=== PATIENT | female | born 1955 | race Caucasian/White ===

== ENCOUNTER 2016-09-08 17:15 | Inpatient (IN) | payer MEDICARE ==
[~2016-09-08] VITALS: Ht 170.2 cm; Wt 103.6 kg
[~2016-09-08 17:15] MED LIST: /ANUSHCSU PR; /ESOM40CA PO; /METO5TA PO; ACET50TA PO; ALBU17IN2 INH; ALBU20IN INH; ALBU83IN INH; ANUS2.5C2 TOP; ASPI81CH PO; ASPI81TA85 PO; BACITAB3 PO; BACT400T PO; BACT800T5 PO; DEBR6.5S AD; DIPH1CAP11 PO; DOCU10CA PO; DOXY200C PO; DOXY75CA3 PO; FLUT22IN INH; FURO40TA2 PO; MUCI600T34 PO; NEXI20GR PO; PRED10PA PO; PRED10TA PO; PRED10TA2 PO; RANI1TAB6 PO; REGL5TAB2 PO; ROBISYP5 PO; SYMB16INH INH; SYMB80INH INH
[2016-09-08 18:05] LABS: BASO # 0.1 K/mm3 (0.0-0.2); BASO % 0.8 % (0.0-1.0); EOS # 0.3 K/mm3 (0.0-0.50); EOS % 2.5 % (0.0-3.0); LARGE UNSTAINED CELL # 0.1 K/mm3 (0.0-0.4); LYMPH # 1.1 K/mm3 (1.5-4.5); LYMPH % 9.5 % (24.0-44.0); MEAN CORPUSCULAR VOLUME 87.5 fl (80.0-96.0); MONO # 0.3 K/mm3 (0.0-0.8); MONO % 3.1 % (0.0-5.0); NEUTROPHILS # 8.8 K/mm3 (1.8-7.7); NEUTROPHILS % 83.2 % (36.0-66.0); PLATELET COUNT, AUTOMATED 242 k/mm3 (150-450); RED CELL DISTRIBUTION WIDTH 14.1 % (11.5-14.5); WHITE BLOOD COUNT 10.6 K/mm3 (4.0-10.0)
[2016-09-08] MEDS ORDERED: BENZONATATE 100 MG CAP PO ONE (18:15)
[2016-09-08 18:17] LABS: CALCIUM LEVEL 9.5 MG/DL (8.5-10.1); CREATININE FOR GFR 1.11 MG/DL (0.55-1.02); GLOMERULAR FILTRATION RATE 53.6 (>51); POTASSIUM SERUM 4.2 MEQ/L (3.5-5.1)
[2016-09-08 18:28] LABS: ABG BASE EXCESS 0.7 (-2.0-2.0); ABG HCO3 24.9 MEQ/L (22.0-26.0); ABG PARTIAL PRESSURE CO2 38.8 mmHg (35.0-45.0); ABG PARTIAL PRESSURE O2 49.8 mmHg (75.0-100.0); ABG STANDARD HCO3 24.8 MEQ/L (22.0-26.0); ABG TOTAL CO2 26.1 MEQ/L (22.0-29.0); ABG pH (ARTERIAL) 7.426 UNITS (7.350-7.450)
[2016-09-08] MEDS: IPRATROPIUM 0.5MG/ALBUTEROL 2.5MG INH SOL UD 3ML (DUONEB)(J7620) NEB PRN ×3 (18:30→18:40)
--- NOTE | 2016-09-08 19:02 | REP ---
PORTABLE CHEST, ONE VIEW: HISTORY: Cough. COMPARISON: 01/14/2016 An increase in interstitial markings is present in the lungs. Bullae are present in the upper lobes. The heart is normal in size. The pulmonary vasculature is normal in appearance. IMPRESSION: COPD. Signed by Gucci Tabor MD 09/08/2016 07:16 P
[2016-09-08] MEDS ORDERED: ONDANSETRON 4MG/2ML VIAL (J2405) IV PRN (19:45)
[2016-09-08] MEDS ORDERED: ALBUTEROL SULFATE 2.5 MG/0.5 ML INH NEB SOLN NEB PRN (19:45)
[2016-09-08] MEDS ORDERED: BISACODYL 10 MG SUPP PR PRN (19:45)
[2016-09-08] MEDS: IPRATROPIUM 0.5MG/ALBUTEROL 2.5MG INH SOL UD 3ML (DUONEB)(J7620) NEB SCH (20:00)
[2016-09-08] MEDS ORDERED: ASPI1TAB PO (20:14)
[2016-09-08 20:15] VITALS: BP 134/72
[2016-09-08] MEDS ORDERED: DOCU100C PO (20:17)
[2016-09-08] MEDS ORDERED: GUAISYP4 PO (20:17)
[2016-09-08] MEDS ORDERED: FURO40TA2 PO (20:17)
[2016-09-08] MEDS: SENOKOT S TAB PO SCH (20:22)
[2016-09-08] MEDS ORDERED: diphenhydrAMINE INJ 50MG/ML VIAL (J1200) IV PRN (21:15)
[2016-09-08] MEDS ORDERED: predniSONE 20 MG TAB PO ONE (21:15)
[2016-09-08] MEDS: cefTRIAXone SOD 1 GM in D5W MINI-BAG PLUS 50 ML IV SCH (21:46)
[2016-09-08] MEDS: OMEPRAZOLE 20 MG CAP PO SCH (21:46)
[2016-09-08] MEDS: ACETAMINOPHEN TAB 650MG DOSE (2X325MG) PO PRN (21:46)
[2016-09-08 22:00] VITALS: BP 130/68
[2016-09-09] MEDS: IPRATROPIUM 0.5MG/ALBUTEROL 2.5MG INH SOL UD 3ML (DUONEB)(J7620) NEB SCH ×4 (01:26→17:56)
[2016-09-09 01:27] VITALS: O2SAT 89
[2016-09-09] MEDS ORDERED: SODIUM CHLORIDE 0.9% 1000 ML IV ONE (02:00)
[2016-09-09 06:37] LABS: BASO % 0.3 % (0.0-1.0); EOS # 0.1 K/mm3 (0.0-0.50); LARGE UNSTAINED CELL # 0.1 K/mm3 (0.0-0.4); LARGE UNSTAINED CELL % 0.7 % (0.0-4.0); LYMPH # 0.5 K/mm3 (1.5-4.5); LYMPH % 5.8 % (24.0-44.0); MEAN CORPUSCULAR HEMOGLOBIN 28.2 pg (27.0-33.0); MEAN CORPUSCULAR HGB CONC 32.2 g/dl (32.0-36.5); MEAN CORPUSCULAR VOLUME 87.5 fl (80.0-96.0); MONO # 0.2 K/mm3 (0.0-0.8); MONO % 2.3 % (0.0-5.0); NEUTROPHILS # 7.1 K/mm3 (1.8-7.7); NEUTROPHILS % 89.8 % (36.0-66.0); PLATELET COUNT, AUTOMATED 218 k/mm3 (150-450); WHITE BLOOD COUNT 7.9 K/mm3 (4.0-10.0)
[2016-09-09] MEDS: ACETAMINOPHEN TAB 650MG DOSE (2X325MG) PO PRN ×3 (06:46→18:41)
[2016-09-09 06:49] LABS: ANION GAP 8 MEQ/L (8-16); BLOOD UREA NITROGEN 12 MG/DL (7-18); CALCIUM LEVEL 9.3 MG/DL (8.5-10.1); CARBON DIOXIDE LEVEL 23 MEQ/L (21-32); CHLORIDE LEVEL 110 MEQ/L (98-107); CREATININE FOR GFR 0.95 MG/DL (0.55-1.02); GLOMERULAR FILTRATION RATE > 60.0 (>51); GLUCOSE, FASTING 147 MG/DL (70-105); POTASSIUM SERUM 4.3 MEQ/L (3.5-5.1); SODIUM LEVEL 141 MEQ/L (136-145)
--- NOTE | 2016-09-09 07:28 | HPE ---
DATE OF ADMISSION: 09/08/2016 PRIMARY CARE PROVIDER: Dr. Bacilio Hughes CHIEF COMPLAINT: Increasing cough and shortness of breath for two days. PAST MEDICAL HISTORY: 1. Chronic obstructive pulmonary disease (COPD). 2. Obstructive sleep apnea (JIGNESH) on CPAP. 3. Gastroesophageal reflux disease (GERD). 4. Hypertension. 5. Gastroparesis. 6. Chronic hypoxic respiratory failure on 2 liters home oxygen. 7. Obesity. HISTORY OF PRESENT ILLNESS: This is a 60-year-old female who was in her usual state of health about two days ago when she got wet coming back from the store in the rain and since then she developed increasing shortness of breath and cough. She was using her puffers as well as nebulizers at home without improvement in the symptoms so came into the emergency room. In the emergency department (ED), the patient was noted to be hypoxic at 82% with 2 liters nasal oxygen. The patient was given back to back nebulizers with some improvement in her symptoms, however, still continued to be tachycardic and tachypneic so was admitted to the hospitalist service for COPD exacerbation. PAST SURGICAL HISTORY: 1. Hysterectomy. 2. Appendectomy. 3. Brain surgery as a child. 4. Cholecystectomy. FAMILY HISTORY: Noncontributory. ALLERGIES: - PENICILLIN - AZITHROMYCIN (apparently cause hives, however, patient has received them before) - ARIPIPRAZOLE (hives) - SULFA (vomiting) - QUINOLONES (rash) - TETRACYCLINE and DOXYCYCLINE (says has allergy, however, is vague) HOME MEDICATIONS: - albuterol sulfate 2.5 mg inhalation by nebulizer four times a day as needed - albuterol sulfate 2 puff inhalation every four hours as needed - aspirin 81 mg daily - Symbicort 2 puffs twice a day - diphenhydramine 25 mg by mouth every 6 hours as needed allergic reaction - Colace 100 mg by mouth twice a day as needed constipation - Lasix 40 mg daily - guaifenesin codeine 10 mg every 4 hours as needed cough - ranitidine two tablets by mouth daily REVIEW OF SYSTEMS: Complains of subjective fevers, however, has been afebrile here. Complains of cough and increased shortness of breath. Complains of some right ear pain. Denies any abdominal pain or nausea, however, has some vomiting which is related to bouts of coughing. Denies any chest pain or palpitations. PHYSICAL EXAMINATION: VITAL SIGNS: Temperature 98.9. Pulse 118. Blood pressure 153/83. Pulse oximetry 94% with 4 liters oxygen by nasal cannula. GENERAL: Patient awake, alert, and oriented times three sitting up in bed in no acute distress. HEENT: Normocephalic, atraumatic. Moist mucous membranes. Anicteric eyes. CHEST: Bilateral wheezing with poor air entry. CARDIOVASCULAR: S1, S2, regular, tachycardic. No rub, murmur or gallop. ABDOMEN: Obese, soft, nontender. Bowel sounds present. EXTREMITIES: No edema. LABORATORY DATA: WBC 10.6, hemoglobin 15.6 and platelets 242. Sodium 141, potassium 4.2, chloride 108, bicarbonate 25, BUN 11, creatinine 1.1, glucose 108, lactic acid 2.1, calcium 9.5. Blood gas with pH 7.42, pCO2 38, pO2 49.8. Chest x-ray shows features of COPD and emphysema. ASSESSMENT: This is a 60-year-old female admitted for chronic obstructive pulmonary disease exacerbation. PLAN: 1. For COPD exacerbation, will continue the patient's nebulizers, oral prednisone, as well as will give ceftriaxone. The patient does have history of penicillin allergy, says causes rash but is vague about that and it is noted from the review of the chart that the patient has received ceftriaxone in the past. 2. Hypoxia. The patient has chronic hypoxic respiratory failure, but has increased oxygen requirement at this point because of COPD exacerbation. 3. Lactic acidosis. Most probably due to increased work of breathing from COPD exacerbation. Blood cultures have been sent to rule out for any infection. 4. Obstructive sleep apnea. Will continue with CPAP with home settings. 5. Gastroesophageal reflux disease and history of gastroparesis. Will continue with omeprazole twice a day. 6. Deep vein thrombosis prophylaxis has been ordered. 7. Gastrointestinal prophylaxis has been ordered. 8. Right ear pain with some redness. Patient is going to be started on ceftriaxone which should cover for any otitis related to bacterial infection.
[2016-09-09] MEDS: BUDESONIDE 0.5 MG/2 ML INHALATION SUSPENSION INH SCH ×2 (07:40→19:57)
[2016-09-09] MEDS: FORMOTEROL FUMARATE 20 MCG/2 ML INHALATION SOLUTION (PERFOROMIST) INH SCH ×2 (07:40→19:56)
[2016-09-09] MEDS ORDERED: predniSONE 20 MG TAB PO SCH (09:00)
[2016-09-09] MEDS ORDERED: FUROSEMIDE 40 MG TAB PO SCH (09:00)
[2016-09-09] MEDS: ENOXAPARIN 40 MG/0.4 ML SYRINGE (J1650) SC SCH (09:22)
[2016-09-09] MEDS: ASPIRIN 81 MG ENTERIC TAB PO SCH (09:23)
[2016-09-09] MEDS: OMEPRAZOLE 20 MG CAP PO SCH ×2 (09:23→20:25)
[2016-09-09] MEDS: SENOKOT S TAB PO SCH ×2 (09:23→20:26)
--- NOTE | 2016-09-09 10:57 | IPNPDOC ---
Subjective Date Seen The patient was seen on 09/09/16. Subjective Chief Complaint/HPI The patient is a 60-year-old female admitted with a reason for visit of Copd Exacerbation. General: Denies: Chills, Fatigue, Malaise, Night Sweats, Normal Appetite, Other Symptoms, ROS Unobtainable Constitutional: Denies: Chills, Fatigue, Fever, Lethargy, Malaise, Night Sweats , Other, Weakness, Weight Loss Eyes: Denies: Conjunctivae inflammation, Eyelid inflammation, Other, Pain, Redness, Vision change ENT: Denies: Dysphagia, Ear Pain, Epistaxis, Head Aches, Other Symptoms, Post Nasal Drip, Sinus Congestion, Sore Throat Skin: Denies: Breakdown, Bruising, Dry, Itching, Jaundice, Lesions, Nail Changes, Other, Rash Pulmonary: Reports: Cough (productive thick sputum), Dyspnea, Denies: Other Symptoms, Pleuritic Chest Pain Cardiovascular: Denies: Chest Pain, Edema, Lt Headedness, Orthopnea, Other Symptoms, Palpitations, Paroxysmal Noc. Dyspnea Gastrointestinal: Denies: Abdominal Pain, Constipation, Diarrhea, Hematochezia , Melena, Nausea, Other Symptoms, Vomiting Genitourinary: Denies: Dysuria, Frequency, Hematuria, Incontinence, Other Symptoms, Retention Hematologic: Denies: Bleeding Excessively, Bruising, Enlarged Lymph Nodes, Other Hematologic, Petecchia, Purpura Objective Physical Examination General Exam: Positive: Alert, Cooperative, No Acute Distress Eye Exam: Positive: Conjunctiva & lids normal, EOMI, PERRLA, Negative: Sclera icteric ENT Exam: Positive: Atraumatic, Mucous membr. moist/pink Neck Exam: Positive: Supple Chest Exam: Positive: Rales, Wheezing Heart Exam: Positive: Rate Normal, Regular Rhythm Abdomen Exam: Positive: Normal bowel sounds, Other (obese), Soft, Negative: Tenderness Psych Exam: Positive: Mental status NL, Oriented x 3 Assessment /Plan Problems (1) Acute on chronic respiratory failure with hypoxia Status: Acute Response to Treatment: Improving Discussed With: Patient Problem Specific Plan: Monitor Clinically Problem Text: Sputum culture pending Respiratory panel pending Continue steroids, respiratory regimen. IS, acapella, mucolytics. Multiple drug allergies. Has been started on ceftriaxone. Supplemental O2 to maintain O2 sats 88-92%. Baseline 2L. Lactic acidosis- appears to be improving-trending down. continue to follow. (2) COPD exacerbation Status: Acute Discussed With: Patient Problem Specific Plan: Monitor Clinically Problem Text: Continue as per above - respiratory failure. (3) JIGNESH on CPAP Status: Chronic Discussed With: Patient Problem Text: Continue with CPAP. (4) GERD (gastroesophageal reflux disease) Status: Chronic Problem Text: Prilosec (5) HTN (hypertension) Status: Chronic Discussed With: Patient Problem Specific Plan: Monitor Clinically Problem Text: Lasix on hold. (6) Gastroparesis Status: Chronic Discussed With: Patient Problem Specific Plan: Monitor Clinically (7) Obesity Status: Chronic Problem Text: Further complicating factor to her medical management. (8) Nicotine addiction Status: Chronic Discussed With: Patient Problem Text: Counselling and cessation assistance discussed at bedside. Agreeable to start nicotine replacement therapy. Plan/VTE VTE Prophylaxis Ordered?: Yes (Lovenox) Plan Diet: Advance Activity: Continue Current Therapy: PT, OT Medications: Start Antibiotics Respiratory: Wean Oxygen Diagnostics: Repeat Labs in AM, Obtain Cultures Anticipated Discharge: Home, Home With Services VS, I&O, 24H, [facility] Vital Signs/I&O Vital Signs Date Time Temp Pulse Resp B/P Pulse Ox O2 Delivery O2 Flow Rate FiO2 09/09/16 09:00 Nasal Cannula 3.0 09/09/16 01:27 87 09/09/16 01:27 89 09/08/16 22:00 97.9 20 130/68 I&O- Last 24 Hours up to 6 AM 09/09/16 05:59 Intake Total 1710 ml Output Total 500 ml Balance 1210 ml Laboratory Data 24H LABS Laboratory Tests 2 09/08/16 17:40: Anion Gap 8, White Blood Count 10.6H, Red Blood Count 5.56H, Hemoglobin 15.6, Hematocrit 48.7H, Mean Corpuscular Volume 87.5, Mean Corpuscular Hemoglobin 28.0 , Mean Corpuscular Hemoglobin Concent 32.0, Red Cell Distribution Width 14.1, Platelet Count 242, Neutrophils (%) (Auto) 83.2H, Lymphocytes (%) (Auto) 9.5L, Monocytes (%) (Auto) 3.1, Eosinophils (%) (Auto) 2.5, Basophils (%) (Auto) 0.8, Neutrophils # (Auto) 8.8H, Lymphocytes # (Auto) 1.1L, Monocytes # (Auto) 0.3, Eosinophils # (Auto) 0.3, Basophils # (Auto) 0.1, Blood Urea Nitrogen 11, Creatinine 1.11H, Sodium Level 141, Potassium Level 4.2, Chloride Level 108H, Carbon Dioxide Level 25, Calcium Level 9.5, Glomerular Filtration Rate 53.6, Lactic Acid Level 2.1*H, Large Unclassified Cells # 0.1, Large Unclassified Cells % 1.0 09/08/16 18:05: Arterial Blood pH 7.426, Arterial Blood Partial Pressure CO2 38.8, Arterial Blood Partial Pressure O2 49.8*L, Arterial Blood Total CO2 26.1, Arterial Blood HCO3 24.9, Arterial Blood Base Excess 0.7, Arterial Blood Oxygen Saturation 87.3L, Blood Gas Bicarbonate Standard 24.8 09/08/16 22:14: Lactic Acid Followup at 4 Hours 4.7*H 09/09/16 02:02: Lactic Acid Level 2.7*H 09/09/16 06:14: Anion Gap 8, White Blood Count 7.9, Red Blood Count 5.14, Hemoglobin 14.5, Hematocrit 44.9, Mean Corpuscular Volume 87.5, Mean Corpuscular Hemoglobin 28.2 , Mean Corpuscular Hemoglobin Concent 32.2, Red Cell Distribution Width 14.0, Platelet Count 218, Neutrophils (%) (Auto) 89.8H, Lymphocytes (%) (Auto) 5.8L, Monocytes (%) (Auto) 2.3, Eosinophils (%) (Auto) 1.0, Basophils (%) (Auto) 0.3, Neutrophils # (Auto) 7.1, Lymphocytes # (Auto) 0.5L, Monocytes # (Auto) 0.2, Eosinophils # (Auto) 0.1, Basophils # (Auto) 0.0, Blood Urea Nitrogen 12, Creatinine 0.95, Sodium Level 141, Potassium Level 4.3, Chloride Level 110H, Carbon Dioxide Level 23, Calcium Level 9.3, Glomerular Filtration Rate > 60.0, Lactic Acid Level 2.3*H, Large Unclassified Cells # 0.1, Large Unclassified Cells % 0.7 09/09/16 10:38: CBC/BMP Laboratory Tests 09/08/16 17:40 Calcium Level 9.5, Red Blood Count 5.56 H, Mean Corpuscular Volume 87.5, Mean Corpuscular Hemoglobin 28.0, Mean Corpuscular Hemoglobin Concent 32.0, Red Cell Distribution Width 14.1, Neutrophils (%) (Auto) 83.2 H, Lymphocytes (%) (Auto) 9.5 L, Monocytes (%) (Auto) 3.1, Eosinophils (%) (Auto) 2.5, Basophils (%) (Auto ) 0.8, Neutrophils # (Auto) 8.8 H, Lymphocytes # (Auto) 1.1 L, Monocytes # (Auto ) 0.3, Eosinophils # (Auto) 0.3, Basophils # (Auto) 0.1 09/09/16 06:14 Calcium Level 9.3, Red Blood Count 5.14, Mean Corpuscular Volume 87.5, Mean Corpuscular Hemoglobin 28.2, Mean Corpuscular Hemoglobin Concent 32.2, Red Cell Distribution Width 14.0, Neutrophils (%) (Auto) 89.8 H, Lymphocytes (%) (Auto) 5.8 L, Monocytes (%) (Auto) 2.3, Eosinophils (%) (Auto) 1.0, Basophils (%) (Auto ) 0.3, Neutrophils # (Auto) 7.1, Lymphocytes # (Auto) 0.5 L, Monocytes # (Auto) 0.2, Eosinophils # (Auto) 0.1, Basophils # (Auto) 0.0 Microbiology Microbiology 09/08/16 Blood Culture, Received Pending 09/08/16 Blood Culture, Received Pending 09/08/16 Gram Stain - Final, Complete 09/08/16 Sputum Culture - Final, Complete 09/08/16 Influenza Virus Type A Antigen - Final, Complete 09/08/16 Influenza Virus Type B Antigen - Final, Complete MOISES REAGAN MD Sep 09, 2016 10:57
[2016-09-09] MEDS ORDERED: NS 1,000 ML IV SCH (11:30)
[2016-09-09] MEDS: methylPREDNISolone INJ 125 MG/2 ML VIAL (J2930) IV SCH (12:58)
[2016-09-09] MEDS: NICOTINE 14 MG/24 HR TRANSDERMAL TD SCH (12:59)
[2016-09-09 14:00] VITALS: BP 146/75
[2016-09-09] MEDS: guaiFENesin SYRUP 200 MG/10 ML UDC PO PRN (15:54)
--- NOTE | 2016-09-09 18:28 | ECGEPIP ---
Stationary ECG Study [facility] - ED Test Date: 2016-09-08 Pat Name: EILZABETH BRENNAN Department: Room: - Gender: F Mental Health Technician: : [id number] Requested By: TEO TAVERAS PA-C. Order Number: [id number] Reading MD: Sukhjinder Mckeon Measurements Intervals Mcewen Rate: 125 P: 73 ID: [id number] QRS: 37 QRSD: 78 T: 67 QT: 336 QTc: 485 Interpretive Statements SINUS TACHYCARDIA POSSIBLE LAE NONSPECIFIC ST & T-WAVE ABNORMALITY SIMILAR TO 03/08/15 Electronically Signed On 09-09-2016 18:27:40 EDT by Sukhjinder Mckeon
[2016-09-09 19:11] LABS: CALCIUM LEVEL 9.3 MG/DL (8.5-10.1); CREATININE FOR GFR 1.13 MG/DL (0.55-1.02); GLOMERULAR FILTRATION RATE 52.5 (>51); POTASSIUM SERUM 4.8 MEQ/L (3.5-5.1)
[2016-09-09 20:20] VITALS: BP 133/74
[2016-09-09] MEDS: cefTRIAXone SOD 1 GM in D5W MINI-BAG PLUS 50 ML IV SCH (20:26)
[2016-09-09] MEDS: OSELTAMIVIR PHOSPHATE 75 MG CAP (TAMIFLU) PO SCH (20:26)
[2016-09-10] MEDS: ACETAMINOPHEN TAB 650MG DOSE (2X325MG) PO PRN ×5 (00:33→22:01)
[2016-09-10] MEDS: methylPREDNISolone INJ 125 MG/2 ML VIAL (J2930) IV SCH ×2 (00:33→12:47)
[2016-09-10] MEDS: guaiFENesin SYRUP 200 MG/10 ML UDC PO PRN ×3 (00:33→17:48)
[2016-09-10] MEDS: ANALGESIC BALM CRM 120 GM TOP PRN (00:34)
[2016-09-10] MEDS: IPRATROPIUM 0.5MG/ALBUTEROL 2.5MG INH SOL UD 3ML (DUONEB)(J7620) NEB SCH ×4 (01:39→20:00)
[2016-09-10 05:40] VITALS: BP 160/89
[2016-09-10 06:38] LABS: BASO % 0.1 % (0.0-1.0); EOS # 0.1 K/mm3 (0.0-0.50); EOS % 0.7 % (0.0-3.0); LARGE UNSTAINED CELL # 0.1 K/mm3 (0.0-0.4); LARGE UNSTAINED CELL % 0.6 % (0.0-4.0); LYMPH # 0.5 K/mm3 (1.5-4.5); LYMPH % 5.3 % (24.0-44.0); MEAN CORPUSCULAR HEMOGLOBIN 28.2 pg (27.0-33.0); MEAN CORPUSCULAR HGB CONC 31.8 g/dl (32.0-36.5); MEAN CORPUSCULAR VOLUME 88.8 fl (80.0-96.0); MONO # 0.3 K/mm3 (0.0-0.8); MONO % 2.9 % (0.0-5.0); NEUTROPHILS # 8.7 K/mm3 (1.8-7.7); NEUTROPHILS % 90.5 % (36.0-66.0); PLATELET COUNT, AUTOMATED 222 k/mm3 (150-450); RED CELL DISTRIBUTION WIDTH 14.2 % (11.5-14.5); WHITE BLOOD COUNT 9.6 K/mm3 (4.0-10.0)
[2016-09-10 06:55] LABS: ANION GAP 5 MEQ/L (8-16); BLOOD UREA NITROGEN 13 MG/DL (7-18); CALCIUM LEVEL 9.1 MG/DL (8.5-10.1); CARBON DIOXIDE LEVEL 27 MEQ/L (21-32); CHLORIDE LEVEL 110 MEQ/L (98-107); GLOMERULAR FILTRATION RATE > 60.0 (>51); GLUCOSE, FASTING 163 MG/DL (70-105); POTASSIUM SERUM 4.6 MEQ/L (3.5-5.1); SODIUM LEVEL 142 MEQ/L (136-145)
[2016-09-10] MEDS: BUDESONIDE 0.5 MG/2 ML INHALATION SUSPENSION INH SCH ×2 (07:23→19:47)
[2016-09-10] MEDS: FORMOTEROL FUMARATE 20 MCG/2 ML INHALATION SOLUTION (PERFOROMIST) INH SCH ×2 (07:24→19:47)
--- NOTE | 2016-09-10 08:04 | IPNPDOC ---
Subjective Date Seen The patient was seen on 09/10/16. Subjective Chief Complaint/HPI The patient is a 60-year-old female admitted with a reason for visit of Copd Exacerbation. General: Denies: Chills, Fatigue, Malaise, Night Sweats, Normal Appetite, Other Symptoms, ROS Unobtainable Constitutional: Denies: Chills, Fatigue, Fever, Lethargy, Malaise, Night Sweats , Other, Weakness, Weight Loss Eyes: Denies: Conjunctivae inflammation, Eyelid inflammation, Other, Pain, Redness, Vision change ENT: Denies: Dysphagia, Ear Pain, Epistaxis, Head Aches, Other Symptoms, Post Nasal Drip, Sinus Congestion, Sore Throat Skin: Denies: Breakdown, Bruising, Dry, Itching, Jaundice, Lesions, Nail Changes, Other, Rash Pulmonary: Reports: Cough (productive yellow/brown sputum), Dyspnea, Denies: Other Symptoms, Pleuritic Chest Pain Cardiovascular: Denies: Chest Pain, Edema, Lt Headedness, Orthopnea, Other Symptoms, Palpitations, Paroxysmal Noc. Dyspnea Gastrointestinal: Reports: Abdominal Pain, Denies: Constipation, Diarrhea, Hematochezia, Melena, Nausea, Other Symptoms , Vomiting Objective Physical Examination General Exam: Positive: Alert, Cooperative, No Acute Distress, Other (hirsutism ) Eye Exam: Positive: Conjunctiva & lids normal, EOMI, PERRLA, Negative: Sclera icteric ENT Exam: Positive: Atraumatic, Mucous membr. moist/pink Neck Exam: Positive: Supple Chest Exam: Positive: Diminished, Rales, Wheezing Heart Exam: Positive: Rate Normal, Regular Rhythm Abdomen Exam: Positive: Normal bowel sounds, Other (obese), Soft, Negative: Tenderness Psych Exam: Positive: Mental status NL, Oriented x 3 Assessment /Plan Problems (1) Acute on chronic respiratory failure with hypoxia Status: Acute Response to Treatment: Improving Discussed With: Patient Problem Specific Plan: Monitor Clinically Problem Text: Sputum culture pending - repeat - previous specimen contaminated. Respiratory panel positive influenza B. Continue steroids, respiratory regimen. IS, acapella, mucolytics. Multiple drug allergies. Continue ceftriaxone. Supplemental O2 to maintain O2 sats 88-92%. Baseline 2L. Lactic acidosis- likely secondary to work of breathing - continue to follow. (2) COPD exacerbation Status: Acute Discussed With: Patient Problem Specific Plan: Monitor Clinically Problem Text: Continue as per above - respiratory failure. (3) JIGNESH on CPAP Status: Chronic Discussed With: Patient Problem Text: Continue with CPAP. (4) GERD (gastroesophageal reflux disease) Status: Chronic Problem Text: Prilosec (5) HTN (hypertension) Status: Chronic Discussed With: Patient Problem Specific Plan: Monitor Clinically Problem Text: Lasix on hold. (6) Gastroparesis Status: Chronic Discussed With: Patient Problem Specific Plan: Monitor Clinically (7) Obesity Status: Chronic Problem Text: Further complicating factor to her medical management. (8) Nicotine addiction Status: Chronic Discussed With: Patient Problem Text: Counselling and cessation assistance discussed at bedside. Agreeable to start nicotine replacement therapy. Plan/VTE VTE Prophylaxis Ordered?: Yes (Lovenox) Plan Diet: Advance Activity: Continue Current Therapy: PT, OT Medications: Start Antibiotics Respiratory: Wean Oxygen Diagnostics: Repeat Labs in AM, Obtain Cultures, CT Anticipated Discharge: Home, Home With Services VS, I&O, 24H, [facility] Vital Signs/I&O Vital Signs Date Time Temp Pulse Resp B/P Pulse Ox O2 Delivery O2 Flow Rate FiO2 09/10/16 05:40 97.7 88 17 160/89 93 Nasal Cannula 4.0 I&O- Last 24 Hours up to 6 AM 09/10/16 06:00 Intake Total 1440 ml Output Total 500 ml Balance 940 ml Laboratory Data 24H LABS Laboratory Tests 2 09/09/16 10:38: Lactic Acid Followup at 4 Hours 3.1*H 09/09/16 18:35: Anion Gap 4L, Blood Urea Nitrogen 14, Creatinine 1.13H, Sodium Level 140, Potassium Level 4.8, Chloride Level 109H, Carbon Dioxide Level 27, Calcium Level 9.3, Glomerular Filtration Rate 52.5 09/10/16 06:22: Anion Gap 5L, Blood Urea Nitrogen 13, Creatinine 1.00, Sodium Level 142, Potassium Level 4.6, Chloride Level 110H, Carbon Dioxide Level 27, Calcium Level 9.1, Glomerular Filtration Rate > 60.0, White Blood Count 9.6, Red Blood Count 5.15, Hemoglobin 14.5, Hematocrit 45.7, Mean Corpuscular Volume 88.8, Mean Corpuscular Hemoglobin 28.2, Mean Corpuscular Hemoglobin Concent 31.8L, Red Cell Distribution Width 14.2, Platelet Count 222, Neutrophils (%) (Auto) 90.5H, Lymphocytes (%) (Auto) 5.3L, Monocytes (%) (Auto) 2.9, Eosinophils (%) ( Auto) 0.7, Basophils (%) (Auto) 0.1, Neutrophils # (Auto) 8.7H, Lymphocytes # ( Auto) 0.5L, Monocytes # (Auto) 0.3, Eosinophils # (Auto) 0.1, Basophils # (Auto ) 0.0, Large Unclassified Cells # 0.1, Large Unclassified Cells % 0.6 CBC/BMP Laboratory Tests 09/09/16 18:35 Calcium Level 9.3 09/10/16 06:22 Calcium Level 9.1, Red Blood Count 5.15, Mean Corpuscular Volume 88.8, Mean Corpuscular Hemoglobin 28.2, Mean Corpuscular Hemoglobin Concent 31.8 L, Red Cell Distribution Width 14.2, Neutrophils (%) (Auto) 90.5 H, Lymphocytes (%) ( Auto) 5.3 L, Monocytes (%) (Auto) 2.9, Eosinophils (%) (Auto) 0.7, Basophils (% ) (Auto) 0.1, Neutrophils # (Auto) 8.7 H, Lymphocytes # (Auto) 0.5 L, Monocytes # (Auto) 0.3, Eosinophils # (Auto) 0.1, Basophils # (Auto) 0.0 Microbiology Microbiology 09/08/16 Blood Culture - Preliminary, Resulted No growth after 24 hours . All specim... 09/08/16 Blood Culture - Preliminary, Resulted No growth after 24 hours . All specim... 09/08/16 Gram Stain - Final, Complete 09/08/16 Sputum Culture - Final, Complete 09/08/16 Influenza Virus Type A Antigen - Final, Complete 09/08/16 Influenza Virus Type B Antigen - Final, Complete 09/08/16 Respiratory Virus Panel (PCR) (JOHNNY) - Final, Complete Influenza B MOISES REAGAN MD Sep 10, 2016 08:04
--- NOTE | 2016-09-10 09:05 | REP ---
CT abdomen pelvis without IV or bowel contrast: Comparison is 07/29/2008. The visualized lung nava are unremarkable except for dependent atelectasis. The unenhanced hepatic parenchyma is homogeneous and unremarkable. There are surgical clips in the gallbladder fossa compatible with cholecystectomy. The pancreas and spleen are normal size and unremarkable. The adrenals and kidneys are normal size and unremarkable. On the comparison study there was a right renal cyst at the mid pole. This is seen to better advantage on the comparison study that was performed with IV contrast. The abdominal aorta is unremarkable. The bowel and mesentery are unremarkable. A few surgical clips in the mesentery are incidentally noted. These are unchanged. Pelvis: There is a hysterectomy. Vaginal cuff and adnexa are unremarkable. The bladder is unremarkable. There is descending colon and sigmoid colon diverticulosis without diverticulitis. The bladder is unremarkable. There is no adenopathy or ascites. Impression: Diverticulosis without diverticulitis. No bowel distension or obstruction. Cholecystectomy and hysterectomy. The patient reportedly has an appendectomy. No adenopathy, mass or ascites. Signed by Herminio Batista MD 09/10/2016 08:57 A
[2016-09-10] MEDS: ENOXAPARIN 40 MG/0.4 ML SYRINGE (J1650) SC SCH (09:27)
[2016-09-10] MEDS: ASPIRIN 81 MG ENTERIC TAB PO SCH (09:27)
[2016-09-10] MEDS: SENOKOT S TAB PO SCH ×2 (09:27→21:59)
[2016-09-10] MEDS: OSELTAMIVIR PHOSPHATE 75 MG CAP (TAMIFLU) PO SCH ×2 (09:27→21:59)
[2016-09-10] MEDS: OMEPRAZOLE 20 MG CAP PO SCH ×2 (09:27→21:59)
[2016-09-10] MEDS: NICOTINE 14 MG/24 HR TRANSDERMAL TD SCH (09:28)
[2016-09-10 14:00] VITALS: BP 138/74
--- NOTE | 2016-09-10 19:08 | ECHO ---
DATE OF PROCEDURE: 09/09/2016 AGE: 60 GENDER: Female HEIGHT: 67 inches WEIGHT: 227 pounds BODY SURFACE AREA: 2.13 m2. Inpatient [facility] Room 4211. REFERRING PHYSICIAN: Dr. Lizzie Davies INDICATION: Dyspnea. MEASUREMENTS: 2-D measurements: RV - 4.3 cm LV - 3.6 cm Septum- 1.0 cm Posterior wall- 1.0 cm Aortic root- 2.8 cm LA - 3.5 cm LVEF 75% Doppler measurements: AV - 1.4 m/sec LVOT - 1.3 m/sec LVOT diameter- 1.8 cm MVE - 116 A 137 E/A ratio 0.8. Early mitral deceleration time: 222 ms E-Prime 8 A-Prime 14 E/E Prime ratio 14.7 PV - 0.8 m/sec Pulmonary artery acceleration time- 106 ms RVSP - 55-60 mmHg IVC - 2.1 cm COMMENTS: Sinus tachycardia without intraventricular conduction disturbance. Technically difficult study in light of the patient's body habitus but diagnostically useful information was still obtained. Normal left ventricular size and left atrial size. At least mildly dilated right heart chambers. Normal left ventricular (LV) wall thickness. On real-time imaging from the parasternal and apical projections. Left and right ventricular wall motion was symmetrical and hyperkinetic. Normal-appearing mitral valvular apparatus and leaflet excursion with no posterior systolic buckling. Three equal size aortic cusps of normal thickness and cusp separation. Normal aortic root size. No apparent intracardiac mass or pericardial effusion. Guided continuous wave Doppler of her LV outflow track showed a normal peak systolic velocity against LV outflow tract obstruction. Pulsed and continuous wave Doppler of her LV inflow tract taken from the apical four-chamber projection showed normal diastolic filling velocities against mitral stenosis. There was a slightly more prominently diastolic / atrial dependent filling pattern. A degree of LV diastolic function was further confirmed by a prolonged early mitral deceleration time and tissue Doppler of her mitral annulus. Her estimated mean left atrial pressure was at least mildly increased at 15 mmHg. Pulsed and continuous wave Doppler of her pulmonary trunk showed a normal peak systolic velocity against right ventricular (RV) outflow tract obstruction. Her pulmonary artery acceleration time was abbreviated suggestive an elevated pulmonary vascular resistance. Guided continuous wave Doppler of her tricuspid valve allowed our estimation of her right ventricular systolic pressure (moderately severe to severely increased). Her inferior vena cava was mildly dilated with slightly reduced respiratory collapse again keeping with an elevated central venous pressure of 10-15 mmHg. CONCLUSIONS: A technically difficult study in light of the patient's body habitus. Normal left ventricular size, wall thickness and hyperkinetic wall motion. Normal left atrial size but Doppler evidence of a degree of impaired LV diastolic function and mildly elevated mean left atrial pressure. Mildly dilated right heart chambers with preserved RV systolic function but Doppler evidence of moderately severe to severe pulmonary hypertension. Mildly dilated inferior vena cava with reduced respiratory collapse suggestive an elevated central venous pressure.
[2016-09-10 21:05] VITALS: BP 146/73
[2016-09-10] MEDS: cefTRIAXone SOD 1 GM in D5W MINI-BAG PLUS 50 ML IV SCH (22:00)
[2016-09-10] MEDS: traMADol 50 MG TAB PO PRN (22:00)
[2016-09-11] MEDS: methylPREDNISolone INJ 125 MG/2 ML VIAL (J2930) IV SCH (00:52)
[2016-09-11] MEDS: IPRATROPIUM 0.5MG/ALBUTEROL 2.5MG INH SOL UD 3ML (DUONEB)(J7620) NEB SCH ×4 (02:00→20:00)
[2016-09-11] MEDS: guaiFENesin SYRUP 200 MG/10 ML UDC PO PRN ×3 (03:26→20:26)
[2016-09-11] MEDS: ACETAMINOPHEN TAB 650MG DOSE (2X325MG) PO PRN ×3 (05:14→20:28)
[2016-09-11 05:35] VITALS: BP 134/80
[2016-09-11 06:19] LABS: BASO % 0.1 % (0.0-1.0); EOS % 0.4 % (0.0-3.0); LARGE UNSTAINED CELL # 0.1 K/mm3 (0.0-0.4); LYMPH # 0.9 K/mm3 (1.5-4.5); LYMPH % 7.3 % (24.0-44.0); MEAN CORPUSCULAR HEMOGLOBIN 28.2 pg (27.0-33.0); MEAN CORPUSCULAR HGB CONC 31.3 g/dl (32.0-36.5); MEAN CORPUSCULAR VOLUME 90.1 fl (80.0-96.0); MONO # 0.5 K/mm3 (0.0-0.8); MONO % 4.7 % (0.0-5.0); NEUTROPHILS # 9.2 K/mm3 (1.8-7.7); NEUTROPHILS % 86.5 % (36.0-66.0); PLATELET COUNT, AUTOMATED 227 k/mm3 (150-450); RED CELL DISTRIBUTION WIDTH 14.4 % (11.5-14.5); WHITE BLOOD COUNT 10.6 K/mm3 (4.0-10.0)
[2016-09-11 06:44] LABS: ANION GAP 7 MEQ/L (8-16); BLOOD UREA NITROGEN 18 MG/DL (7-18); CALCIUM LEVEL 8.9 MG/DL (8.5-10.1); CARBON DIOXIDE LEVEL 27 MEQ/L (21-32); CHLORIDE LEVEL 109 MEQ/L (98-107); CREATININE FOR GFR 0.92 MG/DL (0.55-1.02); GLOMERULAR FILTRATION RATE > 60.0 (>51); GLUCOSE, FASTING 140 MG/DL (70-105); POTASSIUM SERUM 4.8 MEQ/L (3.5-5.1); SODIUM LEVEL 143 MEQ/L (136-145)
[2016-09-11] MEDS: BUDESONIDE 0.5 MG/2 ML INHALATION SUSPENSION INH SCH ×2 (07:20→19:38)
[2016-09-11] MEDS: FORMOTEROL FUMARATE 20 MCG/2 ML INHALATION SOLUTION (PERFOROMIST) INH SCH ×2 (07:20→19:37)
--- NOTE | 2016-09-11 08:42 | IPNPDOC ---
Subjective Date Seen The patient was seen on 09/11/16. Subjective Chief Complaint/HPI The patient is a 60-year-old female admitted with a reason for visit of Copd Exacerbation. General: Denies: Chills, Fatigue, Malaise, Night Sweats, Normal Appetite, Other Symptoms, ROS Unobtainable Constitutional: Denies: Chills, Fatigue, Fever, Lethargy, Malaise, Night Sweats , Other, Weakness, Weight Loss Eyes: Denies: Conjunctivae inflammation, Eyelid inflammation, Other, Pain, Redness, Vision change ENT: Denies: Dysphagia, Ear Pain, Epistaxis, Head Aches, Other Symptoms, Post Nasal Drip, Sinus Congestion, Sore Throat Skin: Denies: Breakdown, Bruising, Dry, Itching, Jaundice, Lesions, Nail Changes, Other, Rash Pulmonary: Reports: Cough, Dyspnea, Denies: Other Symptoms, Pleuritic Chest Pain Cardiovascular: Denies: Chest Pain, Edema, Lt Headedness, Orthopnea, Other Symptoms, Palpitations, Paroxysmal Noc. Dyspnea Gastrointestinal: Reports: Abdominal Pain, Denies: Constipation, Diarrhea, Hematochezia, Melena, Nausea, Other Symptoms , Vomiting Genitourinary: Denies: Dysuria, Frequency, Hematuria, Incontinence, Other Symptoms, Retention Objective Physical Examination General Exam: Positive: Alert, Cooperative, No Acute Distress, Other (hirsutism ) Eye Exam: Positive: Conjunctiva & lids normal, EOMI, PERRLA, Negative: Sclera icteric ENT Exam: Positive: Atraumatic, Mucous membr. moist/pink Neck Exam: Positive: Supple Chest Exam: Positive: Diminished, Rales, Wheezing Heart Exam: Positive: Rate Normal, Regular Rhythm Abdomen Exam: Positive: Normal bowel sounds, Other (obese), Soft, Negative: Tenderness Psych Exam: Positive: Mental status NL, Oriented x 3 Assessment /Plan Problems (1) Acute on chronic respiratory failure with hypoxia Status: Acute Response to Treatment: Improving Discussed With: Patient Problem Specific Plan: Monitor Clinically Problem Text: Sputum culture pending - repeat - previous specimen contaminated. Respiratory panel positive influenza B. Continue steroids, respiratory regimen. Transition to PO prednisone today. IS, acapella, mucolytics. Multiple drug allergies. Continue ceftriaxone. Supplemental O2 to maintain O2 sats 88-92%. Baseline 2L. CXR pending for interim eval. Lactic acidosis- likely secondary to work of breathing - resolved. (2) COPD exacerbation Status: Acute Discussed With: Patient Problem Specific Plan: Monitor Clinically Problem Text: Continue as per above - respiratory failure. (3) JIGNESH on CPAP Status: Chronic Discussed With: Patient Problem Text: Continue with CPAP. (4) GERD (gastroesophageal reflux disease) Status: Chronic Problem Text: Prilosec (5) HTN (hypertension) Status: Chronic Discussed With: Patient Problem Specific Plan: Monitor Clinically Problem Text: Resume lasix. (6) Gastroparesis Status: Chronic Discussed With: Patient Problem Specific Plan: Monitor Clinically (7) Obesity Status: Chronic Problem Text: Further complicating factor to her medical management. (8) Nicotine addiction Status: Chronic Discussed With: Patient Problem Text: Counselling and cessation assistance discussed at bedside. Agreeable to start nicotine replacement therapy. Plan/VTE VTE Prophylaxis Ordered?: Yes (Lovenox) Plan Diet: Advance Activity: Continue Current Therapy: PT, OT Medications: Start Antibiotics Respiratory: Wean Oxygen Diagnostics: Repeat Labs in AM, Obtain Cultures, CT Anticipated Discharge: Home, Home With Services VS, I&O, 24H, [facility] Vital Signs/I&O Vital Signs Date Time Temp Pulse Resp B/P Pulse Ox O2 Delivery O2 Flow Rate FiO2 09/11/16 05:35 97.4 79 17 134/80 96 Nasal Cannula 4.0 I&O- Last 24 Hours up to 6 AM 09/11/16 06:00 Intake Total 1370 ml Output Total 600 ml Balance 770 ml Laboratory Data 24H LABS Laboratory Tests 2 09/11/16 05:56: Anion Gap 7L, White Blood Count 10.6H, Red Blood Count 5.14, Hemoglobin 14.5, Hematocrit 46.4, Mean Corpuscular Volume 90.1, Mean Corpuscular Hemoglobin 28.2 , Mean Corpuscular Hemoglobin Concent 31.3L, Red Cell Distribution Width 14.4, Platelet Count 227, Neutrophils (%) (Auto) 86.5H, Lymphocytes (%) (Auto) 7.3L, Monocytes (%) (Auto) 4.7, Eosinophils (%) (Auto) 0.4, Basophils (%) (Auto) 0.1, Neutrophils # (Auto) 9.2H, Lymphocytes # (Auto) 0.9L, Monocytes # (Auto) 0.5, Eosinophils # (Auto) 0.0, Basophils # (Auto) 0.0, Blood Urea Nitrogen 18, Creatinine 0.92, Sodium Level 143, Potassium Level 4.8, Chloride Level 109H, Carbon Dioxide Level 27, Calcium Level 8.9, Glomerular Filtration Rate > 60.0, Large Unclassified Cells # 0.1, Large Unclassified Cells % 1.0 09/11/16 07:57: Lactic Acid Level 1.3 CBC/BMP Laboratory Tests 09/11/16 05:56 Calcium Level 8.9, Red Blood Count 5.14, Mean Corpuscular Volume 90.1, Mean Corpuscular Hemoglobin 28.2, Mean Corpuscular Hemoglobin Concent 31.3 L, Red Cell Distribution Width 14.4, Neutrophils (%) (Auto) 86.5 H, Lymphocytes (%) ( Auto) 7.3 L, Monocytes (%) (Auto) 4.7, Eosinophils (%) (Auto) 0.4, Basophils (% ) (Auto) 0.1, Neutrophils # (Auto) 9.2 H, Lymphocytes # (Auto) 0.9 L, Monocytes # (Auto) 0.5, Eosinophils # (Auto) 0.0, Basophils # (Auto) 0.0 Microbiology Microbiology 09/08/16 Blood Culture - Preliminary, Resulted No Growth after 48 hours. All Specime... 09/08/16 Blood Culture - Preliminary, Resulted No Growth after 48 hours. All Specime... 09/10/16 Gram Stain - Final, Resulted 09/10/16 Sputum Culture, Resulted Pending 09/08/16 Gram Stain - Final, Complete 09/08/16 Sputum Culture - Final, Complete 09/08/16 Influenza Virus Type A Antigen - Final, Complete 09/08/16 Influenza Virus Type B Antigen - Final, Complete 09/08/16 Respiratory Virus Panel (PCR) (JOHNNY) - Final, Complete Influenza B MOISES REAGAN MD Sep 11, 2016 08:42
[2016-09-11] MEDS: ASPIRIN 81 MG ENTERIC TAB PO SCH (09:37)
[2016-09-11] MEDS: FUROSEMIDE 40 MG TAB PO SCH (09:37)
[2016-09-11] MEDS: OSELTAMIVIR PHOSPHATE 75 MG CAP (TAMIFLU) PO SCH ×2 (09:37→20:26)
[2016-09-11] MEDS: OMEPRAZOLE 20 MG CAP PO SCH ×2 (09:38→20:26)
[2016-09-11] MEDS: ENOXAPARIN 40 MG/0.4 ML SYRINGE (J1650) SC SCH (09:38)
[2016-09-11] MEDS: NICOTINE 14 MG/24 HR TRANSDERMAL TD SCH (09:38)
[2016-09-11] MEDS: SENOKOT S TAB PO SCH ×2 (09:38→20:26)
[2016-09-11] MEDS: predniSONE 50 MG TAB PO SCH (09:38)
--- NOTE | 2016-09-11 10:17 | REP ---
PA LATERAL CHEST: 09/11/2016. Clinical history: Dyspnea, follow up evaluation. Comparison: Portable chest 09/08/2016, chest x-ray 01/14/2016, 12/01/2015. Findings: There is now some minor linear atelectatic change at the inferior aspect of the right hilum. There is underlying fibrosis, COPD and some emphysematous changes in the mid and upper lung zones with more mid and lower lung zone basilar fibrotic change. No pleural effusion or dense consolidation. Pulmonary arteries are prominent centrally suggesting pulmonary artery hypertension. The aorta is mildly tortuous but without aneurysm and normal for age. Airway intact. No apical scarring or pneumothorax. Bony thorax shows no compression deformity. No free air under the diaphragm. Impression: 1. COPD with pulmonary artery hypertension, bullous emphysematous changes and mid and lower lung fibrosis heaviest in the bases. 2. There is some superimposed linear atelectatic change at the inferior right hilum. No effusion, cardiomegaly or edema. No dense consolidation with air bronchograms. Signed by Jim Padgett MD 09/11/2016 08:20 P
[2016-09-11 14:00] VITALS: BP 144/72
[2016-09-11] MEDS ORDERED: MIRALAX *UNIT DOSE* 17GM PACKET PO PRN (16:00)
[2016-09-11] MEDS: DOCUSATE SODIUM 100 MG CAP PO PRN (16:12)
[2016-09-11] MEDS: traMADol 50 MG TAB PO PRN (18:31)
[2016-09-11] MEDS: ANALGESIC BALM CRM 120 GM TOP PRN (18:32)
[2016-09-11] MEDS: cefTRIAXone SOD 1 GM in D5W MINI-BAG PLUS 50 ML IV SCH (20:26)
[2016-09-11 21:35] VITALS: BP 129/61
[2016-09-12] MEDS: IPRATROPIUM 0.5MG/ALBUTEROL 2.5MG INH SOL UD 3ML (DUONEB)(J7620) NEB SCH ×4 (00:59→20:00)
[2016-09-12] MEDS: guaiFENesin SYRUP 200 MG/10 ML UDC PO PRN ×2 (04:37→17:51)
[2016-09-12] MEDS: ACETAMINOPHEN TAB 650MG DOSE (2X325MG) PO PRN ×2 (04:37→17:51)
[2016-09-12] MEDS: traMADol 50 MG TAB PO PRN ×2 (04:40→17:50)
[2016-09-12 04:55] VITALS: BP 155/81
[2016-09-12 05:52] LABS: BASO % 0.2 % (0.0-1.0); EOS % 0.3 % (0.0-3.0); LARGE UNSTAINED CELL # 0.1 K/mm3 (0.0-0.4); LARGE UNSTAINED CELL % 1.7 % (0.0-4.0); LYMPH # 0.9 K/mm3 (1.5-4.5); LYMPH % 14.1 % (24.0-44.0); MEAN CORPUSCULAR HEMOGLOBIN 28.5 pg (27.0-33.0); MEAN CORPUSCULAR HGB CONC 31.5 g/dl (32.0-36.5); MEAN CORPUSCULAR VOLUME 90.5 fl (80.0-96.0); MONO # 0.3 K/mm3 (0.0-0.8); MONO % 5.8 % (0.0-5.0); NEUTROPHILS # 4.5 K/mm3 (1.8-7.7); NEUTROPHILS % 77.9 % (36.0-66.0); PLATELET COUNT, AUTOMATED 204 k/mm3 (150-450); RED CELL DISTRIBUTION WIDTH 14.4 % (11.5-14.5); WHITE BLOOD COUNT 5.8 K/mm3 (4.0-10.0)
[2016-09-12 06:06] LABS: ANION GAP 8 MEQ/L (8-16); BLOOD UREA NITROGEN 14 MG/DL (7-18); CALCIUM LEVEL 8.2 MG/DL (8.5-10.1); CARBON DIOXIDE LEVEL 29 MEQ/L (21-32); CHLORIDE LEVEL 104 MEQ/L (98-107); CREATININE FOR GFR 0.98 MG/DL (0.55-1.02); GLOMERULAR FILTRATION RATE > 60.0 (>51); GLUCOSE, FASTING 194 MG/DL (70-105); POTASSIUM SERUM 4.1 MEQ/L (3.5-5.1); SODIUM LEVEL 141 MEQ/L (136-145)
[2016-09-12] MEDS: FORMOTEROL FUMARATE 20 MCG/2 ML INHALATION SOLUTION (PERFOROMIST) INH SCH ×2 (07:29→20:35)
[2016-09-12] MEDS: BUDESONIDE 0.5 MG/2 ML INHALATION SUSPENSION INH SCH ×2 (07:29→20:35)
--- NOTE | 2016-09-12 08:01 | IPNPDOC ---
Subjective Date Seen The patient was seen on 09/12/16. Subjective Chief Complaint/HPI The patient is a 60-year-old female admitted with a reason for visit of Copd Exacerbation. General: Denies: Chills, Fatigue, Malaise, Night Sweats, Normal Appetite, Other Symptoms, ROS Unobtainable Constitutional: Denies: Chills, Fatigue, Fever, Lethargy, Malaise, Night Sweats , Other, Weakness, Weight Loss Eyes: Denies: Conjunctivae inflammation, Eyelid inflammation, Other, Pain, Redness, Vision change ENT: Denies: Dysphagia, Ear Pain, Epistaxis, Head Aches, Other Symptoms, Post Nasal Drip, Sinus Congestion, Sore Throat Skin: Denies: Breakdown, Bruising, Dry, Itching, Jaundice, Lesions, Nail Changes, Other, Rash Pulmonary: Reports: Cough, Dyspnea, Denies: Other Symptoms, Pleuritic Chest Pain Cardiovascular: Denies: Chest Pain, Edema, Lt Headedness, Orthopnea, Other Symptoms, Palpitations, Paroxysmal Noc. Dyspnea Gastrointestinal: Denies: Abdominal Pain, Constipation, Diarrhea, Hematochezia , Melena, Nausea, Other Symptoms, Vomiting Genitourinary: Denies: Dysuria, Frequency, Hematuria, Incontinence, Other Symptoms, Retention Objective Physical Examination General Exam: Positive: Alert, Cooperative, No Acute Distress, Other (hirsutism ) Eye Exam: Positive: Conjunctiva & lids normal, EOMI, PERRLA, Negative: Sclera icteric ENT Exam: Positive: Atraumatic, Mucous membr. moist/pink Neck Exam: Positive: Supple Chest Exam: Positive: Diminished, Rales Heart Exam: Positive: Rate Normal, Regular Rhythm Abdomen Exam: Positive: Normal bowel sounds, Other (obese), Soft, Negative: Tenderness Psych Exam: Positive: Mental status NL, Oriented x 3 Assessment /Plan Problems (1) Acute on chronic respiratory failure with hypoxia Status: Acute Response to Treatment: Improving Discussed With: Patient Problem Specific Plan: Monitor Clinically Problem Text: Sputum culture pending - repeat - previous specimen contaminated. Respiratory panel positive influenza B. Continue steroids, respiratory regimen. IS, acapella, mucolytics. Multiple drug allergies. Continue ceftriaxone. Supplemental O2 to maintain O2 sats 88-92%. Baseline 2L. CXR pending for interim eval. Lactic acidosis- likely secondary to work of breathing - resolved. (2) COPD exacerbation Status: Acute Discussed With: Patient Problem Specific Plan: Monitor Clinically Problem Text: Continue as per above - respiratory failure. (3) JIGNESH on CPAP Status: Chronic Discussed With: Patient Problem Text: Continue with CPAP. (4) GERD (gastroesophageal reflux disease) Status: Chronic Problem Text: Prilosec (5) HTN (hypertension) Status: Chronic Discussed With: Patient Problem Specific Plan: Monitor Clinically Problem Text: Resume lasix. (6) Gastroparesis Status: Chronic Discussed With: Patient Problem Specific Plan: Monitor Clinically (7) Obesity Status: Chronic Problem Text: Further complicating factor to her medical management. (8) Nicotine addiction Status: Chronic Discussed With: Patient Problem Text: Counselling and cessation assistance discussed at bedside. Agreeable to start nicotine replacement therapy. Plan/VTE VTE Prophylaxis Ordered?: Yes (Lovenox) Plan Diet: Continue Current Activity: Continue Current Therapy: PT, OT Medications: Start Antibiotics Respiratory: Wean Oxygen Diagnostics: Repeat Labs in AM, Obtain Cultures Anticipated Discharge: Home, Home With Services Pending weaning O2 to baseline - 2L nasal cannula. PT/OT. Pending sputum cultures - receiving IV ceftriaxone. VS, I&O, 24H, [facility] Vital Signs/I&O Vital Signs Date Time Temp Pulse Resp B/P Pulse Ox O2 Delivery O2 Flow Rate FiO2 09/12/16 05:10 15 09/12/16 04:55 97.1 83 155/81 93 Room Air 09/11/16 21:35 4.0 I&O- Last 24 Hours up to 6 AM 09/12/16 05:59 Intake Total 2713 ml Output Total 1400 ml Balance 1313 ml Laboratory Data 24H LABS Laboratory Tests 2 09/12/16 05:26: Anion Gap 8, White Blood Count 5.8, Red Blood Count 4.94, Hemoglobin 14.1, Hematocrit 44.7, Mean Corpuscular Volume 90.5, Mean Corpuscular Hemoglobin 28.5 , Mean Corpuscular Hemoglobin Concent 31.5L, Red Cell Distribution Width 14.4, Platelet Count 204, Neutrophils (%) (Auto) 77.9H, Lymphocytes (%) (Auto) 14.1L, Monocytes (%) (Auto) 5.8H, Eosinophils (%) (Auto) 0.3, Basophils (%) (Auto) 0.2 , Neutrophils # (Auto) 4.5, Lymphocytes # (Auto) 0.9L, Monocytes # (Auto) 0.3, Eosinophils # (Auto) 0.0, Basophils # (Auto) 0.0, Blood Urea Nitrogen 14, Creatinine 0.98, Sodium Level 141, Potassium Level 4.1, Chloride Level 104, Carbon Dioxide Level 29, Calcium Level 8.2L, Glomerular Filtration Rate > 60.0, Large Unclassified Cells # 0.1, Large Unclassified Cells % 1.7 CBC/BMP Laboratory Tests 09/12/16 05:26 Calcium Level 8.2 L, Red Blood Count 4.94, Mean Corpuscular Volume 90.5, Mean Corpuscular Hemoglobin 28.5, Mean Corpuscular Hemoglobin Concent 31.5 L, Red Cell Distribution Width 14.4, Neutrophils (%) (Auto) 77.9 H, Lymphocytes (%) ( Auto) 14.1 L, Monocytes (%) (Auto) 5.8 H, Eosinophils (%) (Auto) 0.3, Basophils (%) (Auto) 0.2, Neutrophils # (Auto) 4.5, Lymphocytes # (Auto) 0.9 L, Monocytes # (Auto) 0.3, Eosinophils # (Auto) 0.0, Basophils # (Auto) 0.0 Microbiology Microbiology 09/08/16 Blood Culture - Preliminary, Resulted No Growth after 72 hours. All specime... 09/08/16 Blood Culture - Preliminary, Resulted No Growth after 72 hours. All specime... 09/10/16 Gram Stain - Final, Complete 09/10/16 Sputum Culture - Final, Complete 09/08/16 Gram Stain - Final, Complete 09/08/16 Sputum Culture - Final, Complete 09/08/16 Influenza Virus Type A Antigen - Final, Complete 09/08/16 Influenza Virus Type B Antigen - Final, Complete 09/08/16 Respiratory Virus Panel (PCR) (JOHNNY) - Final, Complete Influenza B MOISES REAGAN MD Sep 12, 2016 08:01
[2016-09-12] MEDS: OMEPRAZOLE 20 MG CAP PO SCH ×2 (10:10→20:02)
[2016-09-12] MEDS: FUROSEMIDE 40 MG TAB PO SCH (10:10)
[2016-09-12] MEDS: NICOTINE 14 MG/24 HR TRANSDERMAL TD SCH (10:10)
[2016-09-12] MEDS: predniSONE 50 MG TAB PO SCH (10:10)
[2016-09-12] MEDS: DOCUSATE SODIUM 100 MG CAP PO PRN (10:10)
[2016-09-12] MEDS: SENOKOT S TAB PO SCH ×2 (10:10→20:02)
[2016-09-12] MEDS: OSELTAMIVIR PHOSPHATE 75 MG CAP (TAMIFLU) PO SCH ×2 (10:10→20:02)
[2016-09-12] MEDS: ENOXAPARIN 40 MG/0.4 ML SYRINGE (J1650) SC SCH (10:11)
[2016-09-12] MEDS: ASPIRIN 81 MG ENTERIC TAB PO SCH (10:11)
[2016-09-12 14:00] VITALS: BP 151/82
[2016-09-12] MEDS: cefTRIAXone SOD 1 GM in D5W MINI-BAG PLUS 50 ML IV SCH (20:02)
[2016-09-12 22:00] VITALS: BP 130/72
[2016-09-12] MEDS: MAALOX 30 ML SUSP *UDC PO PRN (23:30)
[2016-09-13] MEDS: IPRATROPIUM 0.5MG/ALBUTEROL 2.5MG INH SOL UD 3ML (DUONEB)(J7620) NEB SCH ×4 (01:52→19:23)
[2016-09-13] MEDS: guaiFENesin SYRUP 200 MG/10 ML UDC PO PRN ×3 (03:36→21:17)
[2016-09-13] MEDS: ACETAMINOPHEN TAB 650MG DOSE (2X325MG) PO PRN ×2 (03:36→10:21)
[2016-09-13 06:00] VITALS: BP 131/82
[2016-09-13 06:26] LABS: BASO % 0.4 % (0.0-1.0); EOS % 0.5 % (0.0-3.0); LARGE UNSTAINED CELL # 0.2 K/mm3 (0.0-0.4); LARGE UNSTAINED CELL % 2.4 % (0.0-4.0); LYMPH # 1.5 K/mm3 (1.5-4.5); LYMPH % 20.9 % (24.0-44.0); MEAN CORPUSCULAR HEMOGLOBIN 28.3 pg (27.0-33.0); MEAN CORPUSCULAR HGB CONC 31.7 g/dl (32.0-36.5); MEAN CORPUSCULAR VOLUME 89.3 fl (80.0-96.0); MONO # 0.4 K/mm3 (0.0-0.8); MONO % 6.7 % (0.0-5.0); NEUTROPHILS # 4.3 K/mm3 (1.8-7.7); NEUTROPHILS % 69.1 % (36.0-66.0); PLATELET COUNT, AUTOMATED 211 k/mm3 (150-450); RED CELL DISTRIBUTION WIDTH 14.2 % (11.5-14.5); WHITE BLOOD COUNT 6.2 K/mm3 (4.0-10.0)
[2016-09-13 06:48] LABS: ANION GAP 7 MEQ/L (8-16); BLOOD UREA NITROGEN 16 MG/DL (7-18); CALCIUM LEVEL 8.6 MG/DL (8.5-10.1); CARBON DIOXIDE LEVEL 33 MEQ/L (21-32); CHLORIDE LEVEL 102 MEQ/L (98-107); CREATININE FOR GFR 0.89 MG/DL (0.55-1.02); GLOMERULAR FILTRATION RATE > 60.0 (>51); GLUCOSE, FASTING 101 MG/DL (70-105); SODIUM LEVEL 142 MEQ/L (136-145)
[2016-09-13] MEDS: FORMOTEROL FUMARATE 20 MCG/2 ML INHALATION SOLUTION (PERFOROMIST) INH SCH ×2 (07:12→19:23)
[2016-09-13] MEDS: BUDESONIDE 0.5 MG/2 ML INHALATION SUSPENSION INH SCH ×2 (07:12→19:23)
[2016-09-13] MEDS: FUROSEMIDE 40 MG TAB PO SCH (09:56)
[2016-09-13] MEDS: SENOKOT S TAB PO SCH ×2 (09:56→21:07)
[2016-09-13] MEDS: OSELTAMIVIR PHOSPHATE 75 MG CAP (TAMIFLU) PO SCH ×2 (09:56→21:07)
[2016-09-13] MEDS: ASPIRIN 81 MG ENTERIC TAB PO SCH (09:56)
[2016-09-13] MEDS: OMEPRAZOLE 20 MG CAP PO SCH ×2 (09:56→21:07)
[2016-09-13] MEDS: NICOTINE 14 MG/24 HR TRANSDERMAL TD SCH (09:56)
[2016-09-13] MEDS: ENOXAPARIN 40 MG/0.4 ML SYRINGE (J1650) SC SCH (09:57)
[2016-09-13] MEDS: predniSONE 50 MG TAB PO SCH (11:50)
[2016-09-13 14:00] VITALS: BP 179/81
--- NOTE | 2016-09-13 15:27 | IPN ---
DATE: 09/13/2016 SUBJECTIVE: The patient is seen and examined. States she still has shortness of breath when she ambulates to the bathroom. She is currently on 3 liters nasal cannula. No overnight events per nursing. The patient was afebrile. Denies any chest pain. Denies any cough. OBJECTIVE: VITAL SIGNS: Temperature 97.6, pulse 80, respiratory rate 20, blood pressure 131/82, pulse oximetry 93% on 4 liters. HEENT: Pupils equal, round, reactive to light and accommodation. NECK: Supple. No jugular venous distention (JVD). LUNGS: Diminished breath sounds bilaterally. CARDIAC: Regular rate and rhythm. No murmurs appreciated. ABDOMEN: Soft, nontender, nondistended, obese. EXTREMITIES: No clubbing, cyanosis. NEUROLOGIC: Cranial nerves II-XII grossly intact. No focal deficits. LABORATORY FINDINGS: WBC 6.2, hemoglobin 14.7, hematocrit 46.3, platelets 211. Sodium 142, potassium 4, chloride 102, BUN 16, creatinine 0.89, and fasting glucose 101. ASSESSMENT/PLAN: 1. Acute on chronic respiratory failure with hypoxia. The patient was positive for influenza B. Sputum cultures were negative. Patient is normally on oxygen at home 2 liters, currently requiring 3-4 liters to maintain oxygen saturations between 88-92%. Continue ceftriaxone. Continue Tamiflu. Patient is currently on oral prednisone 50 mg daily. Continue Robitussin every 8 hours as needed for cough. Continue Pulmicort, PerforomistLydia. 2. Chronic obstructive pulmonary disease (COPD) exacerbation. 3. Obstructive sleep apnea. Patient uses CPAP at home. Will continue. 4. History of gastroesophageal reflux disease. 5. Hypertension. 6. Obesity. 7. Nicotine addiction.
[2016-09-13 17:19] VITALS: BP 146/76
[2016-09-13] MEDS: cefTRIAXone SOD 1 GM in D5W MINI-BAG PLUS 50 ML IV SCH (21:07)
[2016-09-13 22:00] VITALS: BP 145/89
[2016-09-14] MEDS: IPRATROPIUM 0.5MG/ALBUTEROL 2.5MG INH SOL UD 3ML (DUONEB)(J7620) NEB SCH ×4 (01:21→20:00)
[2016-09-14 06:00] VITALS: BP 143/77
[2016-09-14 06:33] LABS: BASO # 0.1 K/mm3 (0.0-0.2); BASO % 0.8 % (0.0-1.0); EOS # 0.1 K/mm3 (0.0-0.50); EOS % 1.6 % (0.0-3.0); LARGE UNSTAINED CELL # 0.3 K/mm3 (0.0-0.4); LARGE UNSTAINED CELL % 3.2 % (0.0-4.0); LYMPH # 2.4 K/mm3 (1.5-4.5); LYMPH % 27.5 % (24.0-44.0); MEAN CORPUSCULAR HEMOGLOBIN 27.9 pg (27.0-33.0); MEAN CORPUSCULAR HGB CONC 31.8 g/dl (32.0-36.5); MEAN CORPUSCULAR VOLUME 87.7 fl (80.0-96.0); MONO # 0.5 K/mm3 (0.0-0.8); MONO % 6.2 % (0.0-5.0); NEUTROPHILS # 4.8 K/mm3 (1.8-7.7); NEUTROPHILS % 60.8 % (36.0-66.0); PLATELET COUNT, AUTOMATED 220 k/mm3 (150-450); RED CELL DISTRIBUTION WIDTH 13.9 % (11.5-14.5); WHITE BLOOD COUNT 7.8 K/mm3 (4.0-10.0)
[2016-09-14 06:38] LABS: ANION GAP 6 MEQ/L (8-16); BLOOD UREA NITROGEN 18 MG/DL (7-18); CALCIUM LEVEL 8.6 MG/DL (8.5-10.1); CARBON DIOXIDE LEVEL 34 MEQ/L (21-32); CHLORIDE LEVEL 101 MEQ/L (98-107); CREATININE FOR GFR 0.88 MG/DL (0.55-1.02); GLOMERULAR FILTRATION RATE > 60.0 (>51); GLUCOSE, FASTING 77 MG/DL (70-105); POTASSIUM SERUM 3.7 MEQ/L (3.5-5.1); SODIUM LEVEL 141 MEQ/L (136-145)
[2016-09-14] MEDS: FORMOTEROL FUMARATE 20 MCG/2 ML INHALATION SOLUTION (PERFOROMIST) INH SCH ×2 (07:51→20:15)
[2016-09-14] MEDS: BUDESONIDE 0.5 MG/2 ML INHALATION SUSPENSION INH SCH ×2 (07:51→20:15)
[2016-09-14] MEDS: NICOTINE 14 MG/24 HR TRANSDERMAL TD SCH (08:29)
[2016-09-14] MEDS: predniSONE 50 MG TAB PO SCH (08:30)
[2016-09-14] MEDS: ASPIRIN 81 MG ENTERIC TAB PO SCH (08:30)
[2016-09-14] MEDS: OMEPRAZOLE 20 MG CAP PO SCH ×2 (08:30→22:23)
[2016-09-14] MEDS: FUROSEMIDE 40 MG TAB PO SCH (08:30)
[2016-09-14] MEDS: OSELTAMIVIR PHOSPHATE 75 MG CAP (TAMIFLU) PO SCH (08:30)
[2016-09-14] MEDS: SENOKOT S TAB PO SCH ×2 (08:30→22:23)
[2016-09-14] MEDS: ENOXAPARIN 40 MG/0.4 ML SYRINGE (J1650) SC SCH (09:00)
[2016-09-14] MEDS ORDERED: PRED10TA PO (10:00)
[2016-09-14] MEDS ORDERED: NICO14PA TD (10:00)
[2016-09-14 14:00] VITALS: BP 140/75
--- NOTE | 2016-09-14 16:39 | IPN ---
DATE: 09/14/2016 Ms. Schilling is feeling well today. She says she would like to go home. Breathing is easier. She has been out of bed using 2 liters of oxygen, which is her home regimen. Unfortunately, she went on to pass bright red blood per rectum and will be maintained in the hospital today. Temperature is 96.5, pulse 72, respiratory rate 17, blood pressure 142/77, 94% on 2 liters. Intake and output notable for a negative fluid balance of -290. Two bowel movements yesterday. She is awake, appropriately interactive, pleasantly conversant. Breathing is symmetrical and rested. Upper airway sounds are noted. No accessory muscle use. Speaks in complete sentences. Heart: Regular rate and rhythm. Abdomen: Soft, doughy, active. Bowel sounds nontender. No significant lower extremity edema. White count 7.8, hemoglobin 15, BUN 18, creatinine 0.88. ASSESSMENT: This is a 60-year-old with acute on chronic respiratory failure with hypoxia, now at baseline. PLAN: 1. Infectious disease. The patient has influenza B and was being treated for pneumonia. Antibiotics are discontinued at this point. Tamiflu, of course, has been completed. Prednisone is being tapered for her chronic obstructive pulmonary disease (COPD) exacerbation. 2. The patient has a gastrointestinal (GI) bleed, which is presumably lower. We have held her aspirin, and I have decreased her steroids. Will monitor serial hemoglobin and hematocrit and type and cross and obtain informed consent for blood transfusion as necessary. 3. The patient has obstructive sleep apnea, using home continuous positive airway pressure (CPAP). 4. The patient has gastroesophageal reflux disease (GERD). 5. The patient has hypertension. 6. The patient has obesity. 7. The patient has had difficulty with smoking cessation, and we did discuss smoking cessation at length at bedside. She would like to continue with a nicotine patch at home and was quite confident in her ability to quit at this time. Her longest period without smoking in the past has been just over a year. Edited 09/14/2016 [facility]
[2016-09-14 17:41] LABS: MEAN CORPUSCULAR HEMOGLOBIN 28.4 pg (27.0-33.0); MEAN CORPUSCULAR HGB CONC 32.2 g/dl (32.0-36.5); MEAN CORPUSCULAR VOLUME 88.3 fl (80.0-96.0); WHITE BLOOD COUNT 8.3 K/mm3 (4.0-10.0)
[2016-09-14 22:00] VITALS: BP 148/80
[2016-09-14] MEDS: ACETAMINOPHEN TAB 650MG DOSE (2X325MG) PO PRN (22:32)
[2016-09-14 23:16] LABS: MEAN CORPUSCULAR HEMOGLOBIN 28.3 pg (27.0-33.0); MEAN CORPUSCULAR HGB CONC 32.5 g/dl (32.0-36.5); MEAN CORPUSCULAR VOLUME 87.2 fl (80.0-96.0); WHITE BLOOD COUNT 8.8 K/mm3 (4.0-10.0)
[2016-09-15] MEDS: IPRATROPIUM 0.5MG/ALBUTEROL 2.5MG INH SOL UD 3ML (DUONEB)(J7620) NEB SCH ×4 (02:00→20:00)
[2016-09-15 06:00] VITALS: BP 138/67
[2016-09-15 06:58] LABS: BASO # 0.1 K/mm3 (0.0-0.2); BASO % 1.1 % (0.0-1.0); EOS # 0.2 K/mm3 (0.0-0.50); EOS % 2.6 % (0.0-3.0); LARGE UNSTAINED CELL # 0.4 K/mm3 (0.0-0.4); LARGE UNSTAINED CELL % 4.3 % (0.0-4.0); LYMPH # 3.1 K/mm3 (1.5-4.5); LYMPH % 29.1 % (24.0-44.0); MEAN CORPUSCULAR HEMOGLOBIN 28.2 pg (27.0-33.0); MEAN CORPUSCULAR VOLUME 88.1 fl (80.0-96.0); MONO # 0.5 K/mm3 (0.0-0.8); MONO % 4.8 % (0.0-5.0); NEUTROPHILS # 5.4 K/mm3 (1.8-7.7); NEUTROPHILS % 58.1 % (36.0-66.0); PLATELET COUNT, AUTOMATED 236 k/mm3 (150-450); WHITE BLOOD COUNT 9.2 K/mm3 (4.0-10.0)
[2016-09-15 07:21] LABS: ANION GAP 5 MEQ/L (8-16); BLOOD UREA NITROGEN 20 MG/DL (7-18); CALCIUM LEVEL 8.7 MG/DL (8.5-10.1); CARBON DIOXIDE LEVEL 33 MEQ/L (21-32); CHLORIDE LEVEL 104 MEQ/L (98-107); CREATININE FOR GFR 0.96 MG/DL (0.55-1.02); GLOMERULAR FILTRATION RATE > 60.0 (>51); GLUCOSE, FASTING 103 MG/DL (70-105); POTASSIUM SERUM 3.7 MEQ/L (3.5-5.1); SODIUM LEVEL 142 MEQ/L (136-145)
[2016-09-15] MEDS: BUDESONIDE 0.5 MG/2 ML INHALATION SUSPENSION INH SCH ×2 (07:42→20:37)
[2016-09-15] MEDS: FORMOTEROL FUMARATE 20 MCG/2 ML INHALATION SOLUTION (PERFOROMIST) INH SCH ×2 (07:42→20:37)
[2016-09-15] MEDS: ENOXAPARIN 40 MG/0.4 ML SYRINGE (J1650) SC SCH ×2 (09:00→10:08)
[2016-09-15] MEDS: NICOTINE 14 MG/24 HR TRANSDERMAL TD SCH (10:07)
[2016-09-15] MEDS: predniSONE 10 MG TAB PO SCH (10:07)
[2016-09-15] MEDS: SENOKOT S TAB PO SCH ×2 (10:07→20:15)
[2016-09-15] MEDS: FUROSEMIDE 40 MG TAB PO SCH (10:07)
[2016-09-15] MEDS: OMEPRAZOLE 20 MG CAP PO SCH ×2 (10:07→20:15)
[2016-09-15] MEDS ORDERED: ISOVUE-370 76% 100ML VIAL (Q9967) As Ordered ONE (11:39)
--- NOTE | 2016-09-15 13:24 | IPN ---
DATE: 09/15/2016 Ms. Schilling is feeling well today. She is complaining of some left lower quadrant pain. She has not passed any further blood. Unfortunately, yesterday afternoon, she did pass blood with a bowel movement. She has not had any bloody bowel movements or any bowel movements for that matter since that time. Temperature 98.4, pulse 77, respiratory rate 16, blood pressure 138/67 and 93% on 2 liters. Ins and outs notable for a positive fluid balance of 175. No bowel movements. Body mass index 34.7. She is awake, appropriately interactive, and pleasantly conversant. Breathing is symmetrical. I:E ratio is 1:4. No accessory muscle use. Speaking in complete sentences. Heart is distant sounding, normal S1, S2. Abdomen soft, doughy, mild left lower quadrant tenderness. Without rebound or guarding. White cell count 9.2, hemoglobin 14.9 down from a high of 15.8, BUN 20, creatinine 0.96. CT of abdomen and pelvis is pending. ASSESSMENT: This is a 60-year-old with acute on chronic respiratory failure with hypoxia now at baseline with lower gastrointestinal (GI) bleeding. PLAN: 1. Infectious disease. The patient has had influenza B and pneumonia. Antibiotics and Tamiflu are off. Prednisone is being tapered. She has improved from a respiratory standpoint. 2. The patient has a lower GI bleed. Aspirin is held. The results of the CT scan are pending. Steroids have been decreased. Hemoglobin and hematocrit (H and H) is relatively stable. 3. Patient has obstructive sleep apnea, on CPAP. 4. Patient has gastroesophageal reflux disease (GERD). 5. Patient has hypertension. 6. Patient has obesity. 7. Patient is pursuing smoking cessation. 8. Discharge criteria will be a normal CT scan and a normal bowel movement. Should bleeding continue, the patient may need further workup.
--- NOTE | 2016-09-15 13:41 | REP ---
CT ABDOMEN PELVIS WITH IV CONTRAST: 09/15/2016 CLINICAL HISTORY: Left lower quadrant pain and lower GI bleed. COMPARISON: Noncontrast CT 09/10/2016. TECHNIQUE: Bolus of 100 mL Isovue 370 given with scanning through the abdomen pelvis followed by coronal and sagittal reconstructions. CT ABDOMEN: Some mild cylindrical bronchiectatic change in both lower lung zones, right more than left. No effusion or infiltrate. Heart is not enlarged. No pericardial thickening or effusion. No definite hiatal hernia. No hepatosplenomegaly, focal hepatic mass or intrahepatic biliary dilatation. The aorta has calcifications and is without aneurysm or dissection. No periaortic pr other retroperitoneal pathologic sized lymphadenopathy. Adrenal glands grossly intact. Gallbladder absent with clips in the fossa. Pancreas shows no mass, ductal dilatation or inflammatory change about the pancreas, small bowel loops and colon grossly intact. Abdominal portion of the colon shows stool and gas within and without signs of colitis, diverticulitis, stricture or mass. Small bowel loops in the upper abdomen unremarkable. No infiltration or edema in the mesentery nor adenopathy. There is no free air in the abdomen or pelvis on lung window review of all CT slice levels. There are some scattered surgical clips in the right lower quadrant. There is some minor degenerative disc changes at multiple levels in the lumbar and lower thoracic spine without compression deformity of destructive lesions, posterior elements, spondylolysis or spondylolisthesis. Visualized ribs intact. CT PELVIS: The bilateral hips, acetabuli, iliac wings, SI joints and sacral ala without acute findings. Symphysis pubis unremarkable. Kidneys show no mass, stone, cyst, hydronephrosis or hydroureter. There is a small cyst interpolar cortex posteriorly on the right. No hydronephrosis, renal stone, hydroureter or ureteral stone on either side. The bladder shows no wall thickening, stone or mass. There is extensive diverticulosis of the distal left colon and sigmoid without definite diverticulitis or colitis, stricture or mass. Iliac and femoral arteries with calcification but no mass. No ventral or inguinal hernia. No pelvic lymphadenopathy or free fluid. IMPRESSION: 1. There is no CT evidence of diverticulitis, colitis, stricture or mass. There is extensive diverticulosis distal left colon and sigmoid. 2. Surgical clips in the right upper quadrant from prior cholecystectomy with the liver, spleen, pancreas and adrenal glands normal. 3. Cortical cysts right kidney interpolar region. There is also a cyst lower pole left kidney, benign. 4. No colitis, diverticulitis, stricture or mass in the colon with heaviest diverticulosis sigmoid and distal left colon. 5. Bones intact. No acute finding. Signed by Jim Padgett MD 09/15/2016 03:31 P
[2016-09-15 14:00] VITALS: BP 136/73
[2016-09-15 20:00] VITALS: BP 116/72
[2016-09-15] MEDS: MAALOX 30 ML SUSP *UDC PO PRN (20:15)
[2016-09-16] MEDS: IPRATROPIUM 0.5MG/ALBUTEROL 2.5MG INH SOL UD 3ML (DUONEB)(J7620) NEB SCH ×2 (02:00→08:00)
[2016-09-16 06:00] VITALS: BP 151/78
[2016-09-16] MEDS ORDERED: PRED10TA PO (08:06)
[2016-09-16] MEDS: FORMOTEROL FUMARATE 20 MCG/2 ML INHALATION SOLUTION (PERFOROMIST) INH SCH (08:25)
[2016-09-16] MEDS: BUDESONIDE 0.5 MG/2 ML INHALATION SUSPENSION INH SCH (08:25)
[2016-09-16] MEDS: predniSONE 10 MG TAB PO SCH (09:53)
[2016-09-16] MEDS: NICOTINE 14 MG/24 HR TRANSDERMAL TD SCH (09:53)
[2016-09-16] MEDS: OMEPRAZOLE 20 MG CAP PO SCH (09:53)
[2016-09-16] MEDS: SENOKOT S TAB PO SCH (09:53)
[2016-09-16] MEDS: FUROSEMIDE 40 MG TAB PO SCH (09:53)
[2016-09-16] MEDS: ENOXAPARIN 40 MG/0.4 ML SYRINGE (J1650) SC SCH (09:54)
--- NOTE | 2016-09-17 05:46 | DSES ---
DATE OF ADMISSION: 09/09/2016 DATE OF DISCHARGE: 09/16/2016 DISCHARGE DIAGNOSES: Influenza B. Community acquired pneumonia. Lower gastrointestinal (GI) bleed likely from diverticulosis. Obstructive sleep apnea on CPAP. Gastroesophageal reflux disease (GERD). Hypertension. Obesity. Tobacco use now pursuing smoking cessation. Gastroparesis. SUMMARY OF HOSPITALIZATION: This is a 60-year-old patient of Dr. Hughes who presented with increasing cough and shortness of breath. Was found to have influenza B and thus suspected community acquired pneumonia. Had lactic acidosis from increased work of breathing. Improved steadily. Was planning to be discharged and unfortunately developed bright red blood per rectum with a bowel movement. CT scan of the abdomen was done which showed diverticulosis of the distal left colon and sigmoid without diverticulitis. She was monitored clinically. Her aspirin was stopped. Eventually had a normal bowel movement. [place] ready to be discharged. On day of discharge, temperature 98.6, pulse 92, respiratory rate 20, blood pressure 151/78, 97% on 2 liters nasal cannula. She is awake, appropriate, pleasant, easily conversant. Still gets somewhat short of breath with motion but does feel ready to go home. Heart is distant sounding, normal S1, S2. Abdomen: Soft, distended, nontender. During the course of her stay, she did have some left lower quadrant tenderness around the time of the bleeding but again, that has resolved. White cell count 9.2, creatinine 0.96. DISCHARGE INSTRUCTIONS: Patient is to followup with Dr. Hughes within 1 week of discharge. Please note patient may benefit from an outpatient colonoscopy. The last colonoscopy appears to be remote. I did discuss this in general with Dr. Hughes prior to the patient's discharge. Please note due to [employer] down time, I am unable to read back the discharge medication list which is actually available in [employer] for future review.
== END 2016-09-16 11:15 | disposition home health service (06) | DRG 193 ==
LOC: EDBD 17:15 → M ED 18:14 → M ED INP 19:31 → M MSPAV 20:12 → OBSVTOIN 09-09 11:25 → M MSPAV 09-13 09:29 → M ED INP 09-13 19:49
PROVIDERS: ADMIT Internal Medicine Nephrology; ATTEND Internal Medicine
DX: J10.00 Influenza due to other identified influenza virus with unspecified type of pneumonia (principal); J96.21 Acute and chronic respiratory failure with hypoxia; K57.91 Diverticulosis of intestine, part unspecified, without perforation or abscess with bleeding; J44.1 Chronic obstructive pulmonary disease with (acute) exacerbation; E87.2 Acidosis; G47.33 Obstructive sleep apnea (adult) (pediatric); K21.9 Gastro-esophageal reflux disease without esophagitis; H66.91 Otitis media, unspecified, right ear; I10 Essential (primary) hypertension; E66.9 Obesity, unspecified; K31.84 Gastroparesis; Z88.0 Allergy status to penicillin; Z88.1 Allergy status to other antibiotic agents; Z88.2 Allergy status to sulfonamides; Z88.8 Allergy status to other drugs, medicaments and biological substances; Z79.82 Long term (current) 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; Z79.899 Other long term (current) drug therapy; Z68.35 Body mass index [BMI] 35.0-35.9, adult; Z99.81 Dependence on supplemental oxygen

== ENCOUNTER 2017-01-21 10:35 | Inpatient (IN) | payer MEDICARE, MEDICAID ==
[~2017-01-21] VITALS: Ht 165.1 cm; Wt 110.3 kg
[~2017-01-21 10:35] MED LIST changes: +ASPI1TAB PO; +BACITAB PO; -BACITAB3 PO; +DOCU100C16 PO; +GUAISYP4 PO; -MUCI600T34 PO; +MUCI600T37 PO; +NICO14PA TD; +UNRESOLVED CLARIFICATION ENTRY XX SCH
[2017-01-21] MEDS ORDERED: ASPI81TA85 PO (10:45)
[2017-01-21] MEDS ORDERED: IPRATROPIUM 0.5MG/ALBUTEROL 2.5MG INH SOL UD 3ML (DUONEB)(J7620) NEB ONE ×2 (11:00)
[2017-01-21] MEDS ORDERED: FUROSEMIDE 40 MG/4 ML VIAL (J1940) IV ONE (11:00)
[2017-01-21] MEDS ORDERED: methylPREDNISolone INJ 125 MG/2 ML VIAL (J2930) IV ONE (11:00)
[2017-01-21 11:17] LABS: BASO # 0.1 K/mm3 (0.0-0.2); BASO % 0.6 % (0.0-1.0); EOS # 0.3 K/mm3 (0.0-0.50); EOS % 2.1 % (0.0-3.0); LARGE UNSTAINED CELL # 0.1 K/mm3 (0.0-0.4); LARGE UNSTAINED CELL % 1.1 % (0.0-4.0); LYMPH # 1.8 K/mm3 (1.5-4.5); LYMPH % 12.7 % (24.0-44.0); MEAN CORPUSCULAR HEMOGLOBIN 28.2 pg (27.0-33.0); MEAN CORPUSCULAR HGB CONC 32.5 g/dl (32.0-36.5); MEAN CORPUSCULAR VOLUME 86.8 fl (80.0-96.0); MONO # 0.3 K/mm3 (0.0-0.8); MONO % 2.5 % (0.0-5.0); NEUTROPHILS # 10.6 K/mm3 (1.8-7.7); NEUTROPHILS % 81.1 % (36.0-66.0); PLATELET COUNT, AUTOMATED 270 k/mm3 (150-450); RED CELL DISTRIBUTION WIDTH 14.4 % (11.5-14.5); WHITE BLOOD COUNT 13.1 K/mm3 (4.0-10.0)
[2017-01-21 11:39] LABS: ALBUMIN 3.8 GM/DL (3.2-5.2); ALBUMIN/GLOBULIN RATIO 1.09 (1.00-1.93); ALKALINE PHOSPHATASE 68 U/L (45-117); ALT/SGPT 25 U/L (12-78); ANION GAP 8 MEQ/L (8-16); AST/SGOT 10 U/L (15-37); BILIRUBIN,DIRECT 0.1 MG/DL (0.0-0.2); BILIRUBIN,TOTAL 0.6 MG/DL (0.2-1.0); BLOOD UREA NITROGEN 8 MG/DL (7-18); CALCIUM LEVEL 9.4 MG/DL (8.8-10.2); CARBON DIOXIDE LEVEL 26 MEQ/L (21-32); CHLORIDE LEVEL 110 MEQ/L (98-107); GLOMERULAR FILTRATION RATE > 60.0 (>45); GLUCOSE, FASTING 89 MG/DL (80-110); POTASSIUM SERUM 4.6 MEQ/L (3.5-5.1); SODIUM LEVEL 144 MEQ/L (136-145); TOTAL PROTEIN 7.3 GM/DL (6.4-8.2)
--- NOTE | 2017-01-21 11:53 | REP ---
Portable chest, 11:23 a.m., single AP view, patient sitting: Comparison is 09/11/2016. There is a right lower lobe infiltrate as a change from the prior study. No pleural effusion is identified. Left lung is clear. Cardiac size is normal. The dariel, mediastinum, and bony thorax are unremarkable. Impression: Right lower lobe infiltrate. Signed by Herminio Batista MD 01/21/2017 11:45 A
[2017-01-21] MEDS ORDERED: DOXYCYCLINE HYCLATE 100 MG in D5W MINI-BAG PLUS 100 ML IV ONE (13:15)
[2017-01-21] MEDS ORDERED: ACETAMINOPHEN TAB 650MG DOSE (2X325MG) PO PRN (14:00)
[2017-01-21] MEDS ORDERED: ALBUTEROL SULFATE 2.5 MG/0.5 ML INH NEB SOLN INH PRN (14:00)
[2017-01-21] MEDS ORDERED: ONDANSETRON 4MG/2ML VIAL (J2405) IV PRN (14:00)
[2017-01-21 14:01] LABS: ABG BASE EXCESS 0.9 (-2.0-2.0); ABG HCO3 25.4 MEQ/L (22.0-26.0); ABG PARTIAL PRESSURE CO2 40.4 mmHg (35.0-45.0); ABG PARTIAL PRESSURE O2 56.8 mmHg (75.0-100.0); ABG TOTAL CO2 26.7 MEQ/L (23.0-31.0); ABG pH (ARTERIAL) 7.417 UNITS (7.350-7.450)
[2017-01-21] MEDS ORDERED: PROAAER10 INH (14:40)
[2017-01-21] MEDS ORDERED: RANI300T PO (14:40)
[2017-01-21] MEDS ORDERED: CORT1OIN2 TOP (14:40)
[2017-01-21] MEDS ORDERED: TRAM50TA2 PO (14:40)
[2017-01-21] MEDS ORDERED: LOPE2CAP PO (14:40)
[2017-01-21] MEDS ORDERED: DOCUSATE SODIUM 100 MG CAP PO PRN (15:15)
--- NOTE | 2017-01-21 15:31 | HPE ---
DATE OF ADMISSION: 08/21/2016 This is a patient of Dr. Hughes. CHIEF COMPLAINT: Trouble breathing. SUMMARY OF PRESENTATION: This is a 61-year-old who has been living in an apartment complex with a lot of construction work going on. There has been a lot of dust in the air, and she thinks that she accidentally breathed in a lot of dust in the last week. She felt well 2 days ago, then became congested. Her breath became short, especially with exertion. She had diaphoresis. Sputum changed to thicker white, and she began to feel all tired out. She is not describing chest pain. No orthopnea. No paroxysmal nocturnal dyspnea. PAST SURGICAL HISTORY: Notable for: 1. Hysterectomy. 2. Appendectomy. 3. Brain surgery as a child. 4. Cholecystectomy. FAMILY HISTORY: Unremarkable. PAST MEDICAL HISTORY: Notable for: 1. Chronic obstructive pulmonary disease (COPD). 2. Obstructive sleep apnea (JIGNESH), on continuous positive airway pressure (CPAP), but she has not used in the last month. 3. Gastroesophageal reflux disease (GERD). 4. Hypertension. 5. Gastroparesis. 6. Chronic hypoxic respiratory failure on 2 liters of oxygen at home. 7. Obesity. SOCIAL HISTORY: She has a scooter for long-distance movement. She does continue to smoke. She denied significant alcohol use. REVIEW OF SYSTEMS: Cough with white sputum production. No orthopnea. No paroxysmal nocturnal dyspnea. Obstructive sleep apnea. She does have some chronic numbness in her legs. She has a history of hiatal hernia. Otherwise unremarkable. PHYSICAL EXAMINATION: Temperature 97.7, pulse 93, blood pressure 123/74, respiratory rate 18, 89% on what looks like room air in the emergency department. She is awake, pleasantly conversant. Eating a turkey sandwich upon my arrival. Head is normocephalic. Sinus nontender. Pupils equally round and reactive, anicteric. Nasal septum is midline. Mucous membranes moist. She is edentulous. Neck is supple, thick. No obvious elevation in jugular venous pulse (JVP). Heart is distant sounding. Normal S1, S2. Radial pulses 2+. Capillary refill is less than 2 seconds. Breathing is symmetrical. Inspiratory to expiratory (I-to-E) ratio is 1:4. Scattered polyphonic wheezes throughout both lung nava. No accessory muscle use. Speaking in complete sentences. No costovertebral angle (CVA) tenderness. No sacral edema. Abdomen soft, doughy, nontender. No lower extremity edema. She has normal mood and affect. Labs available for me to review include the following: Sodium 144, potassium 4.6, chloride 100, bicarbonate 26, BUN 8, creatinine 1, lactic acid 1.6, albumin 3.8, blood glucose 7.41, 40, 56, 25. White cell count 13.1, hemoglobin 15.8, and platelets 270. Blood cultures pending. Sputum culture and respiratory panel ordered. Chest x-ray is consistent with right lower lobe infiltrate. ASSESSMENT: This is a 61-year-old with community-acquired pneumonia in the setting of chronic hypoxic respiratory failure. PLAN: 1. Respiratory. Patient is treated for community acquired pneumonia. Has previously received ceftriaxone. Did receive a dose of doxycycline in the emergency room (ER) that will be switched to Zithromax. We will obtain a respiratory panel. This is most likely brought on by an environmental insult related to dust in the apartment. Will continue treating her for her chronic hypoxic respiratory failure. She does also have history of obstructive sleep apnea, noncompliant with CPAP. 2. Patient has history GERD. 3. Patient has history of hypertension. Blood pressure is reasonably controlled for the current setting. 4. Patient has history of gastroparesis. 5. Deep vein thrombosis (DVT) prophylaxis is ordered.
[2017-01-21 15:35] VITALS: BP 131/74
[2017-01-21] MEDS: IPRATROPIUM 0.5MG/ALBUTEROL 2.5MG INH SOL UD 3ML (DUONEB)(J7620) NEB SCH ×3 (16:00→23:21)
[2017-01-21] MEDS: FUROSEMIDE 40 MG TAB PO SCH ×2 (18:13→18:23)
[2017-01-21] MEDS: FAMOTIDINE 20 MG TAB PO SCH (18:14)
[2017-01-21] MEDS: ENOXAPARIN 40 MG/0.4 ML SYRINGE (J1650) SC SCH (18:14)
[2017-01-21] MEDS: methylPREDNISolone INJ 125 MG/2 ML VIAL (J2930) IV SCH (18:15)
[2017-01-21] MEDS: cefTRIAXone SOD 2 GM in D5W MINI-BAG PLUS 50 ML IV SCH (18:15)
[2017-01-21] MEDS ORDERED: SLF 3 ML SYR IV PRN (18:30)
[2017-01-21] MEDS: ASPIRIN 81 MG ENTERIC TAB PO SCH (20:48)
[2017-01-21] MEDS: AZITHROMYCIN INJ 500 MG, VIAL MATE ADAPTER 1 EACH in D5W 250 ML IV SCH (20:48)
[2017-01-21 21:21] VITALS: BP 152/77
[2017-01-21] MEDS: SLF 3 ML SYR IV SCH (21:57)
[2017-01-22] VITALS (7 sets, daily range): BP systolic 105–140; BP diastolic 61–84
[2017-01-22] MEDS: methylPREDNISolone INJ 125 MG/2 ML VIAL (J2930) IV SCH ×5 (00:25→23:53)
[2017-01-22] MEDS: IPRATROPIUM 0.5MG/ALBUTEROL 2.5MG INH SOL UD 3ML (DUONEB)(J7620) NEB SCH ×6 (05:12→23:21)
[2017-01-22] MEDS: SLF 3 ML SYR IV SCH ×3 (05:31→22:00)
[2017-01-22 05:41] LABS: MEAN CORPUSCULAR HEMOGLOBIN 29.3 pg (27.0-33.0); MEAN CORPUSCULAR HGB CONC 32.9 g/dl (32.0-36.5); MEAN CORPUSCULAR VOLUME 88.9 fl (80.0-96.0); RED CELL DISTRIBUTION WIDTH 14.1 % (11.5-14.5); WHITE BLOOD COUNT 13.5 K/mm3 (4.0-10.0)
[2017-01-22 05:45] LABS: CALCIUM LEVEL 9.4 MG/DL (8.8-10.2); CREATININE FOR GFR 1.25 MG/DL (0.55-1.02); GLOMERULAR FILTRATION RATE 46.5 (>45); MAGNESIUM LEVEL 2.4 MG/DL (1.8-2.4); POTASSIUM SERUM 4.6 MEQ/L (3.5-5.1)
--- NOTE | 2017-01-22 08:08 | ECGEPIP ---
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
[2017-01-22] MEDS: FAMOTIDINE 20 MG TAB PO SCH (08:39)
[2017-01-22] MEDS: ENOXAPARIN 40 MG/0.4 ML SYRINGE (J1650) SC SCH (08:39)
[2017-01-22] MEDS: FUROSEMIDE 40 MG TAB PO SCH (08:40)
[2017-01-22] MEDS: traMADol 50 MG TAB PO PRN ×2 (08:42→18:23)
[2017-01-22] MEDS: guaiFENesin SYRUP 200 MG/10 ML UDC PO PRN ×3 (11:21→21:11)
[2017-01-22] MEDS: NICOTINE 21MG/24HR 1 EA TRANSDERMAL TD SCH (11:22)
--- NOTE | 2017-01-22 17:08 | IPN ---
DATE: 01/22/2017 SUBJECTIVE: Patient seen and examined in the room today. Patient still experiencing significant shortness of breath. Patient also noted to have increased cough. No change in sputum color. The sputum color is white. It is about her baseline. Per patient, patient continues to smoke. Patient has been smoking two packs day before the hospitalization. She is requesting a nicotine patch. OBJECTIVE: VITAL SIGNS: Temperature 97.4, pulse is 105, respirations 22, blood pressure is 140/82, pulse oximetry 93% with 2 liters nasal cannula. GENERAL: Mild distress secondary to shortness of breath. Alert and oriented times three. Morbidly obese. HEENT: Normocephalic, atraumatic. Extraocular motor grossly intact. CARDIOVASCULAR: Positive S1, S2, regular rate. LUNGS: Positive significant wheezes throughout. I cannot appreciate any significant crackles. Positive accessory muscle use. ABDOMEN: Soft, nontender, nondistended. Bowel sounds present. EXTREMITIES: No edema. No sign of cyanosis. LABORATORY DATA: WBC is 13.5, hemoglobin 16.2, hematocrit 49, platelet count is 250. Sodium is 144, potassium 4.6, chloride is 100, carbon dioxide 24, BUN 15, creatinine 1.25, GFR is 46.5, fasting glucose 198, calcium 9.4, magnesium 2.4. Microbiology: Respiratory panel is positive for human rhinovirus/enterovirus. ASSESSMENT AND PLAN: 1. Human rhinovirus and enterovirus infections. Continue medical management. Patient with supportive oxygen. 2. Chronic obstructive pulmonary disease (COPD) exacerbation secondary to human rhinovirus/enterovirus infections. Patient is on Rocephin and azithromycin. Patient is also on intravenous (IV) Solu-Medrol. Patient is continued on breathing treatments. Chronically patient is on 2 liters oxygen at home. 3. Tobacco abuse. Per patient, patient has been smoking two packs daily, and patient has been smoking for more than 40 years. Patient will have a nicotine patch. 4. History of obstructive sleep apnea (JIGNESH). Patient instructed to ask a family member or friend to bring her continuous positive airway pressure (CPAP). 5. Gastroesophageal reflux disease. Patient is taking Pepcid. 6. Hypertension. Patient used to take Lasix at home; however, currently due to acute kidney injury, Lasix will be on hold at this moment. 7. History of gastroparesis. 8. Morbid obesity. 9. Acute kidney injury, most likely secondary to significant fluid loss from rapid breathing and poor oral intake due to acute illness. Lasix will be discontinued. Will continue to monitor patient. If patient requires more fluid support, we will consider normal saline. 10. Deep vein thrombosis (DVT) prophylaxis. Patient is on Lovenox.
[2017-01-22] MEDS: cefTRIAXone SOD 2 GM in D5W MINI-BAG PLUS 50 ML IV SCH (18:22)
[2017-01-22] MEDS: AZITHROMYCIN INJ 500 MG, VIAL MATE ADAPTER 1 EACH in D5W 250 ML IV SCH (20:20)
[2017-01-22] MEDS: ASPIRIN 81 MG ENTERIC TAB PO SCH (21:09)
[2017-01-23] MEDS: IPRATROPIUM 0.5MG/ALBUTEROL 2.5MG INH SOL UD 3ML (DUONEB)(J7620) NEB SCH ×6 (03:13→23:08)
[2017-01-23 05:39] LABS: MEAN CORPUSCULAR HEMOGLOBIN 28.9 pg (27.0-33.0); MEAN CORPUSCULAR HGB CONC 32.7 g/dl (32.0-36.5); MEAN CORPUSCULAR VOLUME 88.4 fl (80.0-96.0); RED CELL DISTRIBUTION WIDTH 14.4 % (11.5-14.5); WHITE BLOOD COUNT 17.8 K/mm3 (4.0-10.0)
[2017-01-23] MEDS: SLF 3 ML SYR IV SCH ×3 (05:40→21:09)
[2017-01-23] MEDS: methylPREDNISolone INJ 125 MG/2 ML VIAL (J2930) IV SCH ×3 (05:41→18:37)
[2017-01-23 05:55] VITALS: BP 133/82
[2017-01-23 06:03] LABS: CALCIUM LEVEL 9.7 MG/DL (8.8-10.2); CREATININE FOR GFR 1.21 MG/DL (0.55-1.02); GLOMERULAR FILTRATION RATE 48.3 (>45); MAGNESIUM LEVEL 2.6 MG/DL (1.8-2.4); POTASSIUM SERUM 4.8 MEQ/L (3.5-5.1)
[2017-01-23 08:00] VITALS: BP 106/63
[2017-01-23] MEDS: NICOTINE 21MG/24HR 1 EA TRANSDERMAL TD SCH (08:17)
[2017-01-23] MEDS: ENOXAPARIN 40 MG/0.4 ML SYRINGE (J1650) SC SCH (08:18)
[2017-01-23] MEDS: guaiFENesin SYRUP 200 MG/10 ML UDC PO PRN ×2 (08:18→21:06)
[2017-01-23] MEDS: FAMOTIDINE 20 MG TAB PO SCH (08:18)
[2017-01-23] MEDS: traMADol 50 MG TAB PO PRN ×2 (08:19→18:38)
[2017-01-23 11:35] VITALS: BP 141/80
[2017-01-23 15:59] VITALS: BP 154/82
--- NOTE | 2017-01-23 17:24 | IPN ---
DATE: 01/23/2017 SUBJECTIVE: The patient is seen and examined in the room today. The patient continues to have significant cough but she stated Robitussin has been helping her to control the frequency and severity of the cough. She feels she is improving. The patient continued to smoke before the hospitalization. According to the staff, the patient also has been around with people who smoke continuously. The patient does have continuous positive airway pressure (CPAP), but last use was approximately six months ago. OBJECTIVE: VITAL SIGNS: Temperature is 97.9, pulse 113, respirations 20, blood pressure 106/63, pulse oximetry 98% with three liters nasal cannula. GENERAL: Mild to moderate distress secondary to difficulty breathing and frequent cough. Alert and oriented times three. HEENT: Normocephalic, atraumatic. Extraocular motor grossly intact. CARDIOVASCULAR: Positive S1, S2. Regular rate. LUNGS: Positive significant wheezes throughout, but I cannot appreciate any significant crackles. Positive accessory muscle use. ABDOMEN: Soft, nontender, nondistended. Bowel sounds present. EXTREMITIES: No edema. No cyanosis. LABORATORY DATA: WBC is 17.8, hemoglobin 14.7, hematocrit 44.8, platelet count 264. Sodium 144, potassium 4.8, chloride 109, carbon dioxide 27, BUN 22, creatinine 1.21, GFR 48.3, fasting glucose 258, calcium 9.7, magnesium 2.6. Sputum culture showed normal ben. ASSESSMENT AND PLAN: 1. Chronic obstructive pulmonary disease (COPD) exacerbation from human rhinovirus/enterovirus. The patient continues the IV steroids. Continue with breathing treatment. Patient on Rocephin and azithromycin, and patient also given Robitussin to control the severity and frequency of the cough. 2. Human rhinovirus and enterovirus. The patient is on precautions. Continue conservative medical management and maintain the oxygen saturation in the satisfactory range. 3. Obstructive sleep apnea (JIGNESH). Based on the story, the patient has not been compliant with the CPAP. The patient has a CPAP for a long duration, but the last use was approximately six months ago. Respiratory therapist has been very helpful to restart the machine and start the patient on a trial of CPAP. The patient will start using her CPAP tonight. 4. Gastroesophageal reflux disease, on Pepcid. 5. Hypertension, on Coreg. Due to acute kidney injury, Lasix will be on hold. The patient is on gentle fluid hydration. 6. Deep venous thrombosis (DVT) prophylaxis. On Lovenox. MTDD
[2017-01-23] MEDS: cefTRIAXone SOD 2 GM in D5W MINI-BAG PLUS 50 ML IV SCH (18:38)
[2017-01-23 19:56] VITALS: BP 146/82
[2017-01-23] MEDS: SYMBICORT 160/4.5MCG INHALER 6GM INH SCH (20:13)
[2017-01-23] MEDS: ASPIRIN 81 MG ENTERIC TAB PO SCH (21:07)
[2017-01-23] MEDS: AZITHROMYCIN 250 MG TAB PO SCH (21:11)
[2017-01-23 23:59] VITALS: BP 171/82
[2017-01-24] MEDS: methylPREDNISolone INJ 125 MG/2 ML VIAL (J2930) IV SCH ×5 (00:49→23:50)
[2017-01-24] MEDS: IPRATROPIUM 0.5MG/ALBUTEROL 2.5MG INH SOL UD 3ML (DUONEB)(J7620) NEB SCH ×6 (03:21→23:17)
[2017-01-24 03:43] VITALS: BP 148/91
[2017-01-24 05:31] LABS: MEAN CORPUSCULAR HGB CONC 32.5 g/dl (32.0-36.5); MEAN CORPUSCULAR VOLUME 89.1 fl (80.0-96.0); RED CELL DISTRIBUTION WIDTH 14.3 % (11.5-14.5); WHITE BLOOD COUNT 14.8 K/mm3 (4.0-10.0)
[2017-01-24 05:55] LABS: CALCIUM LEVEL 9.2 MG/DL (8.8-10.2); CREATININE FOR GFR 1.06 MG/DL (0.55-1.02); GLOMERULAR FILTRATION RATE 56.3 (>45); MAGNESIUM LEVEL 2.8 MG/DL (1.8-2.4); POTASSIUM SERUM 4.7 MEQ/L (3.5-5.1)
[2017-01-24] MEDS: SLF 3 ML SYR IV SCH ×3 (06:07→20:27)
[2017-01-24] MEDS: SYMBICORT 160/4.5MCG INHALER 6GM INH SCH ×2 (07:32→19:59)
[2017-01-24 08:00] VITALS: BP 140/72
[2017-01-24] MEDS: ENOXAPARIN 40 MG/0.4 ML SYRINGE (J1650) SC SCH (08:33)
[2017-01-24] MEDS: FAMOTIDINE 20 MG TAB PO SCH (08:33)
[2017-01-24] MEDS: NICOTINE 21MG/24HR 1 EA TRANSDERMAL TD SCH (08:34)
[2017-01-24 10:45] VITALS: BP 149/78
[2017-01-24] MEDS: guaiFENesin SYRUP 200 MG/10 ML UDC PO PRN (12:45)
[2017-01-24 14:00] VITALS: BP 145/75
--- NOTE | 2017-01-24 14:32 | IPNPDOC ---
Subjective Date Seen The patient was seen on 01/24/17. Subjective Chief Complaint/HPI The patient is a 61-year-old female admitted with a reason for visit of Pneumonia. Pt states she still feels slightly short of breath and is coughing up clear-white sputum, but feels she is overall improving. She is coughing and wheezing less. Eager to go home soon. States she slept great due to wearing CPAP to bed last night for the first time in the past few months. No acute complaints or events overnight. General: Reports: Normal Appetite, Denies: Chills, Fatigue Constitutional: Denies: Chills, Fever, Night Sweats, Weakness Eyes: Denies: Pain ENT: Denies: Dysphagia Pulmonary: Reports: Dyspnea, Cough Cardiovascular: Denies: Chest Pain, Palpitations, Edema, Lt Headedness Gastrointestinal: Denies: Nausea, Vomiting, Abdominal Pain, Diarrhea, Constipation Neurological: Denies: Weakness, Numbness Psych: Reports: Mood Normal GME ATTESTATION My preceptor for this patient encounter was physically present in the building during the encounter and was fully available. As needed, all aspects of the patient interview, examination, medical decision making process, and medical care plan development were reviewed and approved by the preceptor. Preceptor is aware and concurs with the plan as stated in the body of this note and will attest to such by his/her cosignature. Objective Physical Examination General Exam: Positive: Alert, Cooperative, No Acute Distress Eye Exam: Positive: Conjunctiva & lids normal ENT Exam: Positive: Atraumatic, Mucous membr. moist/pink Neck Exam: Positive: Supple Chest Exam: Positive: Wheezing (Wheezing diffusely bilaterally) Heart Exam: Positive: Rate Normal, Regular Rhythm, Normal S1, Normal S2, Negative: Murmurs Abdomen Exam: Positive: Normal bowel sounds, Soft, Negative: Tenderness Extremity Exam: Positive: Normal pulses, Negative: Edema, Tenderness, Swelling Neuro Exam: Positive: Normal Speech Psych Exam: Positive: Mental status NL, Mood NL, Oriented x 3 Assessment /Plan Assessment 1. Chronic obstructive pulmonary disease (COPD) exacerbation from human rhinovirus/enterovirus. Continue IV steroids and breathing treatment. Patient on Rocephin and azithromycin, and patient also given Robitussin to control the severity and frequency of the cough, with positive response. 2. Human rhinovirus and enterovirus. The patient is on precautions. Continue conservative medical management and maintain the oxygen saturation in the satisfactory range. 3. Obstructive sleep apnea (JIGNESH). Per patient, she is non-compliant with CPAP. The patient has had CPAP machine for a long time, but last used it about six months ago. Now restarted it last night and tolerated well. Continue CPAP. 4. Gastroesophageal reflux disease, on Pepcid. 5. Hypertension, on Coreg. Due to acute kidney injury, Lasix will be on hold. The patient is on gentle fluid hydration. 6. Deep venous thrombosis (DVT) prophylaxis. On Lovenox. Plan/VTE VTE Prophylaxis Ordered?: Yes VS, I&O, 24H, Fishbone Vital Signs/I&O Vital Signs Date Time Temp Pulse Resp B/P (MAP) Pulse Ox O2 Delivery O2 Flow Rate FiO2 01/24/17 10:45 Nasal Cannula 3.0 01/24/17 08:00 98.0 95 19 140/72 (94) 84 I&O- Last 24 Hours up to 6 AM 01/24/17 06:00 Intake Total 1730 ml Output Total 550 ml Balance 1180 ml Laboratory Data 24H LABS Laboratory Tests 2 01/24/17 05:05: Anion Gap 7L, Glomerular Filtration Rate 56.3, Blood Urea Nitrogen 28H, Creatinine 1.06H, Sodium Level 143, Potassium Level 4.7, Chloride Level 109H, Carbon Dioxide Level 27, Calcium Level 9.2, Magnesium Level 2.8H CBC/BMP Laboratory Tests 01/24/17 05:05 Red Blood Count 5.03, Mean Corpuscular Volume 89.1, Mean Corpuscular Hemoglobin 29.0, Mean Corpuscular Hemoglobin Concent 32.5, Red Cell Distribution Width 14.3 , Calcium Level 9.2 Microbiology Microbiology 01/21/17 Blood Culture - Preliminary, Resulted No Growth after 48 hours. All Specime... 01/21/17 Respiratory Virus Panel (PCR) (JOHNNY) - Final, Complete Human Rhinovirus/Enterovirus 01/21/17 Gram Stain - Final, Complete 01/21/17 Sputum Culture - Final, Complete SHARRON WALTERS DO Jan 24, 2017 14:32 MARILIN DO DO Feb 08, 2017 04:16
[2017-01-24] MEDS: cefTRIAXone SOD 2 GM in D5W MINI-BAG PLUS 50 ML IV SCH (19:05)
[2017-01-24] MEDS: ASPIRIN 81 MG ENTERIC TAB PO SCH (20:26)
[2017-01-24] MEDS: AZITHROMYCIN 250 MG TAB PO SCH (20:26)
[2017-01-24 22:00] VITALS: BP 153/74
[2017-01-25] MEDS: IPRATROPIUM 0.5MG/ALBUTEROL 2.5MG INH SOL UD 3ML (DUONEB)(J7620) NEB SCH ×7 (03:41→23:28)
[2017-01-25] MEDS: methylPREDNISolone INJ 125 MG/2 ML VIAL (J2930) IV SCH (05:29)
[2017-01-25] MEDS: SLF 3 ML SYR IV SCH ×2 (05:29→14:00)
[2017-01-25] MEDS: SYMBICORT 160/4.5MCG INHALER 6GM INH SCH ×2 (07:22→20:05)
[2017-01-25 07:36] LABS: MEAN CORPUSCULAR HEMOGLOBIN 28.7 pg (27.0-33.0); MEAN CORPUSCULAR HGB CONC 32.6 g/dl (32.0-36.5); MEAN CORPUSCULAR VOLUME 88.1 fl (80.0-96.0); RED CELL DISTRIBUTION WIDTH 13.9 % (11.5-14.5); WHITE BLOOD COUNT 11.3 K/mm3 (4.0-10.0)
[2017-01-25 07:58] LABS: ANION GAP 8 MEQ/L (8-16); BLOOD UREA NITROGEN 28 MG/DL (7-18); CALCIUM LEVEL 9.4 MG/DL (8.8-10.2); CARBON DIOXIDE LEVEL 27 MEQ/L (21-32); CHLORIDE LEVEL 108 MEQ/L (98-107); CREATININE FOR GFR 0.96 MG/DL (0.55-1.02); GLOMERULAR FILTRATION RATE > 60.0 (>45); GLUCOSE, FASTING 178 MG/DL (80-110); POTASSIUM SERUM 4.3 MEQ/L (3.5-5.1); SODIUM LEVEL 143 MEQ/L (136-145)
[2017-01-25] MEDS: ENOXAPARIN 40 MG/0.4 ML SYRINGE (J1650) SC SCH (08:52)
[2017-01-25] MEDS: NICOTINE 21MG/24HR 1 EA TRANSDERMAL TD SCH (08:52)
[2017-01-25] MEDS: FAMOTIDINE 20 MG TAB PO SCH (08:52)
[2017-01-25] MEDS: predniSONE 20 MG TAB PO SCH (08:52)
[2017-01-25] MEDS ORDERED: SIMETHICONE 80 MG CHEW TAB PO PRN (10:00)
[2017-01-25 14:00] VITALS: BP 120/75
[2017-01-25] MEDS: cefTRIAXone SOD 2 GM in D5W MINI-BAG PLUS 50 ML IV SCH (18:00)
[2017-01-25] MEDS: ASPIRIN 81 MG ENTERIC TAB PO SCH (20:14)
[2017-01-25] MEDS: traMADol 50 MG TAB PO PRN (20:14)
[2017-01-25] MEDS: AZITHROMYCIN 250 MG TAB PO SCH (20:15)
[2017-01-25] MEDS: guaiFENesin SYRUP 200 MG/10 ML UDC PO PRN (20:17)
[2017-01-25 22:00] VITALS: BP 142/83
--- NOTE | 2017-01-25 22:43 | IPNPDOC ---
Subjective Date Seen The patient was seen on 01/25/17. Subjective Chief Complaint/HPI The patient is a 61-year-old female admitted with a reason for visit of Pneumonia. Pt used CPAP again last night, day 2, and tolerating well. States she feels she is improving, but still coughing and wheezing. She will try to ambulate out of bed. No acute complaints or events overnight. General: Reports: Normal Appetite, Denies: Chills, Night Sweats, Fatigue Constitutional: Denies: Chills, Fever, Weakness Eyes: Denies: Pain, Vision change ENT: Denies: Head Aches, Dysphagia Pulmonary: Reports: Cough, Denies: Dyspnea Cardiovascular: Denies: Chest Pain, Palpitations, Orthopnea, Edema, Lt Headedness Gastrointestinal: Denies: Nausea, Vomiting, Abdominal Pain, Diarrhea, Constipation Neurological: Denies: Weakness, Numbness, Incoordination, Confusion Psych: Reports: Mood Normal Objective Physical Examination General Exam: Positive: Alert, Cooperative, No Acute Distress Eye Exam: Positive: Conjunctiva & lids normal ENT Exam: Positive: Atraumatic, Mucous membr. moist/pink Neck Exam: Positive: Supple, Negative: JVD Chest Exam: Positive: Wheezing (Wheezing diffusely bilaterally, improving from yesterday) Heart Exam: Positive: Rate Normal, Regular Rhythm, Normal S1, Normal S2, Negative: Murmurs Abdomen Exam: Positive: Normal bowel sounds, Soft, Negative: Tenderness Extremity Exam: Positive: Normal pulses, Negative: Edema, Tenderness, Swelling Neuro Exam: Positive: Normal Speech Psych Exam: Positive: Mental status NL, Mood NL, Oriented x 3 Assessment /Plan Assessment 1. Chronic obstructive pulmonary disease (COPD) exacerbation from human rhinovirus/enterovirus. Continue breathing treatment. Patient on Rocephin and azithromycin, and patient also given Robitussin to control the severity and frequency of the cough, with positive response. IV Solumedrol switched to PO Prednisone 40mg. 2. Human rhinovirus and enterovirus. The patient is on precautions. Continue conservative medical management and maintain the oxygen saturation in the satisfactory range. 3. Obstructive sleep apnea (JIGNESH). Per patient, she is non-compliant with CPAP. The patient has had CPAP machine for a long time, but last used it about six months ago. Now restarted it 2 nights ago and tolerated well. Continue CPAP. 4. Gastroesophageal reflux disease, on Pepcid. 5. Deep venous thrombosis (DVT) prophylaxis. On Lovenox. Plan/VTE VTE Prophylaxis Ordered?: Yes VS, I&O, 24H, Fishbone Vital Signs/I&O Vital Signs Date Time Temp Pulse Resp B/P (MAP) Pulse Ox O2 Delivery O2 Flow Rate FiO2 01/25/17 06:00 97.1 91 18 92 Nasal Cannula 3.0 01/24/17 22:00 153/74 (100) I&O- Last 24 Hours up to 6 AM 01/25/17 06:00 Intake Total 2087 ml Output Total 1440 ml Balance 647 ml Laboratory Data 24H LABS Laboratory Tests 2 01/25/17 07:16: Anion Gap 8, Glomerular Filtration Rate > 60.0, Blood Urea Nitrogen 28H, Creatinine 0.96, Sodium Level 143, Potassium Level 4.3, Chloride Level 108H, Carbon Dioxide Level 27, Calcium Level 9.4, Magnesium Level 3.0H CBC/BMP Laboratory Tests 01/25/17 07:16 Red Blood Count 5.07, Mean Corpuscular Volume 88.1, Mean Corpuscular Hemoglobin 28.7, Mean Corpuscular Hemoglobin Concent 32.6, Red Cell Distribution Width 13.9 , Calcium Level 9.4 Microbiology Microbiology 01/21/17 Blood Culture - Preliminary, Resulted No Growth after 72 hours. All specime... 01/21/17 Respiratory Virus Panel (PCR) (JOHNNY) - Final, Complete Human Rhinovirus/Enterovirus 01/21/17 Gram Stain - Final, Complete 01/21/17 Sputum Culture - Final, Complete GME ATTESTATION GME ATTESTATION My preceptor for this patient encounter was physically present in the building during the encounter and was fully available. As needed, all aspects of the patient interview, examination, medical decision making process, and medical care plan development were reviewed and approved by the preceptor. Preceptor is aware and concurs with the plan as stated in the body of this note and will attest to such by his/her cosignature. SHARRON WALTERS DO Jan 25, 2017 08:28
[2017-01-25] MEDS: CEFDINIR 300 MG CAP (OMNICEF) PO SCH (22:54)
[2017-01-26 06:00] VITALS: BP 164/88
[2017-01-26 06:35] LABS: MEAN CORPUSCULAR HEMOGLOBIN 29.4 pg (27.0-33.0); MEAN CORPUSCULAR HGB CONC 32.9 g/dl (32.0-36.5); MEAN CORPUSCULAR VOLUME 89.3 fl (80.0-96.0); RED CELL DISTRIBUTION WIDTH 14.3 % (11.5-14.5); WHITE BLOOD COUNT 11.2 K/mm3 (4.0-10.0)
[2017-01-26 06:53] LABS: ANION GAP 7 MEQ/L (8-16); BLOOD UREA NITROGEN 28 MG/DL (7-18); CALCIUM LEVEL 8.8 MG/DL (8.8-10.2); CARBON DIOXIDE LEVEL 28 MEQ/L (21-32); CHLORIDE LEVEL 111 MEQ/L (98-107); CREATININE FOR GFR 0.87 MG/DL (0.55-1.02); GLOMERULAR FILTRATION RATE > 60.0 (>45); GLUCOSE, FASTING 152 MG/DL (80-110); MAGNESIUM LEVEL 2.8 MG/DL (1.8-2.4); POTASSIUM SERUM 4.1 MEQ/L (3.5-5.1); SODIUM LEVEL 146 MEQ/L (136-145)
[2017-01-26] MEDS: SYMBICORT 160/4.5MCG INHALER 6GM INH SCH (07:17)
[2017-01-26] MEDS: IPRATROPIUM 0.5MG/ALBUTEROL 2.5MG INH SOL UD 3ML (DUONEB)(J7620) NEB SCH ×2 (07:17→11:27)
[2017-01-26] MEDS: CEFDINIR 300 MG CAP (OMNICEF) PO SCH (07:57)
[2017-01-26] MEDS: predniSONE 20 MG TAB PO SCH (07:57)
[2017-01-26] MEDS: FAMOTIDINE 20 MG TAB PO SCH (07:57)
[2017-01-26] MEDS: NICOTINE 21MG/24HR 1 EA TRANSDERMAL TD SCH (07:58)
[2017-01-26] MEDS ORDERED: PRED10TA2 PO (08:34)
[2017-01-26] MEDS ORDERED: CEFD300CAP PO (08:34)
--- NOTE | 2017-01-26 16:15 | DS.PDOC ---
Discharge Summary General Date of Admission Jan 21, 2017 at 13:53 Date of Discharge 01/26/17 Discharge Summary PROCEDURES PERFORMED DURING STAY: None. ADMITTING DIAGNOSES: 1. . COPD exacerbation secondary to human rhinovirus/enterovirus 2. . Superimposed Community acquired Bacterial pneumonia DISCHARGE DIAGNOSES: 1. . COPD exacerbation secondary to human rhinovirus/enterovirus 2. . Superimposed Community acquired Bacterial pneumonia COMPLICATIONS/CHIEF COMPLAINT: Pneumonia. HISTORY OF PRESENT ILLNESS: . 61-year-old female with past medical history of COPD on 2 L of she at baseline, obstructive sleep apnea, GERD, hypertension, gastroparesis, and obesity presented to the ER with a chief complaint of shortness of breath. The patient states that she was having some construction going on in the apartment complex she is living in and subsequent noted to have increased shortness of breath, with a cough productive of whitish sputum. The patient denied any chest pain, palpitations, abdominal pain, orthopnea, PND, extremity swelling, or any nausea/ vomiting/diarrhea. In the ER, a chest x-ray revealed right lower lobe infiltrate. The patient was admitted to the hospitalist service for further evaluation and management. During hospitalization, a respiratory panel revealed positive for human rhinovirus/enterovirus. The patient was treated with IV steroids and IV antibiotics for superimposed bacterial pneumonia noted on chest x-ray. The patient's respiratory status subsequently improved with the aforementioned therapy. The patient's IV steroids and IV antibiotics have been transitioned to by mouth. At this time, the patient states that she is feeling much better and is eager to return home. She has been ambulating the hallways and notes that her respiratory status is back to her baseline. I've advised the patient to complete her course of antibiotics and steroid taper. The patient also had her CPAP machine evaluated by the respiratory therapist team, and she has been prescribed a replacement machine. I have extensively discussed the need for the patient to remain adherent to CPAP therapy given her underlying JIGNESH. In addition , I have advised the patient to follow-up with her primary care physician within one week. The patient has been consulted to return to the ER for any acute emergencies. DISCHARGE MEDICATIONS: Please see below. ALLERGIES: Please see below. PHYSICAL EXAMINATION ON DISCHARGE: VITAL SIGNS: Please see below. GENERAL: Awake, alert, oriented HEENT: Normocephalic, atraumatic NECK: No JVD CARDIOVASCULAR EXAMINATION: Normal rate, normal S1, S2 RESPIRATORY EXAMINATION: Faint expiratory wheeze noted on auscultation, improved ABDOMINAL EXAMINATION: Soft, nontender, nondistended EXTREMITIES: No tenderness or swelling LABORATORY DATA: Please see below. IMAGING: Portable chest, 11:23 a.m., single AP view, patient sitting: Comparison is 09/11/2016. There is a right lower lobe infiltrate as a change from the prior study. No pleural effusion is identified. Left lung is clear. Cardiac size is normal. The dariel, mediastinum, and bony thorax are unremarkable. Impression: Right lower lobe infiltrate. PROGNOSIS: Fair ACTIVITY: As tolerated. DIET: . 2 g low sodium diet DISCHARGE PLAN: DISPOSITION: Home, Self-Care. DISCHARGE INSTRUCTIONS: 1. . Follow-up with primary care physician within one week 2. . Complete course of by mouth antibiotic and steroid taper 3. . Return to the ER for any acute emergencies DISCHARGE CONDITION: Stable. TIME SPENT ON DISCHARGE: Greater than 30 minutes. Vital Signs/I&Os Vital Signs Date Time Temp Pulse Resp B/P (MAP) Pulse Ox O2 Delivery O2 Flow Rate FiO2 01/26/17 09:14 Nasal Cannula 2.0 01/26/17 06:00 97.1 74 18 164/88 (113) 92 I&O- Last 24 Hours up to 6 AM 01/26/17 05:59 Intake Total 1500 ml Output Total 2250 ml Balance -750 ml Laboratory Data Labs 24H Laboratory Tests 2 01/26/17 06:15: Anion Gap 7L, Glomerular Filtration Rate > 60.0, Blood Urea Nitrogen 28H, Creatinine 0.87, Sodium Level 146H, Potassium Level 4.1, Chloride Level 111H, Carbon Dioxide Level 28, Calcium Level 8.8, Magnesium Level 2.8H CBC/BMP Laboratory Tests 01/26/17 06:15 Red Blood Count 4.77, Mean Corpuscular Volume 89.3, Mean Corpuscular Hemoglobin 29.4, Mean Corpuscular Hemoglobin Concent 32.9, Red Cell Distribution Width 14.3 , Calcium Level 8.8 Microbiology Microbiology 01/21/17 Blood Culture - Final, Complete NO GROWTH AFTER 5 DAYS 01/21/17 Respiratory Virus Panel (PCR) (JOHNNY) - Final, Complete Human Rhinovirus/Enterovirus 01/21/17 Gram Stain - Final, Complete 01/21/17 Sputum Culture - Final, Complete Discharge Medications Scheduled Aspirin (Aspir-81) 81 Mg Tab, 81 MG PO QHS, (Reported) Budesonide/Formoterol (Symbicort 160-4.5 Mcg/Act) 60 Puff/Inhaler Aers, 2 PUFF INH BID, (Reported) Cefdinir (Cefdinir) 300 Mg Cap, 300 MG PO BID Furosemide (Furosemide) 40 Mg Tab, 40 MG PO DAILY, (Reported) Prednisone (Prednisone) 10 Mg Tab, 10 MG PO TAPER Take 4 tabs daily x 3 days, then 3 tabs daily x 3 days, then 2 tabs daily x 3 days, then 1 tab daily x 3 days and stop Ranitidine HCl (Ranitidine HCl) 300 Mg Tab, 1 TAB PO DAILY, (Reported) Scheduled PRN Albuterol Sulfate (Albuterol Sulfate) 2.5 Mg/3 Ml Nebu, 2.5 MG INH QIDP PRN for SHORTNESS OF BREATH, (Reported) Albuterol Sulfate (Proair Hfa) 108 Mcg/Act Aer, 2 PUFF INH Q4H PRN for SHORTNESS OF BREATH, (Reported) Diphenhydramine HCl (Diphenhist) 25 Mg Cap, 25 MG PO Q6H PRN for ALLERGIC REACTION, (Reported) Docusate Sodium (Docusate Sodium) 100 Mg Cap, 100 MG PO BIDP PRN for CONSTIPATION, (Reported) Hydrocortisone Base (Cortizone-10) 1 % Oin, 1 DOSE TOP BID PRN for ITCHING, ( Reported) TO LEFT ARM Loperamide HCl (Loperamide HCl) 2 Mg Tab, 2 MG PO for DIARRHEA, (Reported) Tramadol HCl (Tramadol HCl) 50 Mg Tab, 50 MG PO QID PRN for PAIN, (Reported) Allergies Coded Allergies: Penicillins (Verified Allergy, Intermediate, HIVES, 09/11/12) Penicillins Cross Reactors (Verified Allergy, Intermediate, HIVES, 09/11/12) Quinolones (Verified Allergy, Mild, RASH, 09/11/12) Aripiprazole (Verified Allergy, Unknown, 09/11/12) Erythromycin (Verified Allergy, Unknown, 09/11/12) Tetracycline (Verified Allergy, Unknown, DOXYCYCLINE, 09/11/12) Venlafaxine (Verified Allergy, Unknown, 09/11/12) Sulfa Drugs (Verified Adverse Reaction, Mild, VOMITS, 09/11/12) Sulfa Drugs Cross Reactors (Verified Adverse Reaction, Mild, VOMITS, ) ABHISHEK ARENAS MD Jan 26, 2017 16:15
[2017-01-29] MEDS ORDERED: CEFDINIR 300 MG CAP (OMNICEF) PO SCH (21:00)
== END 2017-01-26 12:15 | disposition home or self-care (01) | DRG 190 ==
LOC: M ED 10:35 → M ED INP 13:53 → M PCU 17:23 → M MS5PR 01-24 10:50
PROVIDERS: ADMIT Internal Medicine; ATTEND Internal Medicine
DX: J44.1 Chronic obstructive pulmonary disease with (acute) exacerbation (principal); J18.9 Pneumonia, unspecified organism; J15.9 Unspecified bacterial pneumonia; J96.11 Chronic respiratory failure with hypoxia; Z68.41 Body mass index [BMI] 40.0-44.9, adult; N17.9 Acute kidney failure, unspecified; E66.01 Morbid (severe) obesity due to excess calories; B34.8 Other viral infections of unspecified site; G47.33 Obstructive sleep apnea (adult) (pediatric); I10 Essential (primary) hypertension; Z79.82 Long term (current) 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; Z79.899 Other long term (current) drug therapy; Z88.0 Allergy status to penicillin; Z88.2 Allergy status to sulfonamides; Z88.8 Allergy status to other drugs, medicaments and biological substances; K31.84 Gastroparesis; F17.200 Nicotine dependence, unspecified, uncomplicated; K21.9 Gastro-esophageal reflux disease without esophagitis

== ENCOUNTER → 2017-02-25 | Outpatient (CLI) | payer MEDICARE, MEDICAID ==
[~2017-02-25] MED LIST changes: +CEFD300CAP PO; +CORT1OIN2 TOP; +LOPE2CAP PO; +PROAAER10 INH; +RANI300T PO; +TRAM50TA2 PO; -UNRESOLVED CLARIFICATION ENTRY XX SCH
--- NOTE | 2017-02-25 15:25 | REP ---
CHEST X-RAY: Two views. HISTORY: Pneumonia. Comparison chest x-ray: January 21, 2017. FINDINGS: The lungs are hyperinflated but free of infiltrate. Pleural angles are sharp. Heart size is normal. Pulmonary vasculature is not increased. The aorta is slightly tortuous as before. No significant bony abnormality. IMPRESSION: Hyperinflation consistent with some degree of COPD. No acute disease seen. Signed by Edward Ramírez MD 02/25/2017 05:11 P
== END ==
LOC: M RAD 14:31
PROVIDERS: ATTEND Family Medicine
DX: J18.9 Pneumonia, unspecified organism (principal)

== ENCOUNTER → 2017-03-25 | Outpatient (REF) | payer MEDICARE | LOC: M LAB REF 15:03 | PROVIDERS: ATTEND Internal Medicine Gastroenterology | DX: R19.7 Diarrhea, unspecified (principal); K62.5 Hemorrhage of anus and rectum ==

== ENCOUNTER → 2017-10-28 | Outpatient (CLI) | payer MEDICARE, MEDICAID ==
[2017-10-28 09:21] LABS: BASO # 0.1 10^3/uL (0.0-0.2); BASO % 0.7 % (0.0-1.0); EOS # 0.2 10^3/uL (0.0-0.50); EOS % 2.4 % (0.0-3.0); HEMOGLOBIN 16.2 g/dl (12.0-15.5); IMMATURE GRANULOCYTE % 0.6 % (0-3.0); LYMPH # 2.5 10^3/uL (1.5-4.5); LYMPH % 25.5 % (24.0-44.0); MEAN CORPUSCULAR HEMOGLOBIN 28.4 pg (27.0-33.0); MEAN CORPUSCULAR HGB CONC 32.4 g/dl (32.0-36.5); MEAN CORPUSCULAR VOLUME 87.6 fl (80.0-96.0); MONO # 0.5 10^3/uL (0.0-0.8); MONO % 5.6 % (0.0-5.0); NEUTROPHILS # 6.3 10^3/uL (1.8-7.7); NEUTROPHILS % 65.2 % (36.0-66.0); PLATELET COUNT, AUTOMATED 272 10^3/uL (150-450); RED BLOOD COUNT 5.71 10^6/uL (4.00-5.40); WHITE BLOOD COUNT 9.7 10^3/uL (4.0-10.0)
[2017-10-28 10:06] LABS: ALBUMIN/GLOBULIN RATIO 1.25 (1.00-1.93); ALKALINE PHOSPHATASE 69 U/L (45-117); ALT/SGPT 28 U/L (12-78); ANION GAP 9 MEQ/L (8-16); AST/SGOT 12 U/L (7-37); BILIRUBIN,TOTAL 0.4 MG/DL (0.2-1.0); BLOOD UREA NITROGEN 9 MG/DL (7-18); CALCIUM LEVEL 9.2 MG/DL (8.8-10.2); CARBON DIOXIDE LEVEL 29 MEQ/L (21-32); CHLORIDE LEVEL 106 MEQ/L (98-107); CHOLESTEROL LEVEL 171 MG/DL (<200); CHOLESTEROL RISK RATIO 5.029 (<5); CREATININE FOR GFR 1.09 MG/DL (0.55-1.30); GLOMERULAR FILTRATION RATE 54.3 (>45); GLUCOSE, FASTING 104 MG/DL (70-100); HDL CHOLESTEROL 34 MG/DL (>40); LDL CHOLESTEROL 96.4 MG/DL (<100); NON-HDL-C 137 MG/DL; POTASSIUM SERUM 4.3 MEQ/L (3.5-5.1); SODIUM LEVEL 144 MEQ/L (136-145); TOTAL PROTEIN 7.2 GM/DL (6.4-8.2); TRIGLYCERIDES LEVEL 203 MG/DL (<150)
[2017-10-28 10:51] LABS: ESTIMATED AVERAGE GLUCOSE 128 MG/DL (60-110); HEMOGLOBIN A1c 6.1 %
== END ==
LOC: M RAD 08:04
DX: Z12.31 Encounter for screening mammogram for malignant neoplasm of breast (principal); J44.1 Chronic obstructive pulmonary disease with (acute) exacerbation; E78.5 Hyperlipidemia, unspecified; R73.09 Other abnormal glucose
CPT/HCPCS: 77067

== ENCOUNTER 2017-12-06 10:45 | Inpatient (IN) | payer MEDICARE, MEDICAID ==
[2017-12-06] MEDS: IPRATROPIUM 0.5MG/ALBUTEROL 2.5MG INH SOL UD 3ML (DUONEB)(J7620) NEB ×5 (11:13→20:29)
[2017-12-06 11:26] LABS: ABG BASE EXCESS 0.9 (-2.0-2.0); ABG HCO3 26.8 MEQ/L (22.0-26.0); ABG O2 SATURATION 87.3 % (95.0-99.0); ABG PARTIAL PRESSURE CO2 46.8 mmHg (35.0-45.0); ABG PARTIAL PRESSURE O2 52.4 mmHg (75.0-100.0); ABG TOTAL CO2 28.2 MEQ/L (23.0-31.0); ABG pH (ARTERIAL) 7.375 UNITS (7.350-7.450)
[2017-12-06 11:43] LABS: BASO # 0.1 10^3/uL (0.0-0.2); BASO % 0.5 % (0.0-1.0); EOS # 0.2 10^3/uL (0.0-0.50); EOS % 1.4 % (0.0-3.0); HEMOGLOBIN 15.6 g/dl (12.0-15.5); IMMATURE GRANULOCYTE % 0.5 % (0-3.0); LYMPH # 1.1 10^3/uL (1.5-4.5); LYMPH % 10.8 % (24.0-44.0); MEAN CORPUSCULAR HEMOGLOBIN 28.8 pg (27.0-33.0); MEAN CORPUSCULAR HGB CONC 32.5 g/dl (32.0-36.5); MEAN CORPUSCULAR VOLUME 88.7 fl (80.0-96.0); MONO # 0.4 10^3/uL (0.0-0.8); MONO % 3.7 % (0.0-5.0); NEUTROPHILS # 8.7 10^3/uL (1.8-7.7); NEUTROPHILS % 83.1 % (36.0-66.0); PLATELET COUNT, AUTOMATED 227 10^3/uL (150-450); RED BLOOD COUNT 5.41 10^6/uL (4.00-5.40); RED CELL DISTRIBUTION WIDTH 15.1 % (11.5-14.5); WHITE BLOOD COUNT 10.4 10^3/uL (4.0-10.0)
[2017-12-06 12:04] LABS: LACTIC ACID SEPSIS PROTOCOL 1.2 MMOL/L (0.4-2.0)
[2017-12-06 12:05] LABS: ANION GAP 8 MEQ/L (8-16); BLOOD UREA NITROGEN 13 MG/DL (7-18); CARBON DIOXIDE LEVEL 28 MEQ/L (21-32); CHLORIDE LEVEL 107 MEQ/L (98-107); CPK CREATINE PHOSPHOKINASE 72 U/L (26-192); CREATININE FOR GFR 1.11 MG/DL (0.55-1.30); GLOMERULAR FILTRATION RATE 53.2 (>45); GLUCOSE, FASTING 111 MG/DL (70-100); POTASSIUM SERUM 3.8 MEQ/L (3.5-5.1); SODIUM LEVEL 143 MEQ/L (136-145); TROPONIN I < 0.02 NG/ML (< 0.10)
[2017-12-06 12:11] LABS: CK-MB VALUE MASS < 1.0 NG/ML (<3.6); MB/CK RELATIVE INDEX 1.38 (< OR =4); NT-PRO BNP 137 PG/ML (<125)
[2017-12-06] MEDS ORDERED: ACETAMINOPHEN TAB 650MG DOSE (2X325MG) PO (14:30)
[2017-12-06] MEDS ORDERED: ALBUTEROL SULFATE 2.5 MG/0.5 ML INH NEB SOLN NEB (14:30)
[2017-12-06] MEDS: methylPREDNISolone INJ 125 MG/2 ML VIAL (J2930) IV ×2 (17:25→22:40)
[2017-12-06] MEDS: AZITHROMYCIN INJ 500 MG, VIAL MATE ADAPTER 1 EACH in D5W 250 ML IV (17:25)
[2017-12-06] MEDS: NICOTINE 21MG/24HR 1 EA TRANSDERMAL TD (17:26)
[2017-12-06] MEDS: FUROSEMIDE 40 MG TAB PO (17:26)
[2017-12-06] MEDS: PANTOPRAZOLE 40MG TAB (PROTONIX) PO (17:27)
[2017-12-06] MEDS: BUDESONIDE 0.5 MG/2 ML INHALATION SUSPENSION INH (20:29)
[2017-12-06] MEDS: guaiFENesin ER 600 MG TAB PO (21:05)
[2017-12-07] MEDS: methylPREDNISolone INJ 125 MG/2 ML VIAL (J2930) IV ×4 (03:54→22:22)
[2017-12-07] MEDS: guaiFENesin DM LIQ 10ML UD PO (04:22)
[2017-12-07 06:09] LABS: BASO % 0.3 % (0.0-1.0); HEMATOCRIT 47.8 % (36.0-47.0); HEMOGLOBIN 15.3 g/dl (12.0-15.5); IMMATURE GRANULOCYTE % 1.1 % (0-3.0); LYMPH # 0.6 10^3/uL (1.5-4.5); LYMPH % 5.6 % (24.0-44.0); MEAN CORPUSCULAR HEMOGLOBIN 28.7 pg (27.0-33.0); MEAN CORPUSCULAR VOLUME 89.5 fl (80.0-96.0); MONO # 0.1 10^3/uL (0.0-0.8); MONO % 1.3 % (0.0-5.0); NEUTROPHILS # 10.1 10^3/uL (1.8-7.7); NEUTROPHILS % 91.7 % (36.0-66.0); PLATELET COUNT, AUTOMATED 215 10^3/uL (150-450); RED BLOOD COUNT 5.34 10^6/uL (4.00-5.40); RED CELL DISTRIBUTION WIDTH 14.9 % (11.5-14.5)
[2017-12-07 06:26] LABS: ALBUMIN 3.3 GM/DL (3.2-5.2); ALBUMIN/GLOBULIN RATIO 0.89 (1.00-1.93); ALKALINE PHOSPHATASE 59 U/L (45-117); ALT/SGPT 29 U/L (12-78); ANION GAP 8 MEQ/L (8-16); AST/SGOT 12 U/L (7-37); BILIRUBIN,TOTAL 0.2 MG/DL (0.2-1.0); BLOOD UREA NITROGEN 19 MG/DL (7-18); CALCIUM LEVEL 9.6 MG/DL (8.8-10.2); CARBON DIOXIDE LEVEL 29 MEQ/L (21-32); CHLORIDE LEVEL 106 MEQ/L (98-107); CREATININE FOR GFR 1.37 MG/DL (0.55-1.30); GLOMERULAR FILTRATION RATE 41.7 (>45); GLUCOSE, FASTING 197 MG/DL (70-100); POTASSIUM SERUM 4.3 MEQ/L (3.5-5.1); SODIUM LEVEL 143 MEQ/L (136-145)
[2017-12-07] MEDS: IPRATROPIUM 0.5MG/ALBUTEROL 2.5MG INH SOL UD 3ML (DUONEB)(J7620) NEB ×4 (07:35→20:45)
[2017-12-07] MEDS: BUDESONIDE 0.5 MG/2 ML INHALATION SUSPENSION INH ×2 (07:35→20:45)
[2017-12-07] MEDS: BENZONATATE 100 MG CAP PO ×2 (09:00→20:19)
[2017-12-07] MEDS: guaiFENesin ER 600 MG TAB PO ×2 (09:14→20:19)
[2017-12-07] MEDS: PANTOPRAZOLE 40MG TAB (PROTONIX) PO (09:14)
[2017-12-07] MEDS: FUROSEMIDE 40 MG TAB PO (09:14)
[2017-12-07] MEDS: NICOTINE 21MG/24HR 1 EA TRANSDERMAL TD (09:15)
[2017-12-07] MEDS: ENOXAPARIN 40 MG/0.4 ML SYRINGE (J1650) SC (09:15)
[2017-12-07] MEDS: traMADol 50 MG TAB PO ×2 (12:04→18:10)
[2017-12-07] MEDS: AZITHROMYCIN INJ 500 MG, VIAL MATE ADAPTER 1 EACH in D5W 250 ML IV (17:14)
[2017-12-08] MEDS: methylPREDNISolone INJ 125 MG/2 ML VIAL (J2930) IV ×2 (03:47→09:03)
[2017-12-08] MEDS: traMADol 50 MG TAB PO ×2 (03:52→15:34)
[2017-12-08 05:54] LABS: BASO % 0.1 % (0.0-1.0); HEMATOCRIT 46.4 % (36.0-47.0); HEMOGLOBIN 14.7 g/dl (12.0-15.5); IMMATURE GRANULOCYTE % 1.3 % (0-3.0); LYMPH % 6.1 % (24.0-44.0); MEAN CORPUSCULAR HEMOGLOBIN 28.8 pg (27.0-33.0); MEAN CORPUSCULAR HGB CONC 31.7 g/dl (32.0-36.5); MEAN CORPUSCULAR VOLUME 90.8 fl (80.0-96.0); MONO # 0.5 10^3/uL (0.0-0.8); MONO % 2.8 % (0.0-5.0); NEUTROPHILS # 15.4 10^3/uL (1.8-7.7); NEUTROPHILS % 89.7 % (36.0-66.0); PLATELET COUNT, AUTOMATED 222 10^3/uL (150-450); RED BLOOD COUNT 5.11 10^6/uL (4.00-5.40); RED CELL DISTRIBUTION WIDTH 15.2 % (11.5-14.5); WHITE BLOOD COUNT 17.1 10^3/uL (4.0-10.0)
[2017-12-08 06:20] LABS: ALBUMIN 3.1 GM/DL (3.2-5.2); ALBUMIN/GLOBULIN RATIO 0.91 (1.00-1.93); ALKALINE PHOSPHATASE 51 U/L (45-117); ALT/SGPT 30 U/L (12-78); ANION GAP 8 MEQ/L (8-16); AST/SGOT 16 U/L (7-37); BILIRUBIN,TOTAL 0.2 MG/DL (0.2-1.0); BLOOD UREA NITROGEN 23 MG/DL (7-18); CALCIUM LEVEL 9.7 MG/DL (8.8-10.2); CARBON DIOXIDE LEVEL 31 MEQ/L (21-32); CHLORIDE LEVEL 104 MEQ/L (98-107); GLOMERULAR FILTRATION RATE 48.6 (>45); GLUCOSE, FASTING 243 MG/DL (70-100); SODIUM LEVEL 143 MEQ/L (136-145); TOTAL PROTEIN 6.5 GM/DL (6.4-8.2)
[2017-12-08 06:31] LABS: POTASSIUM SERUM 5.3 MEQ/L (3.5-5.1)
[2017-12-08] MEDS: guaiFENesin DM LIQ 10ML UD PO (07:26)
[2017-12-08] MEDS: BUDESONIDE 0.5 MG/2 ML INHALATION SUSPENSION INH ×2 (07:29→19:55)
[2017-12-08] MEDS: IPRATROPIUM 0.5MG/ALBUTEROL 2.5MG INH SOL UD 3ML (DUONEB)(J7620) NEB ×4 (07:29→19:55)
[2017-12-08] MEDS: DOCUSATE SODIUM 100 MG CAP PO (09:02)
[2017-12-08] MEDS: PANTOPRAZOLE 40MG TAB (PROTONIX) PO (09:02)
[2017-12-08] MEDS: ENOXAPARIN 40 MG/0.4 ML SYRINGE (J1650) SC (09:03)
[2017-12-08] MEDS: NICOTINE 21MG/24HR 1 EA TRANSDERMAL TD (09:03)
[2017-12-08] MEDS: guaiFENesin ER 600 MG TAB PO ×2 (09:03→21:49)
[2017-12-08] MEDS: BENZONATATE 100 MG CAP PO ×2 (09:03→21:49)
[2017-12-08] MEDS: FUROSEMIDE 40 MG TAB PO (09:04)
[2017-12-08] MEDS: predniSONE 20 MG TAB PO (12:16)
[2017-12-08] MEDS: AZITHROMYCIN INJ 500 MG, VIAL MATE ADAPTER 1 EACH in D5W 250 ML IV (15:34)
[2017-12-08] MEDS ORDERED: SIMETHICONE 80 MG CHEW TAB PO (17:30)
[2017-12-08] MEDS ORDERED: PILL CRUSHER/CUTTER 1 EACH XX (17:30)
[2017-12-08] MEDS: SIMETHICONE 80 MG CHEW TAB PO (17:37)
[2017-12-09] MEDS: DOCUSATE SODIUM 100 MG CAP PO (01:56)
[2017-12-09 05:52] LABS: BASO % 0.2 % (0.0-1.0); HEMATOCRIT 43.5 % (36.0-47.0); HEMOGLOBIN 14.2 g/dl (12.0-15.5); IMMATURE GRANULOCYTE % 1.4 % (0-3.0); LYMPH # 1.4 10^3/uL (1.5-4.5); MEAN CORPUSCULAR HEMOGLOBIN 28.9 pg (27.0-33.0); MEAN CORPUSCULAR HGB CONC 32.6 g/dl (32.0-36.5); MEAN CORPUSCULAR VOLUME 88.4 fl (80.0-96.0); MONO # 0.7 10^3/uL (0.0-0.8); MONO % 4.6 % (0.0-5.0); NEUTROPHILS # 12.9 10^3/uL (1.8-7.7); NEUTROPHILS % 84.8 % (36.0-66.0); PLATELET COUNT, AUTOMATED 202 10^3/uL (150-450); RED BLOOD COUNT 4.92 10^6/uL (4.00-5.40); RED CELL DISTRIBUTION WIDTH 15.2 % (11.5-14.5); WHITE BLOOD COUNT 15.2 10^3/uL (4.0-10.0)
[2017-12-09 06:30] LABS: ALBUMIN 3.1 GM/DL (3.2-5.2); ALBUMIN/GLOBULIN RATIO 0.91 (1.00-1.93); ALKALINE PHOSPHATASE 49 U/L (45-117); ALT/SGPT 35 U/L (12-78); ANION GAP 7 MEQ/L (8-16); AST/SGOT 21 U/L (7-37); BILIRUBIN,TOTAL 0.4 MG/DL (0.2-1.0); BLOOD UREA NITROGEN 24 MG/DL (7-18); CALCIUM LEVEL 9.5 MG/DL (8.8-10.2); CARBON DIOXIDE LEVEL 31 MEQ/L (21-32); CHLORIDE LEVEL 104 MEQ/L (98-107); GLOMERULAR FILTRATION RATE 53.8 (>45); GLUCOSE, FASTING 190 MG/DL (70-100); POTASSIUM SERUM 4.6 MEQ/L (3.5-5.1); SODIUM LEVEL 142 MEQ/L (136-145); TOTAL PROTEIN 6.5 GM/DL (6.4-8.2)
[2017-12-09] MEDS: BUDESONIDE 0.5 MG/2 ML INHALATION SUSPENSION INH (07:17)
[2017-12-09] MEDS: IPRATROPIUM 0.5MG/ALBUTEROL 2.5MG INH SOL UD 3ML (DUONEB)(J7620) NEB ×2 (07:17→10:48)
[2017-12-09] MEDS: guaiFENesin ER 600 MG TAB PO (09:25)
[2017-12-09] MEDS: BENZONATATE 100 MG CAP PO (09:25)
[2017-12-09] MEDS: NICOTINE 21MG/24HR 1 EA TRANSDERMAL TD (09:25)
[2017-12-09] MEDS: AZITHROMYCIN 250 MG TAB PO (09:25)
[2017-12-09] MEDS: ENOXAPARIN 40 MG/0.4 ML SYRINGE (J1650) SC (09:25)
[2017-12-09] MEDS: predniSONE 20 MG TAB PO (09:25)
[2017-12-09] MEDS: PANTOPRAZOLE 40MG TAB (PROTONIX) PO (09:26)
[2017-12-09] MEDS: FUROSEMIDE 40 MG TAB PO (09:26)
[2017-12-09] MEDS: traMADol 50 MG TAB PO (11:48)
== END 2017-12-09 14:03 | disposition home or self-care (01) | DRG 189 ==
LOC: M ED 10:45 → M ED INP 14:17 → M MSPAV 15:48
DX: J96.21 Acute and chronic respiratory failure with hypoxia (principal); J44.1 Chronic obstructive pulmonary disease with (acute) exacerbation; Z68.41 Body mass index [BMI] 40.0-44.9, adult; E66.9 Obesity, unspecified; I10 Essential (primary) hypertension; G47.33 Obstructive sleep apnea (adult) (pediatric); D72.829 Elevated white blood cell count, unspecified; K21.9 Gastro-esophageal reflux disease without esophagitis; F17.200 Nicotine dependence, unspecified, uncomplicated; Z79.82 Long term (current) 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; Z79.899 Other long term (current) drug therapy; Z88.0 Allergy status to penicillin; Z88.1 Allergy status to other antibiotic agents; Z88.2 Allergy status to sulfonamides; Z88.8 Allergy status to other drugs, medicaments and biological substances; M19.90 Unspecified osteoarthritis, unspecified site; Z99.81 Dependence on supplemental oxygen; K31.84 Gastroparesis

== ENCOUNTER 2017-12-11 02:45 | Observation (INO) | payer MEDICARE, MEDICAID ==
[2017-12-11 04:02] LABS: BASO # 0.1 10^3/uL (0.0-0.2); BASO % 0.5 % (0.0-1.0); EOS # 0.1 10^3/uL (0.0-0.50); EOS % 0.7 % (0.0-3.0); HEMATOCRIT 49.6 % (36.0-47.0); HEMOGLOBIN 16.1 g/dl (12.0-15.5); IMMATURE GRANULOCYTE % 2.2 % (0-3.0); LYMPH # 2.6 10^3/uL (1.5-4.5); LYMPH % 20.5 % (24.0-44.0); MEAN CORPUSCULAR HEMOGLOBIN 28.4 pg (27.0-33.0); MEAN CORPUSCULAR HGB CONC 32.5 g/dl (32.0-36.5); MEAN CORPUSCULAR VOLUME 87.5 fl (80.0-96.0); MONO # 0.8 10^3/uL (0.0-0.8); MONO % 6.4 % (0.0-5.0); NEUTROPHILS # 8.9 10^3/uL (1.8-7.7); NEUTROPHILS % 69.7 % (36.0-66.0); PLATELET COUNT, AUTOMATED 259 10^3/uL (150-450); RED BLOOD COUNT 5.67 10^6/uL (4.00-5.40); RED CELL DISTRIBUTION WIDTH 14.7 % (11.5-14.5); WHITE BLOOD COUNT 12.8 10^3/uL (4.0-10.0)
[2017-12-11 04:12] LABS: INR 0.84; PROTHROMBIN TIME 11.6 SECONDS (12.1-14.4)
[2017-12-11 04:19] LABS: LACTIC ACID SEPSIS PROTOCOL 1.7 MMOL/L (0.4-2.0)
[2017-12-11 04:21] LABS: ALBUMIN 3.6 GM/DL (3.2-5.2); ALBUMIN/GLOBULIN RATIO 1.13 (1.00-1.93); ALKALINE PHOSPHATASE 68 U/L (45-117); ALT/SGPT 54 U/L (12-78); ANION GAP 8 MEQ/L (8-16); AST/SGOT 20 U/L (7-37); BILIRUBIN,DIRECT 0.1 MG/DL (0.0-0.2); BILIRUBIN,TOTAL 0.3 MG/DL (0.2-1.0); BLOOD UREA NITROGEN 21 MG/DL (7-18); CALCIUM LEVEL 8.5 MG/DL (8.8-10.2); CARBON DIOXIDE LEVEL 31 MEQ/L (21-32); CHLORIDE LEVEL 106 MEQ/L (98-107); CK-MB VALUE MASS < 1.0 NG/ML (<3.6); CPK CREATINE PHOSPHOKINASE 203 U/L (26-192); CREATININE FOR GFR 1.23 MG/DL (0.55-1.30); GLOMERULAR FILTRATION RATE 47.3 (>45); GLUCOSE, FASTING 146 MG/DL (70-100); LIPASE 175 U/L (73-393); MB/CK RELATIVE INDEX 0.49 (< OR =4); POTASSIUM SERUM 3.7 MEQ/L (3.5-5.1); SODIUM LEVEL 145 MEQ/L (136-145); TOTAL PROTEIN 6.8 GM/DL (6.4-8.2); TROPONIN I < 0.02 NG/ML (< 0.10)
[2017-12-11] MEDS ORDERED: ALBUTEROL SULFATE 2.5 MG/0.5 ML INH NEB SOLN INH (05:15)
[2017-12-11] MEDS ORDERED: DOCUSATE SODIUM 100 MG CAP PO (05:15)
[2017-12-11] MEDS ORDERED: traMADol 50 MG TAB PO (05:15)
[2017-12-11] MEDS ORDERED: diphenhydrAMINE 25 MG CAP PO (05:15)
[2017-12-11] MEDS ORDERED: ALBUTEROL 90 MCG/ACT 8GM HFA INHALER INH (05:15)
[2017-12-11] MEDS ORDERED: SYMBICORT 160/4.5MCG INHALER 6GM INH (09:00)
[2017-12-11] MEDS ORDERED: FAMOTIDINE 20 MG TAB PO (09:00)
[2017-12-11] MEDS ORDERED: FUROSEMIDE 40 MG TAB PO (09:00)
[2017-12-11] MEDS ORDERED: ASPIRIN 81 MG ENTERIC TAB PO (09:00)
[2017-12-11] MEDS ORDERED: predniSONE 10 MG TAB PO (09:00)
[2017-12-11] MEDS ORDERED: AZITHROMYCIN 250 MG TAB PO (09:00)
== END 2017-12-11 08:33 | disposition home or self-care (01) ==
LOC: M ED 02:45 → M ED INP 05:05
DX: K62.5 Hemorrhage of anus and rectum (principal); J44.9 Chronic obstructive pulmonary disease, unspecified; G47.33 Obstructive sleep apnea (adult) (pediatric); K21.9 Gastro-esophageal reflux disease without esophagitis; I10 Essential (primary) hypertension; K31.84 Gastroparesis; E66.9 Obesity, unspecified; F17.210 Nicotine dependence, cigarettes, uncomplicated; D72.829 Elevated white blood cell count, unspecified; Z79.82 Long term (current) 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; Z79.52 Long term (current) use of systemic steroids; Z79.899 Other long term (current) drug therapy; Z88.0 Allergy status to penicillin; Z88.8 Allergy status to other drugs, medicaments and biological substances; Z88.2 Allergy status to sulfonamides
CPT/HCPCS: 93005

== ENCOUNTER 2018-02-06 19:36 | Inpatient (IN) | payer MEDICARE, MEDICAID ==
[2018-02-06 20:32] LABS: BASO # 0.1 10^3/uL (0.0-0.2); BASO % 0.6 % (0.0-1.0); EOS # 0.2 10^3/uL (0.0-0.50); EOS % 1.5 % (0.0-3.0); HEMATOCRIT 46.9 % (36.0-47.0); HEMOGLOBIN 14.7 g/dl (12.0-15.5); IMMATURE GRANULOCYTE % 0.6 % (0-3.0); LYMPH # 1.8 10^3/uL (1.5-4.5); LYMPH % 17.3 % (24.0-44.0); MEAN CORPUSCULAR HEMOGLOBIN 28.7 pg (27.0-33.0); MEAN CORPUSCULAR HGB CONC 31.3 g/dl (32.0-36.5); MEAN CORPUSCULAR VOLUME 91.6 fl (80.0-96.0); MONO # 0.6 10^3/uL (0.0-0.8); MONO % 5.5 % (0.0-5.0); NEUTROPHILS # 7.7 10^3/uL (1.8-7.7); NEUTROPHILS % 74.5 % (36.0-66.0); PLATELET COUNT, AUTOMATED 234 10^3/uL (150-450); RED BLOOD COUNT 5.12 10^6/uL (4.00-5.40); RED CELL DISTRIBUTION WIDTH 15.4 % (11.5-14.5); WHITE BLOOD COUNT 10.4 10^3/uL (4.0-10.0)
[2018-02-06 20:53] LABS: LACTIC ACID SEPSIS PROTOCOL 1.6 MMOL/L (0.4-2.0)
[2018-02-06 20:55] LABS: ALBUMIN 3.5 GM/DL (3.2-5.2); ALBUMIN/GLOBULIN RATIO 1.13 (1.00-1.93); ALKALINE PHOSPHATASE 66 U/L (45-117); ALT/SGPT 23 U/L (12-78); ANION GAP 7 MEQ/L (8-16); AST/SGOT 11 U/L (7-37); BILIRUBIN,DIRECT 0.1 MG/DL (0.0-0.2); BILIRUBIN,TOTAL 0.3 MG/DL (0.2-1.0); BLOOD UREA NITROGEN 12 MG/DL (7-18); CALCIUM LEVEL 9.1 MG/DL (8.8-10.2); CARBON DIOXIDE LEVEL 28 MEQ/L (21-32); CHLORIDE LEVEL 111 MEQ/L (98-107); CPK CREATINE PHOSPHOKINASE 80 U/L (26-192); CREATININE FOR GFR 1.07 MG/DL (0.55-1.30); GLOMERULAR FILTRATION RATE 55.5 (>45); GLUCOSE, FASTING 117 MG/DL (70-100); POTASSIUM SERUM 4.2 MEQ/L (3.5-5.1); SODIUM LEVEL 146 MEQ/L (136-145); TOTAL PROTEIN 6.6 GM/DL (6.4-8.2); TROPONIN I < 0.02 NG/ML (< 0.10)
[2018-02-06 21:01] LABS: CK-MB VALUE MASS 1.1 NG/ML (<3.6); MB/CK RELATIVE INDEX 1.37 (< OR =4); NT-PRO BNP 206 PG/ML (<125)
[2018-02-06] MEDS: AZITHROMYCIN 250 MG TAB PO (21:22)
[2018-02-06] MEDS: methylPREDNISolone INJ 125 MG/2 ML VIAL (J2930) IV (21:22)
[2018-02-06] MEDS: IPRATROPIUM 0.5MG/ALBUTEROL 2.5MG INH SOL UD 3ML (DUONEB)(J7620) NEB ×2 (21:34→23:21)
[2018-02-06] MEDS ORDERED: diphenhydrAMINE 25 MG CAP PO (23:30)
[2018-02-06] MEDS ORDERED: LOPERAMIDE 2 MG CAP PO (23:30)
[2018-02-06] MEDS ORDERED: GLUCAGON FOR INJ 1 MG VIAL (J1610) SC (23:45)
[2018-02-06] MEDS ORDERED: ACETAMINOPHEN TAB 650MG DOSE (2X325MG) PO (23:45)
[2018-02-06] MEDS ORDERED: DEXTROSE 50% 50 ML SYRINGE IV (23:45)
[2018-02-06] MEDS ORDERED: GLUCOSE 4 GM CHEW TABLET PO (23:45)
[2018-02-07] MEDS: IPRATROPIUM 0.5MG/ALBUTEROL 2.5MG INH SOL UD 3ML (DUONEB)(J7620) NEB ×7 (01:01→23:34)
[2018-02-07 07:37] LABS: HEMATOCRIT 47.4 % (36.0-47.0); MEAN CORPUSCULAR HEMOGLOBIN 28.7 pg (27.0-33.0); MEAN CORPUSCULAR HGB CONC 31.6 g/dl (32.0-36.5); MEAN CORPUSCULAR VOLUME 90.6 fl (80.0-96.0); PLATELET COUNT, AUTOMATED 239 10^3/uL (150-450); RED BLOOD COUNT 5.23 10^6/uL (4.00-5.40); RED CELL DISTRIBUTION WIDTH 15.4 % (11.5-14.5); WHITE BLOOD COUNT 8.5 10^3/uL (4.0-10.0)
[2018-02-07] MEDS: SYMBICORT 160/4.5MCG INHALER 6GM INH ×2 (07:53→19:29)
[2018-02-07 08:02] LABS: ANION GAP 6 MEQ/L (8-16); BLOOD UREA NITROGEN 9 MG/DL (7-18); CALCIUM LEVEL 9.5 MG/DL (8.8-10.2); CARBON DIOXIDE LEVEL 26 MEQ/L (21-32); CHLORIDE LEVEL 108 MEQ/L (98-107); GLOMERULAR FILTRATION RATE 53.8 (>45); GLUCOSE, FASTING 171 MG/DL (70-100); POTASSIUM SERUM 4.3 MEQ/L (3.5-5.1); SODIUM LEVEL 140 MEQ/L (136-145)
[2018-02-07] MEDS: HumaLOG INSULIN (NovoLOG) PER UNIT SC ×3 (09:37→17:26)
[2018-02-07] MEDS: ASPIRIN 81 MG ENTERIC TAB PO (09:38)
[2018-02-07] MEDS: methylPREDNISolone INJ 40 MG/1 ML VIAL (J2920) IV ×2 (09:38→20:17)
[2018-02-07] MEDS: ENOXAPARIN 40 MG/0.4 ML SYRINGE (J1650) SC (09:38)
[2018-02-07] MEDS: FAMOTIDINE 20 MG TAB PO (09:39)
[2018-02-07] MEDS: FUROSEMIDE 40 MG TAB PO (09:39)
[2018-02-07] MEDS: AZITHROMYCIN 250 MG TAB PO (09:39)
[2018-02-07 11:45] LABS: BEDSIDE GLUCOSE 220 MG/DL (80-115)
[2018-02-07] MEDS: INFLUENZA QUADRIVALENT PF VACCINE 0.5ML SYRINGE (90686) IM (11:57)
[2018-02-07] MEDS: ONDANSETRON 4MG/2ML VIAL (J2405) IV (15:56)
[2018-02-07 17:21] LABS: BEDSIDE GLUCOSE 249 MG/DL (80-115)
[2018-02-07] MEDS: DOCUSATE SODIUM 100 MG CAP PO (20:16)
[2018-02-07] MEDS: traMADol 50 MG TAB PO (20:16)
[2018-02-07 22:33] LABS: BEDSIDE GLUCOSE 238 MG/DL (80-115)
[2018-02-08] MEDS: IPRATROPIUM 0.5MG/ALBUTEROL 2.5MG INH SOL UD 3ML (DUONEB)(J7620) NEB ×5 (01:06→20:00)
[2018-02-08 06:24] LABS: HEMATOCRIT 44.2 % (36.0-47.0); MEAN CORPUSCULAR HEMOGLOBIN 28.5 pg (27.0-33.0); MEAN CORPUSCULAR HGB CONC 31.7 g/dl (32.0-36.5); PLATELET COUNT, AUTOMATED 255 10^3/uL (150-450); RED BLOOD COUNT 4.91 10^6/uL (4.00-5.40); RED CELL DISTRIBUTION WIDTH 15.8 % (11.5-14.5); WHITE BLOOD COUNT 16.8 10^3/uL (4.0-10.0)
[2018-02-08 06:44] LABS: ANION GAP 9 MEQ/L (8-16); BLOOD UREA NITROGEN 17 MG/DL (7-18); CALCIUM LEVEL 9.7 MG/DL (8.8-10.2); CARBON DIOXIDE LEVEL 27 MEQ/L (21-32); CHLORIDE LEVEL 108 MEQ/L (98-107); CREATININE FOR GFR 1.16 MG/DL (0.55-1.30); GLOMERULAR FILTRATION RATE 50.6 (>45); GLUCOSE, FASTING 225 MG/DL (70-100); POTASSIUM SERUM 4.8 MEQ/L (3.5-5.1); SODIUM LEVEL 144 MEQ/L (136-145)
[2018-02-08] MEDS: SYMBICORT 160/4.5MCG INHALER 6GM INH ×2 (07:56→20:21)
[2018-02-08] MEDS: guaiFENesin ER 600 MG TAB PO ×2 (08:49→11:01)
[2018-02-08] MEDS: HumaLOG INSULIN (NovoLOG) PER UNIT SC ×3 (08:49→18:42)
[2018-02-08] MEDS: ENOXAPARIN 40 MG/0.4 ML SYRINGE (J1650) SC (09:00)
[2018-02-08] MEDS: AZITHROMYCIN 250 MG TAB PO (11:00)
[2018-02-08] MEDS: DOCUSATE SODIUM 100 MG CAP PO (11:00)
[2018-02-08] MEDS: ASPIRIN 81 MG ENTERIC TAB PO (11:01)
[2018-02-08] MEDS: FUROSEMIDE 40 MG TAB PO (11:01)
[2018-02-08] MEDS: FAMOTIDINE 20 MG TAB PO (11:01)
[2018-02-08] MEDS: methylPREDNISolone INJ 40 MG/1 ML VIAL (J2920) IV ×2 (11:05→21:09)
[2018-02-08] MEDS: LEVEMIR (INSULIN DETEMIR) 1 UNITS/0.01ML SC (11:05)
[2018-02-08] MEDS: traMADol 50 MG TAB PO (14:45)
[2018-02-08] MEDS: MAGNESIUM CITRATE 300 ML BTL PO (17:09)
[2018-02-08 17:46] LABS: BEDSIDE GLUCOSE 208 MG/DL (80-115)
[2018-02-08 17:46] LABS: BEDSIDE GLUCOSE 219 MG/DL (80-115)
[2018-02-09] MEDS: IPRATROPIUM 0.5MG/ALBUTEROL 2.5MG INH SOL UD 3ML (DUONEB)(J7620) NEB ×6 (00:27→23:58)
[2018-02-09 06:38] LABS: HEMATOCRIT 44.1 % (36.0-47.0); HEMOGLOBIN 13.8 g/dl (12.0-15.5); MEAN CORPUSCULAR HEMOGLOBIN 28.8 pg (27.0-33.0); MEAN CORPUSCULAR HGB CONC 31.3 g/dl (32.0-36.5); MEAN CORPUSCULAR VOLUME 91.9 fl (80.0-96.0); PLATELET COUNT, AUTOMATED 248 10^3/uL (150-450); RED CELL DISTRIBUTION WIDTH 15.7 % (11.5-14.5)
[2018-02-09 06:50] LABS: ANION GAP 12 MEQ/L (8-16); BLOOD UREA NITROGEN 23 MG/DL (7-18); CALCIUM LEVEL 9.2 MG/DL (8.8-10.2); CARBON DIOXIDE LEVEL 26 MEQ/L (21-32); CHLORIDE LEVEL 103 MEQ/L (98-107); CREATININE FOR GFR 1.15 MG/DL (0.55-1.30); GLOMERULAR FILTRATION RATE 51.1 (>45); GLUCOSE, FASTING 292 MG/DL (70-100); POTASSIUM SERUM 4.7 MEQ/L (3.5-5.1); SODIUM LEVEL 141 MEQ/L (136-145)
[2018-02-09] MEDS: guaiFENesin/CODEINE SYRUP 5 ML UDC PO (07:09)
[2018-02-09] MEDS: HumaLOG INSULIN (NovoLOG) PER UNIT SC ×4 (07:54→21:00)
[2018-02-09] MEDS: SYMBICORT 160/4.5MCG INHALER 6GM INH ×2 (08:00→23:58)
[2018-02-09] MEDS: ASPIRIN 81 MG ENTERIC TAB PO (10:35)
[2018-02-09] MEDS: FUROSEMIDE 40 MG TAB PO (10:35)
[2018-02-09] MEDS: AZITHROMYCIN 250 MG TAB PO (10:35)
[2018-02-09] MEDS: DOCUSATE SODIUM 100 MG CAP PO (10:35)
[2018-02-09] MEDS: methylPREDNISolone INJ 40 MG/1 ML VIAL (J2920) IV ×2 (10:36→21:23)
[2018-02-09] MEDS: ENOXAPARIN 40 MG/0.4 ML SYRINGE (J1650) SC (10:36)
[2018-02-09] MEDS: guaiFENesin ER 600 MG TAB PO ×2 (10:36→21:23)
[2018-02-09] MEDS: LEVEMIR (INSULIN DETEMIR) 1 UNITS/0.01ML SC (10:51)
[2018-02-09] MEDS: FAMOTIDINE 20 MG TAB PO (10:51)
[2018-02-09 11:38] LABS: BEDSIDE GLUCOSE 211 MG/DL (80-115)
[2018-02-09] MEDS: FLEET ENEMA PR (16:32)
[2018-02-09 16:56] LABS: BEDSIDE GLUCOSE 262 MG/DL (80-115)
[2018-02-09 21:03] LABS: BEDSIDE GLUCOSE 261 MG/DL (80-115)
[2018-02-09] MEDS ORDERED: GLUCOSE 4 GM CHEW TABLET PO (22:45)
[2018-02-09] MEDS ORDERED: DEXTROSE 50% 50 ML SYRINGE IV (22:45)
[2018-02-09] MEDS ORDERED: GLUCAGON FOR INJ 1 MG VIAL (J1610) SC (22:45)
[2018-02-10] MEDS: IPRATROPIUM 0.5MG/ALBUTEROL 2.5MG INH SOL UD 3ML (DUONEB)(J7620) NEB ×3 (04:00→11:24)
[2018-02-10 06:55] LABS: HEMATOCRIT 44.6 % (36.0-47.0); HEMOGLOBIN 14.3 g/dl (12.0-15.5); MEAN CORPUSCULAR HEMOGLOBIN 28.4 pg (27.0-33.0); MEAN CORPUSCULAR HGB CONC 32.1 g/dl (32.0-36.5); MEAN CORPUSCULAR VOLUME 88.5 fl (80.0-96.0); PLATELET COUNT, AUTOMATED 262 10^3/uL (150-450); RED BLOOD COUNT 5.04 10^6/uL (4.00-5.40); RED CELL DISTRIBUTION WIDTH 15.5 % (11.5-14.5); WHITE BLOOD COUNT 13.5 10^3/uL (4.0-10.0)
[2018-02-10 07:05] LABS: ANION GAP 8 MEQ/L (8-16); BLOOD UREA NITROGEN 24 MG/DL (7-18); CALCIUM LEVEL 8.9 MG/DL (8.8-10.2); CARBON DIOXIDE LEVEL 29 MEQ/L (21-32); CHLORIDE LEVEL 105 MEQ/L (98-107); CREATININE FOR GFR 1.02 MG/DL (0.55-1.30); GLOMERULAR FILTRATION RATE 58.7 (>45); GLUCOSE, FASTING 162 MG/DL (70-100); POTASSIUM SERUM 4.2 MEQ/L (3.5-5.1); SODIUM LEVEL 142 MEQ/L (136-145)
[2018-02-10] MEDS: SYMBICORT 160/4.5MCG INHALER 6GM INH (08:32)
[2018-02-10] MEDS: ENOXAPARIN 40 MG/0.4 ML SYRINGE (J1650) SC (08:35)
[2018-02-10] MEDS: methylPREDNISolone INJ 40 MG/1 ML VIAL (J2920) IV (08:35)
[2018-02-10] MEDS: LEVEMIR (INSULIN DETEMIR) 1 UNITS/0.01ML SC (08:35)
[2018-02-10] MEDS: HumaLOG INSULIN (NovoLOG) PER UNIT SC ×2 (08:35→12:32)
[2018-02-10] MEDS: FAMOTIDINE 20 MG TAB PO (08:36)
[2018-02-10] MEDS: FUROSEMIDE 40 MG TAB PO (08:36)
[2018-02-10] MEDS: AZITHROMYCIN 250 MG TAB PO (08:36)
[2018-02-10] MEDS: guaiFENesin ER 600 MG TAB PO (08:36)
[2018-02-10] MEDS: ASPIRIN 81 MG ENTERIC TAB PO (08:36)
[2018-02-10 12:28] LABS: BEDSIDE GLUCOSE 127 MG/DL (80-115)
[2018-02-10] MEDS: metFORMIN (GLUCOPHAGE) 500 MG TAB PO (12:47)
== END 2018-02-10 14:00 | disposition home health service (06) | DRG 189 ==
LOC: M MS5PR 02-07 01:24 → M ED 19:36 → M ED INP 23:37
DX: J96.01 Acute respiratory failure with hypoxia (principal); J44.1 Chronic obstructive pulmonary disease with (acute) exacerbation; G47.33 Obstructive sleep apnea (adult) (pediatric); K21.9 Gastro-esophageal reflux disease without esophagitis; I10 Essential (primary) hypertension; Z79.899 Other long term (current) drug therapy; Z79.82 Long term (current) 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; Z88.0 Allergy status to penicillin; Z88.1 Allergy status to other antibiotic agents; Z88.2 Allergy status to sulfonamides; Z88.8 Allergy status to other drugs, medicaments and biological substances; Z87.891 Personal history of nicotine dependence; K59.00 Constipation, unspecified

== ENCOUNTER → 2018-04-13 | Outpatient (REF) | payer MEDICARE, MEDICAID ==
[2018-04-13 14:28] LABS: APPEARANCE, URINE CLEAR (CLEAR); BACTERIA, URINE AUTO 1+ (NEGATIVE); BILIRUBIN, URINE AUTO NEGATIVE (NEGATIVE); BLOOD, URINE BLOOD NEGATIVE (NEGATIVE); COLOR, URINE YELLOW (YELLOW); GLUCOSE, URINE (UA) AUTO NEGATIVE (NEGATIVE); KETONE, URINE AUTO TRACE mg/dL (NEGATIVE); LEUKOCYTE ESTERASE, URINE AUTO NEGATIVE (NEGATIVE); MUCUS, URINE SMALL (NEGATIVE); NITRITE, URINE AUTO NEGATIVE (NEGATIVE); PROTEIN, URINE AUTO NEGATIVE (NEGATIVE); RBC, URINE AUTO 1 /HPF (0-3); SPECIFIC GRAVITY URINE AUTO 1.025 (1.002-1.035); SQUAMOUS EPITHELIAL CELL UR AU 1 /HPF (0-6); UROBILINOGEN, URINE AUTO 0.2 mg/dL (0.0-2.0); WBC, URINE AUTO 0 /HPF (0-3)
== END ==
LOC: M LAB REF 14:02
DX: J44.9 Chronic obstructive pulmonary disease, unspecified (principal)
CPT/HCPCS: 81001

== ENCOUNTER 2018-05-21 16:28 | Inpatient (IN) | payer MEDICARE, MEDICAID ==
[2018-05-21] MEDS: ALBUTEROL SULFATE 2.5 MG/0.5 ML INH NEB SOLN INH (16:36)
[2018-05-21] MEDS: IPRATROPIUM 0.5MG/ALBUTEROL 2.5MG INH SOL UD 3ML (DUONEB)(J7620) NEB ×2 (16:36→20:35)
[2018-05-21] MEDS: methylPREDNISolone INJ 125 MG/2 ML VIAL (J2930) IV ×2 (17:15→22:55)
[2018-05-21 17:28] LABS: ABG BASE EXCESS 0.6 (-2.0-2.0); ABG HCO3 25.7 MEQ/L (22.0-26.0); ABG O2 SATURATION 91.6 % (95.0-99.0); ABG PARTIAL PRESSURE CO2 42.7 mmHg (35.0-45.0); ABG PARTIAL PRESSURE O2 59.6 mmHg (75.0-100.0); ABG STANDARD HCO3 24.8 MEQ/L (22.0-26.0); ABG pH (ARTERIAL) 7.397 UNITS (7.350-7.450)
[2018-05-21 17:37] LABS: BASO # 0.1 10^3/uL (0.0-0.2); BASO % 0.6 % (0.0-1.0); EOS # 0.1 10^3/uL (0.0-0.50); HEMATOCRIT 50.1 % (36.0-47.0); HEMOGLOBIN 15.8 g/dl (12.0-15.5); IMMATURE GRANULOCYTE % 0.7 % (0-3.0); LYMPH # 1.4 10^3/uL (1.5-4.5); LYMPH % 13.6 % (24.0-44.0); MEAN CORPUSCULAR HEMOGLOBIN 27.9 pg (27.0-33.0); MEAN CORPUSCULAR HGB CONC 31.5 g/dl (32.0-36.5); MEAN CORPUSCULAR VOLUME 88.5 fl (80.0-96.0); MONO # 0.5 10^3/uL (0.0-0.8); MONO % 4.6 % (0.0-5.0); NEUTROPHILS % 79.5 % (36.0-66.0); PLATELET COUNT, AUTOMATED 231 10^3/uL (150-450); RED BLOOD COUNT 5.66 10^6/uL (4.00-5.40); RED CELL DISTRIBUTION WIDTH 14.2 % (11.5-14.5)
[2018-05-21 17:45] LABS: LACTIC ACID SEPSIS PROTOCOL 2.1 MMOL/L (0.4-2.0)
[2018-05-21 17:47] LABS: INFLUENZA A AMPLIFICATION NEGATIVE (NEGATIVE); INFLUENZA B AMPLIFICATION NEGATIVE (NEGATIVE)
[2018-05-21 18:00] LABS: ALBUMIN 3.7 GM/DL (3.2-5.2); ALBUMIN/GLOBULIN RATIO 1.12 (1.00-1.93); ALKALINE PHOSPHATASE 79 U/L (45-117); ALT/SGPT 25 U/L (12-78); ANION GAP 8 MEQ/L (8-16); AST/SGOT 14 U/L (7-37); BILIRUBIN,DIRECT 0.2 MG/DL (0.0-0.2); BILIRUBIN,TOTAL 0.6 MG/DL (0.2-1.0); BLOOD UREA NITROGEN 13 MG/DL (7-18); CALCIUM LEVEL 9.2 MG/DL (8.8-10.2); CARBON DIOXIDE LEVEL 27 MEQ/L (21-32); CHLORIDE LEVEL 108 MEQ/L (98-107); CK-MB VALUE MASS < 1.0 NG/ML (<3.6); CPK CREATINE PHOSPHOKINASE 83 U/L (26-192); CREATININE FOR GFR 1.09 MG/DL (0.55-1.30); GLOMERULAR FILTRATION RATE 54.3 (>45); GLUCOSE, FASTING 103 MG/DL (70-100); NT-PRO BNP 85 PG/ML (<125); POTASSIUM SERUM 4.2 MEQ/L (3.5-5.1); SODIUM LEVEL 143 MEQ/L (136-145); THYROXINE (T4) 9.4 UG/DL (4.5-12.0); TROPONIN I < 0.02 NG/ML (< 0.10)
[2018-05-21] MEDS ORDERED: CHLORASEPTIC SPRAY MT (19:00)
[2018-05-21] MEDS ORDERED: LOPERAMIDE 2 MG CAP PO (19:00)
[2018-05-21] MEDS: AZITHROMYCIN INJ 500 MG, VIAL MATE ADAPTER 1 EACH in D5W 250 ML IV (20:00)
[2018-05-21] MEDS: ENOXAPARIN 40 MG/0.4 ML SYRINGE (J1650) SC (20:50)
[2018-05-21] MEDS: NICOTINE 21MG/24HR 1 EA TRANSDERMAL TD ×2 (20:50→20:51)
[2018-05-21] MEDS: guaiFENesin ER 600 MG TAB PO (20:50)
[2018-05-22] MEDS: IPRATROPIUM 0.5MG/ALBUTEROL 2.5MG INH SOL UD 3ML (DUONEB)(J7620) NEB ×6 (00:10→18:43)
[2018-05-22] MEDS ORDERED: methylPREDNISolone INJ 125 MG/2 ML VIAL (J2930) IV (01:00)
[2018-05-22 05:13] LABS: HEMATOCRIT 49.2 % (36.0-47.0); HEMOGLOBIN 15.6 g/dl (12.0-15.5); MEAN CORPUSCULAR HEMOGLOBIN 27.9 pg (27.0-33.0); MEAN CORPUSCULAR HGB CONC 31.7 g/dl (32.0-36.5); PLATELET COUNT, AUTOMATED 258 10^3/uL (150-450); RED BLOOD COUNT 5.59 10^6/uL (4.00-5.40); RED CELL DISTRIBUTION WIDTH 14.1 % (11.5-14.5); WHITE BLOOD COUNT 8.3 10^3/uL (4.0-10.0)
[2018-05-22 05:42] LABS: ANION GAP 7 MEQ/L (8-16); BLOOD UREA NITROGEN 12 MG/DL (7-18); CALCIUM LEVEL 9.3 MG/DL (8.8-10.2); CARBON DIOXIDE LEVEL 27 MEQ/L (21-32); CHLORIDE LEVEL 107 MEQ/L (98-107); CPK CREATINE PHOSPHOKINASE 156 U/L (26-192); GLOMERULAR FILTRATION RATE 53.8 (>45); GLUCOSE, FASTING 161 MG/DL (70-100); MAGNESIUM LEVEL 2.3 MG/DL (1.8-2.4); MB/CK RELATIVE INDEX 0.77 (< OR =4); POTASSIUM SERUM 4.6 MEQ/L (3.5-5.1); SODIUM LEVEL 141 MEQ/L (136-145); TROPONIN I < 0.02 NG/ML (< 0.10)
[2018-05-22] MEDS: FUROSEMIDE 40 MG TAB PO (08:15)
[2018-05-22] MEDS: ASPIRIN 81 MG ENTERIC TAB PO (08:15)
[2018-05-22] MEDS: SUCRALFATE SUSP 1GM/10ML UD PO ×3 (08:16→18:12)
[2018-05-22] MEDS: guaiFENesin ER 600 MG TAB PO ×2 (08:16→20:23)
[2018-05-22] MEDS: FAMOTIDINE 20 MG TAB PO (08:16)
[2018-05-22] MEDS: PANTOPRAZOLE 40MG TAB (PROTONIX) PO (08:16)
[2018-05-22] MEDS: methylPREDNISolone INJ 125 MG/2 ML VIAL (J2930) IV ×3 (08:16→22:59)
[2018-05-22] MEDS: IBUPROFEN 400 MG TAB PO (10:26)
[2018-05-22] MEDS: NICOTINE 21MG/24HR 1 EA TRANSDERMAL TD (10:27)
[2018-05-22] MEDS: traMADol 50 MG TAB PO (14:43)
[2018-05-22] MEDS: ENOXAPARIN 40 MG/0.4 ML SYRINGE (J1650) SC (20:23)
[2018-05-22] MEDS: AZITHROMYCIN INJ 500 MG, VIAL MATE ADAPTER 1 EACH in D5W 250 ML IV (20:23)
[2018-05-23] MEDS: IPRATROPIUM 0.5MG/ALBUTEROL 2.5MG INH SOL UD 3ML (DUONEB)(J7620) NEB ×7 (00:35→23:50)
[2018-05-23] MEDS: traMADol 50 MG TAB PO ×2 (04:25→13:28)
[2018-05-23 06:39] LABS: HEMATOCRIT 49.2 % (36.0-47.0); HEMOGLOBIN 15.1 g/dl (12.0-15.5); MEAN CORPUSCULAR HEMOGLOBIN 27.4 pg (27.0-33.0); MEAN CORPUSCULAR HGB CONC 30.7 g/dl (32.0-36.5); MEAN CORPUSCULAR VOLUME 89.3 fl (80.0-96.0); PLATELET COUNT, AUTOMATED 249 10^3/uL (150-450); RED BLOOD COUNT 5.51 10^6/uL (4.00-5.40); RED CELL DISTRIBUTION WIDTH 14.4 % (11.5-14.5); WHITE BLOOD COUNT 15.6 10^3/uL (4.0-10.0)
[2018-05-23 07:02] LABS: ANION GAP 6 MEQ/L (8-16); BLOOD UREA NITROGEN 22 MG/DL (7-18); CALCIUM LEVEL 9.3 MG/DL (8.8-10.2); CARBON DIOXIDE LEVEL 28 MEQ/L (21-32); CHLORIDE LEVEL 108 MEQ/L (98-107); CREATININE FOR GFR 1.34 MG/DL (0.55-1.30); GLOMERULAR FILTRATION RATE 42.8 (>45); GLUCOSE, FASTING 215 MG/DL (70-100); MAGNESIUM LEVEL 2.4 MG/DL (1.8-2.4); POTASSIUM SERUM 4.4 MEQ/L (3.5-5.1); SODIUM LEVEL 142 MEQ/L (136-145)
[2018-05-23] MEDS: guaiFENesin ER 600 MG TAB PO ×2 (08:11→20:14)
[2018-05-23] MEDS: IBUPROFEN 400 MG TAB PO (08:11)
[2018-05-23] MEDS: SUCRALFATE SUSP 1GM/10ML UD PO ×3 (08:11→17:18)
[2018-05-23] MEDS: methylPREDNISolone INJ 125 MG/2 ML VIAL (J2930) IV ×2 (08:11→22:31)
[2018-05-23] MEDS: PANTOPRAZOLE 40MG TAB (PROTONIX) PO (08:11)
[2018-05-23] MEDS: ASPIRIN 81 MG ENTERIC TAB PO (08:12)
[2018-05-23] MEDS: FAMOTIDINE 20 MG TAB PO (08:12)
[2018-05-23] MEDS: NICOTINE 21MG/24HR 1 EA TRANSDERMAL TD (12:53)
[2018-05-23] MEDS: SODIUM CHLORIDE HYPERTONIC 3% 15ML NEB SOL INH (15:13)
[2018-05-23] MEDS: ENOXAPARIN 40 MG/0.4 ML SYRINGE (J1650) SC (20:14)
[2018-05-23] MEDS: AZITHROMYCIN INJ 500 MG, VIAL MATE ADAPTER 1 EACH in D5W 250 ML IV (20:15)
[2018-05-23] MEDS ORDERED: methylPREDNISolone INJ 40 MG/1 ML VIAL (J2920) As Ordered (22:23)
[2018-05-23] MEDS: ALPRAZolam 0.25 MG TAB PO (22:30)
[2018-05-23 22:39] LABS: ABG BASE EXCESS -4.5 (-2.0-2.0); ABG HCO3 23.3 MEQ/L (22.0-26.0); ABG O2 SATURATION 91.5 % (95.0-99.0); ABG PARTIAL PRESSURE CO2 52.8 mmHg (35.0-45.0); ABG PARTIAL PRESSURE O2 66.4 mmHg (75.0-100.0); ABG STANDARD HCO3 20.7 MEQ/L (22.0-26.0); ABG TOTAL CO2 24.9 MEQ/L (23.0-31.0); ABG pH (ARTERIAL) 7.262 UNITS (7.350-7.450)
[2018-05-23 23:17] LABS: CPK CREATINE PHOSPHOKINASE 407 U/L (26-192); MB/CK RELATIVE INDEX 0.71 (< OR =4); TROPONIN I < 0.02 NG/ML (< 0.10)
[2018-05-24] MEDS: ALBUTEROL SULFATE 2.5 MG/0.5 ML INH NEB SOLN INH (02:14)
[2018-05-24] MEDS: ONDANSETRON 4MG/2ML VIAL (J2405) IV ×2 (02:47→21:17)
[2018-05-24] MEDS: ALPRAZolam 0.25 MG TAB PO ×3 (02:47→17:42)
[2018-05-24] MEDS: IPRATROPIUM 0.5MG/ALBUTEROL 2.5MG INH SOL UD 3ML (DUONEB)(J7620) NEB ×4 (04:52→20:00)
[2018-05-24 05:27] LABS: HEMOGLOBIN 14.5 g/dl (12.0-15.5); MEAN CORPUSCULAR HEMOGLOBIN 27.7 pg (27.0-33.0); MEAN CORPUSCULAR HGB CONC 30.9 g/dl (32.0-36.5); MEAN CORPUSCULAR VOLUME 89.9 fl (80.0-96.0); PLATELET COUNT, AUTOMATED 237 10^3/uL (150-450); RED BLOOD COUNT 5.23 10^6/uL (4.00-5.40); RED CELL DISTRIBUTION WIDTH 14.6 % (11.5-14.5); WHITE BLOOD COUNT 15.8 10^3/uL (4.0-10.0)
[2018-05-24 05:46] LABS: ANION GAP 4 MEQ/L (8-16); BLOOD UREA NITROGEN 24 MG/DL (7-18); CALCIUM LEVEL 9.1 MG/DL (8.8-10.2); CARBON DIOXIDE LEVEL 30 MEQ/L (21-32); CHLORIDE LEVEL 109 MEQ/L (98-107); CPK CREATINE PHOSPHOKINASE 321 U/L (26-192); CREATININE FOR GFR 1.06 MG/DL (0.55-1.30); GLOMERULAR FILTRATION RATE 56.1 (>45); GLUCOSE, FASTING 187 MG/DL (70-100); MAGNESIUM LEVEL 2.6 MG/DL (1.8-2.4); MB/CK RELATIVE INDEX 1.37 (< OR =4); SODIUM LEVEL 143 MEQ/L (136-145); TROPONIN I 0.07 NG/ML (< 0.10)
[2018-05-24 06:05] LABS: ABG BASE EXCESS 0.9 (-2.0-2.0); ABG HCO3 28.8 MEQ/L (22.0-26.0); ABG O2 SATURATION 91.9 % (95.0-99.0); ABG PARTIAL PRESSURE CO2 59.2 mmHg (35.0-45.0); ABG PARTIAL PRESSURE O2 63.7 mmHg (75.0-100.0); ABG STANDARD HCO3 25.1 MEQ/L (22.0-26.0); ABG TOTAL CO2 30.6 MEQ/L (23.0-31.0); ABG pH (ARTERIAL) 7.305 UNITS (7.350-7.450)
[2018-05-24] MEDS: BUDESONIDE 0.5 MG/2 ML INHALATION SUSPENSION INH (08:00)
[2018-05-24] MEDS: PANTOPRAZOLE 40MG TAB (PROTONIX) PO (08:02)
[2018-05-24] MEDS: guaiFENesin ER 600 MG TAB PO ×2 (08:03→21:11)
[2018-05-24] MEDS: SUCRALFATE SUSP 1GM/10ML UD PO ×3 (08:03→17:39)
[2018-05-24] MEDS: FAMOTIDINE 20 MG TAB PO (08:03)
[2018-05-24] MEDS: ASPIRIN 81 MG ENTERIC TAB PO (08:03)
[2018-05-24] MEDS: IBUPROFEN 400 MG TAB PO (09:50)
[2018-05-24] MEDS: methylPREDNISolone INJ 125 MG/2 ML VIAL (J2930) IV ×2 (09:50→17:39)
[2018-05-24] MEDS: NICOTINE 21MG/24HR 1 EA TRANSDERMAL TD (09:50)
[2018-05-24] MEDS: CEFDINIR 300 MG CAP (OMNICEF) PO ×2 (09:51→21:12)
[2018-05-24 10:59] LABS: CPK CREATINE PHOSPHOKINASE 250 U/L (26-192); MB/CK RELATIVE INDEX 1.44 (< OR =4); TROPONIN I 0.08 NG/ML (< 0.10)
[2018-05-24 12:23] LABS: ABG HCO3 30.7 MEQ/L (22.0-26.0); ABG O2 SATURATION 93.2 % (95.0-99.0); ABG PARTIAL PRESSURE CO2 59.4 mmHg (35.0-45.0); ABG PARTIAL PRESSURE O2 66.5 mmHg (75.0-100.0); ABG TOTAL CO2 32.5 MEQ/L (23.0-31.0); ABG pH (ARTERIAL) 7.331 UNITS (7.350-7.450)
[2018-05-24] MEDS: FORMOTEROL FUMARATE 20 MCG/2 ML INHALATION SOLUTION (PERFOROMIST) INH (15:20)
[2018-05-24 18:28] LABS: ABG BASE EXCESS 1.4 (-2.0-2.0); ABG HCO3 28.8 MEQ/L (22.0-26.0); ABG O2 SATURATION 95.1 % (95.0-99.0); ABG PARTIAL PRESSURE CO2 56.3 mmHg (35.0-45.0); ABG PARTIAL PRESSURE O2 76.3 mmHg (75.0-100.0); ABG STANDARD HCO3 25.7 MEQ/L (22.0-26.0); ABG TOTAL CO2 30.5 MEQ/L (23.0-31.0); ABG pH (ARTERIAL) 7.326 UNITS (7.350-7.450)
[2018-05-24] MEDS: MIRALAX *UNIT DOSE* 17GM PACKET PO (19:29)
[2018-05-24] MEDS ORDERED: methylPREDNISolone INJ 125 MG/2 ML VIAL (J2930) IV (20:00)
[2018-05-24] MEDS: AZITHROMYCIN INJ 500 MG, VIAL MATE ADAPTER 1 EACH in D5W 250 ML IV (20:30)
[2018-05-24] MEDS: SENOKOT S TAB PO (21:11)
[2018-05-24] MEDS: ENOXAPARIN 40 MG/0.4 ML SYRINGE (J1650) SC (21:12)
[2018-05-25] MEDS: BUDESONIDE 0.5 MG/2 ML INHALATION SUSPENSION INH ×3 (00:01→21:22)
[2018-05-25] MEDS: FORMOTEROL FUMARATE 20 MCG/2 ML INHALATION SOLUTION (PERFOROMIST) INH ×3 (00:01→21:21)
[2018-05-25] MEDS: ALPRAZolam 0.25 MG TAB PO (00:46)
[2018-05-25] MEDS: SIMETHICONE 80 MG CHEW TAB PO ×2 (00:47→21:50)
[2018-05-25] MEDS: IPRATROPIUM 0.5MG/ALBUTEROL 2.5MG INH SOL UD 3ML (DUONEB)(J7620) NEB ×6 (03:12→20:00)
[2018-05-25 04:59] LABS: HEMATOCRIT 47.5 % (36.0-47.0); HEMOGLOBIN 14.4 g/dl (12.0-15.5); MEAN CORPUSCULAR HEMOGLOBIN 27.6 pg (27.0-33.0); MEAN CORPUSCULAR HGB CONC 30.3 g/dl (32.0-36.5); MEAN CORPUSCULAR VOLUME 91.2 fl (80.0-96.0); PLATELET COUNT, AUTOMATED 219 10^3/uL (150-450); RED BLOOD COUNT 5.21 10^6/uL (4.00-5.40); RED CELL DISTRIBUTION WIDTH 14.6 % (11.5-14.5); WHITE BLOOD COUNT 11.6 10^3/uL (4.0-10.0)
[2018-05-25 05:18] LABS: ANION GAP 2 MEQ/L (8-16); BLOOD UREA NITROGEN 27 MG/DL (7-18); CALCIUM LEVEL 9.1 MG/DL (8.8-10.2); CARBON DIOXIDE LEVEL 33 MEQ/L (21-32); CHLORIDE LEVEL 107 MEQ/L (98-107); CREATININE FOR GFR 1.06 MG/DL (0.55-1.30); GLOMERULAR FILTRATION RATE 56.1 (>45); GLUCOSE, FASTING 198 MG/DL (70-100); MAGNESIUM LEVEL 2.8 MG/DL (1.8-2.4); SODIUM LEVEL 142 MEQ/L (136-145)
[2018-05-25 07:10] LABS: ABG BASE EXCESS 3.1 (-2.0-2.0); ABG HCO3 32.1 MEQ/L (22.0-26.0); ABG O2 SATURATION 95.2 % (95.0-99.0); ABG PARTIAL PRESSURE O2 78.1 mmHg (75.0-100.0); ABG STANDARD HCO3 27.2 MEQ/L (22.0-26.0); ABG TOTAL CO2 34.2 MEQ/L (23.0-31.0); ABG pH (ARTERIAL) 7.286 UNITS (7.350-7.450)
[2018-05-25 07:11] LABS: ABG PARTIAL PRESSURE CO2 68.9 mmHg (35.0-45.0)
[2018-05-25 08:16] LABS: NT-PRO BNP 403 PG/ML (<125)
[2018-05-25] MEDS: MIRALAX *UNIT DOSE* 17GM PACKET PO (08:43)
[2018-05-25] MEDS: CEFDINIR 300 MG CAP (OMNICEF) PO ×2 (08:43→21:24)
[2018-05-25] MEDS: ASPIRIN 81 MG ENTERIC TAB PO (08:43)
[2018-05-25] MEDS: SENOKOT S TAB PO ×2 (08:43→21:00)
[2018-05-25] MEDS: NICOTINE 21MG/24HR 1 EA TRANSDERMAL TD (08:43)
[2018-05-25] MEDS: FAMOTIDINE 20 MG TAB PO (08:43)
[2018-05-25] MEDS: PANTOPRAZOLE 40MG TAB (PROTONIX) PO (08:43)
[2018-05-25] MEDS: SUCRALFATE SUSP 1GM/10ML UD PO ×3 (08:43→17:34)
[2018-05-25] MEDS: guaiFENesin ER 600 MG TAB PO ×2 (08:43→21:24)
[2018-05-25] MEDS: methylPREDNISolone INJ 125 MG/2 ML VIAL (J2930) IV ×3 (08:44→17:35)
[2018-05-25] MEDS: LACTULOSE 20 GM/30 ML SYRUP UD PO ×3 (08:44→17:35)
[2018-05-25] MEDS: diphenhydrAMINE 25 MG CAP PO (17:35)
[2018-05-25] MEDS: traMADol 50 MG TAB PO (17:35)
[2018-05-25] MEDS: AZITHROMYCIN INJ 500 MG, VIAL MATE ADAPTER 1 EACH in D5W 250 ML IV (20:27)
[2018-05-25] MEDS: ENOXAPARIN 40 MG/0.4 ML SYRINGE (J1650) SC (21:24)
[2018-05-26] MEDS: IPRATROPIUM 0.5MG/ALBUTEROL 2.5MG INH SOL UD 3ML (DUONEB)(J7620) NEB ×6 (00:12→20:00)
[2018-05-26] MEDS: diphenhydrAMINE 25 MG CAP PO ×2 (00:27→21:20)
[2018-05-26] MEDS: methylPREDNISolone INJ 125 MG/2 ML VIAL (J2930) IV ×2 (00:27→08:39)
[2018-05-26 04:59] LABS: HEMATOCRIT 47.3 % (36.0-47.0); HEMOGLOBIN 14.3 g/dl (12.0-15.5); MEAN CORPUSCULAR HEMOGLOBIN 27.6 pg (27.0-33.0); MEAN CORPUSCULAR HGB CONC 30.2 g/dl (32.0-36.5); MEAN CORPUSCULAR VOLUME 91.3 fl (80.0-96.0); PLATELET COUNT, AUTOMATED 206 10^3/uL (150-450); RED BLOOD COUNT 5.18 10^6/uL (4.00-5.40); RED CELL DISTRIBUTION WIDTH 14.3 % (11.5-14.5); WHITE BLOOD COUNT 9.5 10^3/uL (4.0-10.0)
[2018-05-26 05:21] LABS: ANION GAP 4 MEQ/L (8-16); BLOOD UREA NITROGEN 24 MG/DL (7-18); CALCIUM LEVEL 8.6 MG/DL (8.8-10.2); CARBON DIOXIDE LEVEL 32 MEQ/L (21-32); CHLORIDE LEVEL 103 MEQ/L (98-107); CREATININE FOR GFR 1.06 MG/DL (0.55-1.30); GLOMERULAR FILTRATION RATE 56.1 (>45); GLUCOSE, FASTING 169 MG/DL (70-100); MAGNESIUM LEVEL 2.8 MG/DL (1.8-2.4); POTASSIUM SERUM 4.7 MEQ/L (3.5-5.1); SODIUM LEVEL 139 MEQ/L (136-145)
[2018-05-26] MEDS: LACTULOSE 20 GM/30 ML SYRUP UD PO ×3 (06:00→11:51)
[2018-05-26] MEDS: ALBUTEROL SULFATE 2.5 MG/0.5 ML INH NEB SOLN INH (08:00)
[2018-05-26] MEDS: FORMOTEROL FUMARATE 20 MCG/2 ML INHALATION SOLUTION (PERFOROMIST) INH ×2 (08:02→20:42)
[2018-05-26] MEDS: BUDESONIDE 0.5 MG/2 ML INHALATION SUSPENSION INH ×2 (08:04→20:42)
[2018-05-26 08:06] LABS: ABG BASE EXCESS 5.6 (-2.0-2.0); ABG HCO3 32.7 MEQ/L (22.0-26.0); ABG O2 SATURATION 92.9 % (95.0-99.0); ABG PARTIAL PRESSURE O2 65.1 mmHg (75.0-100.0); ABG STANDARD HCO3 29.4 MEQ/L (22.0-26.0); ABG TOTAL CO2 34.4 MEQ/L (23.0-31.0); ABG pH (ARTERIAL) 7.376 UNITS (7.350-7.450)
[2018-05-26] MEDS: SUCRALFATE SUSP 1GM/10ML UD PO ×3 (08:37→16:11)
[2018-05-26] MEDS: ASPIRIN 81 MG ENTERIC TAB PO (08:38)
[2018-05-26] MEDS: MIRALAX *UNIT DOSE* 17GM PACKET PO (08:38)
[2018-05-26] MEDS: SENOKOT S TAB PO ×2 (08:38→20:27)
[2018-05-26] MEDS: SIMETHICONE 80 MG CHEW TAB PO ×2 (08:38→16:12)
[2018-05-26] MEDS: PANTOPRAZOLE 40MG TAB (PROTONIX) PO (08:38)
[2018-05-26] MEDS: guaiFENesin ER 600 MG TAB PO ×2 (08:38→20:28)
[2018-05-26] MEDS: FAMOTIDINE 20 MG TAB PO (08:39)
[2018-05-26] MEDS: NICOTINE 21MG/24HR 1 EA TRANSDERMAL TD (08:39)
[2018-05-26] MEDS: CEFDINIR 300 MG CAP (OMNICEF) PO ×2 (10:39→20:28)
[2018-05-26] MEDS: SODIUM CHLORIDE HYPERTONIC 3% 15ML NEB SOL INH ×2 (14:31→20:42)
[2018-05-26] MEDS: methylPREDNISolone INJ 40 MG/1 ML VIAL (J2920) IV (16:12)
[2018-05-26] MEDS: traMADol 50 MG TAB PO (18:12)
[2018-05-26] MEDS: ONDANSETRON 4MG/2ML VIAL (J2405) IV (19:33)
[2018-05-26] MEDS: AZITHROMYCIN INJ 500 MG, VIAL MATE ADAPTER 1 EACH in D5W 250 ML IV (19:35)
[2018-05-26] MEDS: ENOXAPARIN 40 MG/0.4 ML SYRINGE (J1650) SC (20:27)
[2018-05-26] MEDS: METOCLOPRAMIDE INJ 10MG/2ML VIAL (J2765) IV (20:27)
[2018-05-26] MEDS: OMEPRAZOLE 20 MG CAP PO (20:28)
[2018-05-27] MEDS: methylPREDNISolone INJ 40 MG/1 ML VIAL (J2920) IV ×3 (00:06→16:32)
[2018-05-27] MEDS: IPRATROPIUM 0.5MG/ALBUTEROL 2.5MG INH SOL UD 3ML (DUONEB)(J7620) NEB ×4 (02:36→20:00)
[2018-05-27] MEDS: SODIUM CHLORIDE HYPERTONIC 3% 15ML NEB SOL INH ×4 (02:36→20:20)
[2018-05-27 04:24] LABS: HEMATOCRIT 47.2 % (36.0-47.0); HEMOGLOBIN 14.4 g/dl (12.0-15.5); MEAN CORPUSCULAR HEMOGLOBIN 27.4 pg (27.0-33.0); MEAN CORPUSCULAR HGB CONC 30.5 g/dl (32.0-36.5); MEAN CORPUSCULAR VOLUME 89.9 fl (80.0-96.0); PLATELET COUNT, AUTOMATED 210 10^3/uL (150-450); RED BLOOD COUNT 5.25 10^6/uL (4.00-5.40); RED CELL DISTRIBUTION WIDTH 14.1 % (11.5-14.5); WHITE BLOOD COUNT 11.1 10^3/uL (4.0-10.0)
[2018-05-27 04:46] LABS: ANION GAP 4 MEQ/L (8-16); BLOOD UREA NITROGEN 27 MG/DL (7-18); CALCIUM LEVEL 8.4 MG/DL (8.8-10.2); CARBON DIOXIDE LEVEL 33 MEQ/L (21-32); CHLORIDE LEVEL 103 MEQ/L (98-107); CREATININE FOR GFR 1.13 MG/DL (0.55-1.30); GLOMERULAR FILTRATION RATE 52.1 (>45); GLUCOSE, FASTING 209 MG/DL (70-100); MAGNESIUM LEVEL 2.9 MG/DL (1.8-2.4); POTASSIUM SERUM 4.8 MEQ/L (3.5-5.1); SODIUM LEVEL 140 MEQ/L (136-145)
[2018-05-27] MEDS: BUDESONIDE 0.5 MG/2 ML INHALATION SUSPENSION INH ×2 (07:44→20:20)
[2018-05-27] MEDS: FORMOTEROL FUMARATE 20 MCG/2 ML INHALATION SOLUTION (PERFOROMIST) INH ×2 (07:44→20:19)
[2018-05-27 07:50] LABS: ABG BASE EXCESS 2.2 (-2.0-2.0); ABG HCO3 27.8 MEQ/L (22.0-26.0); ABG O2 SATURATION 92.6 % (95.0-99.0); ABG PARTIAL PRESSURE O2 66.2 mmHg (75.0-100.0); ABG STANDARD HCO3 26.3 MEQ/L (22.0-26.0); ABG TOTAL CO2 29.3 MEQ/L (23.0-31.0)
[2018-05-27] MEDS: SUCRALFATE SUSP 1GM/10ML UD PO ×3 (08:36→16:32)
[2018-05-27] MEDS: SENOKOT S TAB PO ×2 (08:37→21:00)
[2018-05-27] MEDS: PANTOPRAZOLE 40MG TAB (PROTONIX) PO (08:37)
[2018-05-27] MEDS: FAMOTIDINE 20 MG TAB PO (08:37)
[2018-05-27] MEDS: guaiFENesin ER 600 MG TAB PO ×2 (08:37→20:54)
[2018-05-27] MEDS: ASPIRIN 81 MG ENTERIC TAB PO (08:37)
[2018-05-27] MEDS: MIRALAX *UNIT DOSE* 17GM PACKET PO (08:37)
[2018-05-27] MEDS: CEFDINIR 300 MG CAP (OMNICEF) PO ×2 (08:37→20:54)
[2018-05-27] MEDS: NICOTINE 21MG/24HR 1 EA TRANSDERMAL TD (08:57)
[2018-05-27 09:46] LABS: CONTROL LINE HPYORI INT CTR LINE PRESENT; H PYLORI QUALITATIVE IgG NEGATIVE (NEGATIVE)
[2018-05-27] MEDS: FUROSEMIDE 40 MG/4 ML VIAL (J1940) IV (11:15)
[2018-05-27] MEDS: SIMETHICONE 80 MG CHEW TAB PO (15:53)
[2018-05-27] MEDS: AZITHROMYCIN INJ 500 MG, VIAL MATE ADAPTER 1 EACH in D5W 250 ML IV (20:53)
[2018-05-27] MEDS: ENOXAPARIN 40 MG/0.4 ML SYRINGE (J1650) SC (20:54)
[2018-05-27] MEDS: diphenhydrAMINE 25 MG CAP PO (20:59)
[2018-05-28] MEDS: methylPREDNISolone INJ 40 MG/1 ML VIAL (J2920) IV ×2 (00:43→13:31)
[2018-05-28] MEDS: IPRATROPIUM 0.5MG/ALBUTEROL 2.5MG INH SOL UD 3ML (DUONEB)(J7620) NEB ×5 (02:13→22:17)
[2018-05-28] MEDS: SODIUM CHLORIDE HYPERTONIC 3% 15ML NEB SOL INH ×4 (02:13→20:00)
[2018-05-28 04:45] LABS: HEMATOCRIT 48.1 % (36.0-47.0); HEMOGLOBIN 15.1 g/dl (12.0-15.5); MEAN CORPUSCULAR HEMOGLOBIN 28.1 pg (27.0-33.0); MEAN CORPUSCULAR HGB CONC 31.4 g/dl (32.0-36.5); MEAN CORPUSCULAR VOLUME 89.4 fl (80.0-96.0); PLATELET COUNT, AUTOMATED 228 10^3/uL (150-450); RED BLOOD COUNT 5.38 10^6/uL (4.00-5.40); WHITE BLOOD COUNT 13.6 10^3/uL (4.0-10.0)
[2018-05-28 04:54] LABS: ANION GAP 2 MEQ/L (8-16); BLOOD UREA NITROGEN 31 MG/DL (7-18); CALCIUM LEVEL 8.4 MG/DL (8.8-10.2); CARBON DIOXIDE LEVEL 36 MEQ/L (21-32); CHLORIDE LEVEL 101 MEQ/L (98-107); CREATININE FOR GFR 1.24 MG/DL (0.55-1.30); GLOMERULAR FILTRATION RATE 46.8 (>45); GLUCOSE, FASTING 215 MG/DL (70-100); MAGNESIUM LEVEL 2.8 MG/DL (1.8-2.4); POTASSIUM SERUM 4.4 MEQ/L (3.5-5.1); SODIUM LEVEL 139 MEQ/L (136-145)
[2018-05-28] MEDS: FORMOTEROL FUMARATE 20 MCG/2 ML INHALATION SOLUTION (PERFOROMIST) INH ×2 (08:16→20:14)
[2018-05-28] MEDS: BUDESONIDE 0.5 MG/2 ML INHALATION SUSPENSION INH ×2 (08:16→20:14)
[2018-05-28] MEDS: SENOKOT S TAB PO ×2 (09:00→22:01)
[2018-05-28] MEDS: MIRALAX *UNIT DOSE* 17GM PACKET PO (09:00)
[2018-05-28] MEDS: ASPIRIN 81 MG ENTERIC TAB PO (09:53)
[2018-05-28] MEDS: CEFDINIR 300 MG CAP (OMNICEF) PO (09:53)
[2018-05-28] MEDS: guaiFENesin ER 600 MG TAB PO ×2 (09:53→22:02)
[2018-05-28] MEDS: SUCRALFATE SUSP 1GM/10ML UD PO ×3 (09:53→17:31)
[2018-05-28] MEDS: FAMOTIDINE 20 MG TAB PO (09:54)
[2018-05-28] MEDS: PANTOPRAZOLE 40MG TAB (PROTONIX) PO (09:54)
[2018-05-28] MEDS: FUROSEMIDE 40 MG/4 ML VIAL (J1940) IV (09:54)
[2018-05-28] MEDS: NICOTINE 21MG/24HR 1 EA TRANSDERMAL TD (09:58)
[2018-05-28] MEDS: diphenhydrAMINE 25 MG CAP PO (18:28)
[2018-05-28] MEDS: ACETAMINOPHEN TAB 650MG DOSE (2X325MG) PO (18:29)
[2018-05-28] MEDS: ENOXAPARIN 40 MG/0.4 ML SYRINGE (J1650) SC (22:00)
[2018-05-29] MEDS: methylPREDNISolone INJ 40 MG/1 ML VIAL (J2920) IV ×2 (01:37→13:35)
[2018-05-29] MEDS: IPRATROPIUM 0.5MG/ALBUTEROL 2.5MG INH SOL UD 3ML (DUONEB)(J7620) NEB ×5 (02:00→23:55)
[2018-05-29] MEDS: ONDANSETRON 4MG/2ML VIAL (J2405) IV ×2 (07:01→19:30)
[2018-05-29] MEDS: FORMOTEROL FUMARATE 20 MCG/2 ML INHALATION SOLUTION (PERFOROMIST) INH ×2 (07:48→20:06)
[2018-05-29] MEDS: SODIUM CHLORIDE HYPERTONIC 3% 15ML NEB SOL INH ×4 (07:48→23:55)
[2018-05-29] MEDS: BUDESONIDE 0.5 MG/2 ML INHALATION SUSPENSION INH ×2 (07:49→20:06)
[2018-05-29 07:52] LABS: BASO # 0.1 10^3/uL (0.0-0.2); BASO % 0.5 % (0.0-1.0); HEMATOCRIT 50.2 % (36.0-47.0); HEMOGLOBIN 15.9 g/dl (12.0-15.5); IMMATURE GRANULOCYTE % 3.2 % (0-3.0); LYMPH # 1.5 10^3/uL (1.5-4.5); LYMPH % 9.7 % (24.0-44.0); MEAN CORPUSCULAR HEMOGLOBIN 28.1 pg (27.0-33.0); MEAN CORPUSCULAR HGB CONC 31.7 g/dl (32.0-36.5); MEAN CORPUSCULAR VOLUME 88.7 fl (80.0-96.0); MONO # 0.4 10^3/uL (0.0-0.8); MONO % 2.6 % (0.0-5.0); NEUTROPHILS # 13.1 10^3/uL (1.8-7.7); PLATELET COUNT, AUTOMATED 235 10^3/uL (150-450); RED BLOOD COUNT 5.66 10^6/uL (4.00-5.40); RED CELL DISTRIBUTION WIDTH 13.8 % (11.5-14.5); WHITE BLOOD COUNT 15.6 10^3/uL (4.0-10.0)
[2018-05-29 08:11] LABS: ALBUMIN/GLOBULIN RATIO 0.91 (1.00-1.93); ALKALINE PHOSPHATASE 48 U/L (45-117); ALT/SGPT 96 U/L (12-78); ANION GAP 2 MEQ/L (8-16); AST/SGOT 15 U/L (7-37); BILIRUBIN,TOTAL 0.4 MG/DL (0.2-1.0); BLOOD UREA NITROGEN 33 MG/DL (7-18); CALCIUM LEVEL 8.7 MG/DL (8.8-10.2); CARBON DIOXIDE LEVEL 36 MEQ/L (21-32); CHLORIDE LEVEL 102 MEQ/L (98-107); CREATININE FOR GFR 1.14 MG/DL (0.55-1.30); GLOMERULAR FILTRATION RATE 51.6 (>45); GLUCOSE, FASTING 213 MG/DL (70-100); MAGNESIUM LEVEL 2.8 MG/DL (1.8-2.4); POTASSIUM SERUM 4.2 MEQ/L (3.5-5.1); SODIUM LEVEL 140 MEQ/L (136-145); TOTAL PROTEIN 6.3 GM/DL (6.4-8.2)
[2018-05-29] MEDS: MIRALAX *UNIT DOSE* 17GM PACKET PO (09:00)
[2018-05-29] MEDS: SENOKOT S TAB PO ×2 (09:00→19:27)
[2018-05-29] MEDS: ASPIRIN 81 MG ENTERIC TAB PO (09:38)
[2018-05-29] MEDS: PANTOPRAZOLE 40MG TAB (PROTONIX) PO (09:38)
[2018-05-29] MEDS: FAMOTIDINE 20 MG TAB PO (09:38)
[2018-05-29] MEDS: SUCRALFATE SUSP 1GM/10ML UD PO ×3 (09:38→17:22)
[2018-05-29] MEDS: NICOTINE 21MG/24HR 1 EA TRANSDERMAL TD (09:39)
[2018-05-29] MEDS: guaiFENesin ER 600 MG TAB PO ×2 (09:40→20:14)
[2018-05-29] MEDS ORDERED: ISOVUE-370 76% 100ML VIAL (Q9967) As Ordered (09:48)
[2018-05-29] MEDS: ENOXAPARIN 40 MG/0.4 ML SYRINGE (J1650) SC (20:14)
[2018-05-29] MEDS: SIMETHICONE 80 MG CHEW TAB PO (20:16)
[2018-05-29] MEDS: diphenhydrAMINE 25 MG CAP PO (23:34)
[2018-05-30 00:06] LABS: H PYLORI SERUM QUANT IGM <9.0 units (0.0-8.9)
[2018-05-30] MEDS: methylPREDNISolone INJ 40 MG/1 ML VIAL (J2920) IV ×2 (00:27→13:20)
[2018-05-30 05:50] LABS: BASO # 0.1 10^3/uL (0.0-0.2); BASO % 0.4 % (0.0-1.0); HEMATOCRIT 49.8 % (36.0-47.0); HEMOGLOBIN 15.6 g/dl (12.0-15.5); IMMATURE GRANULOCYTE % 4.1 % (0-3.0); LYMPH # 1.4 10^3/uL (1.5-4.5); LYMPH % 9.3 % (24.0-44.0); MEAN CORPUSCULAR HEMOGLOBIN 27.5 pg (27.0-33.0); MEAN CORPUSCULAR HGB CONC 31.3 g/dl (32.0-36.5); MEAN CORPUSCULAR VOLUME 87.7 fl (80.0-96.0); MONO # 0.4 10^3/uL (0.0-0.8); MONO % 2.9 % (0.0-5.0); NEUTROPHILS # 12.5 10^3/uL (1.8-7.7); NEUTROPHILS % 83.3 % (36.0-66.0); PLATELET COUNT, AUTOMATED 249 10^3/uL (150-450); RED BLOOD COUNT 5.68 10^6/uL (4.00-5.40); RED CELL DISTRIBUTION WIDTH 14.1 % (11.5-14.5)
[2018-05-30 06:08] LABS: ALBUMIN 2.7 GM/DL (3.2-5.2); ALBUMIN/GLOBULIN RATIO 0.84 (1.00-1.93); ALKALINE PHOSPHATASE 48 U/L (45-117); ALT/SGPT 88 U/L (12-78); ANION GAP 4 MEQ/L (8-16); AST/SGOT 14 U/L (7-37); BILIRUBIN,TOTAL 0.3 MG/DL (0.2-1.0); BLOOD UREA NITROGEN 28 MG/DL (7-18); CALCIUM LEVEL 8.4 MG/DL (8.8-10.2); CARBON DIOXIDE LEVEL 32 MEQ/L (21-32); CHLORIDE LEVEL 104 MEQ/L (98-107); CREATININE FOR GFR 1.12 MG/DL (0.55-1.30); GLOMERULAR FILTRATION RATE 52.7 (>45); GLUCOSE, FASTING 214 MG/DL (70-100); MAGNESIUM LEVEL 2.6 MG/DL (1.8-2.4); POTASSIUM SERUM 4.3 MEQ/L (3.5-5.1); SODIUM LEVEL 140 MEQ/L (136-145); TOTAL PROTEIN 5.9 GM/DL (6.4-8.2)
[2018-05-30] MEDS: FORMOTEROL FUMARATE 20 MCG/2 ML INHALATION SOLUTION (PERFOROMIST) INH ×2 (07:44→21:27)
[2018-05-30] MEDS: BUDESONIDE 0.5 MG/2 ML INHALATION SUSPENSION INH ×2 (07:44→21:27)
[2018-05-30] MEDS: SODIUM CHLORIDE HYPERTONIC 3% 15ML NEB SOL INH ×3 (07:44→20:00)
[2018-05-30] MEDS: IPRATROPIUM 0.5MG/ALBUTEROL 2.5MG INH SOL UD 3ML (DUONEB)(J7620) NEB ×3 (07:44→20:00)
[2018-05-30] MEDS: FUROSEMIDE 40 MG/4 ML VIAL (J1940) IV (08:12)
[2018-05-30] MEDS: SENOKOT S TAB PO ×2 (08:13→20:18)
[2018-05-30] MEDS: PANTOPRAZOLE 40MG TAB (PROTONIX) PO (08:13)
[2018-05-30] MEDS: MIRALAX *UNIT DOSE* 17GM PACKET PO (08:13)
[2018-05-30] MEDS: ASPIRIN 81 MG ENTERIC TAB PO (08:13)
[2018-05-30] MEDS: SUCRALFATE SUSP 1GM/10ML UD PO ×3 (08:13→17:02)
[2018-05-30] MEDS: guaiFENesin ER 600 MG TAB PO ×2 (08:13→20:17)
[2018-05-30] MEDS: NICOTINE 21MG/24HR 1 EA TRANSDERMAL TD (08:14)
[2018-05-30] MEDS: FAMOTIDINE 20 MG TAB PO (09:28)
[2018-05-30] MEDS: traMADol 50 MG TAB PO ×2 (15:22→22:01)
[2018-05-30] MEDS: ENOXAPARIN 40 MG/0.4 ML SYRINGE (J1650) SC (20:18)
[2018-05-30] MEDS: SIMETHICONE 80 MG CHEW TAB PO (20:32)
[2018-05-31] MEDS: IPRATROPIUM 0.5MG/ALBUTEROL 2.5MG INH SOL UD 3ML (DUONEB)(J7620) NEB ×4 (00:26→20:00)
[2018-05-31] MEDS: SODIUM CHLORIDE HYPERTONIC 3% 15ML NEB SOL INH ×4 (00:27→14:32)
[2018-05-31 00:33] LABS: H PYLORI STOOL ANTIGEN Negative (Negative)
[2018-05-31] MEDS: methylPREDNISolone INJ 40 MG/1 ML VIAL (J2920) IV ×2 (01:28→13:00)
[2018-05-31 06:22] LABS: HEMATOCRIT 48.8 % (36.0-47.0); HEMOGLOBIN 15.3 g/dl (12.0-15.5); MEAN CORPUSCULAR HEMOGLOBIN 27.9 pg (27.0-33.0); MEAN CORPUSCULAR HGB CONC 31.4 g/dl (32.0-36.5); MEAN CORPUSCULAR VOLUME 88.9 fl (80.0-96.0); PLATELET COUNT, AUTOMATED 249 10^3/uL (150-450); RED BLOOD COUNT 5.49 10^6/uL (4.00-5.40); WHITE BLOOD COUNT 13.7 10^3/uL (4.0-10.0)
[2018-05-31 06:33] LABS: ADD MANUAL DIFFER YES; DIFF SLIDE NUMBER 37; POS COUNT POS FLAG; POSITIVE MORPH POS FLAG
[2018-05-31 06:46] LABS: ALBUMIN 2.8 GM/DL (3.2-5.2); ALBUMIN/GLOBULIN RATIO 0.88 (1.00-1.93); ALKALINE PHOSPHATASE 45 U/L (45-117); ALT/SGPT 86 U/L (12-78); ANION GAP 5 MEQ/L (8-16); AST/SGOT 17 U/L (7-37); BILIRUBIN,TOTAL 0.3 MG/DL (0.2-1.0); BLOOD UREA NITROGEN 29 MG/DL (7-18); CALCIUM LEVEL 8.8 MG/DL (8.8-10.2); CARBON DIOXIDE LEVEL 34 MEQ/L (21-32); CHLORIDE LEVEL 102 MEQ/L (98-107); CREATININE FOR GFR 1.12 MG/DL (0.55-1.30); GLOMERULAR FILTRATION RATE 52.7 (>45); GLUCOSE, FASTING 209 MG/DL (70-100); MAGNESIUM LEVEL 2.4 MG/DL (1.8-2.4); POTASSIUM SERUM 4.4 MEQ/L (3.5-5.1); SODIUM LEVEL 141 MEQ/L (136-145)
[2018-05-31 07:26] LABS: ATYPICAL LYMPH 3 % (0-5); LYMPHOCYTES 12 % (16-52); MONOCYTES 4 % (0-8); MYELOCYTES 2 % (0-0); NEUTROPHILS 79 % (35-75)
[2018-05-31 07:27] LABS: PLATELET ESTIMATE NORMAL (NORMAL)
[2018-05-31 07:28] LABS: ANISOCYTOSIS 1+
[2018-05-31] MEDS: FORMOTEROL FUMARATE 20 MCG/2 ML INHALATION SOLUTION (PERFOROMIST) INH ×2 (07:31→21:19)
[2018-05-31] MEDS: BUDESONIDE 0.5 MG/2 ML INHALATION SUSPENSION INH ×2 (07:31→21:19)
[2018-05-31] MEDS: SUCRALFATE SUSP 1GM/10ML UD PO ×3 (09:02→17:30)
[2018-05-31] MEDS: NICOTINE 21MG/24HR 1 EA TRANSDERMAL TD (09:02)
[2018-05-31] MEDS: guaiFENesin ER 600 MG TAB PO ×2 (09:03→20:21)
[2018-05-31] MEDS: ASPIRIN 81 MG ENTERIC TAB PO (09:03)
[2018-05-31] MEDS: FAMOTIDINE 20 MG TAB PO (09:03)
[2018-05-31] MEDS: MIRALAX *UNIT DOSE* 17GM PACKET PO (09:03)
[2018-05-31] MEDS: SENOKOT S TAB PO ×2 (09:03→20:21)
[2018-05-31] MEDS: PANTOPRAZOLE 40MG TAB (PROTONIX) PO (09:03)
[2018-05-31] MEDS: CARBAMIDE PEROXIDE 6.5% OTIC SOLN 15ML AD ×2 (10:07→20:22)
[2018-05-31] MEDS: FUROSEMIDE 40 MG TAB PO (18:07)
[2018-05-31] MEDS: ENOXAPARIN 40 MG/0.4 ML SYRINGE (J1650) SC (20:21)
[2018-06-01] MEDS: methylPREDNISolone INJ 40 MG/1 ML VIAL (J2920) IV ×2 (00:12→14:25)
[2018-06-01] MEDS: IPRATROPIUM 0.5MG/ALBUTEROL 2.5MG INH SOL UD 3ML (DUONEB)(J7620) NEB ×4 (01:44→21:31)
[2018-06-01] MEDS: traMADol 50 MG TAB PO ×3 (03:35→20:52)
[2018-06-01 05:58] LABS: ADD MANUAL DIFFER YES; DIFF SLIDE NUMBER 18; HEMOGLOBIN 15.8 g/dl (12.0-15.5); MEAN CORPUSCULAR HEMOGLOBIN 27.9 pg (27.0-33.0); MEAN CORPUSCULAR HGB CONC 31.6 g/dl (32.0-36.5); MEAN CORPUSCULAR VOLUME 88.3 fl (80.0-96.0); PLATELET COUNT, AUTOMATED 249 10^3/uL (150-450); POS COUNT POS FLAG; POSITIVE MORPH POS FLAG; RED BLOOD COUNT 5.66 10^6/uL (4.00-5.40); RED CELL DISTRIBUTION WIDTH 14.1 % (11.5-14.5); WHITE BLOOD COUNT 16.4 10^3/uL (4.0-10.0)
[2018-06-01 06:32] LABS: ALBUMIN/GLOBULIN RATIO 0.91 (1.00-1.93); ALKALINE PHOSPHATASE 50 U/L (45-117); ALT/SGPT 84 U/L (12-78); ANION GAP 6 MEQ/L (8-16); AST/SGOT 11 U/L (7-37); BILIRUBIN,TOTAL 0.5 MG/DL (0.2-1.0); BLOOD UREA NITROGEN 29 MG/DL (7-18); CALCIUM LEVEL 8.8 MG/DL (8.8-10.2); CARBON DIOXIDE LEVEL 32 MEQ/L (21-32); CHLORIDE LEVEL 101 MEQ/L (98-107); CREATININE FOR GFR 1.15 MG/DL (0.55-1.30); GLOMERULAR FILTRATION RATE 51.1 (>45); GLUCOSE, FASTING 209 MG/DL (70-100); MAGNESIUM LEVEL 2.4 MG/DL (1.8-2.4); POTASSIUM SERUM 4.2 MEQ/L (3.5-5.1); SODIUM LEVEL 139 MEQ/L (136-145); TOTAL PROTEIN 6.3 GM/DL (6.4-8.2)
[2018-06-01 06:33] LABS: ATYPICAL LYMPH 2 % (0-5); LYMPHOCYTES 6 % (16-52); MONOCYTES 1 % (0-8); NEUTROPHILS 91 % (35-75)
[2018-06-01 06:35] LABS: GIANT PLATELETS 1+; PLATELET ESTIMATE NORMAL (NORMAL)
[2018-06-01] MEDS: FORMOTEROL FUMARATE 20 MCG/2 ML INHALATION SOLUTION (PERFOROMIST) INH ×2 (07:22→20:00)
[2018-06-01] MEDS: SODIUM CHLORIDE HYPERTONIC 3% 15ML NEB SOL INH ×3 (07:22→21:31)
[2018-06-01] MEDS: BUDESONIDE 0.5 MG/2 ML INHALATION SUSPENSION INH ×2 (07:22→21:31)
[2018-06-01] MEDS: SUCRALFATE SUSP 1GM/10ML UD PO ×3 (08:47→17:43)
[2018-06-01] MEDS: MIRALAX *UNIT DOSE* 17GM PACKET PO (08:47)
[2018-06-01] MEDS: PANTOPRAZOLE 40MG TAB (PROTONIX) PO (08:48)
[2018-06-01] MEDS: SENOKOT S TAB PO ×2 (08:48→20:51)
[2018-06-01] MEDS: guaiFENesin ER 600 MG TAB PO ×2 (08:48→20:51)
[2018-06-01] MEDS: FAMOTIDINE 20 MG TAB PO (08:48)
[2018-06-01] MEDS: ASPIRIN 81 MG ENTERIC TAB PO (08:48)
[2018-06-01] MEDS: FUROSEMIDE 40 MG TAB PO (08:49)
[2018-06-01] MEDS: CARBAMIDE PEROXIDE 6.5% OTIC SOLN 15ML AD ×2 (08:52→20:52)
[2018-06-01] MEDS: NICOTINE 21MG/24HR 1 EA TRANSDERMAL TD (08:52)
[2018-06-01] MEDS: ENOXAPARIN 40 MG/0.4 ML SYRINGE (J1650) SC (20:51)
[2018-06-02] MEDS: methylPREDNISolone INJ 40 MG/1 ML VIAL (J2920) IV (00:08)
[2018-06-02] MEDS: ACETAMINOPHEN TAB 650MG DOSE (2X325MG) PO (00:10)
[2018-06-02] MEDS: SODIUM CHLORIDE HYPERTONIC 3% 15ML NEB SOL INH ×2 (02:00→08:11)
[2018-06-02] MEDS: IPRATROPIUM 0.5MG/ALBUTEROL 2.5MG INH SOL UD 3ML (DUONEB)(J7620) NEB ×2 (02:21→08:00)
[2018-06-02 06:14] LABS: HEMATOCRIT 49.6 % (36.0-47.0); HEMOGLOBIN 15.8 g/dl (12.0-15.5); MEAN CORPUSCULAR HGB CONC 31.9 g/dl (32.0-36.5); MEAN CORPUSCULAR VOLUME 87.8 fl (80.0-96.0); PLATELET COUNT, AUTOMATED 249 10^3/uL (150-450); RED BLOOD COUNT 5.65 10^6/uL (4.00-5.40); RED CELL DISTRIBUTION WIDTH 14.3 % (11.5-14.5); WHITE BLOOD COUNT 18.5 10^3/uL (4.0-10.0)
[2018-06-02 06:28] LABS: ADD MANUAL DIFFER YES; DIFF SLIDE NUMBER 15; POS COUNT POS FLAG; POSITIVE MORPH POS FLAG
[2018-06-02 06:47] LABS: ALBUMIN 2.9 GM/DL (3.2-5.2); ALBUMIN/GLOBULIN RATIO 0.88 (1.00-1.93); ALKALINE PHOSPHATASE 44 U/L (45-117); ALT/SGPT 70 U/L (12-78); ANION GAP 7 MEQ/L (8-16); AST/SGOT 11 U/L (7-37); BILIRUBIN,TOTAL 0.4 MG/DL (0.2-1.0); BLOOD UREA NITROGEN 36 MG/DL (7-18); CALCIUM LEVEL 8.8 MG/DL (8.8-10.2); CARBON DIOXIDE LEVEL 30 MEQ/L (21-32); CHLORIDE LEVEL 101 MEQ/L (98-107); CREATININE FOR GFR 1.17 MG/DL (0.55-1.30); GLOMERULAR FILTRATION RATE 50.1 (>45); GLUCOSE, FASTING 227 MG/DL (70-100); MAGNESIUM LEVEL 2.5 MG/DL (1.8-2.4); POTASSIUM SERUM 4.3 MEQ/L (3.5-5.1); SODIUM LEVEL 138 MEQ/L (136-145); TOTAL PROTEIN 6.2 GM/DL (6.4-8.2)
[2018-06-02 06:55] LABS: ATYPICAL LYMPH 2 % (0-5); GIANT PLATELETS 1+; LYMPHOCYTES 9 % (16-52); MONOCYTES 4 % (0-8); NEUTROPHILS 85 % (35-75); PLATELET ESTIMATE NORMAL (NORMAL)
[2018-06-02] MEDS: FORMOTEROL FUMARATE 20 MCG/2 ML INHALATION SOLUTION (PERFOROMIST) INH (08:11)
[2018-06-02] MEDS: BUDESONIDE 0.5 MG/2 ML INHALATION SUSPENSION INH (08:11)
[2018-06-02] MEDS: PANTOPRAZOLE 40MG TAB (PROTONIX) PO (08:44)
[2018-06-02] MEDS: MIRALAX *UNIT DOSE* 17GM PACKET PO (08:44)
[2018-06-02] MEDS: guaiFENesin ER 600 MG TAB PO (08:44)
[2018-06-02] MEDS: SENOKOT S TAB PO (08:44)
[2018-06-02] MEDS: ASPIRIN 81 MG ENTERIC TAB PO (08:44)
[2018-06-02] MEDS: FAMOTIDINE 20 MG TAB PO (08:44)
[2018-06-02] MEDS: FUROSEMIDE 40 MG TAB PO (08:44)
[2018-06-02] MEDS: SUCRALFATE SUSP 1GM/10ML UD PO (08:44)
[2018-06-02] MEDS: CARBAMIDE PEROXIDE 6.5% OTIC SOLN 15ML AD (08:45)
[2018-06-02] MEDS: NICOTINE 21MG/24HR 1 EA TRANSDERMAL TD (08:45)
== END 2018-06-02 14:28 | disposition home health service (06) | DRG 190 ==
LOC: M MSPAV 05-23 17:55 → M ICU 05-24 00:34 → M MSPAV 05-28 15:12 → M ED 16:28 → M ED INP 18:42 → M PCU 19:57
DX: J44.1 Chronic obstructive pulmonary disease with (acute) exacerbation (principal); J96.21 Acute and chronic respiratory failure with hypoxia; I50.33 Acute on chronic diastolic (congestive) heart failure; E87.2 Acidosis; J21.0 Acute bronchiolitis due to respiratory syncytial virus; G47.33 Obstructive sleep apnea (adult) (pediatric); E66.01 Morbid (severe) obesity due to excess calories; I11.0 Hypertensive heart disease with heart failure; J44.0 Chronic obstructive pulmonary disease with (acute) lower respiratory infection; K21.9 Gastro-esophageal reflux disease without esophagitis; K57.30 Diverticulosis of large intestine without perforation or abscess without bleeding; Z79.899 Other long term (current) drug therapy; Z79.82 Long term (current) 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; Z88.0 Allergy status to penicillin; Z88.2 Allergy status to sulfonamides; Z88.8 Allergy status to other drugs, medicaments and biological substances; M94.0 Chondrocostal junction syndrome [Tietze]; I27.20 Pulmonary hypertension, unspecified; Z87.891 Personal history of nicotine dependence; Z99.81 Dependence on supplemental oxygen

== ENCOUNTER → 2018-07-06 | Outpatient (REF) | payer MEDICARE, MEDICAID ==
[~2018-07-06] MED LIST changes: +AZIT500T2 PO; +COLA100C5 PO; +LOPE2CA PO; +METF500T13 PO; +NICO21DI34 TD; +VENTAER INH; +ZITH500T PO
== END ==
LOC: M LAB REF 11:13
PROVIDERS: ATTEND Nurse Practitioner Family
DX: J47.9 Bronchiectasis, uncomplicated (principal)

== ENCOUNTER 2018-08-30 19:41 | Inpatient (IN) | payer MEDICARE, MEDICAID ==
[~2018-08-30] VITALS: Ht 167.6 cm; Wt 114.7 kg
[~2018-08-30 19:41] MED LIST changes: -/ANUSHCSU PR; -/ESOM40CA PO; -/METO5TA PO; -ACET50TA PO; -ASPI1TAB PO; -ASPI81CH PO; +ASPI81CH49 PO; +ASPI81TA26 PO; +HYDR1SUP3 PR; +MAPA500T17 PO; +METO1TAB88 PO; +NEXI1CAP3 PO; +PRED-351 PO; -PRED10TA PO
[2018-08-30 20:36] LABS: BASO # 0.1 10^3/uL (0.0-0.2); BASO % 0.8 % (0.0-1.0); EOS # 0.2 10^3/uL (0.0-0.50); EOS % 1.8 % (0.0-3.0); HEMATOCRIT 43.9 % (36.0-47.0); HEMOGLOBIN 13.8 g/dl (12.0-15.5); LYMPH % 16.7 % (24.0-44.0); MEAN CORPUSCULAR HEMOGLOBIN 28.2 pg (27.0-33.0); MEAN CORPUSCULAR HGB CONC 31.4 g/dl (32.0-36.5); MEAN CORPUSCULAR VOLUME 89.8 fl (80.0-96.0); MONO # 0.7 10^3/uL (0.0-0.8); MONO % 5.5 % (0.0-5.0); NEUTROPHILS # 8.9 10^3/uL (1.8-7.7); NEUTROPHILS % 74.4 % (36.0-66.0); PLATELET COUNT, AUTOMATED 309 10^3/uL (150-450); RED BLOOD COUNT 4.89 10^6/uL (4.00-5.40); WHITE BLOOD COUNT 11.9 10^3/uL (4.0-10.0)
--- NOTE | 2018-08-30 20:42 | REP ---
Clinical: Cough and dyspnea . Comparison: 05/25/2018 . Findings: The mediastinum and cardiac silhouette are stable and within normal limits for portable technique. The lung nava demonstrate chronic stable changes without acute consolidation, effusion, or pneumothorax. Skeletal structures are intact. Impression: No acute cardiopulmonary process appreciated. Electronically Signed by Kai Nguyen MD 08/30/2018 08:34 P
[2018-08-30 20:59] LABS: INFLUENZA A AMPLIFICATION NEGATIVE (NEGATIVE); INFLUENZA B AMPLIFICATION NEGATIVE (NEGATIVE)
[2018-08-30 21:06] LABS: BLOOD UREA NITROGEN 8 MG/DL (7-18); CALCIUM LEVEL 9.7 MG/DL (8.8-10.2); CARBON DIOXIDE LEVEL 28 MEQ/L (21-32); CHLORIDE LEVEL 109 MEQ/L (98-107); CK-MB VALUE MASS < 1.0 NG/ML (<3.6); CPK CREATINE PHOSPHOKINASE 73 U/L (26-192); CREATININE FOR GFR 1.15 MG/DL (0.55-1.30); GLOMERULAR FILTRATION RATE 51.1 (>45); GLUCOSE, FASTING 114 MG/DL (70-100); MB/CK RELATIVE INDEX 1.37 (< OR =4); NT-PRO BNP 93 PG/ML (<125); POTASSIUM SERUM 4.3 MEQ/L (3.5-5.1); SODIUM LEVEL 146 MEQ/L (136-145); TROPONIN I < 0.02 NG/ML (< 0.10)
[2018-08-30] MEDS: IPRATROPIUM 0.5MG/ALBUTEROL 2.5MG INH SOL UD 3ML (DUONEB)(J7620) NEB PRN ×3 (21:40→22:01)
[2018-08-30 21:42] LABS: ABG BASE EXCESS 1.3 (-2.0-2.0); ABG HCO3 26.8 MEQ/L (22.0-26.0); ABG O2 SATURATION 91.9 % (95.0-99.0); ABG PARTIAL PRESSURE CO2 46.1 mmHg (35.0-45.0); ABG PARTIAL PRESSURE O2 61.9 mmHg (75.0-100.0); ABG STANDARD HCO3 25.4 MEQ/L (22.0-26.0); ABG TOTAL CO2 28.3 MEQ/L (23.0-31.0); ABG pH (ARTERIAL) 7.383 UNITS (7.350-7.450)
[2018-08-30] MEDS ORDERED: ONDANSETRON 4 MG ORAL DISINTEGRATING TAB (Q0162 PER 1MG) PO ONE (22:15)
[2018-08-30] MEDS ORDERED: ACETAMINOPHEN TAB 650MG DOSE (2X325MG) PO ONE (22:15)
[2018-08-30] MEDS ORDERED: ACETAMINOPHEN TAB 650MG DOSE (2X325MG) PO PRN (23:00)
[2018-08-30] MEDS ORDERED: ONDANSETRON 4MG/2ML VIAL (J2405) IV PRN (23:00)
[2018-08-30] MEDS ORDERED: CLAR500T PO (23:15)
[2018-08-30] MEDS ORDERED: MUCITAB PO (23:15)
[2018-08-30] MEDS ORDERED: PROAAER10 INH (23:15)
[2018-08-30] MEDS ORDERED: ASPI81TAEC PO (23:15)
[2018-08-30] MEDS ORDERED: CLOT1CRE71 TOP (23:15)
[2018-08-30] MEDS ORDERED: LOPERAMIDE 2 MG CAP PO PRN (23:15)
[2018-08-30] MEDS ORDERED: METR-265 PO (23:15)
[2018-08-30] MEDS ORDERED: ALBUTEROL SULFATE 2.5 MG/0.5 ML INH NEB SOLN NEB PRN (23:15)
[2018-08-30] MEDS ORDERED: diphenhydrAMINE 25 MG CAP PO PRN (23:15)
[2018-08-30] MEDS ORDERED: ALBU83IN INH (23:15)
[2018-08-31] MEDS ORDERED: methylPREDNISolone INJ 40 MG/1 ML VIAL (J2920) IV SCH
[2018-08-31 00:45] VITALS: BP 145/89
[2018-08-31] MEDS: SYMBICORT 160/4.5MCG INHALER 6GM INH SCH ×3 (02:19→20:00)
[2018-08-31] MEDS: CLARITHROMYCIN 250 MG TAB PO SCH ×3 (03:00→20:35)
[2018-08-31] MEDS: metroNIDAZOLE (FLAGYL) 500 MG TAB PO SCH ×3 (03:00→17:24)
[2018-08-31] MEDS: methylPREDNISolone INJ 125 MG/2 ML VIAL (J2930) IV SCH ×3 (03:00→17:24)
[2018-08-31] MEDS: IPRATROPIUM 0.5MG/ALBUTEROL 2.5MG INH SOL UD 3ML (DUONEB)(J7620) NEB SCH ×7 (04:00→23:11)
[2018-08-31] MEDS: HEPARIN SOD (PORCINE) 5000 UNITS/ML VIAL SC SCH ×3 (05:55→22:00)
[2018-08-31 06:00] VITALS: BP 143/87
[2018-08-31 06:55] LABS: HEMATOCRIT 44.7 % (36.0-47.0); HEMOGLOBIN 13.7 g/dl (12.0-15.5); MEAN CORPUSCULAR HEMOGLOBIN 27.8 pg (27.0-33.0); MEAN CORPUSCULAR HGB CONC 30.6 g/dl (32.0-36.5); MEAN CORPUSCULAR VOLUME 90.7 fl (80.0-96.0); PLATELET COUNT, AUTOMATED 305 10^3/uL (150-450); RED BLOOD COUNT 4.93 10^6/uL (4.00-5.40); WHITE BLOOD COUNT 11.2 10^3/uL (4.0-10.0)
[2018-08-31 07:22] LABS: CALCIUM LEVEL 10.2 MG/DL (8.8-10.2); CREATININE FOR GFR 1.32 MG/DL (0.55-1.30); GLOMERULAR FILTRATION RATE 43.6 (>45); POTASSIUM SERUM 4.2 MEQ/L (3.5-5.1)
--- NOTE | 2018-08-31 07:32 | HPE ---
DATE OF ADMISSION: 08/30/2018 CHIEF COMPLAINT: Cough, wheezing, dyspnea on exertion. HISTORY OF PRESENT ILLNESS: The patient is a 62-year-old female with a significant past medical history of chronic respiratory failure secondary to chronic obstructive pulmonary disease (COPD) on 3 liters of nasal cannula at home, obstructive sleep apnea no longer using CPAP. States her vamp presser in [place] is currently trying to get her a BiPAP machine. Morbid obesity, hypertension, congestive heart failure, gastroesophageal reflux disease. She presented to the emergency room with a 1-day of coughing spells, wheezing, progressive dyspnea on exertion. She denies any chest pain. She does endorse some nausea, but she states that she was recently diagnosed with diverticulitis by her primary care provider and was placed on a course of erythromycin and Flagyl for 10 days, which she has not filled. She denies any chest pain. She denies any sick contact. She denies any urinary symptoms. Currently the abdomen is benign and she has no abdominal pain, though she has not started her antibiotics yet for this acute diverticulitis episode per her account. PAST MEDICAL HISTORY: See history of present illness (HPI). PAST SURGICAL HISTORY: Appendectomy. Cholecystectomy. Hysterectomy. ALLERGIES: MACROLIDE, PENICILLINS, QUINOLONES, SULFUR, TETRACYCLINES, ARIPIPRAZOLE, VENLAFAXINE. SOCIAL HISTORY: She is a former smoker who quit several months ago. Has a nicotine patch in place. Denies alcohol or illicit drugs use. FAMILY HISTORY: Noncontributory. REVIEW OF SYSTEMS: 12-point review of systems was completed all of which were negative except those listed in the HPI. PHYSICAL EXAMINATION: Vitals on admission: Temperature 97, pulse 116, respirations 25, saturating at 90% on 2 liters nasal cannula, blood pressure 131/74. General: Well-nourished, in no apparent distress. HEENT: Head is normocephalic atraumatic. Eyes: Extraocular movements are intact. Pupils equal, round, and reactive to light. Neck is supple. No jugular venous pulse (JVP). Lungs have diffuse wheezing. Bronchial breath sounds. Cardiovascular: Regular rate and rhythm. Normal S1, S2, no murmurs, gallops or rubs. Abdomen is soft, nontender, nondistended. Positive bowel sounds. No rebound or guarding. Extremities: No pitting edema or calf tenderness. Skin is intact. No rashes lesions or breakdowns. Neurological exam: Alert and oriented times three. No focal deficit appreciated on the exam. LABS AND IMAGING: Done in the emergency room: White count 11, hemoglobin and hematocrit 13/43, platelet count 309. Blood gas: 7.3/46/61/26/91. Chemistries: BUN and creatinine 8/1.15, lactate 2. Troponins are negative. Rapid flu is negative. Chest x-ray shows no acute cardiopulmonary process. ASSESSMENT/PLAN: 1. Chronic obstructive pulmonary disease (COPD) exacerbation secondary to upper respiratory infection (URI) with acute on chronic respiratory failure with hypoxia. DuoNebs standing, albuterol as needed, Solu-Medrol 40 every 8. Check fingersticks while on Solu-Medrol. Patient is on erythromycin and Flagyl for episode of diverticulitis uncomplicated as per her. Erythromycin is more an appropriate respiratory coverage for URI. Oxygen as needed. 2. For episode of uncomplicated diverticulitis, as per patient, diagnosed as an outpatient. Will continue Zofran, erythromycin and Flagyl as per her primary care physician. 3. Tobacco dependence: Continue the nicotine patch. 4. Obstructive sleep apnea: Currently in the process of obtaining a BiPAP with the aide of her vamp presser in [place]. 5. Morbid obesity: Patient has been counseled. 6. Gastroesophageal reflux disease (GERD): H2 luis carlos. 7. Hypertension, congestive heart failure (CHF): The patient is euvolemic. Continue Lasix. 8. Supportive deep venous thrombosis (DVT) prophylaxis: Heparin subcutaneous. 9. Gastrointestinal (GI) prophylaxis on H2 luis carlos. 10. Diet: Cardiac, fluid restriction.
[2018-08-31] MEDS ORDERED: FUROSEMIDE 40 MG TAB PO SCH (09:00)
[2018-08-31] MEDS: traMADol 50 MG TAB PO PRN ×2 (09:07→17:26)
[2018-08-31] MEDS: guaiFENesin ER 600 MG TAB PO SCH ×2 (09:07→20:36)
[2018-08-31] MEDS: ASPIRIN 81 MG ENTERIC TAB PO SCH (09:07)
[2018-08-31] MEDS: FAMOTIDINE 20 MG TAB PO SCH (09:07)
[2018-08-31] MEDS: NICOTINE 21MG/24HR 1 EA TRANSDERMAL TD PRN (09:13)
--- NOTE | 2018-08-31 10:24 | ECGEPIP ---
Stationary ECG Study [facility] - ED Test Date: 2018-08-30 Pat Name: ELIZABETH BRENNAN Department: Room: [place] [address] Gender: F Internal Affairs Investigator: MILES : [id number] Requested By: Sukhjinder Moore Order Number: [id number] Reading MD: Mary Ann Shelton Measurements Intervals [place] Rate: 96 P: 73 ID: [id number] QRS: 36 QRSD: 91 T: 73 QT: 341 QTc: 431 Interpretive Statements SINUS RHYTHM WITH SINUS ARRHYTHMIA NSTTW ABNORMALITY LOW VOLTAGE LIMB DECREASED RATE 05/24/18 Electronically Signed On 08-31-2018 10:23:43 EDT by Mary Ann Shelton
[2018-08-31] MEDS: LACTULOSE 20 GM/30 ML SYRUP UD PO PRN (11:02)
[2018-08-31] MEDS ORDERED: DEXTROSE 50% 50 ML SYRINGE IV PRN (11:45)
[2018-08-31] MEDS ORDERED: GLUCAGON FOR INJ 1 MG VIAL (J1610) SC PRN (11:45)
[2018-08-31] MEDS ORDERED: GLUCOSE 4 GM CHEW TABLET PO PRN (11:45)
[2018-08-31] MEDS: HumaLOG INSULIN (NovoLOG) PER UNIT SC SCH ×3 (12:25→22:13)
--- NOTE | 2018-08-31 13:01 | IPNPDOC ---
Text Note Date of Service The patient was seen on 08/31/18. NOTE Subjective: Patient is a 62-year-old female with a PMHx of HTN, Diastolic CHF, COPD on 3L O2, JIGNESH (not on CPAP, reports paper gluing operator working on getting her a BiPAP), Morbid Obesity, GERD who presented to the ER with 1 day episode of coughing, wheezing and shortness of breath with exertion. Patient noted that she was recently diagnosed with diverticulitis and had seen her primary care provider with provided her with clarithromycin and metronidazole for 10 days. In the emergency room, patient appeared to have exacerbation of her underlying lung disease and was admitted to the hospital service for further evaluation and treatment. Patient was seen and examined at the bedside. Patient has noted that her breathing is doing better than when she first arrived to cough. Denies any chest pain or palpitations. Denies nausea, vomiting, abdominal pain, constipation, diarrhea or discomfort with urination. Objective: Vitals (See below) General: Lying in bed, no acute distress, comfortable, AAOx3 HEENT: NC, AT CVS: RRR, +S1S2 Lungs: Fair air entry b/l, diffuse wheezing and still be appreciated at bilateral upper and lower lung nava and some rhonchi or rales Abdomen: Soft, ND, palpation does not reveal any tenderness Extremities: - Edema, - Calf tenderness Assessment and plan: Shortness of breath - likely 2/2 underlying lung disease; - Presented to the ER physician as of breath, cough and wheezing; clinically patient has noted improvement in her breathing from the point arrival - Currently physical reveals bilateral wheezing in upper and lower lung nava - Patient uses 3 L of oxygen at baseline - Lab work appears benign - ABG has been noted - CXR 08/30: No acute cardiopulmonary process appreciated. - c/w Solumedrol - c/w inhaled therapy as ordered Chronic hypoxic respiratory failure - likely 2/2 COPD - See above Recent history of acute diverticulitis - Patient has been prescribed antibiotics as an outpatient for her left lower quadrant abdominal pain - Will continue with clarithromycin and metronidazole (Day #4) Elevation in Cr - Baseline creatinine ~1.1; creatinine currently at 1.3 - Will hold diuretics HTN - Currently not on medications Compensate Diastolic CHF - No evidence of exacerbation - ECHO 05/27: Probably normal LV systolic function, G2DD, No significant valvular disease, elevated CVP - Will hold diuretics (re: elevation in Cr) JIGNESH - Currently patient is not on CPAP - She is indicated that her paper gluing operator is working on getting her a BiPAP Morbid Obesity - Complaining medical care Tobacco dependence - Advised smoking cessation - c/w Nicotine patch GERD - c/w Famotidine DVT prophylaxis - c/w Heparin VS,Fishbone, I+O VS, Fishbone, I+O Laboratory Tests 08/30/18 20:12 Calcium Level 9.7, Total Creatine Kinase 73 08/30/18 20:13 Red Blood Count 4.89, Mean Corpuscular Volume 89.8, Mean Corpuscular Hemoglobin 28.2, Mean Corpuscular Hemoglobin Concent 31.4 L, Red Cell Distribution Width 14.9 H, Neutrophils (%) (Auto) 74.4 H, Lymphocytes (%) (Auto) 16.7 L, Monocytes (%) (Auto) 5.5 H, Eosinophils (%) (Auto) 1.8, Basophils (%) (Auto) 0.8, Neutrophils # (Auto) 8.9 H, Lymphocytes # (Auto) 2.0, Monocytes # (Auto) 0.7, Eosinophils # (Auto) 0.2, Basophils # (Auto) 0.1 08/31/18 06:04 Calcium Level 10.2, Red Blood Count 4.93, Mean Corpuscular Volume 90.7, Mean Corpuscular Hemoglobin 27.8, Mean Corpuscular Hemoglobin Concent 30.6 L, Red Cell Distribution Width 14.9 H Vital Signs Date Time Temp Pulse Resp B/P (MAP) Pulse Ox O2 Delivery O2 Flow Rate FiO2 08/31/18 10:03 19 08/31/18 09:00 3.0 08/31/18 06:00 97.0 92 143/87 (105) 96 08/31/18 00:45 86 08/30/18 22:42 Nasal Cannula I&O- Last 24 Hours up to 6 AM 08/31/18 06:00 Intake Total 120 ml Output Total 200 ml Balance -80 ml ELVIS VILLANUEVA MD Aug 31, 2018 13:01
[2018-08-31 14:00] VITALS: BP 162/83
[2018-08-31] MEDS: EUCERIN 120GM CREAM TOP SCH ×2 (17:25→20:36)
[2018-08-31 22:00] VITALS: BP 141/82
[2018-09-01] MEDS: metroNIDAZOLE (FLAGYL) 500 MG TAB PO SCH ×3 (01:08→16:59)
[2018-09-01] MEDS: methylPREDNISolone INJ 125 MG/2 ML VIAL (J2930) IV SCH ×3 (01:08→16:59)
[2018-09-01 06:00] VITALS: BP 134/79
[2018-09-01] MEDS: HEPARIN SOD (PORCINE) 5000 UNITS/ML VIAL SC SCH ×3 (06:00→22:00)
[2018-09-01 06:04] LABS: HEMATOCRIT 43.3 % (36.0-47.0); HEMOGLOBIN 13.2 g/dl (12.0-15.5); MEAN CORPUSCULAR HEMOGLOBIN 27.7 pg (27.0-33.0); MEAN CORPUSCULAR HGB CONC 30.5 g/dl (32.0-36.5); PLATELET COUNT, AUTOMATED 322 10^3/uL (150-450); RED BLOOD COUNT 4.76 10^6/uL (4.00-5.40); WHITE BLOOD COUNT 16.5 10^3/uL (4.0-10.0)
[2018-09-01 06:31] LABS: CALCIUM LEVEL 9.8 MG/DL (8.8-10.2); CREATININE FOR GFR 1.1 MG/DL (0.55-1.30); GLOMERULAR FILTRATION RATE 53.8 (>45); POTASSIUM SERUM 4.8 MEQ/L (3.5-5.1)
[2018-09-01] MEDS: traMADol 50 MG TAB PO PRN (06:47)
[2018-09-01] MEDS: IPRATROPIUM 0.5MG/ALBUTEROL 2.5MG INH SOL UD 3ML (DUONEB)(J7620) NEB SCH ×5 (07:39→23:34)
[2018-09-01] MEDS: SYMBICORT 160/4.5MCG INHALER 6GM INH SCH ×2 (07:40→20:20)
[2018-09-01] MEDS: HumaLOG INSULIN (NovoLOG) PER UNIT SC SCH ×4 (08:13→21:49)
[2018-09-01] MEDS: FAMOTIDINE 20 MG TAB PO SCH (08:14)
[2018-09-01] MEDS: guaiFENesin ER 600 MG TAB PO SCH ×2 (08:14→21:48)
[2018-09-01] MEDS: ASPIRIN 81 MG ENTERIC TAB PO SCH (08:14)
[2018-09-01] MEDS: EUCERIN 120GM CREAM TOP SCH ×3 (08:15→21:48)
[2018-09-01] MEDS: CLARITHROMYCIN 250 MG TAB PO SCH ×2 (09:59→21:48)
[2018-09-01] MEDS: NICOTINE 21MG/24HR 1 EA TRANSDERMAL TD PRN (10:00)
[2018-09-01 14:00] VITALS: BP 145/60
[2018-09-01] MEDS: LACTULOSE 20 GM/30 ML SYRUP UD PO PRN (14:43)
--- NOTE | 2018-09-01 14:49 | IPNPDOC ---
Text Note Date of Service The patient was seen on 09/01/18. NOTE Subjective: Patient is a 62-year-old female with a PMHx of HTN, Diastolic CHF, COPD on 3L O2, JIGNESH (not on CPAP, reports assistant director of plant operations working on getting her a BiPAP), Morbid Obesity, GERD who presented to the ER with 1 day episode of coughing, wheezing and shortness of breath with exertion. Patient noted that she was recently diagnosed with diverticulitis and had seen her primary care provider with provided her with clarithromycin and metronidazole for 10 days. In the emergency room, patient appeared to have exacerbation of her underlying lung disease and was admitted to the hospital service for further evaluation and treatment. Patient was seen and examined at the bedside. Patient reports that her breathing is doing slightly better, still reports significant wheezing. Denies any significant cough. Patient denies any nausea, vomiting, abdominal pain, constipation or diarrhea. Patient notes some discomfort with urination, sensation of bladder fullness, however bladder scans have not shown any significant retention. Objective: Vitals (See below) General: Lying in bed, no acute distress, comfortable, AAOx3 HEENT: NC, AT CVS: RRR, +S1S2 Lungs: Air entry is fair bilaterally, without any evidence of rhonchi, rales, there does appear to be diffuse wheezing at bilateral upper and lower lung nava Abdomen: Morbid obesity, but remains soft, without any distention or tenderness Extremities: LE are without any evidence of edema, - Calf tenderness Assessment and plan: Shortness of breath - likely 2/2 underlying lung disease; - Presented to the ER physician as of breath, cough and wheezing; clinically patient has noted improvement in her breathing from the point arrival - Physical still reveals wheezing at bilateral upper and lower lung nava - Patient uses 3 L of oxygen at baseline - Lab work appears benign - ABG has been noted - CXR 08/30: No acute cardiopulmonary process appreciated. - c/w Solumedrol - will remain on current dose until wheezing subsides - c/w inhaled therapy as ordered Chronic hypoxic respiratory failure - likely 2/2 COPD - See above Recent history of acute diverticulitis - Patient has been prescribed antibiotics as an outpatient for her left lower quadrant abdominal pain - c/w clarithromycin and metronidazole (Day #5) Abnormal UA - Patient has noted some sensation of bladder fullness; she denies any discomfort or urinary frequency - Urinalysis appears to have findings consistent with urinary tract infection - Awaiting urine culture Elevation in Cr - Baseline creatinine ~1.1; creatinine currently at 1.3 - Will hold diuretics HTN - Currently not on medications Compensate Diastolic CHF - No evidence of exacerbation - ECHO 05/27: Probably normal LV systolic function, G2DD, No significant valvular disease, elevated CVP - Will hold diuretics (re: elevation in Cr); will likely resume diuretics within the next 24-48 hours JIGNESH - Currently patient is not on CPAP - She is indicated that her assistant director of plant operations is working on getting her a BiPAP Morbid Obesity - Complaining medical care Tobacco dependence - Advised smoking cessation - c/w Nicotine patch GERD - c/w Famotidine DVT prophylaxis - c/w Heparin Disposition: - Awaiting improvement in breathing status before tapering down steroids - Awaiting urine cultures VS,Jayae, I+O VS, Fishbone, I+O Laboratory Tests 09/01/18 05:15 Red Blood Count 4.76, Mean Corpuscular Volume 91.0, Mean Corpuscular Hemoglobin 27.7, Mean Corpuscular Hemoglobin Concent 30.5 L, Red Cell Distribution Width 14.9 H, Calcium Level 9.8 Vital Signs Date Time Temp Pulse Resp B/P (MAP) Pulse Ox O2 Delivery O2 Flow Rate FiO2 09/01/18 14:00 96.7 90 14 145/60 (88) 92 2.0 08/31/18 00:45 86 08/30/18 22:42 Nasal Cannula I&O- Last 24 Hours up to 6 AM 09/01/18 06:00 Intake Total 1440 ml Output Total 750 ml Balance 690 ml ELVIS VILLANUEVA MD Sep 01, 2018 14:49
[2018-09-01] MEDS: FUROSEMIDE 40 MG TAB PO SCH (16:59)
[2018-09-01] MEDS ORDERED: FUROSEMIDE 40 MG/4 ML VIAL (J1940) IV SCH (17:00)
[2018-09-01] MEDS ORDERED: FLEET ENEMA PR PRN (20:00)
[2018-09-01 22:00] VITALS: BP 124/72
[2018-09-02] MEDS: metroNIDAZOLE (FLAGYL) 500 MG TAB PO SCH ×4 (00:26→23:59)
[2018-09-02] MEDS: methylPREDNISolone INJ 125 MG/2 ML VIAL (J2930) IV SCH ×4 (00:27→23:59)
[2018-09-02] MEDS: IPRATROPIUM 0.5MG/ALBUTEROL 2.5MG INH SOL UD 3ML (DUONEB)(J7620) NEB SCH ×6 (03:21→23:11)
[2018-09-02 06:00] VITALS: BP 143/83
[2018-09-02] MEDS: HEPARIN SOD (PORCINE) 5000 UNITS/ML VIAL SC SCH (06:00)
[2018-09-02 07:21] LABS: HEMATOCRIT 43.8 % (36.0-47.0); HEMOGLOBIN 13.6 g/dl (12.0-15.5); MEAN CORPUSCULAR HGB CONC 31.1 g/dl (32.0-36.5); MEAN CORPUSCULAR VOLUME 90.1 fl (80.0-96.0); PLATELET COUNT, AUTOMATED 294 10^3/uL (150-450); RED BLOOD COUNT 4.86 10^6/uL (4.00-5.40); WHITE BLOOD COUNT 14.7 10^3/uL (4.0-10.0)
[2018-09-02] MEDS: SYMBICORT 160/4.5MCG INHALER 6GM INH SCH ×2 (07:36→21:27)
[2018-09-02 07:47] LABS: CALCIUM LEVEL 9.6 MG/DL (8.8-10.2); CREATININE FOR GFR 1.13 MG/DL (0.55-1.30); GLOMERULAR FILTRATION RATE 52.1 (>45); POTASSIUM SERUM 4.1 MEQ/L (3.5-5.1)
[2018-09-02] MEDS: HumaLOG INSULIN (NovoLOG) PER UNIT SC SCH ×4 (08:53→20:12)
[2018-09-02] MEDS: guaiFENesin ER 600 MG TAB PO SCH ×2 (08:54→20:12)
[2018-09-02] MEDS: CEFDINIR 300 MG CAP (OMNICEF) PO SCH ×2 (08:54→20:11)
[2018-09-02] MEDS: FAMOTIDINE 20 MG TAB PO SCH (08:55)
[2018-09-02] MEDS: ASPIRIN 81 MG ENTERIC TAB PO SCH (08:55)
[2018-09-02] MEDS: FUROSEMIDE 40 MG TAB PO SCH ×2 (08:56→17:00)
[2018-09-02] MEDS: EUCERIN 120GM CREAM TOP SCH ×3 (08:56→20:12)
[2018-09-02] MEDS: LACTULOSE 20 GM/30 ML SYRUP UD PO SCH ×3 (12:00→23:59)
[2018-09-02] MEDS: NICOTINE 21MG/24HR 1 EA TRANSDERMAL TD PRN (13:05)
--- NOTE | 2018-09-02 13:50 | IPNPDOC ---
Text Note Date of Service The patient was seen on 09/02/18. NOTE Subjective: Patient is a 62-year-old female with a PMHx of HTN, Diastolic CHF, COPD on 3L O2, JIGNESH (not on CPAP, reports slide attendant working on getting her a BiPAP), Morbid Obesity, GERD who presented to the ER with 1 day episode of coughing, wheezing and shortness of breath with exertion. Patient noted that she was recently diagnosed with diverticulitis and had seen her primary care provider with provided her with clarithromycin and metronidazole for 10 days. In the emergency room, patient appeared to have exacerbation of her underlying lung disease and was admitted to the hospital service for further evaluation and treatment. Patient was seen and examined at the bedside. Patient notes that her breathing is doing better. Denies any significant wheezing today. Still reports a cough. Denies any abdominal pain. Still notes constipation. Reports bladder fullness, denies any burning sensation. Objective: Vitals (See below) General: Lying in bed, no acute distress, comfortable, AAOx3 HEENT: NC, AT CVS: RRR, +S1S2 Lungs: Air entry is fair bilaterally, no significant wheezing, rhonchi or rales on examination today Abdomen: Morbidly obese, soft without distention or tenderness Extremities: LE do not shown any evidence of edema, - Calf tenderness Assessment and plan: Shortness of breath - likely 2/2 underlying lung disease; - Presented to the ER physician as of breath, cough and wheezing; clinically patient has noted improvement in her breathing from the point arrival - Physical without any evidence of wheezing - Patient uses 3 L of oxygen at baseline - Lab work appears benign - ABG has been noted - CXR 08/30: No acute cardiopulmonary process appreciated. - c/w Solumedrol - will remain on current dose until wheezing subsides - c/w inhaled therapy as ordered Chronic hypoxic respiratory failure - likely 2/2 COPD - See above Recent history of acute diverticulitis - Patient has been prescribed antibiotics as an outpatient for her left lower quadrant abdominal pain - Will start Cefdinir (Antibiotic Day #1); DC clarithromycin (Completed 5 days); c/w Metronidazole (Antibiotic Day #6) Abnormal UA - possibly 2/2 UTI - Patient continues to experience bladder fullness; denies any dysuria - Urinalysis appears to have findings consistent with urinary tract infection - Urine culture 08/31: Escherichia coli - Will adjust antibiotics (See above) Elevation in Cr - Baseline creatinine ~1.1; creatinine currently at 1.3 - Will hold diuretics HTN - Currently not on medications Compensate Diastolic CHF - No evidence of exacerbation - ECHO 05/27: Probably normal LV systolic function, G2DD, No significant valvular disease, elevated CVP - Will hold diuretics (re: elevation in Cr); will likely resume diuretics within the next 24-48 hours JIGNESH - Currently patient is not on CPAP - She is indicated that her slide attendant is working on getting her a BiPAP Morbid Obesity - Complaining medical care Tobacco dependence - Advised smoking cessation - c/w Nicotine patch GERD - c/w Famotidine DVT prophylaxis - c/w Heparin Disposition: - Will adjust corticosteroid dose tomorrow; and transitioned to oral corticosteroids within 48 hours VS,Fishbone, I+O VS, Fishbone, I+O Laboratory Tests 09/02/18 06:11 Red Blood Count 4.86, Mean Corpuscular Volume 90.1, Mean Corpuscular Hemoglobin 28.0, Mean Corpuscular Hemoglobin Concent 31.1 L, Red Cell Distribution Width 15.0 H, Calcium Level 9.6 Vital Signs Date Time Temp Pulse Resp B/P (MAP) Pulse Ox O2 Delivery O2 Flow Rate FiO2 09/02/18 09:00 3.0 09/02/18 06:00 97.4 90 20 143/83 (103) 94 08/31/18 00:45 86 08/30/18 22:42 Nasal Cannula I&O- Last 24 Hours up to 6 AM 09/02/18 06:00 Intake Total 1880 ml Output Total 1650 ml Balance 230 ml ELVIS VILLANUEVA MD Sep 02, 2018 13:50
[2018-09-02 14:00] VITALS: BP 142/90
[2018-09-02] MEDS: ENOXAPARIN 40 MG/0.4 ML SYRINGE (J1650) SC SCH (17:00)
[2018-09-02 21:31] VITALS: O2SAT 91
[2018-09-02 22:00] VITALS: BP 134/75
[2018-09-03] MEDS: IPRATROPIUM 0.5MG/ALBUTEROL 2.5MG INH SOL UD 3ML (DUONEB)(J7620) NEB SCH ×6 (03:55→23:11)
[2018-09-03] MEDS: LACTULOSE 20 GM/30 ML SYRUP UD PO SCH ×4 (05:36→23:54)
[2018-09-03 06:00] VITALS: BP 139/71
[2018-09-03 06:43] LABS: HEMATOCRIT 44.5 % (36.0-47.0); HEMOGLOBIN 13.9 g/dl (12.0-15.5); MEAN CORPUSCULAR HEMOGLOBIN 27.5 pg (27.0-33.0); MEAN CORPUSCULAR HGB CONC 31.2 g/dl (32.0-36.5); MEAN CORPUSCULAR VOLUME 87.9 fl (80.0-96.0); PLATELET COUNT, AUTOMATED 304 10^3/uL (150-450); RED BLOOD COUNT 5.06 10^6/uL (4.00-5.40); WHITE BLOOD COUNT 13.1 10^3/uL (4.0-10.0)
[2018-09-03 07:13] LABS: CALCIUM LEVEL 9.1 MG/DL (8.8-10.2); CREATININE FOR GFR 1.27 MG/DL (0.55-1.30); GLOMERULAR FILTRATION RATE 45.5 (>45); POTASSIUM SERUM 3.6 MEQ/L (3.5-5.1)
[2018-09-03] MEDS: SYMBICORT 160/4.5MCG INHALER 6GM INH SCH ×2 (07:31→20:38)
[2018-09-03] MEDS: NICOTINE 21MG/24HR 1 EA TRANSDERMAL TD PRN (08:27)
[2018-09-03] MEDS: FAMOTIDINE 20 MG TAB PO SCH (08:27)
[2018-09-03] MEDS: methylPREDNISolone INJ 125 MG/2 ML VIAL (J2930) IV SCH ×2 (08:27→20:15)
[2018-09-03] MEDS: metroNIDAZOLE (FLAGYL) 500 MG TAB PO SCH ×3 (08:27→23:54)
[2018-09-03] MEDS: ASPIRIN 81 MG ENTERIC TAB PO SCH (08:29)
[2018-09-03] MEDS: traMADol 50 MG TAB PO PRN (08:29)
[2018-09-03] MEDS: FUROSEMIDE 40 MG TAB PO SCH (08:29)
[2018-09-03] MEDS: guaiFENesin ER 600 MG TAB PO SCH ×2 (08:30→20:15)
[2018-09-03] MEDS: ENOXAPARIN 40 MG/0.4 ML SYRINGE (J1650) SC SCH (08:30)
[2018-09-03] MEDS: EUCERIN 120GM CREAM TOP SCH ×3 (08:30→20:16)
[2018-09-03] MEDS: CEFDINIR 300 MG CAP (OMNICEF) PO SCH ×2 (08:30→20:15)
[2018-09-03] MEDS: HumaLOG INSULIN (NovoLOG) PER UNIT SC SCH ×4 (08:31→20:16)
--- NOTE | 2018-09-03 12:57 | IPNPDOC ---
Text Note Date of Service The patient was seen on 09/03/18. NOTE Subjective: Patient is a 62-year-old female with a PMHx of HTN, Diastolic CHF, COPD on 3L O2, JIGNESH (not on CPAP, reports medicine aide working on getting her a BiPAP), Morbid Obesity, GERD who presented to the ER with 1 day episode of coughing, wheezing and shortness of breath with exertion. Patient noted that she was recently diagnosed with diverticulitis and had seen her primary care provider with provided her with clarithromycin and metronidazole for 10 days. In the emergency room, patient appeared to have exacerbation of her underlying lung disease and was admitted to the hospital service for further evaluation and treatment. Patient was seen and examined at the bedside. Currently to his recent wheezing. He denies any significant cough. Notes her breathing is doing better than before. Denies chest pain or palpitations. Denies nausea, vomiting, abdominal pain, constipation or diarrhea. Objective: Vitals (See below) General: Lying in bed, no acute distress, comfortable, AAOx3 HEENT: NC, AT CVS: RRR, +S1S2 Lungs: There still appears to be wheezing at bilateral lung nava. No evidence of rhonchi or rales Abdomen: Morbidly obese, remains soft without distention or tenderness Extremities: Pitting edema is not appreciated - Calf tenderness Assessment and plan: Shortness of breath - likely 2/2 underlying lung disease; - Presented to the ER physician as of breath, cough and wheezing; clinically patient has noted improvement in her breathing from the point arrival - Physical with mild wheezing appreciated - Patient uses 3 L of oxygen at baseline - Lab work appears benign - ABG has been noted - CXR 08/30: No acute cardiopulmonary process appreciated. - c/w Solumedrol; will reduce frequency every 12 - c/w inhaled therapy as ordered Chronic hypoxic respiratory failure - likely 2/2 COPD - See above Recent history of acute diverticulitis - Patient has been prescribed antibiotics as an outpatient for her left lower quadrant abdominal pain - c/w Cefdinir (Antibiotic Day #2); DC clarithromycin (Completed 5 days); c/w Metronidazole (Antibiotic Day #7) Abnormal UA - possibly 2/2 UTI - Patient continues to experience bladder fullness; denies any dysuria - Urinalysis appears to have findings consistent with urinary tract infection - Urine culture 08/31: Escherichia coli - Will adjust antibiotics (See above) Compensated Diastolic CHF - No evidence of exacerbation - ECHO 05/27: Probably normal LV systolic function, G2DD, No significant valvular disease, elevated CVP - c/w diuresis Elevation in Cr - Baseline creatinine ~1.1 HTN - Currently not on medications JIGNESH - Currently patient is not on CPAP - She is indicated that her medicine aide is working on getting her a BiPAP Morbid Obesity - Complaining medical care Tobacco dependence - Advised smoking cessation - c/w Nicotine patch GERD - c/w Famotidine DVT prophylaxis - c/w Heparin Disposition: - Will reduce dose of corticosteroids today; transition to oral corticosteroids tomorrow VS,Fishbone, I+O VS, Fishbone, I+O Laboratory Tests 09/03/18 06:07 Red Blood Count 5.06, Mean Corpuscular Volume 87.9, Mean Corpuscular Hemoglobin 27.5, Mean Corpuscular Hemoglobin Concent 31.2 L, Red Cell Distribution Width 14.9 H, Calcium Level 9.1 Vital Signs Date Time Temp Pulse Resp B/P (MAP) Pulse Ox O2 Delivery O2 Flow Rate FiO2 09/03/18 11:21 3.0 09/03/18 08:59 18 09/03/18 06:00 97.4 76 139/71 (93) 90 09/02/18 21:31 BIPAP/CPAP 08/31/18 00:45 86 I&O- Last 24 Hours up to 6 AM 09/03/18 06:00 Intake Total 1500 ml Output Total 1475 ml Balance 25 ml ELVIS VILLANUEVA MD Sep 03, 2018 12:57
[2018-09-03 14:00] VITALS: BP 121/78
[2018-09-03 22:00] VITALS: BP 142/76
[2018-09-04] MEDS: PREPARATION H OINTMENT (HEMORRHOID) TOP PRN ×2 (02:51→20:45)
[2018-09-04] MEDS: IPRATROPIUM 0.5MG/ALBUTEROL 2.5MG INH SOL UD 3ML (DUONEB)(J7620) NEB SCH ×5 (04:00→20:00)
[2018-09-04] MEDS: LACTULOSE 20 GM/30 ML SYRUP UD PO SCH (05:00)
[2018-09-04 06:00] VITALS: BP 127/65
[2018-09-04 06:35] LABS: HEMATOCRIT 44.6 % (36.0-47.0); MEAN CORPUSCULAR HEMOGLOBIN 27.5 pg (27.0-33.0); MEAN CORPUSCULAR HGB CONC 31.4 g/dl (32.0-36.5); MEAN CORPUSCULAR VOLUME 87.6 fl (80.0-96.0); PLATELET COUNT, AUTOMATED 292 10^3/uL (150-450); RED BLOOD COUNT 5.09 10^6/uL (4.00-5.40); WHITE BLOOD COUNT 12.5 10^3/uL (4.0-10.0)
[2018-09-04 06:59] LABS: CALCIUM LEVEL 9.1 MG/DL (8.8-10.2); CREATININE FOR GFR 1.2 MG/DL (0.55-1.30); GLOMERULAR FILTRATION RATE 48.6 (>45); POTASSIUM SERUM 3.5 MEQ/L (3.5-5.1)
[2018-09-04] MEDS: SYMBICORT 160/4.5MCG INHALER 6GM INH SCH ×2 (07:41→21:15)
[2018-09-04] MEDS: methylPREDNISolone INJ 125 MG/2 ML VIAL (J2930) IV SCH ×2 (07:59→20:45)
[2018-09-04] MEDS: CEFDINIR 300 MG CAP (OMNICEF) PO SCH ×2 (07:59→20:45)
[2018-09-04] MEDS: ENOXAPARIN 40 MG/0.4 ML SYRINGE (J1650) SC SCH (07:59)
[2018-09-04] MEDS: FAMOTIDINE 20 MG TAB PO SCH (08:00)
[2018-09-04] MEDS: ASPIRIN 81 MG ENTERIC TAB PO SCH (08:00)
[2018-09-04] MEDS: FUROSEMIDE 40 MG TAB PO SCH (08:00)
[2018-09-04] MEDS: metroNIDAZOLE (FLAGYL) 500 MG TAB PO SCH (08:00)
[2018-09-04] MEDS: guaiFENesin ER 600 MG TAB PO SCH ×2 (08:00→20:46)
[2018-09-04] MEDS: HumaLOG INSULIN (NovoLOG) PER UNIT SC SCH ×4 (08:00→20:45)
[2018-09-04] MEDS: EUCERIN 120GM CREAM TOP SCH ×3 (08:01→20:46)
[2018-09-04] MEDS ORDERED: CEPACOL LOZENGE PO PRN (11:00)
[2018-09-04] MEDS: CETIRIZINE (ZyrTEC) 10 MG TAB PO SCH (12:20)
[2018-09-04 14:00] VITALS: BP 153/71
[2018-09-04] MEDS ORDERED: SODIUM CHLORIDE NASAL 0.65% SPRAY BTL (OCEAN) PRN (17:15)
[2018-09-04 22:00] VITALS: BP 148/73
[2018-09-04] MEDS ORDERED: LOPERAMIDE 2 MG CAP PO ONE (23:00)
[2018-09-05] MEDS: IPRATROPIUM 0.5MG/ALBUTEROL 2.5MG INH SOL UD 3ML (DUONEB)(J7620) NEB SCH ×4 (00:52→11:00)
[2018-09-05 06:00] VITALS: BP 144/79
[2018-09-05 07:22] LABS: HEMATOCRIT 44.5 % (36.0-47.0); MEAN CORPUSCULAR HEMOGLOBIN 27.8 pg (27.0-33.0); MEAN CORPUSCULAR HGB CONC 31.5 g/dl (32.0-36.5); MEAN CORPUSCULAR VOLUME 88.3 fl (80.0-96.0); PLATELET COUNT, AUTOMATED 280 10^3/uL (150-450); RED BLOOD COUNT 5.04 10^6/uL (4.00-5.40); WHITE BLOOD COUNT 12.3 10^3/uL (4.0-10.0)
[2018-09-05] MEDS: SYMBICORT 160/4.5MCG INHALER 6GM INH SCH (07:36)
[2018-09-05 07:43] LABS: CALCIUM LEVEL 8.6 MG/DL (8.8-10.2); CREATININE FOR GFR 1.15 MG/DL (0.55-1.30); GLOMERULAR FILTRATION RATE 51.1 (>45); POTASSIUM SERUM 3.7 MEQ/L (3.5-5.1)
[2018-09-05] MEDS: HumaLOG INSULIN (NovoLOG) PER UNIT SC SCH ×2 (08:06→14:22)
[2018-09-05] MEDS: methylPREDNISolone INJ 125 MG/2 ML VIAL (J2930) IV SCH (08:06)
[2018-09-05] MEDS: CETIRIZINE (ZyrTEC) 10 MG TAB PO SCH (08:07)
[2018-09-05] MEDS: FAMOTIDINE 20 MG TAB PO SCH (08:07)
[2018-09-05] MEDS: CEFDINIR 300 MG CAP (OMNICEF) PO SCH (08:07)
[2018-09-05] MEDS: FUROSEMIDE 40 MG TAB PO SCH (08:07)
[2018-09-05] MEDS: ENOXAPARIN 40 MG/0.4 ML SYRINGE (J1650) SC SCH (08:07)
[2018-09-05] MEDS: guaiFENesin ER 600 MG TAB PO SCH (08:07)
[2018-09-05] MEDS: EUCERIN 120GM CREAM TOP SCH (08:08)
[2018-09-05] MEDS: ASPIRIN 81 MG ENTERIC TAB PO SCH (08:08)
--- NOTE | 2018-09-05 09:25 | IPN ---
DATE: 09/04/2018 SUBJECTIVE: The patient is examined at bedside. She states that her breathing is much improved and she is no longer wheezing. She states that she ambulated in the hallway yesterday. She looped around prison in the hallway and then headed back to her room without any issues or any shortness of breath. She is at her baseline 3 liters nasal cannula. She is bringing up sputum and utilizing her Acapella. No complaints today. She is eager to go home. OBJECTIVE: VITAL SIGNS: Temperature 96.7, pulse 73, respirations 20, blood pressure 127/65, mean arterial pressure of 85, pulse oximetry 92% on 3 liters nasal cannula. GENERAL: Resting comfortably in bed. No acute distress. Comfortable. Alert and oriented times three. HEENT: Normocephalic, atraumatic. No pharyngeal exudate or erythema. Anicteric sclerae. CARDIAC: Regular rate and rhythm. No audible murmurs. LUNGS: Equal chest rise bilaterally. Mild wheezing on bilateral lung nava. No rhonchi or rales. She can speak in full sentences with a mild cough here and there. She is on her chronic 3 liters nasal cannula. ABDOMEN: Obese, soft, nontender, nondistended. Positive bowel sounds. EXTREMITIES: Trace edema in bilateral lower extremities. Nontender calves bilaterally. Able to move all extremities. LABORATORIES: WBC 12.5, hemoglobin and hematocrit 14 and 44.6, platelets 292. Electrolytes normal. BUN and creatinine 34 and 1.2. ASSESSMENT AND PLAN: 1. Shortness of breath, likely chronic obstructive pulmonary disease (COPD) exacerbation. The patient is subjectively feeling much improved and back on her baseline 3 liters nasal cannula. She is still bringing up some sputum with her cough and mild wheezing on lung sounds but otherwise is improving and able to ambulate in the hallway at her baseline distance without any shortness of breath currently. Her white count continues to trend down. We will continue IV steroids today and plan to transition to oral steroid taper starting tomorrow as her wheezing improves. Continue Acapella, Mucinex, DuoNeb, albuterol, Symbicort. 2. Chronic hypoxic respiratory failure. The patient is on 3 liters chronically. She is at her baseline today. 3. Positive UA with patient complaining of bladder fullness. Her urine culture has grown Escherichia (E) coli. She is on day #3 of Cefdinir. 4. Recent history of acute diverticulitis. The patient was already on antibiotics at the time of admission. She is currently on day #3 of Cefdinir and is status post 5 full days of clarithromycin and 7 days of metronidazole, which we will discontinue today. She has no abdominal complaints today and is otherwise stable. 5. Diarrhea. The patient states that she is having frequent bowel movements, as well as very loose stools that started yesterday. Per her chart, she had 14 bowel movements yesterday. We will discontinue her Lactulose and Fleet enemas and monitor for improvement. This may also be secondary to her antibiotics. She denies any blood in her stools or any dark/tarry stools. No fevers, chills, nausea or vomiting. Of note, she is on loperamide at home, which we will consider resuming should she not improve. Consider Clostridium (C.) difficile testing if she does not improve as well, but currently, given that her white count is trending down and she is afebrile, we will monitor. 6. Compensated diastolic congestive heart failure (CHF). Per her last echo on 05/27/2018, probably normal left ventricular systolic function, grade 2 diastolic dysfunction. No significant valvular disease. Positive elevated central venous pressure. Continue her home Lasix 40 mg by mouth daily. 7. Hypertension. Well controlled without any antihypertensives. Continue Lasix. 8. Obstructive sleep apnea. She has bilevel positive airway pressure (BIPAP) at bedside when examined today. In the outpatient setting, she states that her vacuum tester cans was working on setting her up with BiPAP. 9. Morbid obesity. Body Mass Index (BMI) is 40, complicates care. 10. Tobacco use disorder. She has been counseled on smoking cessation and is on a nicotine patch during this admission. 11. Gastroesophageal reflux disease (GERD). Continue with famotidine. 12. Deep vein thrombosis (DVT) prophylaxis. Lovenox subcutaneously. DISPOSITION: We will switch to oral steroids, monitor diarrhea, likely discharge in the next 24 to 48 hours. My faculty preceptor for this patient encounter was physically present during the encounter and was fully available. All aspects of the patient interview, examination, medical decision making process, and medical care plan development were reviewed and approved by the faculty preceptor. The faculty preceptor is aware and concurs with the plan as stated in the body of this note and will attest to such by his/her co-signature.
[2018-09-05] MEDS ORDERED: PRED10TA2 PO (12:41)
[2018-09-05] MEDS ORDERED: CEFD300CAP PO (12:41)
[2018-09-06] MEDS ORDERED: predniSONE 20 MG TAB PO SCH (09:00)
--- NOTE | 2018-09-08 14:09 | DS.PDOC ---
Discharge Summary General Date of Admission Aug 30, 2018 at 22:58 Date of Discharge 09/05/18 Attending Physician: ABHISHEK ARENAS MD Discharge Summary PROCEDURES PERFORMED DURING STAY: None. ADMITTING DIAGNOSES: 1. Acute On Chronic Resp Failure W Hypoxia. DISCHARGE DIAGNOSES: 1. Acute On Chronic Resp Failure W Hypoxia 2/2 COPD exacerbation 2. UTI, +E. Coli 3. Recent history of acute diverticulitis, s/p 5days Clarithromycin, 7days Flagyl 4. Worsening of her chronic alternating diarrhea & constipation, possible IBS COPD chronically on 3L NC Chronic diastolic CHF Hypertension JIGNESH recently switched from CPAP to BiPAP per her concrete form setter and finisher Morbid obesity Tobacco use disorder GERD COMPLICATIONS/CHIEF COMPLAINT: Acute On Chronic Resp Failure W Hypoxia. HISTORY OF PRESENT ILLNESS: 62-year-old female presented to the ER for 1 day of worsening cough, wheezing, dyspnea on exertion. She had no chest pain. Of note, she was recently diagnosed with diverticulitis by her PCP and placed on clarithromycin and Flagyl for 10 days which she did not fill. She had no other complaints and was admitted for her acute on chronic hypoxia. HOSPITAL COURSE: Patient was started on IV steroids, DuoNeb's, albuterol. Given her recent diverticulitis, she was started Cefdinir to also cover for her possible URI. She was placed on BiPAP while sleeping for her JIGNESH, and on nicotine patch for tobacco dependence. She ultimately began to improve and wheezing lessened, and was switched from IV to by mouth steroids and back to her baseline 3L. She ambulated hallways well without issue, and was eager to go home. Of note, she was noted to have worsening of her diarrhea in the hospital. She stated she normally alternates between consitpation and diarrhea, for which she takes stool softeners and loperamide at home. She was constipate when she was admitted, and now had 14 loose watery bowel movements in one day. Her lactulose and Fleet enemas were d/c'ed and she was later restarted on Loperimide. She improved the next day and felt back to her normal self and safe for discharge. DISCHARGE MEDICATIONS: Please see below. ALLERGIES: Please see below. PHYSICAL EXAMINATION ON DISCHARGE: VITAL SIGNS: Please see below. GENERAL: Resting comfortably in bed. No acute distress. Comfortable. Alert and oriented times three. HEENT: Normocephalic, atraumatic. No pharyngeal exudate or erythema. Anicteric sclerae. CARDIAC: Regular rate and rhythm. No audible murmurs. LUNGS: Equal chest rise bilaterally. Mild wheezing on bilateral lung nava. No rhonchi or rales. She can speak in full sentences with a mild cough here and there. She is on her chronic 3 liters nasal cannula. ABDOMEN: Obese, soft, nontender, nondistended. Positive bowel sounds. EXTREMITIES: Trace edema in bilateral lower extremities. Nontender calves bilaterally. Able to move all extremities. LABORATORY DATA: Please see below. IMAGIN08/30/18 cxr: No acute cardiopulmonary process appreciated. PROGNOSIS: good ACTIVITY: As tolerated. DIET: consistent carb, 2g sodium, low fat DISPOSITION: home DISCHARGE INSTRUCTIONS: 1. Follow-up with PCP within a week 2. Return here for emergency 3. Complete steroid taper DISCHARGE CONDITION: Stable. TIME SPENT ON DISCHARGE: Greater than 35 minutes. Vital Signs/I&Os Vital Signs Date Time Temp Pulse Resp B/P (MAP) Pulse Ox O2 Delivery O2 Flow Rate FiO2 09/05/18 07:45 3.0 09/05/18 06:00 97.2 89 19 144/79 (100) 97 09/02/18 21:31 BIPAP/CPAP 08/31/18 00:45 86 I&O- Last 24 Hours up to 6 AM 09/05/18 06:00 Intake Total 2280 ml Output Total 200 ml Balance 2080 ml Laboratory Data Labs 24H Laboratory Tests 2 09/04/18 20:32: Bedside Glucose (Misc Panel) 373H 09/05/18 06:33: Nucleated Red Blood Cells % (auto) 0.0, Anion Gap 7L, Glomerular Filtration Rate 51.1, Blood Urea Nitrogen 32H, Creatinine 1.15, Sodium Level 141, Potassium Level 3.7, Chloride Level 103, Carbon Dioxide Level 31, Calcium Level 8.6L 09/05/18 11:51: Bedside Glucose (Misc Panel) 297H CBC/BMP Laboratory Tests 09/05/18 06:33 Red Blood Count 5.04, Mean Corpuscular Volume 88.3, Mean Corpuscular Hemoglobin 27.8, Mean Corpuscular Hemoglobin Concent 31.5 L, Red Cell Distribution Width 14.6 H, Calcium Level 8.6 L FSBS Laboratory Tests Test 09/04/18 20:32 09/05/18 11:51 Range/Units Bedside Glucose (Misc Panel) 373 297 80-115 MG/DL Microbiology Microbiology 08/30/18 Blood Culture - Final, Complete NO GROWTH AFTER 5 DAYS 08/30/18 Blood Culture - Final, Complete NO GROWTH AFTER 5 DAYS 08/31/18 Urine Culture - Final, Complete Escherichia Coli Discharge Medications Scheduled (Mucinex Fast-Max Cold Flu 7-01-311-325 mg) 1 Tab Tab, 1 TAB PO DAILY, (Reported) Aspirin (Aspirin EC) 81 Mg Tabec, 81 MG PO DAILY, (Reported) Betamethasone/Clotrimazole (Clotrimazole/Betamethason 1-0.05 %) 1 Dose/15 Gm Cream, 1 DOSE TOP BID, (Reported) USES ON ELBOWS Budesonide/Formoterol (Symbicort 160-4.5 Mcg/Act) 60 Puff/Inhaler Aers, 2 PUFF INH BID, (Reported) Cefdinir (Cefdinir) 300 Mg Cap, 300 MG PO BID Furosemide (Furosemide) 40 Mg Tab, 40 MG PO DAILY, (Reported) Nicotine (Nicotine Step 1) 21 Mg/24 Hr Dis, 21 MG TD DAILY, (Reported) Prednisone (Prednisone) 10 Mg Tab, 10 MG PO TAPER Take 4 tabs daily x 3 days, then 3 tabs daily x 3 days, then 2 tabs daily x 3 days, then 1 tab daily x 3 days and stop Ranitidine HCl (Ranitidine HCl) 300 Mg Tab, 1 TAB PO DAILY, (Reported) Scheduled PRN Albuterol Sulfate (Albuterol Sulfate) 2.5 Mg/3 Ml Nebu, 2.5 MG INH Q4H PRN for SHORTNESS OF BREATH, (Reported) Albuterol Sulfate (Proair Hfa) 108 Mcg/Act Aer, 2 PUFF INH Q4H PRN for SHORTNESS OF BREATH, (Reported) Diphenhydramine HCl (Diphenhist) 25 Mg Cap, 25 MG PO Q6H PRN for ALLERGIC REACTION, (Reported) Loperamide HCl (Loperamide HCl) 2 Mg Cap, 2 MG PO Q6H PRN for AFTER EACH LOOSE STOOL, (Reported) Tramadol HCl (Tramadol HCl) 50 Mg Tab, 50 MG PO QID PRN for PAIN, (Reported) Allergies Coded Allergies: Penicillins (Verified Allergy, Intermediate, HIVES, 09/02/18) pt has had cefdinir in the past Quinolones (Verified Allergy, Mild, RASH, 08/30/18) venlafaxine (Verified Allergy, Unknown, 08/30/18) aripiprazole (Verified Adverse Reaction, Intermediate, TACHYCARDIA, 08/30/18) Sulfa (Sulfonamide Antibiotics) (Verified Adverse Reaction, Mild, VOMITING, 08/30/18) Macrolide Antibiotics (Verified Adverse Reaction, Unknown, WITH ERYTHRO ONLY. CAN TAKE AZITHRO, 08/30/18) Tetracyclines (Verified Adverse Reaction, Unknown, TCN ONLY. CAN TAKE DOXY w/o PROBLEM, 08/30/18) GME ATTESTATION GME ATTESTATION My faculty preceptor for this patient encounter was physically present during e encounter and was fully available. All aspects of the patient interview, examination, medical decision making process, and medical care plan development were reviewed and approved by the faculty preceptor. The faculty preceptor is aware and concurs with the plan as stated in the body of this note and will attest to such by his/her cosignature. SHARRON WALTERS DO Sep 05, 2018 19:55
== END 2018-09-05 14:30 | disposition home health service (06) | DRG 190 ==
LOC: EDBD 19:41 → M ED 19:41 → M ED INP 22:58 → M MS5PR 08-31 00:35
PROVIDERS: ADMIT Internal Medicine; ATTEND Internal Medicine
DX: J44.1 Chronic obstructive pulmonary disease with (acute) exacerbation (principal); J96.21 Acute and chronic respiratory failure with hypoxia; Z68.41 Body mass index [BMI] 40.0-44.9, adult; I50.32 Chronic diastolic (congestive) heart failure; N39.0 Urinary tract infection, site not specified; E66.01 Morbid (severe) obesity due to excess calories; F17.200 Nicotine dependence, unspecified, uncomplicated; K21.9 Gastro-esophageal reflux disease without esophagitis; B96.29 Other Escherichia coli [E. coli] as the cause of diseases classified elsewhere; Z79.82 Long term (current) 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; Z79.899 Other long term (current) drug therapy; Z88.0 Allergy status to penicillin; Z88.2 Allergy status to sulfonamides; Z88.8 Allergy status to other drugs, medicaments and biological substances

== ENCOUNTER 2018-10-08 13:20 | Inpatient (IN) | payer MEDICARE, MEDICAID ==
[~2018-10-08] VITALS: Ht 167.6 cm; Wt 65.5 kg
[~2018-10-08 13:20] MED LIST changes: +ASPI81TAEC PO; +CLAR500T PO; +CLOT1CRE71 TOP; +METR-265 PO; +MUCITAB PO
[2018-10-08] MEDS ORDERED: ONDANSETRON 4MG/2ML VIAL (J2405) IV ONE (14:00)
[2018-10-08] MEDS: MORPHINE 2 MG/ML 1ML SYRINGE (J2270) IV PRN ×2 (14:06→16:14)
[2018-10-08] MEDS: GASTROGRAFIN SOLUTION 30ML PO SCH ×2 (14:24→14:50)
[2018-10-08 14:26] LABS: BASO # 0.1 10^3/uL (0.0-0.2); BASO % 0.4 % (0.0-1.0); EOS # 0.1 10^3/uL (0.0-0.50); EOS % 0.7 % (0.0-3.0); HEMATOCRIT 40.7 % (36.0-47.0); HEMOGLOBIN 12.7 g/dl (12.0-15.5); LYMPH % 15.2 % (24.0-44.0); MEAN CORPUSCULAR HEMOGLOBIN 27.7 pg (27.0-33.0); MEAN CORPUSCULAR HGB CONC 31.2 g/dl (32.0-36.5); MEAN CORPUSCULAR VOLUME 88.7 fl (80.0-96.0); MONO # 0.6 10^3/uL (0.0-0.8); MONO % 4.5 % (0.0-5.0); NEUTROPHILS % 77.6 % (36.0-66.0); PLATELET COUNT, AUTOMATED 247 10^3/uL (150-450); RED BLOOD COUNT 4.59 10^6/uL (4.00-5.40); WHITE BLOOD COUNT 12.9 10^3/uL (4.0-10.0)
[2018-10-08 14:38] LABS: CALCIUM LEVEL 8.8 MG/DL (8.8-10.2); CREATININE FOR GFR 1.2 MG/DL (0.55-1.30); GLOMERULAR FILTRATION RATE 48.6 (>45); POTASSIUM SERUM 3.9 MEQ/L (3.5-5.1)
[2018-10-08] MEDS ORDERED: ISOVUE-370 76% 100ML VIAL (Q9967) As Ordered ONE (15:50)
[2018-10-08] MEDS ORDERED: metroNIDAZOLE 500 MG in APPROPRIATE DILUENT 1 EA IV ONE (16:45)
[2018-10-08] MEDS ORDERED: cefTRIAXone SOD 1 GM in D5W MINI-BAG PLUS 50 ML IV ONE (16:45)
--- NOTE | 2018-10-08 17:10 | HPEPDOC ---
[facility] Medical History & Physical Date of Admission October 08, 2018 History and Physical CHIEF COMPLAINT: Abd pain HISTORY OF PRESENT ILLNESS: 62 yo female for 4 days of diarrhea and abdominal pain. Patient states 7 days ago she was having bright red blood per rectum, and followed up with her PCP. States her BRBPR somewhat improved, but then her d iarrhea and abdominal pain started. Denies chest pain, shortness of breath, n/v/d/, headaches. PAST MEDICAL HISTORY: 1. chronic resp failure 2. recent diverticulitis 3. COPD on 3L 4. HFpEF 5. HTN 6. JIGNESH/BiPAP 7. Morbid obesity 8. nicotine addiction 9. GERD HOME MEDICATIONS: Please see below. PHYSICAL EXAMINATION: VITAL SIGNS: see below General: NAD, lying comfortably in bed, somewhat disheveled HEENT: NC/AT, EOMI, hirsute Lungs: CTA, diminished breath sounds Heart: +S1S2 Abd: morbidly obese, soft, +BS,NT Ext: trace peripheral edema LABORATORY DATA: See below. MICROBIOLOGY: Please see below. ASSESSMENT: 62 yo female for acute recurrent diverticulitis: #acute diverticulitis - ceftriaxone/flagyl - NPO/IVF #COPD/chronic resp failure - continue supplemental oxygen - continue respiratory treatments #HFpEF #HTN #JIGNESH/BiPAP #Morbid obesity #nicotine addiction #GERD Dispo: IV abx for acute recurrent diverticulitis; expecting > 2 midnights Vital Signs Vital Signs Date Time Temp Pulse Resp B/P (MAP) Pulse Ox O2 Delivery O2 Flow Rate FiO2 10/08/18 16:14 20 2.0 10/08/18 14:50 94 92 10/08/18 14:45 104/56 (72) 10/08/18 13:28 97.3 Room Air Laboratory Data Labs 24H Laboratory Tests 2 10/08/18 14:03: Immature Granulocyte % (Auto) 1.6, White Blood Count 12.9H, Red Blood Count 4.59, Hemoglobin 12.7, Hematocrit 40.7, Mean Corpuscular Volume 88.7, Mean Corpu scular Hemoglobin 27.7, Mean Corpuscular Hemoglobin Concent 31.2L, Red Cell Distribution Width 14.6H, Platelet Count 247, Neutrophils (%) (Auto) 77.6H, Lymphocytes (%) (Auto) 15.2L, Monocytes (%) (Auto) 4.5, Eosinophils (%) (Auto) 0.7, Basophils (%) (Auto) 0.4, Neutrophils # (Auto) 10.0H, Lymphocytes # (Auto) 2.0, Monocytes # (Auto) 0.6, Eosinophils # (Auto) 0.1, Basophils # (Auto) 0.1, Nucleated Red Blood Cells % (auto) 0.0, Anion Gap 5L, Glomerular Filtration Rate 48.6, Blood Urea Nitrogen 7, Creatinine 1.20, Sodium Level 139, Potassium Level 3.9, Chloride Level 103, Carbon Dioxide Level 31, Calcium Level 8.8 CBC/BMP Laboratory Tests 10/08/18 14:03 Red Blood Count 4.59, Mean Corpuscular Volume 88.7, Mean Corpuscular Hemoglobin 27.7, Mean Corpuscular Hemoglobin Concent 31.2 L, Red Cell Distribution Width 14.6 H, Neutrophils (%) (Auto) 77.6 H, Lymphocytes (%) (Auto) 15.2 L, Monocytes (%) (Auto) 4.5, Eosinophils (%) (Auto) 0.7, Basophils (%) (Auto) 0.4, Neutrophils # (Auto) 10.0 H, Lymphocytes # (Auto) 2.0, Monocytes # (Auto) 0.6, Eosinophils # (Auto) 0.1, Basophils # (Auto) 0.1, Calcium Level 8.8 Microbiology Microbiology 10/08/18 Blood Culture, Received Pending 10/08/18 Blood Culture, Received Pending Home Medications Scheduled Aspirin (Aspirin EC) 81 Mg Tabec, 81 MG PO DAILY Budesonide/Formoterol (Symbicort 160-4.5 Mcg Inhaler) 60 Puff/Inhaler Aers, 2 PUFF INH BID Clotrimazole/Betamethasone Dip (Clotrimazole-Betamethasone Crm) 1 Dose/15 Gm Cream, 1 DOSE TOP BID USES ON ELBOWS Furosemide (Furosemide) 40 Mg Tab, 40 MG PO DAILY Nicotine (Nicotine Patch) 21 Mg Patch.td24, 1 PATCH TOP DAILY for smoking cessation Prednisone (Prednisone) 20 Mg Tablet, 20 MG PO ASDIRECTED 20MG BID FOR 5 DAYS, 20MG DAILY FOR 5 DAYS, 10MG DAILY FOR 6 DAYS THEN 10MG EVERY OTHER DAY FOR 6 DAYS Ranitidine HCl (Ranitidine HCl) 300 Mg Tab, 1 TAB PO DAILY Scheduled PRN Albuterol Sulf (Albuterol Sulfate) 2.5 Mg/3 Ml Nebu, 2.5 MG INH Q4H PRN for SHORTNESS OF BREATH Albuterol Sulfate (Proair Hfa) 108 Mcg/Act Aer, 2 PUFF INH Q4H PRN for SHORTNESS OF BREATH Diphenhydramine HCl (Diphenhist) 25 Mg Cap, 25 MG PO Q6H PRN for ALLERGIC REACTION Guaifenesin (Mucinex) 600 Mg Tab.er.12h, 600 MG PO BID PRN for CONGESTION Loperamide HCl (Loperamide) 2 Mg Cap, 2 MG PO Q6H PRN for AFTER EACH LOOSE STOOL Tramadol HCl (Tramadol HCl) 50 Mg Tab, 50 MG PO QID PRN for PAIN Allergies Coded Allergies: Penicillins (Verified Allergy, Intermediate, HIVES, 09/02/18) pt has had cefdinir in the past Quinolones (Verified Allergy, Mild, RASH, 08/30/18) aripiprazole (Verified Adverse Reaction, Intermediate, TACHYCARDIA, 08/30/18) Sulfa (Sulfonamide Antibiotics) (Verified Adverse Reaction, Mild, VOMITING, BLISTERS, TACHYCARDIA, 10/08/18) Macrolide Antibiotics (Verified Adverse Reaction, Unknown, ITCHY, HIVES, 10/08/18) Tetracyclines (Verified Adverse Reaction, Unknown, TACHYCARDIA, BLISTERS, HIVES, 10/08/18) venlafaxine (Verified Adverse Reaction, Unknown, INCREASED HR, 10/08/18) MOISES REAGAN MD October 08, 2018 17:10
[2018-10-08] MEDS ORDERED: NICO21PAT TOP (17:24)
[2018-10-08] MEDS ORDERED: MUCI600T31 PO (17:24)
[2018-10-08] MEDS ORDERED: PRED20TA PO (17:24)
[2018-10-08] MEDS: NS 1,000 ML IV SCH (17:30)
[2018-10-08] MEDS ORDERED: guaiFENesin ER 600 MG TAB PO PRN (17:45)
[2018-10-08] MEDS ORDERED: diphenhydrAMINE 25 MG CAP PO PRN (17:45)
[2018-10-08] MEDS ORDERED: ALBUTEROL 90 MCG/ACT 8GM HFA INHALER INH PRN (17:45)
[2018-10-08 18:30] VITALS: BP 130/89
[2018-10-08] MEDS: FUROSEMIDE 40 MG TAB PO SCH (18:49)
[2018-10-08] MEDS: NICOTINE 21MG/24HR 1 EA TRANSDERMAL TOP SCH (18:49)
[2018-10-08] MEDS: traMADol 50 MG TAB PO PRN ×2 (18:52→23:25)
[2018-10-08] MEDS: SYMBICORT 160/4.5MCG INHALER 6GM INH SCH (21:00)
[2018-10-08 22:00] VITALS: BP 107/73
[2018-10-08] MEDS: predniSONE 20 MG TAB PO SCH (22:34)
[2018-10-08] MEDS: SIMETHICONE 80 MG CHEW TAB PO PRN (23:25)
[2018-10-09] MEDS: metroNIDAZOLE 500 MG in APPROPRIATE DILUENT 1 EA IV SCH ×3 (01:57→16:58)
[2018-10-09 05:53] LABS: BASO % 0.3 % (0.0-1.0); EOS % 0.1 % (0.0-3.0); HEMATOCRIT 41.2 % (36.0-47.0); HEMOGLOBIN 12.9 g/dl (12.0-15.5); LYMPH # 0.8 10^3/uL (1.5-4.5); LYMPH % 6.6 % (24.0-44.0); MEAN CORPUSCULAR HGB CONC 31.3 g/dl (32.0-36.5); MEAN CORPUSCULAR VOLUME 89.6 fl (80.0-96.0); MONO # 0.2 10^3/uL (0.0-0.8); MONO % 1.8 % (0.0-5.0); NEUTROPHILS % 89.6 % (36.0-66.0); PLATELET COUNT, AUTOMATED 247 10^3/uL (150-450); WHITE BLOOD COUNT 12.2 10^3/uL (4.0-10.0)
[2018-10-09 06:00] VITALS: BP 134/62
[2018-10-09 06:10] LABS: ALBUMIN 2.9 GM/DL (3.2-5.2); BILIRUBIN,TOTAL 0.3 MG/DL (0.2-1.0); CALCIUM LEVEL 8.9 MG/DL (8.8-10.2); CREATININE FOR GFR 1.17 MG/DL (0.55-1.30); GLOMERULAR FILTRATION RATE 50.1 (>45); POTASSIUM SERUM 4.5 MEQ/L (3.5-5.1); TOTAL PROTEIN 6.6 GM/DL (6.4-8.2)
--- NOTE | 2018-10-09 07:39 | REP ---
CT ABDOMEN AND PELVIS WITH ORAL AND IV CONTRAST: TECHNIQUE: Axial contrast enhanced images from the lung bases to the pubic symphysis using 100 mL Isovue 370 intravenous contrast material with multiplanar reformations. Visualized lung bases demonstrate fibrotic changes with mild atelectatic change in the lingula inferiorly. There appears to be fatty infiltration of the liver. The patient has had a prior cholecystectomy. Calcified granuloma is seen in the left dome of the liver. I do not see significant biliary dilatation. Spleen, adrenals, and pancreas are unremarkable. There is a small cyst in the mid left kidney. There is a larger cyst in the lower pole of the left kidney which measures 2.5 cm in diameter. There is no hydronephrosis bilaterally. There is mild atherosclerotic calcification of the abdominal aorta without aneurysm. Small upper abdominal ventral hernia is seen containing a small amount of fat with no evidence of incarceration. Sigmoid diverticulosis is noted with diffuse thickening and streaky inflammatory changes in the pericolonic fat consistent with acute diverticulitis. There is no abscess, free air or free fluid. No pelvic mass is seen. Urinary bladder is mildly distended and grossly unremarkable. There are metallic clips in the anterior pelvis. IMPRESSION: Findings compatible with acute diverticulitis of the sigmoid colon. No free air, free fluid or abscess. Electronically Signed by Herminio Hernandez MD 10/09/2018 05:20 P
[2018-10-09] MEDS: predniSONE 20 MG TAB PO SCH ×2 (08:46→22:42)
[2018-10-09] MEDS: NICOTINE 21MG/24HR 1 EA TRANSDERMAL TOP SCH (08:46)
[2018-10-09] MEDS: NS 1,000 ML IV SCH (08:46)
[2018-10-09] MEDS: FUROSEMIDE 40 MG TAB PO SCH (08:46)
[2018-10-09] MEDS: ASPIRIN 81 MG ENTERIC TAB PO SCH (08:46)
[2018-10-09] MEDS: SYMBICORT 160/4.5MCG INHALER 6GM INH SCH ×2 (09:11→21:00)
[2018-10-09 09:12] VITALS: O2SAT 93
--- NOTE | 2018-10-09 10:18 | IPNPDOC ---
Text Note Date of Service The patient was seen on 10/09/18. NOTE Subjective: patient seen and examined at bedside. No acute overnight events. Patient states her abdominal pain has significiantly improved, and is requesting for diet. No other medical complaints. Denies chest pain, shortness of breath, headaches, N/V/D. Objecitve: VITAL SIGNS: see below General: NAD, lying comfortably in bed HEENT: NC/AT, EOMI, hirsute Lungs: CTA, diminished breath sounds Heart: +S1S2 Abd: morbidly obese, soft, +BS, mild tenderness Ext: trace peripheral edema LABORATORY DATA: See below. MICROBIOLOGY: Please see below. ASSESSMENT/PLAN: 62 yo female for acute recurrent diverticulitis: #acute diverticulitis - IV Abx - ceftriaxone/flagyl - clear liquids - AAT #COPD/chronic resp failure - continue supplemental oxygen - continue respiratory treatments #HFpEF - compensated #HTN #JIGNESH/BiPAP #Morbid obesity #nicotine addiction #GERD Dispo: IV abx for acute recurrent diverticulitis; expecting > 2 midnights VS,Fishbone, I+O VS, Fishbone, I+O Laboratory Tests 10/08/18 14:03 Red Blood Count 4.59, Mean Corpuscular Volume 88.7, Mean Corpuscular Hemoglobin 27.7, Mean Corpuscular Hemoglobin Concent 31.2 L, Red Cell Distribution Width 14.6 H, Neutrophils (%) (Auto) 77.6 H, Lymphocytes (%) (Auto) 15.2 L, Monocytes (%) (Auto) 4.5, Eosinophils (%) (Auto) 0.7, Basophils (%) (Auto) 0.4, Neutrophils # (Auto) 10.0 H, Lymphocytes # (Auto) 2.0, Monocytes # (Auto) 0.6, Eosinophils # (Auto) 0.1, Basophils # (Auto) 0.1, Calcium Level 8.8 10/09/18 05:31 Red Blood Count 4.60, Mean Corpuscular Volume 89.6, Mean Corpuscular Hemoglobin 28.0, Mean Corpuscular Hemoglobin Concent 31.3 L, Red Cell Distribution Width 14.3, Neutrophils (%) (Auto) 89.6 H, Lymphocytes (%) (Auto) 6.6 L, Monocytes (%) (Auto) 1.8, Eosinophils (%) (Auto) 0.1, Basophils (%) (Auto) 0.3, Neutrophils # (Auto) 11.0 H, Lymphocytes # (Auto) 0.8 L, Monocytes # (Auto) 0.2, Eosinophils # (Auto) 0.0, Basophils # (Auto) 0.0, Calcium Level 8.9, Aspartate Amino Transf (AST/SGOT) 35, Alanine Aminotransferase (ALT/SGPT) 59, Alkaline Phosphatase 57, Total Bilirubin 0.3, Total Protein 6.6, Albumin 2.9 L Vital Signs Date Time Temp Pulse Resp B/P (MAP) Pulse Ox O2 Delivery O2 Flow Rate FiO2 10/09/18 09:12 82 10/09/18 09:12 93 Nasal Cannula 2.0 10/09/18 06:00 97.6 20 134/62 (86) I&O- Last 24 Hours up to 6 AM 10/09/18 06:00 Intake Total 270 ml Output Total 750 ml Balance -480 ml MOISES REAGAN MD October 09, 2018 10:18
[2018-10-09] MEDS: ALBUTEROL SULFATE 2.5 MG/0.5 ML INH NEB SOLN INH PRN ×2 (12:10→16:06)
[2018-10-09 14:00] VITALS: BP 142/75
[2018-10-09] MEDS: cefTRIAXone SOD 1 GM in D5W MINI-BAG PLUS 50 ML IV SCH (16:12)
[2018-10-10] MEDS: metroNIDAZOLE 500 MG in APPROPRIATE DILUENT 1 EA IV SCH ×3 (02:57→17:08)
[2018-10-10 06:00] VITALS: BP 148/69
[2018-10-10] MEDS: SYMBICORT 160/4.5MCG INHALER 6GM INH SCH ×2 (08:09→20:25)
[2018-10-10] MEDS: ASPIRIN 81 MG ENTERIC TAB PO SCH (09:16)
[2018-10-10] MEDS: NICOTINE 21MG/24HR 1 EA TRANSDERMAL TOP SCH (09:16)
[2018-10-10] MEDS: FUROSEMIDE 40 MG TAB PO SCH (09:16)
[2018-10-10] MEDS: predniSONE 20 MG TAB PO SCH ×2 (09:16→19:25)
--- NOTE | 2018-10-10 13:41 | IPN ---
DATE: 10/10/2018 SUBJECTIVE: Patient seen and examined in the room today. The patient stated her abdominal pain showed significant improvement. The patient would like a trial of dietary advancement. The patient tolerated the liquid diet well. The patient has a history of chronic obstructive pulmonary disease (COPD). The patient is on chronic oxygen. The patient states her breathing is around her baseline. OBJECTIVE: VITAL SIGNS: Temperature 97.5, pulse 77, respirations 18, blood pressure 148/69, pulse oximetry 98% with 3 liters of oxygen. GENERAL: Patient is alert and awake, comfortable. Morbidly obese. HEENT: Normocephalic, atraumatic. Extraocular motors grossly intact. CARDIOVASCULAR: Positive S1 and S2. Regular rate. LUNGS: Clear to auscultation bilaterally. Diminished breath sounds due to body habitus. ABDOMEN: Obese. Soft. Bowel sounds present. EXTREMITIES: Mild edema. LABORATORY DATA: Most recent laboratory data showed WBC 12.2, hemoglobin 12.9, hematocrit 41.2, platelet count 247. Sodium is 138, potassium 4.5, chloride 107, carbon dioxide 29, BUN 7, creatinine 1.17, GFR is 15.1, fasting glucose 172. I will follow-up with updated laboratory data. ASSESSMENT/PLAN: 1. Acute diverticulitis. The patient is on IV antibiotics, Rocephin and Flagyl. According to the record, the patient has an allergy to quinolones. When I asked the patient regarding her antibiotic allergy, the patient could not recall the reaction. The patient tolerated the diet well, symptoms controlled. Continue to advance diet as tolerated. 2. Chronic COPD with chronic respiratory failure. At baseline, the patient is using oxygen supplements. The patient's respiratory status is around her baseline. Continue to monitor. 3. Diastolic congestive heart failure (CHF). The patient is on Lasix. Continue to watch the patient's fluid status. 4. Hypertension. Blood pressure is in the satisfactory range. The patient is on Lasix. 5. Obstructive sleep apnea (JIGNESH). The patient has BiPAP in her room. 6. Tobacco abuse. 7. Morbid obesity. 8. Gastroesophageal reflux disease (GERD). Continue to monitor. 9. Deep vein thrombosis (DVT) prophylaxis. The patient has compression devices.
[2018-10-10 14:00] VITALS: BP 138/71
[2018-10-10 14:04] LABS: CALCIUM LEVEL 9.5 MG/DL (8.8-10.2); CREATININE FOR GFR 1.16 MG/DL (0.55-1.30); GLOMERULAR FILTRATION RATE 50.6 (>45); MAGNESIUM LEVEL 2.1 MG/DL (1.8-2.4); POTASSIUM SERUM 3.7 MEQ/L (3.5-5.1)
[2018-10-10 14:15] LABS: HEMATOCRIT 42.8 % (36.0-47.0); HEMOGLOBIN 13.3 g/dl (12.0-15.5); MEAN CORPUSCULAR HEMOGLOBIN 27.9 pg (27.0-33.0); MEAN CORPUSCULAR HGB CONC 31.1 g/dl (32.0-36.5); MEAN CORPUSCULAR VOLUME 89.7 fl (80.0-96.0); PLATELET COUNT, AUTOMATED 271 10^3/uL (150-450); RED BLOOD COUNT 4.77 10^6/uL (4.00-5.40); WHITE BLOOD COUNT 11.3 10^3/uL (4.0-10.0)
[2018-10-10] MEDS: ALBUTEROL SULFATE 2.5 MG/0.5 ML INH NEB SOLN INH PRN (15:56)
[2018-10-10] MEDS: cefTRIAXone SOD 1 GM in D5W MINI-BAG PLUS 50 ML IV SCH (16:20)
[2018-10-10] MEDS: SIMETHICONE 80 MG CHEW TAB PO PRN (19:25)
[2018-10-10 22:00] VITALS: BP 138/63
[2018-10-11] MEDS: metroNIDAZOLE 500 MG in APPROPRIATE DILUENT 1 EA IV SCH ×2 (03:00→10:06)
[2018-10-11 06:00] VITALS: BP 149/80
[2018-10-11 06:33] LABS: HEMATOCRIT 39.3 % (36.0-47.0); HEMOGLOBIN 12.1 g/dl (12.0-15.5); MEAN CORPUSCULAR HEMOGLOBIN 27.6 pg (27.0-33.0); MEAN CORPUSCULAR HGB CONC 30.8 g/dl (32.0-36.5); MEAN CORPUSCULAR VOLUME 89.5 fl (80.0-96.0); PLATELET COUNT, AUTOMATED 263 10^3/uL (150-450); RED BLOOD COUNT 4.39 10^6/uL (4.00-5.40); WHITE BLOOD COUNT 12.5 10^3/uL (4.0-10.0)
[2018-10-11 07:04] LABS: CALCIUM LEVEL 9.2 MG/DL (8.8-10.2); CREATININE FOR GFR 1.12 MG/DL (0.55-1.30); GLOMERULAR FILTRATION RATE 52.7 (>45); MAGNESIUM LEVEL 2.4 MG/DL (1.8-2.4); POTASSIUM SERUM 4.3 MEQ/L (3.5-5.1)
[2018-10-11] MEDS: SYMBICORT 160/4.5MCG INHALER 6GM INH SCH ×2 (07:40→21:27)
[2018-10-11] MEDS: predniSONE 20 MG TAB PO SCH ×2 (08:10→20:17)
[2018-10-11] MEDS: ASPIRIN 81 MG ENTERIC TAB PO SCH (08:10)
[2018-10-11] MEDS: FUROSEMIDE 40 MG TAB PO SCH (08:10)
[2018-10-11] MEDS: NICOTINE 21MG/24HR 1 EA TRANSDERMAL TOP SCH (08:10)
[2018-10-11] MEDS: CIPROFLOXACIN 500 MG TAB PO SCH ×2 (13:08→17:44)
[2018-10-11] MEDS: metroNIDAZOLE (FLAGYL) 500 MG TAB PO SCH ×2 (13:48→20:17)
[2018-10-11 14:00] VITALS: BP 131/69
--- NOTE | 2018-10-11 15:46 | IPNPDOC ---
Text Note Date of Service The patient was seen on 10/11/18. NOTE SUBJECTIVE: Patient is seen and examined in the room today. Patient tolerated oral intake well. Abdominal discomfort has been improving. Patient still can not remember her reaction to quinolone. Per documentation, patient had mild rash as adverse effect. After long discussion, patient is willing to try cipro. OBJECTIVE: VITAL SIGNS: Listed below. GENERAL: Patient is alert and awake, comfortable. Morbidly obese. HEENT: Normocephalic, atraumatic. Extraocular motors grossly intact. CARDIOVASCULAR: Positive S1 and S2. Regular rate. LUNGS: Clear to auscultation bilaterally. Diminished breath sounds due to body habitus. ABDOMEN: Obese. Soft. Bowel sounds present. EXTREMITIES: Mild edema. LABORATORY DATA: Listed below. ASSESSMENT/PLAN: #. Acute diverticulitis. - The patient has been on IV antibiotics, Rocephin and Flagyl. Patient still has elevated WBC. She tolerates diet well. Will switch antibiotic to PO cipro and PO flagyl. Patient can not recall if she had reaction to quinolones. She agrees for trial of cipro and flagyl. #. Chronic COPD with chronic respiratory failure. - At baseline, the patient is oxygen dependent. The patient's respiratory status is around her baseline. Continue to monitor. #. Diastolic congestive heart failure (CHF). - The patient is on Lasix. Continue to watch the patient's fluid status. No sign of significant fluid overload. #. Hypertension. - Blood pressure is in the satisfactory range. The patient is on Lasix. #. Obstructive sleep apnea (JIGNESH). The patient has BiPAP. #. Tobacco abuse. #. Morbid obesity. #. Gastroesophageal reflux disease (GERD). - Continue to monitor. #. Deep vein thrombosis (DVT) prophylaxis. - The patient has compression devices. A-FIB/CHADSVASC A-FIB History Current/History of A-Fib/PAF?: No VS,Fishbone, I+O VS, Fishbone, I+O Laboratory Tests 10/11/18 05:21 Red Blood Count 4.39, Mean Corpuscular Volume 89.5, Mean Corpuscular Hemoglobin 27.6, Mean Corpuscular Hemoglobin Concent 30.8 L, Red Cell Distribution Width 14.3, Calcium Level 9.2 Vital Signs Date Time Temp Pulse Resp B/P (MAP) Pulse Ox O2 Delivery O2 Flow Rate FiO2 10/11/18 14:00 97.7 84 22 131/69 (89) 93 2.0 10/09/18 09:12 Nasal Cannula I&O- Last 24 Hours up to 6 AM 10/11/18 06:00 Intake Total 2870 ml Output Total 900 ml Balance 1970 ml MARILIN DO DO October 11, 2018 15:46
[2018-10-11 22:00] VITALS: BP_SYST 107; BP_SYST 130; BP_DIAS 62; BP_DIAS 72
[2018-10-11] MEDS: SIMETHICONE 80 MG CHEW TAB PO PRN (22:06)
[2018-10-11] MEDS: traMADol 50 MG TAB PO PRN (22:07)
[2018-10-12] MEDS: CIPROFLOXACIN 500 MG TAB PO SCH (05:42)
[2018-10-12] MEDS: metroNIDAZOLE (FLAGYL) 500 MG TAB PO SCH (05:42)
[2018-10-12 06:00] VITALS: BP 139/80
[2018-10-12 06:33] LABS: HEMATOCRIT 41.2 % (36.0-47.0); HEMOGLOBIN 12.8 g/dl (12.0-15.5); MEAN CORPUSCULAR HEMOGLOBIN 28.1 pg (27.0-33.0); MEAN CORPUSCULAR HGB CONC 31.1 g/dl (32.0-36.5); MEAN CORPUSCULAR VOLUME 90.4 fl (80.0-96.0); PLATELET COUNT, AUTOMATED 289 10^3/uL (150-450); RED BLOOD COUNT 4.56 10^6/uL (4.00-5.40); WHITE BLOOD COUNT 14.3 10^3/uL (4.0-10.0)
[2018-10-12 06:54] LABS: CALCIUM LEVEL 9.2 MG/DL (8.8-10.2); CREATININE FOR GFR 1.05 MG/DL (0.55-1.30); GLOMERULAR FILTRATION RATE 56.7 (>45); MAGNESIUM LEVEL 2.3 MG/DL (1.8-2.4); POTASSIUM SERUM 4.2 MEQ/L (3.5-5.1)
[2018-10-12] MEDS: SYMBICORT 160/4.5MCG INHALER 6GM INH SCH (07:27)
[2018-10-12] MEDS ORDERED: CIPR-249 PO (07:44)
[2018-10-12] MEDS ORDERED: METR-265 PO (07:44)
[2018-10-12] MEDS: predniSONE 20 MG TAB PO SCH (08:36)
[2018-10-12] MEDS: FUROSEMIDE 40 MG TAB PO SCH (08:36)
[2018-10-12] MEDS: ASPIRIN 81 MG ENTERIC TAB PO SCH (08:36)
[2018-10-12] MEDS: NICOTINE 21MG/24HR 1 EA TRANSDERMAL TOP SCH (08:36)
--- NOTE | 2018-10-12 18:53 | DSES ---
DATE OF ADMISSION: 10/08/2018 DATE OF DISCHARGE: 10/12/2018 CONSULTANTS: None. PROCEDURES: None. DISCHARGE DIAGNOSIS: 1. Acute diverticulitis. 2. Chronic obstructive pulmonary disease (COPD) with chronic respiratory failure on BiPap. 3. Diastolic congestive heart failure. 4. Hypertension. 5. Tobacco abuse. 6. Morbid obesity. 7. History of gastroesophageal reflux disease. HOSPITALIZATION COURSE: The patient is a 62-year-old female who presented to [facility] on 10/08/2018 with complaints of abdominal pain with diarrhea. Patient was admitted under the hospitalist service for acute diverticulitis. Patient was placed nothing by mouth and IV fluids was started. Patient was stated on IV antibiotics. Later patient was consulted by medical management, patient showed improvement of abdominal pain. Patient was started on clear liquid. Later diet was advanced as tolerated. From a clinical picture the patient antibiotics were switched to oral formulation. On 10/12/2018 the patient was determined stable for discharge with the recommendation to finish a course of oral antibiotics for his diverticulitis. Patient should follow with her primary care provider in one week. OBJECTIVE: VITAL SIGNS: Temperature 98.2, pulse 82, respirations 20, blood pressure 139/80, pulse ox 97% with 2 liters of oxygen. LABORATORY DATA ON DAY OF DISCHARGE: WBC 14.3, hemoglobin 12.8, hematocrit 41.2, platelet count 289, sodium 145, potassium 4.2, chloride 110, carbon dioxide 28, BUN 14, creatinine 1.05, GFR 56.7, fasting glucose 197, calcium 9.2, magnesium 2.3. Microbiology: Blood culture from 10/08/2018 show no growth after 32 hours times two sets. IMAGING STUDIES: CT of the abdomen and pelvis with oral and IV contrast demonstrate findings compatible with acute diverticulitis of the sigmoid colon. No free air, free fluid or abscess. DISCHARGE MEDICATION: Ciprofloxacin 500 mg by mouth twice a day for 5 days, Flagyl 500 mg by mouth every 8 hours as needed for 5 days. Albuterol 2.5 mg inhalation every 4 hours as needed, aspirin 81 mg by mouth daily, Symbicort 2 puff inhalation twice a day, clotrimazole/ betamethasone 1 tablet twice a day, diphenhydramine 25 mg by mouth every 6 hours as needed, Lasix 40 mg by mouth daily, Mucinex 600 mg by mouth twice a day as needed for congestion, clopramide 2 grams by mouth every 6 hours as needed, nicotine patch topically daily, prednisone taper per instructions. Patient on ranitidine 300 mg 1 tab by mouth daily, tramadol 50 mg by mouth four times a day as needed. DISCHARGE INSTRUCTIONS: Discontinue line, discharge home. Activity as tolerated. Low sat diet as tolerated. Patient should followup with her primary care provider in one week. Patient should finish a course of antibiotics for her acute diverticulitis. Patient was advised to take a Benadryl if patient experiences mild itchiness from the antibiotics. DISCHARGE CONDITION: Fair. DISCHARGE TIME: Greater than 30 minutes.
== END 2018-10-12 11:30 | disposition home or self-care (01) | DRG 391 ==
LOC: M ED 13:20 → EDBD 13:20 → M ED INP 16:55 → M MS5PR 18:30
PROVIDERS: ADMIT Internal Medicine; ATTEND Internal Medicine
DX: K57.92 Diverticulitis of intestine, part unspecified, without perforation or abscess without bleeding (principal); J96.90 Respiratory failure, unspecified, unspecified whether with hypoxia or hypercapnia; I50.32 Chronic diastolic (congestive) heart failure; E66.01 Morbid (severe) obesity due to excess calories; J44.9 Chronic obstructive pulmonary disease, unspecified; K21.9 Gastro-esophageal reflux disease without esophagitis; I11.0 Hypertensive heart disease with heart failure; F17.200 Nicotine dependence, unspecified, uncomplicated; G47.33 Obstructive sleep apnea (adult) (pediatric); Z79.899 Other long term (current) drug therapy; Z79.82 Long term (current) 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; Z88.0 Allergy status to penicillin; Z88.2 Allergy status to sulfonamides; Z88.8 Allergy status to other drugs, medicaments and biological substances

== ENCOUNTER 2018-11-07 15:42 | Inpatient (IN) | payer MEDICARE, MEDICAID ==
[~2018-11-07] VITALS: Ht 167.6 cm; Wt 115.2 kg
[~2018-11-07 15:42] MED LIST changes: +CIPR-249 PO; +MUCI600T31 PO; +NICO21PAT TOP; +PRED20TA PO
[2018-11-07 16:15] LABS: ABG BASE EXCESS 0.9 (-2.0-2.0); ABG HCO3 24.7 MEQ/L (22.0-26.0); ABG O2 SATURATION 89.7 % (95.0-99.0); ABG PARTIAL PRESSURE CO2 37.1 mmHg (35.0-45.0); ABG PARTIAL PRESSURE O2 51.2 mmHg (75.0-100.0); ABG STANDARD HCO3 25.1 MEQ/L (22.0-26.0); ABG TOTAL CO2 25.9 MEQ/L (23.0-31.0); ABG pH (ARTERIAL) 7.442 UNITS (7.350-7.450)
--- NOTE | 2018-11-07 16:15 | REP ---
Chest one-view HISTORY: Cough Comparison: 08/30/2018 The lungs are clear. The heart is normal in size. The pulmonary vasculature is normal in appearance. Impression: No acute disease. Electronically Signed by Gucci Tabor MD 11/07/2018 04:07 P
[2018-11-07 16:18] LABS: BASO # 0.1 10^3/uL (0.0-0.2); BASO % 0.3 % (0.0-1.0); EOS # 0.1 10^3/uL (0.0-0.50); EOS % 0.8 % (0.0-3.0); HEMATOCRIT 45.7 % (36.0-47.0); HEMOGLOBIN 14.5 g/dl (12.0-15.5); LYMPH # 3.1 10^3/uL (1.5-4.5); LYMPH % 20.7 % (24.0-44.0); MEAN CORPUSCULAR HEMOGLOBIN 27.4 pg (27.0-33.0); MEAN CORPUSCULAR HGB CONC 31.7 g/dl (32.0-36.5); MEAN CORPUSCULAR VOLUME 86.4 fl (80.0-96.0); MONO # 0.9 10^3/uL (0.0-0.8); NEUTROPHILS # 10.5 10^3/uL (1.8-7.7); PLATELET COUNT, AUTOMATED 292 10^3/uL (150-450); RED BLOOD COUNT 5.29 10^6/uL (4.00-5.40); WHITE BLOOD COUNT 14.8 10^3/uL (4.0-10.0)
[2018-11-07] MEDS ORDERED: methylPREDNISolone INJ 125 MG/2 ML VIAL (J2930) IV ONE (16:30)
[2018-11-07 16:35] LABS: INR 0.92; PROTHROMBIN TIME 12.5 SECONDS (12.1-14.4)
[2018-11-07] MEDS: IPRATROPIUM 0.5MG/ALBUTEROL 2.5MG INH SOL UD 3ML (DUONEB)(J7620) NEB SCH ×3 (16:43→17:17)
[2018-11-07 16:47] LABS: ALBUMIN 3.3 GM/DL (3.2-5.2); ALT/SGPT 31 U/L (12-78); BILIRUBIN,DIRECT < 0.1 MG/DL (0.0-0.2); BILIRUBIN,TOTAL 0.2 MG/DL (0.2-1.0); BLOOD UREA NITROGEN 14 MG/DL (7-18); CALCIUM LEVEL 8.8 MG/DL (8.8-10.2); CARBON DIOXIDE LEVEL 27 MEQ/L (21-32); CHLORIDE LEVEL 107 MEQ/L (98-107); CK-MB VALUE MASS < 1.0 NG/ML (<3.6); CPK CREATINE PHOSPHOKINASE 45 U/L (26-192); CREATININE FOR GFR 1.19 MG/DL (0.55-1.30); GLOMERULAR FILTRATION RATE 48.9 (>45); GLUCOSE, FASTING 138 MG/DL (70-100); MB/CK RELATIVE INDEX 2.22 (< OR =4); NT-PRO BNP 67 PG/ML (<125); POTASSIUM SERUM 3.8 MEQ/L (3.5-5.1); SODIUM LEVEL 143 MEQ/L (136-145); TOTAL PROTEIN 6.7 GM/DL (6.4-8.2); TROPONIN I < 0.02 NG/ML (< 0.10)
[2018-11-07] MEDS ORDERED: ISOVUE-370 76% 100ML VIAL (Q9967) As Ordered ONE (17:48)
--- NOTE | 2018-11-07 18:53 | REPVR ---
EXAM: CT Angiography Chest With Contrast EXAM DATE/TIME: 11/07/2018 6:07 PM CLINICAL HISTORY: 63 years old, female; Signs and symptoms; Shortness of breath; Additional info: SOB TECHNIQUE: Imaging protocol: Axial computed tomographic angiography images of the chest with intravenous contrast using CT angiography protocol. Coronal and sagittal reformatted images were created and reviewed. 3D rendering: MIP reconstructed images were created and reviewed. Radiation optimization: All CT scans at this facility use at least one of these dose optimization techniques: automated exposure control; mA and/or kV adjustment per patient size (includes targeted exams where dose is matched to clinical indication); or iterative reconstruction. Contrast material: ISOVUE 370; Contrast volume: 75 ml; Contrast route: IV; COMPARISON: CT ANGIO CHEST 05/29/2018 9:42 AM FINDINGS: Pulmonary arteries: Normal. No pulmonary emboli. Aorta: Mild arteriosclerosis.. No aortic aneurysm. No aortic dissection. Lungs: Subsegmental atelectasis noted in the lingula. Discoid atelectasis or scar in the right lower lobe. There is diffuse centrilobular and panlobular type emphysema in both lungs. 3 mm groundglass nodule anterior segment right upper lobe (series 402 image 50). 3 mm nodule posterior segment right upper lobe (series 402 image 50) Pleural space: Normal. No pneumothorax. No pleural effusion. Heart: Normal. No cardiomegaly. No pericardial effusion. Liver: Coarse benign calcification noted within the left lobe of the liver beneath the capsule near the dome of the liver. The liver is low in density. Lymph nodes: Unremarkable. No enlarged lymph nodes. Bones/joints: Unremarkable. No acute fracture. Soft tissues: Unremarkable. IMPRESSION: 1. No pulmonary embolism. 2.Diffuse centrilobular and panlobular type emphysema 3. Hepatic steatosis 4. Right-sided pulmonary nodules without change from studies dated back to 2014. No additional followup warranted. Electronically signed by: Mary Salas On 11/07/2018 18:53:01 PM
[2018-11-07] MEDS ORDERED: IPRATROPIUM 0.5MG/ALBUTEROL 2.5MG INH SOL UD 3ML (DUONEB)(J7620) NEB PRN (21:15)
[2018-11-07] MEDS ORDERED: diphenhydrAMINE 25 MG CAP PO PRN (21:15)
[2018-11-07] MEDS: CEFEPIME HCL 1 GM in D5W 50 ML IV SCH (22:00)
--- NOTE | 2018-11-07 22:21 | HPEPDOC ---
General Date of Admission 11/07/2018 Date of Service: Nov 07, 2018 Primary Care Physician: JENELLE VALDEZ MD [facility] Attending Physician: LYNSEY RODRIGUEZ MD Chief Complaint The patient is a 63-year-old female admitted with a reason for visit of Diff Breathing Chest Pain. Source: Patient, Old records Exam Limitations: No limitations Timing/Duration: Day(s) Associated Symptoms: Cough, Shortness of breath History of Present Illness Ms. Schilling is a 63-year-old female who presents to [facility]'s Emergency Department with difficulty breathing. She states that she has had difficulty breathing over the last 3 days. She thinks she "caught cold." Patient reports coughing up thick, bubbly, stringy sputum. She has tried over the counter remedies, including Mucinex and Vicks vapor rub without relief. She usually practices her breathing techniques on her daily walks, but has been unable to do so since the shortness of breath started. She wears BiPAP chronically at home with 8L at night and 2L during the day. She has associated anterior chest pain with the shortness of breath. She has not had any sick contacts. She has been experiencing nausea, but is not vomiting. There is a centralized upper chest discomfort associated with food getting stuck in her throat, but she does not report difficulty or painful swallowing. She does report orthopnea and notes that she has to sleep at an incline. She denies paroxysmal nocturnal dyspnea. Furthermore, she does have bilateral ankle swelling. Denies feeling weak, but does have some l ightheadedness specifically when she changes position. Patient was most recently hospitalized from 10/08/2018 to 10/12/2018 with diverticulitis. She had reported abdominal pain with diarrhea. She was treated appropriately at that time. Prior to that hospitalization she was admitted from 08/30/2018 to 09/05/2018 for acute on chronic respiratory failure. She had been experiencing symptoms similar to her current presentation. She improved throughout her hospitalization and was safely discharged. Current Emergency Department evaluation reveals stable vital signs. She is currently on home BiPAP. Neutrophilic leukocytosis of 14.8. Unremarkable chemistry. Blood gas unremarkable. Hospitalist service was consulted and patient was admitted for further medical management. Home Medications Scheduled Aspirin (Aspirin EC) 81 Mg Tabec, 81 MG PO DAILY, (Reported) Budesonide/Formoterol (Symbicort 160-4.5 Mcg Inhaler) 60 Puff/Inhaler Aers, 2 PUFF INH BID, (Reported) Clotrimazole/Betamethasone Dip (Clotrimazole-Betamethasone Crm) 1 Dose/15 Gm Cream, 1 DOSE TOP BID, (Reported) USES ON ELBOWS Furosemide (Furosemide) 40 Mg Tab, 40 MG PO DAILY, (Reported) Nicotine (Nicotine Patch) 21 Mg Patch.td24, 1 PATCH TOP DAILY, (Reported) APPLIES TO ARMS OR CHEST. PATIENT DOES NOT HAVE PATCH ON CURRENTLY. Prednisone (Prednisone) 20 Mg Tablet, 20 MG PO ASDIRECTED, (Reported) PATIENT STATES DOCTOR TOLD HER TO TAKE BID AND THAT SHE HAD 1 MORE TABLET LEFT TO TAKE Ranitidine HCl (Ranitidine HCl) 300 Mg Tab, 1 TAB PO DAILY, (Reported) Scheduled PRN Albuterol Sulf (Albuterol Sulfate) 2.5 Mg/3 Ml Nebu, 2.5 MG INH Q4H PRN for SHORTNESS OF BREATH, (Reported) Albuterol Sulfate (Proair Hfa) 108 Mcg/Act Aer, 2 PUFF INH Q4H PRN for SHORTNESS OF BREATH, (Reported) Diphenhydramine HCl (Diphenhist) 25 Mg Cap, 25 MG PO QHS PRN for SLEEP, (Re ported) Guaifenesin (Mucinex) 600 Mg Tab.er.12h, 600 MG PO BID PRN for CONGESTION, (Reported) Allergies Coded Allergies: Penicillins (Verified Allergy, Intermediate, HIVES, 09/02/18) pt has had cefdinir in the past metronidazole (Verified Allergy, Intermediate, itching, 11/07/18) Quinolones (Verified Allergy, Mild, RASH, 08/30/18) aripiprazole (Verified Adverse Reaction, Intermediate, TACHYCARDIA, 08/30/18) Sulfa (Sulfonamide Antibiotics) (Verified Adverse Reaction, Mild, VOMITING, BLISTERS, TACHYCARDIA, 10/08/18) Macrolide Antibiotics (Verified Adverse Reaction, Unknown, ITCHY, HIVES, 10/08/18) Tetracyclines (Verified Adverse Reaction, Unknown, TACHYCARDIA, BLISTERS, HIVES, 10/08/18) venlafaxine (Verified Adverse Reaction, Unknown, INCREASED HR, 10/08/18) Past Medical History Medical History 1. Diverticulitis 2. Chronic respiratory failure on BiPAP 3. Grade 2 diastolic congestive heart failure, compensated 3. HTN 4. Tobacco dependence on nicotine replacement 5. Morbid obesity 6. GERD 7. JIGNESH 8. Moderate pulmonary HTN 9. Periodic limb movement disorder Surgical History 1. Colonoscopy 2. EGD 3. Appendectomy 4. Cholecystectomy 5. Hysterectomy Family History Father: , 42, [place] Mother: , 65, CVA Siblings - Brother: , 82, pacemaker complications - Sister: , 60s, CVA - Brother: , 55, CAD Social History * Smoker: former Smoker (230 pack year history, but quit recently and is curerntly on nicotine replacement) Alcohol: Denies Drugs: denies Pets in the home: Dog(s) (part-poodle mix named [employer]) Lives independently. . fro 23 years until 's from myelofibrosis. No children. Has a part-poodle named [employer]. 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 Recent tobacco cessation. Has extensive pack year history. Currently on nicotine replacement. Does not drink EtOH or use illicit drugs. A-FIB/CHADSVASC A-FIB History Current/History of A-Fib/PAF?: No Review of Systems Constitutional: Denies: Chills, Fever, Night Sweats, Weakness Eyes: Denies: Vision change, Conjunctivae inflammation, Eyelid inflammation ENT: Reports: Head Aches; Denies: Dysphagia, Sinus Congestion, Post Nasal Drip, Sore Throat, Epistaxis Skin: Denies: Rash, Lesions Pulmonary: Reports: Dyspnea, Cough (productive) Cardiovascular: Reports: Chest Pain (associated with shortness of breath), Orthopnea, Edema, Lt Headedness (with change in position); Denies: Palpitations, Paroxysmal Noc. Dyspnea Gastrointestinal: Reports: Nausea, Hematochezia (associated with hemorrhoids); Denies: Vomiting, Abdominal Pain, Diarrhea, Constipation, Melena Genitourinary: Reports: Other Symptoms (discomfort towards the end of urination); Denies: Dysuria, Frequency, Incontinence, Hematuria, Retention Hematologic: Denies: Bruising, Bleeding Excessively Endocrine: Denies: Polydipsia, Polyphagia Musculoskeletal: Reports: Neck Pain; Denies: Back Pain, Foot Pain, Joint Pain Neurological: Denies: Weakness, Numbness Physical Examination General Exam: Positive: Alert, Cooperative Eye Exam: Positive: PERRLA, Conjunctiva & lids normal, EOMI; Negative: Sclera icteric, Ptosis ENT Exam: Positive: Atraumatic, Mucous membr. moist/pink, Pharynx Normal, Tongue Midline, Nares Patent, Other ENT (BiPAP in place); Negative: Pharyngeal Edema Neck Exam: Positive: Supple, +2 carotid pulse wo bruit; Negative: JVD, thyromegaly, Lymphadenopathy Chest Exam: Positive: Wheezing, Diminished; Negative: Clear to auscultation, Normal air movement, Rales, Rhonchi Heart Exam: Positive: Rate Normal, Tachycardic, Regular Rhythm, Normal S1, Normal S2; Negative: Gallops, Murmurs, Rubs Telemetry: Positive: Tachycardia Abdomen Exam: Positive: Normal bowel sounds, Soft, Hernia; Negative: Tenderness, Hepatospenomegaly, Mass Extremity Exam: Negative: Clubbing, Cyanosis, Edema, Normal pulses (tachycardic), Tenderness, Swelling Skin Exam: Negative: Rash, Lesion Neuro Exam: Positive: Cranial Nerves 3-12 NL Psych Exam: Positive: Oriented x 3 Other physical findings 1. Portable chest x-ray - no acute disease. 2. CT chest angiogram - No pulmonary embolism. Diffuse centrilobular and panlobular type emphysema. Hepatic steatosis. Right-sided pulmonary nodules without change from studies dated back to 2014. No additional followup warranted. Vital Signs Vital Signs Date Time Temp Pulse Resp B/P (MAP) Pulse Ox O2 Delivery O2 Flow Rate FiO2 11/07/18 21:28 96.5 79 24 96 NIPPV (BIPAP/CPAP) 11/07/18 20:10 129/65 (86) 4.0 Height (in): 66 Weight (kg): 113 BMI (kg): 40.2 Laboratory Data Labs 24H Laboratory Tests 2 11/07/18 15:58: Immature Granulocyte % (Auto) 1.2, White Blood Count 14.8H, Red Blood Count 5.29, Hemoglobin 14.5, Hematocrit 45.7, Mean Corpuscular Volume 86.4, Mean Corpuscular Hemoglobin 27.4, Mean Corpuscular Hemoglobin Concent 31.7L, Red Cell Distribution Width 15.8H, Platelet Count 292, Neutrophils (%) (Auto) 71.0H, Lymphocytes (%) (Auto) 20.7L, Monocytes (%) (Auto) 6.0H, Eosinophils (%) (Auto) 0.8, Basophils (%) (Auto) 0.3, Neutrophils # (Auto) 10.5H, Lymphocytes # (Auto) 3.1, Monocytes # (Auto) 0.9H, Eosinophils # (Auto) 0.1, Basophils # (Auto) 0.1, Nucleated Red Blood Cells % (auto) 0.0, Prothrombin Time 12.5, Prothromb Time International Ratio 0.92, Blood Gas Bicarbonate Standard 25.1, Arterial Blood pH 7.442, Arterial Blood Partial Pressure CO2 37.1, Arterial Blood Partial Pressure O2 51.2L, Arterial Blood Total CO2 25.9, Arterial Blood HCO3 24.7, Arterial Blood Base Excess 0.9, Arterial Blood Oxygen Saturation 89.7L, Anion Gap 9, Glomerular Filtration Rate 48.9, Lactic Acid Level 1.8, Calcium Level 8.8, Aspartate Amino Transf (AST/SGOT) 12, Alanine Aminotransferase (ALT/SGPT) 31, Alkaline Phosphatase 66, Total Bilirubin 0.2, Direct Bilirubin < 0.1, Total Creatine Kinase 45, Creatine Kinase MB < 1.0, Creatine Kinase MB Relative Index 2.22, Troponin I < 0.02, ZT-Qxe-B-Type Natriuretic Peptide 67, Total Protein 6.7, Albumin 3.3, Albumin/Globulin Ratio 0.97L, Thyroid Stimulating Hormone (TSH) 1.110 CBC/BMP Laboratory Tests 11/07/18 15:58 Red Blood Count 5.29, Mean Corpuscular Volume 86.4, Mean Corpuscular Hemoglobin 27.4, Mean Corpuscular Hemoglobin Concent 31.7 L, Red Cell Distribution Width 15.8 H, Neutrophils (%) (Auto) 71.0 H, Lymphocytes (%) (Auto) 20.7 L, Monocytes (%) (Auto) 6.0 H, Eosinophils (%) (Auto) 0.8, Basophils (%) (Auto) 0.3, Neutrophils # (Auto) 10.5 H, Lymphocytes # (Auto) 3.1, Monocytes # (Auto) 0.9 H, Eosinophils # (Auto) 0.1, Basophils # (Auto) 0.1 Microbiology Microbiology 11/07/18 Blood Culture, Received Pending 11/07/18 Blood Culture, Received Pending 11/07/18 Respiratory Virus Panel (PCR) (JOHNNY) - Final, Complete Plan / VTE VTE Prophylaxis Ordered?: Yes (Lovenox 40mg SQ daily, TEDs) Plan Plan 1. COPD exacerbation Continue BiPAP Methyprednisolone 60mg IV Q8H Cefepime 1gm IV Q12 (extensive allergies) Procalcitonin Duoneb's scheduled and PRN Continue Symbicort Continue Mucinex Respiratory panel, blood cultures, sputum culture and gram stain IS, HOB > 30, aspiration precautions, PT 2. Grade 2 diastolic congestive heart failure, compensated Furosemide 40mg PO daily Weight daily I/Os daily 3. Tobacco dependence Nicotine replacement patch daily Smoking cessation counseling 4. JIGNESH Continue with BiPAP 5. GERD Continue with Ranitidine Disposition Admit: PCU Anticipated hospitalization: 2 nights Diet: Continue Current (COPD diet) Activity: Continue Current (activity as tolerated) Therapy: PT Medications: Start Antibiotics (Cefepime 1gm IV Q12), Start Steroids (Methylprednisolone 60mg IV Q8H) Respiratory: Other Respiratory (BiPAP) Diagnostics: Check Labs, Repeat Labs in AM, Obtain Cultures (sputum, respiratory panel, blood) Anticipated Discharge: Home GME ATTESTATION GME ATTESTATION My faculty preceptor for this patient encounter was physically present during the encounter and was fully available. All aspects of the patient interview, examination, medical decision making process, and medical care plan development were reviewed and approved by the faculty preceptor. The faculty preceptor is aware and concurs with the plan as stated in the body of this note and will attest to such by his/her cosignature. ATTENDING NOTE ATTENDING ATTESTATION: I performed a history and physical examination of the patient and discuss the management with the resident/PHOTOGRAPHY TEACHER. I reviewed the resident's note and agree with the documented findings and plan of care. NATAN DARBY DO Nov 07, 2018 22:21 LYNSEY RODRIGUEZ MD Nov 08, 2018 19:12
[2018-11-07] MEDS: SYMBICORT 160/4.5MCG INHALER 6GM INH SCH (23:00)
[2018-11-07 23:28] VITALS: BP 145/87
[2018-11-08] VITALS (7 sets, daily range): BP systolic 120–135; BP diastolic 67–83
[2018-11-08] MEDS: methylPREDNISolone INJ 125 MG/2 ML VIAL (J2930) IV SCH ×3 (02:44→17:33)
[2018-11-08] MEDS: IPRATROPIUM 0.5MG/ALBUTEROL 2.5MG INH SOL UD 3ML (DUONEB)(J7620) NEB SCH ×4 (02:47→20:00)
[2018-11-08 05:27] LABS: HEMATOCRIT 44.7 % (36.0-47.0); MEAN CORPUSCULAR HEMOGLOBIN 27.9 pg (27.0-33.0); MEAN CORPUSCULAR HGB CONC 31.3 g/dl (32.0-36.5); MEAN CORPUSCULAR VOLUME 89.2 fl (80.0-96.0); PLATELET COUNT, AUTOMATED 226 10^3/uL (150-450); RED BLOOD COUNT 5.01 10^6/uL (4.00-5.40); WHITE BLOOD COUNT 11.9 10^3/uL (4.0-10.0)
[2018-11-08 05:51] LABS: CALCIUM LEVEL 9.1 MG/DL (8.8-10.2); CREATININE FOR GFR 1.12 MG/DL (0.55-1.30); GLOMERULAR FILTRATION RATE 52.5 (>45); POTASSIUM SERUM 4.4 MEQ/L (3.5-5.1)
--- NOTE | 2018-11-08 07:50 | ECGEPIP ---
[facility] - ED Test Date: 2018-11-07 Pat Name: ELIZABETH BRENNAN Department: Room: - Gender: Female Obstetrician And Gynaecologist: : [id number] Requested By: Mary Ann Shelton Order Number: [id number] Reading MD: Mary Ann Shelton Measurements Intervals [place] Rate: 111 P: 63 NV: 124 QRS: 36 QRSD: 86 T: 63 QT: 325 QTc: 443 Interpretive Statements SINUS TACHYCARDIA WITH OCCASIONAL VENTRICULAR PREMATURE COMPLEXES NSTTW ABNORMALITY LOW VOLTAGE LIMB INCREASED RATE 08/30/18 ABNORMAL RHYTHM ECG Electronically Signed on 11-08-2018 7:49:59 EDT by Mary Ann Shelton
[2018-11-08] MEDS: ENOXAPARIN 40 MG/0.4 ML SYRINGE (J1650) SC SCH (08:23)
[2018-11-08] MEDS: ASPIRIN 81 MG ENTERIC TAB PO SCH (08:23)
[2018-11-08] MEDS: NICOTINE 21MG/24HR 1 EA TRANSDERMAL TOP SCH (08:23)
[2018-11-08] MEDS: raNITIdine SYRUP 150 MG/10 ML UDC PO SCH (08:23)
[2018-11-08] MEDS ORDERED: FUROSEMIDE 40 MG TAB PO SCH (09:00)
[2018-11-08] MEDS: CEFEPIME HCL 1 GM in D5W 50 ML IV SCH (09:10)
[2018-11-08] MEDS: SYMBICORT 160/4.5MCG INHALER 6GM INH SCH ×2 (09:13→20:14)
[2018-11-08] MEDS: guaiFENesin ER 600 MG TAB PO PRN ×2 (11:13→19:46)
[2018-11-08] MEDS ORDERED: SLF 3 ML SYR IV PRN (11:15)
[2018-11-08] MEDS: SLF 3 ML SYR IV SCH ×2 (11:39→22:01)
[2018-11-08] MEDS ORDERED: KETOROLAC 30 MG/ML VIAL (J1885) IV ONE (17:15)
--- NOTE | 2018-11-08 17:38 | IPNPDOC ---
Subjective Date Seen The patient was seen on 11/08/18. Subjective Chief Complaint/HPI SOB is a little better compared to admission. Cough is better. feeling hungry. No fever or chills, no chest pain does complain of generalized abdominal pain. No nausea or vomiting or diarrhea. Objective Physical Examination General Exam: Positive: Alert, Cooperative Eye Exam: Positive: PERRLA, Conjunctiva & lids normal, EOMI; Negative: Sclera icteric, Ptosis ENT Exam: Positive: Atraumatic, Mucous membr. moist/pink, Pharynx Normal, Tongue Midline, Nares Patent, Other ENT (BiPAP in place); Negative: Pharyngeal Edema Neck Exam: Positive: Supple, +2 carotid pulse wo bruit; Negative: JVD, thyromegaly, Lymphadenopathy Chest Exam: Positive: Rhonchi, Wheezing, Diminished; Negative: Clear to auscultation, Normal air movement Heart Exam: Positive: Rate Normal, Tachycardic, Regular Rhythm, Normal S1, Normal S2; Negative: Gallops, Murmurs, Rubs Telemetry: Positive: Tachycardia Abdomen Exam: Positive: Normal bowel sounds, Soft, Hernia; Negative: Tenderness, Hepatospenomegaly, Mass Extremity Exam: Negative: Clubbing, Cyanosis, Edema, Normal pulses (tachycardic), Tenderness, Swelling Skin Exam: Negative: Rash, Lesion Neuro Exam: Positive: Cranial Nerves 3-12 NL Psych Exam: Positive: Oriented x 3 Assessment /Plan Assessment COPD exacerbation Continue BiPAP Methyprednisolone 60mg IV Q8H procalcitonin negative. will dc cefepime. Duoneb's scheduled and PRN Continue Symbicort Continue Mucinex Respiratory panel negative. blood cultures, sputum culture and gram stain Chronic hypoxic and hypercarbic respiratory failure continue oxygen supplementation 2 l when awake BIPAP when sleeping with 8 l bleed in Grade 2 diastolic congestive heart failure, compensated Furosemide 40mg PO daily Weight daily I/Os daily Tobacco dependence Nicotine replacement patch daily Smoking cessation counseling JIGNESH Continue with BiPAP with 8 liters Oxygen bleed in GERD Continue with Ranitidine will add PPI as on high dose steroids. Morbid obesity complicating care. Plan/VTE VTE Prophylaxis Ordered?: Yes (Lovenox 40mg SQ daily, TEDs) Plan Diet: Continue Current (COPD diet) Activity: Continue Current (activity as tolerated) Therapy: PT Medications: Start Antibiotics (Cefepime 1gm IV Q12), Start Steroids (Methylprednisolone 60mg IV Q8H) Respiratory: Other Respiratory (BiPAP) Diagnostics: Check Labs, Repeat Labs in AM, Obtain Cultures (sputum, respiratory panel, blood) Anticipated Discharge: Home VS, I&O, 24H, Fishbone Vital Signs/I&O Vital Signs Date Time Temp Pulse Resp B/P (MAP) Pulse Ox O2 Delivery O2 Flow Rate FiO2 11/08/18 16:00 97.2 111 18 129/83 (98) 94 2.0 11/07/18 21:59 NIPPV (BIPAP/CPAP) I&O- Last 24 Hours up to 6 AM 11/08/18 06:00 Intake Total 150 ml Output Total 300 ml Balance -150 ml Laboratory Data 24H LABS Laboratory Tests 2 11/08/18 05:11: Nucleated Red Blood Cells % (auto) 0.0, Anion Gap 6L, Glomerular Filtration Rate 52.5, Blood Urea Nitrogen 14, Creatinine 1.12, Sodium Level 142, Potassium Level 4.4, Chloride Level 106, Carbon Dioxide Level 30, Calcium Level 9.1, Procalcitonin 0.02 CBC/BMP Laboratory Tests 11/08/18 05:11 Red Blood Count 5.01, Mean Corpuscular Volume 89.2, Mean Corpuscular Hemoglobin 27.9, Mean Corpuscular Hemoglobin Concent 31.3 L, Red Cell Distribution Width 15.4 H, Calcium Level 9.1 Microbiology Microbiology 11/07/18 Blood Culture, Received Pending 11/07/18 Blood Culture - Preliminary, Resulted No growth after 24 hours . All specim... 11/07/18 Respiratory Virus Panel (PCR) (JOHNNY) - Final, Complete SHERI RODRIGUEZ MD Nov 08, 2018 17:38
[2018-11-08] MEDS ORDERED: PANTOPRAZOLE 40MG INJ (PROTONIX) (C9113) IV SCH (18:00)
[2018-11-08] MEDS ORDERED: BUDESONIDE 0.5 MG/2 ML INHALATION SUSPENSION INH SCH (20:00)
[2018-11-08] MEDS: SODIUM CHLORIDE HYPERTONIC 3% 15ML NEB SOL INH SCH (20:00)
[2018-11-09] MEDS: IPRATROPIUM 0.5MG/ALBUTEROL 2.5MG INH SOL UD 3ML (DUONEB)(J7620) NEB SCH ×2 (01:18→08:00)
[2018-11-09] MEDS: methylPREDNISolone INJ 125 MG/2 ML VIAL (J2930) IV SCH (01:25)
[2018-11-09] MEDS: SODIUM CHLORIDE HYPERTONIC 3% 15ML NEB SOL INH SCH ×2 (02:00→08:00)
[2018-11-09 04:00] VITALS: BP 128/70
[2018-11-09 05:35] LABS: HEMATOCRIT 42.5 % (36.0-47.0); HEMOGLOBIN 13.2 g/dl (12.0-15.5); MEAN CORPUSCULAR HEMOGLOBIN 27.8 pg (27.0-33.0); MEAN CORPUSCULAR HGB CONC 31.1 g/dl (32.0-36.5); MEAN CORPUSCULAR VOLUME 89.5 fl (80.0-96.0); PLATELET COUNT, AUTOMATED 262 10^3/uL (150-450); RED BLOOD COUNT 4.75 10^6/uL (4.00-5.40); WHITE BLOOD COUNT 17.5 10^3/uL (4.0-10.0)
[2018-11-09 05:49] LABS: CREATININE FOR GFR 1.43 MG/DL (0.55-1.30); GLOMERULAR FILTRATION RATE 39.6 (>45); POTASSIUM SERUM 4.8 MEQ/L (3.5-5.1)
[2018-11-09] MEDS: SLF 3 ML SYR IV SCH (06:00)
[2018-11-09] MEDS ORDERED: GLUCAGON FOR INJ 1 MG VIAL (J1610) SC PRN (06:45)
[2018-11-09] MEDS ORDERED: GLUCOSE 4 GM CHEW TABLET PO PRN (06:45)
[2018-11-09] MEDS ORDERED: DEXTROSE 50% 50 ML SYRINGE IV PRN (06:45)
[2018-11-09] MEDS: HumaLOG INSULIN (NovoLOG) PER UNIT SC SCH ×2 (07:46→11:52)
[2018-11-09] MEDS: SYMBICORT 160/4.5MCG INHALER 6GM INH SCH (07:59)
[2018-11-09 08:00] VITALS: BP 146/81
[2018-11-09] MEDS: NICOTINE 21MG/24HR 1 EA TRANSDERMAL TOP SCH (08:27)
[2018-11-09] MEDS: raNITIdine SYRUP 150 MG/10 ML UDC PO SCH (08:27)
[2018-11-09] MEDS: ENOXAPARIN 40 MG/0.4 ML SYRINGE (J1650) SC SCH (08:27)
[2018-11-09] MEDS: ASPIRIN 81 MG ENTERIC TAB PO SCH (08:28)
[2018-11-09] MEDS ORDERED: LEVEMIR (INSULIN DETEMIR) 1 UNITS/0.01ML SC SCH (09:00)
[2018-11-09] MEDS ORDERED: methylPREDNISolone INJ 125 MG/2 ML VIAL (J2930) IV SCH (10:00)
[2018-11-09] MEDS ORDERED: PRED10TA2 PO (10:41)
--- NOTE | 2018-11-09 11:32 | DS.PDOC ---
Discharge Summary General Date of Admission Nov 07, 2018 at 21:21 Date of Discharge 11/09/18 Discharge Summary PROCEDURES PERFORMED DURING STAY: [None]. DISCHARGE DIAGNOSES: COPD exacerbation Acute on chronic respiratory failure with hypoxia and hypercarbia. Chronic Diastolic CHF Morbid obesity JIGNESH on BIPAP GERD Tobacco dependence. Impaired Glucose tolerance and steroid induced hyperglycemia COMPLICATIONS/CHIEF COMPLAINT: Copd Exacerbation. HISTORY OF PRESENT ILLNESS: Please see history and physical HOSPITAL COURSE: 63 year old female admitted for COPD exacerbation. COPD exacerbation improved. Continue BiPAP with oxygen supplementation steroid taper. procalcitonin negative. Continue Symbicort Continue Mucinex Respiratory panel negative. blood cultures negative. Acute on Chronic hypoxic and hypercarbic respiratory failure continue oxygen supplementation 2 l when awake BIPAP when sleeping with 8 l bleed in On the day of admission her RR was 22 to 34 and oxygen saturations of 87% to 89% with her usual oxygen supplementation. Grade 2 diastolic congestive heart failure, compensated Furosemide 40mg PO daily Weight daily Tobacco dependence Nicotine replacement patch daily Smoking cessation counseling JIGNESH Continue with BiPAP with 8 liters Oxygen bleed in Morbid obesity complicating care Impaired glucose tolerance worsens when on steroids with sugars in hospital greater than 300 carb consistent diet A!C was 6.1 in 2018 GERD Continue with Ranitidine will add PPI as on high dose steroids. DISCHARGE MEDICATIONS: Please see below. ALLERGIES: Please see below. PHYSICAL EXAMINATION ON DISCHARGE: VITAL SIGNS: Please see below. General Exam: Positive: Alert, Cooperative Eye Exam: Positive: PERRLA, Conjunctiva & lids normal, EOMI; Negative: Sclera icteric, Ptosis ENT Exam: Positive: Atraumatic, Mucous membr. moist/pink, Pharynx Normal, Tongue Midline, Nares Patent, Other ENT (BiPAP in place); Negative: Pharyngeal Edema Neck Exam: Positive: Supple, +2 carotid pulse wo bruit; Negative: JVD, thyromegaly, Lymphadenopathy Chest Exam: Positive: Rhonchi, Wheezing, Diminished; Negative: Clear to auscultation, Normal air movement Heart Exam: Positive: Rate Normal, Tachycardic, Regular Rhythm, Normal S1, Normal S2; Negative: Gallops, Murmurs, Rubs Telemetry: Positive: Tachycardia Abdomen Exam: Positive: Normal bowel sounds, Soft, Hernia; Negative: Tenderness, Hepatospenomegaly, Mass Extremity Exam: Negative: Clubbing, Cyanosis, Edema, Normal pulses (tachycardic), Tenderness, Swelling Skin Exam: Negative: Rash, Lesion Neuro Exam: Positive: Cranial Nerves 3-12 NL Psych Exam: Positive: Oriented x 3 LABORATORY DATA: Please see below. ACTIVITY: [As tolerated]. DIET: Carb consistent DISCHARGE PLAN: Home DISPOSITION: . DISCHARGE INSTRUCTIONS: Follow up with PMD in 1 week DISCHARGE CONDITION: [Stable]. TIME SPENT ON DISCHARGE: 40 minutes. Vital Signs/I&Os Vital Signs Date Time Temp Pulse Resp B/P (MAP) Pulse Ox O2 Delivery O2 Flow Rate FiO2 11/09/18 08:08 2.0 11/09/18 08:00 97.1 93 20 146/81 (102) 99 11/07/18 21:59 NIPPV (BIPAP/CPAP) I&O- Last 24 Hours up to 6 AM 11/09/18 05:59 Intake Total 1010 ml Output Total 300 ml Balance 710 ml Laboratory Data Labs 24H Laboratory Tests 2 11/09/18 05:07: Nucleated Red Blood Cells % (auto) 0.0, Anion Gap 7L, Glomerular Filtration Rate 39.6L, Blood Urea Nitrogen 24#H, Creatinine 1.43H, Sodium Level 141, Potassium Level 4.8, Chloride Level 106, Carbon Dioxide Level 28, Calcium Level 10.0 CBC/BMP Laboratory Tests 11/09/18 05:07 Red Blood Count 4.75, Mean Corpuscular Volume 89.5, Mean Corpuscular Hemoglobin 27.8, Mean Corpuscular Hemoglobin Concent 31.1 L, Red Cell Distribution Width 15.5 H, Calcium Level 10.0 Microbiology Microbiology 11/07/18 Blood Culture - Preliminary, Resulted No growth after 24 hours . All specim... 11/07/18 Blood Culture - Preliminary, Resulted No growth after 24 hours . All specim... 11/09/18 Gram Stain, Received Pending 11/09/18 Sputum Culture, Received Pending 11/07/18 Respiratory Virus Panel (PCR) (JOHNNY) - Final, Complete Discharge Medications Scheduled Aspirin (Aspirin EC) 81 Mg Tabec, 81 MG PO DAILY, (Reported) Budesonide/Formoterol (Symbicort 160-4.5 Mcg Inhaler) 60 Puff/Inhaler Aers, 2 PUFF INH BID, (Reported) Clotrimazole/Betamethasone Dip (Clotrimazole-Betamethasone Crm) 1 Dose/15 Gm Cream, 1 DOSE TOP BID, (Reported) USES ON ELBOWS Furosemide (Furosemide) 40 Mg Tab, 40 MG PO DAILY, (Reported) Nicotine (Nicotine Patch) 21 Mg Patch.td24, 1 PATCH TOP DAILY, (Reported) APPLIES TO ARMS OR CHEST. PATIENT DOES NOT HAVE PATCH ON CURRENTLY. Prednisone (Prednisone) 10 Mg Tablet, 10 MG PO TAPER Take 4 tabs daily x 3 days, then 3 tabs daily x 3 days, then 2 tabs daily x 3 days, then 1 tab daily x 3 days and stop Ranitidine HCl (Ranitidine HCl) 300 Mg Tab, 1 TAB PO DAILY, (Reported) Scheduled PRN Albuterol Sulf (Albuterol Sulfate) 2.5 Mg/3 Ml Nebu, 2.5 MG INH Q4H PRN for SHORTNESS OF BREATH, (Reported) Albuterol Sulfate (Proair Hfa) 108 Mcg/Act Aer, 2 PUFF INH Q4H PRN for SHORTNESS OF BREATH, (Reported) Diphenhydramine HCl (Diphenhist) 25 Mg Cap, 25 MG PO QHS PRN for SLEEP, (Reported) Guaifenesin (Mucinex) 600 Mg Tab.er.12h, 600 MG PO BID PRN for CONGESTION, (Reported) Allergies Coded Allergies: Penicillins (Verified Allergy, Intermediate, HIVES, 09/02/18) pt has had cefdinir in the past metronidazole (Verified Allergy, Intermediate, itching, 11/07/18) Quinolones (Verified Allergy, Mild, RASH, 08/30/18) aripiprazole (Verified Adverse Reaction, Intermediate, TACHYCARDIA, 08/30/18) Sulfa (Sulfonamide Antibiotics) (Verified Adverse Reaction, Mild, VOMITING, BLISTERS, TACHYCARDIA, 10/08/18) Macrolide Antibiotics (Verified Adverse Reaction, Unknown, ITCHY, HIVES, 10/08/18) Tetracyclines (Verified Adverse Reaction, Unknown, TACHYCARDIA, BLISTERS, HIVES, 10/08/18) venlafaxine (Verified Adverse Reaction, Unknown, INCREASED HR, 10/08/18) SHERI RODRIGUEZ MD Nov 09, 2018 11:32
[2018-11-09 12:40] LABS: HEMOGLOBIN A1c 8.1 %
[2018-11-09] MEDS ORDERED: HumaLOG INSULIN (NovoLOG) PER UNIT SC SCH (21:00)
== END 2018-11-09 13:20 | disposition home or self-care (01) | DRG 190 ==
LOC: EDBD 15:42 → M ED 15:42 → M ED INP 21:21 → M PCU 23:28
PROVIDERS: ADMIT Student in an Organized Health Care Education/Training Program; ATTEND Internal Medicine Nephrology
DX: J44.1 Chronic obstructive pulmonary disease with (acute) exacerbation (principal); J96.21 Acute and chronic respiratory failure with hypoxia; J96.22 Acute and chronic respiratory failure with hypercapnia; I50.32 Chronic diastolic (congestive) heart failure; Z68.41 Body mass index [BMI] 40.0-44.9, adult; E66.01 Morbid (severe) obesity due to excess calories; G47.33 Obstructive sleep apnea (adult) (pediatric); K21.9 Gastro-esophageal reflux disease without esophagitis; F17.200 Nicotine dependence, unspecified, uncomplicated; R73.9 Hyperglycemia, unspecified; Z79.82 Long term (current) 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; Z79.899 Other long term (current) drug therapy; Z88.0 Allergy status to penicillin; Z88.8 Allergy status to other drugs, medicaments and biological substances; Z88.2 Allergy status to sulfonamides; I11.0 Hypertensive heart disease with heart failure; I27.20 Pulmonary hypertension, unspecified

== ENCOUNTER 2018-12-16 03:03 | Inpatient (IN) | payer MEDICARE, MEDICAID ==
[~2018-12-16] VITALS: Ht 167.6 cm; Wt 118.0 kg
[2018-12-16 03:47] LABS: VENOUS BASE EXCESS 0.5 (-2.0-2.0); VENOUS HCO3 25.9 MEQ/L (23.0-27.0); VENOUS O2 SATURATION 95.1 % (60.0-80.0); VENOUS PARTIAL PRESSURE CO2 44.3 mmHg (38.0-50.0); VENOUS PARTIAL PRESSURE O2 76.9 mmHg (30.0-50.0); VENOUS PH 7.384 UNITS (7.330-7.430); VENOUS STANDARD HCO3 24.8 MEQ/L; VENOUS TOTAL CO2 27.2 MEQ/L (24.0-28.0)
[2018-12-16 04:12] LABS: BLOOD UREA NITROGEN 12 MG/DL (7-18); CALCIUM LEVEL 9.1 MG/DL (8.8-10.2); CARBON DIOXIDE LEVEL 28 MEQ/L (21-32); CHLORIDE LEVEL 108 MEQ/L (98-107); CK-MB VALUE MASS < 1.0 NG/ML (<3.6); CPK CREATINE PHOSPHOKINASE 77 U/L (26-192); CREATININE FOR GFR 1.03 MG/DL (0.55-1.30); GLOMERULAR FILTRATION RATE 57.8 (>45); GLUCOSE, FASTING 148 MG/DL (70-100); NT-PRO BNP 57 PG/ML (<125); POTASSIUM SERUM 4.7 MEQ/L (3.5-5.1); SODIUM LEVEL 143 MEQ/L (136-145); TROPONIN I < 0.02 NG/ML (< 0.10)
[2018-12-16 04:44] LABS: BASO # 0.1 10^3/uL (0.0-0.2); BASO % 0.5 % (0.0-1.0); EOS # 0.1 10^3/uL (0.0-0.50); EOS % 1.4 % (0.0-3.0); HEMATOCRIT 43.3 % (36.0-47.0); HEMOGLOBIN 13.5 g/dl (12.0-15.5); LYMPH # 1.9 10^3/uL (1.5-4.5); LYMPH % 20.2 % (24.0-44.0); MEAN CORPUSCULAR HEMOGLOBIN 27.9 pg (27.0-33.0); MEAN CORPUSCULAR HGB CONC 31.2 g/dl (32.0-36.5); MEAN CORPUSCULAR VOLUME 89.5 fl (80.0-96.0); MONO # 0.6 10^3/uL (0.0-0.8); MONO % 6.3 % (0.0-5.0); NEUTROPHILS # 6.5 10^3/uL (1.8-7.7); NEUTROPHILS % 70.8 % (36.0-66.0); PLATELET COUNT, AUTOMATED 233 10^3/uL (150-450); RED BLOOD COUNT 4.84 10^6/uL (4.00-5.40); WHITE BLOOD COUNT 9.2 10^3/uL (4.0-10.0)
[2018-12-16] MEDS ORDERED: ISOVUE-370 76% 100ML VIAL (Q9967) As Ordered ONE (05:28)
[2018-12-16] MEDS ORDERED: IPRATROPIUM 0.5MG/ALBUTEROL 2.5MG INH SOL UD 3ML (DUONEB)(J7620) NEB ONE ×3 (05:30→10:15)
[2018-12-16] MEDS ORDERED: methylPREDNISolone INJ 125 MG/2 ML VIAL (J2930) IV ONE (05:30)
--- NOTE | 2018-12-16 08:07 | REPVR ---
EXAM: CT Angiography Chest With Contrast EXAM DATE/TIME: 12/16/2018 5:47 AM CLINICAL HISTORY: 63 years old, female; Shortness of breath; Additional info: SOB TECHNIQUE: Imaging protocol: Axial computed tomographic angiography images of the chest with intravenous contrast using CT angiography protocol. Coronal and sagittal reformatted images were created and reviewed. 3D rendering: MIP reconstructed images were created and reviewed. Radiation optimization: All CT scans at this facility use at least one of these dose optimization techniques: automated exposure control; mA and/or kV adjustment per patient size (includes targeted exams where dose is matched to clinical indication); or iterative reconstruction. Contrast material: ISOVUE 370; Contrast volume: 100 ml; Contrast route: IV; COMPARISON: CT ANGIO CHEST 11/07/2018 5:51 PM FINDINGS: Pulmonary arteries: Normal. No pulmonary emboli. Aorta: Calcified thoracic aorta. Lungs: Emphysema changes within both lungs with hyperinflation and patchy groundglass opacities. More focal interstitial parenchymal scarring right lower lobe. Recently described nodules right midlung are not well appreciated on the current CT which could be due to small size and scan plane variation. Pleural space: A few additional scattered areas of pleural-parenchymal scarring. Minor bronchiectasis lingula. Calcification right lower chest pleural margin of the diaphragm. Heart: Right to left ventricular ratio 0.8. Lymph nodes: Likely small right hilar lymph node measures 1.0 CM. Small lower posterior mediastinal lymph nodes measure less than 1 CM in size. Bones/joints: Small nonspecific lucency within T10 vertebral body. Soft tissues: Unremarkable. IMPRESSION: 1. No visualized acute pulmonary embolus. 2. Hyperinflation with emphysematous changes. 3. Areas of pleural-parenchymal scarring. 4. Small lucency T10 vertebral body. Finding is similar compared to the prior CT 11/07/18. Electronically signed by: Leann Mccarthy On 12/16/2018 08:06:34 AM
--- NOTE | 2018-12-16 08:55 | REP ---
Portable chest x-ray: Single view. History: Dyspnea and cough. Comparison chest x-ray: November 07, 2018. Findings: EKG monitoring electrodes overlie the chest. Heart is not enlarged. Lungs are hyperinflated with emphysematous changes and oligemia in the upper lobes bilaterally unchanged. Interstitial markings are little prominent or parotid in the bases. There is linear fibrosis in the left base. These findings are unchanged. No acute infiltrate is seen. Impression: Changes consistent with COPD. No acute infiltrate. Electronically Signed by Edward Ramírez MD 12/16/2018 08:47 A
[2018-12-16] MEDS: FUROSEMIDE 40 MG TAB PO SCH (09:00)
--- NOTE | 2018-12-16 11:28 | HPEPDOC ---
[facility] Medical History & Physical Date of Admission Dec 16, 2018 History and Physical CHIEF COMPLAINT: Shortness of breath HISTORY OF PRESENT ILLNESS: 63 yo female presents for worsening shortness of breath and cough productive of thick sputum, with difficulty with expectoration. Denies any other complaints, no chest pain, abdominal pain, nausea, vomiting or diarrhea. Admits to exposure to second hand smoke, but denies smoking. PAST MEDICAL HISTORY: 1. Diverticulitis 2. Chronic respiratory failure on BiPAP/COPD 3. Grade 2 diastolic congestive heart failure, compensated 3. HTN 4. Tobacco dependence on nicotine replacement 5. Morbid obesity 6. GERD 7. JIGNESH 8. Moderate pulmonary HTN 9. Periodic limb movement disorder PAST SURGICAL HISTORY: 1. Colonoscopy 2. EGD 3. Appendectomy 4. Cholecystectomy 5. Hysterectomy ALLERGIES: Please see below. REVIEW OF SYSTEMS: Negative except as per HPI. HOME MEDICATIONS: Please see below. PHYSICAL EXAMINATION: VITAL SIGNS: See below. GENERAL APPEARANCE: NAD, lying comfortably in bed HEENT: NC/AT, EOMI, PERRL CARDIOVASCULAR: +S1S2, RRR LUNGS: diffuse wheezes ABDOMEN: soft, obese, NT, +BS LABORATORY DATA: See below. MICROBIOLOGY: Please see below. ASSESSMENT: 63 yo female for COPD exacerbation #COPD exac - IV steroids - respiratory treatments - mucolytics - IS/acapella - supplemental O2 wean to 88-92% #Chronic respiratory failure on BiPAP/COPD #Grade 2 diastolic congestive heart failure, compensated #HTN # Tobacco dependence on nicotine replacement # Morbid obesity # GERD # JIGNESH # Moderate pulmonary HTN # Periodic limb movement disorder Vital Signs Vital Signs Date Time Temp Pulse Resp B/P (MAP) Pulse Ox O2 Delivery O2 Flow Rate FiO2 12/16/18 10:31 112 90 Nasal Cannula 2.0 12/16/18 10:30 155/81 (105) 12/16/18 06:18 20 12/16/18 03:18 97.6 Laboratory Data Labs 24H Laboratory Tests 2 12/16/18 03:40: Blood Gas Bicarbonate Standard 24.8, Venous Blood pH 7.384, Venous Blood Partial Pressure CO2 44.3, Venous Blood Partial Pressure O2 76.9H, Venous Blood Total Carbon Dioxide 27.2, Venous Blood HCO3 25.9, Venous Blood Oxygen Saturation 95.1H, Venous Blood Base Excess 0.5, Anion Gap 7L, Glomerular Filtration Rate 57.8, Blood Urea Nitrogen 12, Creatinine 1.03, Sodium Level 143, Potassium Level 4.7, Chloride Level 108H, Carbon Dioxide Level 28, Calcium Level 9.1, Total Creatine Kinase 77, Creatine Kinase MB < 1.0, Creatine Kinase MB Relative Index 1.30, Troponin I < 0.02, QU-Yzt-G-Type Natriuretic Peptide 57 12/16/18 04:37: Immature Granulocyte % (Auto) 0.8, White Blood Count 9.2, Red Blood Count 4.84, Hemoglobin 13.5, Hematocrit 43.3, Mean Corpuscular Volume 89.5, Mean Corpuscular Hemoglobin 27.9, Mean Corpuscular Hemoglobin Concent 31.2L, Red Cell Distribution Width 16.7H, Platelet Count 233, Neutrophils (%) (Auto) 70.8H, Lymphocytes (%) (Auto) 20.2L, Monocytes (%) (Auto) 6.3H, Eosinophils (%) (Auto) 1.4, Basophils (%) (Auto) 0.5, Neutrophils # (Auto) 6.5, Lymphocytes # (Auto) 1.9, Monocytes # (Auto) 0.6, Eosinophils # (Auto) 0.1, Basophils # (Auto) 0.1, Nucleated Red Blood Cells % (auto) 0.0 CBC/BMP Laboratory Tests 12/16/18 03:40 Calcium Level 9.1, Total Creatine Kinase 77 12/16/18 04:37 Red Blood Count 4.84, Mean Corpuscular Volume 89.5, Mean Corpuscular Hemoglobin 27.9, Mean Corpuscular Hemoglobin Concent 31.2 L, Red Cell Distribution Width 16.7 H, Neutrophils (%) (Auto) 70.8 H, Lymphocytes (%) (Auto) 20.2 L, Monocytes (%) (Auto) 6.3 H, Eosinophils (%) (Auto) 1.4, Basophils (%) (Auto) 0.5, Neutrophils # (Auto) 6.5, Lymphocytes # (Auto) 1.9, Monocytes # (Auto) 0.6, Eosinophils # (Auto) 0.1, Basophils # (Auto) 0.1 Home Medications Scheduled Aspirin (Aspirin EC) 81 Mg Tabec, 81 MG PO DAILY Budesonide/Formoterol (Symbicort 160-4.5 Mcg Inhaler) 60 Puff/Inhaler Aers, 2 PUFF INH BID Clotrimazole/Betamethasone Dip (Clotrimazole-Betamethasone Crm) 1 Dose/15 Gm Cream, 1 DOSE TOP BID USES ON ELBOWS Furosemide (Furosemide) 40 Mg Tab, 40 MG PO DAILY Loperamide HCl (Anti-Diarrheal) 2 Mg Tablet, 2 MG PO DAILY Loratadine (Claritin) 10 Mg Capsule, 10 MG PO DAILY Nicotine (Nicotine Patch) 21 Mg Patch.td24, 1 PATCH TOP DAILY APPLIES TO ARMS OR CHEST. PATIENT DOES NOT HAVE PATCH ON CURRENTLY. Ranitidine HCl (Ranitidine HCl) 300 Mg Tab, 1 TAB PO DAILY Scheduled PRN Albuterol Sulf (Albuterol Sulfate) 2.5 Mg/3 Ml Nebu, 2.5 MG INH Q4H PRN for SHORTNESS OF BREATH Albuterol Sulfate (Proair Hfa) 108 Mcg/Act Aer, 2 PUFF INH Q4H PRN for SHORTNESS OF BREATH Olopatadine HCl (Olopatadine HCl) 0.1% 5ML Drops, 1 DROP OU BID PRN for REDNESS/IRRITATION Tramadol HCl (Tramadol HCl) 50 Mg Tablet, 50 MG PO QID PRN for PAIN Allergies Coded Allergies: Penicillins (Verified Allergy, Intermediate, HIVES, 09/02/18) pt has had cefdinir in the past metronidazole (Verified Allergy, Intermediate, itching, 11/07/18) Quinolones (Verified Allergy, Mild, RASH, 08/30/18) aripiprazole (Verified Adverse Reaction, Intermediate, TACHYCARDIA, 08/30/18) Sulfa (Sulfonamide Antibiotics) (Verified Adverse Reaction, Mild, VOMITING, BLISTERS, TACHYCARDIA, 10/08/18) Macrolide Antibiotics (Verified Adverse Reaction, Unknown, ITCHY, HIVES, 10/08/18) Tetracyclines (Verified Adverse Reaction, Unknown, TACHYCARDIA, BLISTERS, HIVES, 10/08/18) venlafaxine (Verified Adverse Reaction, Unknown, INCREASED HR, 10/08/18) A-FIB/CHADSVASC A-FIB History Current/History of A-Fib/PAF?: No Current PO Anticoag Therapy: No MOISES REAGAN MD Dec 16, 2018 11:28
[2018-12-16] MEDS ORDERED: IPRATROPIUM 0.5MG/ALBUTEROL 2.5MG INH SOL UD 3ML (DUONEB)(J7620) NEB PRN (11:30)
[2018-12-16] MEDS ORDERED: ANTI2TAB16 PO (12:02)
[2018-12-16] MEDS ORDERED: CLAR10CA3 PO (12:02)
[2018-12-16] MEDS ORDERED: TRAM50TA2 PO (12:02)
[2018-12-16] MEDS ORDERED: OLOP0.1D OU (12:02)
[2018-12-16] MEDS ORDERED: traMADol 50 MG TAB PO PRN (12:30)
[2018-12-16] MEDS ORDERED: guaiFENesin 200 MG TAB PO PRN (12:30)
[2018-12-16] MEDS: ASPIRIN 81 MG ENTERIC TAB PO SCH (13:40)
[2018-12-16] MEDS: LORATADINE 10 MG TAB PO SCH (13:40)
[2018-12-16] MEDS: NICOTINE 21MG/24HR 1 EA TRANSDERMAL TOP SCH (13:41)
[2018-12-16] MEDS: methylPREDNISolone INJ 125 MG/2 ML VIAL (J2930) IV SCH ×2 (13:42→22:15)
[2018-12-16] MEDS: PANTOPRAZOLE 40MG TAB (PROTONIX) PO SCH (14:43)
[2018-12-16] MEDS: IPRATROPIUM 0.5MG/ALBUTEROL 2.5MG INH SOL UD 3ML (DUONEB)(J7620) NEB SCH ×2 (15:05→20:00)
[2018-12-16] MEDS: SYMBICORT 160/4.5MCG INHALER 6GM INH SCH (21:00)
[2018-12-16 22:00] VITALS: BP 107/69
[2018-12-17] MEDS: methylPREDNISolone INJ 125 MG/2 ML VIAL (J2930) IV SCH ×3 (05:39→21:11)
[2018-12-17 06:00] VITALS: BP 123/78
[2018-12-17 06:06] VITALS: BP 123/78
[2018-12-17 07:20] LABS: HEMATOCRIT 42.8 % (36.0-47.0); HEMOGLOBIN 13.4 g/dl (12.0-15.5); MEAN CORPUSCULAR HEMOGLOBIN 27.4 pg (27.0-33.0); MEAN CORPUSCULAR HGB CONC 31.3 g/dl (32.0-36.5); MEAN CORPUSCULAR VOLUME 87.5 fl (80.0-96.0); PLATELET COUNT, AUTOMATED 284 10^3/uL (150-450); RED BLOOD COUNT 4.89 10^6/uL (4.00-5.40); WHITE BLOOD COUNT 16.7 10^3/uL (4.0-10.0)
[2018-12-17] MEDS: IPRATROPIUM 0.5MG/ALBUTEROL 2.5MG INH SOL UD 3ML (DUONEB)(J7620) NEB SCH ×4 (07:23→21:35)
[2018-12-17] MEDS: SYMBICORT 160/4.5MCG INHALER 6GM INH SCH ×2 (07:23→21:35)
[2018-12-17 07:41] LABS: CALCIUM LEVEL 9.7 MG/DL (8.8-10.2); CREATININE FOR GFR 1.43 MG/DL (0.55-1.30); GLOMERULAR FILTRATION RATE 39.6 (>45); POTASSIUM SERUM 4.4 MEQ/L (3.5-5.1)
[2018-12-17] MEDS: LORATADINE 10 MG TAB PO SCH (09:08)
[2018-12-17] MEDS: FUROSEMIDE 40 MG TAB PO SCH (09:08)
[2018-12-17] MEDS: PANTOPRAZOLE 40MG TAB (PROTONIX) PO SCH (09:08)
[2018-12-17] MEDS: ASPIRIN 81 MG ENTERIC TAB PO SCH (09:09)
[2018-12-17] MEDS: NICOTINE 21MG/24HR 1 EA TRANSDERMAL TOP SCH (09:09)
--- NOTE | 2018-12-17 11:41 | IPNPDOC ---
Text Note Date of Service The patient was seen on 12/17/18. NOTE Subjective: Patient seen and examined at bedside. No acute overnight events. States her breathing has slightly improved, but not at baseline. Objective: VITAL SIGNS: See below. GENERAL APPEARANCE: NAD, lying comfortably in bed HEENT: NC/AT, EOMI, PERRL CARDIOVASCULAR: +S1S2, RRR LUNGS: diffuse wheezes ABDOMEN: soft, obese, NT, +BS LABORATORY DATA: See below. MICROBIOLOGY: Please see below. ASSESSMENT: 63 yo female for COPD exacerbation #COPD exac - IV steroids - respiratory treatments - mucolytics - IS/acapella - supplemental O2 wean to 88-92% #Chronic respiratory failure on BiPAP/COPD #Grade 2 diastolic congestive heart failure, compensated #HTN # Tobacco dependence on nicotine replacement # Morbid obesity # GERD # JIGNESH # Moderate pulmonary HTN # Periodic limb movement disorder #DVT prophylaxis - mechanical VS,Fishbone, I+O VS, Fishbone, I+O Laboratory Tests 12/17/18 06:55 Red Blood Count 4.89, Mean Corpuscular Volume 87.5, Mean Corpuscular Hemoglobin 27.4, Mean Corpuscular Hemoglobin Concent 31.3 L, Red Cell Distribution Width 16.7 H, Calcium Level 9.7 Vital Signs Date Time Temp Pulse Resp B/P (MAP) Pulse Ox O2 Delivery O2 Flow Rate FiO2 12/17/18 09:09 18 12/17/18 06:00 97.7 100 123/78 (93) 94 2.0 12/16/18 17:01 Nasal Cannula I&O- Last 24 Hours up to 6 AM 12/17/18 06:00 Intake Total 400 ml Output Total 200 ml Balance 200 ml MOISES REAGAN MD Dec 17, 2018 11:41
[2018-12-17 14:00] VITALS: BP 131/83
[2018-12-17 20:15] VITALS: BP 125/77
[2018-12-18] MEDS: methylPREDNISolone INJ 125 MG/2 ML VIAL (J2930) IV SCH ×2 (05:00→12:56)
[2018-12-18 05:19] VITALS: BP 145/93
[2018-12-18] MEDS: SYMBICORT 160/4.5MCG INHALER 6GM INH SCH (07:14)
[2018-12-18] MEDS: NICOTINE 21MG/24HR 1 EA TRANSDERMAL TOP SCH (08:47)
[2018-12-18] MEDS: FUROSEMIDE 40 MG TAB PO SCH (08:48)
[2018-12-18] MEDS: LORATADINE 10 MG TAB PO SCH (08:48)
[2018-12-18] MEDS: PANTOPRAZOLE 40MG TAB (PROTONIX) PO SCH (08:48)
[2018-12-18] MEDS: ASPIRIN 81 MG ENTERIC TAB PO SCH (08:48)
[2018-12-18] MEDS: IPRATROPIUM 0.5MG/ALBUTEROL 2.5MG INH SOL UD 3ML (DUONEB)(J7620) NEB SCH ×2 (11:08→15:44)
[2018-12-18 14:00] VITALS: BP 164/93
[2018-12-18 14:30] VITALS: BP 146/78
[2018-12-18] MEDS ORDERED: DELT1TAB PO (16:00)
--- NOTE | 2018-12-18 16:35 | ECGEPIP ---
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
--- NOTE | 2018-12-18 18:06 | DS.PDOC ---
Discharge Summary General Date of Admission Dec 16, 2018 at 11:19 Date of Discharge 12/18/18 Discharge Summary PROCEDURES PERFORMED DURING STAY: [None]. ADMITTING DIAGNOSES: 1.Acute exacerbation of COPD 2. Chronic hypercarbic respiratory failure on BiPAP/COPD 3. Grade 2 diastolic congestive heart failure, compensated 3. HTN 4. Tobacco dependence on nicotine replacement 5. Morbid obesity 6. GERD 7. JIGNESH 8. Moderate pulmonary HTN 9. Periodic limb movement disorder 10.Acute hypoxic and hypercarbic respiratory failure DISCHARGE DIAGNOSES: same COMPLICATIONS/CHIEF COMPLAINT: Copd Exacerbation. HISTORY OF PRESENT ILLNESS: 63 yo female presents for worsening shortness of breath and cough productive of thick sputum, with difficulty with expectoration. Denies any other complaints, no chest pain, abdominal pain, nausea, vomiting or diarrhea. Admits to exposure to second hand smoke, but denies smoking. HOSPITAL COURSE: Pt was admitted with above presentation. Received O2 therapy, pulse oximetry, bronchodilators ATC and PRN, inhaled CS, Solumedrol IV. No evidence of PE or pneumonia in chest imaging. Pt is now clinically optimized to dc home with five days of po prednisone 40mg. DISCHARGE MEDICATIONS: Please see below. ALLERGIES: Please see below. PHYSICAL EXAMINATION ON DISCHARGE: VITAL SIGNS: See below. GENERAL APPEARANCE: NAD, lying comfortably in bed HEENT: NC/AT, EOMI, PERRL CARDIOVASCULAR: +S1S2, RRR LUNGS: diffuse wheezes ABDOMEN: soft, obese, NT, +BS LABORATORY DATA: Please see below. IMAGING: CTA 12/16/18 IMPRESSION: 1. No visualized acute pulmonary embolus. 2. Hyperinflation with emphysematous changes. 3. Areas of pleural-parenchymal scarring. 4. Small lucency T10 vertebral body. Finding is similar compared to the prior CT 11/07/18. CXR: No acute infiltrates PROGNOSIS: Fair ACTIVITY: [As tolerated]. DIET: low fat low calorie DISPOSITION: Home, Self-Care. DISCHARGE INSTRUCTIONS: 1. return to ED with breathing difficulty dizziness chest pain ITEMS TO FOLLOWUP ON ON OUTPATIENT: 1. Pulmonary Clinic as per schedule 2.PCP in one week DISCHARGE CONDITION: [Stable]. TIME SPENT ON DISCHARGE: 35 minutes. Vital Signs/I&Os Vital Signs Date Time Temp Pulse Resp B/P (MAP) Pulse Ox O2 Delivery O2 Flow Rate FiO2 12/18/18 14:30 146/78 (100) 12/18/18 14:00 97.9 103 20 99 2.0 12/16/18 17:01 Nasal Cannula I&O- Last 24 Hours up to 6 AM 12/18/18 06:00 Intake Total 1080 ml Output Total 600 ml Balance 480 ml Microbiology Microbiology 12/18/18 Gram Stain - Final, Resulted 12/18/18 Sputum Culture, Resulted Pending Discharge Medications Scheduled Aspirin (Aspirin EC) 81 Mg Tabec, 81 MG PO DAILY, (Reported) Budesonide/Formoterol (Symbicort 160-4.5 Mcg Inhaler) 60 Puff/Inhaler Aers, 2 PUFF INH BID, (Reported) Clotrimazole/Betamethasone Dip (Clotrimazole-Betamethasone Crm) 1 Dose/15 Gm Cream, 1 DOSE TOP BID, (Reported) USES ON ELBOWS Furosemide (Furosemide) 40 Mg Tab, 40 MG PO DAILY, (Reported) Loratadine (Claritin) 10 Mg Capsule, 10 MG PO DAILY, (Reported) Nicotine (Nicotine Patch) 21 Mg Patch.td24, 1 PATCH TOP DAILY, (Reported) APPLIES TO ARMS OR CHEST. PATIENT DOES NOT HAVE PATCH ON CURRENTLY. Prednisone (Deltasone) 20 Mg Tablet, 40 MG PO DAILY Ranitidine HCl (Ranitidine HCl) 300 Mg Tab, 1 TAB PO DAILY, (Reported) Scheduled PRN Albuterol Sulf (Albuterol Sulfate) 2.5 Mg/3 Ml Nebu, 2.5 MG INH Q4H PRN for SHORTNESS OF BREATH, (Reported) Albuterol Sulfate (Proair Hfa) 108 Mcg/Act Aer, 2 PUFF INH Q4H PRN for SHORTNESS OF BREATH, (Reported) Olopatadine HCl (Olopatadine HCl) 0.1% 5ML Drops, 1 DROP OU BID PRN for REDNESS/IRRITATION, (Reported) Tramadol HCl (Tramadol HCl) 50 Mg Tablet, 50 MG PO QID PRN for PAIN, (Reported) Allergies Coded Allergies: Penicillins (Verified Allergy, Intermediate, HIVES, 09/02/18) pt has had cefdinir in the past metronidazole (Verified Allergy, Intermediate, itching, 11/07/18) Quinolones (Verified Allergy, Mild, RASH, 08/30/18) aripiprazole (Verified Adverse Reaction, Intermediate, TACHYCARDIA, 08/30/18) Sulfa (Sulfonamide Antibiotics) (Verified Adverse Reaction, Mild, VOMITING, BLISTERS, TACHYCARDIA, 10/08/18) Macrolide Antibiotics (Verified Adverse Reaction, Unknown, ITCHY, HIVES, 10/08/18) Tetracyclines (Verified Adverse Reaction, Unknown, TACHYCARDIA, BLISTERS, HIVES, 10/08/18) venlafaxine (Verified Adverse Reaction, Unknown, INCREASED HR, 10/08/18) JOSE MANUEL ESPINOSA MD Dec 18, 2018 18:06
== END 2018-12-18 17:05 | disposition home or self-care (01) | DRG 189 ==
LOC: M ED 03:03 → M ED INP 11:19 → M MS5PR 17:15
PROVIDERS: ADMIT Internal Medicine; ATTEND Hospitalist
DX: J96.21 Acute and chronic respiratory failure with hypoxia (principal); J44.1 Chronic obstructive pulmonary disease with (acute) exacerbation; I50.32 Chronic diastolic (congestive) heart failure; J96.11 Chronic respiratory failure with hypoxia; G47.33 Obstructive sleep apnea (adult) (pediatric); K21.9 Gastro-esophageal reflux disease without esophagitis; I11.0 Hypertensive heart disease with heart failure; F17.200 Nicotine dependence, unspecified, uncomplicated; E66.01 Morbid (severe) obesity due to excess calories; I27.20 Pulmonary hypertension, unspecified; G47.61 Periodic limb movement disorder; Z79.82 Long term (current) 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; Z79.899 Other long term (current) drug therapy; Z88.0 Allergy status to penicillin; Z88.8 Allergy status to other drugs, medicaments and biological substances; Z88.2 Allergy status to sulfonamides

== ENCOUNTER 2019-01-08 18:58 | Emergency (ER) | payer MEDICARE, MEDICAID ==
[~2019-01-08] VITALS: Ht 170.2 cm; Wt 111.4 kg
[~2019-01-08 18:58] MED LIST changes: +ANTI2TAB16 PO; +CLAR10CA3 PO; +DELT1TAB PO; +OLOP0.1D OU
[2019-01-08 19:30] LABS: VENOUS BASE EXCESS 1.5 (-2.0-2.0); VENOUS HCO3 28.6 MEQ/L (23.0-27.0); VENOUS O2 SATURATION 74.4 % (60.0-80.0); VENOUS PARTIAL PRESSURE CO2 54.8 mmHg (38.0-50.0); VENOUS PARTIAL PRESSURE O2 40.5 mmHg (30.0-50.0); VENOUS PH 7.335 UNITS (7.330-7.430); VENOUS STANDARD HCO3 25.2 MEQ/L; VENOUS TOTAL CO2 30.3 MEQ/L (24.0-28.0)
[2019-01-08 19:32] LABS: BASO # 0.1 10^3/uL (0.0-0.2); BASO % 0.6 % (0.0-1.0); EOS # 0.3 10^3/uL (0.0-0.50); EOS % 2.4 % (0.0-3.0); HEMATOCRIT 44.3 % (36.0-47.0); HEMOGLOBIN 13.7 g/dl (12.0-15.5); LYMPH # 3.2 10^3/uL (1.5-4.5); LYMPH % 27.9 % (24.0-44.0); MEAN CORPUSCULAR HEMOGLOBIN 28.1 pg (27.0-33.0); MEAN CORPUSCULAR HGB CONC 30.9 g/dl (32.0-36.5); MONO # 0.7 10^3/uL (0.0-0.8); MONO % 5.7 % (0.0-5.0); NEUTROPHILS # 7.2 10^3/uL (1.8-7.7); NEUTROPHILS % 62.7 % (36.0-66.0); PLATELET COUNT, AUTOMATED 311 10^3/uL (150-450); RED BLOOD COUNT 4.87 10^6/uL (4.00-5.40); WHITE BLOOD COUNT 11.5 10^3/uL (4.0-10.0)
[2019-01-08 20:06] LABS: BLOOD UREA NITROGEN 14 MG/DL (7-18); CARBON DIOXIDE LEVEL 31 MEQ/L (21-32); CHLORIDE LEVEL 108 MEQ/L (98-107); CK-MB VALUE MASS < 1.0 NG/ML (<3.6); CPK CREATINE PHOSPHOKINASE 48 U/L (26-192); CREATININE FOR GFR 1.09 MG/DL (0.55-1.30); GLOMERULAR FILTRATION RATE 54.1 (>45); GLUCOSE, FASTING 104 MG/DL (70-100); MB/CK RELATIVE INDEX 2.08 (< OR =4); NT-PRO BNP 58 PG/ML (<125); SODIUM LEVEL 144 MEQ/L (136-145); TROPONIN I < 0.02 NG/ML (< 0.10)
--- NOTE | 2019-01-08 20:20 | ECGEPIP ---
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
[2019-01-08] MEDS: IPRATROPIUM 0.5MG/ALBUTEROL 2.5MG INH SOL UD 3ML (DUONEB)(J7620) NEB PRN ×2 (21:01→22:14)
[2019-01-08] MEDS ORDERED: ONDANSETRON 4MG/2ML VIAL (J2405) IV ONE (22:15)
[2019-01-08] MEDS ORDERED: methylPREDNISolone INJ 125 MG/2 ML VIAL (J2930) IV ONE (22:45)
[2019-01-08] MEDS ORDERED: IPRATROPIUM 0.5MG/ALBUTEROL 2.5MG INH SOL UD 3ML (DUONEB)(J7620) NEB ONE (22:45)
[2019-01-08 23:20] VITALS: BP 141/70
[2019-01-08] MEDS ORDERED: CLAR10CA3 PO (23:28)
[2019-01-08] MEDS ORDERED: PRED20TA PO (23:28)
[2019-01-08] MEDS ORDERED: LEVA1TAB2 PO (23:30)
--- NOTE | 2019-01-09 07:59 | REP ---
Clinical: Shortness of breath. Technique: PA and lateral. Comparison: 12/16/2018. Findings: Mediastinum and cardiac silhouette are within normal limits and stable. No focal consolidation, effusion, or pneumothorax. Skeletal structures intact. Impression: No focal consolidation. Electronically Signed by Kai Nguyen MD 01/09/2019 07:51 A
== END 2019-01-08 23:53 | disposition home or self-care (01) ==
LOC: M ED 18:58
DX: J44.1 Chronic obstructive pulmonary disease with (acute) exacerbation (principal); E11.9 Type 2 diabetes mellitus without complications; I10 Essential (primary) hypertension; Z87.891 Personal history of nicotine dependence; Z82.49 Family history of ischemic heart disease and other diseases of the circulatory system; Z79.82 Long term (current) 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; Z79.899 Other long term (current) drug therapy; Z88.0 Allergy status to penicillin; Z88.2 Allergy status to sulfonamides; Z88.1 Allergy status to other antibiotic agents; Z88.8 Allergy status to other drugs, medicaments and biological substances
CPT/HCPCS: 71046; 80048; 82550; 82553; 82803; 83605; 83880; 84484; 85025; 93005; 93041; 94640; 96374; 96375; 99285; J2405; J2930

== ENCOUNTER 2019-02-02 19:51 | Emergency (ER) | payer MEDICARE, MEDICAID ==
[~2019-02-02] VITALS: Ht 170.2 cm; Wt 111.8 kg
[~2019-02-02 19:51] MED LIST changes: +LEVA1TAB2 PO; +RANI-356 PO; -RANI1TAB6 PO
[2019-02-02 21:06] LABS: BASO # 0.1 10^3/uL (0.0-0.2); BASO % 0.6 % (0.0-1.0); EOS # 0.3 10^3/uL (0.0-0.50); EOS % 2.3 % (0.0-3.0); HEMATOCRIT 41.1 % (36.0-47.0); LYMPH # 2.2 10^3/uL (1.5-4.5); MEAN CORPUSCULAR HGB CONC 31.6 g/dl (32.0-36.5); MEAN CORPUSCULAR VOLUME 88.6 fl (80.0-96.0); MONO # 0.7 10^3/uL (0.0-0.8); MONO % 6.5 % (0.0-5.0); NEUTROPHILS # 7.6 10^3/uL (1.8-7.7); NEUTROPHILS % 69.7 % (36.0-66.0); PLATELET COUNT, AUTOMATED 250 10^3/uL (150-450); RED BLOOD COUNT 4.64 10^6/uL (4.00-5.40); WHITE BLOOD COUNT 10.9 10^3/uL (4.0-10.0)
[2019-02-02 21:19] LABS: PROTHROMBIN TIME 12.9 SECONDS (11.8-14.0)
[2019-02-02 21:20] LABS: PARTIAL THROMBOPLASTIN TIME 20.7 SECONDS (25.0-38.4)
[2019-02-02 21:21] LABS: ALBUMIN 3.2 GM/DL (3.2-5.2); BILIRUBIN,DIRECT 0.2 MG/DL (0.0-0.2); BILIRUBIN,TOTAL 0.6 MG/DL (0.2-1.0); CALCIUM LEVEL 9.3 MG/DL (8.8-10.2); CREATININE FOR GFR 1.16 MG/DL (0.55-1.30); GLOMERULAR FILTRATION RATE 50.4 (>45); POTASSIUM SERUM 3.9 MEQ/L (3.5-5.1); TOTAL PROTEIN 6.4 GM/DL (6.4-8.2)
[2019-02-02] MEDS ORDERED: ISOVUE-370 76% 100ML VIAL (Q9967) As Ordered ONE (21:37)
[2019-02-02] MEDS ORDERED: MORPHINE 4 MG/ML 1ML VIAL/SYRINGE (J2270) IV ONE (22:45)
--- NOTE | 2019-02-02 22:54 | REPVR ---
EXAM: CT Abdomen and Pelvis With Contrast EXAM DATE/TIME: 02/02/19 (9:51pm) CLINICAL HISTORY: 63 year old female with LLQ pain TECHNIQUE: Imaging protocol: Computed tomography of the abdomen and pelvis with intravenous contrast. Radiation optimization: All CT scans at this facility use at least one of these dose optimization techniques: automated exposure control; mA and/or kV adjustment per patient size (includes targeted exams where dose is matched to clinical indication); or iterative reconstruction. Contrast material: Isovue 370 Contrast volume: 100 ml Contrast route: IV COMPARISON: CT ABDOMEN PELVIS of 10/08/18 FINDINGS: Liver: Normal. No solid mass. Gallbladder and bile ducts: Previous cholecystectomy. No ductal dilatation. Pancreas: Normal. No ductal dilatation. Spleen: Normal. No splenomegaly. Adrenals: Normal. No mass. Kidneys and ureters: No hydronephrosis. Small bilateral renal cysts. Stomach and bowel: Acute diverticulitis changes involving the distal left colon and the upper sigmoid (diseased segment measures approx. 8 cm in length). Additional diverticuli in the mid and lower sigmoid colon and in the left proximal left colon. No bowel obstruction. No abscess. Appendix: No evidence of appendicitis. Intraperitoneal space: Normal. No free air. No significant fluid collection. Vasculature: Normal. No abdominal aortic aneurysm. Lymph nodes: Normal. No enlarged lymph nodes. Bladder: Unremarkable as visualized. Reproductive: Unremarkable as visualized. Bones/joints: No acute fracture nor dislocation. Soft tissues: Unremarkable. IMPRESSION: Acute diverticulitis changes involving the distal left colon and the upper sigmoid (diseased bowel segment measures approx. 8 cm in length). Very similar findings noted in October 2018. No bowel obstruction. No abscess. No free air. Previous cholecystectomy. Electronically signed by: Talya Aponte On 02/02/2019 22:54:27 PM
[2019-02-02 23:00] VITALS: BP 122/71
[2019-02-02] MEDS ORDERED: CIPR-249 PO (23:13)
[2019-02-02] MEDS ORDERED: FLAG500T PO (23:13)
[2019-02-02] MEDS ORDERED: NORCO 5/325MG TABLET (BULK FOR ED) PO ONE (23:15)
[2019-02-02] MEDS ORDERED: CIPROFLOXACIN 400 MG in APPROPRIATE DILUENT 1 EA IV ONE (23:15)
[2019-02-02] MEDS ORDERED: metroNIDAZOLE 750 MG in APPROPRIATE DILUENT 1 EA IV ONE ×2 (23:15→23:21)
== END 2019-02-03 00:22 | disposition home or self-care (01) ==
LOC: M ED 19:51
DX: K57.92 Diverticulitis of intestine, part unspecified, without perforation or abscess without bleeding (principal); J44.9 Chronic obstructive pulmonary disease, unspecified; Z99.81 Dependence on supplemental oxygen; Z79.899 Other long term (current) drug therapy; Z79.82 Long term (current) 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; Z88.0 Allergy status to penicillin; Z88.1 Allergy status to other antibiotic agents; Z88.2 Allergy status to sulfonamides; Z88.8 Allergy status to other drugs, medicaments and biological substances; F17.210 Nicotine dependence, cigarettes, uncomplicated
CPT/HCPCS: 74177; 80048; 80076; 83690; 85025; 85610; 85730; 96374; 96375; 99285; J0744; J2270; Q9967

== ENCOUNTER 2019-03-10 21:03 | Emergency (ER) | payer MEDICARE, MEDICAID ==
[~2019-03-10] VITALS: Ht 170.2 cm; Wt 111.8 kg
[~2019-03-10 21:03] MED LIST changes: -AZIT500T2 PO; +AZIT500T5 PO; +FLAG500T PO
[2019-03-10 22:07] LABS: VENOUS BASE EXCESS 0.4 (-2.0-2.0); VENOUS HCO3 25.6 MEQ/L (23.0-27.0); VENOUS O2 SATURATION 97.6 % (60.0-80.0); VENOUS PARTIAL PRESSURE CO2 43.6 mmHg (38.0-50.0); VENOUS PARTIAL PRESSURE O2 100.8 mmHg (30.0-50.0); VENOUS PH 7.387 UNITS (7.330-7.430); VENOUS STANDARD HCO3 24.8 MEQ/L
[2019-03-10 22:08] LABS: BASO # 0.1 10^3/uL (0.0-0.2); BASO % 0.7 % (0.0-1.0); EOS # 0.4 10^3/uL (0.0-0.5); HEMATOCRIT 43.9 % (36.0-47.0); HEMOGLOBIN 13.4 g/dl (12.0-15.5); LYMPH # 3.2 10^3/uL (1.5-5.0); LYMPH % 26.2 % (24.0-44.0); MEAN CORPUSCULAR HEMOGLOBIN 26.2 pg (27.0-33.0); MEAN CORPUSCULAR HGB CONC 30.5 g/dl (32.0-36.5); MEAN CORPUSCULAR VOLUME 85.7 fl (80.0-96.0); MONO # 0.7 10^3/uL (0.0-0.8); MONO % 5.5 % (0.0-5.0); NEUTROPHILS # 7.7 10^3/uL (1.5-8.5); NEUTROPHILS % 63.7 % (36.0-66.0); PLATELET COUNT, AUTOMATED 284 10^3/uL (150-450); RED BLOOD COUNT 5.12 10^6/uL (4.00-5.40); WHITE BLOOD COUNT 12.2 10^3/uL (4.0-10.0)
[2019-03-10] MEDS ORDERED: methylPREDNISolone INJ 125 MG/2 ML VIAL (J2930) IV ONE (22:30)
[2019-03-10] MEDS: IPRATROPIUM 0.5MG/ALBUTEROL 2.5MG INH SOL UD 3ML (DUONEB)(J7620) NEB SCH ×3 (22:37→23:55)
[2019-03-10 22:38] LABS: ALBUMIN 3.3 GM/DL (3.2-5.2); ALT/SGPT 20 U/L (12-78); BILIRUBIN,DIRECT < 0.1 MG/DL (0.0-0.2); BILIRUBIN,TOTAL 0.2 MG/DL (0.2-1.0); CK-MB VALUE MASS < 1.0 NG/ML (<3.6); CPK CREATINE PHOSPHOKINASE 56 U/L (26-192); MB/CK RELATIVE INDEX 1.79 (< OR =4); NT-PRO BNP 71 PG/ML (<125); THYROID STIMULATING HORMONE 0.773 uIU/ML (0.358-3.740); THYROXINE (T4) 8.9 UG/DL (4.5-12.0); TOTAL PROTEIN 6.5 GM/DL (6.4-8.2); TROPONIN I < 0.02 NG/ML (< 0.10)
[2019-03-10 23:35] LABS: INFLUENZA A AMPLIFICATION NEGATIVE (NEGATIVE); INFLUENZA B AMPLIFICATION NEGATIVE (NEGATIVE)
[2019-03-10] MEDS ORDERED: ONDANSETRON 4MG/2ML VIAL (J2405) As Ordered ONE (23:40)
[2019-03-10] MEDS ORDERED: ONDANSETRON 4MG/2ML VIAL (J2405) IV ONE (23:45)
[2019-03-11] MEDS ORDERED: AZITHROMYCIN 250 MG TAB PO ONE (02:15)
[2019-03-11] MEDS ORDERED: AZIT-12 PO (02:16)
[2019-03-11] MEDS ORDERED: FLON1SPR NARES (02:16)
[2019-03-11] MEDS ORDERED: DELT1TAB PO (02:16)
[2019-03-11 02:21] VITALS: BP 142/83
--- NOTE | 2019-03-11 08:17 | ECGEPIP ---
[facility] - ED Test Date: 2019-03-10 Pat Name: ELIZABETH BRENNAN Department: Room: - Gender: Female Manager Contract: : 1955 Requested By: LUCY Iqbal Order Number: [id number] Reading MD: Mary Ann Shelton Measurements Intervals [place] Rate: 86 P: 81 TN: 166 QRS: 40 QRSD: 81 T: 57 QT: 371 QTc: 445 Interpretive Statements SINUS RHYTHM LOW QRS VOLTAGE IN PRECORDIAL LEADS NSTTW abnormalities similar to prior EKG 01/08/19 Electronically Signed on 03-11-2019 8:17:11 EDT by Mary Ann Shelton
--- NOTE | 2019-03-11 08:47 | REP ---
Portable chest, 10:06 p.m., single AP view with the patient upright: Comparison is 12/16/2018. Lung nava are clear. There is artifactual increased density in the lung bases from superimposed breast shadows. This is unchanged. Cardiac size is normal. The dariel, mediastinum, skeletal structures are unremarkable. Impression: Negative portable chest. No interval change. Electronically Signed by Herminio Batista MD 03/11/2019 08:38 A
== END 2019-03-11 02:37 | disposition home or self-care (01) ==
LOC: M ED 21:03
DX: J44.1 Chronic obstructive pulmonary disease with (acute) exacerbation (principal); Z87.891 Personal history of nicotine dependence; Z79.82 Long term (current) 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; Z79.899 Other long term (current) drug therapy; Z88.0 Allergy status to penicillin; Z88.2 Allergy status to sulfonamides; Z88.1 Allergy status to other antibiotic agents; Z88.8 Allergy status to other drugs, medicaments and biological substances
CPT/HCPCS: 36600; 71045; 80047; 80076; 82550; 82553; 82803; 83605; 83880; 84436; 84443; 84484; 85025; 87040; 87502; 93005; 93041; 96374; 96375; 99284; J2405; J2930

== ENCOUNTER 2019-03-23 22:54 | Emergency (ER) | payer MEDICARE, MEDICAID ==
[~2019-03-23] VITALS: Ht 170.2 cm; Wt 109.0 kg
[~2019-03-23 22:54] MED LIST changes: +AZIT-12 PO; +FLON1SPR NARES
[2019-03-24 00:04] LABS: BLOOD UREA NITROGEN 14 MG/DL (7-18); CALCIUM LEVEL 9.4 MG/DL (8.8-10.2); CARBON DIOXIDE LEVEL 29 MEQ/L (21-32); CHLORIDE LEVEL 105 MEQ/L (98-107); CK-MB VALUE MASS < 1.0 NG/ML (<3.6); CPK CREATINE PHOSPHOKINASE 51 U/L (26-192); CREATININE FOR GFR 1.13 MG/DL (0.55-1.30); GLOMERULAR FILTRATION RATE 51.9 (>45); GLUCOSE, FASTING 135 MG/DL (70-100); MB/CK RELATIVE INDEX 1.96 (< OR =4); NT-PRO BNP 115 PG/ML (<125); POTASSIUM SERUM 4.1 MEQ/L (3.5-5.1); SODIUM LEVEL 139 MEQ/L (136-145); TROPONIN I < 0.02 NG/ML (< 0.10)
[2019-03-24 00:11] LABS: BASO # 0.1 10^3/uL (0.0-0.2); BASO % 0.6 % (0.0-1.0); EOS # 0.3 10^3/uL (0.0-0.5); EOS % 1.8 % (0.0-3.0); HEMOGLOBIN 13.8 g/dl (12.0-15.5); LYMPH % 25.2 % (24.0-44.0); MEAN CORPUSCULAR HGB CONC 30.7 g/dl (32.0-36.5); MEAN CORPUSCULAR VOLUME 84.7 fl (80.0-96.0); MONO # 0.8 10^3/uL (0.0-0.8); MONO % 4.9 % (0.0-5.0); NEUTROPHILS # 10.5 10^3/uL (1.5-8.5); NEUTROPHILS % 66.4 % (36.0-66.0); PLATELET COUNT, AUTOMATED 300 10^3/uL (150-450); RED BLOOD COUNT 5.31 10^6/uL (4.00-5.40); WHITE BLOOD COUNT 15.9 10^3/uL (4.0-10.0)
[2019-03-24] MEDS: IPRATROPIUM 0.5MG/ALBUTEROL 2.5MG INH SOL UD 3ML (DUONEB)(J7620) NEB SCH ×3 (00:11→01:06)
[2019-03-24 00:14] VITALS: O2SAT 95
[2019-03-24] MEDS ORDERED: methylPREDNISolone INJ 125 MG/2 ML VIAL (J2930) IV ONE (00:15)
[2019-03-24] MEDS ORDERED: ONDANSETRON 4MG/2ML VIAL (J2405) IV ONE (00:15)
[2019-03-24] MEDS ORDERED: DELT1TAB PO (02:02)
[2019-03-24 02:13] VITALS: BP 135/62
--- NOTE | 2019-03-24 07:37 | ECGEPIP ---
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
--- NOTE | 2019-03-24 08:26 | REP ---
Portable chest x-ray: Single view. History: Dyspnea and cough. Comparison study: March 10, 2019. Findings: Oxygen delivery tubing is seen. There is oligemia in the upper lobes bilaterally unchanged consistent with emphysema/COPD. There is chronic pleuroparenchymal scarring in the left base. No acute infiltrate is seen. Heart is not enlarged. Impression: Evidence of COPD. No acute infiltrate. Electronically Signed by Edward Ramírez MD 03/24/2019 08:18 A
== END 2019-03-24 02:25 | disposition home or self-care (01) ==
LOC: M ED 22:54
DX: J44.1 Chronic obstructive pulmonary disease with (acute) exacerbation (principal); Z87.891 Personal history of nicotine dependence; Z79.82 Long term (current) 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; Z79.899 Other long term (current) drug therapy; Z88.0 Allergy status to penicillin; Z88.2 Allergy status to sulfonamides; Z88.1 Allergy status to other antibiotic agents; Z88.8 Allergy status to other drugs, medicaments and biological substances
CPT/HCPCS: 36415; 71045; 80048; 82550; 82553; 83880; 84484; 85025; 93005; 94640; 94760; 96374; 96375; 99284; J2405; J2930

== ENCOUNTER → 2019-04-13 | Outpatient (CLI) | payer MEDICARE, MEDICAID ==
[2019-04-13 16:03] LABS: HEMATOCRIT 44.1 % (36.0-47.0); HEMOGLOBIN 13.6 g/dl (12.0-15.5); MEAN CORPUSCULAR HEMOGLOBIN 26.3 pg (27.0-33.0); MEAN CORPUSCULAR HGB CONC 30.8 g/dl (32.0-36.5); MEAN CORPUSCULAR VOLUME 85.1 fl (80.0-96.0); PLATELET COUNT, AUTOMATED 298 10^3/uL (150-450); RED BLOOD COUNT 5.18 10^6/uL (4.00-5.40); WHITE BLOOD COUNT 10.8 10^3/uL (4.0-10.0)
[2019-04-13 16:09] LABS: ALBUMIN 3.4 GM/DL (3.2-5.2); BILIRUBIN,TOTAL 0.4 MG/DL (0.2-1.0); CREATININE FOR GFR 1.12 MG/DL (0.55-1.30); GLOMERULAR FILTRATION RATE 52.5 (>45); TOTAL PROTEIN 6.8 GM/DL (6.4-8.2)
== END ==
LOC: M LAB 15:05
PROVIDERS: ATTEND Family Medicine
DX: K92.1 Melena (principal)

== ENCOUNTER 2019-05-08 18:51 | Inpatient (IN) | payer MEDICARE, MEDICAID ==
[~2019-05-08] VITALS: Ht 167.6 cm; Wt 122.4 kg
[~2019-05-08 18:51] MED LIST changes: -RANI-356 PO; +RANI-397 PO
[2019-05-08] MEDS ORDERED: NS 1,000 ML IV SCH (19:19)
[2019-05-08] MEDS ORDERED: ONDANSETRON 4MG/2ML VIAL (J2405) IV ONE (19:30)
[2019-05-08 20:06] LABS: BASO # 0.1 10^3/uL (0.0-0.2); BASO % 0.5 % (0.0-1.0); EOS # 0.2 10^3/uL (0.0-0.5); EOS % 1.5 % (0.0-3.0); HEMOGLOBIN 12.9 g/dl (12.0-15.5); LYMPH # 1.8 10^3/uL (1.5-5.0); LYMPH % 16.6 % (24.0-44.0); MEAN CORPUSCULAR HEMOGLOBIN 25.9 pg (27.0-33.0); MEAN CORPUSCULAR HGB CONC 30.7 g/dl (32.0-36.5); MEAN CORPUSCULAR VOLUME 84.2 fl (80.0-96.0); MONO # 0.9 10^3/uL (0.0-0.8); MONO % 7.8 % (0.0-5.0); NEUTROPHILS % 72.8 % (36.0-66.0); PLATELET COUNT, AUTOMATED 279 10^3/uL (150-450); RED BLOOD COUNT 4.99 10^6/uL (4.00-5.40)
--- NOTE | 2019-05-08 20:14 | REP ---
Clinical: Shortness of breath . Comparison: 03/23/2019 . Findings: The mediastinum and cardiac silhouette are stable and within normal limits for portable technique. The lung nava demonstrate chronic COPD and interstitial changes without acute consolidation, effusion, or pneumothorax. Skeletal structures are intact. Impression: Chronic changes. No acute cardiopulmonary process appreciated. Electronically Signed by Kai Nguyen MD 05/08/2019 08:06 P
[2019-05-08 20:23] LABS: ALBUMIN 3.3 GM/DL (3.2-5.2); BILIRUBIN,DIRECT 0.1 MG/DL (0.0-0.2); BILIRUBIN,TOTAL 0.4 MG/DL (0.2-1.0); TOTAL PROTEIN 6.7 GM/DL (6.4-8.2)
[2019-05-08] MEDS ORDERED: IPRATROPIUM 0.5MG/ALBUTEROL 2.5MG INH SOL UD 3ML (DUONEB)(J7620) NEB ONE (20:45)
[2019-05-08] MEDS ORDERED: ISOVUE-370 76% 100ML VIAL (Q9967) As Ordered ONE (21:14)
--- NOTE | 2019-05-08 22:13 | REPVR ---
PROCEDURE INFORMATION: Exam: CT Abdomen And Pelvis With Contrast Exam date and time: 05/08/2019 9:21 PM Age: 63 years old Clinical history: Abdominal pain; Generalized; Prior surgery; Additional info: Diverticulitis TECHNIQUE: Imaging protocol: Computed tomography of the abdomen and pelvis with intravenous contrast. Radiation optimization: All CT scans at this facility use at least one of these dose optimization techniques: automated exposure control; mA and/or kV adjustment per patient size (includes targeted exams where dose is matched to clinical indication); or iterative reconstruction. Contrast material: ISOVUE 370; Contrast volume: 100 ml; Contrast route: IV; COMPARISON: CT ABD/PEL W/IV CONTRAST ONLY 2019-02-02 21:49 FINDINGS: Lungs: Mild mosaic attenuation in the lung bases. Liver: Enlarged low attenuating liver, evidence of hepatic steatosis. Gallbladder and bile ducts: Cholecystectomy clips in the right upper quadrant. Pancreas: Normal. No ductal dilation. Spleen: Normal. No splenomegaly. Adrenals: Normal. No mass. Kidneys and ureters: Left inferior renal pole 2.7 cm cyst. 1 cm right renal cyst. Stomach and bowel: Moderate acute sigmoid diverticulitis with intramural abscess on coronal image 62 series 202 measuring 2.3 x 1.5 cm and series 201 image 95 measuring 2.7 x 1.2 cm. Moderate diverticulosis coli. Appendix: No evidence of appendicitis. Intraperitoneal space: Several clips in the anterior abdomen. Trace free fluid. Vasculature: Mild to moderate aortic and iliac artery atherosclerotic calcification. Lymph nodes: Unremarkable. No enlarged lymph nodes. Bladder: Loss of fat planes between the sigmoid colon and bladder along its left superior margin with a 2.2 x 2 cm fluid collection with rim enhancement along the bladder wall and sigmoid colon, likely an abscess, uncertain if within the bladder wall, or just adjacent. Mild stranding adjacent to the bladder, correlate for cystitis with urinalysis. Reproductive: Hysterectomy. Bones/joints: Mild/moderate lumbar spondylosis. Mild lumbar spondylosis. Soft tissues: Unremarkable. IMPRESSION: 1. Moderate acute sigmoid diverticulitis with intramural abscess on coronal image 62 series 202 measuring 2.3 x 1.5 cm and series 201 image 95 measuring 2.7 x 1.2 cm. 2. Loss of fat planes between the sigmoid colon and bladder along its left superior margin with a 2.2 x 2 cm fluid collection with rim enhancement along the bladder wall and sigmoid colon, likely an abscess, uncertain if within the bladder wall, or just adjacent. 3. Mild stranding adjacent to the bladder, correlate for cystitis with urinalysis. 4. Left inferior renal pole 2.7 cm cyst. COMMENT: Consistent with the [employer]'s Incidental Findings Committee Report (J Am Zoltan Radiol 2010): Unless the patient's specific circumstances suggest otherwise, any liver lesion 0.5 cm or less, any cystic kidney lesion less than 1.0 cm, and/or any adrenal lesion 1.0 cm or less not otherwise characterized in this report as possessing suspicious or indeterminate imaging features is/are highly likely to be benign and do not require follow-up imaging or biopsy. Electronically signed by: Jonathon Barros On 05/08/2019 22:13:29 PM
[2019-05-08] MEDS ORDERED: CIPROFLOXACIN 400 MG in IV 1 EA IV ONE (22:30)
[2019-05-08] MEDS ORDERED: metroNIDAZOLE 500 MG in IV 1 EA IV ONE (22:30)
[2019-05-08] MEDS ORDERED: FLON1SPR (22:50)
[2019-05-08] MEDS ORDERED: EUCECRE8 TOP (22:50)
--- NOTE | 2019-05-08 22:50 | HPEPDOC ---
[facility] Medical History & Physical Date of Admission May 08, 2019 Date of Service: May 08, 2019 Primary Care Physician: JENELLE VALDEZ MD [facility] Attending Physician: MARILYN CARO MD History and Physical TIME OF SERVICE: 10:45 PM CHIEF COMPLAINT: Difficulty breathing HISTORY OF PRESENT ILLNESS: This is a 63 old female who presents with complaints of difficulties breathing associated with a cough productive of white sputum, runny nose, fevers and chills. She has been using her nebs more frequent it hasn't helped. She is also complaining of chronic left lower quadrant abdominal pain that is sharp, relapsing and remitting, and worse with movement; she thinks this due to divert iculitis caused by something she ate during [place]. REVIEW OF SYSTEMS: 12 point review of systems negative except as listed in HPI PAST MEDICAL/ SURGICAL HISTORY: Diverticulitis. COPD / Chronic oxygen-dependent respiratory failure. Grade 2 diastolic CHF/moderate pulmonary hypertension Chronic hypertension. Morbid obesity GERD JIGNESH on BiPAP. Periodic limb movement disorder. Status post appendectomy. Status post cholecystectomy Status post hysterectomy SOCIAL HISTORY: She reports that she quit smoking 6 days ago Drinks alcohol socially FAMILY HISTORY: CVA CAD ALLERGIES: Please see below. HOME MEDICATIONS: Please see below. PHYSICAL EXAMINATION: VITAL SIGNS: Please see below. GENERAL APPEARANCE: Obese, well-developed, not in apparent distress, does not appear toxic HEENT:Normocephalic, atraumatic Nasal cannula is in place. Lips acyanotic. CARDIOVASCULAR: She is tachycardic. There are no murmurs, rubs or gallops. Radial pulses are intact. There is no lower extremity edema LUNGS: She has decreased air entry bilaterally and expiratory wheezing. She has difficulties talking. To his without having to stop to take a breath. She has pursed lip breathing ABDOMEN: Bowel sounds are hypoactive. Abdomen is soft and tender with palpation of the left lower quadrant MUSCULOSKELETAL: Range of motion is intact in all 4 extremities INTEGUMENT:She is not flushed or jaundice NEUROLOGICAL: Cranial nerves II-12 are grossly intact. Speech is not dysarthric PSYCHIATRIC: Alert and oriented to person, place and time, able to understand and follow commands LABORATORY DATA: See below. IMAGING: Chest x-ray "Impression:Chronic changes. No acute cardiopulmonary process appreciated." CT abdomen and pelvis " IMPRESSION: 1. Moderate acute sigmoid diverticulitis with intramural abscess on coronal image 62 series 202 measuring 2.3 x 1.5 cm and series 201 image 95 measuring 2.7 x 1.2 cm. 2. Loss of fat planes between the sigmoid colon and bladder along its left superior margin with a 2.2 x 2 cm fluid collection with rim enhancement along the bladder wall and sigmoid colon, likely an abscess, uncertain if within the bladder wall, or just adjacent. 3. Mild stranding adjacent to the bladder, correlate for cystitis with urinalysis. 4. Left inferior renal pole 2.7 cm cyst. " MICROBIOLOGY: Please see below. ASSESSMENT: Ms. Schilling is a 69-year-old with a past medical history of COPD oxygen- dependent respiratory failure, diverticulosis, Grade 2 diastolic dysfunction, c hronic hypertension, obesity and JIGNESH who will be admitted for management of acute COPD and diverticulitis with abscess. PLAN: 1. Acute COPD / chronic oxygen-dependent respiratory failure Likely due to viral infection Chest x-ray unremarkable Plan: admit to PCU / supplemental O2 with Vapotherm/ continuous pulse oximetry / aspiration precautions / f/u VBG, d-dimer, respiratory panel/ Dunebs Q6H, levalbuterol Q4HP, Prednisone + PPI/ refer to [facility] for repeat PFTs and Pulmonary Rehab when ready for d/c 2. Diverticulitis with abscess. CT scan report reviewed. The only SIRS criteria she has is tachycardia She received ciprofloxacin in the ER Dr. Mckeon contacted Dr. Mata Plan: Continue with antibiotics/follow-up with general surgery in the morning 3. Cystitis The diagnosis is based on the complaint of abdominal pain. CT findings and UA findings consistent with cystitis. Plan: Continue ciprofloxacin. Follow-up urine culture 4. Grade 2 diastolic CHF 2/2 Chronic hypertension. Plan: Resume Lasix. 5. JIGNESH. Plan: Continue home BiPAP 6. GERD Plan: Hold ranitidine while taking PPI 7. Morbid Obesity BMI 40.2 Complicate's care. She also has sleep apnea Based on her A1c in November she may have diabetes. Currently she is not taking any anti-glycemic agents Plan: Bariatric mattress/follow up with PCP for dietitian consult/follow-up A1c Accu-Cheks, sliding scale insulin with hypoglycemia protocol DVT prophylaxis with heparin Disposition likely home after more than 2 midnight stay Vital Signs Vital Signs Date Time Temp Pulse Resp B/P (MAP) Pulse Ox O2 Delivery O2 Flow Rate FiO2 05/08/19 22:06 108 20 90 Nasal Cannula 2.0 05/08/19 22:03 126/68 (87) 05/08/19 18:59 98.7 Laboratory Data Labs 24H Laboratory Tests 2 05/08/19 19:46: Immature Granulocyte % (Auto) 0.8, Neutrophils (%) (Auto) 72.8H, Lymphocytes (%) (Auto) 16.6L, Monocytes (%) (Auto) 7.8H, Eosinophils (%) (Auto) 1.5, Basophils (%) (Auto) 0.5, Neutrophils # (Auto) 8.0, Lymphocytes # (Auto) 1.8, Monocytes # (Auto) 0.9H, Eosinophils # (Auto) 0.2, Basophils # (Auto) 0.1, Nucleated Red B lood Cells % (auto) 0.0, Lactic Acid Level 1.0, Total Bilirubin 0.4, Direct Bilirubin 0.1, Aspartate Amino Transf (AST/SGOT) 22, Alanine Aminotransferase (ALT/SGPT) 38, Alkaline Phosphatase 87, Total Protein 6.7, Albumin 3.3, Albumin/Globulin Ratio 0.97L, Lipase 113 05/08/19 19:53: POC Glucose (Misc Panel) 112H, POC Sodium (Misc Panel) 138, POC Potassium (Misc Panel) 3.8, POC Chloride (Misc Panel) 105, POC Total CO2 (Misc Panel) 22.0L, POC Blood Urea Nitrogen (Misc Panel 9, POC Ionized Calcium (Misc Panel) 4.8, POC Creatinine (Misc Panel) 1.1, POC Hematocrit (Misc Panel) 40.0 05/08/19 20:01: Urine Color GUALBERTO, Urine Appearance CLOUDYH, Urine pH 6.0, Urine Specific [place] 1.025, Urine Protein 1+H, Urine Glucose (UA) NEGATIVE, Urine Ketones NEGATIVE, Urine Blood NEGATIVE, Urine Nitrite POSITIVEH, Urine Bilirubin NEGATIVE, Urine Urobilinogen 2.0H, Urine Leukocyte Esterase 3+H, Urine WBC (Auto) 160H, Urine RBC (Auto) 2, Urine Hyaline Casts (Auto) 0, Urine Bacteria (Auto) 3+H, Urine Squamous Epithelial Cells 6, Urine Mucus (Auto) SMALL, Urine Sperm (Auto) CBC/BMP Laboratory Tests 05/08/19 19:46 Microbiology Microbiology 05/08/19 Blood Culture, Received Pending 05/08/19 Urine Culture, Received Pending 05/08/19 Blood Culture, Received Pending Home Medications Scheduled Aspirin (Aspirin EC) 81 Mg Tabec, 81 MG PO DAILY Budesonide/Formoterol (Symbicort 160-4.5 Mcg Inhaler) 60 Puff/Inhaler Aers, 2 PUFF INH BID Fluticasone Propionate (Flonase Allergy Relief) 9.9 Ml [place].susp, 2 SPRAYS NA DAILY Furosemide (Furosemide) 40 Mg Tab, 40 MG PO DAILY Lanolin Alcohol/Mo/W.pet/[place] (Eucerin Creme) 454 Gm Cream..g., 1 DOSE TOP QHS APPLIES TO ELBOWS AND COVERS THEM TO REMAIN ON OVERNIGHT Nicotine (Nicotine Patch) 21 Mg Patch.td24, 1 PATCH TOP DAILY APPLIES TO ARMS OR CHEST Ranitidine HCl (Ranitidine HCl) 300 Mg Tab, 1 TAB PO DAILY Scheduled PRN Albuterol Sulf (Albuterol Sulfate) 2.5 Mg/3 Ml Nebu, 2.5 MG INH Q4H PRN for SHORTNESS OF BREATH Albuterol Sulfate (Proair Hfa) 108 Mcg/Act Aer, 2 PUFF INH Q4H PRN for SHORTNESS OF BREATH Tramadol HCl (Tramadol HCl) 50 Mg Tablet, 50 MG PO QID PRN for PAIN Allergies Coded Allergies: Penicillins (Verified Allergy, Intermediate, HIVES, 05/08/19) pt has had cefdinir in the past Quinolones (Verified Allergy, Intermediate, RASH, 05/08/19) metronidazole (Verified Allergy, Mild, itching, 05/08/19) Sulfa (Sulfonamide Antibiotics) (Verified Adverse Reaction, Intermediate, VOMITING, BLISTERS, TACHYCARDIA, 05/08/19) Tetracyclines (Verified Adverse Reaction, Intermediate, TACHYCARDIA, BLISTERS, HIVES, 05/08/19) aripiprazole (Verified Adverse Reaction, Intermediate, TACHYCARDIA, 05/08/19) venlafaxine (Verified Adverse Reaction, Mild, INCREASED HR, 05/08/19) Macrolide Antibiotics (Verified Adverse Reaction, Unknown, ITCHY, HIVES, 05/08/19) HAS TAKEN AZITHROMYCIN W/O PROBLEM A-FIB/CHADSVASC A-FIB History Current/History of A-Fib/PAF?: No Current PO Anticoag Therapy: No MARILYN CARO MD May 08, 2019 22:50
[2019-05-08] MEDS ORDERED: methylPREDNISolone INJ 125 MG/2 ML VIAL (J2930) IV STA (23:06)
[2019-05-09] VITALS (8 sets, daily range): BP systolic 120–161; BP diastolic 58–94
[2019-05-09] MEDS: NS 1,000 ML IV SCH ×2 (00:29→13:10)
[2019-05-09] MEDS: PANTOPRAZOLE 40MG TAB (PROTONIX) PO SCH ×2 (00:35→08:44)
[2019-05-09] MEDS: IPRATROPIUM 0.5MG/ALBUTEROL 2.5MG INH SOL UD 3ML (DUONEB)(J7620) NEB SCH ×4 (01:31→19:19)
[2019-05-09] MEDS: traMADol 50 MG TAB PO PRN (01:55)
[2019-05-09] MEDS ORDERED: DEXTROSE 50% 50 ML SYRINGE IV PRN (04:30)
[2019-05-09] MEDS ORDERED: GLUCOSE 4 GM CHEW TABLET PO PRN (04:30)
[2019-05-09] MEDS ORDERED: GLUCAGON FOR INJ 1 MG VIAL (J1610) SC PRN (04:30)
[2019-05-09] MEDS ORDERED: LEVALBUTEROL HFA 45MCG/ACT 15 GM INHALER INH PRN (04:30)
[2019-05-09 05:46] LABS: VENOUS BASE EXCESS -5.5 (-2.0-2.0); VENOUS HCO3 19.7 MEQ/L (23.0-27.0); VENOUS O2 SATURATION 94.3 % (60.0-80.0); VENOUS PARTIAL PRESSURE CO2 37.6 mmHg (38.0-50.0); VENOUS PH 7.337 UNITS (7.330-7.430); VENOUS STANDARD HCO3 19.9 MEQ/L; VENOUS TOTAL CO2 20.8 MEQ/L (24.0-28.0)
[2019-05-09 05:50] LABS: HEMATOCRIT 39.2 % (36.0-47.0); HEMOGLOBIN 12.4 g/dl (12.0-15.5); MEAN CORPUSCULAR HEMOGLOBIN 26.6 pg (27.0-33.0); MEAN CORPUSCULAR HGB CONC 31.6 g/dl (32.0-36.5); MEAN CORPUSCULAR VOLUME 84.1 fl (80.0-96.0); PLATELET COUNT, AUTOMATED 249 10^3/uL (150-450); RED BLOOD COUNT 4.66 10^6/uL (4.00-5.40); WHITE BLOOD COUNT 8.5 10^3/uL (4.0-10.0)
[2019-05-09 06:11] LABS: CALCIUM LEVEL 8.5 MG/DL (8.8-10.2); CREATININE FOR GFR 1.09 MG/DL (0.55-1.30); GLOMERULAR FILTRATION RATE 54.1 (>45); POTASSIUM SERUM 4.4 MEQ/L (3.5-5.1)
--- NOTE | 2019-05-09 06:14 | CR.PDOC ---
General Surgery Consultation Date of Consultation 05/09/19 History and Physical CONSULT REPORT FOR: Dr. Bejarano from hospitalist service REASON FOR CONSULTATION: abdominal pain, diverticulitis with abscess HISTORY OF PRESENT ILLNESS: PAST MEDICAL HISTORY: 1. morbid obesity with BMI 40.2 2. COPD 3. diverticulitis PAST SURGICAL HISTORY: INCLUDES: 1. . PREVIOUS ANESTHESIA REACTIONS: ALLERGIES: Please see below. FAMILY HISTORY: . HOME MEDICATIONS: Please see below. REVIEW OF SYSTEMS: GENERAL: [Denies chills, reports weight gain, reports feeling febrile yesterday]. HEENT: [Denies blurred vision and double vision. Denies ear symptoms. Denies hoarseness]. NECK: Denies any neck pain]. CARDIOVASCULAR: [Denies chest pain and palpitations]. MUSCULOSKELETAL: [Denies arthralgias, back pain and thrombophlebitis]. SKIN: [Denies rash]. NEUROLOGIC: [Denies headache, stroke and transient ischemic attack]. PSYCHIATRIC: [Denies anxiety and depression]. ENDOCRINE: [Denies thyroid disease]. HEMATOLOGY/ONCOLOGY: [Denies bleeding or clotting disorder]. HEART: [Denies any chest pains, palpitations, paroxysmal dyspnea, orthopnea]. PULMONARY: [Denies chronic cough, dyspnea and wheezing]. GASTROINTESTINAL: [Denies rectal bleeding, family history of colon cancer, constipation, diarrhea, dysphagia, heartburn and jaundice]. GENITOURINARY: [Denies dysuria, frequency, hematuria and nocturia]. ENDOCRINE: [Denies polydipsia, polyphagia, polyuria, heat or cold intolerance]. INFECTIOUS: [Denies any recent upper respiratory tract infection, UTI, need for use of antibiotics]. NUTRITION: [Reports good appetite]. PHYSICAL EXAMINATION: VITALS SIGNS: Please see below. GENERAL APPEARANCE:[Patient seen, laying in bed, awake, alert, and oriented. Comfortable, in no acute distress]. SKIN: [Warm and moist]. HEENT: [Normocephalic, atraumatic. [place] palpebral conjunctiva, anicteric sclerae. Lips and mucosa appear moist]. NECK: [Supple, no thyromegaly. No obvious jugular venous distention]. LUNGS: [Clear to auscultation bilaterally. No wheezing appreciated]. HEART: [No chest wall abnormalities. Regular rate and rhythm with no murmurs appreciated]. ABDOMEN: Abdomen is , soft, . [No hepatosplenomegaly. No umbilical or groin herniations, nondistended. No noticeable rebound or guarding. No grimacing with palpation. No rebound tenderness. No masses appreciated]. EXTREMITIES: [Extremities have no deformities. No edema identified] ANCILLARIES: . LABORATORY DATA: Please see below. IMAGING STUDIES: CT abdomen and pelvis 1. Moderate acute sigmoid diverticulitis with intramural abscess on coronal image 62 series 202 measuring 2.3 x 1.5 cm and series 201 image 95 measuring 2.7 x 1.2 cm. 2. Loss of fat planes between the sigmoid colon and bladder along its left superior margin with a 2.2 x 2 cm fluid collection with rim enhancement along the bladder wall and sigmoid colon, likely an abscess, uncertain if within the bladder wall, or just adjacent. 3. Mild stranding adjacent to the bladder, correlate for cystitis with urinalysis. 4. Left inferior renal pole 2.7 cm cyst. IMPRESSION AND PLAN: diverticulitis with pericolic abscess ([place] II) antibiotics percutaneous drainage of abscess Vital Signs Vital Signs Date Time Temp Pulse Resp B/P (MAP) Pulse Ox O2 Delivery O2 Flow Rate FiO2 05/09/19 04:00 97.0 97 16 121/61 (81) 91 Nasal Cannula 2.0 I&Os I&O- Last 24 Hours up to 6 AM 05/09/19 06:00 Intake Total 300 ml Output Total 500 ml Balance -200 ml Laboratory Data Labs 24H Laboratory Tests 2 05/08/19 19:46: Immature Granulocyte % (Auto) 0.8, Neutrophils (%) (Auto) 72.8H, Lymphocytes (%) (Auto) 16.6L, Monocytes (%) (Auto) 7.8H, Eosinophils (%) (Auto) 1.5, Basophils (%) (Auto) 0.5, Neutrophils # (Auto) 8.0, Lymphocytes # (Auto) 1.8, Monocytes # (Auto) 0.9H, Eosinophils # (Auto) 0.2, Basophils # (Auto) 0.1, Nucleated Red Blood Cells % (auto) 0.0, Lactic Acid Level 1.0, Total Bilirubin 0.4, Direct Bilirubin 0.1, Aspartate Amino Transf (AST/SGOT) 22, Alanine Aminotransferase (ALT/SGPT) 38, Alkaline Phosphatase 87, Total Protein 6.7, Albumin 3.3, Albumin/Globulin Ratio 0.97L, Lipase 113 05/08/19 19:53: POC Glucose (Misc Panel) 112H, POC Sodium (Misc Panel) 138, POC Potassium (Misc Panel) 3.8, POC Chloride (Misc Panel) 105, POC Total CO2 (Misc Panel) 22.0L, POC Blood Urea Nitrogen (Misc Panel 9, POC Ionized Calcium (Misc Panel) 4.8, POC Creatinine (Misc Panel) 1.1, POC Hematocrit (Misc Panel) 40.0 05/08/19 20:01: Urine Color GUALBERTO, Urine Appearance CLOUDYH, Urine pH 6.0, Urine Specific Gravit y 1.025, Urine Protein 1+H, Urine Glucose (UA) NEGATIVE, Urine Ketones NEGATIVE, Urine Blood NEGATIVE, Urine Nitrite POSITIVEH, Urine Bilirubin NEGATIVE, Urine Urobilinogen 2.0H, Urine Leukocyte Esterase 3+H, Urine WBC (Auto) 160H, Urine RBC (Auto) 2, Urine Hyaline Casts (Auto) 0, Urine Bacteria (Auto) 3+H, Urine Squamous Epithelial Cells 6, Urine Mucus (Auto) SMALL, Urine Sperm (Auto) 05/09/19 05:35: Nucleated Red Blood Cells % (auto) 0.0, Blood Gas Bicarbonate Standard 19.9, Venous Blood pH 7.337, Venous Blood Partial Pressure CO2 37.6L, Venous Blood Partial Pressure O2 75.0H, Venous Blood Total Carbon Dioxide 20.8L, Venous Blood HCO3 19.7L, Venous Blood Oxygen Saturation 94.3H, Venous Blood Base Excess - 5.5L, Anion Gap 5L, Glomerular Filtration Rate 54.1, Calcium Level 8.5L CBC/BMP Laboratory Tests 05/08/19 19:46 05/09/19 05:35 Microbiology Microbiology 05/08/19 Blood Culture, Received Pending 05/08/19 Urine Culture, Received Pending 05/08/19 Blood Culture, Received Pending Home Medications Scheduled Aspirin (Aspirin EC) 81 Mg Tabec, 81 MG PO DAILY, (Reported) Budesonide/Formoterol (Symbicort 160-4.5 Mcg Inhaler) 60 Puff/Inhaler Aers, 2 PUFF INH BID, (Reported) Fluticasone Propionate (Flonase Allergy Relief) 9.9 Ml [place].susp, 2 SPRAYS NA DAILY, (Reported) Furosemide (Furosemide) 40 Mg Tab, 40 MG PO DAILY, (Reported) Lanolin Alcohol/Mo/W.pet/[place] (Eucerin Creme) 454 Gm Cream..g., 1 DOSE TOP QHS, (Reported) APPLIES TO ELBOWS AND COVERS THEM TO REMAIN ON OVERNIGHT Nicotine (Nicotine Patch) 21 Mg Patch.td24, 1 PATCH TOP DAILY, (Reported) APPLIES TO ARMS OR CHEST Ranitidine HCl (Ranitidine HCl) 300 Mg Tab, 1 TAB PO DAILY, (Reported) Scheduled PRN Albuterol Sulf (Albuterol Sulfate) 2.5 Mg/3 Ml Nebu, 2.5 MG INH Q4H PRN for SHORTNESS OF BREATH, (Reported) Albuterol Sulfate (Proair Hfa) 108 Mcg/Act Aer, 2 PUFF INH Q4H PRN for SHORTNESS OF BREATH, (Reported) Tramadol HCl (Tramadol HCl) 50 Mg Tablet, 50 MG PO QID PRN for PAIN, (Reported) Allergies Coded Allergies: Penicillins (Verified Allergy, Intermediate, HIVES, 05/08/19) pt has had cefdinir in the past Quinolones (Verified Allergy, Intermediate, RASH, 05/08/19) metronidazole (Verified Allergy, Mild, itching, 05/08/19) Sulfa (Sulfonamide Antibiotics) (Verified Adverse Reaction, Intermediate, VOMITING, BLISTERS, TACHYCARDIA, 05/08/19) Tetracyclines (Verified Adverse Reaction, Intermediate, TACHYCARDIA, BLISTERS, HIVES, 05/08/19) aripiprazole (Verified Adverse Reaction, Intermediate, TACHYCARDIA, 05/08/19) venlafaxine (Verified Adverse Reaction, Mild, INCREASED HR, 05/08/19) Macrolide Antibiotics (Verified Adverse Reaction, Unknown, ITCHY, HIVES, 05/08/19) HAS TAKEN AZITHROMYCIN W/O PROBLEM KELLI STOLL MD May 09, 2019 06:14
[2019-05-09] MEDS: HEPARIN SOD (PORCINE) 5000 UNITS/ML VIAL SQ SCH ×3 (06:34→20:12)
[2019-05-09 06:35] LABS: HEMOGLOBIN A1c 6.9 %
[2019-05-09] MEDS: NICOTINE 21MG/24HR 1 EA TRANSDERMAL TOP SCH (08:42)
[2019-05-09] MEDS: HumaLOG INSULIN (NovoLOG) PER UNIT SC SCH ×4 (08:43→20:04)
[2019-05-09] MEDS: ASPIRIN 81 MG ENTERIC TAB PO SCH (08:43)
[2019-05-09] MEDS: FLUTICASONE PROP 0.05% NASAL SPRAY 16 GM (FLONASE) SCH (08:43)
[2019-05-09] MEDS: FUROSEMIDE 40 MG TAB PO SCH (08:43)
[2019-05-09] MEDS: CIPROFLOXACIN 400 MG in IV 1 EA IV SCH ×2 (08:44→20:12)
[2019-05-09] MEDS: predniSONE 20 MG TAB PO SCH (08:44)
--- NOTE | 2019-05-09 11:45 | IPNPDOC ---
Text Note Date of Service The patient was seen on 05/09/19. NOTE SUBJECTIVE: Patient is seen at bedside in PCU. She states that she is feeling much better this morning, she still does have some left lower quadrant abdominal pain, it continues to relapse and remit. She is able to breathe better, and thinks that the prednisone really helped her. She is compliant with using her breathing treatments. She denies fevers, but says that she did have some chills last night. OBJECTIVE: Vitals: see below General: Obese, well-developed, no acute distress. Resting comfortably HEENT: Normocephalic, atraumatic. Nasal cannula in place. Mucous membranes are moist. Heart: Regular rate and rhythm; no murmurs, rubs, or gallops. Lungs: Breathing is unlabored. She has decreased air entry bilaterally and diffuse expiratory wheezing. She breathes through pursed lips and does use some accessory muscles. Abdomen: Bowel sounds are hypoactive. Abdomen is soft and tender with palpation of the left lower quadrant Extremities: No lower extremity edema bilaterally, no clubbing or cyanosis. Skin: No rashes, jaundice, or skin lesions Neuro: Cranial nerves II-XII are grossly intact. Strength 5 out of 5 bilaterally, sensation intact throughout Psych: Answers questions appropriately, affect full LABORATORY DATA: See below. IMAGING: Chest x-ray 05/08/19: Chronic changes. No acute cardiopulmonary process appreciated. CT abdomen and pelvis 05/08/19: 1. Moderate acute sigmoid diverticulitis with intramural abscess on coronal image 62 series 202 measuring 2.3 x 1.5 cm and series 201 image 95 measuring 2.7 x 1.2 cm. 2. Loss of fat planes between the sigmoid colon and bladder along its left superior margin with a 2.2 x 2 cm fluid collection with rim enhancement along the bladder wall and sigmoid colon, likely an abscess, uncertain if within the bladder wall, or just adjacent. 3. Mild stranding adjacent to the bladder, correlate for cystitis with urinalysis. 4. Left inferior renal pole 2.7 cm cyst. MICROBIOLOGY: BC x 2 and UC pending ASSESSMENT: Ms. Schilling is a 69-year-old female with past medical history of COPD oxygen- dependent respiratory failure, diverticulosis, Grade 2 diastolic dysfunction, chronic hypertension, obesity and JIGNESH who will be admitted for management of acute COPD exacerbation and diverticulitis with abscess. PLAN: 1. Acute COPD exacerbation/ chronic oxygen-dependent respiratory failure. Chest x-ray unremarkable. Continue pulmonary toilet and O2 orders. Continue Prednisone (Day #2/5). She follows with pulmonology in [place]. 2. Diverticulitis with abscess. Dr. Mata has been consulted, appreciate his help. Will be going for percutaneous drainage in this afternoon. Day #2 Ciprofloxacin (Patient allergic to multiple antibiotics). Will adjust as needed when cultures/sensitivities come back. Will adjust antibiotics to include coverage for anaerobic organisms. 3. Cystitis. CT findings and UA findings consistent with cystitis. Continue ciprofloxacin. Follow-up urine culture. 4. Grade 2 diastolic CHF 2/2 Chronic hypertension. Continue Lasix. 5. JIGNESH. Continue home BiPAP 6. GERD. Hold ranitidine while taking PPI 7. Morbid Obesity. BMI 40.2 Complicate's care. Based on her A1c in November She may have diabetes. Currently she is not taking any anti-glycemic agents, follow up with PCP for dietitian consult. Sliding scale insulin with hypoglycemia protocol DVT prophylaxis with heparin Disposition pending abscess drainage and appropriate antibiotic therapy VS,Fishbone, I+O VS, Fishbone, I+O Laboratory Tests 05/08/19 19:46 05/09/19 05:35 Vital Signs Date Time Temp Pulse Resp B/P (MAP) Pulse Ox O2 Delivery O2 Flow Rate FiO2 05/09/19 08:00 96.9 92 20 124/70 (88) 91 Nasal Cannula 2.0 I&O- Last 24 Hours up to 6 AM 05/09/19 05:59 Intake Total 300 ml Output Total 500 ml Balance -200 ml GME ATTESTATION GME ATTESTATION My faculty preceptor for this patient encounter was physically present during the encounter and was fully available. All aspects of the patient interview, examination, medical decision making process, and medical care plan development were reviewed and approved by the faculty preceptor. The faculty preceptor is aware and concurs with the plan as stated in the body of this note and will attest to such by his/her cosignature. ATTENDING NOTE I, Justin Hester, have independently examined this patient and performed my own physical exam, as well as reviewed the documentation and edited where necessary. I have discussed in detail with the resident / student the findings and plan of treatment as documented by the resident / student and edited their note. I agree with their findings and treatment plan and have edited their documentation. I will continue to follow the patient during this hospital stay. HELENA GALLEGOS D.O. May 09, 2019 11:45 JUSTIN HESTER MD May 09, 2019 14:03
[2019-05-09] MEDS ORDERED: LIDOCAINE 1% MDV 20ML VIAL As Ordered ONE (13:30)
--- NOTE | 2019-05-09 16:10 | REP ---
CT-GUIDED PELVIC ABSCESS DRAIN The procedure was performed under the direct supervision of Dr. Hernandez. The patient has a history of a 2.2 x 2 cm fluid collection between the sigmoid colon and the bladder, along its left superior margin, seen on a previous CT scan dated 05/08/2019. The risks and benefits of the procedure were explained to the patient and informed consent was obtained. The pelvic abscess was localized using CT guidance. The skin was prepped and draped in a sterile fashion. 1% lidocaine was used as a local anesthetic. Using CT guidance a 21-gauge needle was inserted and advanced into the abscess. Approximately 2 ml of beige proteinaceous fluid was withdrawn and sent to the lab for analysis. The needle was then removed. The patient tolerated the procedure well and there were no immediate complications. After the appropriate amount of monitored convalescence the patient was discharged from the department. Electronically Signed by JOEL Forbes 05/09/2019 04:00 P Electronically Signed by Herminio Hernandez MD 05/09/2019 04:01 P
[2019-05-10] MEDS: IPRATROPIUM 0.5MG/ALBUTEROL 2.5MG INH SOL UD 3ML (DUONEB)(J7620) NEB SCH ×4 (02:37→19:41)
[2019-05-10 04:00] VITALS: BP 138/74
[2019-05-10] MEDS: HEPARIN SOD (PORCINE) 5000 UNITS/ML VIAL SQ SCH ×3 (05:55→21:05)
[2019-05-10] MEDS ORDERED: metroNIDAZOLE 750 MG in IV 1 EA IV SCH (07:45)
[2019-05-10 08:00] VITALS: BP 125/70
[2019-05-10] MEDS ORDERED: cefTRIAXone SOD 1 GM in D5W MINI-BAG PLUS 50 ML IV SCH (08:00)
[2019-05-10] MEDS ORDERED: ONDANSETRON 4 MG ORAL DISINTEGRATING TAB (Q0162 PER 1MG) SL SCH (08:00)
[2019-05-10 08:27] LABS: HEMATOCRIT 40.6 % (36.0-47.0); HEMOGLOBIN 12.5 g/dl (12.0-15.5); MEAN CORPUSCULAR HEMOGLOBIN 26.2 pg (27.0-33.0); MEAN CORPUSCULAR HGB CONC 30.8 g/dl (32.0-36.5); MEAN CORPUSCULAR VOLUME 85.1 fl (80.0-96.0); PLATELET COUNT, AUTOMATED 315 10^3/uL (150-450); RED BLOOD COUNT 4.77 10^6/uL (4.00-5.40); WHITE BLOOD COUNT 13.4 10^3/uL (4.0-10.0)
[2019-05-10] MEDS ORDERED: PROAAER10 INH (08:35)
[2019-05-10] MEDS ORDERED: SYMB16INH INH (08:35)
[2019-05-10 08:53] LABS: CALCIUM LEVEL 9.4 MG/DL (8.8-10.2); CREATININE FOR GFR 1.17 MG/DL (0.55-1.30); GLOMERULAR FILTRATION RATE 49.9 (>45); POTASSIUM SERUM 3.7 MEQ/L (3.5-5.1)
[2019-05-10] MEDS: FLUTICASONE PROP 0.05% NASAL SPRAY 16 GM (FLONASE) SCH (09:10)
[2019-05-10] MEDS: NICOTINE 21MG/24HR 1 EA TRANSDERMAL TOP SCH (09:11)
[2019-05-10] MEDS: PANTOPRAZOLE 40MG TAB (PROTONIX) PO SCH (09:11)
[2019-05-10] MEDS: predniSONE 20 MG TAB PO SCH (09:11)
[2019-05-10] MEDS: ASPIRIN 81 MG ENTERIC TAB PO SCH (09:11)
[2019-05-10] MEDS: HumaLOG INSULIN (NovoLOG) PER UNIT SC SCH ×4 (09:11→21:00)
[2019-05-10] MEDS: FUROSEMIDE 40 MG TAB PO SCH (09:12)
[2019-05-10] MEDS: guaiFENesin ER 600 MG TAB PO SCH ×2 (09:12→21:05)
[2019-05-10] MEDS ORDERED: ONDANSETRON 4MG/2ML VIAL (J2405) IV PRN (10:00)
[2019-05-10] MEDS: metroNIDAZOLE 500 MG in IV 1 EA IV SCH ×2 (11:07→18:03)
--- NOTE | 2019-05-10 11:36 | IPNPDOC ---
Text Note Date of Service The patient was seen on 05/10/19. NOTE SUBJECTIVE: Patient is seen at bedside in PCU. She states that she is feeling much better this morning, her abdominal pain has improved. She states they took quite a bit of pus out of her abscess yesterday. She is still somewhat nauseous. She is breathing better, her aide is bringing her BiPAP in later today. Is requesting chest physical therapy as well as Mucinex to thin out her secretions. She is compliant with using her breathing treatments. She denies fevers, but says that she did have some chills last night. OBJECTIVE: Vitals: see below General: Obese, well-developed, no acute distress. Resting comfortably HEENT: Normocephalic, atraumatic. Nasal cannula in place. Mucous membranes are moist. Heart: Regular rate and rhythm; no murmurs, rubs, or gallops. Lungs: Breathing is unlabored. She has decreased air entry bilaterally and diffuse expiratory wheezing. She breathes through pursed lips and does use some accessory muscles. Abdomen: Bowel sounds are hypoactive. Abdomen is soft and tender with palpation of the left lower quadrant. Bandage in the left lower quadrant from her percutaneous drainage, dressing is dry and intact. Extremities: No lower extremity edema bilaterally, no clubbing or cyanosis. Skin: No rashes, jaundice, or skin lesions Neuro: Cranial nerves II-XII are grossly intact. Strength 5 out of 5 bilaterally, sensation intact throughout Psych: Answers questions appropriately, affect full LABORATORY DATA: See below. IMAGING: Chest x-ray 05/08/19: Chronic changes. No acute cardiopulmonary process appreciated. CT abdomen and pelvis 05/08/19: 1. Moderate acute sigmoid diverticulitis with intramural abscess on coronal image 62 series 202 measuring 2.3 x 1.5 cm and series 201 image 95 measuring 2.7 x 1.2 cm. 2. Loss of fat planes between the sigmoid colon and bladder along its left superior margin with a 2.2 x 2 cm fluid collection with rim enhancement along the bladder wall and sigmoid colon, likely an abscess, uncertain if within the bladder wall, or just adjacent. 3. Mild stranding adjacent to the bladder, correlate for cystitis with urinalysis. 4. Left inferior renal pole 2.7 cm cyst. MICROBIOLOGY: BC x 2 and UC pending ASSESSMENT: Ms. Schilling is a 69-year-old female with past medical history of COPD oxygen-dependent respiratory failure, diverticulosis, Grade 2 diastolic dysfunction, chronic hypertension, obesity and JIGNESH who will be admitted for management of acute COPD exacerbation and diverticulitis with abscess. PLAN: 1. Acute COPD exacerbation/ chronic oxygen-dependent respiratory failure. Chest x-ray unremarkable. Continue pulmonary toilet and O2 orders. Continue Prednisone (Day #3/5). She follows with pulmonology in [place]. 2. Diverticulitis with abscess. Dr. Mata has been consulted, appreciate his help. Will be going for percutaneous drainage in this afternoon. Day #3 antibiotics. Urine culture grew Escherichia coli resistant to quinolones, so antibiotics switched to Rocephin and Flagyl. Will adjust as needed when cultures/sensitivities from her abscess. 3. Cystitis. CT findings and UA findings consistent with cystitis. On Rocephin, antibiotics day #3 4. Grade 2 diastolic CHF 2/2 Chronic hypertension. Continue Lasix. 5. JIGNESH. Continue home BiPAP 6. GERD. Hold ranitidine while taking PPI 7. Morbid Obesity. BMI 40.2 Complicate's care. Based on her A1c in November she may have diabetes. Currently she is not taking any anti-glycemic agents, follow up with PCP for dietitian consult. Sliding scale insulin with hypoglycemia protocol. DVT prophylaxis with heparin Disposition: Pending cultures from her abscess. Potential discharge in 24-48 hours. VS,Fishbone, I+O VS, Fishbone, I+O Laboratory Tests 05/10/19 08:11 Vital Signs Date Time Temp Pulse Resp B/P (MAP) Pulse Ox O2 Delivery O2 Flow Rate FiO2 05/10/19 08:00 97.0 95 20 125/70 (88) 93 Nasal Cannula 2.0 I&O- Last 24 Hours up to 6 AM 05/10/19 06:00 Intake Total 2780 ml Output Total 1325 ml Balance 1455 ml GME ATTESTATION GME ATTESTATION My faculty preceptor for this patient encounter was physically present during the encounter and was fully available. All aspects of the patient interview, examination, medical decision making process, and medical care plan development were reviewed and approved by the faculty preceptor. The faculty preceptor is aware and concurs with the plan as stated in the body of this note and will attest to such by his/her cosignature. ATTENDING NOTE I, Justin Hester, have independently examined this patient and performed my own physical exam, as well as reviewed the documentation and edited where necessary. I have discussed in detail with the resident / student the findings and plan of treatment as documented by the resident / student and edited their note. I agree with their findings and treatment plan and have edited their documentation. I will continue to follow the patient during this hospital stay. HELENA GALLEGOS D.O. May 10, 2019 11:36 JUSTIN HESTER MD May 10, 2019 13:12
[2019-05-10 12:00] VITALS: BP 134/75
[2019-05-10] MEDS: SODIUM CHLORIDE 0.9% NASAL GEL 15GM (AYR) SCH ×2 (12:44→21:05)
[2019-05-10 16:00] VITALS: BP 137/73
[2019-05-10 16:54] VITALS: BP 153/101
[2019-05-10 21:30] VITALS: BP 152/96
[2019-05-11] MEDS: IPRATROPIUM 0.5MG/ALBUTEROL 2.5MG INH SOL UD 3ML (DUONEB)(J7620) NEB SCH ×5 (00:37→19:44)
[2019-05-11] MEDS: metroNIDAZOLE 500 MG in IV 1 EA IV SCH (01:39)
[2019-05-11] MEDS: HEPARIN SOD (PORCINE) 5000 UNITS/ML VIAL SQ SCH ×3 (05:26→21:19)
[2019-05-11 06:30] VITALS: BP 157/82
[2019-05-11] MEDS: HumaLOG INSULIN (NovoLOG) PER UNIT SC SCH ×4 (07:30→21:20)
[2019-05-11] MEDS ORDERED: methylPREDNISolone INJ 40 MG/1 ML VIAL (J2920) As Ordered ONE (08:09)
[2019-05-11] MEDS ORDERED: methylPREDNISolone INJ 125 MG/2 ML VIAL (J2930) IV ONE (08:15)
[2019-05-11] MEDS: metroNIDAZOLE (FLAGYL) 500 MG TAB PO SCH ×2 (08:32→14:41)
[2019-05-11 09:08] LABS: HEMATOCRIT 44.5 % (36.0-47.0); HEMOGLOBIN 13.4 g/dl (12.0-15.5); MEAN CORPUSCULAR HEMOGLOBIN 26.2 pg (27.0-33.0); MEAN CORPUSCULAR HGB CONC 30.1 g/dl (32.0-36.5); MEAN CORPUSCULAR VOLUME 87.1 fl (80.0-96.0); PLATELET COUNT, AUTOMATED 294 10^3/uL (150-450); RED BLOOD COUNT 5.11 10^6/uL (4.00-5.40); WHITE BLOOD COUNT 10.1 10^3/uL (4.0-10.0)
[2019-05-11 09:22] LABS: CALCIUM LEVEL 9.2 MG/DL (8.8-10.2); CREATININE FOR GFR 1.13 MG/DL (0.55-1.30); GLOMERULAR FILTRATION RATE 51.9 (>45); POTASSIUM SERUM 3.5 MEQ/L (3.5-5.1)
[2019-05-11] MEDS: CEFDINIR 300 MG CAP (OMNICEF) PO SCH ×2 (09:41→21:19)
[2019-05-11] MEDS: PANTOPRAZOLE 40MG TAB (PROTONIX) PO SCH (09:41)
[2019-05-11] MEDS: NICOTINE 21MG/24HR 1 EA TRANSDERMAL TOP SCH (09:41)
[2019-05-11] MEDS: predniSONE 20 MG TAB PO SCH (09:41)
[2019-05-11] MEDS: FUROSEMIDE 40 MG TAB PO SCH (09:41)
[2019-05-11] MEDS: guaiFENesin ER 600 MG TAB PO SCH ×2 (09:41→21:19)
[2019-05-11] MEDS: ASPIRIN 81 MG ENTERIC TAB PO SCH (09:41)
[2019-05-11] MEDS: SODIUM CHLORIDE 0.9% NASAL GEL 15GM (AYR) SCH ×2 (09:42→21:19)
[2019-05-11] MEDS: FLUTICASONE PROP 0.05% NASAL SPRAY 16 GM (FLONASE) SCH (09:42)
[2019-05-11] MEDS: CHLORASEPTIC SPRAY MT PRN ×3 (09:45→18:17)
[2019-05-11] MEDS: traMADol 50 MG TAB PO PRN (09:51)
--- NOTE | 2019-05-11 11:19 | IPNPDOC ---
Text Note Date of Service The patient was seen on 05/11/19. NOTE Patient feels better in terms of her diverticulitis. Denies any lingering abd ominal discomfort. She is tolerating diet, without diarrhea, or systemic signs of inflammatory response nor peritonitis. She is having some intermittent difficulty with breathing from her COPD. On examination noted to have some audible wheezing, slight labored breathing Abdominal exam shows round, obese abdomen, nondistended. Previous tenderness over left lower abdomen and suprapubic area resolved. Impression: Acute diverticulitis with pericolonic abscess ([place] 2) continue antibiotics for 2 week course. She says she has had a recent colonoscopy this year just showing diverticulosis. She has had multiple bouts of diverticulitis with this presentation slightly complicated but patient not a suitable candidate for elective colon resection given state of her COPD. I discussed with her need to maintain high fiber diet. Follow up with me prn. VS,Fishbone, I+O VS, Fishbone, I+O Laboratory Tests 05/11/19 08:45 Vital Signs Date Time Temp Pulse Resp B/P (MAP) Pulse Ox O2 Delivery O2 Flow Rate FiO2 05/11/19 10:21 18 05/11/19 08:20 2.0 05/11/19 06:30 98.5 85 157/82 (107) 97 NIPPV (BIPAP/CPAP) I&O- Last 24 Hours up to 6 AM 05/11/19 06:00 Intake Total 1845 ml Output Total 800 ml Balance 1045 ml KELLI STOLL MD May 11, 2019 11:19
[2019-05-11 14:00] VITALS: BP 155/95
[2019-05-11] MEDS ORDERED: ALBUTEROL SULFATE 2.5 MG/0.5 ML INH NEB SOLN NEB PRN (15:15)
--- NOTE | 2019-05-11 15:16 | IPNPDOC ---
Text Note Date of Service The patient was seen on 05/11/19. NOTE SUBJECTIVE: Upon arrival to the bedside in [facility] [place], I found the patient acutely in respiratory distress. She was breathing heavy and sitting up, almost in a tripod position. Her BiPAP was on her face. She was gasping like she could not take it good breath, and that the BiPAP was pushing too much air in. I immediately paged respiratory and put a nonrebreather on her. Respiratory therapy arrived and started a DuoNeb treatment. 125 mg of IV Solu-Medrol was ordered and given at bedside. She started to feel better within a few minutes, and upon reassessment, lungs sounded like there was more air movement but she did have some persistent wheezes. Her abdominal pain is improved, she denies any nausea, vomiting, diarrhea, or constipation. She denies any new leg swelling. OBJECTIVE: Vitals: see below General: Obese, well-developed, no acute distress. Resting comfortably HEENT: Normocephalic, atraumatic. Nasal cannula in place. Mucous membranes are moist. Heart: Regular rate and rhythm; no murmurs, rubs, or gallops. Lungs: Breathing is labored with diffuse inspiratory and expiratory wheezes and coarse breath sounds bilaterally; reassessment showed better air movement throughout the lung nava, with less risk for muscle effort Abdomen: Bowel sounds are hypoactive. Abdomen is soft and tender with palpation of the left lower quadrant. Bandage in the left lower quadrant from her percutaneous drainage, dressing is dry and intact. Extremities: No lower extremity edema bilaterally, no clubbing or cyanosis. Skin: No rashes, jaundice, or skin lesions Neuro: Cranial nerves II-XII are grossly intact. Strength 5 out of 5 bilaterally, sensation intact throughout Psych: Answers questions appropriately, affect full LABORATORY DATA: See below. IMAGING: Chest x-ray 05/08/19: Chronic changes. No acute cardiopulmonary process appreciated. CT abdomen and pelvis 05/08/19: 1. Moderate acute sigmoid diverticulitis with intramural abscess on coronal image 62 series 202 measuring 2.3 x 1.5 cm and series 201 image 95 measuring 2.7 x 1.2 cm. 2. Loss of fat planes between the sigmoid colon and bladder along its left superior margin with a 2.2 x 2 cm fluid collection with rim enhancement along the bladder wall and sigmoid colon, likely an abscess, uncertain if within the bladder wall, or just adjacent. 3. Mild stranding adjacent to the bladder, correlate for cystitis with urinalysis. 4. Left inferior renal pole 2.7 cm cyst. MICROBIOLOGY: BC x 2 negative after 48 hours. UC grew Escherichia coli sensitive to cephalosporins, abscess culture grew Escherichia coli sensitive to cephalosporins as well. ASSESSMENT: Ms. Schilling is a 69-year-old female with past medical history of COPD oxygen- dependent respiratory failure, diverticulosis, Grade 2 diastolic dysfunction, chronic hypertension, obesity and JIGNESH who will be admitted for management of acute COPD exacerbation and diverticulitis with abscess. PLAN: 1. Acute COPD exacerbation/ chronic oxygen-dependent respiratory failure. Chest x-ray unremarkable. Continue pulmonary toilet and O2 orders. Due to acute respiratory distress this morning, prednisone and changed to Solu-Medrol. Today is day #4 of steroids. She follows with pulmonology in [place]. 2. Diverticulitis with abscess. Dr. Mata has been consulted, appreciate his help. Status post percutaneous drainage on 05/09/19. Day #4/14 antibiotics. Urine culture and abscess culture grew Escherichia coli sensitive to cephalosporins, so antibiotics switched oral Cefdinir. 3. Cystitis. CT findings and UA findings consistent with cystitis. ABX Day#4/14, now on oral cefdinir 300 mg BID. 4. Grade 2 diastolic CHF 2/2 Chronic hypertension. Continue Lasix. 5. JIGNESH. Continue home BiPAP 6. GERD. Hold ranitidine while taking PPI 7. Morbid Obesity. BMI 40.2 Complicate's care. Based on her A1c in November she may have diabetes. Currently she is not taking any anti-glycemic agents, follow up with PCP for dietitian consult. Sliding scale insulin with hypoglycemia protocol. DVT prophylaxis with heparin Disposition: Complicated by acute respiratory distress this morning. Potential discharge in 24-48 hours pending clinical improvement. VS,Fishbone, I+O VS, Fishbone, I+O Laboratory Tests 05/11/19 08:45 Vital Signs Date Time Temp Pulse Resp B/P (MAP) Pulse Ox O2 Delivery O2 Flow Rate FiO2 05/11/19 10:21 18 05/11/19 08:20 2.0 05/11/19 06:30 98.5 85 157/82 (107) 97 NIPPV (BIPAP/CPAP) I&O- Last 24 Hours up to 6 AM 05/11/19 06:00 Intake Total 1845 ml Output Total 800 ml Balance 1045 ml GME ATTESTATION GME ATTESTATION My faculty preceptor for this patient encounter was physically present during the encounter and was fully available. All aspects of the patient interview, examination, medical decision making process, and medical care plan development were reviewed and approved by the faculty preceptor. The faculty preceptor is aware and concurs with the plan as stated in the body of this note and will attest to such by his/her cosignature. ATTENDING NOTE I, Justin Hester, have independently examined this patient and performed my own physical exam, as well as reviewed the documentation and edited where necessary. I have discussed in detail with the resident / student the findings and plan of treatment as documented by the resident / student and edited their note. I agree with their findings and treatment plan and have edited their documentation. I will continue to follow the patient during this hospital stay. HELENA GALLEGOS D.O. May 11, 2019 15:16 JUSTIN HESTER MD May 11, 2019 15:24
[2019-05-11] MEDS: methylPREDNISolone INJ 125 MG/2 ML VIAL (J2930) IV SCH ×2 (16:06→23:41)
[2019-05-11 20:08] VITALS: BP 131/80
[2019-05-12] MEDS: IPRATROPIUM 0.5MG/ALBUTEROL 2.5MG INH SOL UD 3ML (DUONEB)(J7620) NEB SCH ×4 (01:27→20:42)
[2019-05-12] MEDS: HEPARIN SOD (PORCINE) 5000 UNITS/ML VIAL SQ SCH ×3 (05:47→21:15)
[2019-05-12 06:14] VITALS: BP 150/88
[2019-05-12 06:24] LABS: HEMOGLOBIN 12.5 g/dl (12.0-15.5); MEAN CORPUSCULAR HEMOGLOBIN 25.7 pg (27.0-33.0); MEAN CORPUSCULAR HGB CONC 29.8 g/dl (32.0-36.5); MEAN CORPUSCULAR VOLUME 86.4 fl (80.0-96.0); PLATELET COUNT, AUTOMATED 288 10^3/uL (150-450); RED BLOOD COUNT 4.86 10^6/uL (4.00-5.40); WHITE BLOOD COUNT 8.7 10^3/uL (4.0-10.0)
[2019-05-12 06:35] LABS: CREATININE FOR GFR 1.08 MG/DL (0.55-1.30); GLOMERULAR FILTRATION RATE 54.7 (>45); POTASSIUM SERUM 3.9 MEQ/L (3.5-5.1)
[2019-05-12] MEDS: CEFDINIR 300 MG CAP (OMNICEF) PO SCH ×2 (08:02→20:18)
[2019-05-12] MEDS: HumaLOG INSULIN (NovoLOG) PER UNIT SC SCH ×4 (08:02→20:19)
[2019-05-12] MEDS: PANTOPRAZOLE 40MG TAB (PROTONIX) PO SCH (08:03)
[2019-05-12] MEDS: guaiFENesin ER 600 MG TAB PO SCH ×2 (08:03→20:18)
[2019-05-12] MEDS: ASPIRIN 81 MG ENTERIC TAB PO SCH (08:03)
[2019-05-12] MEDS: FUROSEMIDE 40 MG TAB PO SCH (08:03)
[2019-05-12] MEDS: NICOTINE 21MG/24HR 1 EA TRANSDERMAL TOP SCH (08:05)
[2019-05-12] MEDS: FLUTICASONE PROP 0.05% NASAL SPRAY 16 GM (FLONASE) SCH (08:06)
[2019-05-12] MEDS: SODIUM CHLORIDE 0.9% NASAL GEL 15GM (AYR) SCH ×2 (08:06→21:15)
[2019-05-12] MEDS: methylPREDNISolone INJ 125 MG/2 ML VIAL (J2930) IV SCH (12:24)
--- NOTE | 2019-05-12 12:24 | IPNPDOC ---
Text Note Date of Service The patient was seen on 05/12/19. NOTE SUBJECTIVE: Upon arrival to the bedside in [facility] [place], I found the patient acutely in respiratory distress. She was breathing heavy and sitting up, almost in a tripod position. Her BiPAP was on her face. She was gasping like she could not take it good breath, and that the BiPAP was pushing too much air in. I immediately paged respiratory and put a nonrebreather on her. Respiratory therapy arrived and started a DuoNeb treatment. 125 mg of IV Solu-Medrol was ordered and given at bedside. She started to feel better within a few minutes, and upon reassessment, lungs sounded like there was more air movement but she did have some persistent wheezes. Her abdominal pain is improved, she denies any nausea, vomiting, diarrhea, or constipation. She denies any new leg swelling. OBJECTIVE: Vitals: see below General: Obese, well-developed, no acute distress. Resting comfortably HEENT: Normocephalic, atraumatic. Nasal cannula in place. Mucous membranes are moist. Heart: Regular rate and rhythm; no murmurs, rubs, or gallops. Lungs: Breathing is unlabored with mild and diffuse inspiratory and expiratory fine wheezes. Pursed lip breathing, which is chronic for her Abdomen: Bowel sounds are hypoactive. Abdomen is soft and tender with palpation of the left lower quadrant. Bandage in the left lower quadrant from her percutaneous drainage, dressing is dry and intact. Extremities: No lower extremity edema bilaterally, no clubbing or cyanosis. Skin: No rashes, jaundice, or skin lesions Neuro: Cranial nerves II-XII are grossly intact. Strength 5 out of 5 bilaterally, sensation intact throughout Psych: Answers questions appropriately, affect full LABORATORY DATA: See below. IMAGING: Chest x-ray 05/08/19: Chronic changes. No acute cardiopulmonary process appreciated. CT abdomen and pelvis 05/08/19: 1. Moderate acute sigmoid diverticulitis with intramural abscess on coronal image 62 series 202 measuring 2.3 x 1.5 cm and series 201 image 95 measuring 2.7 x 1.2 cm. 2. Loss of fat planes between the sigmoid colon and bladder along its left superior margin with a 2.2 x 2 cm fluid collection with rim enhancement along the bladder wall and sigmoid colon, likely an abscess, uncertain if within the bladder wall, or just adjacent. 3. Mild stranding adjacent to the bladder, correlate for cystitis with urinalysis. 4. Left inferior renal pole 2.7 cm cyst. MICROBIOLOGY: BC x 2 negative after 48 hours. UC grew Escherichia coli sensitive to cephalosporins, abscess culture grew Escherichia coli sensitive to cephalosporins as well. ASSESSMENT: Ms. Schilling is a 69-year-old female with past medical history of COPD oxygen- dependent respiratory failure, diverticulosis, Grade 2 diastolic dysfunction, chronic hypertension, obesity and JIGNESH who will be admitted for management of acute COPD exacerbation and diverticulitis with abscess. PLAN: 1. Acute COPD exacerbation/ chronic oxygen-dependent respiratory failure. Chest x-ray unremarkable. Continue pulmonary toilet and O2 orders. Solu-Medrol decreased to BID. Today is day #5 of steroids, she will most likely need a taper on discharge. She follows with pulmonology in [place]. 2. Diverticulitis with abscess. Dr. Mata has been consulted, appreciate his help. Status post percutaneous drainage on 05/09/19. Day #5/14 antibiotics. Urine culture and abscess culture grew Escherichia coli sensitive to cephalosporins, so continues on oral Cefdinir. 3. Cystitis. CT findings and UA findings consistent with cystitis. ABX Day#5/14, now on oral cefdinir 300 mg BID. 4. Grade 2 diastolic CHF 2/2 Chronic hypertension. Continue Lasix. 5. JIGNESH. Continue home BiPAP 6. GERD. Hold ranitidine while taking PPI 7. Morbid Obesity. BMI 40.2 Complicate's care. Based on her A1c in November she may have diabetes. Currently she is not taking any anti-glycemic agents, follow up with PCP for dietitian consult. Sliding scale insulin with hypoglycemia protocol. DVT prophylaxis with heparin Disposition: Probably discharge in 24 hours. VS,Fishbone, I+O VS, Fishbone, I+O Laboratory Tests 05/12/19 05:39 Vital Signs Date Time Temp Pulse Resp B/P (MAP) Pulse Ox O2 Delivery O2 Flow Rate FiO2 05/12/19 08:00 3.0 05/12/19 06:14 96.5 88 20 150/88 (108) 93 Room Air I&O- Last 24 Hours up to 6 AM 05/12/19 06:00 Intake Total 1920 ml Output Total 400 ml Balance 1520 ml GME ATTESTATION GME ATTESTATION My faculty preceptor for this patient encounter was physically present during the encounter and was fully available. All aspects of the patient interview, examination, medical decision making process, and medical care plan development were reviewed and approved by the faculty preceptor. The faculty preceptor is aware and concurs with the plan as stated in the body of this note and will attest to such by his/her cosignature. ATTENDING NOTE I, Justin Hester, have independently examined this patient and performed my own physical exam, as well as reviewed the documentation and edited where necessary. I have discussed in detail with the resident / student the findings and plan of treatment as documented by the resident / student and edited their note. I agree with their findings and treatment plan and have edited their documentation. I will continue to follow the patient during this hospital stay. HELENA GALLEGOS D.O. May 12, 2019 12:24 JUSTIN HESTER MD May 12, 2019 15:37
[2019-05-12] MEDS: METAMUCIL (PSYLLIUM) PACKET PO SCH ×2 (12:29→20:18)
[2019-05-12 14:00] VITALS: BP 138/88
[2019-05-12] MEDS: traMADol 50 MG TAB PO PRN (17:17)
[2019-05-12 22:00] VITALS: BP 120/79
[2019-05-13] MEDS: methylPREDNISolone INJ 125 MG/2 ML VIAL (J2930) IV SCH ×2 (00:23→12:44)
[2019-05-13] MEDS: IPRATROPIUM 0.5MG/ALBUTEROL 2.5MG INH SOL UD 3ML (DUONEB)(J7620) NEB SCH ×3 (01:29→14:00)
[2019-05-13] MEDS: HEPARIN SOD (PORCINE) 5000 UNITS/ML VIAL SQ SCH ×2 (05:08→13:43)
[2019-05-13 06:00] VITALS: BP 138/81
[2019-05-13 06:39] LABS: HEMATOCRIT 41.5 % (36.0-47.0); HEMOGLOBIN 12.9 g/dl (12.0-15.5); MEAN CORPUSCULAR HEMOGLOBIN 26.5 pg (27.0-33.0); MEAN CORPUSCULAR HGB CONC 31.1 g/dl (32.0-36.5); MEAN CORPUSCULAR VOLUME 85.2 fl (80.0-96.0); PLATELET COUNT, AUTOMATED 331 10^3/uL (150-450); RED BLOOD COUNT 4.87 10^6/uL (4.00-5.40); WHITE BLOOD COUNT 10.2 10^3/uL (4.0-10.0)
[2019-05-13 07:05] LABS: CALCIUM LEVEL 9.7 MG/DL (8.8-10.2); CREATININE FOR GFR 1.11 MG/DL (0.55-1.30); POTASSIUM SERUM 3.9 MEQ/L (3.5-5.1)
[2019-05-13] MEDS: FLUTICASONE PROP 0.05% NASAL SPRAY 16 GM (FLONASE) SCH (08:10)
[2019-05-13] MEDS: SODIUM CHLORIDE 0.9% NASAL GEL 15GM (AYR) SCH (08:11)
[2019-05-13] MEDS: CEFDINIR 300 MG CAP (OMNICEF) PO SCH ×2 (08:11→15:08)
[2019-05-13] MEDS: guaiFENesin ER 600 MG TAB PO SCH ×2 (08:12→15:08)
[2019-05-13] MEDS: FUROSEMIDE 40 MG TAB PO SCH (08:12)
[2019-05-13] MEDS: PANTOPRAZOLE 40MG TAB (PROTONIX) PO SCH (08:12)
[2019-05-13] MEDS: ASPIRIN 81 MG ENTERIC TAB PO SCH (08:12)
[2019-05-13] MEDS: HumaLOG INSULIN (NovoLOG) PER UNIT SC SCH ×2 (08:13→13:42)
[2019-05-13] MEDS: METAMUCIL (PSYLLIUM) PACKET PO SCH (08:13)
[2019-05-13] MEDS: NICOTINE 21MG/24HR 1 EA TRANSDERMAL TOP SCH (08:13)
[2019-05-13] MEDS ORDERED: CEFD300CAP PO (08:55)
[2019-05-13] MEDS ORDERED: PRED10TA2 PO (08:55)
[2019-05-13] MEDS ORDERED: MUCI600T31 PO (08:55)
--- NOTE | 2019-05-13 12:36 | DS.PDOC ---
Discharge Summary General Date of Admission May 08, 2019 at 22:47 Date of Discharge 05/13/2019 Discharge Summary PROCEDURES PERFORMED DURING STAY: [None]. ADMITTING DIAGNOSES / DISCHARGE DIAGNOSES: Shortness of breath - likely 2/2 acute COPD exacerbation / chronic hypoxic respiratory failure Diverticulitis with abscess Cystitis Chronic Grade 2 Diastolic CHF 2/2 Chronic hypertension JIGNESH on BIPAP Elevated glucose while on corticosteroids GERD Morbid Obesity DVT prophylaxis COMPLICATIONS/CHIEF COMPLAINT: Abdominal pain HISTORY OF PRESENT ILLNESS: Patient is a 63-year-old female with a past medical history of diverticulitis, COPD, chronic oxygen dependent respiratory failure on 2 L of oxy gen, grade 2 diastolic CHF, HTN, morbid obesity, JIGNESH on BiPAP, GERD who presented to the emergency room with complaints of shortness of breath and left lower abdominal pain. Emergency room, patient had CT scan completed the head revealed evidence of abscess and diverticulitis. Patient was admitted to hospitalist service for drainage of abscess in management of her COPD. Surgery was called on consultation. HOSPITAL COURSE: Shortness of breath - likely 2/2 acute COPD exacerbation / chronic hypoxic respiratory failure - Presented to the emergency room physicians of breath; clinically has had si gnificant improvement - Physical is without any signs of wheezing - CXR 05/08: Chronic changes. No acute cardiopulmonary process appreciated. - s/p Solumedrol; Will c/w Prednisone - c/w Inhaled therapy as orderded - Will have outpatient f/u with Pulmonology Diverticulitis with abscess - Patient's abdominal pain has resolved - Remained hemodynamically stable and afebrile - Leukocytosis from admission has resolved; new leukocytosis is likely secondary to cortical steroid use - CT abdomen 05/08:1. Moderate acute sigmoid diverticulitis with intramural abscess on coronal image 62 series 202 measuring 2.3 x 1.5 cm and series 201 image 95 measuring 2.7 x 1.2 cm. 2. Loss of fat planes between the sigmoid colon and bladder along its left superior margin with a 2.2 x 2 cm fluid collection with rim enhancement along the bladder wall and sigmoid colon, likely an abscess, uncertain if within the bladder wall, or just adjacent. 3. Mild stranding adjacent to the bladder, correlate for cystitis with urinalysis. 4. Left inferior renal pole 2.7 cm cyst. - c/w Cefdinir; s/p Ciprofloxacin / Ceftriaxone / Metronidazole - Will have outpatient follow up with General surgery, Dr. Mata Cystitis - CT findings and UA findings consistent with cystitis - c/w Cefdinir Chronic Grade 2 Diastolic CHF 2/2 Chronic hypertension - No evidence of exacerbation - c/w Furosemide based on outpatient dose JIGNESH on BIPAP - May use BIPAP while inpatient Elevated glucose while on corticosteroids - c/w ISS while inpatient GERD - c/w Protonix Morbid Obesity - BMI of 43.6 - Complicating medical care DVT prophylaxis - c/w heparin DISCHARGE MEDICATIONS: Please see below. ALLERGIES: Please see below. PHYSICAL EXAMINATION ON DISCHARGE: Vitals (See below) General: Lying in bed, no acute distress, comfortable, AAOx3 HEENT: NC, AT CVS: RRR, +S1S2 Lungs: Fair air entry b/l, there are no appreciable wheezing, rhonchi, rales Abdomen: Soft, no distention and no tenderness Extremities: - Edema, - Calf tenderness LABORATORY DATA: Please see below. ACTIVITY: [As tolerated]. DISCHARGE PLAN: Follow with primary care provider and pulmonology within 7 days Remain compliant with treatment and medications Return to the ER if you experience any problems DISPOSITION: Home with services DISCHARGE CONDITION: [Stable]. TIME SPENT ON DISCHARGE: 34 minutes Vital Signs/I&Os Vital Signs Date Time Temp Pulse Resp B/P (MAP) Pulse Ox O2 Delivery O2 Flow Rate FiO2 05/13/19 08:15 3.0 05/13/19 06:00 97.8 78 20 138/81 (100) 95 Nasal Cannula l I&O- Last 24 Hours up to 6 AM 05/13/19 06:00 Intake Total 2220 ml Output Total 1150 ml Balance 1070 ml Laboratory Data Labs 24H Laboratory Tests 2 05/12/19 13:39: Bedside Glucose (Misc Panel) 215H 05/12/19 17:52: Bedside Glucose (Misc Panel) 186H 05/12/19 19:58: Bedside Glucose (Misc Panel) 181H 05/13/19 05:51: Nucleated Red Blood Cells % (auto) 0.0, Anion Gap 6L, Glomerular Filtration Rate 53.0, Calcium Level 9.7 05/13/19 11:54: Bedside Glucose (Misc Panel) 251H CBC/BMP Laboratory Tests 05/13/19 05:51 FSBS Laboratory Tests Test 05/12/19 13:39 05/12/19 17:52 05/12/19 19:58 05/13/19 11:54 Range/Units Bedside Glucose (Misc Panel) 215 186 181 251 80-115 MG/DL Microbiology Microbiology 05/09/19 Gram Stain - Final, Complete 05/09/19 Abscess Culture - Final, Complete Escherichia Coli 05/09/19 Anaerobic Culture, Received Pending 05/08/19 Blood Culture - Preliminary, Resulted No Growth after 72 hours. All specime... 05/08/19 Urine Culture - Final, Complete Escherichia Coli 05/08/19 Blood Culture - Preliminary, Resulted No Growth after 72 hours. All specime... Discharge Medications Scheduled Aspirin (Aspirin EC) 81 Mg Tabec, 81 MG PO DAILY, (Reported) Budesonide/Formoterol (Symbicort 160-4.5 Mcg Inhaler) 60 Puff/Inhaler Aers, 2 PUFF INH BID Cefdinir (Cefdinir) 300 Mg Capsule, 300 MG PO BID Fluticasone Propionate (Flonase Allergy Relief) 9.9 Ml [place].susp, 2 SPRAYS NA D GEE, (Reported) Furosemide (Furosemide) 40 Mg Tab, 40 MG PO DAILY, (Reported) Guaifenesin (Mucinex) 600 Mg Tab.er.12h, 600 MG PO BID Lanolin Alcohol/Mo/W.pet/[place] (Eucerin Creme) 454 Gm Cream..g., 1 DOSE TOP QHS, (Reported) APPLIES TO ELBOWS AND COVERS THEM TO REMAIN ON OVERNIGHT Nicotine (Nicotine Patch) 21 Mg Patch.td24, 1 PATCH TOP DAILY, (Reported) APPLIES TO ARMS OR CHEST Prednisone (Prednisone) 10 Mg Tablet, 10 MG PO TAPER Take 4 tabs daily x 3 days, then 3 tabs daily x 3 days, then 2 tabs daily x 3 days, then 1 tab daily x 3 days and stop Ranitidine HCl (Ranitidine HCl) 300 Mg Tab, 1 TAB PO DAILY, (Reported) Scheduled PRN Albuterol Sulf (Albuterol Sulfate) 2.5 Mg/3 Ml Nebu, 2.5 MG INH Q4H PRN for SHORTNESS OF BREATH, (Reported) Albuterol Sulfate (Proair Hfa) 108 Mcg/Act Aer, 2 PUFF INH Q4H PRN for SHORTNESS OF BREATH Tramadol HCl (Tramadol HCl) 50 Mg Tablet, 50 MG PO QID PRN for PAIN, (Reported) Allergies Coded Allergies: Penicillins (Verified Allergy, Intermediate, HIVES, 05/08/19) pt has had cefdinir in the past Quinolones (Verified Allergy, Intermediate, RASH, 05/08/19) metronidazole (Verified Allergy, Mild, itching, 05/08/19) Sulfa (Sulfonamide Antibiotics) (Verified Adverse Reaction, Intermediate, VOMITING, BLISTERS, TACHYCARDIA, 05/08/19) Tetracyclines (Verified Adverse Reaction, Intermediate, TACHYCARDIA, BLISTERS, HIVES, 05/08/19) aripiprazole (Verified Adverse Reaction, Intermediate, TACHYCARDIA, 05/08/19) venlafaxine (Verified Adverse Reaction, Mild, INCREASED HR, 05/08/19) Macrolide Antibiotics (Verified Adverse Reaction, Unknown, ITCHY, HIVES, 05/08/19) HAS TAKEN AZITHROMYCIN W/O PROBLEM ELVIS VILLANUEVA MD May 13, 2019 12:36
[2019-05-13 14:00] VITALS: BP 134/80
== END 2019-05-13 15:30 | disposition home health service (06) | DRG 392 ==
LOC: M ED 18:51 → EDBD 18:51 → M ED INP 22:47 → M PCU 23:55 → M MS5PR 05-10 16:44
PROVIDERS: ADMIT Internal Medicine; ATTEND Internal Medicine
DX: K57.20 Diverticulitis of large intestine with perforation and abscess without bleeding (principal); Z68.41 Body mass index [BMI] 40.0-44.9, adult; I50.32 Chronic diastolic (congestive) heart failure; J96.11 Chronic respiratory failure with hypoxia; J44.1 Chronic obstructive pulmonary disease with (acute) exacerbation; E66.01 Morbid (severe) obesity due to excess calories; N30.90 Cystitis, unspecified without hematuria; G47.33 Obstructive sleep apnea (adult) (pediatric); K21.9 Gastro-esophageal reflux disease without esophagitis; I11.0 Hypertensive heart disease with heart failure; Z99.81 Dependence on supplemental oxygen; Z79.82 Long term (current) 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; Z79.899 Other long term (current) drug therapy; Z88.0 Allergy status to penicillin; Z87.891 Personal history of nicotine dependence; Z88.2 Allergy status to sulfonamides; Z88.8 Allergy status to other drugs, medicaments and biological substances

== ENCOUNTER 2019-07-16 15:52 | Emergency (ER) | payer MEDICARE, MEDICAID ==
[~2019-07-16] VITALS: Ht 167.6 cm; Wt 79.5 kg
[~2019-07-16 15:52] MED LIST changes: -CLAR500T PO; +CLAR500T97 PO; +EUCECRE8 TOP; +FLON1SPR
[2019-07-16] MEDS ORDERED: DALI1TAB2 (16:01)
[2019-07-16] MEDS ORDERED: ALBUTEROL SULFATE 2.5 MG/0.5 ML INH NEB SOLN INH ONE (18:15)
[2019-07-16] MEDS ORDERED: IPRATROPIUM 0.5MG/ALBUTEROL 2.5MG INH SOL UD 3ML (DUONEB)(J7620) NEB ONE (18:15)
[2019-07-16] MEDS ORDERED: methylPREDNISolone INJ 125 MG/2 ML VIAL (J2930) IV ONE (18:15)
--- NOTE | 2019-07-16 18:55 | REP ---
Clinical: Shortness of breath . Comparison: 05/08/2019 . Findings: The mediastinum and cardiac silhouette are stable and within normal limits for portable technique. The lung nava demonstrate stable chronic-appearing changes without acute consolidation, effusion, or pneumothorax. Skeletal structures are intact. Impression: No acute cardiopulmonary process appreciated. Electronically Signed by Kai Nguyen MD 07/16/2019 06:46 P
[2019-07-16 19:35] LABS: INFLUENZA A AMPLIFICATION NEGATIVE (NEGATIVE); INFLUENZA B AMPLIFICATION NEGATIVE (NEGATIVE)
[2019-07-16 19:35] LABS: ABG BASE EXCESS 1.1 (-2.0-2.0); ABG HCO3 26.4 MEQ/L (22.0-26.0); ABG O2 SATURATION 94.6 % (95.0-99.0); ABG PARTIAL PRESSURE CO2 44.2 mmHg (35.0-45.0); ABG PARTIAL PRESSURE O2 73.3 mmHg (75.0-100.0); ABG STANDARD HCO3 25.4 MEQ/L (22.0-26.0); ABG TOTAL CO2 27.8 MEQ/L (23.0-31.0); ABG pH (ARTERIAL) 7.394 UNITS (7.350-7.450)
[2019-07-16 19:37] LABS: HEMATOCRIT 48.3 % (36.0-47.0); HEMOGLOBIN 14.4 g/dl (12.0-15.5); MEAN CORPUSCULAR HEMOGLOBIN 26.3 pg (27.0-33.0); MEAN CORPUSCULAR HGB CONC 29.8 g/dl (32.0-36.5); MEAN CORPUSCULAR VOLUME 88.1 fl (80.0-96.0); PLATELET COUNT, AUTOMATED 349 10^3/uL (150-450); RED BLOOD COUNT 5.48 10^6/uL (4.00-5.40); WHITE BLOOD COUNT 10.4 10^3/uL (4.0-10.0)
[2019-07-16 20:03] LABS: ATYPICAL LYMPH 1 % (0-5); BASOPHILS 1 % (0-1); EOSINOPHILS 1 % (0-3); LYMPHOCYTES 37 % (16-44); MONOCYTES 3 % (0-5); NEUTROPHILS 57 % (28-66)
[2019-07-16 20:04] LABS: PLATELET ESTIMATE NORMAL (NORMAL)
--- NOTE | 2019-07-16 20:04 | ECGEPIP ---
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
[2019-07-16 20:29] LABS: ALBUMIN 3.6 GM/DL (3.2-5.2); ALT/SGPT 33 U/L (12-78); BILIRUBIN,DIRECT < 0.1 MG/DL (0.0-0.2); BILIRUBIN,TOTAL 0.2 MG/DL (0.2-1.0); BLOOD UREA NITROGEN 11 MG/DL (7-18); CALCIUM LEVEL 9.6 MG/DL (8.8-10.2); CARBON DIOXIDE LEVEL 30 MEQ/L (21-32); CHLORIDE LEVEL 108 MEQ/L (98-107); CK-MB VALUE MASS < 1.0 NG/ML (<3.6); CPK CREATINE PHOSPHOKINASE 61 U/L (26-192); CREATININE FOR GFR 1.17 MG/DL (0.55-1.30); GLOMERULAR FILTRATION RATE 49.9 (>45); GLUCOSE, FASTING 101 MG/DL (70-100); MB/CK RELATIVE INDEX 1.64 (< OR =4); NT-PRO BNP 40 PG/ML (<125); POTASSIUM SERUM 3.9 MEQ/L (3.5-5.1); SODIUM LEVEL 143 MEQ/L (136-145); THYROXINE (T4) 9.1 UG/DL (4.5-12.0); TOTAL PROTEIN 6.8 GM/DL (6.4-8.2); TROPONIN I < 0.02 NG/ML (< 0.10)
[2019-07-16] MEDS ORDERED: PRED20TA PO (21:10)
[2019-07-16 21:32] VITALS: BP 131/70
== END 2019-07-16 21:33 | disposition home or self-care (01) ==
LOC: M ED 15:52
DX: J44.1 Chronic obstructive pulmonary disease with (acute) exacerbation (principal); I11.0 Hypertensive heart disease with heart failure; K21.9 Gastro-esophageal reflux disease without esophagitis; G47.30 Sleep apnea, unspecified; K58.9 Irritable bowel syndrome, unspecified; Z87.448 Personal history of other diseases of urinary system; Z87.891 Personal history of nicotine dependence; Z88.1 Allergy status to other antibiotic agents; Z88.0 Allergy status to penicillin; Z88.2 Allergy status to sulfonamides; Z88.8 Allergy status to other drugs, medicaments and biological substances; Z79.82 Long term (current) 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; Z79.51 Long term (current) use of inhaled steroids; Z79.899 Other long term (current) drug therapy
CPT/HCPCS: 71045; 80048; 80076; 82550; 82553; 82803; 83605; 83880; 84436; 84443; 84484; 85025; 87040; 87502; 93005; 93041; 94640; 94760; 96374; 99285; J2930

== ENCOUNTER 2020-03-30 02:48 | Inpatient (IN) | payer MEDICARE, MEDICAID ==
[2020-03-30] VITALS (9 sets, daily range): BP systolic 108–180; BP diastolic 63–98; O2SAT 90–98
[~2020-03-30] VITALS: Ht 170.2 cm; Wt 116.7 kg
[~2020-03-30 02:48] MED LIST changes: +ASPI81TA86 PO; +DALI1TAB2
[2020-03-30] MEDS: IPRATROPIUM 0.5MG/ALBUTEROL 2.5MG INH SOL UD 3ML (DUONEB) NEB PRN ×3 (03:06→03:47)
[2020-03-30 03:08] LABS: BASO # 0.1 10^3/uL (0.0-0.2); BASO % 0.9 % (0.0-1.0); EOS # 0.3 10^3/uL (0.0-0.5); HEMATOCRIT 45.6 % (36.0-47.0); HEMOGLOBIN 14.1 g/dl (12.0-15.5); LYMPH # 1.6 10^3/uL (1.5-5.0); LYMPH % 15.3 % (24.0-44.0); MEAN CORPUSCULAR HEMOGLOBIN 27.8 pg (27.0-33.0); MEAN CORPUSCULAR HGB CONC 30.9 g/dl (32.0-36.5); MEAN CORPUSCULAR VOLUME 89.8 fl (80.0-96.0); MONO # 0.6 10^3/uL (0.0-0.8); MONO % 5.8 % (0.0-5.0); NEUTROPHILS # 7.8 10^3/uL (1.5-8.5); NEUTROPHILS % 74.2 % (36.0-66.0); PLATELET COUNT, AUTOMATED 251 10^3/uL (150-450); RED BLOOD COUNT 5.08 10^6/uL (4.00-5.40); WHITE BLOOD COUNT 10.5 10^3/uL (4.0-10.0)
[2020-03-30 03:27] LABS: ALBUMIN 3.5 GM/DL (3.2-5.2); ALT/SGPT 37 U/L (12-78); BILIRUBIN,DIRECT 0.1 MG/DL (0.0-0.2); BILIRUBIN,TOTAL 0.5 MG/DL (0.2-1.0); BLOOD UREA NITROGEN 12 MG/DL (7-18); CARBON DIOXIDE LEVEL 26 MEQ/L (21-32); CHLORIDE LEVEL 110 MEQ/L (98-107); CK-MB VALUE MASS < 1.0 NG/ML (<3.6); CPK CREATINE PHOSPHOKINASE 64 U/L (26-192); CREATININE FOR GFR 1.28 MG/DL (0.55-1.30); GLOMERULAR FILTRATION RATE 44.8 (>45); GLUCOSE, FASTING 145 MG/DL (70-100); MB/CK RELATIVE INDEX 1.56 (< OR =4); SODIUM LEVEL 142 MEQ/L (136-145); TOTAL PROTEIN 6.9 GM/DL (6.4-8.2); TROPONIN I < 0.02 NG/ML (< 0.10)
--- NOTE | 2020-03-30 04:29 | REPVR ---
PROCEDURE INFORMATION: Exam: XR Chest, 1 View Exam date and time: 03/30/2020 3:20 AM Age: 64 years old Clinical indication: Other: Dyspnea/cough TECHNIQUE: Imaging protocol: XR of the chest Views: 1 view. COMPARISON: CR Chest, 1 view 07/16/2019 6:03 PM FINDINGS: Limitations: Image quality is reduced, possibly related to body habitus. Lungs: Unremarkable. No consolidation. Pleural space: Unremarkable. No pleural effusion. No pneumothorax. Heart/Mediastinum: Unremarkable. No cardiomegaly. Bones/joints: Unremarkable. IMPRESSION: No evidence of acute pleural or parenchymal disease. Electronically signed by: Sally Horvath On 03/30/2020 04:29:22 AM
[2020-03-30] MEDS ORDERED: COMBIVENT RESPIMAT 100-20MCG INHALER 4GM INH ONE (04:45)
--- NOTE | 2020-03-30 05:22 | HPEPDOC ---
[facility] Medical History & Physical Date of Admission Mar 30, 2020 Date of Service: Mar 30, 2020 Primary Care Physician: JENELLE VALDEZ MD [facility] Attending Physician: MARILYN CARO MD History and Physical TIME OF SERVICE: 612am CHIEF COMPLAINT: dyspnea HISTORY OF PRESENT ILLNESS: This is a 64 old presented w c/o dyspnea for 3 months, she came to the hospital last because she developed lateral chest pain that was worse with coughing along with chills. Per EMS when the arrived she mentioned that she could not find her CPAP mask. Her chronic cough that is productive of white sputum has not changed. She denies having fevers, BLE edema, sick contacts or traveling recently. REVIEW OF SYSTEMS: 12 point review of systems negative except as listed in HPI PAST MEDICAL/ SURGICAL HISTORY: COPD Chronic oxygen-dependent respiratory failure (2L O2) JIGNESH with periodic limb movement disorder nocturnal CPAP w 6cm H2O HFpEF/Chronic Grade 2 diastolic CHF Moderate pulmonary hypertension Chronic hypertension. Class 3 obesity NIDDM A1C 6.9% May 2019 GERD History of Diverticulitis w abscess Status post appendectomy Status post cholecystectomy Status post hysterectomy SOCIAL HISTORY: She reports that she quit smoking a few days ago Drinks alcohol socially FAMILY HISTORY: CVA CAD ALLERGIES: Please see below. HOME MEDICATIONS: Please see below. PHYSICAL EXAMINATION: Vital Signs Date Time Temp Pulse Resp B/P (MAP) Pulse Ox O2 Delivery O2 Flow Rate FiO2 03/30/20 02:54 184/107 (132) 03/30/20 03:00 105 26 97 Nasal Cannula 10.0 03/30/20 03:59 96.7 GEN: [place] habitus / well developed / NAD INTEGUMENT: she doesn't have facial plethora / her lips are not cyanotic HEENT: NC in place /neck short CVS: RRR/NMRG / radial pulse diminished LUNGS: able to speak full sentences w/o stopping to take a break / air entry equal bilaterally / she has prominent inspiratory wheezing ABD: contour obese / soft / ventral hernia palpable MSK: NCAT/ PERNELL x 4 NEURO: voice is hoarse/ speech not dysarthric PSYCH: A&O x 3 /able to understand and follow all commands LABORATORY DATA: 03/30/20 02:57 Immature Granulocyte % (Auto) 0.8, Neutrophils (%) (Auto) 74.2H, Lymphocytes (%) (Auto) 15.3L, Monocytes (%) (Auto) 5.8H, Eosinophils (%) (Auto) 3.0, Basophils (%) (Auto) 0.9, Neutrophils # (Auto) 7.8, Lymphocytes # (Auto) 1.6, Monocytes # (Auto) 0.6, Eosinophils # (Auto) 0.3, Basophils # (Auto) 0.1, Nucleated Red Blood Cells % (auto) 0.0, Anion Gap 6L, Glomerular Filtration Rate 44.8L, Lactic Acid Level 1.8, Calcium Level 9.0, Total Bilirubin 0.5, Direct Bilirubin 0.1, Aspartate Amino Transf (AST/SGOT) 16, Alanine Aminotransferase (ALT/SGPT) 37, Alkaline Phosphatase 87, Total Creatine Kinase 64, Creatine Kinase MB < 1.0, Creatine Kinase MB Relative Index 1.56, Troponin I < 0.02, Total Protein 6.9, Albumin 3.5, Albumin/Globulin Ratio 1.0L 03/30/20 03:00: POC pH (Misc Panel) 7.358, POC Base Excess (Misc Panel) -3.0L, POC Saturated Percent O2 (Misc) 91L, POC pO2 (Misc Panel) 62.0L, POC pCO2 (Misc Panel) 40.2, POC HCO3 (Misc Panel) 22.6, POC Total CO2 (Misc Panel) 24.0 IMAGING: Chest xray "No evidence of acute pleural or parenchymal disease." MICROBIOLOGY: 03/30/20 Respiratory Virus Panel (PCR) (JOHNNY) - Final, Complete Human Rhinovirus/Enterovirus 03/30/20 Blood Culture, Received Pending 03/30/20 Blood Culture, Received Pending ASSESSMENT: Ms. Schilling is a 64-year-old with a hx of COPD, O2 dependence, HFpEF, JIGNESH, HTN & obesity who presented w dyspnea and will be admitted for management of sepsis 2/2 enterovirus & acute COPD. PLAN: 1. Sepsis 2/2 Enterovirus SIRS criteria include: HR >90 / RR >20 Lactic acid <2 She is full code Plan: NEW2S Score = 7 points = high risk = continuos monitoring recommended therefore will admit to PCU / telemetry / no IVF needed at this time bc of BP is elevated /f/u blood cx / Acetaminophen PRN for fever / target MAP at least 65 to 70 mmHG / f/u Is and Os with target UOP of at least 0.5 ml/kg/H / target serum glucose 140-180 while acutely ill 2. Acute COPD with Acute on chronic hypoxic respiratory failure At baseline she has chronic oxygen-dependent respiratory failure The exacerbation is 2/2 Enterovirus Chest x-ray unremarkable VBG showed hypoxia Plan: supplemental O2 / continuous pulse oximetry / elevate HOB / aspiration precautions / will give one dose of Solumedrol now / Dunebs Q6H, albuterol Q1HP, Prednisone + PPI/ Tessalon pearls / refer to Home Care Attendant for repeat PFTs and to Pulmonary Rehab when ready for d/c 3. JIGNESH Plan: nocturnal CPAP 6cm H20 w supplemental O2 4.Chronic Grade 2 diastolic CHF / Chronic hypertension Euvolemic Plan: Resume Lasix 5. NIDDM A1C 6.9% May 2019 Plan: she declined a diabetic diet / f/u repeat A1C / bc she is on steroids will monitor FSBS Q6H and order SSI w hypoglycemia protocol 6.Class 3 Obesity BMI 38 complicate's care Plan: follow up with PCP for dietitian consult and to discuss exercise re commendation DVT prophylaxis with lovenox Disposition likely home after more than 2 midnight stay Home Medications Scheduled Aspirin (Aspirin EC) 81 Mg Tabec, 81 MG PO DAILY Budesonide/Formoterol (Symbicort 160-4.5 Mcg Inhaler) 6 Gm Hfa.aer.ad, 2 PUFF INH BID Fluticasone Propionate (Flonase Allergy Relief) 9.9 Ml [place].susp, 2 SPRAYS NA DAILY Furosemide (Furosemide) 40 Mg Tab, 40 MG PO DAILY Guaifenesin (Mucinex) 600 Mg Tab.er.12h, 600 MG PO BID Lanolin Alcohol/Mo/W.pet/[place] (Eucerin Creme) 454 Gm Cream..g., 1 DOSE TOP QHS APPLIES TO ELBOWS AND COVERS THEM TO REMAIN ON OVERNIGHT Nicotine (Nicotine Patch) 21 Mg Patch.td24, 1 PATCH TOP DAILY APPLIES TO ARMS OR CHEST Umeclidinium [place] (Incruse Ellipta) 62.5 Mcg Blst.w.dev, 1 PUFF INH DAILY Scheduled PRN Albuterol Sulf (Albuterol Sulfate) 2.5 Mg/3 Ml Nebu, 2.5 MG INH Q4H PRN for [place] RTNESS OF BREATH Albuterol Sulfate (Proair Hfa) 8.5 Gm Hfa.aer.ad, 2 PUFF INH Q4H PRN for SHORTNESS OF BREATH Tramadol HCl (Tramadol HCl) 50 Mg Tablet, 50 MG PO QID PRN for PAIN Allergies Coded Allergies: Penicillins (Verified Allergy, Intermediate, HIVES, 05/08/19) pt has had cefdinir in the past Quinolones (Verified Allergy, Intermediate, RASH, 05/08/19) metronidazole (Verified Allergy, Mild, itching, 05/08/19) Sulfa (Sulfonamide Antibiotics) (Verified Adverse Reaction, Intermediate, VOMITING, BLISTERS, TACHYCARDIA, 05/08/19) Tetracyclines (Verified Adverse Reaction, Intermediate, TACHYCARDIA, BLISTERS, HIVES, 05/08/19) aripiprazole (Verified Adverse Reaction, Intermediate, TACHYCARDIA, 05/08/19) venlafaxine (Verified Adverse Reaction, Mild, INCREASED HR, 05/08/19) Macrolide Antibiotics (Verified Adverse Reaction, Unknown, ITCHY, HIVES, 05/08/19) HAS TAKEN AZITHROMYCIN W/O PROBLEM A-FIB/CHADSVASC A-FIB History Current/History of A-Fib/PAF?: No Current PO Anticoag Therapy: No MARILYN CARO MD Mar 30, 2020 05:22
[2020-03-30] MEDS ORDERED: methylPREDNISolone 125MG 2ML VIAL IV STA (05:23)
[2020-03-30] MEDS ORDERED: GLUCAGON INJ 1MG VIAL SC PRN (05:30)
[2020-03-30] MEDS ORDERED: ALBUTEROL SULFATE 2.5 MG/0.5 ML INH NEB SOLN NEB PRN (05:30)
[2020-03-30] MEDS ORDERED: GLUCOSE 4GM CHEW TABLET PO PRN (05:30)
[2020-03-30] MEDS ORDERED: MOM 30ML SUSPENSION UDC PO PRN (05:30)
[2020-03-30] MEDS ORDERED: MAALOX 30 ML SUSP *UDC PO PRN (05:30)
[2020-03-30] MEDS ORDERED: DEXTROSE 50% 50 ML SYRINGE IV PRN (05:30)
[2020-03-30] MEDS ORDERED: INCR1INH INH (05:42)
[2020-03-30] MEDS ORDERED: MUCI600T31 PO (05:42)
[2020-03-30] MEDS ORDERED: SYMB16INH INH (05:42)
[2020-03-30] MEDS ORDERED: PROAAER10 INH (05:42)
[2020-03-30] MEDS ORDERED: HumaLOG INSULIN (NovoLOG) PER UNIT SC SCH (06:00)
[2020-03-30 06:03] LABS: HEMOGLOBIN A1c 6.9 %
[2020-03-30] MEDS ORDERED: BENZONATATE 100 MG CAP PO PRN (06:30)
[2020-03-30] MEDS ORDERED: CALCIUM CARBONATE 500 MG CHEW U/D PO PRN (06:30)
[2020-03-30] MEDS ORDERED: predniSONE 20 MG TAB PO SCH (09:00)
[2020-03-30] MEDS: methylPREDNISolone 40MG 1ML VIAL IV SCH ×2 (09:01→17:40)
[2020-03-30] MEDS: ENOXAPARIN 40MG/0.4ML SYRINGE (J1650 PER 10MG) SC SCH (09:01)
[2020-03-30] MEDS: FUROSEMIDE 40 MG TAB PO SCH (09:02)
[2020-03-30] MEDS: PANTOPRAZOLE 40MG TAB (PROTONIX) PO SCH (09:02)
[2020-03-30] MEDS: guaiFENesin ER 600 MG TAB PO SCH ×2 (09:02→21:29)
[2020-03-30] MEDS: IPRATROPIUM 0.5MG/ALBUTEROL 2.5MG INH SOL UD 3ML (DUONEB) NEB SCH ×3 (09:14→19:38)
--- NOTE | 2020-03-30 09:50 | IPNPDOC ---
Text Note Date of Service The patient was seen on 03/30/20. NOTE Subjective: Patient is a 64-year-old female with a PMHx of COPD with Chronic hypoxia (2L O2), JIGNESH on CPAP, Diastolic CHF (Grade 2), Moderate Pulmonary HTN, HTN, NIDDM2 (not on medications), Obesity, GERD who presents to the hospital with complaints of shortness of breath has been progressive over the last 3 months. To emergency room, patient was found to have wheezing and respiratory panel was positive for enterovirus. Patient was seen and examined at the bedside. Currently patient reports some improvement of her breathing. Denies any palpitations. Reports a nonproductive cough. Reports left and right-sided chest pain upon coughing. Patient denies any nausea, vomiting, abdominal pain, diarrhea, or urinary discomfort. Objective: Vitals (See below) General: Lying in bed, no acute distress, comfortable, AAOx3 HEENT: NC, AT CVS: +S1S2 Lungs: Fair air entry b/l, bilateral expiratory wheezing noted. No rhonchi or cr ackles Abdomen: Soft, ND, mild suprapubic tenderness Extremities: - Edema, - Calf tenderness Assessment and plan: Acute exacerbation of COPD with Acute on chronic hypoxia - likely 2/2 Enterovirus - Currently patient reports that she still expressing some shortness of breath and a nonproductive cough - Patient is currently requiring 4 L of oxygen up from her baseline of 2 L - Physical reveals expiratory wheezing bilaterally - Respiratory panel positive for enterovirus - CXR 03/30: No evidence of acute pleural or parenchymal disease. - Will adjust steroids to Solumedrol - Will add Guaifenesin / Incentive spirometry / Acapella - c/w Inhaled therapy as ordered JIGNESH on CPAP - Allow home CPAP use while inpatient Chronic Diastolic CHF (Grade 2) / Moderate Pulmonary HTN - No evidence of exacerbation - c/w Furosemide HTN - BP well controlled - c/w Furosemide NIDDM2 - Patient does not take any medications outside the hospital - c/w ISS Obesity - BMI of 39.5 - Contin getting medical care GERD - c/w Protonix DVT prophylaxis - c/w Lovenox Disposition: - Awaiting clinical improvement VS,Fishbone, I+O VS, Fishbone, I+O Laboratory Tests 03/30/20 02:57 Vital Signs Date Time Temp Pulse Resp B/P (MAP) Pulse Ox O2 Delivery O2 Flow Rate FiO2 03/30/20 08:43 4.0 03/30/20 08:00 97.7 107 20 137/73 (94) 92 Nasal Cannula ELVIS VILLANUEVA MD Mar 30, 2020 09:50
[2020-03-30] MEDS: HumaLOG INSULIN (NovoLOG) PER UNIT SC SCH ×3 (12:41→21:29)
[2020-03-30] MEDS: NICOTINE 21MG/24HR 1 EA TRANSDERMAL TD SCH (21:29)
[2020-03-30] MEDS: cefTRIAXone SOD 1 GM in D5W MINI-BAG PLUS 50 ML IV SCH (21:30)
[2020-03-31] VITALS (24 sets, daily range): BP systolic 114–200; BP diastolic 60–98; O2SAT 91–99
[2020-03-31] MEDS: methylPREDNISolone 40MG 1ML VIAL IV SCH ×3 (01:18→17:32)
[2020-03-31] MEDS: IPRATROPIUM 0.5MG/ALBUTEROL 2.5MG INH SOL UD 3ML (DUONEB) NEB SCH ×4 (02:00→20:02)
[2020-03-31 05:35] LABS: HEMATOCRIT 45.4 % (36.0-47.0); HEMOGLOBIN 14.5 g/dl (12.0-15.5); MEAN CORPUSCULAR HEMOGLOBIN 28.4 pg (27.0-33.0); MEAN CORPUSCULAR HGB CONC 31.9 g/dl (32.0-36.5); PLATELET COUNT, AUTOMATED 257 10^3/uL (150-450); WHITE BLOOD COUNT 14.9 10^3/uL (4.0-10.0)
[2020-03-31 06:16] LABS: CALCIUM LEVEL 9.7 MG/DL (8.8-10.2); CREATININE FOR GFR 1.15 MG/DL (0.55-1.30); GLOMERULAR FILTRATION RATE 50.7 (>45); MAGNESIUM LEVEL 2.4 MG/DL (1.8-2.4); POTASSIUM SERUM 4.5 MEQ/L (3.5-5.1)
[2020-03-31 07:55] LABS: C REACTIVE PROTEIN QUANTITATIV 1.42 MG/DL (0.00-0.30)
[2020-03-31] MEDS: FUROSEMIDE 40 MG TAB PO SCH (08:03)
[2020-03-31] MEDS: guaiFENesin ER 600 MG TAB PO SCH ×2 (08:04→20:22)
[2020-03-31] MEDS: PANTOPRAZOLE 40MG TAB (PROTONIX) PO SCH (08:04)
[2020-03-31] MEDS: NICOTINE 21MG/24HR 1 EA TRANSDERMAL TD SCH (08:05)
[2020-03-31] MEDS: ENOXAPARIN 40MG/0.4ML SYRINGE (J1650 PER 10MG) SC SCH (08:05)
[2020-03-31] MEDS: HumaLOG INSULIN (NovoLOG) PER UNIT SC SCH ×4 (08:05→20:22)
[2020-03-31 08:57] LABS: ERYTHROCYTE SEDIMENTATION RATE 6 mm/hr (0-30)
--- NOTE | 2020-03-31 09:49 | IPNPDOC ---
Text Note Date of Service The patient was seen on 03/31/20. NOTE Subjective: Patient is a 64-year-old female with a PMHx of COPD with Chronic hypoxia (2L O2), JIGNESH on CPAP, Diastolic CHF (Grade 2), Moderate Pulmonary HTN, HTN, NIDDM2 (not on medications), Obesity, GERD who presents to the hospital with complaints of shortness of breath has been progressive over the last 3 months. To emergency room, patient was found to have wheezing and respiratory panel was positive for enterovirus. Patient was seen and examined at the bedside. Patient has had an uneventful evening. Reports some shortness of breath and cough was unable to tolerate the hospital CPAP will be bringing in her own CPAP today. Denies any nausea, vomiting, abdominal pain, diarrhea, or urinary discomfort. Objective: Vitals (See below) General: Lying in bed, appears comfortable, speaking in full sentences, AAOx3 HEENT: NC, AT CVS: +S1S2 Lungs: Air entry is fair bilaterally. There is diffuse expiratory wheezing noted bilaterally. No rhonchi or crackles Abdomen: Abdomen remains soft without distention or tenderness Extremities: Lower extremities are free of any pitting edema, - Calf tenderness Assessment and plan: Acute exacerbation of COPD with Acute on chronic hypoxia - likely 2/[address] - Currently patient reports that she still expressing some shortness of breath and a nonproductive cough - Patient oxygen requirement has improved and is now back down to 2 L - Physical as reveal expiratory wheezing - Respiratory panel positive for enterovirus - CXR 03/30: No evidence of acute pleural or parenchymal disease. - c/w Solumedrol; will begin to taper her dose tomorrow - c/w Guaifenesin / Incentive spirometry / Acapella - c/w Inhaled therapy as ordered Positive blood culture (1 of 2) - likely 2/2 contaminant - Remains afebrile and hemodynamically stable - Blood cultures 03/30: Preliminary positive gram-positive cocci in clusters - Repeat blood cultures today UTI - Patient complained of suprapubic tenderness - UA consistent with infection. Urine culture 03/30: Pending - Continue with ceftriaxone (Day #2) JIGNESH on CPAP - Allow home CPAP use while inpatient - Patient reported that she will have a friend bring in her CPAP device for today Chronic Diastolic CHF (Grade 2) / Moderate Pulmonary HTN - No evidence of exacerbation - c/w Furosemide HTN - BP well controlled - c/w Furosemide NIDDM2 - Patient does not take any medications outside the hospital - c/w ISS Obesity - BMI of 39.5 - Contin getting medical care GERD - c/w Protonix DVT prophylaxis - c/w Lovenox Disposition: - Awaiting clinical improvement VS,Jose, I+O VS, Jose, I+O Laboratory Tests 03/31/20 04:54 Vital Signs Date Time Temp Pulse Resp B/P (MAP) Pulse Ox O2 Delivery O2 Flow Rate FiO2 03/31/20 08:00 97.3 104 20 114/71 (85) 95 Nasal Cannula 2.0 I&O- Last 24 Hours up to 6 AM 03/31/20 05:59 Intake Total 660 ml Output Total 250 ml Balance 410 ml ELVIS VILLANUEVA MD Mar 31, 2020 09:49
[2020-03-31] MEDS: cefTRIAXone SOD 1 GM in D5W MINI-BAG PLUS 50 ML IV SCH (17:32)
[2020-03-31] MEDS ORDERED: amLODIPine 5 MG TAB PO ONE (20:45)
[2020-04-01] VITALS (10 sets, daily range): BP systolic 125–164; BP diastolic 63–86; O2SAT 90–95
[2020-04-01] MEDS: methylPREDNISolone 40MG 1ML VIAL IV SCH (00:58)
[2020-04-01] MEDS: IPRATROPIUM 0.5MG/ALBUTEROL 2.5MG INH SOL UD 3ML (DUONEB) NEB SCH (02:00)
[2020-04-01 05:53] LABS: HEMATOCRIT 44.3 % (36.0-47.0); MEAN CORPUSCULAR HEMOGLOBIN 28.1 pg (27.0-33.0); MEAN CORPUSCULAR HGB CONC 31.6 g/dl (32.0-36.5); MEAN CORPUSCULAR VOLUME 88.8 fl (80.0-96.0); PLATELET COUNT, AUTOMATED 274 10^3/uL (150-450); RED BLOOD COUNT 4.99 10^6/uL (4.00-5.40); WHITE BLOOD COUNT 17.4 10^3/uL (4.0-10.0)
[2020-04-01 06:14] LABS: CALCIUM LEVEL 9.6 MG/DL (8.8-10.2); CREATININE FOR GFR 1.28 MG/DL (0.55-1.30); GLOMERULAR FILTRATION RATE 44.8 (>45); POTASSIUM SERUM 4.6 MEQ/L (3.5-5.1)
[2020-04-01] MEDS ORDERED: LEVALBUTEROL 1.25 MG/0.5 ML CONCENTRATE NEB INH PRN (07:45)
[2020-04-01] MEDS: LEVALBUTEROL 1.25 MG/0.5 ML CONCENTRATE NEB INH SCH ×4 (07:48→20:06)
[2020-04-01] MEDS: predniSONE 20 MG TAB PO SCH (08:01)
[2020-04-01] MEDS: FUROSEMIDE 40 MG TAB PO SCH (08:02)
[2020-04-01] MEDS: guaiFENesin ER 600 MG TAB PO SCH ×2 (08:02→20:45)
[2020-04-01] MEDS: ENOXAPARIN 40MG/0.4ML SYRINGE (J1650 PER 10MG) SC SCH (08:03)
[2020-04-01] MEDS: NICOTINE 21MG/24HR 1 EA TRANSDERMAL TD SCH (08:03)
[2020-04-01] MEDS: HumaLOG INSULIN (NovoLOG) PER UNIT SC SCH ×4 (08:03→20:45)
[2020-04-01] MEDS: PANTOPRAZOLE 40MG TAB (PROTONIX) PO SCH (08:14)
[2020-04-01] MEDS: ACETAMINOPHEN TAB 650MG DOSE (2X325MG) PO PRN (08:27)
--- NOTE | 2020-04-01 08:54 | ECGEPIP ---
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
--- NOTE | 2020-04-01 10:22 | IPNPDOC ---
Text Note Date of Service The patient was seen on 04/01/20. NOTE Subjective: Patient is a 64-year-old female with a PMHx of COPD with Chronic hypoxia (2L O2), JIGNESH on CPAP, Diastolic CHF (Grade 2), Moderate Pulmonary HTN, HTN, NIDDM2 (not on medications), Obesity, GERD who presents to the hospital with complaints of shortness of breath has been progressive over the last 3 months. To emergency room, patient was found to have wheezing and respiratory panel was positive for enterovirus. Patient was seen and examined at the bedside. Currently patient reports that her breathing is doing better. They deny any nausea, vomiting A to report some congestion. Denies any chest pain or palpitations do report a cough. Denies any nausea, vomiting, abdominal pain, diarrhea, or urinary discomfort. Objective: Vitals (See below) General: Sitting up in chair, appears to be comfortable, speaking in full sentences, AAOx3 HEENT: NC, AT CVS: +S1S2 Lungs: Air entry is fair bilaterally. There is improvement of wheezing significantly. No rhonchi or crackles Abdomen: Abdomen soft, obese, nondistended and nontender Extremities: No edema is appreciated at lower extremities, - Calf tenderness Assessment and plan: Acute exacerbation of COPD with Acute on chronic hypoxia - likely 2/2 Enterovirus - Patient has reported improvement of their breathing / still experiences some congestion - On baseline level of oxygen at 2 liters - Physical with improvement of wheezing - Respiratory panel positive for enterovirus - CXR 03/30: No evidence of acute pleural or parenchymal disease. - Will start Prednisone; Will DC Solumedrol - c/w Guaifenesin / Incentive spirometry / Acapella - c/w Inhaled therapy as ordered Positive blood culture (1 of 2) - likely 2/2 contaminant - Remains afebrile and hemodynamically stable - Blood cultures 03/30: (1 of 2): Staphylococcus Warneri - Blood cultures 03/31: No growth at 24 hours UTI - Patient complained of suprapubic tenderness - UA consistent with infection. Urine culture 03/30: Negative - c/w ceftriaxone (Day #3) JIGNESH on CPAP - Allow home CPAP use while inpatient - Patient reported that she will have a friend bring in her CPAP device for today Chronic Diastolic CHF (Grade 2) / Moderate Pulmonary HTN - No evidence of exacerbation - c/w Furosemide HTN - BP well controlled - c/w Furosemide NIDDM2 - Patient does not take any medications outside the hospital - c/w ISS Obesity - BMI of 39.5 - Contin getting medical care GERD - c/w Protonix DVT prophylaxis - c/w Lovenox Disposition: - Anticipate discharge within the next 24 hours VS,Fishbone, I+O VS, Fishbone, I+O Laboratory Tests 04/01/20 05:38 Vital Signs Date Time Temp Pulse Resp B/P (MAP) Pulse Ox O2 Delivery O2 Flow Rate FiO2 04/01/20 08:00 96.4 101 22 138/86 (103) 95 NIPPV (BIPAP/CPAP) 04/01/20 06:00 4.0 I&O- Last 24 Hours up to 6 AM 04/01/20 06:00 Intake Total 350 ml Output Total 250 ml Balance 100 ml ELVIS VILLANUEVA MD Apr 01, 2020 10:22
[2020-04-01] MEDS: traMADol 50 MG TAB PO PRN ×2 (16:37→22:49)
[2020-04-01] MEDS: cefTRIAXone SOD 1 GM in D5W MINI-BAG PLUS 50 ML IV SCH (17:29)
[2020-04-01] MEDS: FLUTICASONE PROP 0.05% NASAL SPRAY 16 GM (FLONASE) NARES SCH (20:45)
[2020-04-02] VITALS: BP 148/73
[2020-04-02 04:00] VITALS: BP 130/87
[2020-04-02 04:48] LABS: HEMATOCRIT 42.8 % (36.0-47.0); HEMOGLOBIN 13.6 g/dl (12.0-15.5); MEAN CORPUSCULAR HEMOGLOBIN 28.6 pg (27.0-33.0); MEAN CORPUSCULAR HGB CONC 31.8 g/dl (32.0-36.5); MEAN CORPUSCULAR VOLUME 89.9 fl (80.0-96.0); PLATELET COUNT, AUTOMATED 247 10^3/uL (150-450); RED BLOOD COUNT 4.76 10^6/uL (4.00-5.40); WHITE BLOOD COUNT 12.4 10^3/uL (4.0-10.0)
[2020-04-02 05:09] LABS: CREATININE FOR GFR 1.24 MG/DL (0.55-1.30); GLOMERULAR FILTRATION RATE 46.5 (>45); POTASSIUM SERUM 3.9 MEQ/L (3.5-5.1)
[2020-04-02] MEDS: traMADol 50 MG TAB PO PRN (05:47)
[2020-04-02] MEDS: LEVALBUTEROL 1.25 MG/0.5 ML CONCENTRATE NEB INH SCH ×2 (07:43→11:32)
[2020-04-02 08:00] VITALS: BP 138/72
[2020-04-02] MEDS ORDERED: PRED10TA2 PO (08:08)
[2020-04-02] MEDS: guaiFENesin ER 600 MG TAB PO SCH (08:21)
[2020-04-02] MEDS: PANTOPRAZOLE 40MG TAB (PROTONIX) PO SCH (08:22)
[2020-04-02] MEDS: NICOTINE 21MG/24HR 1 EA TRANSDERMAL TD SCH (08:22)
[2020-04-02] MEDS: predniSONE 20 MG TAB PO SCH (08:22)
[2020-04-02] MEDS: FUROSEMIDE 40 MG TAB PO SCH (08:22)
[2020-04-02] MEDS: ENOXAPARIN 40MG/0.4ML SYRINGE (J1650 PER 10MG) SC SCH (08:23)
[2020-04-02] MEDS: HumaLOG INSULIN (NovoLOG) PER UNIT SC SCH ×2 (08:24→12:17)
[2020-04-02] MEDS: ACETAMINOPHEN TAB 650MG DOSE (2X325MG) PO PRN (08:28)
[2020-04-02] MEDS: FLUTICASONE PROP 0.05% NASAL SPRAY 16 GM (FLONASE) NARES SCH (09:00)
--- NOTE | 2020-04-02 09:59 | DS.PDOC ---
Discharge Summary General Date of Admission Mar 30, 2020 at 05:23 Date of Discharge 04/02/2020 Discharge Summary PROCEDURES PERFORMED DURING STAY: [None]. ADMITTING DIAGNOSES / DISCHARGE DIAGNOSES: Acute exacerbation of COPD with Acute on chronic hypoxia - likely 2/2 Enterovirus Positive blood culture (1 of 2) - likely 2/2 contaminant s/p UTI JIGNESH on CPAP Chronic Diastolic CHF (Grade 2) / Moderate Pulmonary HTN HTN NIDDM2 Obesity GERD DVT prophylaxis COMPLICATIONS/CHIEF COMPLAINT: Shortness of breath HISTORY OF PRESENT ILLNESS: Patient is a 64-year-old female with a PMHx of COPD with Chronic hypoxia (2L O2), JIGNESH on CPAP, Diastolic CHF (Grade 2), Moderate Pulmonary HTN, HTN, NIDDM2 (not on medications), Obesity, GERD who presents to the hospital with complaints of shortness of breath has been progressive over the last 3 months. To emergency room, patient was found to have wheezing and respiratory panel was positive for enterovirus. HOSPITAL COURSE: Acute exacerbation of COPD with Acute on chronic hypoxia - likely 2/2 Enterovirus - Patient has reported significant improvement of the breathing - Has returned to baseline level of oxygen at 2 liters / Physical with mild whee zing only - Respiratory panel positive for enterovirus - CXR 03/30: No evidence of acute pleural or parenchymal disease. - c/w Prednisone - will provide taper on discharge; s/p Solumedrol - c/w Guaifenesin / Incentive spirometry / Acapella - c/w Inhaled therapy as ordered Positive blood culture (1 of 2) - likely 2/2 contaminant - Remains afebrile and hemodynamically stable - Blood cultures 03/30: (1 of 2): Staphylococcus Warneri - Blood cultures 03/31: No growth at 48 hours s/p UTI - Patient complained of suprapubic tenderness - UA consistent with infection. Urine culture 03/30: Negative - Will DC ceftriaxone (Day #3) JIGNESH on CPAP - Allow home CPAP use while inpatient - Patient reported that she will have a friend bring in her CPAP device for today Chronic Diastolic CHF (Grade 2) / Moderate Pulmonary HTN - No evidence of exacerbation - c/w Furosemide HTN - BP well controlled - c/w Furosemide NIDDM2 - Patient does not take any medications outside the hospital - c/w ISS Obesity - BMI of 39.5 - Contin getting medical care GERD - c/w Protonix DVT prophylaxis - c/w Lovenox DISCHARGE MEDICATIONS: Please see below. ALLERGIES: Please see below. PHYSICAL EXAMINATION ON DISCHARGE: Vitals (See below) General: Sitting up in bed, appears comfortable, AAOx3 HEENT: NC, AT CVS: +S1S2 Lungs: Fair air entry b/l, mild wheezing without any rhonchi or rales Abdomen: Soft, ND, NT Extremities: - Edema, - Calf tenderness LABORATORY DATA: Please see below. ACTIVITY: [As tolerated]. DISCHARGE PLAN: Follow-up with primary care provider within the next 7 days Follow-up with dermatology within the next 2 weeks (re: abdominal lesion on LLQ) Remain compliant with treatment plan and medications Return to the ER if you experience any problems DISPOSITION: Home with services DISCHARGE CONDITION: [Stable]. TIME SPENT ON DISCHARGE: 35 minutes. Vital Signs/I&Os Vital Signs Date Time Temp Pulse Resp B/P (MAP) Pulse Ox O2 Delivery O2 Flow Rate FiO2 04/02/20 08:00 96.8 80 20 138/72 (94) 93 Nasal Cannula 04/02/20 04:00 3.0 I&O- Last 24 Hours up to 6 AM 04/02/20 06:00 Intake Total 1420 ml Output Total 1050 ml Balance 370 ml Laboratory Data Labs 24H Laboratory Tests 2 04/01/20 12:05: Bedside Glucose (Misc Panel) 282H 04/01/20 14:28: Bedside Glucose (Misc Panel) 246H 04/01/20 16:39: Bedside Glucose (Misc Panel) 291H 04/01/20 19:31: Bedside Glucose (Misc Panel) 378H 04/02/20 04:23: Nucleated Red Blood Cells % (auto) 0.0, Anion Gap 3L, Glomerular Filtration Rate 46.5, Calcium Level 9.0 CBC/BMP Laboratory Tests 04/02/20 04:23 FSBS Laboratory Tests Test 04/01/20 12:05 04/01/20 14:28 04/01/20 16:39 04/01/20 19:31 Range/Units Bedside Glucose (Misc Panel) 282 246 291 378 80-115 MG/DL Microbiology Microbiology 03/31/20 Blood Culture - Preliminary, Resulted No Growth after 48 hours. All Specime... 03/31/20 Blood Culture - Preliminary, Resulted No Growth after 48 hours. All Specime... 03/30/20 Urine Culture - Final, Complete 03/30/20 Respiratory Virus Panel (PCR) (JOHNNY) - Final, Complete Human Rhinovirus/Enterovirus 03/30/20 Blood Culture - Final, Complete Staphylococcus Warneri 03/30/20 Blood Culture - Preliminary, Resulted No Growth after 72 hours. All specime... Discharge Medications Scheduled Aspirin (Aspirin EC) 81 Mg Tabec, 81 MG PO DAILY, (Reported) Budesonide/Formoterol (Symbicort 160-4.5 Mcg Inhaler) 6 Gm Hfa.aer.ad, 2 PUFF INH BID, (Reported) Fluticasone Propionate (Flonase Allergy Relief) 9.9 Ml [place].susp, 2 SPRAYS NA DAILY, (Reported) Furosemide (Furosemide) 40 Mg Tab, 40 MG PO DAILY, (Reported) Guaifenesin (Mucinex) 600 Mg Tab.er.12h, 600 MG PO BID, (Reported) Lanolin Alcohol/Mo/W.pet/[place] (Eucerin Creme) 454 Gm Cream..g., 1 DOSE TOP QHS, (Reported) APPLIES TO ELBOWS AND COVERS THEM TO REMAIN ON OVERNIGHT Nicotine (Nicotine Patch) 21 Mg Patch.td24, 1 PATCH TOP DAILY, (Reported) APPLIES TO ARMS OR CHEST Prednisone (Prednisone) 10 Mg Tablet, 10 MG PO TAPER Take 4 tabs daily x 3 days, then 3 tabs daily x 3 days, then 2 tabs daily x 3 days, then 1 tab daily x 3 days and stop Umeclidinium [place] (Incruse Ellipta) 62.5 Mcg Blst.w.dev, 1 PUFF INH DAILY, (Reported) Scheduled PRN Albuterol Sulf (Albuterol Sulfate) 2.5 Mg/3 Ml Nebu, 2.5 MG INH Q4H PRN for SHORTNESS OF BREATH, (Reported) Albuterol Sulfate (Proair Hfa) 8.5 Gm Hfa.aer.ad, 2 PUFF INH Q4H PRN for S HORTNESS OF BREATH, (Reported) Tramadol HCl (Tramadol HCl) 50 Mg Tablet, 50 MG PO QID PRN for PAIN, (Reported) Allergies Coded Allergies: Penicillins (Verified Allergy, Intermediate, HIVES, 05/08/19) pt has had cefdinir in the past Quinolones (Verified Allergy, Intermediate, RASH, 05/08/19) metronidazole (Verified Allergy, Mild, itching, 05/08/19) Sulfa (Sulfonamide Antibiotics) (Verified Adverse Reaction, Intermediate, VOMITING, BLISTERS, TACHYCARDIA, 05/08/19) Tetracyclines (Verified Adverse Reaction, Intermediate, TACHYCARDIA, BLISTERS, HIVES, 05/08/19) aripiprazole (Verified Adverse Reaction, Intermediate, TACHYCARDIA, 05/08/19) venlafaxine (Verified Adverse Reaction, Mild, INCREASED HR, 05/08/19) Macrolide Antibiotics (Verified Adverse Reaction, Unknown, ITCHY, HIVES, 05/08/19) HAS TAKEN AZITHROMYCIN W/O PROBLEM ELVIS VILLANUEVA MD Apr 02, 2020 09:59
== END 2020-04-02 15:02 | disposition home or self-care (01) | DRG 191 ==
LOC: M ED 02:48 → M ED INP 05:23 → ENRESERV 06:05 → M PCU 06:40
PROVIDERS: ADMIT Internal Medicine; ATTEND Internal Medicine
DX: J44.1 Chronic obstructive pulmonary disease with (acute) exacerbation (principal); I50.32 Chronic diastolic (congestive) heart failure; N39.0 Urinary tract infection, site not specified; J96.11 Chronic respiratory failure with hypoxia; B34.8 Other viral infections of unspecified site; E66.9 Obesity, unspecified; K21.9 Gastro-esophageal reflux disease without esophagitis; G47.33 Obstructive sleep apnea (adult) (pediatric); I27.20 Pulmonary hypertension, unspecified; I11.0 Hypertensive heart disease with heart failure; E11.9 Type 2 diabetes mellitus without complications; Z68.35 Body mass index [BMI] 35.0-35.9, adult; Z79.82 Long term (current) 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; Z79.899 Other long term (current) drug therapy; Z88.0 Allergy status to penicillin; Z88.2 Allergy status to sulfonamides; Z88.8 Allergy status to other drugs, medicaments and biological substances; Z99.81 Dependence on supplemental oxygen; Z87.891 Personal history of nicotine dependence

== ENCOUNTER → 2020-06-14 | Outpatient (CLI) | payer SELFPAY ==
[~2020-06-14] MED LIST changes: +FAMO40TA3; +INCR1INH INH; +OMEP-218
== END ==
LOC: M LABSMTC 10:11
PROVIDERS: ATTEND Pediatrics
DX: Z20.822 Contact with and (suspected) exposure to COVID-19 (principal)

== ENCOUNTER 2020-06-19 01:06 | Inpatient (IN) | payer OTHER, MEDICAID ==
[~2020-06-19] VITALS: Ht 165.1 cm; Wt 117.6 kg
[~2020-06-19 01:06] MED LIST changes: -FAMO40TA3; -OMEP-218
--- OUTSIDE RECORDS SUMMARY | 2020-06-19 01:13 | CCD ---
Author Author [facility] Organization [facility] Address Unknown Phone Unavailable Care Team Providers Care Top Collar Maker Name Role Phone Freeman Spur, L Samara LABOR AND DELIVERY NURSE Unavailable Unavailable Freeman Spur, L Samara LABOR AND DELIVERY NURSE Unavailable Unavailable Freeman Spur, L Samara LABOR AND DELIVERY NURSE Unavailable Unavailable Jeanne, L Samara LABOR AND DELIVERY NURSE Unavailable Unavailable Jeanne, L Samara LABOR AND DELIVERY NURSE Unavailable Unavailable Jeanne, L Samara LABOR AND DELIVERY NURSE Unavailable Unavailable Jeanne, L Samara LABOR AND DELIVERY NURSE Unavailable Unavailable Jeanne, L Samara LABOR AND DELIVERY NURSE Unavailable Unavailable Jeanne, L Samara LABOR AND DELIVERY NURSE Unavailable Unavailable Jeanne, L Samara LABOR AND DELIVERY NURSE Unavailable Unavailable Jeanne, L Samara LABOR AND DELIVERY NURSE Unavailable Unavailable Freeman Spur, L Samara LABOR AND DELIVERY NURSE Unavailable Unavailable Freeman Spur, L Samara LABOR AND DELIVERY NURSE Unavailable Unavailable Jeanne, L Samara LABOR AND DELIVERY NURSE Unavailable Unavailable Freeman Spur, L Samara LABOR AND DELIVERY NURSE Unavailable Unavailable Jeanne, L Samara LABOR AND DELIVERY NURSE Unavailable Unavailable Freeman Spur, L Samara LABOR AND DELIVERY NURSE Unavailable Unavailable Freeman Spur, L Samara LABOR AND DELIVERY NURSE Unavailable Unavailable Jeanne, L Samara LABOR AND DELIVERY NURSE Unavailable Unavailable Jeanne, L Samara LABOR AND DELIVERY NURSE Unavailable Unavailable Jeanne, L Samara LABOR AND DELIVERY NURSE Unavailable Unavailable Jeanne, L Samara LABOR AND DELIVERY NURSE Unavailable Unavailable Freeman Spur, L Samara LABOR AND DELIVERY NURSE Unavailable Unavailable Freeman Spur, L Samara LABOR AND DELIVERY NURSE Unavailable Unavailable Jeanne, L Samara LABOR AND DELIVERY NURSE Unavailable Unavailable Jeanne, L Samara LABOR AND DELIVERY NURSE Unavailable Unavailable Jeanne, L Samara LABOR AND DELIVERY NURSE Unavailable Unavailable Freeman Spur, L Samara LABOR AND DELIVERY NURSE Unavailable Unavailable Jeanne, L Samara LABOR AND DELIVERY NURSE Unavailable Unavailable Freeman Spur, L Samara LABOR AND DELIVERY NURSE Unavailable Unavailable Jeanne, L Samara LABOR AND DELIVERY NURSE Unavailable Unavailable Jeanne, L Samara LABOR AND DELIVERY NURSE Unavailable Unavailable Freeman Spur, L Samara LABOR AND DELIVERY NURSE Unavailable Unavailable Freeman Spur, L Samara LABOR AND DELIVERY NURSE Unavailable Unavailable Jeanne, L Samara LABOR AND DELIVERY NURSE Unavailable Unavailable Karo, R Felipe DO Unavailable Unavailable Karo, R Felipe DO Unavailable Unavailable Karo, R Felipe DO Unavailable Unavailable Karo, R Felipe DO Unavailable Unavailable Karo, R Felipe DO Unavailable Unavailable Karo, R Felipe DO Unavailable Unavailable Karo, R Felipe DO Unavailable Unavailable Karo, R Felipe DO Unavailable Unavailable Karo, R Felipe DO Unavailable Unavailable Karo, R Felipe DO Unavailable Unavailable Karo, R Felipe DO Unavailable Unavailable Karo, R Felipe DO Unavailable Unavailable Karo, R Felipe DO Unavailable Unavailable Karo, R Felipe DO Unavailable Unavailable Karo, R Felipe DO Unavailable Unavailable Karo, R Felipe DO Unavailable Unavailable Karo, R Felipe DO Unavailable Unavailable Karo, R Felipe DO Unavailable Unavailable Karo, R Felipe DO Unavailable Unavailable Karo, R Felpie DO Unavailable Unavailable Karo, R Felipe DO Unavailable Unavailable Karo, R Felipe DO Unavailable Unavailable Karo, R Felipe DO Unavailable Unavailable Karo, R Felipe DO Unavailable Unavailable Karo, R Felipe DO Unavailable Unavailable Karo, R Felipe DO Unavailable Unavailable Karo, R Felipe DO Unavailable Unavailable Karo, R Felipe DO Unavailable Unavailable Karo, R Felipe DO Unavailable Unavailable Karo, R Felipe DO Unavailable Unavailable Karo, R Felipe DO Unavailable Unavailable Karo, R Felipe DO Unavailable Unavailable Karo, R Felipe DO Unavailable Unavailable Karo, R Felipe DO Unavailable Unavailable Karo, R Felipe DO Unavailable Unavailable Karo, R Felipe DO Unavailable Unavailable Karo, R Felipe DO Unavailable Unavailable Karo, R Felipe DO Unavailable Unavailable Karo, R Felipe DO Unavailable Unavailable Karo, R Felipe DO Unavailable Unavailable Karo, R Felipe DO Unavailable Unavailable Karo, R Felipe DO Unavailable Unavailable Karo, R Felipe DO Unavailable Unavailable Karo, R Felipe DO Unavailable Unavailable Karo, R Felipe DO Unavailable Unavailable Karo, R Felipe DO Unavailable Unavailable Karo, R Felipe DO Unavailable Unavailable Karo, R Felipe DO Unavailable Unavailable Karo, R Felipe DO Unavailable Unavailable Karo, R Felipe DO Unavailable Unavailable Karo, R Felipe DO Unavailable Unavailable Karo, R Felipe DO Unavailable Unavailable Karo, R Felipe DO Unavailable Unavailable Karo, R Felipe DO Unavailable Unavailable Karo, R Felipe DO Unavailable Unavailable Karo, R Felipe DO Unavailable Unavailable Karo, R Felipe DO Unavailable Unavailable Karo, R Felipe DO Unavailable Unavailable Karo, R Felipe DO Unavailable Unavailable Karo, R Felipe DO Unavailable Unavailable Karo, R Felipe DO Unavailable Unavailable Karo, R Felipe DO Unavailable Unavailable Karo, R Felipe DO Unavailable Unavailable Karo, R Felipe DO Unavailable Unavailable Karo, R Felipe DO Unavailable Unavailable Karo, R Felipe DO Unavailable Unavailable Karo, R Felipe DO Unavailable Unavailable Karo, R Felipe DO Unavailable Unavailable Karo, R Felipe DO Unavailable Unavailable Karo, R Felipe DO Unavailable Unavailable Karo, R Felipe DO Unavailable Unavailable Karo, R Felipe DO Unavailable Unavailable Karo, R Felipe DO Unavailable Unavailable Re-disclosure Warning The records that you are about to access may contain information from federally-assisted alcohol or drug abuse programs. If such information is present, then the following federally mandated warning applies: This information has been disclosed to you from records protected by federal confidentiality rules (42 CFR part 2). The federal rules prohibit you from making any further disclosure of this information unless further disclosure is expressly permitted by the written consent of the person to whom it pertains or as otherwise permitted by 42 CFR part 2. A general authorization for the release of medical or other information is NOT sufficient for this purpose. The Federal rules restrict any use of the information to criminally investigate or prosecute any alcohol or drug abuse patient.The records that you are about to access may contain highly sensitive health information, the redisclosure of which is protected by Article 27-F of the [facility] Public Health law. If you continue you may have access to information: Regarding HIV / AIDS; Provided by facilities licensed or operated by the [facility] Office of Mental Health; or Provided by the [facility] Office for People With Developmental Disabilities. If such information is present, then the following [facility] mandated warning applies: This information has been disclosed to you from confidential records which are protected by state law. State law prohibits you from making any further disclosure of this information without the specific written consent of the person to whom it pertains, or as otherwise permitted by law. Any unauthorized further disclosure in violation of state law may result in a fine or correction sentence or both. A general authorization for the release of medical or other information is NOT sufficient authorization for further disc losure. Advance Directives Directive Description Patrol Mother Sales Development Specialist Status Observation Descr iption Data Source(s) 36739-6 HIPAA - Effective on 06/13/2019. Expiration date u nspecified Elizabeth Schilling completed [employer] ([facility]) Family History Family Member Name Family Member Gender Family Member Status Date o f Status Description Data Source(s) Unknown Unknown Problem [facility] ([facility]) Encounters Encounter Providers Location Date Indications Data Source(s ) Outpatient Referrer: Samara Angel NP 06/03/2020 08:16:0 2 AM EST [facility] Outpatient<td><content ID="_[id number]">Office Visit</content>
<content><content styleCode="xLabel xSecondary">Encounter Reason</content>: <content ID="_[id number]" styleCode="xSecondary">COPD - The primary physician is Dr. Bacilio Hughes. The last office visit was 7 month(s) ago. Management changes made at the last visit include none (wanted LAMA added, she doesn't recall this and isn't on it). The Gold Classification is Stage 3: Severe COPD. Symptoms include dyspnea on exertion, productive cough and clear sputum production (thick white, uses acapella bid which helps her raise mucous), while symptoms do not include wheezing. Onset was gradual year(s) ago (reports asthma dx as a child, copd dx many years ago). The episodes occur daily. The patient describes this as unchanged. Symptoms are exacerbated by activity and recumbency. Symptoms are relieved by inhaler use, use of a nebulizer ( albuterol), supplemental oxygen and rest. Associated symptoms include upper respiratory infection symptoms, while associated symptoms do not include fever, hemoptysis or chest pain. Current treatment includes inhaled albuterol, inhaled long-acting beta-2 agonists, inhaled corticosteroids (symbicort 160/4.5 2 puffs bid) and supplemental oxygen (BIPAP 21/15 with 8 LPM O2 HS and 2 LPM days). By report there is good compliance with treatment, good tolerance of treatment and fair symptom control. The frequency of exacerbations has been times a year (several x/year). Pertinent medical history includes smoking (currently) (did quit for awhile in 2018, now on/off- approx 5 cig/day), oxygen dependency, asthma and obstructive sleep apnea (on bipap/oxygen overnight. sleeps better with use), while pertinent medical history does not include prior intubation and ventilator therapy, tracheostomy, pneumonia, congestive heart failure or lung cancer. Past evaluation has included chest CT (CTA 05/29/18- no PE. noted to have advanced copd/emphysema and bronchiectasis).</content></content>
<content><content styleCode="xSecondary xLabel">Encounter Diagnosis</content>: <content [id number]" styleCode="xSecondary">COPD (CHRONIC OBSTRUCTIVE PULMONARY DISEASE)</content><content styleCode="xSecondary">, </content><content [id number]" styleCode="xSecondary">JIGNESH (OBSTRUCTIVE SLEEP APNEA)</content><content styleCode="xSecondary">, </content><content [id number]" styleCode="xSecondary">BRONCHIECTASIS</content><content styleCode="xSecondary">, </content><content ID="_[id number]" styleCode="xSecondary">MORBID OBESITY</content><content styleCode="xSecondary">, </content><content [id number]" styleCode="xSecondary">TOXIC EFFECT OF TOBACCO</content></content></td><td><content styleCode="xSecondary">25-Dec-2019 13:00 </content><content styleCode="xLabel xSecondary"> To </content><content styleCode="xSecondary">25-Dec-2019 13:25</content>
<content styleCode="xSecondary">[place] [facility]</content></td><td></td> [facility] 12/25/2019 01:00:00 PM EDT - 12/25/2019 01:25:48 PM EDT COPD - The primary physician is Dr. Bacilio Hughes. The last office visit was 7 month(s) ago. Management changes made at the last visit include none (wanted LAMA added, she doesn't recall this and isn't on it). The Gold Classification is Stage 3: Severe COPD. Symptoms include dyspnea on exertion, productive cough and clear sputum production (thick white, uses acapella bid which helps her raise mucous), while symptoms do not include wheezing. Onset was gradual year(s) ago (reports asthma dx as a child, copd dx many years ago). The episodes occur daily. The patient describes this as unchanged. Symptoms are exacerbated by activity and recumbency. Symptoms are relieved by inhaler use, use of a nebulizer (albuterol), supplemental oxygen and rest. Associated symptoms include upper respiratory infection symptoms, while associated symptoms do not include fever, hemoptysis or chest pain. Current treatment includes inhaled albuterol, inhaled long-acting beta-2 agonists, inhaled corticosteroids (symbicort 160/4.5 2 puffs bid) and supplemental oxygen (BIPAP with 8 LPM O2 HS and 2 LPM days). By report there is good compliance with treatment, good tolerance of treatment and fair symptom control. The frequency of exacerbations has been times a year (several x/year). Pertinent medical history includes smoking (currently) (did quit for awhile in 2018, now on/off- approx 5 cig/day), oxygen dependency, asthma and obstructive sleep apnea (on bipap/oxygen overnight. sleeps better with use), while pertinent medical history does not include prior intubation and ventilator therapy, tracheostomy, pneumonia, congestive heart failure or lung cancer. Past evaluation has included chest CT (CTA 05/29/18- no PE. noted to have advanced copd/emphysema and bronchiectasis).TOXIC EFFECT OF TOBACCOMORBID OBESITYBRONCHIECTASISOSA (OBSTRUCTIVE SLEEP APNEA)COPD (CHRONIC OBSTRUCTIVE PULMONARY DISEASE) [employer] ([facility]) COPD - The primary physician is Dr. Bacilio Hughes. The last office visit was 7 month(s) ago. Management changes made at the last visit include none (wanted LAMA added, she doesn't recall this and isn't on it). The Gold Classification is Stage 3: Severe COPD. Symptoms include dyspnea on exertion, productive cough and clear sputum production (thick white, uses acapella bid which helps her raise mucous), while symptoms do not include wheezing. Onset was gradual year(s) ago (reports asthma dx as a child, copd dx many years ago). The episodes occur daily. The patient describes this as unchanged. Symptoms are exacerbated by activity and recumbency. Symptoms are relieved by inhaler use, use of a nebulizer (albuterol), supplemental oxygen and rest. Associated symptoms include upper respiratory infection symptoms, while associated symptoms do not include fever, hemoptysis or chest pain. Current treatment includes inhaled albuterol, inhaled long-acting beta-2 agonists, inhaled corticosteroids (symbicort 160/4.5 2 puffs bid) and supplemental oxygen (BIPAP /15 with 8 LPM O2 HS and 2 LPM days). By report there is good compliance with treatment, good tolerance of treatment and fair symptom control. The frequency of exacerbations has been times a year (several x/year). Pertinent medical history includes smoking (currently) (did quit for awhile in 2018, now on/off- approx 5 cig/day), oxygen dependency, asthma and obstructive sleep apnea (on bipap/oxygen overnight. sleeps better with use), while pertinent medical history does not include prior intubation and ventilator therapy, tracheostomy, pneumonia, congestive heart failure or lung cancer. Past evaluation has included chest CT (CTA 05/29/18- no PE. noted to have advanced copd/emphysema and bronchiectasis). TOXIC EFFECT OF TOBACCO MORBID OBESITY BRONCHIECTASIS JIGNESH (OBSTRUCTIVE SLEEP APNEA) COPD (CHRONIC OBSTRUCTIVE PULMONARY DISE ASE) Outpatient 07/30/2019 10:37:00 AM EST [facility] Historical Summary<td><content [id number]">Historical Summary</content>
<content><content styleCode="xLabel xSecondary">Encounter Reason</content>: <content [id number]" styleCode="xSecondary">COPD - The primary physician is Dr. Bacilio Hughes. The last office visit was 7 month(s) ago. Management changes made at the last visit include changing the dose of Spiriva to respimat 2.5 daily and adding Daliresp 250 mg/day, and advising flutter valve use and weight loss. The Gold Classification is Stage 3: Severe COPD. Symptoms include dyspnea on exertion, productive cough and clear sputum production (thick white, uses acapella daily which helps her raise mucous), while symptoms do not include wheezing. Onset was gradual year(s) ago (reports asthma dx as a child, copd dx many years ago). The episodes occur daily. The patient describes this as unchanged. Symptoms are exacerbated by activity and recumbency. Symptoms are relieved by inhaler use, use of a nebulizer (albuterol qid), supplemental oxygen and rest. Associated symptoms do not include fever, hemoptysis, leg edema, upper respiratory infection symptoms or chest pain. Current treatment includes inhaled albuterol, inhaled long-acting beta-2 agonists, inhaled anticholinergics (spiriva handihaler), inhaled corticosteroids (symbicort 160/4.5 2 puffs bid) and supplemental oxygen. By report there is good compliance with treatment, good tolerance of treatment and fair symptom control. The frequency of exacerbations has been times a year (several, most recently 3 weeks ago - november 2018). Pertinent medical history includes oxygen dependency, asthma and obstructive sleep apnea (on bipap/oxygen overnight. sleeps better with use), while pertinent medical history does not include smoking (has quit) (quit apr 2018), prior intubation and ventilator therapy, tracheostomy, pneumonia, congestive heart failure or lung cancer. Past evaluation has included chest CT (CTA 05/29/18- no PE. noted to have advanced copd/emphysema and bronchiectasis).</content></content></td><td><content styleCode="xSecondary">13-Jun-2019 14:15 </content><content styleCode="xLabel xSecondary"> To </content><content styleCode="xSecondary">13-Jun-2019 13:17</content>
<content styleCode="xSecondary">[place] [facility]</content></td><td></td> [facility] 06/13/2019 02:15:00 PM EST - 06/13/2019 01:17:46 PM EST COPD - The primary physician is Dr. Bacilio Hughes. The last office visit was 7 month(s) ago. Management changes made at the last visit include changing the dose of Spiriva to respimat 2.5 daily and adding Daliresp 250 mg/day, and advising flutter valve use and weight loss. The Gold Classification is Stage 3: Severe COPD. Symptoms include dyspnea on exertion, productive cough and clear sputum production (thick white, uses acapella daily which helps her raise mucous), while symptoms do not include wheezing. Onset was gradual year(s) ago (reports asthma dx as a child, copd dx many years ago). The episodes occur daily. The patient describes this as unchanged. Symptoms are exacerbated by activity and recumbency. Symptoms are relieved by inhaler use, use of a nebulizer (albuterol qid), supplemental oxygen and rest. Associated symptoms do not include fever, hemoptysis, leg edema, upper respiratory infection symptoms or chest pain. Current treatment includes inhaled albuterol, inhaled long-acting beta-2 agonists, inhaled anticholinergics (spiriva handihaler), inhaled corticosteroids (symbicort 160/4.5 2 puffs bid) and supplemental oxygen. By report there is good compliance with treatment, good tolerance of treatment and fair symptom control. The frequency of exacerbations has been times a year (several, most recently 3 weeks ago - november 2018). Pertinent medical history includes oxygen dependency, asthma and obstructive sleep apnea (on bipap/oxygen overnight. sleeps better with use), while pertinent medical history does not include smoking (has quit) (quit apr 2018), prior intubation and ventilator therapy, tracheostomy, pneumonia, congestive heart failure or lung cancer. Past evaluation has included chest CT (CTA 05/29/18- no PE. noted to have advanced copd/emphysema and bronchiectasis). [employer] ([facility]) COPD - The primary physician is Dr. Bacilio Hughes. The last office visit was 7 month(s) ago. Management changes made at the last visit include changing the dose of Spiriva to respimat 2.5 daily and adding Daliresp 250 mg/day, and advising flutter valve use and weight loss. The Gold Classification is Stage 3: Severe COPD. Symptoms include dyspnea on exertion, productive cough and clear sputum production (thick white, uses acapella daily which helps her raise mucous), while symptoms do not include wheezing. Onset was gradual year(s) ago (reports asthma dx as a child, copd dx many years ago). The episodes occur daily. The patient describes this as unchanged. Symptoms are exacerbated by activity and recumbency. Symptoms are relieved by inhaler use, use of a nebulizer (albuterol qid), supplemental oxygen and rest. Associated symptoms do not include fever, hemoptysis, leg edema, upper respiratory infection symptoms or chest pain. Current treatment includes inhaled albuterol, inhaled long-acting beta-2 agonists, inhaled anticholinergics (spiriva handihaler), inhaled corticosteroids (symbicort 160/4.5 2 puffs bid) and supplemental oxygen. By report there is good compliance with treatment, good tolerance of treatment and fair symptom control. The frequency of exacerbations has been times a year (several, most recently 3 weeks ago - november 2018). Pertinent medical history includes oxygen dependency, asthma and obstructive sleep apnea (on bipap/oxygen overnight. sleeps better with use), while pertinent medical history does not include smoking (has quit) (quit apr 2018), prior intubation and ventilator th erapy, tracheostomy, pneumonia, congestive heart failure or lung cancer. Past evaluation has included chest CT (CTA 12/24/18- no PE. noted to have advanced copd/emphysema and bronchiectasis). Outpatient<td><content ID="_[id number]">Office Visit</content>
<content><content styleCode="xLabel xSecondary">Encounter Reason</content>: <content [id number]" styleCode="xSecondary">COPD - The primary physician is Dr. Bacilio Hughes. The last office visit was 7 month(s) ago (and she was hospitalized at [facility] with respiratory s/s and had diverticulitis(with surgical procedure) 05/2019 and started Abx/steroids 06/12 for acute bronchitis.). Management changes made at the last visit include changing the dose of Spiriva to respimat 2.5 daily and adding Daliresp 250 mg/day, and advising flutter valve use and weight loss (respimat makes her itch - d/c after 2 weeks and never filled Daliresp.). The Gold Classification is Stage 3: Severe COPD. Symptoms include dyspnea on exertion (slightly worse with recent cold), wheezing, productive cough and clear sputum production (thick white, uses acapella bid which helps her raise mucous). Onset was gradual year(s) ago (reports asthma dx as a child, copd dx many years ago). The episodes occur daily. The patient describes this as worsening (recently). Symptoms are exacerbated by activity and recumbency. Symptoms are relieved by inhaler use, use of a nebulizer (albuterol), supplemental oxygen and rest. Associated symptoms include leg edema (on lasix rx) and upper respiratory infection symptoms, while associated symptoms do not include fever, hemoptysis or chest pain. Current treatment includes inhaled albuterol (prn), inhaled long-acting beta-2 agonists, inhaled anticholinergics, inhaled corticosteroids (symbicort 160/4.5 2 puffs bid) and supplemental oxygen (BIPAP 21/15 with 8 LPM O2 HS and 2 LPM days). By report there is good compliance with treatment, good tolerance of treatment and fair symptom control. The frequency of exacerbations has been times a year (several x/year). Pertinent medical history includes oxygen depend ency, asthma and obstructive sleep apnea (on bipap/oxygen overnight. sleeps better with use), while pertinent medical history does not include smoking (has quit) (quit apr 2018), prior intubation and ventilator therapy, tracheostomy, pneumonia, congestive heart failure or lung cancer. The patient is currently able to do activities of daily living with limitations. Past evaluation has included chest CT (CTA 05/29/18- no PE. noted to have advanced copd/emphysema and bronchiectasis).</content></content>
<content><content styleCode="xSecondary xLabel">Encounter Diagnosis</content>: <content ID="_[id number]" styleCode="xSecondary">COPD (CHRONIC OBSTRUCTIVE PULMONARY DISEASE)</content><content styleCode="xSecondary">, </content><content [id number]" styleCode="xSecondary">CHRONIC BRONCHITIS</content><content styleCode="xSecondary">, </content><content [id number]" styleCode="xSecondary">BRONCHIECTASIS</content><content styleCode="xSecondary">, </content><content [id number]" styleCode="xSecondary">JIGNESH (OBSTRUCTIVE SLEEP APNEA)</content><content styleCode="xSecondary">, </content><content ID="_[id number]" styleCode="xSecondary">HYPOXEMIA</content><content styleCode="xSecondary">, </content><content [id number]" styleCode="xSecondary">GERD (GASTROESOPHAGEAL REFLUX DISEASE)</content><content styleCode="xSecondary">, </content><content [id number]" styleCode="xSecondary">HYPERTENSION</content><content styleCode="xSecondary">, </content><content ID="_[id number]" styleCode="xSecondary">ACUTE BRONCHITIS</content></content></td><td><content styleCode="xSecondary">13-Jun-2019 14:15 </content><content styleCode="xLabel xSecondary"> To </content><content styleCode="xSecondary">13-Jun-2019 14:29</content>
<content styleCode="xSecondary">[place] [facility]</content></td><td></td> [facility] 06/13/2019 02:15:00 PM EST - 06/13/2019 02:29:15 PM EST COPD - The primary physician is Dr. Bacilio Hughes. The last office visit was 7 month(s) ago (and she was hospitalized at [facility] with respiratory s/s and had diverticulitis(with surgical procedure) 05/2019 and started Abx/steroids 06/12 for acute bronchitis.). Management changes made at the last visit include changing the dose of Spiriva to respimat 2.5 daily and adding Daliresp 250 mg/day, and advising flutter valve use and weight loss (respimat makes her itch - d/c after 2 weeks and never filled Daliresp.). The Gold Classification is Stage 3: Severe COPD. Symptoms include dyspnea on exertion (slightly worse with recent cold), wheezing, productive cough and clear sputum production (thick white, uses acapella bid which helps her raise mucous). Onset was gradual year(s) ago (reports asthma dx as a child, copd dx many years ago). The episodes occur daily. The patient describes this as worsening (recently). Symptoms are exacerbated by activity and recumbency. Symptoms are relieved by inhaler use, use of a nebulizer (albuterol), supplemental oxygen and rest. Associated symptoms include leg edema (on lasix rx) and upper respiratory infection symptoms, while associated symptoms do not include fever, hemoptysis or chest pain. Current treatment includes inhaled albuterol (prn), inhaled long-acting beta-2 agonists, inhaled anticholinergics, inhaled corticosteroids (symbicort 160/4.5 2 puffs bid) and supplemental oxygen (BIPAP with 8 LPM O2 HS and 2 LPM days). By report there is good compliance with treatment, good tolerance of treatment and fair symptom control. The frequency of exacerbations has been times a year (several x/year). Pertinent medical history includes oxygen dependency, asthma and obstructive sleep apnea (on bipap/oxygen overnight. sleeps better with use), while pertinent medical history does not include smoking (has quit) (quit apr 2018), prior intubation and ventilator therapy, tracheostomy, pneumonia, congestive heart failure or lung cancer. The patient is currently able to do activities of daily living with limitations. Past evaluation has included chest CT (CTA 05/29/18- no PE. noted to have advanced copd/emphysema and bronchiectasis).ACUTE BRONCHITISHYPERTENSIONGERD (GASTROESOPHAGEAL REFLUX DISEASE)HYPOXEMIAOSA (OBSTRUCTIVE SLEEP APNEA)BRONCHIECTASISCHRONIC BRONCHITISCOPD (CHRONIC OBSTRUCTIVE PULMONARY DISEASE) [facility] ([facility]) COPD - The primary physician is Dr. Bacilio Hughes. The last office visit was 7 month(s) ago (and she was hospitalized at [facility] with respiratory s/s and had diverticulitis(with surgical procedure) 05/2019 and started Abx/steroids 06/12 for acute bronchitis.). Management changes made at the last visit include changing the dose of Spiriva to respimat 2.5 daily and adding Daliresp 250 mg/day, and advising flutter valve use and weight loss (respimat makes her itch - d/c after 2 weeks and never filled Daliresp.). The Gold Classification is Stage 3: Severe COPD. Symptoms include dyspnea on exertion (slightly worse with recent cold), wheezing, productive cough and clear sputum production (thick white, uses acapella bid which helps her raise mucous). Onset was gradual year(s) ago (reports asthma dx as a child, copd dx many years ago). The episodes occur daily. The patient describes this as worsening (recently). Symptoms are exacerbated by activity and recumbency. Symptoms are relieved by in haler use, use of a nebulizer (albuterol), supplemental oxygen and rest. Associated symptoms include leg edema (on lasix rx) and upper respiratory infection symptoms, while associated symptoms do not include fever, hemoptysis or chest pain. Current treatment includes inhaled albuterol (prn), inhaled long- acting beta-2 agonists, inhaled anticholinergics, inhaled corticosteroids (symbicort 160/4.5 2 puffs bid) and supplemental oxygen (BIPAP with 8 LPM O2 HS and 2 LPM days). By report there is good compliance with treatment, good tolerance of treatment and fair symptom control. The frequency of exacerbations has been times a year (several x/year). Pertinent medical history includes oxygen dependency, asthma and obstructive sleep apnea (on bipap/oxygen overnight. sleeps better with use), while pertinent medical history does not include smoking (has quit) (quit apr 2018), prior intubation and ventilator therapy, tracheostomy, pneumonia, congestive heart failure or lung cancer. The patient is currently able to do activities of daily living with limitations. Past evaluation has included chest CT (CTA 05/29/18- no PE. noted to have advanced copd/emphysema and bronchiectasis). ACUTE BRONCHITIS HYPERTENSION GERD (GASTROESOPHAGEAL REFLUX DISEASE) HYPOXEMIA JIGNESH (OBSTRUCTIVE SLEEP APNEA) BRONCHIECTASIS CHRONIC BRONCHITIS COPD (CHRONIC OBSTRUCTIVE PULMONARY DISE ASE) Outpatient Referrer: Felipe Huddleston DO 06/13/2019 01:14:49 PM EST [facility] 05/17/2019 09:49:00 PM EST [facility] Medications Medication Brand Name Start Date Product Form Dose Route Admi nistrative Instructions Pharmacy Instructions Status Indications Reaction Description Data Source(s) 7 ACTUAT umeclidinium 0.0625 MG/ACTUAT D ry Powder Inhaler [Incruse] Incruse Ellipta 62.5 MCG/INH Inhalation Aerosol Powder Breath Activated Incruse Ellipta 62.5 MCG/INH Inhalation Aerosol Powder Breath Activated 12/25/2019 12:00:00 AM EDT 1 {Puff} [id number] active Incruse Ellipta [facility] ([facility]) Roflumilast 0.5 MG Oral Tablet [Daliresp] Daliresp 500 MCG Oral Tablet Daliresp 500 MCG Oral Tablet 06/13/2019 12:00:00 AM EST 1 {Tablet} [id number] suspended Daliresp [facility]) Spiriva Respimat 2.5 MCG/ACT Inhalation Aerosol Solution [id number] 11/29/2018 12:00:00 AM EDT 2 {Puff} [id number] aborted Spiri va Respimat [facility] ([facility]) has not been using- states it makes her body itch Insurance Providers Payer name Policy type / Coverage type Policy ID Covered constitution party ID Covered constitution party's relationship to cunha Policy [place] Plan Information [facility] [id number] SP [id number] [place] [id number] SP [id number] SELF PAY ONLY [id number] SP [id number] MEDICARE [id number] SP [id number] MEDICAID [id number] S [id number] [facility]) O [id number] S [id number] [facility] [id number] SP [id number] MEDICAID [id number] SP [id number] [facility] [id number] SP [id number] MEDICARE [id number] SP [id number] A [facility] MEDICARE PI PI MEDICAID PI PI MEDICAID [id number] Mariza [id number] [facility] MEDICARE [id number] Mariza [id number] MEDICARE [id number] Mariza [id number] [facility] [id number] SP [id number] MEDICAID [id number] SP [id number] [facility] [id number] SP [id number] [facility] Commercial [id number] Self [id number] [facility] MCRO [id number] SP [id number] [facility] [id number] SP [id number] MEDICARE C [id number] S [id number] [facility]) O [id number] S [id number] [facility]LY [facility] COMMUNITY PLAN [facility] [id number] SP [id number] MEDICARE [id number] SP [id number] Surgeries/Procedures Procedure Description Date Indications Data Source(s) OFFICE OUTPATIENT VISIT 40 MINUTES 12/24 01:00:00 PM EDT - 12/25/2019 01:25:48 PM EDT [facility] ([facility]) OFFICE OUTPATIENT VISIT 40 MINUTES 06/13 02:15:00 PM EST - 06/13/2019 02:29:15 PM EST [facility] ([facility]) BRNCDILAT RSPSE SPMTRY PRE&POST-BRNCDILAT ADMN PRE AND POST ([id number])Result: Hemoptysis: No Status: Completed 13-Jun-201906/13/2019 01:49:21 PM EST - 06/13/2019 01:49:37 PM EST [facility] ([facility]) CXR PA & LAT ([id number]) <td colspan="2"><paragraph [id number]">CXR PA & LAT ([id number])</paragraph><content styleCode="xLabel">Result: </content><content ID="_[id number]">Are you or could you become ?: No; When was you last CXR/CT?: over a week ago; Assistant Operations Manager: BRENDEN Evans</content></td><td><content styleCode="xLabel xSecondary"> Status: </content><content styleCode="xSecondary">Completed</content><content styleCode="xSecondary"> 13-Jun-2019</content>
</td> 06/13/2019 01:30:36 PM EST - 06/13/2019 01:30:45 PM EST [facility] ([facility]) PFT PFT Status: Completed 13-Jun-201906/13/2019 12:00:00 AM EST - 06/13/2019 12:00:00 AM EST [facility] ([facility]) Abnormal. reduced FVC 54% with severe ob struction. FeNO FeNO Status: Completed 13-Jun-201906/13/2019 12:00:00 AM EST - 06/13/2019 12:00:00 AM EST [facility]) 5 ppb NITRIC OXIDE GAS DETERMINATION EXHALED NITRIC OXIDE MEASUREMENT ([id number]) Status: Completed 13-Jun-201906/13/2019 12:00:00 AM EST - 06/13/2019 12:00:00 AM EST [facility] ([facility]) Results ID Date Data Source [id number] 06/14/2020 12:00:00 AM EST [facility] Name Value Range Interpretation Code Description Data Libia rce(s) Supporting Document(s) SARS-CoV-2 (COVID-19) RNA [Presence] in Respiratory specimen by DOUGLAS with probe detection Not Detected [facility] This lab was ordered by [facility] and reported by [employer] ID Date Data Source [id number] 06/13/2019 01:33:00 PM EST [facility] PA and LATCLINICAL HISTORY: COPD.COMPARISON: 06/28/2018 chest x-ray.TECHNIQUE: Two views of the chest are provided.FINDINGS: COPD is seen with suspected chronic changes in the lower lobes, unchanged. The heart size is normal. No hilar, mediastinal or pleural abnormality is seen. The bony thorax is intact.IMPRESSION: No acute cardiopulmonary disease.Dictated by: MILADY KESSLER M.D. on 06/13/2019 Transcribed by: lilly on 06/13/2019 02:21 PMcc: Name Value Range Interpretation Code Description Data Libia rce(s) Supporting Document(s) Procedure Vital Signs ID Date Data Source UNK Name Value Range Interpretation Code Description Data Source(s) Body surface area Derived from formula 2.18 m2 2.18 m2 [facility] ([facility]) Body mass index (BMI) [Ratio] 39.54 kg/m2 39.54 kg/m2 [facility]) Body height 66 [in_us] 66 [in_us] [facility] ([facility]) Body weight 245 [lb_av] 245 [lb_av] [facility] ([facility]) Body surface area Derived from formula 2.18 m2 2.18 m2 [facility] ([facility]) Body mass index (BMI) [Ratio] 39.54 kg/m2 39.54 kg/m2 [facility] ([facility]) Body height 66 [in_us] 66 [in_us] [facility] ([facility]) Body weight 245 [lb_av] 245 [lb_av] [facility] ([facility]) Diastolic blood pressure 84 mm[Hg] 84 mm[Hg] [facility] ([facility]) Patient Position: Sitting; Cuff Location : Left Arm; Cuff Size: Standard Systolic blood pressure 130 mm[Hg] 130 mm[Hg] [facility] ([facility]) Patient Position: Sitting; Cuff Location : Left Arm; Cuff Size: Standard Oxygen gas flow Oxygen delivery system 2 L/min 2 L/min [facility] ([facility]) 2L O2 Oxygen saturation in Arterial blood by Pulse oximetry 94 % 94 % [facility] ([facility]) Respiratory rate 16 /min 16 /min [facility] ([facility]) Pattern: Unlabored Heart rate 78 /min 78 /min [facility] ([facility] ) Pattern: Regular Body temperature 98.3 [degF] 98.3 [degF] [facility] ([facility]) Method: Tympanic Patient Treatment Plan of Care Planned Activity Planned Date Details Description Data Source (s) 7 ACTUAT umeclidinium 0.0625 MG/ACTUAT Dry Powder Inha ler [Incruse] 12/25/2019 12:00:00 AM EDT [facility] Roflumilast 0.5 MG Oral Tablet [Daliresp] 06/13/2019 12:00:00 AM ES T [facility] ([facility]) Spiriva Respimat 2.5 MCG/ACT Inhalation Aerosol [facility] on 11/29/2018 12:00:00 AM EDT [facility])
[2020-06-19] MEDS ORDERED: OMEP-218 (01:28)
[2020-06-19] MEDS ORDERED: FAMO40TA3 (01:28)
[2020-06-19 01:32] LABS: BASO # 0.1 10^3/uL (0.0-0.2); BASO % 0.6 % (0.0-1.0); EOS # 0.2 10^3/uL (0.0-0.5); EOS % 1.9 % (0.0-3.0); HEMATOCRIT 46.9 % (36.0-47.0); HEMOGLOBIN 14.6 g/dl (12.0-15.5); LYMPH # 2.1 10^3/uL (1.5-5.0); LYMPH % 20.4 % (24.0-44.0); MEAN CORPUSCULAR HEMOGLOBIN 27.9 pg (27.0-33.0); MEAN CORPUSCULAR HGB CONC 31.1 g/dl (32.0-36.5); MEAN CORPUSCULAR VOLUME 89.7 fl (80.0-96.0); MONO # 0.5 10^3/uL (0.0-0.8); MONO % 4.4 % (0.0-5.0); NEUTROPHILS # 7.5 10^3/uL (1.5-8.5); NEUTROPHILS % 71.9 % (36.0-66.0); PLATELET COUNT, AUTOMATED 278 10^3/uL (150-450); RED BLOOD COUNT 5.23 10^6/uL (4.00-5.40); WHITE BLOOD COUNT 10.4 10^3/uL (4.0-10.0)
[2020-06-19 02:12] LABS: ALBUMIN 3.5 GM/DL (3.2-5.2); ALT/SGPT 38 U/L (12-78); BILIRUBIN,DIRECT 0.2 MG/DL (0.0-0.2); BILIRUBIN,TOTAL 0.5 MG/DL (0.2-1.0); BLOOD UREA NITROGEN 12 MG/DL (7-18); CALCIUM LEVEL 9.7 MG/DL (8.8-10.2); CARBON DIOXIDE LEVEL 28 MEQ/L (21-32); CHLORIDE LEVEL 107 MEQ/L (98-107); CK-MB VALUE MASS < 1.0 NG/ML (<3.6); CPK CREATINE PHOSPHOKINASE 71 U/L (26-192); CREATININE FOR GFR 1.13 MG/DL (0.55-1.30); GLOMERULAR FILTRATION RATE 51.8 (>45); GLUCOSE, FASTING 163 MG/DL (70-100); LIPASE 95 U/L (73-393); MB/CK RELATIVE INDEX 1.41 (< OR =4); NT-PRO BNP 93 PG/ML (<125); POTASSIUM SERUM 3.8 MEQ/L (3.5-5.1); SODIUM LEVEL 141 MEQ/L (136-145); TOTAL PROTEIN 6.9 GM/DL (6.4-8.2); TROPONIN I < 0.02 NG/ML (< 0.10)
[2020-06-19] MEDS ORDERED: ISOVUE-370 76% 100ML VIAL As Ordered ONE (02:41)
[2020-06-19] MEDS: MORPHINE 4 MG/ML 1ML VIAL/SYRINGE (J2270) IV PRN ×2 (02:44→04:14)
[2020-06-19] MEDS ORDERED: ONDANSETRON 4MG/2ML VIAL IV ONE (02:45)
--- NOTE | 2020-06-19 03:52 | REPVR ---
PROCEDURE INFORMATION: Exam: CT Abdomen And Pelvis With Contrast Exam date and time: 06/19/2020 2:32 AM Age: 64 years old Clinical indication: Abdominal pain; Generalized; Additional info: Generalized abd pain. History of diverticulitis. TECHNIQUE: Imaging protocol: Computed tomography of the abdomen and pelvis with intravenous contrast. Radiation optimization: All CT scans at this facility use at least one of these dose optimization techniques: automated exposure control; mA and/or kV adjustment per patient size (includes targeted exams where dose is matched to clinical indication); or iterative reconstruction. COMPARISON: No relevant prior studies available. FINDINGS: Lungs: Subsegmental atelectasis in the right lower lobe and lingula. Liver: Calcified granuloma in the left hepatic lobe. Gallbladder and bile ducts: Status post cholecystectomy. No biliary ductal dilatation. Pancreas: Normal. No ductal dilation. Spleen: Normal. No splenomegaly. Adrenal glands: Normal. No mass. Kidneys and ureters: Benign-appearing cyst in the upper pole of the right kidney measuring 1.4 cm. Benign-appearing cyst in lower pole of left kidney measuring 2.7 cm. No hydronephrosis bilaterally. Stomach and bowel: Large stool and fluid within the colon. Colon is distended up to 7.9 cm. There is a transition point at the colosigmoid junction. Sigmoid diverticulosis. Mild stranding of the fat associated with the sigmoid colon. No bowel perforation. Appendix: The appendix is not seen. However, there is no evidence of appendicitis. Intraperitoneal space: Unremarkable. No free air. No significant fluid collection. Vasculature: No abdominal aortic aneurysm. Moderate calcified atherosclerotic disease. Lymph nodes: Unremarkable. No enlarged lymph nodes. Urinary bladder: Unremarkable as visualized. Reproductive: Status post hysterectomy. Bones/joints: Mild degenerative spine. No acute fracture. Soft tissues: Moderate supraumbilical hernia containing fat. No evidence of incarceration. Subcutaneous tissue is not fully imaged on this study. There is dependent subcutaneous edema. IMPRESSION: 1. Findings consistent with mild sigmoid diverticulitis. Inflammatory changes are decreased from prior. 2. Dilated colon containing stool in fluid with transition point at the colosigmoid junction. Consistent with colonic obstruction. Probably secondary to inflammatory changes or stricture. Malignancy cannot be excluded. 3. Bilateral renal cysts. No follow-up is necessary. 4. No loculated collection to suggest abscess. 5. Additional findings as described. COMMENTS: Consistent with the [employer]'s Incidental Findings Committee white paper (J Am Zoltan Radiol 2018): Any incidental renal lesion less than 1 cm or classified as too small to characterize, or any incidental cystic renal lesion characterized as simple-appearing, is likely benign. No follow-up imaging is recommended for these lesions per consensus recommendations based on imaging criteria. Electronically signed by: Daphney Horvath On 06/19/2020 03:51:48 AM
[2020-06-19 03:53] LABS: RSV AMPLIFICATION NEGATIVE (NEGATIVE)
[2020-06-19] MEDS ORDERED: CEFEPIME HCL 2 GM in D5W MINI-BAG PLUS 50 ML IV ONE (04:45)
--- OUTSIDE RECORDS SUMMARY | 2020-06-19 04:49 | CCD ---
Author Author [facility] Organization [facility] Address Unknown Phone Unavailable Care Team Providers Care Cruise Counselor Name Role Phone Bloxom, L Samara SATELLITE DISH INSTALLER Unavailable Unavailable Bloxom, L Samara SATELLITE DISH INSTALLER Unavailable Unavailable Bloxom, L Samara SATELLITE DISH INSTALLER Unavailable Unavailable Jeanne, L Samara SATELLITE DISH INSTALLER Unavailable Unavailable Jeanne, L Samara SATELLITE DISH INSTALLER Unavailable Unavailable Jeanne, L Samara SATELLITE DISH INSTALLER Unavailable Unavailable Jeanne, L Samara SATELLITE DISH INSTALLER Unavailable Unavailable Jeanne, L Samara SATELLITE DISH INSTALLER Unavailable Unavailable Jeanne, L Samara SATELLITE DISH INSTALLER Unavailable Unavailable Jeanne, L Samara SATELLITE DISH INSTALLER Unavailable Unavailable Jeanne, L Samara SATELLITE DISH INSTALLER Unavailable Unavailable Bloxom, L Samara SATELLITE DISH INSTALLER Unavailable Unavailable Bloxom, L Samara SATELLITE DISH INSTALLER Unavailable Unavailable Jeanne, L Samara SATELLITE DISH INSTALLER Unavailable Unavailable Bloxom, L Samara SATELLITE DISH INSTALLER Unavailable Unavailable Jeanne, L Samara SATELLITE DISH INSTALLER Unavailable Unavailable Bloxom, L Samara SATELLITE DISH INSTALLER Unavailable Unavailable Bloxom, L Samara SATELLITE DISH INSTALLER Unavailable Unavailable Jeanne, L Samara SATELLITE DISH INSTALLER Unavailable Unavailable Jeanne, L Samara SATELLITE DISH INSTALLER Unavailable Unavailable Jeanne, L Samara SATELLITE DISH INSTALLER Unavailable Unavailable Jeanne, L Samara SATELLITE DISH INSTALLER Unavailable Unavailable Bloxom, L Samara SATELLITE DISH INSTALLER Unavailable Unavailable Bloxom, L Samara SATELLITE DISH INSTALLER Unavailable Unavailable Jeanne, L Samara SATELLITE DISH INSTALLER Unavailable Unavailable Jeanne, L Samara SATELLITE DISH INSTALLER Unavailable Unavailable Jeanne, L Samara SATELLITE DISH INSTALLER Unavailable Unavailable Bloxom, L Samara SATELLITE DISH INSTALLER Unavailable Unavailable Jeanne, L Samara SATELLITE DISH INSTALLER Unavailable Unavailable Bloxom, L Samara SATELLITE DISH INSTALLER Unavailable Unavailable Jeanne, L Samara SATELLITE DISH INSTALLER Unavailable Unavailable Jeanne, L Samara SATELLITE DISH INSTALLER Unavailable Unavailable Bloxom, L Samara SATELLITE DISH INSTALLER Unavailable Unavailable Bloxom, L Samara SATELLITE DISH INSTALLER Unavailable Unavailable Jeanne, L Samara SATELLITE DISH INSTALLER Unavailable Unavailable Karo, R Felipe DO Unavailable [...] Unavailable Karo, R Felipe DO Unavailable Unavailable Krao, R Felipe DO Unavailable Unavailable Karo, R [...] is protected by Article 27-F of the [facility] Public Health law. If you continue you may have access to information: Regarding HIV / AIDS; Provided by facilities licensed or operated by the [facility] Office of Mental Health; or Provided by the [facility] Office for People With Developmental Disabilities. If such information is present, then the following [facility] mandated warning applies: This information has been [...] law may result in a fine or shelter sentence or both. A general authorization for the release of medical or other information is NOT sufficient authorization for further disc losure. Advance Directives Directive Description Attendant Child Activity Tours Hostess Status Observation Descr iption Data Source(s) 12024-3 HIPAA - Effective on 06/13/2019. Expiration date u nspecified Elizabeth Schilling completed [facility] Family History Family Member Name Family Member Gender Family Member Status Date o f Status Description Data Source(s) Unknown Unknown Problem [facility] ([facility]) Encounters Encounter Providers Location Date Indications Data Source(s ) Outpatient Referrer: Samara Angel NP 06/03/2020 08:16:0 2 AM EST [facility] Outpatient<td><content ID="_[id number]">Office Visit</content>
<content><content styleCode="xLabel xSecondary">Encounter Reason</content>: <content ID="_[id number]" styleCode="xSecondary">COPD - The primary physician is Dr. [...] and bronchiectasis).</content></content>
<content><content styleCode="xSecondary xLabel">Encounter Diagnosis</content>: <content ID="_[id number]" styleCode="xSecondary">COPD (CHRONIC OBSTRUCTIVE PULMONARY DISEASE)</content><content styleCode="xSecondary">, </content><content ID="_[id number]" styleCode="xSecondary">JIGNESH (OBSTRUCTIVE SLEEP APNEA)</content><content styleCode="xSecondary">, </content><content [id number]" styleCode="xSecondary">BRONCHIECTASIS</content><content styleCode="xSecondary">, </content><content ID="_[id number]" styleCode="xSecondary">MORBID OBESITY</content><content styleCode="xSecondary">, </content><content [id number]" styleCode="xSecondary">TOXIC EFFECT OF TOBACCO</content></content></td><td><content styleCode="xSecondary">25-Dec-2019 13:00 </content><content styleCode="xLabel xSecondary"> To </content><content styleCode="xSecondary">25-Dec-2019 13:25</content>
<content styleCode="xSecondary">[place] [facility]</content></td><td></td> [facility] 12/25/2019 01:00:00 PM EDT - 12/25/2019 [...] DISE ASE) Outpatient 07/30/2019 10:37:00 AM EST [facility] Historical Summary<td><content [id number]">Historical Summary</content>
<content><content styleCode="xLabel xSecondary">Encounter Reason</content>: <content [id number]" styleCode="xSecondary">COPD - The primary physician is Dr. [...] styleCode="xLabel xSecondary"> To </content><content styleCode="xSecondary">13-Jun-2019 13:17</content>
<content styleCode="xSecondary">[place] [facility]</content></td><td></td> [facility] 06/13/2019 02:15:00 [...] have advanced copd/emphysema and bronchiectasis). Outpatient<td><content ID="_[id number]">Office Visit</content>
<content><content styleCode="xLabel xSecondary">Encounter Reason</content>: <content [id number]" styleCode="xSecondary">COPD - The primary physician is Dr. Bacilio Hughes. The last office visit was 7 month(s) ago (and she was hospitalized at [facility] with respiratory s/s and had diverticulitis(with [...] and bronchiectasis).</content></content>
<content><content styleCode="xSecondary xLabel">Encounter Diagnosis</content>: <content ID="_[id number]" styleCode="xSecondary">COPD (CHRONIC OBSTRUCTIVE PULMONARY DISEASE)</content><content styleCode="xSecondary">, </content><content [id number]" styleCode="xSecondary">CHRONIC BRONCHITIS</content><content styleCode="xSecondary">, </content><content [id number]" styleCode="xSecondary">BRONCHIECTASIS</content><content styleCode="xSecondary">, </content><content [id number]" styleCode="xSecondary">JIGNESH (OBSTRUCTIVE SLEEP APNEA)</content><content styleCode="xSecondary">, </content><content [id number]" styleCode="xSecondary">HYPOXEMIA</content><content styleCode="xSecondary">, </content><content ID="_[id number]" styleCode="xSecondary">GERD (GASTROESOPHAGEAL REFLUX DISEASE)</content><content styleCode="xSecondary">, </content><content [id number]" styleCode="xSecondary">HYPERTENSION</content><content styleCode="xSecondary">, </content><content ID="_[id number]" styleCode="xSecondary">ACUTE BRONCHITIS</content></content></td><td><content styleCode="xSecondary">13-Jun-2019 14:15 </content><content styleCode="xLabel xSecondary"> To </content><content styleCode="xSecondary">13-Jun-2019 14:29</content>
<content styleCode="xSecondary">[place] [facility]</content></td><td></td> [facility] 06/13/2019 02:15:00 PM EST - 06/13/2019 02:29:15 PM EST COPD - The primary physician is Dr. Bacilio Hughes. The last office visit was 7 month(s) ago (and she was hospitalized at [facility] with respiratory s/s and had diverticulitis(with [...] month(s) ago (and she was hospitalized at [facility] with respiratory s/s and had diverticulitis(with [...] Felipe Huddleston DO 06/13/2019 01:14:49 PM EST [facility] Outpatient 05/17/2019 09:49:00 PM EST [facility] Medications Medication Brand Name Start Date Product Form Dose Route Admi nistrative Instructions Pharmacy Instructions Status Indications Reaction Description Data Source(s) 7 ACTUAT umeclidinium 0.0625 MG/ACTUAT D ry Powder Inhaler [Incruse] Incruse Ellipta 62.5 MCG/INH Inhalation Aerosol Powder Breath Activated Incruse Ellipta 62.5 MCG/INH Inhalation Aerosol Powder Breath Activated 12/25/2019 12:00:00 AM EDT 1 {Puff} K69941 active Incruse Ellipta [facility]) Roflumilast 0.5 MG Oral Tablet [Daliresp] Daliresp 500 MCG Oral Tablet Daliresp 500 MCG Oral Tablet 06/13/2019 12:00:00 AM EST 1 {Tablet} F70029 suspended Daliresp [facility] Spiriva Respimat 2.5 MCG/ACT Inhalation Aerosol Solution [id number] 11/29/2018 12:00:00 AM EDT 2 {Puff} M12021 aborted Spiri va Respimat [facility]) has not been using- states it makes her body itch Insurance Providers Payer name Policy type / Coverage type Policy ID Covered libertarian ID Covered libertarian's relationship to cunha Policy Cunha Plan Information HUMANA GOLD [id number] SP [id number] [place] [id number] SP [id number] [facility] MCRO [id number] SP [id number] SELF PAY ONLY [id number] SP [id number] MEDICARE [id number] SP [id number] MEDICAID M [id number] S [id number] [facility](MCAID) O [id number] S [id number] [facility] MCRO [id number] SP [id number] MEDICAID [id number] SP [id number] [facility] MCRO [id number] SP [id number] MEDICARE [id number] SP [id number] A [facility] MEDICARE PI PI MEDICAID PI PI MEDICAID [id number] Mariza [id number] [facility] MEDICARE [id number] Mariza [id number] MEDICARE [id number] Mariza [id number] [facility] MCRO [id number] SP [id number] MEDICAID [id number] SP [id number] [facility] MCRO [id number] SP [id number] [employer]/Medicare Commercial [id number] Self [id number] [facility] MCRO [id number] SP [id number] [facility] MCRO [id number] SP [id number] MEDICARE C [id number] S [id number] [facility]) O [id number] S [id number] [facility] [id number] SP [id number] MEDICARE [id number] SP [id number] Surgeries/Procedures Procedure Description Date Indications Data Source(s) OFFICE OUTPATIENT VISIT 40 MINUTES 12/24 01:00:00 PM EDT - 12/25/2019 01:25:48 PM EDT [facility]) OFFICE OUTPATIENT VISIT 40 MINUTES 06/13 02:15:00 PM EST - 06/13/2019 02:29:15 PM EST [facility]) BRNCDILAT RSPSE SPMTRY PRE&POST-BRNCDILAT ADMN PRE AND POST ([id number])Result: Hemoptysis: No Status: Completed 13-Jun-201906/13/2019 01:49:21 PM EST - 06/13/2019 01:49:37 PM EST [facility]) CXR PA & LAT ([id number]) <td colspan="2"><paragraph [id number]">CXR PA & LAT ([id number])</paragraph><content styleCode="xLabel">Result: </content><content ID="_[id number]">Are you or could you become ?: No; When was you last CXR/CT?: over a week ago; Maintenance Superintendent: BRENDEN Evans</content></td><td><content styleCode="xLabel xSecondary"> Status: </content><content styleCode="xSecondary">Completed</content><content [...] - 06/13/2019 12:00:00 AM EST [facility] 5 ppb NITRIC OXIDE GAS DETERMINATION EXHALED NITRIC OXIDE MEASUREMENT (86282) Status: Completed 13-Jun-201906/13/2019 12:00:00 AM EST - 06/13/2019 12:00:00 AM EST [facility]) Results ID Date Data Source [id number] 06/14/2020 12:00:00 AM EST [facility] Name Value Range Interpretation Code Description Data Libia rce(s) Supporting Document(s) SARS-CoV-2 (COVID-19) RNA [Presence] in Respiratory specimen by DOUGLAS with probe detection Not Detected [facility] This lab was ordered by [facility] and reported by [facility]. ID Date Data Source [id number] 06/13/2019 01:33:00 PM EST [facility]ST ROUTINE PA and LATCLINICAL HISTORY: [...] height 66 [in_us] 66 [in_us] [facility] Body weight 245 [lb_av] 245 [lb_av] [facility]) Body surface area Derived from formula 2.18 m2 2.18 m2 [facility]) Body mass index (BMI) [Ratio] 39.54 kg/m2 39.54 kg/m2 [facility]) Body height 66 [in_us] 66 [in_us] [facility] ([facility]) Body weight [...] Heart rate 78 /min 78 /min [facility] Pattern: Regular Body temperature 98.3 [degF] 98.3 [...]
[2020-06-19] MEDS ORDERED: OMEP1CAP73 PO (05:03)
[2020-06-19] MEDS: NS 1,000 ML IV SCH ×3 (05:24→21:24)
[2020-06-19] MEDS ORDERED: IPRATROPIUM 0.5MG/ALBUTEROL 2.5MG INH SOL UD 3ML (DUONEB) NEB PRN (05:30)
[2020-06-19] MEDS ORDERED: ALBUTEROL SULFATE 2.5 MG/0.5 ML INH NEB SOLN INH PRN (05:30)
[2020-06-19] MEDS ORDERED: NICOTINE 14 MG/24 HR TRANSDERMAL TD ONE (05:30)
[2020-06-19] MEDS ORDERED: ALBUTEROL 90 MCG/ACT 8GM HFA INHALER INH PRN (05:30)
--- OUTSIDE RECORDS SUMMARY | 2020-06-19 05:37 | CCD ---
Author Author [facility] Organization [facility] Address Unknown Phone Unavailable Care Team Providers Care [employer]v Parts And Service Director Name Role Phone Oxford, L Samara SYSTEMS QA ANALYST Unavailable Unavailable Oxford, L Samara SYSTEMS QA ANALYST Unavailable Unavailable Oxford, L Samara SYSTEMS QA ANALYST Unavailable Unavailable Jeanne, L Samara SYSTEMS QA ANALYST Unavailable Unavailable Jeanne, L Samara SYSTEMS QA ANALYST Unavailable Unavailable Jeanne, L Samara SYSTEMS QA ANALYST Unavailable Unavailable Jeanne, L Samara SYSTEMS QA ANALYST Unavailable Unavailable Jeanne, L Samara SYSTEMS QA ANALYST Unavailable Unavailable Jeanne, L Samara SYSTEMS QA ANALYST Unavailable Unavailable Jeanne, L Samara SYSTEMS QA ANALYST Unavailable Unavailable Jeanne, L Samara SYSTEMS QA ANALYST Unavailable Unavailable Oxford, L Samara SYSTEMS QA ANALYST Unavailable Unavailable Oxford, L Samara SYSTEMS QA ANALYST Unavailable Unavailable Jeanne, L Samara SYSTEMS QA ANALYST Unavailable Unavailable Oxford, L Samara SYSTEMS QA ANALYST Unavailable Unavailable Jeanne, L Samara SYSTEMS QA ANALYST Unavailable Unavailable Oxford, L Samara SYSTEMS QA ANALYST Unavailable Unavailable Oxford, L Samara SYSTEMS QA ANALYST Unavailable Unavailable Jeanne, L Samara SYSTEMS QA ANALYST Unavailable Unavailable Jeanne, L Samara SYSTEMS QA ANALYST Unavailable Unavailable Jeanne, L Samara SYSTEMS QA ANALYST Unavailable Unavailable Jeanne, L Samara SYSTEMS QA ANALYST Unavailable Unavailable Oxford, L Samara SYSTEMS QA ANALYST Unavailable Unavailable Oxford, L Samara SYSTEMS QA ANALYST Unavailable Unavailable Jeanne, L Samara SYSTEMS QA ANALYST Unavailable Unavailable Jeanne, L Samara SYSTEMS QA ANALYST Unavailable Unavailable Jeanne, L Samara SYSTEMS QA ANALYST Unavailable Unavailable Oxford, L Samraa SYSTEMS QA ANALYST Unavailable Unavailable Jeanne, L Samara SYSTEMS QA ANALYST Unavailable Unavailable Oxford, L Samara SYSTEMS QA ANALYST Unavailable Unavailable Jeanne, L Samara SYSTEMS QA ANALYST Unavailable Unavailable Jeanne, L Samara SYSTEMS QA ANALYST Unavailable Unavailable Oxford, L Samara SYSTEMS QA ANALYST Unavailable Unavailable Oxford, L Samara SYSTEMS QA ANALYST Unavailable Unavailable Jeanne, L Samara SYSTEMS QA ANALYST Unavailable Unavailable Karo, R Felipe DO Unavailable [...] is protected by Article 27-F of the [facility] Public Health law. If you continue you may have access to information: Regarding HIV / AIDS; Provided by facilities licensed or operated by the [facility] Office of Mental Health; or Provided by the [facility] Office for People With Developmental Disabilities. If such information is present, then the following [facility] mandated warning applies: This information has been [...] law may result in a fine or longterm sentence or both. A general authorization for the release of medical or other information is NOT sufficient authorization for further disc losure. Advance Directives Directive Description Roll Reclaimer Business Analyst Sales Operations Status Observation Descr iption Data Source(s) 27039-0 HIPAA - Effective on 06/13/2019. Expiration date u nspecified Elizabeth Schilling completed [facility] Family History Family Member Name Family Member Gender Family Member Status Date o f Status Description Data Source(s) Unknown Unknown Problem [facility] ([facility]) Encounters Encounter Providers Location Date Indications Data Source(s ) Outpatient Referrer: Samara Angel NP 06/03/2020 08:16:0 2 AM EST [facility] Outpatient<td><content ID="_[id number]">Office Visit</content>
<content><content styleCode="xLabel xSecondary">Encounter Reason</content>: <content ID="_[id number]" styleCode="xSecondary">COPD - The primary physician is Dr. [...] and bronchiectasis).</content></content>
<content><content styleCode="xSecondary xLabel">Encounter Diagnosis</content>: <content ID="_[id number]" styleCode="xSecondary">COPD (CHRONIC OBSTRUCTIVE PULMONARY DISEASE)</content><content styleCode="xSecondary">, </content><content ID="_[id number]" styleCode="xSecondary">JIGNESH (OBSTRUCTIVE SLEEP APNEA)</content><content styleCode="xSecondary">, </content><content [id number]" styleCode="xSecondary">BRONCHIECTASIS</content><content styleCode="xSecondary">, </content><content ID="_[id number]" styleCode="xSecondary">MORBID OBESITY</content><content styleCode="xSecondary">, </content><content [id number]" styleCode="xSecondary">TOXIC EFFECT OF TOBACCO</content></content></td><td><content styleCode="xSecondary">25-Dec-2019 13:00 </content><content styleCode="xLabel xSecondary"> To </content><content styleCode="xSecondary">25-Dec-2019 13:25</content>
<content styleCode="xSecondary">[place] [facility] Office</content></td><td></td> [facility] 12/25/2019 01:00:00 PM EDT - [...] DISE ASE) Outpatient 07/30/2019 10:37:00 AM EST [facility] Radiology Imaging Historical Summary<td><content [id number]">Historical Summary</content>
<content><content styleCode="xLabel xSecondary">Encounter Reason</content>: <content [id number]" styleCode="xSecondary">COPD - The primary physician is Dr. [...] styleCode="xLabel xSecondary"> To </content><content styleCode="xSecondary">13-Jun-2019 13:17</content>
<content styleCode="xSecondary">[place] [facility]</content></td><td></td> [facility] 06/13/2019 02:15:00 PM EST [...] have advanced copd/emphysema and bronchiectasis). Outpatient<td><content ID="_[id number]">Office Visit</content>
<content><content styleCode="xLabel xSecondary">Encounter Reason</content>: <content [id number]" styleCode="xSecondary">COPD - The primary physician is Dr. Bacilio Hughes. The last office visit was 7 month(s) ago (and she was hospitalized at [facility] with respiratory s/s and had diverticulitis(with [...] and bronchiectasis).</content></content>
<content><content styleCode="xSecondary xLabel">Encounter Diagnosis</content>: <content [id number]" styleCode="xSecondary">COPD (CHRONIC OBSTRUCTIVE PULMONARY DISEASE)</content><content styleCode="xSecondary">, </content><content [id number]" styleCode="xSecondary">CHRONIC BRONCHITIS</content><content styleCode="xSecondary">, </content><content [id number]" styleCode="xSecondary">BRONCHIECTASIS</content><content styleCode="xSecondary">, </content><content [id number]" styleCode="xSecondary">JIGNESH (OBSTRUCTIVE SLEEP APNEA)</content><content styleCode="xSecondary">, </content><content [id number]" styleCode="xSecondary">HYPOXEMIA</content><content styleCode="xSecondary">, </content><content ID="_[id number]" styleCode="xSecondary">GERD (GASTROESOPHAGEAL REFLUX DISEASE)</content><content styleCode="xSecondary">, </content><content [id number]" styleCode="xSecondary">HYPERTENSION</content><content styleCode="xSecondary">, </content><content ID="_[id number]" styleCode="xSecondary">ACUTE BRONCHITIS</content></content></td><td><content styleCode="xSecondary">13-Jun-2019 14:15 </content><content styleCode="xLabel xSecondary"> To </content><content styleCode="xSecondary">13-Jun-2019 14:29</content>
<content styleCode="xSecondary">[place] [facility]</content></td><td></td> [facility] 06/13/2019 02:15:00 PM EST - 06/13/2019 02:29:15 PM EST COPD - The primary physician is Dr. Bacilio Hughes. The last office visit was 7 month(s) ago (and she was hospitalized at [facility] with respiratory s/s and had diverticulitis(with [...] month(s) ago (and she was hospitalized at [facility] with respiratory s/s and had diverticulitis(with [...] Felipe Huddleston DO 06/13/2019 01:14:49 PM EST [facility] Outpatient 05/17/2019 09:49:00 PM EST [facility] Radiology Imaging Medications Medication Brand Name Start Date Product Form Dose Route Admi nistrative Instructions Pharmacy Instructions Status Indications Reaction Description Data Source(s) 7 ACTUAT umeclidinium 0.0625 MG/ACTUAT D ry Powder Inhaler [Incruse] Incruse Ellipta 62.5 MCG/INH Inhalation Aerosol Powder Breath Activated Incruse Ellipta 62.5 MCG/INH Inhalation Aerosol Powder Breath Activated 12/25/2019 12:00:00 AM EDT 1 {Puff} [id number] active Incruse Ellipta [facility]) Roflumilast 0.5 MG Oral Tablet [Daliresp] Daliresp 500 MCG Oral Tablet Daliresp 500 MCG Oral Tablet 06/13/2019 12:00:00 AM EST 1 {Tablet} [id number] suspended Daliresp [facility] Spiriva Respimat 2.5 MCG/ACT Inhalation Aerosol Solution [id number] 11/29/2018 12:00:00 AM EDT 2 {Puff} [id number] aborted Spiri va Respimat [facility]) has not been using- states it makes her body itch Insurance Providers Payer name Policy type / Coverage type Policy ID Covered democrat ID Covered democrat's relationship to cunha Policy Cunha Plan Information HUMANA GOLD [id number] SP [id number] [place]ED[place] [id number] SP [id number] [facility] MCRO [id number] SP [id number] SELF PAY ONLY [id number] SP [id number] MEDICARE [id number] SP [id number] MEDICAID M [id number] S [id number] [facility](MCAID) O [id number] S [id number] [facility] MCRO [id number] SP [id number] MEDICAID [id number] SP [id number] [facility] MCRO [id number] SP [id number] MEDICARE [id number] SP [id number] [facility] MEDICARE PI PI MEDICAID PI PI MEDICAID [id number] Mariza [id number] [facility] MEDICARE [id number] Mariza [id number] MEDICARE [id number] Mariza [id number] [facility] MCRO [id number] SP [id number] MEDICAID [id number] SP [id number] [facility] MCRO [id number] SP [id number] [facility] Commercial [id number] Self [id number] [facility] MCRO [id number] SP [id number] [facility] MCRO [id number] SP [id number] MEDICARE C [id number] S [id number] [facility](MCAID) O [id number] S [id number] [facility] [id number] SP [id number] MEDICARE [id number] SP [id number] Surgeries/Procedures Procedure Description Date Indications Data Source(s) OFFICE OUTPATIENT VISIT 40 MINUTES 12/24 01:00:00 PM EDT - 12/25/2019 01:25:48 PM EDT [facility]) OFFICE OUTPATIENT VISIT 40 MINUTES 06/13 02:15:00 PM EST - 06/13/2019 02:29:15 PM EST [facility]) BRNCDILAT RSPSE SPMTRY PRE&POST-BRNCDILAT ADMN PRE AND POST ([id number])Result: Hemoptysis: No Status: Completed 13-Jun-201906/13/2019 01:49:21 PM EST - 06/13/2019 01:49:37 PM EST [facility]) CXR PA & LAT ([id number]) <td colspan="2"><paragraph ID="_[id number]">CXR PA & LAT ([id number])</paragraph><content styleCode="xLabel">Result: </content><content [id number]">Are you or could you become ?: No; When was you last CXR/CT?: over a week ago; Elastic Assembler: BRENDEN Evans</content></td><td><content styleCode="xLabel xSecondary"> Status: </content><content styleCode="xSecondary">Completed</content><content [...] - 06/13/2019 12:00:00 AM EST [facility] 5 ppb NITRIC OXIDE GAS DETERMINATION EXHALED NITRIC OXIDE MEASUREMENT ([id number]) Status: Completed 13-Jun-201906/13/2019 12:00:00 AM EST - 06/13/2019 12:00:00 AM EST [facility]) Results ID Date Data Source [id number] 06/14/2020 12:00:00 AM EST [facility] Name Value Range Interpretation Code Description Data Libia rce(s) Supporting Document(s) SARS-CoV-2 (COVID-19) RNA [Presence] in Respiratory specimen by DOUGLAS with probe detection Not Detected [facility] This lab was ordered by [facility] and reported by [employer]. ID Date Data Source [id number] 06/13/2019 01:33:00 PM EST [facility] CHEST ROUTINE PA and LATCLINICAL [...] height 66 [in_us] 66 [in_us] [facility] Body weight 245 [lb_av] 245 [lb_av] [facility]) Body surface area Derived from formula 2.18 m2 2.18 m2 [facility]) Body mass index (BMI) [Ratio] 39.54 kg/m2 39.54 kg/m2 [facility]) Body height 66 [in_us] 66 [in_us] [facility] ([facility]) Body weight 245 [...] Heart rate 78 /min 78 /min [facility] ([facility]) Pattern: Regular Body [...]
--- NOTE | 2020-06-19 05:41 | HPEPDOC ---
[facility] Medical History & Physical Date of Admission Jun 19, 2020 Date of Service: Jun 19, 2020 History and Physical CHIEF COMPLAINT: Abdominal pain HISTORY OF PRESENT ILLNESS: 64-year-old female history COPD, JIGNESH, CHF, hypertension, niy-zbmbjvj-vrfpvvlhi diabetes, diverticulitis with abscesses in the past, presents with abdominal pain found to have diverticulitis with colonic obstruction possibly from inflammation or stricture. Patient endorses a 3 day history of progressively worsening abdominal pain mostly located along the right lower quadrant and left lower quadrants as well as dysuria. Says her abdominal pain is associated with nausea and vomiting daily. Denies any fevers or chills. Denies any chest pain or shortness of breath. Endorses some wheezing which she thinks is her baseline. Patient denies any bloody bowel movements. She says she has a bowel movement yesterday evening which was soft but small. She has not tried to take any medications for her pain nothing alleviates or exacerbates her pain. She endorses that her abdominal pain is very reminiscent of prior episode of diverticulitis she experienced In the emergency department CT scan of the abdomen was done and confirmed diverticulitis with colonic obstruction. See results below. She was started on cefepime due to her multiple drug allergies. PAST MEDICAL/SURGICAL HISTORY: COPD uses 2 L of oxygen at home Obstructive sleep apnea and uses CPAP machine at home Congestive heart failure with preserved ejection fraction Moderate pulmonary hypertension Hypertension Class III obesity Clj-rjjotkg-wnnisdrca diabetes GERD Hiatal hernia History of diverticulitis was abscess Appendectomy Cholecystectomy Hysterectomy SOCIAL HISTORY: Drinks alcohol socially Has been unable to quit smoking smokes a few cigarettes daily asking for nicotine patch Denies illicit drug use FAMILY HISTORY: Reviewed and none contributory to this admission ALLERGIES: Please see below. REVIEW OF SYSTEMS: 10 point review of systems complete all negative otherwise stated in HPI HOME MEDICATIONS: Please see below. PHYSICAL EXAMINATION: Constitutional: Awake and alert, in no apparent distress, obese pickwickian habitus ENT: Sclera are clear Respiratory: Lungs mild expiratory wheezing bilaterally. No respiratory distress. No use of accessory muscles. On 2 L of oxygen by nasal cannula Cardiovascular: RRR S1 and S2 are normal, no murmur Gastrointestinal: Abdomen is soft, obese, non distended, nontender protruding hiatal hernia, BS present, abdomen tender to palpation along the left lower quadrant and right lower quadrant. No rebound tenderness. Musculoskeletal: No lower extremity edema. Neurologic: No focal neurological deficit. Mental Status: A&O x3, normal affect Skin: Warm, dry LABORATORY DATA: See below. IMAGING: CT abdomen/pelvis with contrast, impressions: 1. Findings consistent with mild sigmoid diverticulitis. Inflammatory changes are decreased from prior. 2. Dilated colon containing stool in fluid with transition point at the colosigmoid junction. Consistent with colonic obstruction. Probably secondary to inflammatory changes or stricture. Malignancy cannot be excluded. 3. Bilateral renal cysts. No follow-up is necessary. 4. No loculated collection to suggest abscess. MICROBIOLOGY: Please see below. ASSESSMENT/PLAN 64-year-old female history COPD, JIGNESH, CHF, hypertension, dqd-amkbmqc-omdddbkfa diabetes, diverticulitis with abscesses in the past, presents with abdominal pain found to have diverticulitis with colonic obstruction possibly from inflammation or stricture admitted for medical management. # Diverticulitis with possible colonic obstruction: Nothing by mouth. IV fluids. Multiple drug allergies will have to use meropenem IV every 8 hours. Consider ID consultation in the morning. Fu blood cultures. PPI. CT results reviewed as above. # Colonic obstruction: Cause of her colonic obstruction is not clear yet could be from inflammation from the diverticulitis versus stricture versus malignancy consider surgery consultation in the morning. It's reassuring the patient had a bowel movement in the past 24 hours. Passing gas currently. # UTI: He endorses dysuria but no fever. Meropenem to cover organisms. Follow-up on urine culture. # chronic hypoxic respiratory failure due to COPD: On 2 L of oxygen at home. Mild wheezing on exam which patient thinks is her baseline. Scheduled and when necessary duonebs. Continue supplemental oxygen and titrate for goal of 88-92%. # CHF with preserved ejection fraction: Resume home Lasix # JIGNESH: May use home CPAP machine # DM: ISS. Frequent Accu-Cheks. Hypoglycemic precautions. # Hypertension: Continue home meds. Monitor and titrate # Obesity class III: Complicates care. Should follow-up with PCP for recommendations on weight loss. # Tobacco Smoker: Nicotine patch. Counseled to quit smoking. # DVT prophylaxis: Lovenox A Yousef Hospitalist Vital Signs Vital Signs Date Time Temp Pulse Resp B/P (MAP) Pulse Ox O2 Delivery O2 Flow Rate FiO2 06/19/20 05:19 28 91 1/14/21 04:14 Nasal Cannula 4.0 06/19/20 04:06 100 06/19/20 03:36 158/79 (105) 06/19/20 03:00 97.0 Laboratory Data Labs 24H Laboratory Tests 2 06/19/20 01:25: Immature Granulocyte % (Auto) 0.8, Neutrophils (%) (Auto) 71.9H, Lymphocytes (%) (Auto) 20.4L, Monocytes (%) (Auto) 4.4, Eosinophils (%) (Auto) 1.9, Basophils (%) (Auto) 0.6, Neutrophils # (Auto) 7.5, Lymphocytes # (Auto) 2.1, Monocytes # (Auto) 0.5, Eosinophils # (Auto) 0.2, Basophils # (Auto) 0.1, Nucleated Red Blood Cells % (auto) 0.0, Anion Gap 6L, Glomerular Filtration Rate 51.8, Calcium Level 9.7, Total Bilirubin 0.5, Direct Bilirubin 0.2, Aspartate Amino Transf (AST/SGOT) 19, Alanine Aminotransferase (ALT/SGPT) 38, Alkaline Phosphatase 107, Total Creatine Kinase 71, Creatine Kinase MB < 1.0, Creatine Kinase MB Relative Index 1.41, Troponin I < 0.02, TX-Aqz-S-Type Natriuretic Peptide 93, Total Protein 6.9, Albumin 3.5, Albumin/Globulin Ratio 1.0L, Lipase 95 06/19/20 03:08: Urine Color YELLOW, Urine Appearance HAZY, Urine pH 5.0, Urine Specific Greene 1.038, Urine Protein 2+H, Urine Glucose (UA) NEGATIVE, Urine Ketones TRACEH, Urine Blood 1+H, Urine Nitrite POSITIVEH, Urine Bilirubin NEGATIVE, Urine Urobilinogen 2.0H, Urine Leukocyte Esterase 2+H, Urine WBC (Auto) 21H, Urine RBC (Auto) 3, Urine Hyaline Casts (Auto) 0, Urine Bacteria (Auto) 3+H, Urine Squamous Epithelial Cells 1, Urine Mucus (Auto) MODERATE, Urine Sperm (Auto) , Coronavirus (COVID-19)(PCR) NEGATIVE, Influenza Type A (RT-PCR) NEGATIVE, Influenza Type B (RT-PCR) NEGATIVE, Respiratory Syncytial Virus (PCR) NEGATIVE CBC/BMP Laboratory Tests 06/19/20 01:25 Microbiology Microbiology 06/19/20 Blood Culture, Received Pending 06/19/20 Blood Culture, Received Pending 06/19/20 Urine Culture, Received Pending Home Medications Scheduled Aspirin (Aspirin EC) 81 Mg Tabec, 81 MG PO DAILY Budesonide/Formoterol (Symbicort 160-4.5 Mcg Inhaler) 6 Gm Hfa.aer.ad, 2 PUFF INH BID Fluticasone Propionate (Flonase Allergy Relief) 9.9 Ml [place].susp, 2 SPRAYS NA DAILY Furosemide (Furosemide) 40 Mg Tab, 40 MG PO DAILY Guaifenesin (Mucinex) 600 Mg Tab.er.12h, 600 MG PO BID Nicotine (Nicotine Patch) 21 Mg Patch.td24, 1 PATCH TOP DAILY APPLIES TO ARMS OR CHEST Omeprazole (Omeprazole) 20 Mg Capsule.dr, 20 MG PO DAILY Umeclidinium [place] (Incruse Ellipta) 62.5 Mcg Blst.w.dev, 1 PUFF INH DAILY Scheduled PRN Albuterol Sulf (Albuterol Sulfate) 2.5 Mg/3 Ml Nebu, 2.5 MG INH Q4H PRN for SHORTNESS OF BREATH Albuterol Sulfate (Proair Hfa) 8.5 Gm Hfa.aer.ad, 2 PUFF INH Q4H PRN for SHORTNESS OF BREATH Tramadol HCl (Tramadol HCl) 50 Mg Tablet, 50 MG PO Q6H PRN for PAIN Allergies Coded Allergies: Penicillins (Verified Allergy, Intermediate, HIVES, 05/08/19) pt has had cefdinir in the past Quinolones (Verified Allergy, Intermediate, RASH, 05/08/19) metronidazole (Verified Allergy, Mild, itching, 05/08/19) Sulfa (Sulfonamide Antibiotics) (Verified Adverse Reaction, Intermediate, VOMITING, BLISTERS, TACHYCARDIA, 05/08/19) Tetracyclines (Verified Adverse Reaction, Intermediate, TACHYCARDIA, BLISTERS, HIVES, 05/08/19) aripiprazole (Verified Adverse Reaction, Intermediate, TACHYCARDIA, 05/08/19) venlafaxine (Verified Adverse Reaction, Mild, INCREASED HR, 05/08/19) Macrolide Antibiotics (Verified Adverse Reaction, Unknown, ITCHY, HIVES, 05/08/19) HAS TAKEN AZITHROMYCIN W/O PROBLEM A-FIB/CHADSVASC A-FIB History Current/History of A-Fib/PAF?: No YOUSEFSANIYA MD Jun 19, 2020 05:40
[2020-06-19] MEDS ORDERED: GLUCAGON INJ 1MG VIAL SC PRN ×2 (05:45→22:45)
[2020-06-19] MEDS ORDERED: GLUCOSE 4GM CHEW TABLET PO PRN ×2 (05:45→22:45)
[2020-06-19] MEDS ORDERED: DEXTROSE 50% 50 ML SYRINGE IV PRN ×2 (05:45→22:45)
[2020-06-19] MEDS: SYMBICORT 160/4.5MCG INHALER 6GM INH SCH ×2 (07:58→20:00)
[2020-06-19] MEDS: IPRATROPIUM 0.5MG/ALBUTEROL 2.5MG INH SOL UD 3ML (DUONEB) NEB SCH ×3 (07:58→20:14)
[2020-06-19] MEDS: MEROPENEM INJ 1 GM in IV 1 EA IV SCH ×3 (08:15→23:04)
[2020-06-19] MEDS: MORPHINE 2 MG/ML 1ML VIAL (J2270) IV PRN (08:16)
--- NOTE | 2020-06-19 08:30 | ECGEPIP ---
[facility] - ED Test Date: 2020-06-19 Pat Name: ELIZABETH BRENNAN Department: Room: [place] [address] Gender: Female Film Editor: : [id number] Requested By: LUCY Iqbal Order Number: [id number] Reading MD: Sukhjinder Mckeon Measurements Intervals Walsh Rate: 95 P: 79 IN: 168 QRS: 50 QRSD: 80 T: 81 QT: 373 QTc: 469 Interpretive Statements SINUS RHYTHM NONSPECIFIC ST & T-WAVE ABNORMALITY SIMILAR TO 03/30/20 Electronically Signed on 06-19-2020 8:29:48 EST by Sukhjinder Mckeon
--- NOTE | 2020-06-19 08:52 | REP ---
INDICATION: SOB. COMPARISON: 03/30/2020 as well as other prior exams. TECHNIQUE: SINGLE PORTABLE AP VIEW OF THE CHEST WAS PERFORMED. FINDINGS: Bibasilar fibrotic changes appear stable when compared to prior studies with no definite acute infiltrate. Cardiomediastinal silhouette is unchanged. IMPRESSION: Stable chronic findings with no definite acute infiltrate. <Electronically signed by Herminio Hernandez > 06/19/20 0849
[2020-06-19] MEDS ORDERED: ENOXAPARIN 40MG/0.4ML SYRINGE (J1650 PER 10MG) SC SCH (09:00)
[2020-06-19 09:50] VITALS: BP 156/93
[2020-06-19] MEDS ORDERED: LORazepam 2 MG/ML VIAL IV ONE (10:50)
[2020-06-19] MEDS: HumaLOG INSULIN (NovoLOG) PER UNIT SC SCH ×3 (11:50→16:32)
[2020-06-19 11:58] LABS: ABG BASE EXCESS 0.8 (-2.0-2.0); ABG HCO3 26.5 MEQ/L (22.0-26.0); ABG O2 SATURATION 83.7 % (95.0-99.0); ABG PARTIAL PRESSURE CO2 46.1 mmHg (35.0-45.0); ABG STANDARD HCO3 24.8 MEQ/L (22.0-26.0); ABG TOTAL CO2 27.9 MEQ/L (23.0-31.0); ABG pH (ARTERIAL) 7.377 UNITS (7.350-7.450)
[2020-06-19 12:03] LABS: ABG PARTIAL PRESSURE O2 46.6 mmHg (75.0-100.0)
--- NOTE | 2020-06-19 13:42 | REP ---
INDICATION: r/o PE. COMPARISON: Chest radiograph the same day. TECHNIQUE/RADIOTRACER AND DOSE: Following the intravenous administration of 5.2 mCi technetium 99 M tagged MAA and the inhalation of 1.0 mCi technetium 99 M DTPA aerosol, multiple images of the lung nava are obtained in various projections. FINDINGS: There are extensive bilateral perfusion defects throughout both lungs. There are larger, more extensive ventilation defects with extensive central deposition of radiotracer in the airways. Findings could be due to COPD. However pulmonary embolism is not excluded. IMPRESSION: Indeterminate V/Q scan. Extensive bilateral perfusion defects with larger ventilation defects, may be due to COPD. However pulmonary embolism is not excluded. <Electronically signed by Herminio Hernandez > 06/19/20 [id number]
[2020-06-19] MEDS: methylPREDNISolone 125MG 2ML VIAL IV SCH ×2 (13:43→23:05)
[2020-06-19] MEDS: FLUTICASONE PROP 0.05% NASAL SPRAY 16 GM (FLONASE) SCH (13:44)
[2020-06-19] MEDS: ASPIRIN 81 MG ENTERIC TAB PO SCH (13:44)
[2020-06-19] MEDS: FUROSEMIDE 40 MG TAB PO SCH (13:44)
[2020-06-19] MEDS: PANTOPRAZOLE 40MG VIAL (C9113 PER 1) IV SCH (13:44)
[2020-06-19] MEDS: guaiFENesin ER 600 MG TAB PO SCH ×2 (13:44→21:00)
[2020-06-19 14:00] VITALS: BP 130/62
--- NOTE | 2020-06-19 14:22 | CR.PDOC ---
General Surgery Consultation Date of Consultation 06/19/20 History and Physical CONSULT REPORT FOR: hospitalist service REASON FOR CONSULTATION: abdominal pain, diverticulitis, colon obstruction HISTORY OF PRESENT ILLNESS: I was asked to consult on Ms. Schilling who is a 64-year-old female admitted under the hospitalist service when she presented to the emergency room early this morning reporting a 3 day history of crampy abdominal pain and discomfort and today was nauseated and vomiting. Has had multiple episodes of acute diverticulitis according to her. In 2019 she was admitted for diverticulitis with a pericolic abscess that was drained percutaneously by radiology With resolution of her symptoms. I saw her then during that time and I thought she had a significant risk for an elective colon surgery given her degree of COPD. She is on a BiPAP on oxygen at home at night. She is fairly sedentary. She's been asymptomatic the whole year last year. She presents today with above complaints and on workup in the emergency room, she had a CT abdomen and pelvis done which demonstrated what mostly is chronic scarring or inflammation over the left lower quadrant area with evidence for dilated loops of colon proximal to the rectosigmoid junction suggestive of some degree of colonic obstruction. She reports that she had a normal bowel movement 2 days prior. She only had a small bowel movement yesterday. She is intermittently passing flatus. She feels mildly improved since she has been admitted. With the above findings I was asked to consult on the patient. PAST MEDICAL HISTORY: 1. Advance COPD, uses bipap with 2-4L O2 at night 2. Obstructive sleep apnea 3. Congestive heart failure with preserved ejection fraction 4. Moderate pulmonary hypertension 5. Hypertension 6. Morbid obesity with a BMI of 43 7. Buz-wlogrrm-wfbqrsyuv diabetes 8. Gastroesophageal reflux disease 9 hiatal hernia 10. Multiple episodes of diverticulitis. . PAST SURGICAL HISTORY: INCLUDES: 1. Appendectomy 2. Cholecystectomy 3. Hysterectomy PREVIOUS ANESTHESIA REACTIONS: denies ALLERGIES: Please see below. FAMILY HISTORY: noncontributory SOCIAL HISTORY: continues to smoke <1 ppd. HOME MEDICATIONS: Please see below. REVIEW OF SYSTEMS: GENERAL: denies fevers, chills HEENT: Denies vision problems, hearing problems. Denies hoarseness in her voice. NECK: Denies any neck pain CARDIOVASCULAR: Denies chest pain and palpitations. MUSCULOSKELETAL: Denies arthralgias, back pain and thrombophlebitis. SKIN: Denies rash. NEUROLOGIC: Denies headache, stroke and transient ischemic attack. ENDOCRINE: Patient with diabetes [id number]-[id number]. She denies any polydipsia, polyphagia, polyuria. HEMATOLOGY/ONCOLOGY: Denies bleeding or clotting disorder. HEART: Patient sedentary, denies angina. PULMONARY: Patient with known COPD admitted in the hospital 03/30/2020 with exacerbation. She uses CPAP and O2 mainly at night. GASTROINTESTINAL: See HPI. Last colonoscopy was on 04/05/2017. GENITOURINARY: Denies dysuria, frequency, hematuria and nocturia. ENDOCRINE: Denies polydipsia, polyphagia, polyuria, heat or cold intolerance. INFECTIOUS: Denies any recent upper respiratory tract infection, UTI, need for use of antibiotics. NUTRITION: Reports good appetite prior to start of her symptoms. PHYSICAL EXAMINATION: VITALS SIGNS: Please see below. GENERAL APPEARANCE: Patient seen on her bed, relatively comfortable low she noticeably has some. SKIN: Warm and dry, no jaundice, no skin rashes. HEENT: Normocephalic Lips and mucosa appear mildly dry, has a nasogastric tube in place with thick brownish drainage. NECK: Short, supple, no jugular venous distention. LUNGS: Fairly clear anteriorly and the upper lung without any wheezing, decreased air movement, no rales. Patient is wearing high flow O2 via facemask still satting only 90%, increased work of breathing noted. HEART: Regular heart rhythm, no murmurs. Rate low 100. ABDOMEN: Abdomen is round, soft, softly distended, mildly tympanitic to percussion. Mild tenderness over the left lower quadrant area without any rebound or guarding. Laparoscopic port sites from prior surgeries noted. EXTREMITIES: No significant edema ANCILLARIES: . LABORATORY DATA: Please see below. IMAGING STUDIES: CT abdomen and pelvis Mild sigmoid diverticulitis. Inflammatory changes or decreased from prior. Dilated colon containing stool with transition point at the rectosigmoid junction consistent with colonic obstruction probably secondary to inflammatory changes or stricture. No free air, no abscess IMPRESSION AND PLAN: acute vs chronic diveriticulitis with evidence for colon obstruction COPD and possible exacerbation There were earlier concern to the patient is septic with the patient being tachycardic with low sats but look in on her and evaluate her symptoms and examining her, does not seem to be secondary to a severe systemic inflammatory response. Her abdomen is only mildly distended and remains soft. She is reporting some intermittent bowel function probably not efficient. She has 3 days of crampy abdominal pain. Her exam is not much that tender over the left lower quadrant area. She may have an acute diverticulitis to most of the changes that I could see on her CT and comparing it to the prior CT back in 2019 appears mostly chronic inflammatory/scarring changes. She has had a colonoscopy done in 2017 which only showed diverticulosis. Most likely this is stricture from ch ronic diverticulitis. As it stands right now, her lung function needs to improve before we can realistically bring her to the operating room. I've asked for an NG tube to be placed to help with decompression to most of the small bowel and colon is nondistended so she might have a nonpatent ileocecal valve. I'll give her some laxatives to hopefully we'll waiting for her lung function to improve give her a slow prep in anticipation that she might need surgery. Depending on her overall health this may include surgical resection versus just doing a colostomy to divert the obstruction and it does not fully resolve. I will follow patient closely. Potentially will need surgery early next week. If her obstruction worsens while waiting for her lung function to improve, he may just need to do a quick diversion, though she will still be at risk for prolonged need for mechanical ventilation. Vital Signs Vital Signs Date Time Temp Pulse Resp B/P (MAP) Pulse Ox O2 Delivery O2 Flow Rate FiO2 06/19/20 09:26 95 93 Nasal Cannula 4.0 06/19/20 08:56 119/67 (84) 06/19/20 08:16 24 06/19/20 03:00 97.0 Laboratory Data Labs 24H Laboratory Tests 2 06/19/20 01:25: Immature Granulocyte % (Auto) 0.8, Neutrophils (%) (Auto) 71.9H, Lymphocytes (%) (Auto) 20.4L, Monocytes (%) (Auto) 4.4, Eosinophils (%) (Auto) 1.9, Basophils (%) (Auto) 0.6, Neutrophils # (Auto) 7.5, Lymphocytes # (Auto) 2.1, Monocytes # (Auto) 0.5, Eosinophils # (Auto) 0.2, Basophils # (Auto) 0.1, Nucleated Red Blood Cells % (auto) 0.0, Anion Gap 6L, Glomerular Filtration Rate 51.8, Calcium Level 9.7, Total Bilirubin 0.5, Direct Bilirubin 0.2, Aspartate Amino Transf (AST/SGOT) 19, Alanine Aminotransferase (ALT/SGPT) 38, Alkaline Phosphatase 107, Total Creatine Kinase 71, Creatine Kinase MB < 1.0, Creatine Kinase MB Relative Index 1.41, Troponin I < 0.02, CR-Xii-F-Type Natriuretic Peptide 93, Total Protein 6.9, Albumin 3.5, Albumin/Globulin Ratio 1.0L, Lipase 95 06/19/20 03:08: Urine Color YELLOW, Urine Appearance HAZY, Urine pH 5.0, Urine Specific [place] 1.038, Urine Protein 2+H, Urine Glucose (UA) NEGATIVE, Urine Ketones TRACEH, Urine Blood 1+H, Urine Nitrite POSITIVEH, Urine Bilirubin NEGATIVE, Urine Urobilinogen 2.0H, Urine Leukocyte Esterase 2+H, Urine WBC (Auto) 21H, Urine RBC (Auto) 3, Urine Hyaline Casts (Auto) 0, Urine Bacteria (Auto) 3+H, Urine Squamous Epithelial Cells 1, Urine Mucus (Auto) MODERATE, Urine Sperm (Auto) , Coronavirus (COVID-19)(PCR) NEGATIVE, Influenza Type A (RT-PCR) NEGATIVE, Influenza Type B (RT-PCR) NEGATIVE, Respiratory Syncytial Virus (PCR) NEGATIVE 06/19/20 08:05: Lactic Acid Level 1.2 06/19/20 08:22: Troponin I < 0.02 06/19/20 09:20: Bedside Glucose ([facility]) 166H CBC/BMP Laboratory Tests 06/19/20 01:25 Microbiology Microbiology 06/19/20 Blood Culture, Received Pending 06/19/20 Blood Culture, Received Pending 06/19/20 Urine Culture, Received Pending Home Medications Scheduled Aspirin (Aspirin EC) 81 Mg Tabec, 81 MG PO DAILY, (Reported) Budesonide/Formoterol (Symbicort 160-4.5 Mcg Inhaler) 6 Gm Hfa.aer.ad, 2 PUFF INH BID, (Reported) Fluticasone Propionate (Flonase Allergy Relief) 9.9 Ml [place].susp, 2 SPRAYS NA DAILY, (Reported) Furosemide (Furosemide) 40 Mg Tab, 40 MG PO DAILY, (Reported) Guaifenesin (Mucinex) 600 Mg Tab.er.12h, 600 MG PO BID, (Reported) Nicotine (Nicotine Patch) 21 Mg Patch.td24, 1 PATCH TOP DAILY, (Reported) APPLIES TO ARMS OR CHEST Omeprazole (Omeprazole) 20 Mg Capsule.dr, 20 MG PO DAILY, (Reported) Umeclidinium [place] (Incruse Ellipta) 62.5 Mcg Blst.w.dev, 1 PUFF INH DAILY, (Reported) Scheduled PRN Albuterol Sulf (Albuterol Sulfate) 2.5 Mg/3 Ml Nebu, 2.5 MG INH Q4H PRN for SHORTNESS OF BREATH, (Reported) Albuterol Sulfate (Proair Hfa) 8.5 Gm Hfa.aer.ad, 2 PUFF INH Q4H PRN for SHORTNESS OF BREATH, (Reported) Tramadol HCl (Tramadol HCl) 50 Mg Tablet, 50 MG PO Q6H PRN for PAIN, (Reported) Allergies Coded Allergies: Penicillins (Verified Allergy, Intermediate, HIVES, 05/08/19) pt has had cefdinir in the past Quinolones (Verified Allergy, Intermediate, RASH, 05/08/19) metronidazole (Verified Allergy, Mild, itching, 05/08/19) Sulfa (Sulfonamide Antibiotics) (Verified Adverse Reaction, Intermediate, VOMITING, BLISTERS, TACHYCARDIA, 05/08/19) Tetracyclines (Verified Adverse Reaction, Intermediate, TACHYCARDIA, BLISTERS, HIVES, 05/08/19) aripiprazole (Verified Adverse Reaction, Intermediate, TACHYCARDIA, 05/08/19) venlafaxine (Verified Adverse Reaction, Mild, INCREASED HR, 05/08/19) Macrolide Antibiotics (Verified Adverse Reaction, Unknown, ITCHY, HIVES, 05/08/19) HAS TAKEN AZITHROMYCIN W/O PROBLEM KELLI STOLL MD Jun 19, 2020 11:04
[2020-06-19] MEDS ORDERED: MAGNESIUM CITRATE 300 ML BTL PO ONE (14:45)
--- NOTE | 2020-06-19 15:20 | IPNPDOC ---
Date Seen The patient was seen on 06/19/20. Progress Note SUBJECTIVE: When evaluated very SOB on 4-5 L, CXR showed stable chronic findings with no infiltrate. V/Q scan cannot r/o PE. Unable to do CTA chest due to recent contrast given with CT abd/pelvis until 06/20/20. ABG showed pH 7.31/ pCO2 46.1 / p02 46.6 / pHCO3 26.5. Discussed findings on CT with surgery, placed NG tube and patient felt much better. Started steroid due to increased wheezing, possible concomitant COPD exacerbation. Patient denies chest pain,n/v/d. OBJECTIVE: PHYSICAL EXAMINATION: VS: Please see below Constitutional: Awake and alert, mild respiratory distress, unable to speak full sentences with out incr sob, obese ENT: Sclera are clear Neck: large diameter Respiratory: wheezing bilaterally, occasional rhonchi, n venturi mask. No rales Cardiovascular: RRR S1 and S2 are normal, no murmur Gastrointestinal: Abdomen is soft, obese, distended, tender in LLQ, hernia, BS present. No rebound tenderness. Musculoskeletal: ROM not tested in lower ext, +1 pitting edema in lower ext. Neurologic: No focal neurological deficit Mental Status: A&O x3, normal affect Skin: Warm, dry, intact LABORATORY DATA: See below. IMAGING: CTA chest to r/o PE: scheduled for early AM 06/20/20 V/Q scan: Indeterminate V/Q scan. Extensive bilateral perfusion defects with larger ventilation defects, may be due to COPD. However pulmonary embolism is not excluded. CXR: Chronic findings CT abdomen/pelvis with contrast: 1. Findings consistent with mild sigmoid diverticulitis. Inflammatory changes are decreased from prior. 2. Dilated colon containing stool in fluid with transition point at the colosigmoid junction. Consistent with colonic obstruction. Probably secondary to inflammatory changes or stricture. Malignancy cannot be excluded. 3. Bilateral renal cysts. No follow-up is necessary. 4. No loculated collection to suggest abscess. MICROBIOLOGY: UA +, UCx pending BCx x 2 sets pending ASSESSMENT: 64-year-old female history COPD, JIGNESH, CHF, hypertension, kph-rndweja-[id number] diabetes, diverticulitis with abscesses in the past, presents with abdominal pain found to have diverticulitis with colonic obstruction, UTI, acute on chronic respiratory failure likely 2/2 to COPD exacerbation. PLAN: # Diverticulitis with possible colonic obstruction, sepsis -WBC 10.4, HR and RR elevated. LA wnl -Hx of diverticulitis with abscess in past. -CT abd/pelvis above, cannot r/o inflammation vs. mass as cause of possible obstruction -NPO currently -F/u blood cultures -C/w IVFs, meropenem, NG tube to IS, pain control -Surgery consulted to evaluate #Colonic obstruction -See above #Acute on chronic respiratory failure likely 2/2 to COPD exacerbation, cannot r/o PE on V/Q scan -Uses 4 L NC ATC and bleeds 2-3 L into Bipap at night -ABG showed pH 7.31/ pCO2 46.1 / p02 46.6 / pHCO3 26.5. while on increased O2, 8L NC swiched to venturi mask 40% FiO2 -CXR and V/Q scan above -F/u CTA chest early AM on 06/20/20 when able to be done -Starting on steroids, duonebs ATC, PRN, current abx, therapeutic dosing of lovenox # UTI -+ dysuria, afebrile, WBC 10.4 -UCx, blood cultures pending -C/w meropenem #HFpEF, not currently in exacerbation -BNP wnl -C/w home meds # JIGNESH -May use home bipap # DM -BS stable -ISS. Frequent Accu-Cheks. Hypoglycemic precautions. # Hypertension -Continue home meds. Monitor and titrate # Obesity class III - Complicates care. Should follow-up with PCP for recommendations on weight loss. # Tobacco Smoker -Nicotine patch. Counseled to quit smoking. # DVT prophylaxis - Lovenox BID while ruling out PE. If CTA chest neg for PE, please switch back to daily prophylactic dosing. DISPOSITION: Currently inpatient status. Patient will need PT/OT prior to decision on discharge. VS, I&O, 24H, Fishbone Vital Signs/I&O Vital Signs Date Time Temp Pulse Resp B/P (MAP) Pulse Ox O2 Delivery O2 Flow Rate FiO2 06/19/20 14:00 96.9 89 22 130/62 (84) 92 Venturi Mask 15.0 Laboratory Data 24H LABS Laboratory Tests 2 06/19/20 01:25: Immature Granulocyte % (Auto) 0.8, Neutrophils (%) (Auto) 71.9H, Lymphocytes (%) (Auto) 20.4L, Monocytes (%) (Auto) 4.4, Eosinophils (%) (Auto) 1.9, Basophils (%) (Auto) 0.6, Neutrophils # (Auto) 7.5, Lymphocytes # (Auto) 2.1, Monocytes # (Auto) 0.5, Eosinophils # (Auto) 0.2, Basophils # (Auto) 0.1, Nucleated Red Blood Cells % (auto) 0.0, Anion Gap 6L, Glomerular Filtration Rate 51.8, Calcium Level 9.7, Total Bilirubin 0.5, Direct Bilirubin 0.2, Aspartate Amino Transf (AST/SGOT) 19, Alanine Aminotransferase (ALT/SGPT) 38, Alkaline Phosphatase 107, Total Creatine Kinase 71, Creatine Kinase MB < 1.0, Creatine Kinase MB Relative Index 1.41, Troponin I < 0.02, NB-Ryk-E-Type Natriuretic Peptide 93, Total Protein 6.9, Albumin 3.5, Albumin/Globulin Ratio 1.0L, Lipase 95 06/19/20 03:08: Urine Color YELLOW, Urine Appearance HAZY, Urine pH 5.0, Urine Specific [place] 1.038, Urine Protein 2+H, Urine Glucose (UA) NEGATIVE, Urine Ketones TRACEH, Urine Blood 1+H, Urine Nitrite POSITIVEH, Urine Bilirubin NEGATIVE, Urine Urobilinogen 2.0H, Urine Leukocyte Esterase 2+H, Urine WBC (Auto) 21H, Urine RBC (Auto) 3, Urine Hyaline Casts (Auto) 0, Urine Bacteria (Auto) 3+H, Urine Squamous Epithelial Cells 1, Urine Mucus (Auto) MODERATE, Urine Sperm (Auto) , Coronavirus (COVID-19)(PCR) NEGATIVE, Influenza Type A (RT-PCR) NEGATIVE, Influenza Type B (RT-PCR) NEGATIVE, Respiratory Syncytial Virus (PCR) NEGATIVE 06/19/20 08:05: Lactic Acid Level 1.2 06/19/20 08:22: Troponin I < 0.02 06/19/20 09:20: Bedside Glucose (Misc Panel) 166H 06/19/20 11:47: Blood Gas Bicarbonate Standard 24.8, Arterial Blood pH 7.377, Arterial Blood Partial Pressure CO2 46.1H, Arterial Blood Partial Pressure O2 46.6*L, Arterial Blood Total CO2 27.9, Arterial Blood HCO3 26.5H, Arterial Blood Base Excess 0.8, Arterial Blood Oxygen Saturation 83.7L 06/19/20 13:57: Bedside Glucose (Misc Panel) 143H CBC/BMP Laboratory Tests 06/19/20 01:25 Microbiology Microbiology 06/19/20 Blood Culture, Received Pending 06/19/20 Blood Culture, Received Pending 06/19/20 Urine Culture, Received Pending Current Medications Current Medications Medications (Trade) Dose Ordered Sig/Selam Route PRN Reason Start Time Stop Time Status Last Admin Dose Admin Albuterol Sulfate (Proventil Neb) 2.5 mg Q4H PRN INH SHORTNESS OF BREATH 06/19/20 05:30 06/19/20 05:43 DC Albuterol Sulfate (Proventil, Ventolin Hfa) 2 puff Q4H PRN INH SHORTNESS OF BREATH 06/19/20 05:30 06/19/20 05:43 DC Albuterol/ Ipratropium (Duoneb (Ipr 0.5mg/Alb 2.5mg)) 3 ml Q4HP PRN NEB SOB/WHEEZING 06/19/20 05:30 Albuterol/ Ipratropium (Duoneb (Ipr 0.5mg/Alb 2.5mg)) 3 ml RQ6H NEB 06/19/20 08:00 Aspirin (Ecotrin) 81 mg DAILY PO 06/19/20 09:00 06/19/20 13:44 Budesonide/ Formoterol Fumarate (Symbicort 160/ 4.5mcg) 2 puff RBID INH 06/19/20 08:00 06/19/20 07:58 Dextrose (Dextrose 50%) 25 ml ASDIRECTED PRN IV SEE LABEL COMMENTS 06/19/20 05:45 Enoxaparin Sodium (Lovenox) 40 mg DAILY SC 06/19/20 09:00 06/19/20 13:44 Fluticasone Propionate (Flonase 0.05% Nasal [place]) 2 spray DAILY NA 06/19/20 09:00 06/19/20 13:44 Furosemide (Lasix) 40 mg DAILY PO 06/19/20 09:00 06/19/20 13:44 Glucagon (Glucagon) 1 mg ASDIRECTED PRN SC SEE LABEL COMMENTS 06/19/20 05:45 Glucose (Glucose) 16 GM ASDIRECTED PRN PO SEE LABEL COMMENTS 06/19/20 05:45 Guaifenesin (Mucinex Tab Er) 600 mg BID PO 06/19/20 09:00 06/19/20 13:44 Home Med (Med Rec Complete!) ASDIRECTED XX 06/19/20 05:15 06/19/20 05:05 DC Insulin Human Lispro (HumaLOG INSULIN) SEE PROTOCOL TABLE AC SC 06/19/20 07:30 Insulin Human Lispro (HumaLOG INSULIN) SEE PROTOCOL TABLE QHS SC 06/19/20 21:00 Meropenem 1 gm/IV Miscellaneous Supplies 50 ml @ 100 mls/hr Q8H IV 06/19/20 08:00 06/19/20 08:15 Methylprednisolone (SOLUmedrol) 60 mg Q8H IV 06/19/20 13:00 06/19/20 13:43 Morphine Sulfate (Morphine Sulfate Inj) 2 mg Q4H PRN IV MODERATE PAIN (PS 5-7) 06/19/20 05:30 06/19/20 08:16 Morphine Sulfate (Morphine Sulfate Inj) 4 mg Q30M PRN IV SEVERE PAIN (PS 8-10) 06/19/20 02:45 06/19/20 04:15 DC 06/19/20 04:14 Pantoprazole Sodium (Protonix) 40 mg DAILY IV 06/19/20 09:00 06/19/20 13:44 Polyethylene Glycol (Miralax) 1 pkt BID PO 06/19/20 21:00 Sodium Chloride 1,000 ml @ 125 mls/hr Q8H IV 06/19/20 05:24 06/19/20 13:47 Allergies Coded Allergies: Penicillins (Verified Allergy, Intermediate, HIVES, 05/08/19) pt has had cefdinir in the past Quinolones (Verified Allergy, Intermediate, RASH, 05/08/19) metronidazole (Verified Allergy, Mild, itching, 05/08/19) Sulfa (Sulfonamide Antibiotics) (Verified Adverse Reaction, Intermediate, VOMITING, BLISTERS, TACHYCARDIA, 05/08/19) Tetracyclines (Verified Adverse Reaction, Intermediate, TACHYCARDIA, BLISTERS, HIVES, 05/08/19) aripiprazole (Verified Adverse Reaction, Intermediate, TACHYCARDIA, 05/08/19) venlafaxine (Verified Adverse Reaction, Mild, INCREASED HR, 05/08/19) Macrolide Antibiotics (Verified Adverse Reaction, Unknown, ITCHY, HIVES, 05/08/19) HAS TAKEN AZITHROMYCIN W/O PROBLEM Rachel Stanton MD Jun 19, 2020 15:20
[2020-06-19] MEDS ORDERED: HumaLOG INSULIN (NovoLOG) PER UNIT SC SCH (21:00)
--- NOTE | 2020-06-19 21:08 | REPVR ---
PROCEDURE INFORMATION: Exam: XR Chest, 1 View Exam date and time: 06/19/2020 8:32 PM Age: 64 years old Clinical indication: Device placement; Ng tube; Additional info: Ng tube placement per protocol TECHNIQUE: Imaging protocol: XR of the chest Views: 1 view. COMPARISON: [facility] PORTABLE CHEST X-RAY 06/19/2020 8:00 AM FINDINGS: Tubes, catheters and devices: The tip of the esophagus extends into the stomach. The side hole is not well visualized but may be in the distal esophagus. Lungs: Right basilar airspace infiltrates have improved. No new infiltrates. Pleural space: Unremarkable. No pleural effusion. No pneumothorax. Heart/Mediastinum: Stable cardiomegaly. Bones/joints: Unremarkable. Gastrointestinal tract: Stomach is nondistended. IMPRESSION: Tip of the nasogastric tube is in the stomach. The side hole is not well visualized but may be in the distal esophagus. Electronically signed by: Marcelino Oates On 06/19/2020 21:07:44 PM
[2020-06-19 22:00] VITALS: BP 124/70
[2020-06-19] MEDS: MIRALAX *UNIT DOSE* 17GM PACKET PO SCH (22:15)
[2020-06-19] MEDS: ENOXAPARIN 120MG/0.8ML SYRINGE (J1650 PER 10MG) SC SCH (23:05)
[2020-06-20] MEDS: IPRATROPIUM 0.5MG/ALBUTEROL 2.5MG INH SOL UD 3ML (DUONEB) NEB SCH ×4 (01:17→19:54)
[2020-06-20] MEDS: NS 1,000 ML IV SCH ×2 (04:37→13:24)
[2020-06-20] MEDS: methylPREDNISolone 125MG 2ML VIAL IV SCH ×3 (04:37→20:55)
[2020-06-20 06:00] VITALS: BP 125/71
[2020-06-20] MEDS: HumaLOG INSULIN (NovoLOG) PER UNIT SC SCH ×5 (06:00→21:00)
[2020-06-20 06:14] LABS: HEMATOCRIT 45.1 % (36.0-47.0); HEMOGLOBIN 13.9 g/dl (12.0-15.5); MEAN CORPUSCULAR HEMOGLOBIN 27.9 pg (27.0-33.0); MEAN CORPUSCULAR HGB CONC 30.8 g/dl (32.0-36.5); MEAN CORPUSCULAR VOLUME 90.4 fl (80.0-96.0); PLATELET COUNT, AUTOMATED 261 10^3/uL (150-450); RED BLOOD COUNT 4.99 10^6/uL (4.00-5.40); WHITE BLOOD COUNT 9.6 10^3/uL (4.0-10.0)
[2020-06-20 06:54] LABS: ALBUMIN 3.2 GM/DL (3.2-5.2); ALT/SGPT 35 U/L (12-78); BILIRUBIN,TOTAL 0.4 MG/DL (0.2-1.0); BLOOD UREA NITROGEN 11 MG/DL (7-18); CALCIUM LEVEL 9.2 MG/DL (8.8-10.2); CARBON DIOXIDE LEVEL 27 MEQ/L (21-32); CHLORIDE LEVEL 108 MEQ/L (98-107); CREATININE FOR GFR 0.97 MG/DL (0.55-1.30); GLOMERULAR FILTRATION RATE > 60.0 (>45); GLUCOSE, FASTING 189 MG/DL (70-100); POTASSIUM SERUM 4.4 MEQ/L (3.5-5.1); SODIUM LEVEL 142 MEQ/L (136-145); TOTAL PROTEIN 6.4 GM/DL (6.4-8.2)
[2020-06-20] MEDS: SYMBICORT 160/4.5MCG INHALER 6GM INH SCH (07:26)
[2020-06-20] MEDS: PANTOPRAZOLE 40MG VIAL (C9113 PER 1) IV SCH (08:30)
[2020-06-20] MEDS: MEROPENEM INJ 1 GM in IV 1 EA IV SCH ×2 (08:30→17:30)
[2020-06-20] MEDS: FUROSEMIDE 40 MG TAB PO SCH (08:31)
[2020-06-20] MEDS: ASPIRIN 81 MG ENTERIC TAB PO SCH (08:31)
[2020-06-20] MEDS: MIRALAX *UNIT DOSE* 17GM PACKET PO SCH ×3 (08:31→21:06)
[2020-06-20] MEDS: ENOXAPARIN 120MG/0.8ML SYRINGE (J1650 PER 10MG) SC SCH (08:31)
[2020-06-20] MEDS: FLUTICASONE PROP 0.05% NASAL SPRAY 16 GM (FLONASE) SCH (08:31)
[2020-06-20] MEDS: guaiFENesin ER 600 MG TAB PO SCH ×2 (08:31→20:55)
[2020-06-20] MEDS ORDERED: ISOVUE-370 76% 100ML VIAL As Ordered ONE (09:08)
--- NOTE | 2020-06-20 09:51 | REP ---
INDICATION: r/o PE, V/Q was not clear COMPARISON: 12/16/2018 TECHNIQUE: Axial contrast enhanced images from the thoracic inlet to the upper abdomen using pulmonary embolus technique with multiplanar re-formations. 75 ml Isovue 370 intravenous contrast material administered without complication. This CT examination was performed using the following dose reduction techniques: Automated exposure control, adjustment of mA and/or kv according to the patient's size, and use of iterative reconstruction technique. FINDINGS: Satisfactory enhancement of the pulmonary vasculature is achieved and no filling defects are identified to suggest pulmonary embolus. Lung nava demonstrate chronic emphysematous changes with superimposed moderate right lower lobe consolidation and small area of atelectasis/consolidation at the lingula and tracking in the posterior left upper lobe along the fissure. Smaller scattered areas of atelectasis and scarring noted bilaterally. No effusion. No pneumothorax. No significant adenopathy. Thoracic aorta without aneurysm or dissection. No cardiomegaly. No pericardial effusion. Nasogastric tube identified extending into the stomach. Surrounding musculoskeletal structures demonstrate age-related changes. IMPRESSION: 1. No evidence for pulmonary embolus. 2. Small to moderate area of consolidation in the right lower lobe along with minimal atelectasis in the lingula and posterior left upper lobe with scattered atelectasis. 3. Underlying chronic emphysematous changes and scattered scarring. <Electronically signed by Kai Nguyen > 06/20/20 [id number]
[2020-06-20] MEDS: VANCOMYCIN HCL 1,000 MG, VIAL MATE ADAPTER 1 EACH in D5W 250 ML IV SCH (12:56)
[2020-06-20] MEDS ORDERED: VANCOMYCIN HCL 1,000 MG, VIAL MATE ADAPTER 1 EACH in D5W 250 ML IV ONE (13:00)
[2020-06-20] MEDS: MORPHINE 2 MG/ML 1ML VIAL (J2270) IV PRN (13:02)
--- NOTE | 2020-06-20 13:19 | REP ---
INDICATION: FFUP LBO. COMPARISON: CT 06/19/2020. TECHNIQUE: Two AP views of abdomen and pelvis performed. FINDINGS: No bowel distention is seen. The previously noted distended large bowel appears normal in caliber. Mild air is scattered throughout non dilated small bowel loops. Residual intra venous contrast is seen in the kidneys and ureters and bladder. A Rojas catheter is seen in the bladder. Metallic clips are seen in the abdomen and pelvis. IMPRESSION: No significant bowel distention. <Electronically signed by Herminio Hernandez > 06/20/20 [id number]
--- NOTE | 2020-06-20 13:56 | CR ---
PULMONARY CONSULTATION DATE: 06/20/2020 ATTENDING PHYSICIAN: Camilo Carter M.D. (Pulmonary Critical Care Medicine) REASON FOR CONSULTATION: Hypoxic respiratory failure. REFERRING PHYSICIAN: Rachel Stanton M.D. CONSULTING PHYSICIAN: Camilo Carter M.D. (Pulmonary Critical Care Medicine) HISTORY OF PRESENT ILLNESS: Ms. Schilling is a 64-year-old female with a history of COPD, obstructive sleep apnea on CPAP, congestive heart failure with preserved ejection fraction, hypertension, and pulmonary hypertension, who presented to the [facility] Emergency Department with complaint of abdominal pain and found to have diverticulitis with a chronic obstruction from an inflammatory process versus a stricture. She was planned to be taken to the OR with general surgery, however, has developed acute hypoxia. Patient states at her baseline she requires 2 liters due to COPD. She is on CPAP at night with 8 liters of bleed through.During her hospitalization, patient was noted not to be compliant with her CPAP. Due to her hypoxia she received a VQ scan yesterday, which was indeterminate. She received a CTA this morning, which did not demonstrate a PE, but showed some areas of consolidation in the right lower lobe and the left upper lobe with some scattered atelectasis and emphysematous changes. Currently the patient denies any shortness of breath, although she says that she does feel a little less than her baseline. Pulmonary medicine was consulted for further evaluation of the patient's hypoxia. PAST MEDICAL/SURGICAL HISTORY: 1. COPD; 2 liters of oxygen at home. 2. Obstructive sleep apnea on CPAP. 3. Congestive heart failure with preserved ejection fraction. 4. Pulmonary hypertension. 5. Hypertension. 6. Obesity. 7. Diabetes mellitus type 2. 8. GERD. 9. Hiatal hernia. 10.History of diverticulitis with abscess. 11.Appendectomy. 12.Cholecystectomy. 13.Hysterectomy. SOCIAL HISTORY: Patient admits to drinking alcohol socially. She is a current smoker. She states that she is trying to cut back, but can smoke up to a pack a day. Patient denies any illicit or I.V. drug use. FAMILY HISTORY: Patient's family history was reviewed and it is noncontributory. REVIEW OF SYSTEMS: CONSTITUTIONAL: Patient denies any fevers or chills. She denies any unintentional weight loss to weight gain. She denies any night sweats. HEENT: Patient denies any change in her vision. She denies any sore throat or odynophagia. She denies any dysphagia. CARDIOVASCULAR: Patient denies any chest pain, pressure, palpitations or feelings of heart racing. PULMONARY: Patient admits to some short of breath. She admits to cough with phlegm. She denies any pain on deep inspiration. She denies any wheezing. GASTROINTESTINAL: Patient admits to abdominal pain. She states that she was previously constipated, however, currently having bowel movements. She denies any nausea or vomiting. GENITOURINARY: Patient denies any dysuria, increased frequency or urgency. MUSCULOSKELETAL: Patient admits to chronic back pain. She denies any other musculoskeletal pain. NEUROLOGICAL: Patient denies any changes in her speech or gait. PSYCH: Patient admits to a former history of depression and anxiety. PHYSICAL EXAMINATION: VITAL SIGNS: Temperature 97.6, pulse 104, respiratory rate 20, blood pressure 125/71, pulse oximetry 90% on a Venturi mask 15 flow rate and FiO2 of 40. GENERAL: Patient is awake, alert and oriented. She does not appear in any acute distress. She is conversive. There is no conversational dyspnea. HEENT: Atraumatic, normocephalic. Eyes are nonicteric. Trachea is midline. There is an NG tube in place. CARDIOVASCULAR: Normal S1, S2. Heart sounds are somewhat distant. There is a regular rhythm with a tachycardic rate. PULMONARY: Patient has decreased breath sounds throughout. There is some expiratory wheezing present. Increased expiratory time. There is no accessory muscle use. She does not appear to be in respiratory distress, although there is some mild rhonchi in the left lower lung zone. GASTROINTESTINAL: Abdomen is soft. It is nondistended. It is nontender. There are some hypoactive bowel sounds. EXTREMITIES: Patient's lower extremities are void of any edema. She does have full and equal pulses bilateral upper and lower extremities. NEUROLOGIC: No focal neurological deficits. PSYCHIATRIC: Mood and affect appear appropriate. LABORATORY DATA: Hematology: White blood cell 9.6, hemoglobin 13.9, hematocrit 45.1, platelet count 261,000. Chemistries: Sodium 142, potassium 4.4, chloride 108, CO2 27, BUN 11, creatinine 0.97, fasting glucose 189, calcium 9.2, total bilirubin 0.4, AST 15, ALT 35, alkaline phosphatase 93, total protein 6.4, albumin 3.2. Blood cultures with gram positive cocci times one. IMAGING: CT angiogram from today reviewed, demonstrating some small moderate areas of consolidation in the right lower lobe as well as some scattered atelectasis in the left upper lobe with some chronic emphysematous changes. INPATIENT MEDICATIONS: 1. Lovenox 40 mg daily. 2. Vancomycin 1 gram I.V. 3. MiraLax one packet b.i.d. 4. Solu-Medrol 60 mg every 8 hours. 5. Protonix 40 mg daily. 6. Aspirin 81 mg daily. 7. Lasix 40 mg daily. 8. Mucinex 600 mg b.i.d. 9. DuoNebs 3 mL every 6 hours. 10.Symbicort two puffs required b.i.d. 11.Morphine 2 mg every 4 hours. 12.Normal saline at 125 mL per hour. ASSESSMENT AND PLAN: Ms. Schilling is a 64-year-old female with a past medical history of obstructive sleep apnea, COPD, CHF with preserved ejection fraction and pulmonary hypertension, who had presented originally with a complaint of abdominal pain and found to have diverticulitis with a chronic obstruction. She had planned to go to surgery today, however, had developed hypoxia. Etiology of her hypoxia is unclear, however she had received a CTA, which demonstrated no pulmonary embolism. She has been started empirically on antibiotics for healthcare associated pneumonia. 1. Hypoxic hypercapnic respiratory failure: Patient's etiology is likely multifactorial. She does have some areas of consolidation which are of unclear etiology, however she had a recent hospitalization, and currently was started on antibiotics with Vancomycin and Meropenem by the primary team; recommend continuing. Additionally the patient is obese. She likely has a degree of obesity hypoventilation syndrome. She is on CPAP at home. She reports that she has not been using her CPAP here, she states the reason why is because of the NG tube causing her pain. Patient has been made aware that she will need to use her CPAP while hospitalized as this will help prevent further atelectasis and air trapping, which is likely one of her issues ongoing. Additionally, would recommend PEP therapy, EzPAP and incentive spirometry. If patient is able to, would recommend getting out of bed, moving when appropriate. Will continue her I.V. antibiotics currently for suspected pneumonia. Additionally, the patient is on Solu-Medrol in the setting of her COPD. Will change her to an aerosol mask. Will continue to follow patient and monitor for improvement. 2. DVT prophylaxis: Lovenox. 3. GI prophylaxis: Protonix. I was physically present for the entire interview and exam. I agree with the above assessment and plan as described MTDD
[2020-06-20 14:00] VITALS: BP 134/78
--- NOTE | 2020-06-20 15:40 | IPNPDOC ---
Text Note Date of Service The patient was seen on 06/20/20. NOTE Patient had a moderate soft to loose bm yesterday with lots of gas and felt b kimberli afterwards. Currently denies any abdominal pain, nausea. NGT output minimal overnight VS significant for high O2 requirement afebrile ON exam Patient with a venturi mask. despite low o2 patient able to talk without much considerable gasping for air which probably is due to chronic nature, despite low o2 does not seem to be in distress lungs fairly clear anteriorly abdomen soft, minimally distended, improved from yesterday, nontender on palpation impression/plan chronic diverticulitis with possible stricture partial lbo improved with some laxatives, continue miralax, taper to amount of bms with patient's high o2 requirment, not a surgical candiate at this point unless emergent and it seems to be she is improving with just some laxatives. VS,Fishbone, I+O VS, Fishbone, I+O Laboratory Tests 06/20/20 05:54 Vital Signs Date Time Temp Pulse Resp B/P (MAP) Pulse Ox O2 Delivery O2 Flow Rate FiO2 06/20/20 13:43 20 06/20/20 09:30 3.0 06/20/20 06:00 97.6 104 125/71 (89) 90 Venturi Mask 06/19/20 22:00 40 I&O- Last 24 Hours up to 6 AM 06/20/20 05:59 Intake Total 1150 ml Output Total 1600 ml Balance -450 ml KELLI STOLL MD Jun 20, 2020 15:40
--- NOTE | 2020-06-20 20:01 | IPNPDOC ---
Date Seen The patient was seen on 06/20/20. Progress Note SUBJECTIVE: Patient transitioned to 3 L NC today from 40% FiO2 on venturi mask. Pulmonary consulted and made suggestions. Repeat XR showed improvements, NG tube removed. Discussed with surgery who states patient's diverticulitis is chronic and has possible stricture partial lbo. She is not surgical candidate due to respiratory issues at this time. She had BM overnight and is on bowel regimen. She denies increased SOB, chest pain, n/v. OBJECTIVE: PHYSICAL EXAMINATION: VS: Please see below Constitutional: Awake and alert, unable to speak full sentences with out incr sob, obese ENT: Sclera are clear, nasal cannula in place Neck: large diameter Respiratory: wheezing bilaterally, occasional rhonchi,. No rales Cardiovascular: RRR S1 and S2 are normal, no murmur Gastrointestinal: Abdomen is soft, obese, distended, tender in LLQ, hernia, BS present. No rebound tenderness. Musculoskeletal: ROM not tested in lower ext, +1 pitting edema in lower ext. Neurologic: No focal neurological deficit Mental Status: A&O x3, normal affect Skin: Warm, dry, intact LABORATORY DATA: See below. MICROBIOLOGY: Blood culture 06/19/20: 1bottle anaerobic bottle positive for gram + cocci Blood culture 06/19/20: NG Blood cultures x 2 sets repeated 06/20/20 UA+, UCx pending IMAGING: Abd XR 06/20/20: No bowel distention is seen. The previously noted distended large bowel appears normal in caliber. Mild air is scattered throughout non dilated small bowel loops. Residual intra venous contrast is seen in the kidneys and ureters and bladder. A Rojas catheter is seen in the bladder. Metallic clips are seen in the abdomen and pelvis. CTA chest 06/20/20: 1. No evidence for pulmonary embolus. 2. Small to moderate area of consolidation in the right lower lobe along with minimal atelectasis in the lingula and posterior left upper lobe with scattered atelectasis. 3. Underlying chronic emphysematous changes and scattered scarring. V/Q scan: Indeterminate V/Q scan. Extensive bilateral perfusion defects with larger ventilation defects, may be due to COPD. However pulmonary embolism is not excluded. CXR: Chronic findings CT abdomen/pelvis with contrast: 1. Findings consistent with mild sigmoid diverticulitis. Inflammatory changes are decreased from prior. 2. Dilated colon containing stool in fluid with transition point at the colosigmoid junction. Consistent with colonic obstruction. Probably secondary to inflammatory changes or stricture. Malignancy cannot be excluded. 3. Bilateral renal cysts. No follow-up is necessary. 4. No loculated collection to suggest abscess. ASSESSMENT: 64-year-old female history COPD, JIGNESH, CHF, hypertension, [id number] diabetes, diverticulitis with abscesses in the past, presents with abdominal pain found to have diverticulitis with colonic obstruction, UTI, acute on chronic respiratory failure likely 2/2 to COPD e xacerbation. PLAN: # Chronic diverticulitis with possible stricture partial lbo -Hx of diverticulitis with abscess in past. -WBC wnl, afebrile -Improved with some laxatives, BM overnight -Improved abd XR continue miralax, taper to amount of bms -Advanced diet to clear liquids, d/c IVFs and NG tube -C/w abx, pain control -With patient's high o2 requirment, not a surgical candiate at this point unless emergent and it seems to be she is improving with just some laxatives. -Surgery following #Acute on chronic respiratory failure likely multifactorial to HCAP, COPD exacerbation, obesity hypoventilation syndrome, noncompliance with home CPAP for JIGNESH -Transitioned to 3 L NC from venturi mask today -CTA: see above, ruled out PE -C/w vancomycin, meropenem, steroids, duonebs ATC, PRN -Pulmonary consulted #Gram pos bacteremia 1/4 bottles -poss contaminate? -repeated BCx today -Started on vancomycin for HCAP coverage # UTI -+ dysuria, afebrile -UCx, blood cultures pending -C/w abx above #HFpEF, not currently in exacerbation -BNP wnl -C/w home meds # JIGNESH -May use home cpap # DM -BS stable -ISS. Frequent Accu-Cheks. Hypoglycemic precautions. # Hypertension -Continue home meds. Monitor and titrate # Obesity class III - Complicates care. Should follow-up with PCP for recommendations on weight loss. # Tobacco Smoker -Nicotine patch. Counseled to quit smoking. # DVT prophylaxis - Lovenox DISPOSITION: Currently inpatient status. PT/OT ordered to evaluate. Plan is home when medically improved. VS, I&O, 24H, Fishbone Vital Signs/I&O Vital Signs Date Time Temp Pulse Resp B/P (MAP) Pulse Ox O2 Delivery O2 Flow Rate FiO2 06/20/20 14:00 97.6 107 18 134/78 (96) 91 Nasal Cannula 3.0 06/19/20 22:00 40 I&O- Last 24 Hours up to 6 AM 06/20/20 05:59 Intake Total 1150 ml Output Total 1600 ml Balance -450 ml Laboratory Data 24H LABS Laboratory Tests 2 06/19/20 20:56: Bedside Glucose (Misc Panel) 180H 06/20/20 01:38: Bedside Glucose (Misc Panel) 187H 06/20/20 05:54: Nucleated Red Blood Cells % (auto) 0.0, Anion Gap 7L, Glomerular Filtration Rate > 60.0, Calcium Level 9.2, Total Bilirubin 0.4, Aspartate Amino Transf (AST/SGOT) 15, Alanine Aminotransferase (ALT/SGPT) 35, Alkaline Phosphatase 93, Total Protein 6.4, Albumin 3.2, Albumin/Globulin Ratio 1.0L 06/20/20 06:31: Bedside Glucose (Misc Panel) 193H 06/20/20 11:41: Bedside Glucose (Misc Panel) 172H 06/20/20 15:02: Methicillin-Resist S.aureus DNA PCR NOT DETECTED 06/20/20 15:07: Bedside Glucose (Misc Panel) 300H 06/20/20 18:05: Bedside Glucose (Misc Panel) 218H CBC/BMP Laboratory Tests 06/20/20 05:54 Microbiology Microbiology 06/20/20 Blood Culture, Received Pending 06/20/20 Blood Culture, Received Pending 06/19/20 Blood Culture - Preliminary, Resulted 06/19/20 Blood Culture - Preliminary, Resulted No growth after 24 hours . All specim... 06/19/20 Urine Culture, Received Pending Current Medications Current Medications Medications (Trade) Dose Ordered Sig/Selam Route PRN Reason Start Time Stop Time Status Last Admin Dose Admin Albuterol Sulfate (Proventil Neb) 2.5 mg Q4H PRN INH SHORTNESS OF BREATH 06/19/20 05:30 06/19/20 05:43 DC Albuterol Sulfate (Proventil, Ventolin Hfa) 2 puff Q4H PRN INH SHORTNESS OF BREATH 06/19/20 05:30 06/19/20 05:43 DC Albuterol/ Ipratropium (Duoneb (Ipr 0.5mg/Alb 2.5mg)) 3 ml Q4HP PRN NEB SOB/WHEEZING 06/19/20 05:30 Albuterol/ Ipratropium (Duoneb (Ipr 0.5mg/Alb 2.5mg)) 3 ml RQ6H NEB 06/19/20 08:00 06/20/20 19:54 Aspirin (Ecotrin) 81 mg DAILY PO 06/19/20 09:00 06/19/20 13:44 Budesonide/ Formoterol Fumarate (Symbicort 160/ 4.5mcg) 2 puff RBID INH 06/19/20 08:00 06/20/20 07:26 Dextrose (Dextrose 50%) 25 ml ASDIRECTED PRN IV SEE LABEL COMMENTS 06/19/20 05:45 Dextrose (Dextrose 50%) 25 ml ASDIRECTED PRN IV SEE LABEL COMMENTS 06/19/20 22:45 06/19/20 22:46 DC Enoxaparin Sodium (Lovenox) 40 mg DAILY SC 06/19/20 09:00 06/19/20 15:12 DC 06/19/20 13:44 Enoxaparin Sodium (Lovenox) 40 mg DAILY SC 06/21/20 09:00 Enoxaparin Sodium (Lovenox) 120 mg Q12H SC 06/19/20 21:00 06/20/20 11:06 DC 06/20/20 08:31 Fluticasone Propionate (Flonase 0.05% Nasal [place]) 2 spray DAILY NA 06/19/20 09:00 06/20/20 08:31 Furosemide (Lasix) 40 mg DAILY PO 06/19/20 09:00 06/19/20 13:44 Glucagon (Glucagon) 1 mg ASDIRECTED PRN SC SEE LABEL COMMENTS 06/19/20 05:45 Glucagon (Glucagon) 1 mg ASDIRECTED PRN SC SEE LABEL COMMENTS 06/19/20 22:45 06/19/20 22:46 DC Glucose (Glucose) 16 GM ASDIRECTED PRN PO SEE LABEL COMMENTS 06/19/20 05:45 Glucose (Glucose) 16 GM ASDIRECTED PRN PO SEE LABEL COMMENTS 06/19/20 22:45 06/19/20 22:46 DC Guaifenesin (Mucinex Tab Er) 600 mg BID PO 06/19/20 09:00 06/19/20 13:44 Home Med (Med Rec Complete!) ASDIRECTED XX 06/19/20 05:15 06/19/20 05:05 DC Insulin Human Lispro (HumaLOG INSULIN) SEE PROTOCOL TABLE AC IA 06/19/20 07:30 06/19/20 22:45 DC Insulin Human Lispro (HumaLOG INSULIN) SEE PROTOCOL TABLE QHS IA 06/19/20 21:00 06/19/20 22:45 DC Insulin Human Lispro (HumaLOG INSULIN) See Protocol Table Q6H IA 06/20/20 00:00 06/20/20 17:30 Meropenem 1 gm/IV Miscellaneous Supplies 50 ml @ 100 mls/hr Q8H IV 06/19/20 08:00 06/20/20 17:30 Methylprednisolone (SOLUmedrol) 60 mg Q8H IV 06/19/20 13:00 06/20/20 12:58 Morphine Sulfate (Morphine Sulfate Inj) 2 mg Q4H PRN IV MODERATE PAIN (PS 5-7) 06/19/20 05:30 06/20/20 13:02 Morphine Sulfate (Morphine Sulfate Inj) 4 mg Q30M PRN IV SEVERE PAIN (PS 8-10) 06/19/20 02:45 06/19/20 04:15 DC 06/19/20 04:14 Pantoprazole Sodium (Protonix) 40 mg DAILY IV 06/19/20 09:00 06/20/20 08:30 Polyethylene Glycol (Miralax) 1 pkt BID PO 06/19/20 21:00 Sodium Chloride 1,000 ml @ 125 mls/hr Q8H IV 06/19/20 05:24 06/20/20 15:51 DC 06/20/20 04:37 Vancomycin HCl 1000 mg/IV Miscellaneous Supplies 1 each/ Dextrose 270 ml @ 270 mls/hr Q12H IV 06/20/20 12:00 06/20/20 12:56 Allergies Coded Allergies: Penicillins (Verified Allergy, Intermediate, HIVES, 05/08/19) pt has had cefdinir in the past Quinolones (Verified Allergy, Intermediate, RASH, 05/08/19) metronidazole (Verified Allergy, Mild, itching, 05/08/19) Sulfa (Sulfonamide Antibiotics) (Verified Adverse Reaction, Intermediate, VOMITING, BLISTERS, TACHYCARDIA, 05/08/19) Tetracyclines (Verified Adverse Reaction, Intermediate, TACHYCARDIA, BLISTERS, HIVES, 05/08/19) aripiprazole (Verified Adverse Reaction, Intermediate, TACHYCARDIA, 05/08/19) venlafaxine (Verified Adverse Reaction, Mild, INCREASED HR, 05/08/19) Macrolide Antibiotics (Verified Adverse Reaction, Unknown, ITCHY, HIVES, 05/08/19) HAS TAKEN AZITHROMYCIN W/O PROBLEM Rachel Stanton MD Jun 20, 2020 20:01
[2020-06-20 22:00] VITALS: BP 137/84
[2020-06-21] MEDS: VANCOMYCIN HCL 1,000 MG, VIAL MATE ADAPTER 1 EACH in D5W 250 ML IV SCH ×2 (00:17→14:19)
[2020-06-21] MEDS ORDERED: OMEPRAZOLE 20 MG CAP PO ONE (01:00)
[2020-06-21] MEDS: IPRATROPIUM 0.5MG/ALBUTEROL 2.5MG INH SOL UD 3ML (DUONEB) NEB SCH ×4 (01:03→20:47)
[2020-06-21] MEDS: MEROPENEM INJ 1 GM in IV 1 EA IV SCH ×3 (01:28→16:41)
[2020-06-21] MEDS: methylPREDNISolone 125MG 2ML VIAL IV SCH ×3 (04:01→21:41)
[2020-06-21 06:00] VITALS: BP 140/67
[2020-06-21 07:15] LABS: HEMATOCRIT 42.5 % (36.0-47.0); HEMOGLOBIN 13.4 g/dl (12.0-15.5); MEAN CORPUSCULAR HEMOGLOBIN 28.3 pg (27.0-33.0); MEAN CORPUSCULAR HGB CONC 31.5 g/dl (32.0-36.5); MEAN CORPUSCULAR VOLUME 89.9 fl (80.0-96.0); PLATELET COUNT, AUTOMATED 248 10^3/uL (150-450); RED BLOOD COUNT 4.73 10^6/uL (4.00-5.40)
[2020-06-21 07:40] LABS: ALBUMIN 3.2 GM/DL (3.2-5.2); BILIRUBIN,TOTAL 0.3 MG/DL (0.2-1.0); CALCIUM LEVEL 9.1 MG/DL (8.8-10.2); CREATININE FOR GFR 1.03 MG/DL (0.55-1.30); GLOMERULAR FILTRATION RATE 57.6 (>45); POTASSIUM SERUM 4.2 MEQ/L (3.5-5.1); TOTAL PROTEIN 6.1 GM/DL (6.4-8.2)
[2020-06-21] MEDS: SYMBICORT 160/4.5MCG INHALER 6GM INH SCH ×2 (07:58→20:47)
[2020-06-21] MEDS: MIRALAX *UNIT DOSE* 17GM PACKET PO SCH ×2 (10:07→21:41)
[2020-06-21] MEDS: HumaLOG INSULIN (NovoLOG) PER UNIT SC SCH ×4 (10:07→21:00)
[2020-06-21] MEDS: ENOXAPARIN 40MG/0.4ML SYRINGE (J1650 PER 10MG) SC SCH (10:08)
[2020-06-21] MEDS: ASPIRIN 81 MG ENTERIC TAB PO SCH (10:08)
[2020-06-21] MEDS: PANTOPRAZOLE 40MG VIAL (C9113 PER 1) IV SCH (10:08)
[2020-06-21] MEDS: FUROSEMIDE 40 MG TAB PO SCH (10:09)
[2020-06-21] MEDS: guaiFENesin ER 600 MG TAB PO SCH ×2 (10:09→21:41)
[2020-06-21] MEDS: FLUTICASONE PROP 0.05% NASAL SPRAY 16 GM (FLONASE) SCH (10:11)
--- NOTE | 2020-06-21 12:21 | IPN ---
PROGRESS NOTE DATE: 06/21/2020 Patient has had a large-bowel obstruction secondary to probably a diverticular stricture, although possibly with some active diverticulitis that has resolved. At this point, patient has been having soft bowel movements and is requesting to progress her diet. She has had no nausea, no vomiting. Tolerating a clear liquid diet well; however, on her physical exam she still is mildly distended, although it is hard to tell with her morbid obesity whether this is distention or whether this is just her, but I anticipate this is some mild distention and without tenderness present. IMPRESSION AND PLAN: Patient has some mild distention. I do feel that we need to look at an x-ray, and I will order that for today. If this shows that she has resolved her colonic distention, we will advance her to a full liquid diet and see how she does on that for 24 hours and dependent on that go to the next step, obviously, and reassess tomorrow. Otherwise, if she has some mild colonic distention proximal to this area, I would recommend staying on a clear liquid diet.
[2020-06-21 14:00] VITALS: BP 136/85
--- NOTE | 2020-06-21 14:02 | REP ---
INDICATION: large bowel distension ? resolved. COMPARISON: 06/20/2020. TECHNIQUE: Cross-table lateral in supine films abdomen and pelvis. Frontal view chest. FINDINGS: There is no evidence of free intraperitoneal air. There is no evidence of bowel obstruction. Colon is not distended. The previous colonic distention has resolved. Few mildly dilated small bowel loops in left upper quadrant probably represent a mild ileus. Scattered metallic clips are seen in the abdomen and pelvis. There are mild degenerative changes of the spine. There is mild elevation of the right hemidiaphragm. There is no acute infiltrate in either lung. The heart is at the upper limits of normal in size. IMPRESSION: Previously noted colonic distention has resolved. There are a few mildly dilated small bowel loops in the left upper quadrant probably representing a mild ileus. <Electronically signed by Herminio Hernandez > 06/21/20 [id number]
--- NOTE | 2020-06-21 19:46 | IPNPDOC ---
Date Seen The patient was seen on 06/21/20. Progress Note SUBJECTIVE: Saturating well on 3 L NC, repeat imaging done by surgery, advanced diet today. Having multiple BM. She denies abd pain, increased SOB, chest pain, n/v. OBJECTIVE: PHYSICAL EXAMINATION: VS: Please see below Constitutional: Awake and alert, comfortable ENT: Sclera are clear, nasal cannula in place Neck: large diameter Respiratory: wheezing bilaterally, occasional rhonchi,. No rales Cardiovascular: RRR S1 and S2 are normal, no murmur Gastrointestinal: Abdomen is soft, obese, distended, nontender, hernia, BS present. No rebound tenderness. Musculoskeletal: ROM not tested in lower ext, +1 pitting edema in lower ext. : allison cath Neurologic: No focal neurological deficit Psych: Mood and affect appropriate Skin: Warm, dry, intact LABORATORY DATA: See below. MICROBIOLOGY: Blood culture 06/19/20: 1bottle anaerobic bottle positive for gram + cocci Blood culture 06/19/20: NG Blood cultures x 2 sets : NG at 24 hours UCx: E coli Sputum GS and CX: pending IMAGING: CXR: Previously noted colonic distention has resolved. There are a few mildly dilated small bowel loops in the left upper quadrant probably representing a mild ileus. Abd XR 06/20/20: No bowel distention is seen. The previously noted distended large bowel appears normal in caliber. Mild air is scattered throughout non dilated small bowel loops. Residual intra venous contrast is seen in the kidneys and ureters and bladder. A Allison catheter is seen in the bladder. Metallic clips are seen in the abdomen and pelvis. CTA chest 06/20/20: 1. No evidence for pulmonary embolus. 2. Small to moderate area of consolidation in the right lower lobe along with minimal atelectasis in the lingula and posterior left upper lobe with scattered atelectasis. 3. Underlying chronic emphysematous changes and scattered scarring. V/Q scan: Indeterminate V/Q scan. Extensive bilateral perfusion defects with larger ventilation defects, may be due to COPD. However pulmonary embolism is not excl uded. CXR: Chronic findings CT abdomen/pelvis with contrast: 1. Findings consistent with mild sigmoid diverticulitis. Inflammatory changes are decreased from prior. 2. Dilated colon containing stool in fluid with transition point at the colosigmoid junction. Consistent with colonic obstruction. Probably secondary to inflammatory changes or stricture. Malignancy cannot be excluded. 3. Bilateral renal cysts. No follow-up is necessary. 4. No loculated collection to suggest abscess. ASSESSMENT: 64-year-old female history COPD, JIGNESH, CHF, hypertension, [id number] diabetes, diverticulitis with abscesses in the past, presents with abdominal pain found to have diverticulitis with colonic obstruction, UTI, acute on chronic respiratory failure likely 2/2 to COPD exacerbation. PLAN: # Chronic diverticulitis with possible stricture partial lbo -Hx of diverticulitis with abscess in past. -WBC wnl, afebrile -Multiple BM over 24 hours -AbdXR: above -Advanced diet to full liquids today -C/w abx, pain control, bowel regimen -Surgery following #Acute on chronic respiratory failure likely multifactorial to HCAP, COPD exacerbation, obesity hypoventilation syndrome, noncompliance with home CPAP for JIGNESH -Saturating well on 3 L NC, mild wheezing -CTA: see above, ruled out PE -F/u sputum GS and CX -C/w vancomycin, meropenem, steroids, duonebs ATC, PRN -Pulmonary consulted #Gram pos bacteremia 1/4 bottles likely contaminate -repeated BCx NG -C/w vancomycin, meropenem for HCAP coverage # E. coli UTI -UCx e. coli -C/w abx above #HFpEF, not currently in exacerbation -BNP wnl -C/w home meds # JIGNESH -May use home cpap # DM -BS stable -ISS. Frequent Accu-Cheks. Hypoglycemic precautions. # Hypertension -Continue home meds. Monitor and titrate # Obesity class III - Complicates care. Should follow-up with PCP for recommendations on weight loss. # Tobacco Smoker -Nicotine patch. Counseled to quit smoking. # DVT prophylaxis - Lovenox DISPOSITION: Currently inpatient status. PT/OT ordered to evaluate. Plan is home when medically improved. Surgery following. VS, I&O, 24H, Fishbone Vital Signs/I&O Vital Signs Date Time Temp Pulse Resp B/P (MAP) Pulse Ox O2 Delivery O2 Flow Rate FiO2 06/21/20 14:00 98.3 89 16 136/85 (102) 90 Nasal Cannula 3.0 06/19/20 22:00 40 I&O- Last 24 Hours up to 6 AM 06/21/20 06:00 Intake Total 3390 ml Output Total 1825 ml Balance 1565 ml Laboratory Data 24H LABS Laboratory Tests 2 06/20/20 20:39: Bedside Glucose (Misc Panel) 173H 06/21/20 05:59: Nucleated Red Blood Cells % (auto) 0.0, Anion Gap 8, Glomerular Filtration Rate 57.6, Calcium Level 9.1, Total Bilirubin 0.3, Aspartate Amino Transf (AST/SGOT) 13, Alanine Aminotransferase (ALT/SGPT) 34, Alkaline Phosphatase 84, Total Protein 6.1L, Albumin 3.2, Albumin/Globulin Ratio 1.1L 06/21/20 11:36: Bedside Glucose (Misc Panel) 193H 06/21/20 11:50: Vancomycin Level Trough 13.0 06/21/20 16:16: Bedside Glucose (Misc Panel) 222H CBC/BMP Laboratory Tests 06/21/20 05:59 Microbiology Microbiology 06/21/20 Gram Stain, Received Pending 06/21/20 Sputum Culture, Received Pending 06/20/20 Blood Culture - Preliminary, Resulted No growth after 24 hours . All specim... 06/20/20 Blood Culture - Preliminary, Resulted No growth after 24 hours . All specim... 06/19/20 Blood Culture - Preliminary, Resulted 06/19/20 Blood Culture - Preliminary, Resulted No Growth after 48 hours. All Specime... 06/19/20 Urine Culture - Final, Complete Escherichia Coli Current Medications Current Medications Medications (Trade) Dose Ordered Sig/Selam Route PRN Reason Start Time Stop Time Status Last Admin Dose Admin Albuterol Sulfate (Proventil Neb) 2.5 mg Q4H PRN INH SHORTNESS OF BREATH 06/19/20 05:30 06/19/20 05:43 DC Albuterol Sulfate (Proventil, Ventolin Hfa) 2 puff Q4H PRN INH SHORTNESS OF BREATH 06/19/20 05:30 06/19/20 05:43 DC Albuterol/ Ipratropium (Duoneb (Ipr 0.5mg/Alb 2.5mg)) 3 ml Q4HP PRN NEB SOB/WHEEZING 06/19/20 05:30 Albuterol/ Ipratropium (Duoneb (Ipr 0.5mg/Alb 2.5mg)) 3 ml RQ6H NEB 06/19/20 08:00 06/21/20 14:29 Aspirin (Ecotrin) 81 mg DAILY PO 06/19/20 09:00 06/21/20 10:08 Budesonide/ Formoterol Fumarate (Symbicort 160/ 4.5mcg) 2 puff RBID INH 06/19/20 08:00 06/21/20 07:58 Dextrose (Dextrose 50%) 25 ml ASDIRECTED PRN IV SEE LABEL COMMENTS 06/19/20 05:45 Dextrose (Dextrose 50%) 25 ml ASDIRECTED PRN IV SEE LABEL COMMENTS 06/19/20 22:45 06/19/20 22:46 DC Enoxaparin Sodium (Lovenox) 40 mg DAILY SC 06/19/20 09:00 06/19/20 15:12 DC 06/19/20 13:44 Enoxaparin Sodium (Lovenox) 40 mg DAILY SC 06/21/20 09:00 06/21/20 10:08 Enoxaparin Sodium (Lovenox) 120 mg Q12H SC 06/19/20 21:00 06/20/20 11:06 DC 06/20/20 08:31 Fluticasone Propionate (Flonase 0.05% Nasal [place]) 2 spray DAILY NA 06/19/20 09:00 06/21/20 10:11 Furosemide (Lasix) 40 mg DAILY PO 06/19/20 09:00 06/21/20 10:09 Glucagon (Glucagon) 1 mg ASDIRECTED PRN SC SEE LABEL COMMENTS 06/19/20 05:45 Glucagon (Glucagon) 1 mg ASDIRECTED PRN SC SEE LABEL COMMENTS 06/19/20 22:45 06/19/20 22:46 DC Glucose (Glucose) 16 GM ASDIRECTED PRN PO SEE LABEL COMMENTS 06/19/20 05:45 Glucose (Glucose) 16 GM ASDIRECTED PRN PO SEE LABEL COMMENTS 06/19/20 22:45 06/19/20 22:46 DC Guaifenesin (Mucinex Tab Er) 600 mg BID PO 06/19/20 09:00 06/21/20 10:09 Home Med (Med Rec Complete!) ASDIRECTED XX 06/19/20 05:15 06/19/20 05:05 DC Insulin Human Lispro (HumaLOG INSULIN) SEE PROTOCOL TABLE AC SC 06/19/20 07:30 06/19/20 22:45 DC Insulin Human Lispro (HumaLOG INSULIN) SEE PROTOCOL TABLE AC MD 06/21/20 07:30 06/21/20 17:54 Insulin Human Lispro (HumaLOG INSULIN) SEE PROTOCOL TABLE QHS MD 06/19/20 21:00 06/19/20 22:45 DC Insulin Human Lispro (HumaLOG INSULIN) SEE PROTOCOL TABLE QHS MD 06/20/20 21:00 Insulin Human Lispro (HumaLOG INSULIN) See Protocol Table Q6H MD 06/20/20 00:00 06/20/20 20:13 DC 06/20/20 17:30 Meropenem 1 gm/IV Miscellaneous Supplies 50 ml @ 100 mls/hr Q8H IV 06/19/20 08:00 06/21/20 16:41 Methylprednisolone (SOLUmedrol) 60 mg Q8H IV 06/19/20 13:00 06/21/20 14:19 Morphine Sulfate (Morphine Sulfate Inj) 2 mg Q4H PRN IV MODERATE PAIN (PS 5-7) 06/19/20 05:30 06/20/20 13:02 Morphine Sulfate (Morphine Sulfate Inj) 4 mg Q30M PRN IV SEVERE PAIN (PS 8-10) 06/19/20 02:45 06/19/20 04:15 DC 06/19/20 04:14 Pantoprazole Sodium (Protonix) 40 mg DAILY IV 06/19/20 09:00 06/21/20 10:29 DC 06/21/20 10:08 Polyethylene Glycol (Miralax) 1 pkt BID PO 06/19/20 21:00 06/21/20 10:07 Sodium Chloride 1,000 ml @ 125 mls/hr Q8H IV 06/19/20 05:24 06/20/20 15:51 DC 06/20/20 04:37 Vancomycin HCl 1000 mg/IV Miscellaneous Supplies 1 each/ Dextrose 270 ml @ 270 mls/hr Q12H IV 06/20/20 12:00 06/21/20 14:19 Allergies Coded Allergies: Penicillins (Verified Allergy, Intermediate, HIVES, 05/08/19) pt has had cefdinir in the past Quinolones (Verified Allergy, Intermediate, RASH, 05/08/19) metronidazole (Verified Allergy, Mild, itching, 05/08/19) Sulfa (Sulfonamide Antibiotics) (Verified Adverse Reaction, Intermediate, VOMITING, BLISTERS, TACHYCARDIA, 05/08/19) Tetracyclines (Verified Adverse Reaction, Intermediate, TACHYCARDIA, BLISTERS, HIVES, 05/08/19) aripiprazole (Verified Adverse Reaction, Intermediate, TACHYCARDIA, 05/08/19) venlafaxine (Verified Adverse Reaction, Mild, INCREASED HR, 05/08/19) Macrolide Antibiotics (Verified Adverse Reaction, Unknown, ITCHY, HIVES, 05/08/19) HAS TAKEN AZITHROMYCIN W/O PROBLEM Rachel Stanton MD Jun 21, 2020 19:46
[2020-06-21 22:00] VITALS: BP 148/74
[2020-06-22] MEDS: VANCOMYCIN HCL 1,000 MG, VIAL MATE ADAPTER 1 EACH in D5W 250 ML IV SCH ×2 (00:29→13:15)
[2020-06-22] MEDS: IPRATROPIUM 0.5MG/ALBUTEROL 2.5MG INH SOL UD 3ML (DUONEB) NEB SCH ×4 (01:34→20:00)
[2020-06-22] MEDS: MEROPENEM INJ 1 GM in IV 1 EA IV SCH ×4 (01:55→23:13)
[2020-06-22] MEDS: methylPREDNISolone 125MG 2ML VIAL IV SCH ×2 (04:37→17:38)
[2020-06-22 06:00] VITALS: BP 140/84
[2020-06-22 07:29] LABS: HEMATOCRIT 41.9 % (36.0-47.0); HEMOGLOBIN 13.1 g/dl (12.0-15.5); MEAN CORPUSCULAR HEMOGLOBIN 27.6 pg (27.0-33.0); MEAN CORPUSCULAR HGB CONC 31.3 g/dl (32.0-36.5); MEAN CORPUSCULAR VOLUME 88.4 fl (80.0-96.0); PLATELET COUNT, AUTOMATED 243 10^3/uL (150-450); RED BLOOD COUNT 4.74 10^6/uL (4.00-5.40); WHITE BLOOD COUNT 10.2 10^3/uL (4.0-10.0)
[2020-06-22 07:59] LABS: ALBUMIN 2.9 GM/DL (3.2-5.2); ALT/SGPT 43 U/L (12-78); BILIRUBIN,TOTAL 0.3 MG/DL (0.2-1.0); BLOOD UREA NITROGEN 12 MG/DL (7-18); CALCIUM LEVEL 9.1 MG/DL (8.8-10.2); CARBON DIOXIDE LEVEL 32 MEQ/L (21-32); CHLORIDE LEVEL 103 MEQ/L (98-107); GLOMERULAR FILTRATION RATE > 60.0 (>45); GLUCOSE, FASTING 193 MG/DL (70-100); POTASSIUM SERUM 3.9 MEQ/L (3.5-5.1); SODIUM LEVEL 138 MEQ/L (136-145); TOTAL PROTEIN 5.8 GM/DL (6.4-8.2)
[2020-06-22] MEDS: SYMBICORT 160/4.5MCG INHALER 6GM INH SCH ×2 (08:00→21:03)
[2020-06-22] MEDS: HumaLOG INSULIN (NovoLOG) PER UNIT SC SCH ×4 (08:59→22:14)
[2020-06-22] MEDS: MIRALAX *UNIT DOSE* 17GM PACKET PO SCH (09:00)
[2020-06-22] MEDS: ENOXAPARIN 40MG/0.4ML SYRINGE (J1650 PER 10MG) SC SCH (09:00)
[2020-06-22] MEDS: LEVEMIR (INSULIN DETEMIR) 1 UNITS/0.01ML SC SCH (09:00)
[2020-06-22] MEDS: guaiFENesin ER 600 MG TAB PO SCH ×2 (09:02→21:50)
[2020-06-22] MEDS: ASPIRIN 81 MG ENTERIC TAB PO SCH (09:02)
[2020-06-22] MEDS: FUROSEMIDE 40 MG TAB PO SCH (09:02)
[2020-06-22] MEDS: FLUTICASONE PROP 0.05% NASAL SPRAY 16 GM (FLONASE) SCH (09:03)
[2020-06-22 14:00] VITALS: BP 127/83
[2020-06-22] MEDS ORDERED: MIRALAX *UNIT DOSE* 17GM PACKET PO PRN (18:15)
--- NOTE | 2020-06-22 18:19 | IPNPDOC ---
Date Seen The patient was seen on 06/22/20. Progress Note SUBJECTIVE: Saturating well on 3 L NC, advanced diet further today. Stopped laxatives. Sputum Cx pending. She denies abd pain, increased SOB, chest pain, n/v. OBJECTIVE: PHYSICAL EXAMINATION: VS: Please see below Constitutional: Awake and alert, comfortable ENT: Sclera are clear, nasal cannula in place Neck: large diameter Respiratory: improved wheezing bilaterally, occasional rhonchi,. No rales Cardiovascular: RRR S1 and S2 are normal, no murmur Gastrointestinal: Abdomen is soft, obese, distended, nontender, hernia, BS present. No rebound tenderness. Musculoskeletal: ROM not tested in lower ext, +1 pitting edema in lower ext. : allison cath Neurologic: No focal neurological deficit Psych: Mood and affect appropriate Skin: Warm, dry, intact LABORATORY DATA: See below. MICROBIOLOGY: Blood culture 06/19/20: 1bottle anaerobic bottle positive for gram + cocci Blood culture 06/19/20: NG Blood cultures x 2 sets : NG at 24 hours UCx: E coli Sputum GS multiple organisms Sputum CX: pending IMAGING: CXR: Previously noted colonic distention has resolved. There are a few mildly dilated small bowel loops in the left upper quadrant probably representing a mild ileus. Abd XR 06/20/20: No bowel distention is seen. The previously noted distended large bowel appears normal in caliber. Mild air is scattered throughout non dilated small bowel loops. Residual intra venous contrast is seen in the kidneys and ureters and bladder. A Allison catheter is seen in the bladder. Metallic clips are seen in the abdomen and pelvis. CTA chest 06/20/20: 1. No evidence for pulmonary embolus. 2. Small to moderate area of consolidation in the right lower lobe along with minimal atelectasis in the lingula and posterior left upper lobe with scattered atelectasis. 3. Underlying chronic emphysematous changes and scattered scarring. V/Q scan: Indeterminate V/Q scan. Extensive bilateral perfusion defects with larger ventilation defects, may be due to COPD. However pulmonary embolism is not excluded. CXR: Chronic findings CT abdomen/pelvis with contrast: 1. Findings consistent with mild sigmoid diverticulitis. Inflammatory changes are decreased from prior. 2. Dilated colon containing stool in fluid with transition point at the colosigmoid junction. Consistent with colonic obstruction. Probably secondary to inflammatory changes or stricture. Malignancy cannot be excluded. 3. Bilateral renal cysts. No follow-up is necessary. 4. No loculated collection to suggest abscess. ASSESSMENT: 64-year-old female history COPD, JIGNESH, CHF, hypertension, non-insul in-dependent diabetes, diverticulitis with abscesses in the past, presents with abdominal pain found to have diverticulitis with colonic obstruction, UTI, acute on chronic respiratory failure likely 2/2 to COPD exacerbation. PLAN: # Chronic diverticulitis with possible stricture partial lbo -Hx of diverticulitis with abscess in past. -WBC wnl, afebrile -Multiple BM over 24 hours -AbdXR: above -Advanced diet further -C/w abx, pain control. bowel regimen changed -Surgery following #Acute on chronic respiratory failure likely multifactorial to HCAP, COPD exacerbation, obesity hypoventilation syndrome, noncompliance with home CPAP for JIGNESH -Saturating well on 3 L NC, mild wheezing -CTA: see above, ruled out PE -Sputum Cx pending -Decreased steroids to IV Q12H -PT: Desating to 84% following ambulation however recovers quickly to 90% with pursed lip breathing. Pt will benefit from skilled PT intervention during acute hospitalization to improve ambulation tolerance prior to d/c to home. -C/w vancomycin, meropenem, steroids, duonebs ATC, PRN -Pulmonary has evaluated #Gram pos bacteremia 1/4 bottles likely contaminate -repeated BCx NG -C/w vancomycin, meropenem for HCAP coverage # E. coli UTI -UCx e. coli -C/w abx above #HFpEF, not currently in exacerbation -BNP wnl -C/w home meds # JIGNESH -cpap with home pressures # DM -BS increasd with steroids -Started AM levemir -ISS. Frequent Accu-Cheks. Hypoglycemic precautions. # Hypertension -Continue home meds. Monitor and titrate # Obesity class III - Complicates care. Should follow-up with PCP for recommendations on weight loss. # Tobacco Smoker -Nicotine patch. Counseled to quit smoking. #GERD -PPI resumed # DVT prophylaxis - Lovenox DISPOSITION: Currently inpatient status. Plan is home when medically improved. Surgery following closely . VS, I&O, 24H, Fishbone Vital Signs/I&O Vital Signs Date Time Temp Pulse Resp B/P (MAP) Pulse Ox O2 Delivery O2 Flow Rate FiO2 06/22/20 14:00 97.6 93 17 127/83 (98) 92 Nasal Cannula 3.0 06/19/20 22:00 40 I&O- Last 24 Hours up to 6 AM 06/22/20 06:00 Intake Total 2775 ml Output Total 200 ml Balance 2575 ml Laboratory Data 24H LABS Laboratory Tests 2 06/21/20 20:18: Bedside Glucose (Misc Panel) 225H 06/22/20 05:56: Nucleated Red Blood Cells % (auto) 0.0, Anion Gap 3L, Glomerular Filtration Rate > 60.0, Calcium Level 9.1, Total Bilirubin 0.3, Aspartate Amino Transf (AST/SG OT) 21, Alanine Aminotransferase (ALT/SGPT) 43, Alkaline Phosphatase 76, Total Protein 5.8L, Albumin 2.9L, Albumin/Globulin Ratio 1.0L 06/22/20 11:15: Bedside Glucose (Misc Panel) 235H 06/22/20 16:35: Bedside Glucose (Misc Panel) 247H CBC/BMP Laboratory Tests 06/22/20 05:56 Microbiology Microbiology 06/21/20 Gram Stain - Final, Resulted 06/21/20 Sputum Culture, Resulted Pending 06/20/20 Blood Culture - Preliminary, Resulted No Growth after 48 hours. All Specime... 06/20/20 Blood Culture - Preliminary, Resulted No Growth after 48 hours. All Specime... 06/19/20 Blood Culture - Final, Complete Staphylococcus Warneri 06/19/20 Blood Culture - Preliminary, Resulted No Growth after 72 hours. All specime... 06/19/20 Urine Culture - Final, Complete Escherichia Coli Current Medications Current Medications Medications (Trade) Dose Ordered Sig/Selam Route PRN Reason Start Time Stop Time Status Last Admin Dose Admin Albuterol Sulfate (Proventil Neb) 2.5 mg Q4H PRN INH SHORTNESS OF BREATH 06/19/20 05:30 06/19/20 05:43 DC Albuterol Sulfate (Proventil, Ventolin Hfa) 2 puff Q4H PRN INH SHORTNESS OF BREATH 06/19/20 05:30 06/19/20 05:43 DC Albuterol/ Ipratropium (Duoneb (Ipr 0.5mg/Alb 2.5mg)) 3 ml Q4HP PRN NEB SOB/WHEEZING 06/19/20 05:30 Albuterol/ Ipratropium (Duoneb (Ipr 0.5mg/Alb 2.5mg)) 3 ml RQ6H NEB 06/19/20 08:00 06/22/20 12:37 Aspirin (Ecotrin) 81 mg DAILY PO 06/19/20 09:00 06/22/20 09:02 Budesonide/ Formoterol Fumarate (Symbicort 160/ 4.5mcg) 2 puff RBID INH 06/19/20 08:00 06/21/20 20:47 Dextrose (Dextrose 50%) 25 ml ASDIRECTED PRN IV SEE LABEL COMMENTS 06/19/20 05:45 Dextrose (Dextrose 50%) 25 ml ASDIRECTED PRN IV SEE LABEL COMMENTS 06/19/20 22:45 06/19/20 22:46 DC Enoxaparin Sodium (Lovenox) 40 mg DAILY SC 06/19/20 09:00 06/19/20 15:12 DC 06/19/20 13:44 Enoxaparin Sodium (Lovenox) 40 mg DAILY SC 06/21/20 09:00 06/22/20 09:00 Enoxaparin Sodium (Lovenox) 120 mg Q12H SC 06/19/20 21:00 06/20/20 11:06 DC 06/20/20 08:31 Fluticasone Propionate (Flonase 0.05% Nasal [place]) 2 spray DAILY NA 06/19/20 09:00 06/22/20 09:03 Furosemide (Lasix) 40 mg DAILY PO 06/19/20 09:00 06/22/20 09:02 Glucagon (Glucagon) 1 mg ASDIRECTED PRN SC SEE LABEL COMMENTS 06/19/20 05:45 Glucagon (Glucagon) 1 mg ASDIRECTED PRN SC SEE LABEL COMMENTS 06/19/20 22:45 06/19/20 22:46 DC Glucose (Glucose) 16 GM ASDIRECTED PRN PO SEE LABEL COMMENTS 06/19/20 05:45 Glucose (Glucose) 16 GM ASDIRECTED PRN PO SEE LABEL COMMENTS 06/19/20 22:45 06/19/20 22:46 DC Guaifenesin (Mucinex Tab Er) 600 mg BID PO 06/19/20 09:00 06/22/20 09:02 Home Med (Med Rec Complete!) ASDIRECTED XX 06/19/20 05:15 06/19/20 05:05 DC Insulin Detemir (Levemir Insulin) 8 units QAM OK 06/22/20 09:00 06/22/20 09:00 Insulin Human Lispro (HumaLOG INSULIN) SEE PROTOCOL TABLE AC OK 06/19/20 07:30 06/19/20 22:45 DC Insulin Human Lispro (HumaLOG INSULIN) SEE PROTOCOL TABLE AC OK 06/21/20 07:30 06/22/20 17:38 Insulin Human Lispro (HumaLOG INSULIN) SEE PROTOCOL TABLE QHS OK 06/19/20 21:00 06/19/20 22:45 DC Insulin Human Lispro (HumaLOG INSULIN) SEE PROTOCOL TABLE QHS OK 06/20/20 21:00 Insulin Human Lispro (HumaLOG INSULIN) See [facility] 06/20/20 00:00 06/20/20 20:13 DC 06/20/20 17:30 Meropenem 1 gm/IV Miscellaneous Supplies 50 ml @ 100 mls/hr Q8H IV 06/19/20 08:00 06/22/20 17:38 Methylprednisolone (SOLUmedrol) 60 mg Q12H IV 06/22/20 17:00 06/22/20 17:38 Methylprednisolone (SOLUmedrol) 60 mg Q8H IV 06/19/20 13:00 06/22/20 08:16 DC 06/22/20 04:37 Morphine Sulfate (Morphine Sulfate Inj) 2 mg Q4H PRN IV MODERATE PAIN (PS 5-7) 06/19/20 05:30 06/22/20 08:16 DC 06/20/20 13:02 Morphine Sulfate (Morphine Sulfate Inj) 4 mg Q30M PRN IV SEVERE PAIN (PS 8-10) 06/19/20 02:45 06/19/20 04:15 DC 06/19/20 04:14 Pantoprazole Sodium (Protonix) 40 mg DAILY IV 06/19/20 09:00 06/21/20 10:29 DC 06/21/20 10:08 Polyethylene Glycol (Miralax) 1 pkt BID PO 06/19/20 21:00 06/21/20 21:41 Sodium Chloride 1,000 ml @ 125 mls/hr Q8H IV 06/19/20 05:24 06/20/20 15:51 DC 06/20/20 04:37 Vancomycin HCl 1000 mg/IV Miscellaneous Supplies 1 each/ Dextrose 270 ml @ 270 mls/hr Q12H IV 06/20/20 12:00 06/22/20 13:15 Allergies Coded Allergies: Penicillins (Verified Allergy, Intermediate, HIVES, 05/08/19) pt has had cefdinir in the past Quinolones (Verified Allergy, Intermediate, RASH, 05/08/19) metronidazole (Verified Allergy, Mild, itching, 05/08/19) Sulfa (Sulfonamide Antibiotics) (Verified Adverse Reaction, Intermediate, VOMITING, BLISTERS, TACHYCARDIA, 05/08/19) Tetracyclines (Verified Adverse Reaction, Intermediate, TACHYCARDIA, BLISTERS, HIVES, 05/08/19) aripiprazole (Verified Adverse Reaction, Intermediate, TACHYCARDIA, 05/08/19) venlafaxine (Verified Adverse Reaction, Mild, INCREASED HR, 05/08/19) Macrolide Antibiotics (Verified Adverse Reaction, Unknown, ITCHY, HIVES, 05/08/19) HAS TAKEN AZITHROMYCIN W/O PROBLEM Rachel Stanton MD Jun 22, 2020 18:19
[2020-06-22] MEDS: OMEPRAZOLE 20 MG CAP PO SCH (18:32)
[2020-06-22] MEDS: NICOTINE 14 MG/24 HR TRANSDERMAL TD SCH (18:33)
[2020-06-22] MEDS ORDERED: ONDANSETRON 4MG/2ML VIAL IV PRN (20:30)
--- NOTE | 2020-06-22 20:42 | IPN ---
PROGRESS NOTE DATE: 06/22/2020 SUBJECTIVE: The patient tolerated her full diet and continues to have bowel movements and frequent bowel movements. She states that she having still some diarrheal bowel movements. She has not had any fevers, no chills. No nausea, no vomiting. She still has some significant shortness of breath. Her abdomen is soft, nontender, nondistended. She does have some mild overall distention that I feel is probably baseline for her. IMPRESSION AND PLAN: The patient has evidence of resolution of her obstructive looking picture. At this point my recommendation is that we increase her diet to a regular diet. If she tolerates this then the options are either to proceed with evaluation of the sigmoid colon with a barium enema to rule out a significant stricture or plan on discharging her to home with the understanding that she is really not an operative candidate at this time. If she has persistent GI complaints or partial obstructive symptoms, possibly colonic stenting may be an option for her although this is in the proximal sigmoid colon area, and I am not sure that would be amenable to stenting. I would defer that judgment to a business strategy manager. Otherwise we will see how she does with a regular diet at this time.
[2020-06-22] MEDS: DOCUSATE SODIUM 100MG CAPSULE PO SCH (21:50)
[2020-06-22 22:00] VITALS: BP 145/85
[2020-06-23] MEDS: VANCOMYCIN HCL 1,000 MG, VIAL MATE ADAPTER 1 EACH in D5W 250 ML IV SCH (00:13)
[2020-06-23] MEDS: IPRATROPIUM 0.5MG/ALBUTEROL 2.5MG INH SOL UD 3ML (DUONEB) NEB SCH ×4 (01:25→21:34)
[2020-06-23] MEDS: methylPREDNISolone 125MG 2ML VIAL IV SCH ×2 (05:26→16:29)
[2020-06-23 05:51] LABS: HEMATOCRIT 43.5 % (36.0-47.0); HEMOGLOBIN 13.7 g/dl (12.0-15.5); MEAN CORPUSCULAR HEMOGLOBIN 28.4 pg (27.0-33.0); MEAN CORPUSCULAR HGB CONC 31.5 g/dl (32.0-36.5); MEAN CORPUSCULAR VOLUME 90.1 fl (80.0-96.0); PLATELET COUNT, AUTOMATED 230 10^3/uL (150-450); RED BLOOD COUNT 4.83 10^6/uL (4.00-5.40); WHITE BLOOD COUNT 10.9 10^3/uL (4.0-10.0)
[2020-06-23 06:00] VITALS: BP 128/67
[2020-06-23 06:19] LABS: BILIRUBIN,TOTAL 0.3 MG/DL (0.2-1.0); CALCIUM LEVEL 9.3 MG/DL (8.8-10.2); CREATININE FOR GFR 1.04 MG/DL (0.55-1.30); POTASSIUM SERUM 3.8 MEQ/L (3.5-5.1); TOTAL PROTEIN 5.7 GM/DL (6.4-8.2)
[2020-06-23] MEDS: SYMBICORT 160/4.5MCG INHALER 6GM INH SCH ×2 (06:26→21:35)
[2020-06-23] MEDS: NICOTINE 14 MG/24 HR TRANSDERMAL TD SCH (08:11)
[2020-06-23] MEDS: HumaLOG INSULIN (NovoLOG) PER UNIT SC SCH ×4 (08:12→21:02)
[2020-06-23] MEDS: MEROPENEM INJ 1 GM in IV 1 EA IV SCH ×3 (08:12→23:09)
[2020-06-23] MEDS: ENOXAPARIN 40MG/0.4ML SYRINGE (J1650 PER 10MG) SC SCH (08:12)
[2020-06-23] MEDS: FLUTICASONE PROP 0.05% NASAL SPRAY 16 GM (FLONASE) SCH (08:13)
[2020-06-23] MEDS: guaiFENesin ER 600 MG TAB PO SCH ×2 (08:13→20:58)
[2020-06-23] MEDS: FUROSEMIDE 40 MG TAB PO SCH (08:13)
[2020-06-23] MEDS: LEVEMIR (INSULIN DETEMIR) 1 UNITS/0.01ML SC SCH (08:13)
[2020-06-23] MEDS: DOCUSATE SODIUM 100MG CAPSULE PO SCH ×2 (08:13→20:58)
[2020-06-23] MEDS: ASPIRIN 81 MG ENTERIC TAB PO SCH (08:13)
[2020-06-23] MEDS: OMEPRAZOLE 20 MG CAP PO SCH (08:13)
[2020-06-23 14:00] VITALS: BP 126/68
--- NOTE | 2020-06-23 20:15 | IPNPDOC ---
Date Seen The patient was seen on 06/23/20. Progress Note SUBJECTIVE: Saturating well on 3 L NC, tolerating advanced diet without issues. Sputum GS with multiple org, sputum Cx pending. She denies abd pain, increased SOB, chest pain, n/v. OBJECTIVE: PHYSICAL EXAMINATION: VS: Please see below Constitutional: Awake and alert, comfortable ENT: Sclera are clear, nasal cannula in place Neck: large diameter Respiratory: improved wheezing bilaterally, occasional rhonchi,. No rales Cardiovascular: RRR S1 and S2 are normal, no murmur Gastrointestinal: Abdomen is soft, obese, distended, nontender, hernia, BS present. No rebound tenderness. Musculoskeletal: ROM not tested in lower ext, +1 pitting edema in lower ext. : allison cath Neurologic: No focal neurological deficit Psych: Mood and affect appropriate Skin: Warm, dry, intact LABORATORY DATA: See below. MICROBIOLOGY: Blood culture 06/19/20: 1bottle anaerobic bottle positive for gram + cocci Blood culture 06/19/20: NG Blood cultures x 2 sets : NG at 24 hours UCx: E coli Sputum GS multiple organisms Sputum CX: pending IMAGING: CXR: Previously noted colonic distention has resolved. There are a few mildly dilated small bowel loops in the left upper quadrant probably representing a mild ileus. Abd XR 06/20/20: No bowel distention is seen. The previously noted distended large bowel appears normal in caliber. Mild air is scattered throughout non dilated small bowel loops. Residual intra venous contrast is seen in the kidneys and ureters and bladder. A Allison catheter is seen in the bladder. Metallic clips are seen in the abdomen and pelvis. CTA chest 06/20/20: 1. No evidence for pulmonary embolus. 2. Small to moderate area of consolidation in the right lower lobe along with minimal atelectasis in the lingula and posterior left upper lobe with scattered atelectasis. 3. Underlying chronic emphysematous changes and scattered scarring. V/Q scan: Indeterminate V/Q scan. Extensive bilateral perfusion defects with larger ventilation defects, may be due to COPD. However pulmonary embolism is not excluded. CXR: Chronic findings CT abdomen/pelvis with contrast: 1. Findings consistent with mild sigmoid diverticulitis. Inflammatory changes are decreased from prior. 2. Dilated colon containing stool in fluid with transition point at the colosigmoid junction. Consistent with colonic obstruction. Probably secondary to inflammatory changes or stricture. Malignancy cannot be excluded. 3. Bilateral renal cysts. No follow-up is necessary. 4. No loculated collection to suggest abscess. ASSESSMENT: 64-year-old female history COPD, JIGNESH, CHF, hypertension, [id number] diabetes, diverticulitis with abscesses in the past, presents with abdominal pain found to have diverticulitis with colonic obstruction, UTI, acute on chronic respiratory failure likely 2/2 to COPD exacerbation. PLAN: # Chronic diverticulitis with possible stricture partial lbo -Hx of diverticulitis with abscess in past. -WBC wnl, afebrile -Multiple BM over 24 hours -AbdXR: above -Tolerating advanced diet -C/w abx, pain control, BR -Per last surgery note: If she tolerates advanced diet then the options are either to proceed with evaluation of the sigmoid colon with a barium enema to rule out a significant stricture or plan on discharging her to home with the understanding that she is really not an operative candidate at this time. Would TB with them on 06/24/20 to see what plan would be. #Acute on chronic respiratory failure likely multifactorial to HCAP, COPD exacerbation, obesity hypoventilation syndrome, noncompliance with home CPAP for JIGNESH -Saturating well on 3 L NC -CTA: see above, ruled out PE -Sputum Cx pending -Decreased steroids to prednisone daily -PT: Pt's SpO2 does drop to 84% on 3LPM after pt toilets; requires 1-2 minutes seated rest to recover, likely due to excessive talking while trying to recover. No desat or LOB with ambulation into the hallway. Pt is at her functional baseline -D/joel vancomycin as MRSA neg, kept meropenem due to sputum cx pending. C/w steroids, duonebs ATC, PRN -Pulmonary has evaluated-nothing else needed #Gram pos bacteremia 1/4 bottles likely contaminate -repeated BCx NG -C/w vancomycin, meropenem for HCAP coverage # E. coli UTI -UCx e. coli -Completed treatment #HFpEF, not currently in exacerbation -BNP wnl -C/w home meds # JIGNESH -cpap with home pressures # DM -BS increased with steroids -Started AM levemir -ISS. Frequent Accu-Cheks. Hypoglycemic precautions. # Hypertension -Continue home meds. Monitor and titrate # Obesity class III - Complicates care. Should follow-up with PCP for recommendations on weight loss. # Tobacco Smoker -Nicotine patch. Counseled to quit smoking. #GERD -PPI resumed # DVT prophylaxis - Lovenox DISPOSITION: Currently inpatient status. Once sputum cx returns, can likely d/c home. Would TB with surgery to see if they would suggest anything else. VS, I&O, 24H, Fishbone Vital Signs/I&O Vital Signs Date Time Temp Pulse Resp B/P (MAP) Pulse Ox O2 Delivery O2 Flow Rate FiO2 06/23/20 14:00 98.1 112 22 126/68 (87) 90 Nasal Cannula 3.0 06/19/20 22:00 40 I&O- Last 24 Hours up to 6 AM 06/23/20 06:00 Intake Total 3610 ml Output Total 0 ml Balance 3610 ml Laboratory Data 24H LABS Laboratory Tests 2 06/22/20 21:55: Bedside Glucose (Misc Panel) 268H 06/23/20 05:36: Nucleated Red Blood Cells % (auto) 0.0, Anion Gap 6L, Glomerular Filtration Rate 57.0, Calcium Level 9.3, Total Bilirubin 0.3, Aspartate Amino Transf (AST/SGOT) 37, Alanine Aminotransferase (ALT/SGPT) 86H, Alkaline Phosphatase 72, Total Protein 5.7L, Albumin 3.0L, Albumin/Globulin Ratio 1.1L 06/23/20 11:19: Bedside Glucose (Misc Panel) 278H 06/23/20 16:25: Bedside Glucose (Misc Panel) 299H CBC/BMP Laboratory Tests 06/23/20 05:36 Microbiology Microbiology 06/23/20 Eye/Ear/Nose/Throat Culture, Received Pending 06/21/20 Gram Stain - Final, Resulted 06/21/20 Sputum Culture, Resulted Pending 06/20/20 Blood Culture - Preliminary, Resulted No Growth after 72 hours. All specime... 06/20/20 Blood Culture - Preliminary, Resulted No Growth after 72 hours. All specime... 06/19/20 Blood Culture - Final, Complete Staphylococcus Warneri 06/19/20 Blood Culture - Preliminary, Resulted No Growth after 72 hours. All specime... 06/19/20 Urine Culture - Final, Complete Escherichia Coli Current Medications Current Medications Medications (Trade) Dose Ordered Sig/Selam Route PRN Reason Start Time Stop Time Status Last Admin Dose Admin Albuterol Sulfate (Proventil Neb) 2.5 mg Q4H PRN INH SHORTNESS OF BREATH 06/19/20 05:30 06/19/20 05:43 DC Albuterol Sulfate (Proventil, Ventolin Hfa) 2 puff Q4H PRN INH SHORTNESS OF BREATH 06/19/20 05:30 06/19/20 05:43 DC Albuterol/ Ipratropium (Duoneb (Ipr 0.5mg/Alb 2.5mg)) 3 ml Q4HP PRN NEB SOB/WHEEZING 06/19/20 05:30 Albuterol/ Ipratropium (Duoneb (Ipr 0.5mg/Alb 2.5mg)) 3 ml RQ6H NEB 06/19/20 08:00 06/23/20 14:17 Aspirin (Ecotrin) 81 mg DAILY PO 06/19/20 09:00 06/23/20 08:13 Budesonide/ Formoterol Fumarate (Symbicort 160/ 4.5mcg) 2 puff RBID INH 06/19/20 08:00 06/23/20 06:26 Dextrose (Dextrose 50%) 25 ml ASDIRECTED PRN IV SEE LABEL COMMENTS 06/19/20 05:45 Dextrose (Dextrose 50%) 25 ml ASDIRECTED PRN IV SEE LABEL COMMENTS 06/19/20 22:45 06/19/20 22:46 DC Docusate Sodium (Colace) 100 mg BID PO 06/22/20 21:00 06/23/20 08:13 Enoxaparin Sodium (Lovenox) 40 mg DAILY SC 06/19/20 09:00 06/19/20 15:12 DC 06/19/20 13:44 Enoxaparin Sodium (Lovenox) 40 mg DAILY SC 06/21/20 09:00 06/23/20 08:12 Enoxaparin Sodium (Lovenox) 120 mg Q12H SC 06/19/20 21:00 06/20/20 11:06 DC 06/20/20 08:31 Fluticasone Propionate (Flonase 0.05% Nasal [place]) 2 spray DAILY NA 06/19/20 09:00 06/23/20 08:13 Furosemide (Lasix) 40 mg DAILY PO 06/19/20 09:00 06/23/20 08:13 Glucagon (Glucagon) 1 mg ASDIRECTED PRN SC SEE LABEL COMMENTS 06/19/20 05:45 Glucagon (Glucagon) 1 mg ASDIRECTED PRN SC SEE LABEL COMMENTS 06/19/20 22:45 06/19/20 22:46 DC Glucose (Glucose) 16 GM ASDIRECTED PRN PO SEE LABEL COMMENTS 06/19/20 05:45 Glucose (Glucose) 16 GM ASDIRECTED PRN PO SEE LABEL COMMENTS 06/19/20 22:45 06/19/20 22:46 DC Guaifenesin (Mucinex Tab Er) 600 mg BID PO 06/19/20 09:00 06/23/20 08:13 Home Med (Med Rec Complete!) ASDIRECTED XX 06/19/20 05:15 06/19/20 05:05 DC Insulin Detemir (Levemir Insulin) 8 units QAM SC 06/22/20 09:00 06/23/20 08:13 Insulin Human Lispro (HumaLOG INSULIN) SEE PROTOCOL TABLE AC IL 06/19/20 07:30 06/19/20 22:45 DC Insulin Human Lispro (HumaLOG INSULIN) SEE PROTOCOL TABLE AC IL 06/21/20 07:30 06/23/20 17:20 Insulin Human Lispro (HumaLOG INSULIN) SEE PROTOCOL TABLE QHS IL 06/19/20 21:00 06/19/20 22:45 DC Insulin Human Lispro (HumaLOG INSULIN) SEE PROTOCOL TABLE QHS IL 06/20/20 21:00 06/22/20 22:14 Insulin Human Lispro (HumaLOG INSULIN) See Protocol Table [id number] 06/20/20 00:00 06/20/20 20:13 DC 06/20/20 17:30 Meropenem 1 gm/IV Miscellaneous Supplies 50 ml @ 100 mls/hr Q8H IV 06/19/20 08:00 06/23/20 16:29 Methylprednisolone (SOLUmedrol) 60 mg Q12H IV 06/22/20 17:00 06/23/20 19:57 DC 06/23/20 16:29 Methylprednisolone (SOLUmedrol) 60 mg Q8H IV 06/19/20 13:00 06/22/20 08:16 DC 06/22/20 04:37 Morphine Sulfate (Morphine Sulfate Inj) 2 mg Q4H PRN IV MODERATE PAIN (PS 5-7) 06/19/20 05:30 06/22/20 08:16 DC 06/20/20 13:02 Morphine Sulfate (Morphine Sulfate Inj) 4 mg Q30M PRN IV SEVERE PAIN (PS 8-10) 06/19/20 02:45 06/19/20 04:15 DC 06/19/20 04:14 Nicotine (Nicoderm Cq 14mg) 1 patch DAILY TD 06/22/20 09:00 06/23/20 08:11 Omeprazole (PriLOSEC) 20 mg DAILY PO 06/22/20 09:00 06/23/20 08:13 Ondansetron HCl (ZOFRAN INJection) 4 mg Q8HP PRN IV NAUSEA OR VOMITING 06/22/20 20:30 06/22/20 21:50 Pantoprazole Sodium (Protonix) 40 mg DAILY IV 06/19/20 09:00 06/21/20 10:29 DC 06/21/20 10:08 Polyethylene Glycol (Miralax) 1 pkt BID PO 06/19/20 21:00 06/22/20 18:13 DC 06/21/20 21:41 Polyethylene Glycol (Miralax) 1 pkt DAILYPRN PRN PO CONSTIPATION 06/22/20 18:15 06/23/20 08:16 Prednisone (Deltasone) 60 mg DAILY PO 06/24/20 09:00 Sodium Chloride 1,000 ml @ 125 mls/hr Q8H IV 06/19/20 05:24 06/20/20 15:51 DC 06/20/20 04:37 Vancomycin HCl 1000 mg/IV Miscellaneous Supplies 1 each/ Dextrose 270 ml @ 270 mls/hr Q12H IV 06/20/20 12:00 06/23/20 09:57 DC 06/23/20 00:13 Allergies Coded Allergies: Penicillins (Verified Allergy, Intermediate, HIVES, 05/08/19) pt has had cefdinir in the past Quinolones (Verified Allergy, Intermediate, RASH, 05/08/19) metronidazole (Verified Allergy, Mild, itching, 05/08/19) Sulfa (Sulfonamide Antibiotics) (Verified Adverse Reaction, Intermediate, VOMITING, BLISTERS, TACHYCARDIA, 05/08/19) Tetracyclines (Verified Adverse Reaction, Intermediate, TACHYCARDIA, BLISTERS, HIVES, 05/08/19) aripiprazole (Verified Adverse Reaction, Intermediate, TACHYCARDIA, 05/08/19) venlafaxine (Verified Adverse Reaction, Mild, INCREASED HR, 05/08/19) Macrolide Antibiotics (Verified Adverse Reaction, Unknown, ITCHY, HIVES, 05/08/19) HAS TAKEN AZITHROMYCIN W/O PROBLEM Rachel Stanton MD Jun 23, 2020 20:15
[2020-06-23 22:00] VITALS: BP 162/94
[2020-06-24] MEDS: IPRATROPIUM 0.5MG/ALBUTEROL 2.5MG INH SOL UD 3ML (DUONEB) NEB SCH ×4 (02:00→20:00)
[2020-06-24 06:00] VITALS: BP 103/69
[2020-06-24] MEDS ORDERED: FLEET ENEMA PR ONE (06:00)
[2020-06-24 07:12] LABS: HEMATOCRIT 44.9 % (36.0-47.0); MEAN CORPUSCULAR HEMOGLOBIN 28.2 pg (27.0-33.0); MEAN CORPUSCULAR HGB CONC 31.2 g/dl (32.0-36.5); MEAN CORPUSCULAR VOLUME 90.3 fl (80.0-96.0); PLATELET COUNT, AUTOMATED 261 10^3/uL (150-450); RED BLOOD COUNT 4.97 10^6/uL (4.00-5.40); WHITE BLOOD COUNT 14.2 10^3/uL (4.0-10.0)
[2020-06-24] MEDS: SYMBICORT 160/4.5MCG INHALER 6GM INH SCH ×2 (07:20→20:00)
[2020-06-24] MEDS: HumaLOG INSULIN (NovoLOG) PER UNIT SC SCH ×4 (07:30→21:13)
[2020-06-24 07:43] LABS: BILIRUBIN,TOTAL 0.4 MG/DL (0.2-1.0); CALCIUM LEVEL 9.3 MG/DL (8.8-10.2); CREATININE FOR GFR 1.04 MG/DL (0.55-1.30); POTASSIUM SERUM 3.9 MEQ/L (3.5-5.1); TOTAL PROTEIN 5.9 GM/DL (6.4-8.2)
[2020-06-24] MEDS ORDERED: LIQUID POLIBAR PLUS 105% w/v 1900ML BTL As Ordered ONE (08:00)
[2020-06-24] MEDS: MEROPENEM INJ 1 GM in IV 1 EA IV SCH (08:06)
--- NOTE | 2020-06-24 09:49 | IPNPDOC ---
Text Note Date of Service The patient was seen on 06/24/20. NOTE SUBJECTIVE: Patient seen and examined at bedside. No acute overnight events reported. Patient has no new medical complaints this morning. States this is the best she has ever felt in some time. OBJECTIVE: VS: Please see below General: NAD, lying comfortably in bed HEENT: NC/AT, EOMI, nasal cannula in place Chest: CTA B/L, minimal scattered wheezes Cardiovascular: +S1S2, RRR Abd: soft, NT, +BS, obese Ext: trace edema ASSESSMENT: 64-year-old female with PMHx COPD, JIGNESH, CHF, hypertension, [id number] diabetes, diverticulitis with abscesses in the past, presents with abdominal pain found to have diverticulitis with colonic obstruction, UTI, acute on chronic respiratory failure likely 2/2 to COPD exacerbation. PLAN: # Chronic diverticulitis with possible stricture partial sbo -Hx of diverticulitis with abscess in past. -WBC wnl, afebrile -Multiple BM over 24 hours -tolerating diet -C/w abx, pain control, BR -plan for barium swallow today - follow as per surgery - assistance appreciated #Acute on chronic respiratory failure likely multifactorial to HCAP, COPD exacerbation, obesity hypoventilation syndrome, noncompliance with home CPAP for JIGNESH -Saturating well on 3 L NC -Sputum Cx pending -prednisone -PT: Pt's SpO2 does drop to 84% on 3LPM after pt toilets; requires 1-2 minutes seated rest to recover, likely due to excessive talking while trying to recover. No desat or LOB with ambulation into the hallway. Pt is at her functional baseline -D/joel vancomycin as MRSA neg, kept meropenem due to sputum cx pending. C/w steroids, duonebs ATC, PRN -Pulmonary has evaluated-nothing else needed #Gram pos bacteremia 1/4 bottles likely contaminate -repeated BCx NG -C/w vancomycin, meropenem for HCAP coverage - MRSA screen negative - consider d/c vanco # E. coli UTI -UCx e. coli -Completed treatment #HFpEF, not currently in exacerbation -BNP wnl -C/w home meds # JIGNESH -cpap with home pressures # DM -BS increased with steroids -Started AM levemir -ISS. Frequent Accu-Cheks. Hypoglycemic precautions. # Hypertension -Continue home meds. Monitor and titrate # Obesity class III - Complicates care. Should follow-up with PCP for recommendations on weight loss. # Tobacco Smoker -Nicotine patch. Counseled to quit smoking. #GERD -PPI resumed # DVT prophylaxis - Lovenox DISPOSITION: Follow up surgery, barium swallow, sputum cultures. VS,Fishbone, I+O VS, Fishbone, I+O Laboratory Tests 06/24/20 06:33 Vital Signs Date Time Temp Pulse Resp B/P (MAP) Pulse Ox O2 Delivery O2 Flow Rate FiO2 06/24/20 06:00 97.7 71 20 103/69 (80) 94 Nasal Cannula 3.0 06/19/20 22:00 40 I&O- Last 24 Hours up to 6 AM 06/24/20 06:00 Intake Total 1370 ml Balance 1370 ml MOISES REAGAN MD Jun 24, 2020 09:49
[2020-06-24] MEDS ORDERED: diphenhydrAMINE 25MG CAP PO PRN (11:00)
[2020-06-24] MEDS: LEVEMIR (INSULIN DETEMIR) 1 UNITS/0.01ML SC SCH (11:24)
[2020-06-24] MEDS: LevoFLOXacin 750 MG TABLET PO SCH (11:29)
[2020-06-24] MEDS: ASPIRIN 81 MG ENTERIC TAB PO SCH (11:29)
[2020-06-24] MEDS: DOCUSATE SODIUM 100MG CAPSULE PO SCH ×2 (11:29→21:13)
[2020-06-24] MEDS: guaiFENesin ER 600 MG TAB PO SCH ×2 (11:29→21:13)
[2020-06-24] MEDS: OMEPRAZOLE 20 MG CAP PO SCH (11:29)
[2020-06-24] MEDS: NICOTINE 14 MG/24 HR TRANSDERMAL TD SCH (11:30)
[2020-06-24] MEDS: FUROSEMIDE 40 MG TAB PO SCH (11:30)
[2020-06-24] MEDS: ENOXAPARIN 40MG/0.4ML SYRINGE (J1650 PER 10MG) SC SCH (11:30)
[2020-06-24] MEDS: predniSONE 20 MG TAB PO SCH (11:30)
[2020-06-24] MEDS: FLUTICASONE PROP 0.05% NASAL SPRAY 16 GM (FLONASE) SCH (11:31)
[2020-06-24 14:00] VITALS: BP 140/68
--- NOTE | 2020-06-24 17:05 | REP ---
INDICATION: eval stricture at rectosigmoid junction. COMPARISON: None TECHNIQUE: The procedure was performed by JOEL Cam, under the direct supervision of Dr. Hernandez. The images were reviewed with Dr. Dr. Hernandez. Liquid barium was instilled into the colon and retrograde flow. FINDINGS: The rubber engraver film shows no organomegaly, or pathological masses. The intestinal gas pattern is unremarkable. The colon is normal in position and contour. There are multiple diverticula noted throughout the colon. There is an area of diffuse irregularity and narrowing of the sigmoid colon measuring approximately 10 cm in length. This could be due to chronic diverticulitis, underlying neoplasm cannot be excluded. Evaluation of the transverse and right colon is limited due to this partial obstruction, limiting passage of barium to the transverse and right colon, as well as retained fecal material. There is incomplete emptying of the colon possibly due to the sigmoid structure. IMPRESSION: 1. Diffuse irregularity and narrowing of the sigmoid colon measuring approximately 10 cm in length. 2. Limited evaluation of the transverse and right colon. 3. Incomplete emptying of colon. 0.3 minutes of fluoroscopy time was utilized for this procedure. Some fluoroscopic images are performed with last image hold technology. These images require no additional radiation <Electronically signed by Anel Ayala > 06/24/20 1305 <Electronically signed by Herminio Hernandez > 06/24/20 1702
[2020-06-24 22:00] VITALS: BP 120/63
[2020-06-25] MEDS: IPRATROPIUM 0.5MG/ALBUTEROL 2.5MG INH SOL UD 3ML (DUONEB) NEB SCH ×2 (01:52→07:37)
[2020-06-25] MEDS: LevoFLOXacin 750 MG TABLET PO SCH (05:15)
[2020-06-25 06:00] VITALS: BP 138/66
[2020-06-25 06:31] LABS: HEMOGLOBIN 13.3 g/dl (12.0-15.5); MEAN CORPUSCULAR HEMOGLOBIN 27.4 pg (27.0-33.0); MEAN CORPUSCULAR HGB CONC 30.9 g/dl (32.0-36.5); MEAN CORPUSCULAR VOLUME 88.5 fl (80.0-96.0); PLATELET COUNT, AUTOMATED 249 10^3/uL (150-450); RED BLOOD COUNT 4.86 10^6/uL (4.00-5.40); WHITE BLOOD COUNT 13.2 10^3/uL (4.0-10.0)
[2020-06-25 07:01] LABS: ALBUMIN 2.9 GM/DL (3.2-5.2); ALT/SGPT 93 U/L (12-78); BILIRUBIN,TOTAL 0.3 MG/DL (0.2-1.0); BLOOD UREA NITROGEN 27 MG/DL (7-18); CALCIUM LEVEL 9.1 MG/DL (8.8-10.2); CARBON DIOXIDE LEVEL 30 MEQ/L (21-32); CHLORIDE LEVEL 106 MEQ/L (98-107); CREATININE FOR GFR 0.97 MG/DL (0.55-1.30); GLOMERULAR FILTRATION RATE > 60.0 (>45); GLUCOSE, FASTING 160 MG/DL (70-100); POTASSIUM SERUM 3.4 MEQ/L (3.5-5.1); SODIUM LEVEL 142 MEQ/L (136-145); TOTAL PROTEIN 5.7 GM/DL (6.4-8.2)
[2020-06-25] MEDS ORDERED: POTASSIUM CHLORIDE 10 MEQ SR TABLET PO ONE (07:30)
[2020-06-25] MEDS: SYMBICORT 160/4.5MCG INHALER 6GM INH SCH (07:38)
--- NOTE | 2020-06-25 07:48 | IPNPDOC ---
Text Note Date of Service The patient was seen on 06/25/20. NOTE I followed up on the [place] last night and today. She is doing well. She is tolerating regular diet without any increased nausea, bloating, abdominal cramping, nausea or vomiting. I reviewed with her the barium enema was done last night. She still looks mildly short of breath requiring oxygen though she seems to be able to tolerate this well as this is not affecting her speech which is voluble. She is on nasal cannula only at this point. Vital signs stable Afebrile Non-tachycardic 90% at 3 L nasal cannula On examination patient sitting on the bed, very comfortable in appearance Pursed lips with nasal cannula, breathing is not labored, good airflow bilaterally, no wheezing, Abdomen is round, minimally distended most prominent in the upper abdomen, slightly tympanitic to percussion. No tenderness over the left lower quadrant and suprapubic area. No rebound or guarding Barium enema study was reviewed with the patient. There is about a 10 cm area of the mid to proximal sigmoid colon did appear strictured. This does not appear to be apple core type of narrowing. There is some mild distention of the more proximal colon. Impression and plan Partial colonic obstruction most likely secondary to diverticular stricture. Her most recent colonoscopy was in 2017 describing the sigmoid colon diverticulosis. No evidence of malignancy found during that time. She has had multiple prior diverticulitis episodes, the most recent prior to this was in 2019 for which she had an abscess drained. She has improved with laxatives and is having soft bowel movements. At this point, I think we can hold off on any emergent or urgent surgical intervention and try to get her as close to baseline on her COPD and even potentially getting her new PFT studies, proper risk assessment for general anesthesia as I think she has significant narrowing on her sigmoid colon and may potentially obstruct in the future. I discussed the options with her. If she is or what remained to be high risk for surgery then a quick diversion (i.e. colostomy) may be all that she can tolerate. If her pulmonary condition further improve as 12 point that she could tolerate a few hours of general anesthesia then resection with possible anastomosis is a possibility if she can undergo bowel prep as an elective surgery. She can go home on regular regimen of his laxatives. She seems to be tolerating MiraLAX well. She can take it every day or every other day depending on her stool output. She would need close follow-up with me and her hole puncher strap who has and circumflex use or would need a referral to a local hole puncher strap to help with optimizing her for possible surgery. VS,Fishbone, I+O VS, Fishbone, I+O Laboratory Tests 06/25/20 05:50 Vital Signs Date Time Temp Pulse Resp B/P (MAP) Pulse Ox O2 Delivery O2 Flow Rate FiO2 06/25/20 06:00 97.7 64 20 138/66 (90) 100 NIPPV (BIPAP/CPAP) 06/24/20 22:00 3.0 06/19/20 22:00 40 I&O- Last 24 Hours up to 6 AM 06/25/20 06:00 Intake Total 1110 ml Output Total 1325 ml Balance -215 ml KELLI STOLL MD Jun 25, 2020 07:48
[2020-06-25 07:54] LABS: MAGNESIUM LEVEL 2.7 MG/DL (1.8-2.4)
[2020-06-25] MEDS: ASPIRIN 81 MG ENTERIC TAB PO SCH (07:58)
[2020-06-25] MEDS: guaiFENesin ER 600 MG TAB PO SCH (07:58)
[2020-06-25] MEDS: FUROSEMIDE 40 MG TAB PO SCH (07:59)
[2020-06-25] MEDS: OMEPRAZOLE 20 MG CAP PO SCH (07:59)
[2020-06-25] MEDS: HumaLOG INSULIN (NovoLOG) PER UNIT SC SCH ×2 (07:59→11:56)
[2020-06-25] MEDS: DOCUSATE SODIUM 100MG CAPSULE PO SCH (07:59)
[2020-06-25] MEDS: NICOTINE 14 MG/24 HR TRANSDERMAL TD SCH (08:00)
[2020-06-25] MEDS: predniSONE 20 MG TAB PO SCH (08:00)
[2020-06-25] MEDS: LEVEMIR (INSULIN DETEMIR) 1 UNITS/0.01ML SC SCH (08:00)
[2020-06-25] MEDS: FLUTICASONE PROP 0.05% NASAL SPRAY 16 GM (FLONASE) SCH (08:00)
[2020-06-25] MEDS: ENOXAPARIN 40MG/0.4ML SYRINGE (J1650 PER 10MG) SC SCH (08:01)
[2020-06-25] MEDS ORDERED: PRED10TA2 PO (09:23)
[2020-06-25] MEDS ORDERED: PEG1POW PO (09:23)
[2020-06-25] MEDS ORDERED: LEVO750T13 PO (09:23)
--- NOTE | 2020-06-25 14:56 | DS.PDOC ---
Discharge Summary General Date of Admission Jun 19, 2020 at 05:24 Date of Discharge 06/25/20 Specialist/Consultants Involve surgery, pulmonary Discharge Summary PROCEDURES PERFORMED DURING STAY: [None]. DISCHARGE DIAGNOSES: #partial colonic obstruction - secondary to diverticular stricture #advanced COPD #acute/chronic hypoxic respiratory failure - multifactorial - PNA, JIGNESH, OHS, C OPD exacerbation #medical non-compliance #E. Coli UTI #HFpEF #JIGNESH #DM #HTN #obesity #nicotine abuse COMPLICATIONS/CHIEF COMPLAINT: Diverticulitis Lg Intestine,Lg Bowel Obstruction. HISTORY OF PRESENT ILLNESS: 64-year-old female history COPD, JIGNESH, CHF, hypertension, [id number] diabetes, diverticulitis with abscesses in the past, presents with abdominal pain found to have diverticulitis with colonic obstruction possibly from inflammation or stricture. Patient endorses a 3 day history of progressively worsening abdominal pain mostly located along the right lower quadrant and left lower quadrants as well as dysuria. Says her abdominal pain is associated with nausea and vomiting daily. Denies any fevers or chills. Denies any chest pain or shortness of breath. Endorses some wheezing which she thinks is her baseline. Patient denies any bloody bowel movements. She says she has a bowel movement yesterday evening which was soft but small. She has not tried to take any medications for her pain nothing alleviates or exacerbates her pain. She endorses that her abdominal pain is very reminiscent of prior episode of diverticulitis she experienced In the emergency department CT scan of the abdomen was done and confirmed diverticulitis with colonic obstruction. She was started on cefepime due to her multiple drug allergies. HOSPITAL COURSE: Patient was admitted for further evaluation and treatment. She was seen in consultation by surgery and pulmonology. Her acute on chronic r espiratory failure was deemed to be multifactorial secondary to pneumonia, COPD exacerbation, obesity hypoventilation syndrome, noncompliance with home CPAP. She was treated with antibiotics based on her sputum culture as well as steroid therapy. He was discharged with Levaquin, which she tolerated well while in the hospital with regards to her diverticulitis. She was seen and evaluated by surgery and underwent barium enema for further evaluation. This was deemed to be chronic diverticulitis with a partial colonic obstruction, intervention was deemed to be nonurgent and any intervention was also deemed to be high risk given her respiratory comorbidities. Case was also discussed with gastroen terology plan is for discharge home with outpatient follow-up quickly with surgery and pulmonary in order to optimize her respiratory status plan was discussed at length with patient at bedside who voiced full understanding. The importance of quitting smoking was also discussed at length at bedside. DISCHARGE MEDICATIONS: Please see below. ALLERGIES: Please see below. PHYSICAL EXAMINATION ON DISCHARGE: VS: Please see below General: NAD, lying comfortably in bed HEENT: NC/AT, EOMI, nasal cannula in place Chest: CTA B/L, minimal scattered wheezes Cardiovascular: +S1S2, RRR Abd: soft, NT, +BS, obese Ext: trace edema LABORATORY DATA: Please see below. ACTIVITY: [As tolerated]. DISPOSITION: Home, Self-Care. DISCHARGE INSTRUCTIONS: 1. Follow up PCP in 3-5 days. 2. Follow up with surgery as scheduled. 3. Follow up with pulmonary as scheduled. DISCHARGE CONDITION: [Stable]. TIME SPENT ON DISCHARGE: 40 minutes. Vital Signs/I&Os Vital Signs Date Time Temp Pulse Resp B/P (MAP) Pulse Ox O2 Delivery O2 Flow Rate FiO2 06/25/20 09:00 3.0 06/25/20 06:00 97.7 64 20 138/66 (90) 100 NIPPV (BIPAP/CPAP) 06/19/20 22:00 40 I&O- Last 24 Hours up to 6 AM 06/25/20 06:00 Intake Total 1110 ml Output Total 1325 ml Balance -215 ml Laboratory Data Labs 24H Laboratory Tests 2 06/24/20 16:32: Bedside Glucose (Misc Panel) 285H 06/24/20 20:50: Bedside Glucose (Misc Panel) 310H 06/25/20 05:50: Nucleated Red Blood Cells % (auto) 0.0, Anion Gap 6L, Glomerular Filtration Rate > 60.0, Calcium Level 9.1, Magnesium Level 2.7H, Total Bilirubin 0.3, Aspartate Amino Transf (AST/SGOT) 21, Alanine Aminotransferase (ALT/SGPT) 93H, Alkaline Phosphatase 67, Total Protein 5.7L, Albumin 2.9L, Albumin/Globulin Ratio 1.0L 06/25/20 11:18: Bedside Glucose (Misc Panel) 203H CBC/BMP Laboratory Tests 06/25/20 05:50 FSBS Laboratory Tests Test 06/24/20 16:32 06/24/20 20:50 1/20/21 11:18 Range/Units Bedside Glucose (Misc Panel) 285 310 203 80-115 MG/DL Microbiology Microbiology 06/23/20 Eye/Ear/Nose/Throat Culture - Final, Complete 06/21/20 Gram Stain - Final, Complete 06/21/20 Sputum Culture - Final, Complete Stenotrophomonas Maltophilia 06/20/20 Blood Culture - Final, Complete NO GROWTH AFTER 5 DAYS 06/20/20 Blood Culture - Final, Complete NO GROWTH AFTER 5 DAYS 06/19/20 Blood Culture - Final, Complete Staphylococcus Warneri 06/19/20 Blood Culture - Final, Complete NO GROWTH AFTER 5 DAYS 06/19/20 Urine Culture - Final, Complete Escherichia Coli Discharge Medications Scheduled Aspirin (Aspirin EC) 81 Mg Tabec, 81 MG PO DAILY, (Reported) Budesonide/Formoterol (Symbicort 160-4.5 Mcg Inhaler) 6 Gm Hfa.aer.ad, 2 PUFF INH BID, (Reported) Fluticasone Propionate (Flonase Allergy Relief) 9.9 Ml Ramer.susp, 2 SPRAYS NA DAILY, (Reported) Furosemide (Furosemide) 40 Mg Tab, 40 MG PO DAILY, (Reported) Guaifenesin (Mucinex) 600 Mg Tab.er.12h, 600 MG PO BID, (Reported) Levofloxacin (Levofloxacin) 750 Mg Tablet, 750 MG PO DAILY@06 Nicotine (Nicotine Patch) 21 Mg Patch.td24, 1 PATCH TOP DAILY, (Reported) APPLIES TO ARMS OR CHEST Omeprazole (Omeprazole) 20 Mg Capsule.dr, 20 MG PO DAILY, (Reported) Prednisone (Prednisone) 10 Mg Tablet, 10 MG PO TAPER Take 4 tabs daily x 1 days, then 3 tabs daily x 1 days, then 2 tabs daily x 1 days, then 1 tab daily x 1 days and stop Umeclidinium [place] (Incruse Ellipta) 62.5 Mcg Blst.w.dev, 1 PUFF INH DAILY, (Reported) Scheduled PRN Albuterol Sulf (Albuterol Sulfate) 2.5 Mg/3 Ml Nebu, 2.5 MG INH Q4H PRN for SHORTNESS OF BREATH, (Reported) Albuterol Sulfate (Proair Hfa) 8.5 Gm Hfa.aer.ad, 2 PUFF INH Q4H PRN for SHORTNESS OF BREATH, (Reported) Polyethylene Glycol 3350 (Polyethylene Glycol 3350) 17 Gm Powd.pack, 1 PKT PO Q48H PRN for CONSTIPATION Tramadol HCl (Tramadol HCl) 50 Mg Tablet, 50 MG PO Q6H PRN for PAIN, (Reported) Allergies Coded Allergies: Penicillins (Verified Allergy, Intermediate, HIVES, 05/08/19) pt has had cefdinir in the past Quinolones (Verified Allergy, Intermediate, RASH, 05/08/19) metronidazole (Verified Allergy, Mild, itching, 05/08/19) Sulfa (Sulfonamide Antibiotics) (Verified Adverse Reaction, Intermediate, VOMITING, BLISTERS, TACHYCARDIA, 05/08/19) Tetracyclines (Verified Adverse Reaction, Intermediate, TACHYCARDIA, BLISTERS, HIVES, 05/08/19) aripiprazole (Verified Adverse Reaction, Intermediate, TACHYCARDIA, 9) venlafaxine (Verified Adverse Reaction, Mild, INCREASED HR, 05/08/19) Macrolide Antibiotics (Verified Adverse Reaction, Unknown, ITCHY, HIVES, 05/08/19) HAS TAKEN AZITHROMYCIN W/O PROBLEM MOISES REAGAN MD Jun 25, 2020 14:56
== END 2020-06-25 12:51 | disposition home or self-care (01) | DRG 391 ==
LOC: M ED 01:06 → M ED INP 05:24 → M MSPAV 09:45
PROVIDERS: ADMIT Family Medicine; ATTEND Internal Medicine
DX: K57.32 Diverticulitis of large intestine without perforation or abscess without bleeding (principal); J96.21 Acute and chronic respiratory failure with hypoxia; J18.9 Pneumonia, unspecified organism; N39.0 Urinary tract infection, site not specified; I50.32 Chronic diastolic (congestive) heart failure; Z68.41 Body mass index [BMI] 40.0-44.9, adult; J44.1 Chronic obstructive pulmonary disease with (acute) exacerbation; E66.01 Morbid (severe) obesity due to excess calories; I11.0 Hypertensive heart disease with heart failure; B96.29 Other Escherichia coli [E. coli] as the cause of diseases classified elsewhere; Z91.19 Patient's noncompliance with other medical treatment and regimen; E11.9 Type 2 diabetes mellitus without complications; G47.33 Obstructive sleep apnea (adult) (pediatric); Z79.899 Other long term (current) drug therapy; Z79.82 Long term (current) 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; Z88.0 Allergy status to penicillin; Z88.8 Allergy status to other drugs, medicaments and biological substances; Z88.2 Allergy status to sulfonamides; I27.20 Pulmonary hypertension, unspecified; K21.9 Gastro-esophageal reflux disease without esophagitis; K44.9 Diaphragmatic hernia without obstruction or gangrene; F17.210 Nicotine dependence, cigarettes, uncomplicated

== ENCOUNTER 2020-07-31 13:59 | Outpatient (RCR) | payer OTHER, MEDICAID ==
[~2020-07-31 13:59] MED LIST changes: +ASPI-569 PO; -ASPI81TAEC PO; +FAMO40TA3; +LEVO750T13 PO; +OMEP-218; +OMEP1CAP73 PO; +POLY17PO18 PO
== END 2020-08-03 | disposition home or self-care (01) ==
LOC: M PT 13:59
PROVIDERS: ATTEND Family Medicine
DX: J44.9 Chronic obstructive pulmonary disease, unspecified (principal); E66.9 Obesity, unspecified

== ENCOUNTER 2020-08-14 14:16 | Outpatient (RCR) | payer MEDICAID, OTHER | END 2020-09-03 | LOC: M PT 14:16 | PROVIDERS: ATTEND Family Medicine | DX: J44.9 Chronic obstructive pulmonary disease, unspecified (principal); E66.9 Obesity, unspecified ==

== ENCOUNTER 2020-09-27 22:28 | Emergency (ER) | payer OTHER ==
[~2020-09-27] VITALS: Ht 170.2 cm; Wt 61.4 kg
[2020-09-27] MEDS ORDERED: D5W IV STA (22:51)
[2020-09-27] MEDS ORDERED: MAGNESIUM SULFATE IV STA (22:51)
[2020-09-27] MEDS ORDERED: IPRATROPIUM 0.5MG/ALBUTEROL 2.5MG INH SOL UD 3ML (DUONEB) NEB ONE (22:55)
[2020-09-27] MEDS ORDERED: methylPREDNISolone 125MG 2ML VIAL IV ONE (22:55)
[2020-09-27 23:16] LABS: BASO # 0.1 10^3/uL (0.0-0.2); BASO % 0.7 % (0.0-1.0); EOS # 0.4 10^3/uL (0.0-0.5); HEMATOCRIT 45.4 % (36.0-47.0); HEMOGLOBIN 14.6 g/dl (12.0-15.5); LYMPH # 2.9 10^3/uL (1.5-5.0); LYMPH % 24.8 % (24.0-44.0); MEAN CORPUSCULAR HEMOGLOBIN 28.4 pg (27.0-33.0); MEAN CORPUSCULAR HGB CONC 32.2 g/dl (32.0-36.5); MEAN CORPUSCULAR VOLUME 88.3 fl (80.0-96.0); MONO # 0.6 10^3/uL (0.0-0.8); MONO % 5.1 % (2.0-8.0); NEUTROPHILS # 7.5 10^3/uL (1.5-8.5); NEUTROPHILS % 65.4 % (36.0-66.0); PLATELET COUNT, AUTOMATED 302 10^3/uL (150-450); RED BLOOD COUNT 5.14 10^6/uL (4.00-5.40); WHITE BLOOD COUNT 11.5 10^3/uL (4.0-10.0)
[2020-09-27 23:32] LABS: ABG BASE EXCESS -1.4 (-2.0-2.0); ABG O2 SATURATION 97.1 % (95.0-99.0); ABG PARTIAL PRESSURE CO2 38.2 mmHg (35.0-45.0); ABG PARTIAL PRESSURE O2 88.4 mmHg (75.0-100.0); ABG STANDARD HCO3 23.3 MEQ/L (22.0-26.0); ABG TOTAL CO2 24.2 MEQ/L (23.0-31.0); ABG pH (ARTERIAL) 7.398 UNITS (7.350-7.450)
--- NOTE | 2020-09-27 23:45 | REPVR ---
PROCEDURE INFORMATION: Exam: XR Chest Exam date and time: 09/27/2020 10:42 PM Age: 64 years old Clinical indication: Cough; Additional info: Dyspnea/cough TECHNIQUE: Imaging protocol: XR of the chest. Views: 1 view. COMPARISON: CR PORTABLE CHEST X-RAY 06/19/2020 8:15 PM FINDINGS: Limitations: Left costophrenic angle is partially cut off the film. Examination is limited somewhat by the portable technique. Lungs: Unremarkable. No consolidation. Pleural spaces: Unremarkable. No pleural effusion. No pneumothorax. Heart/Mediastinum: Unremarkable. No cardiomegaly. Bones/joints: Unremarkable. IMPRESSION: No acute infiltrate. Electronically signed by: Daphney Horvath On 09/27/2020 23:44:44 PM
[2020-09-28 00:05] LABS: ALBUMIN 3.6 GM/DL (3.2-5.2); ALT/SGPT 46 U/L (12-78); BILIRUBIN,DIRECT < 0.1 MG/DL (0.0-0.2); BILIRUBIN,TOTAL 0.3 MG/DL (0.2-1.0); BLOOD UREA NITROGEN 15 MG/DL (7-18); CARBON DIOXIDE LEVEL 25 MEQ/L (21-32); CHLORIDE LEVEL 109 MEQ/L (98-107); CREATININE FOR GFR 1.04 MG/DL (0.55-1.30); GLUCOSE, FASTING 146 MG/DL (70-100); MAGNESIUM LEVEL 2.4 MG/DL (1.8-2.4); POTASSIUM SERUM 4.3 MEQ/L (3.5-5.1); SODIUM LEVEL 141 MEQ/L (136-145); TOTAL PROTEIN 7.2 GM/DL (6.4-8.2)
[2020-09-28] MEDS ORDERED: PRED20TA PO (00:32)
[2020-09-28] MEDS ORDERED: IPRATROPIUM 0.5MG/ALBUTEROL 2.5MG INH SOL UD 3ML (DUONEB) NEB ONE (00:40)
[2020-09-28 01:12] VITALS: BP 159/92
--- NOTE | 2020-09-28 11:50 | ECGEPIP ---
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
== END 2020-09-28 01:27 | disposition home or self-care (01) ==
LOC: M ED 22:28
DX: J44.9 Chronic obstructive pulmonary disease, unspecified (principal); J98.01 Acute bronchospasm; I11.0 Hypertensive heart disease with heart failure; Z79.51 Long term (current) use of inhaled steroids; Z79.82 Long term (current) 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; Z79.899 Other long term (current) drug therapy; Z88.0 Allergy status to penicillin; Z88.6 Allergy status to analgesic agent; Z88.1 Allergy status to other antibiotic agents; Z88.2 Allergy status to sulfonamides; Z88.8 Allergy status to other drugs, medicaments and biological substances
CPT/HCPCS: 36600; 71045; 80048; 80076; 82803; 83735; 84484; 85025; 93005; 93041; 94640; 96365; 96375; 99284; J2930; J3475

== ENCOUNTER 2020-10-20 10:20 | Inpatient (IN) | payer OTHER ==
[~2020-10-20] VITALS: Ht 170.2 cm; Wt 106.1 kg
[2020-10-20] MEDS ORDERED: IPRATROPIUM 0.5MG/ALBUTEROL 2.5MG INH SOL UD 3ML (DUONEB) NEB ONE (10:45)
[2020-10-20] MEDS ORDERED: NS 1,000 ML IV SCH (10:45)
[2020-10-20] MEDS ORDERED: ALBUTEROL SULFATE 2.5 MG/0.5 ML INH NEB SOLN INH ONE (10:45)
[2020-10-20] MEDS ORDERED: ONDANSETRON 4MG/2ML VIAL IV ONE ×2 (10:45→13:05)
[2020-10-20] MEDS ORDERED: MORPHINE 4 MG/ML 1ML VIAL/SYRINGE (J2270) IV ONE (10:45)
[2020-10-20 10:54] LABS: BASO # 0.1 10^3/uL (0.0-0.2); BASO % 0.4 % (0.0-1.0); EOS # 0.2 10^3/uL (0.0-0.5); HEMATOCRIT 50.3 % (36.0-47.0); HEMOGLOBIN 15.9 g/dl (12.0-15.5); LYMPH # 3.3 10^3/uL (1.5-5.0); LYMPH % 16.2 % (24.0-44.0); MEAN CORPUSCULAR HEMOGLOBIN 28.6 pg (27.0-33.0); MEAN CORPUSCULAR HGB CONC 31.6 g/dl (32.0-36.5); MEAN CORPUSCULAR VOLUME 90.6 fl (80.0-96.0); NEUTROPHILS # 15.5 10^3/uL (1.5-8.5); NEUTROPHILS % 76.4 % (36.0-66.0); PLATELET COUNT, AUTOMATED 313 10^3/uL (150-450); RED BLOOD COUNT 5.55 10^6/uL (4.00-5.40); WHITE BLOOD COUNT 20.3 10^3/uL (4.0-10.0)
[2020-10-20] MEDS ORDERED: ISOVUE-370 76% 100ML VIAL As Ordered ONE (11:01)
[2020-10-20 11:40] LABS: ALBUMIN 3.9 GM/DL (3.2-5.2); ALT/SGPT 44 U/L (12-78); AMYLASE 26 U/L (25-115); BILIRUBIN,DIRECT 0.1 MG/DL (0.0-0.2); BILIRUBIN,TOTAL 0.8 MG/DL (0.2-1.0); CK-MB VALUE MASS < 1.0 NG/ML (<3.6); CPK CREATINE PHOSPHOKINASE 60 U/L (26-192); LIPASE 76 U/L (73-393); MB/CK RELATIVE INDEX 1.67 (< OR =4); TOTAL PROTEIN 7.2 GM/DL (6.4-8.2); TROPONIN I < 0.02 NG/ML (< 0.10)
--- NOTE | 2020-10-20 11:54 | REP ---
INDICATION: abdl pain hx bowel obbstr. COMPARISON: 06/19/2020 TECHNIQUE: Standard helical technique after the intravenous administration of 100 cc Isovue 370 sec FINDINGS: Stable chronic changes are again seen in the lung bases. The liver and spleen are again seen to be within normal limits. The pancreas, kidneys, and adrenal glands are unchanged. There is no free fluid or free air. There is no significant change in the appearance of the abdominal aorta or para-regions. Once again, the colon is for the most part fluid-filled and mildly distended. Once again, there is an abrupt transition in the sigmoid colon where distal to this transition the sigmoid colon has a normal caliber. The appearance of this transition is essentially unchanged. There is sigmoid colon diverticulosis. There is no change in the appearance of the adipose containing ventral hernia. There is no significant change in appearance of the imaged osseous structures. IMPRESSION: Persistent transition in the sigmoid colon as described above and proximal to which there is a predominantly fluid-filled mildly dilated colon. There is no definite Sallie sigmoidal fatty infiltration. The finding could be secondary to either a persistent sigmoid colon narrowing due to scar/fibrosis from chronic inflammatory change or neoplastic change which cannot be ruled out by this exam. I have not been given history of recent colonoscopy. Follow-up with colonoscopy should be obtained if clinically relevant. Other findings as described above. <Electronically signed by Aldair Freitas > 10/20/20 [id number]
[2020-10-20] MEDS ORDERED: NS 500 ML IV ONE (12:30)
[2020-10-20] MEDS ORDERED: MEROPENEM INJ 1 GM in IV 1 EA IV ONE (12:35)
--- NOTE | 2020-10-20 13:02 | REP ---
INDICATION: abdl pain. COMPARISON: 09/27/2020 also portable TECHNIQUE: Portable FINDINGS: The technique utilized in obtaining the radiograph has magnified the cardiac silhouette and attenuated the interstitial markings. There are mild bibasilar opacities status quo. There are no new abnormal opacities. The cardiomediastinal silhouette is unchanged. The pleural angles remain sharp. There is no change in the osseous structures. IMPRESSION: Stable appearing chronic changes. <Electronically signed by Aldair Freitas > 10/20/20 [id number]
[2020-10-20 13:10] LABS: INR 0.87
[2020-10-20] MEDS: MORPHINE 2 MG/ML 1ML VIAL (J2270) IV PRN ×4 (13:14→21:16)
--- NOTE | 2020-10-20 13:36 | ECGEPIP ---
[facility] - ED Test Date: 2020-10-20 Pat Name: ELIZABETH BRENNAN Department: Room: - Gender: Female Head Of Biology: : 1955 Requested By: Ivy Ceja Order Number: [id number] Reading MD: Mary Ann Shelton Measurements Intervals [place] Rate: 102 P: 91 [place]: 150 QRS: 51 QRSD: 68 T: 90 QT: 338 QTc: 440 Interpretive Statements Sinus tachycardia Nonspecific ST and T wave abnormality similar 09/27/20 Electronically Signed on 10-20-2020 13:36:08 EDT by Mary Ann Shelton
[2020-10-20] MEDS ORDERED: FURO40TA2 PO (13:55)
[2020-10-20] MEDS ORDERED: MIRA3350 PO (13:55)
[2020-10-20] MEDS ORDERED: PRED20TA PO (13:55)
[2020-10-20] MEDS ORDERED: SPIR1CAP PO (13:55)
[2020-10-20] MEDS ORDERED: IPRATROPIUM 0.5MG/ALBUTEROL 2.5MG INH SOL UD 3ML (DUONEB) NEB PRN (14:00)
--- NOTE | 2020-10-20 14:40 | HPE ---
HISTORY AND PHYSICAL DATE OF ADMISSION: 10/20/2020 PRINCIPAL DIAGNOSIS: Large bowel obstruction from sigmoid obstruction. HISTORY OF PRESENT ILLNESS: Rossana Schilling has been having trouble passing stool for about a week, increasing abdominal distention, and pain. She came to the emergency room where a CT scan of the abdomen and pelvis showed fluid-filled mildly dilated colon proximal to a persistent area of narrowing in the sigmoid. There is no definite perisigmoidal fatty infiltration. Finds felt secondary to stricture from chronic inflammation versus a neoplasm. She is being admitted for further evaluation. PAST MEDICAL HISTORY: 1. Severe COPD. She is on chronic supplemental oxygen at 2 liters nasal cannula and then uses BiPAP at night. Her claims adjustor is Dr. Huddleston in [place]. 2. She has what is described as congestive heart failure with preserved ejection fraction, more likely Cor pulmonale with right-sided heart failure. 3. Moderate pulmonary hypertension on echocardiogram. 4. Morbidly obese. 5. Hypertensive heart disease. 6. Type 2 diabetes. 7. GERD. 8. Hiatal hernia. 9. Recurrent diverticulitis with abscess. PAST SURGICAL HISTORY: 1. Appendectomy. 2. Cholecystectomy. 3. Hysterectomy. SOCIAL HISTORY: Social alcohol use. Still smokes. Denies any street drugs. FAMILY HISTORY: Non-contributory. HOME MEDICATIONS: 1. Albuterol via nebulizer. 2. Aspirin 81 mg daily. 3. Symbicort 160/4.5 two puffs b.i.d. 4. Flonase nasal spray. 5. Furosemide 40 mg daily. 6. Mucinex 600 mg b.i.d. 7. Nicotine 21 mg per day patch. 8. Omeprazole 20 mg daily. 9. MiraLAX 17 grams every two days as needed. 10. Prednisone 20 mg daily. 11. Spiriva 18 mcg inhalation daily. 12. Tramadol 50 mg q. 6 hours p.r.n. ALLERGIES: MACROLIDE ANTIBIOTICS, PENICILLINS, QUINOLONES, SULFA, TETRACYCLINES, ARIPIPRAZOLE, METRONIDAZOLE, VENLAFAXINE. REVIEW OF SYSTEMS: No rectal bleeding, fever, chills, night sweats, change in her chronic shortness of breath, orthopnea, or change in chronic lower extremity edema. PHYSICAL EXAMINATION: VITAL SIGNS: Blood pressure 166/78, pulse rate 100, respiratory rate 24, 93% O2 saturation on 3 liters. GENERAL: Ill appearance, cushingoid. Lying in bed in no distress. HEENT: Pupils equal, round, and reactive to light. NECK: No masses. LUNGS: Decreased breath sounds, but clear. HEART: Regular rate and rhythm without murmur. ABDOMEN: Obese. She is distended. There are bowel sounds present. She is mildly tender in the left lower quadrant. No guarding, rebound, or referred pain. EXTREMITIES: No clubbing or cyanosis. 1+ peripheral edema. Normal strength in the arms and legs. DIAGNOSTIC STUDIES: CT of the abdomen and pelvis as summarized above. Chest x-ray shows chronic stable changes. LABORATORY DATA: White count 28.3 (on steroids), hemoglobin 59, hematocrit 13.9, platelets 313,000. Lactic acid 2.3. Troponin is low. Sodium 138, potassium 5.2, BUN 26, creatinine 1.0. Urinalysis shows 2+ leukocytes and 1+ bacteria. Urine culture is pending. Blood cultures pending. COVID screen negative. IMPRESSION: 1. Partial bowel obstruction from stricture versus mass. Patient will be admitted to medical [facility] hospitalist service with surgery consult. Dr. Mata has already discussed the case with Dr. Hernandez. It looks like the last colonoscopy was on 04/05/2017. 2. Chronic obstructive pulmonary disease (COPD) with suspected Cor pulmonale, chronic mild CO2 retention (baseline pCO2 of 44 to 46). Continue supplemental oxygen, nebulized bronchodilators, and she is chronic steroids. Should she require surgery, stress dose with a mineral corticoid such as dexamethasone or hydrocortisone is advised. 3. Diabetes. Sliding scale insulin coverage recommended. 4. Tobacco abuse. The importance of smoking cessation was discussed. 5. History of congestive heart failure with preserved ejection fraction (more likely Cor pulmonale with right-sided heart failure). She has received some intravenous (IV) fluid for the elevated lactate. We will use judicious amounts in the face of the unclear cardiac history. She did have an echocardiogram that I found from 05/27/2018, that showed at least moderate pulmonary hypertension, normal left ventricle, and normal ejection fraction. [facility]X HOSPITALRasheed
[2020-10-20] MEDS: IPRATROPIUM 0.5MG/ALBUTEROL 2.5MG INH SOL UD 3ML (DUONEB) NEB SCH ×2 (15:04→19:23)
[2020-10-20] MEDS: NS 0.45% 1,000 ML IV SCH ×2 (15:31→23:27)
[2020-10-20 15:42] VITALS: BP 172/100
[2020-10-20] MEDS: ONDANSETRON 4MG/2ML VIAL IV PRN ×2 (16:48→21:16)
[2020-10-20 18:00] VITALS: BP 138/90
[2020-10-20] MEDS: SYMBICORT 160/4.5MCG INHALER 6GM INH SCH (19:23)
[2020-10-20] MEDS ORDERED: FLEET ENEMA PR ONE (19:30)
[2020-10-20 22:00] VITALS: BP 140/91
[2020-10-20] MEDS ORDERED: GLUCAGON INJ 1MG VIAL SC PRN (23:55)
[2020-10-20] MEDS ORDERED: GLUCOSE 4GM CHEW TABLET PO PRN (23:55)
[2020-10-20] MEDS ORDERED: DEXTROSE 50% 50 ML SYRINGE IV PRN (23:55)
[2020-10-21] MEDS ORDERED: HumaLOG INSULIN (NovoLOG) PER UNIT SC ONE (01:20)
[2020-10-21] MEDS: HumaLOG INSULIN (NovoLOG) PER UNIT SC SCH ×4 (01:22→17:22)
[2020-10-21] MEDS: ONDANSETRON 4MG/2ML VIAL IV PRN ×4 (01:34→20:07)
[2020-10-21] MEDS: MORPHINE 2 MG/ML 1ML VIAL (J2270) IV PRN ×7 (01:35→20:08)
[2020-10-21 02:00] VITALS: BP 141/90
[2020-10-21] MEDS: IPRATROPIUM 0.5MG/ALBUTEROL 2.5MG INH SOL UD 3ML (DUONEB) NEB SCH ×4 (02:34→19:39)
--- NOTE | 2020-10-21 02:42 | REPVR ---
PROCEDURE INFORMATION: Exam: XR Chest Exam date and time: 10/21/2020 1:36 AM Age: 64 years old Clinical indication: Device placement; Ng tube; Additional info: Ng tube placement TECHNIQUE: Imaging protocol: XR of the chest. Views: 1 view. COMPARISON: [place] Chest, 1 view 10/20/2020 12:54 PM FINDINGS: Tubes, catheters and devices: Nasogastric tube extends into the stomach. The side hole appears to be in the distal esophagus. Lungs: Mild dependent atelectasis. No consolidation. Pleural spaces: No pleural effusion. No pneumothorax. Heart/Mediastinum: Mild cardiomegaly. Bones/joints: Unremarkable. IMPRESSION: Nasogastric tube extends into the stomach. The side hole appears to be in the distal esophagus. Electronically signed by: Marcelino Oates On 10/21/2020 02:41:47 AM
--- NOTE | 2020-10-21 03:37 | CR.PDOC ---
General Surgery Consultation Date of Consultation 10/20/20 History and Physical CONSULT REPORT FOR: hospitalist service REASON FOR CONSULTATION: large bowel obstruction HISTORY OF PRESENT ILLNESS: I was asked to consult on Ms. Schilling. I actually met her during her prior admission in June for similar symptoms which she resolved nonoperatively. Please refer to my consultation note and progress notes at that admission. She has had prior bouts of diverticulitis including a perforated diverticulitis with abscess that needed. Things drainage back in 2019. She has just narrow strictured area in her sigmoid colon that is about 10 cm in length seen on the barium enema during her last admission. Last colonoscopy was by Dr. Wolfe in 2017 demonstrating diverticulosis at that area. She denies any unexplained weight loss. Since being discharged she has been maintaining spontaneous bowel movements reduce of MiraLAX daily. She reports she moves her bowels once a day which are soft and semi-formed. This episode has been ongoing for about a week. She reports no prior bowel movements for about a week despite MiraLAX though she did have a small pencil thin stool this morning. She reports not noticing she is passing flatus. She has increasing abdominal distention likewise nausea prompting her emergency room presentation and she was worked up and subsequently admitted for large bowel obstruction. She reports she was seen by Dr. moran in our clinic following the prior admission. She was deemed not an operative candidate and she tells me that he would like to optimize her breathing first and would consider first doing a colonoscopy to rule out possible malignancy at that area of stricture. PAST MEDICAL HISTORY: 1. Advance COPD, uses bipap with 2-4L O2 at night 2. Obstructive sleep apnea 3. Congestive heart failure with preserved ejection fraction 4. Moderate pulmonary hypertension 5. Hypertension 6. Morbid obesity with a BMI of 43 7. Nqr-kqntvbk-gzpjokviv diabetes 8. Gastroesophageal reflux disease 9 hiatal hernia 10. Multiple episodes of diverticulitis. . PAST SURGICAL HISTORY: INCLUDES: 1. Appendectomy 2. Cholecystectomy 3. Hysterectomy ALLERGIES: Please see below. FAMILY HISTORY: . HOME MEDICATIONS: Please see below. REVIEW OF SYSTEMS: GENERAL: [Denies chills, reports weight gain, reports feeling febrile yesterday]. HEENT: [Denies blurred vision and double vision. Denies ear symptoms. Denies hoarseness]. NECK: Denies any neck pain]. CARDIOVASCULAR: [Denies chest pain and palpitations]. MUSCULOSKELETAL: [Denies arthralgias, back pain and thrombophlebitis]. SKIN: [Denies rash]. NEUROLOGIC: [Denies headache, stroke and transient ischemic attack]. PSYCHIATRIC: [Denies anxiety and depression]. ENDOCRINE: [Denies thyroid disease]. HEMATOLOGY/ONCOLOGY: [Denies bleeding or clotting disorder]. HEART: [Denies any chest pains, palpitations, paroxysmal dyspnea, orthopnea]. PULMONARY: [Denies chronic cough, dyspnea and wheezing]. GASTROINTESTINAL: [Denies rectal bleeding, family history of colon cancer, constipation, diarrhea, dysphagia, heartburn and jaundice]. GENITOURINARY: [Denies dysuria, frequency, hematuria and nocturia]. ENDOCRINE: [Denies polydipsia, polyphagia, polyuria, heat or cold intolerance]. INFECTIOUS: [Denies any recent upper respiratory tract infection, UTI, need for use of antibiotics]. NUTRITION: [Reports good appetite]. PHYSICAL EXAMINATION: VITALS SIGNS: Please see below. GENERAL APPEARANCE: Patient appears relatively comfortable. She is pleasant and cooperative. She is wearing a nasal cannula. Speech is unable with pursed lips one talking. SKIN: Warm and dry. HEENT: Wears nasal cannula, pursed lips. NECK: Short, supple. LUNGS: Clear breath sounds, somewhat distant, no wheezing. HEART: Regular heart rate and rhythm. ABDOMEN: Abdomen is markedly obese and protuberant rounded abdomen most prominent on the epigastric area where she has this pronounced distention. Whole abdomen is tympanitic to percussion, hypoactive bowel sounds. Prior laparoscopic port sites from cholecystectomy and appendectomy are noted. There is no port site incisions no umbilical or groin hernia. She is nontender on palpation throughout the whole off the abdomen. EXTREMITIES: Mild bilateral lower extremity edema ANCILLARIES: . LABORATORY DATA: Please see below. WBC 20,000 IMAGING STUDIES: I reviewed her imaging studies including CT scan of the abdomen and pelvis done during the last admission on June 2020 and likewise the barium enema today ordered during the same admission. This shows a strictured area in her sigmoid colon roughly about [address] length[address] Her [address] scan abdomen and pelvis that was done today was also reviewed. This shows a distended and fluid-filled colon up to the area of the sigmoid colon stricture. There is no free air nor perforation or abscess the small bowel does not look distended likewise the stomach does not look distended. IMPRESSION AND PLAN: Large bowel obstruction secondary to stricture at the sigmoid colon probably secondary to chronic diverticulitis versus malignancy She had a prior presentation back in June. That resolved with nonoperative therapy after placement of nasogastric tube. Initial workup at that time shows a 10 cm area of stricture at the sigmoid colon. He has a significant pulmonary comorbidity including O2 dependent COPD, uses BiPAP in the evening. I told her that she is extremely high risk for general anesthesia for surgeries of if her symptoms do not resolve she will need at least a diverting colostomy. If she can be optimized and she may get a chance to have further workup of the stricture including colonoscopy with resection of the involved area and reversal of the prior colostomy. If we can decompress her and some I'll optimize her then we can consider a single stage surgery with resection and anastomosis. her cat scan she does not seem to have distention of her small bowel and stomach which points to possibly competent ileocecal valve which may pose as a higher risk for perforation. I told her that we may need to intervene surgically if she does not immediately resolve her symptoms. I will try her on fleets enema at least to see if we could decompress her from the bottom. Vital Signs Vital Signs Date Time Temp Pulse Resp B/P (MAP) Pulse Ox O2 Delivery O2 Flow Rate FiO2 10/21/20 01:45 18 Nasal Cannula 4.0 10/20/20 22:00 97.3 101 140/91 (107) 92 I&Os I&O- Last 24 Hours up to 6 AM0 10/21/20 06:00 Intake Total 850 ml Balance 850 ml Laboratory Data Labs 24H Laboratory Tests 2 10/20/20 10:38: Lactic Acid Level 2.3*H 10/20/20 10:39: Immature Granulocyte % (Auto) 1.0, Neutrophils (%) (Auto) 76.4H, Lymphocytes (%) (Auto) 16.2L, Monocytes (%) (Auto) 5.0, Eosinophils (%) (Auto) 1.0, Basophils (%) (Auto) 0.4, Neutrophils # (Auto) 15.5H, Lymphocytes # (Auto) 3.3, Monocytes # (Auto) 1.0H, Eosinophils # (Auto) 0.2, Basophils # (Auto) 0.1, Nucleated Red Blood Cells % (auto) 0.0, Total Bilirubin 0.8, Direct Bilirubin 0.1, Aspartate Amino Transf (AST/SGOT) 24, Alanine Aminotransferase (ALT/SGPT) 44, Alkaline Phosphatase 107, Total Creatine Kinase 60, Creatine Kinase MB < 1.0, Creatine K inase MB Relative Index 1.67, Troponin I < 0.02, Total Protein 7.2, Albumin 3.9, Albumin/Globulin Ratio 1.2, Amylase Level 26, Lipase 76 10/20/20 10:44: POC Glucose (Misc Panel) 218H, POC Sodium (Misc Panel) 138, POC Potassium (Misc Panel) 5.2H, POC Chloride (Misc Panel) 103, POC Total CO2 (Misc Panel) 31.0H, POC Blood Urea Nitrogen (Misc Panel 26, POC Ionized Calcium (Misc Panel) 4.3L, POC Creatinine (Misc Panel) 1.0, POC Hematocrit (Misc Panel) 50.0 10/20/20 12:26: Urine Color YELLOW, Urine Appearance CLOUDYH, Urine pH 5.0, Urine Specific [place] 1.049, Urine Protein 1+H, Urine Glucose (UA) NEGATIVE, Urine Ketones NEGATIVE, Urine Blood NEGATIVE, Urine Nitrite POSITIVEH, Urine Bilirubin NEGATIVE, Urine Urobilinogen 0.2, Urine Leukocyte Esterase 2+H, Urine WBC (Auto) 10H, Urine RBC (Auto) 6H, Urine Hyaline Casts (Auto) 0, Urine Bacteria (Auto) 1+ H, Urine Squamous Epithelial Cells 9, Urine Mucus (Auto) SMALL, Urine Sperm (Auto) 10/20/20 12:49: Prothrombin Time 12.0, Prothromb Time International Ratio 0.87, Activated Parti al Thromboplast Time 20.0L 10/20/20 16:50: Lactic Acid Followup at 4 Hours 1.3 10/21/20 00:10: Bedside Glucose (Misc Panel) 202H CBC/BMP Laboratory Tests 10/20/20 10:39 Microbiology Microbiology 10/20/20 Urine Culture, Received Pending 10/20/20 Blood Culture, Received Pending 10/20/20 Respiratory Virus Panel (PCR) (JOHNNY) - Final, Complete 10/20/20 Blood Culture, Received Pending Home Medications Scheduled Aspirin (Aspirin EC) 81 Mg Tabec, 81 MG PO DAILY, (Reported) Budesonide/Formoterol (Symbicort 160-4.5 Mcg Inhaler) 6 Gm Hfa.aer.ad, 2 PUFF INH BID, (Reported) Furosemide (Furosemide) 40 Mg Tab, 40 MG PO DAILY, (Reported) Guaifenesin (Mucinex) 600 Mg Tab.er.12h, 600 MG PO BID, (Reported) Nicotine (Nicotine Patch) 21 Mg Patch.td24, 1 PATCH TOP DAILY, (Reported) APPLIES TO ARMS OR CHEST Omeprazole (Omeprazole) 20 Mg Capsule.dr, 20 MG PO DAILY, (Reported) Polyethylene Glycol 3350 (Miralax) 119 Gm Powder, 17 GM PO Q2D, (Reported) HS Prednisone (Prednisone) 20 Mg Tablet, 20 MG PO DAILY, (Reported) TAPER DOSE STARTED 10/10/20 - 20MG BID FOR 5 DAYS, 20MG DAILY FOR 5 DAYS, 5MG DAILY FOR 6 DAYS, 5MG EVERY OTHER DAY FOR 5 DAYS Tiotropium [place] (Spiriva) 18 Mcg Cap.w.dev, 18 MCG PO DAILY, (Reported) Scheduled PRN Albuterol Sulf (Albuterol Sulfate) 2.5 Mg/3 Ml Nebu, 2.5 MG INH Q4H PRN for SHORTNESS OF BREATH, (Reported) Albuterol Sulfate (Proair Hfa) 8.5 Gm Hfa.aer.ad, 2 PUFF INH Q4H PRN for SHORTNESS OF BREATH, (Reported) Fluticasone Propionate (Flonase Allergy Relief) 9.9 Ml [place].susp, 2 SPRAYS NA DAILY PRN for ALLERGIES, (Reported) Furosemide (Furosemide) 40 Mg Tablet, 40 MG PO QPM PRN for URINARY RETENTION, (Reported) Tramadol HCl (Tramadol HCl) 50 Mg Tablet, 50 MG PO Q6H PRN for PAIN, (Reported) Allergies Coded Allergies: Penicillins (Verified Allergy, Intermediate, HIVES, 05/08/19) pt has had cefdinir in the past Quinolones (Verified Allergy, Intermediate, RASH, 05/08/19) metronidazole (Verified Allergy, Mild, itching, 05/08/19) Sulfa (Sulfonamide Antibiotics) (Verified Adverse Reaction, Intermediate, VOMITING, BLISTERS, TACHYCARDIA, 05/08/19) Tetracyclines (Verified Adverse Reaction, Intermediate, TACHYCARDIA, BLISTERS, HIVES, 05/08/19) aripiprazole (Verified Adverse Reaction, Intermediate, TACHYCARDIA, 05/08/19) venlafaxine (Verified Adverse Reaction, Mild, INCREASED HR, 05/08/19) Macrolide Antibiotics (Verified Adverse Reaction, Unknown, ITCHY, HIVES, 05/08/19) HAS TAKEN AZITHROMYCIN W/O PROBLEM KELLI STOLL MD October 21, 2020 03:37
[2020-10-21 06:00] VITALS: BP 145/79
[2020-10-21 06:43] LABS: HEMATOCRIT 45.7 % (36.0-47.0); HEMOGLOBIN 14.2 g/dl (12.0-15.5); MEAN CORPUSCULAR HEMOGLOBIN 28.3 pg (27.0-33.0); MEAN CORPUSCULAR HGB CONC 31.1 g/dl (32.0-36.5); MEAN CORPUSCULAR VOLUME 91.2 fl (80.0-96.0); PLATELET COUNT, AUTOMATED 262 10^3/uL (150-450); RED BLOOD COUNT 5.01 10^6/uL (4.00-5.40); WHITE BLOOD COUNT 14.8 10^3/uL (4.0-10.0)
[2020-10-21 07:12] LABS: BLOOD UREA NITROGEN 14 MG/DL (7-18); CALCIUM LEVEL 9.1 MG/DL (8.8-10.2); CARBON DIOXIDE LEVEL 30 MEQ/L (21-32); CHLORIDE LEVEL 105 MEQ/L (98-107); CREATININE FOR GFR 0.84 MG/DL (0.55-1.30); GLOMERULAR FILTRATION RATE > 60.0 (>45); GLUCOSE, FASTING 187 MG/DL (70-100); POTASSIUM SERUM 3.9 MEQ/L (3.5-5.1); SODIUM LEVEL 141 MEQ/L (136-145)
[2020-10-21] MEDS: SYMBICORT 160/4.5MCG INHALER 6GM INH SCH ×2 (07:41→19:39)
[2020-10-21] MEDS: NS 0.45% 1,000 ML IV SCH ×2 (08:33→16:23)
[2020-10-21] MEDS: MIRALAX *UNIT DOSE* 17GM PACKET PO SCH ×2 (08:34→20:07)
[2020-10-21] MEDS: PANTOPRAZOLE 40MG VIAL (C9113 PER 1) IV SCH (08:34)
[2020-10-21] MEDS ORDERED: ENOXAPARIN 40MG/0.4ML SYRINGE (J1650 PER 10MG) SC SCH (09:00)
[2020-10-21] MEDS ORDERED: predniSONE 20 MG TAB PO SCH (09:00)
[2020-10-21 14:00] VITALS: BP 182/86
--- NOTE | 2020-10-21 14:52 | IPNPDOC ---
Subjective Date Seen The patient was seen on 10/21/20. Subjective Chief Complaint/HPI continues to have abd pain no flatus or BM Abd remains distended Objective Physical Examination General Exam: Positive: Moderate Distress Eye Exam: Positive: PERRLA, Conjunctiva & lids normal, EOMI ENT Exam: Positive: Mucous membr. moist/pink Neck Exam: Positive: Supple; Negative: JVD, thyromegaly Chest Exam: Positive: Clear to auscultation, Normal air movement Heart Exam: Positive: Rate Normal, Regular Rhythm, Normal S1, Normal S2; Negative: Murmurs, Rubs Abdomen Exam: Positive: BS Hypoactive, Tenderness, Other (distended with ) Skin Exam: Positive: Nl turgor and temperature Psych Exam: Positive: Mental status NL Assessment /Plan Assessment # Large bowel obstruction - OR in am d/w - change morphine 2 mg q2 prn # Chronic obstructive pulmonary disease (COPD) with suspected Cor pulmonale, # Chronic tobacco use - pulmonary status is stable, she's high-risk for bowel surgery and understands this # Diabetes type 2 - Sliding scale insulin coverage recommended. # Chronic diastolic CHF - stable Plan/VTE VTE Prophylaxis Ordered?: Yes VS, I&O, 24H, Fishbone Vital Signs/I&O Vital Signs Date Time Temp Pulse Resp B/P (MAP) Pulse Ox O2 Delivery O2 Flow Rate FiO2 10/21/20 14:00 96.7 98 20 182/86 (118) 95 Nasal Cannula 4.0 I&O- Last 24 Hours up to 6 AM 10/21/20 06:00 Intake Total 2663 ml Balance 2663 ml Laboratory Data 24H LABS Laboratory Tests 2 10/20/20 16:50: Lactic Acid Followup at 4 Hours 1.3 10/21/20 00:10: Bedside Glucose (Misc Panel) 202H 10/21/20 05:08: Bedside Glucose (Misc Panel) 197H 10/21/20 06:23: Nucleated Red Blood Cells % (auto) 0.0, Anion Gap 6L, Glomerular Filtration Rate > 60.0, Calcium Level 9.1 10/21/20 11:26: Bedside Glucose (Misc Panel) 226H CBC/BMP Laboratory Tests 10/21/20 06:23 Microbiology Microbiology 10/20/20 Urine Culture, Received Pending 10/20/20 Blood Culture - Preliminary, Resulted No growth after 24 hours . All specim... 10/20/20 Respiratory Virus Panel (PCR) (JOHNNY) - Final, Complete 10/20/20 Blood Culture - Preliminary, Resulted No growth after 24 hours . All specim... SAROJ NAZARIO MD October 21, 2020 14:52
[2020-10-21 20:30] VITALS: BP 148/94
[2020-10-21] MEDS ORDERED: MORPHINE 2 MG/ML 1ML VIAL (J2270) IV ONE (21:15)
[2020-10-21 21:22] LABS: VENOUS BASE EXCESS -1.8 (-2.0-2.0); VENOUS HCO3 23.9 MEQ/L (23.0-27.0); VENOUS O2 SATURATION 96.3 % (60.0-80.0); VENOUS PARTIAL PRESSURE CO2 44.1 mmHg (38.0-50.0); VENOUS PARTIAL PRESSURE O2 85.7 mmHg (30.0-50.0); VENOUS PH 7.352 UNITS (7.330-7.430); VENOUS STANDARD HCO3 22.9 MEQ/L; VENOUS TOTAL CO2 25.3 MEQ/L (24.0-28.0)
--- NOTE | 2020-10-21 21:25 | IPNPDOC ---
Text Note Date of Service The patient was seen on 10/21/20. NOTE time of service 910pm Pt's RN was concerned bc the pt was c/o of severe abdominal pain that was no longer controlled w the previous dose of morphine and her O2 sats dropped to 87- 88%; despite the enema the patient produced very little stool At the time of my eval the pt reported that her pain had improved (she had just received morphine), her abd distention was a bit better than it was earlier on in the day. #SBO Plan: increase dose of morphine from 2mg IV Q2H to 3mg IV Q2H / check lactic acid / ask RN to repeat tap water enema / if abdominal pain is worse or lactic a yaya is elevated will check CT abd/pelvis w contrast to r/o perf #Hypoxemia She has JIGNESH Her abdomen may also be causing a mass effect on the chest and making it difficult for her to insipire deeply Pt denies feeling like her COPD is acting up Plan: per d/w (surgeon administration vice president) will dc BIPAP (if she develops a perf will PAP will make it worse) / check VBG / switch to Vapotherm (will provi de some PEEP) VS,Fishbone, I+O VS, Fishbone, I+O Laboratory Tests 10/21/20 06:23 Vital Signs Date Time Temp Pulse Resp B/P (MAP) Pulse Ox O2 Delivery O2 Flow Rate FiO2 10/21/20 20:08 18 Nasal Cannula 4.0 10/21/20 14:00 96.7 98 182/86 (118) 95 I&O- Last 24 Hours up to 6 AM 10/21/20 06:00 Intake Total 2663 ml Balance 2663 ml MARILYN CARO MD October 21, 2020 21:25
[2020-10-21 22:00] VITALS: BP 148/94
[2020-10-21] MEDS: MORPHINE 4 MG/ML 1ML VIAL/SYRINGE (J2270) IV PRN (22:53)
[2020-10-22] VITALS (62 sets, daily range): BP systolic 82–130; BP diastolic 49–75
[2020-10-22] MEDS: HumaLOG INSULIN (NovoLOG) PER UNIT SC SCH ×5 (00:09→21:08)
[2020-10-22] MEDS: NS 0.45% 1,000 ML IV SCH ×3 (00:10→20:54)
--- NOTE | 2020-10-22 00:10 | REPVR ---
PROCEDURE INFORMATION: Exam: CT Abdomen And Pelvis Without Contrast Exam date and time: 10/21/2020 10:40 PM Age: 64 years old Clinical indication: Abdominal pain; Generalized; Additional info: Worsening abdominal pain w elevated lactic R/O perforation TECHNIQUE: Imaging protocol: Computed tomography of the abdomen and pelvis without contrast. Radiation optimization: All CT scans at this facility use at least one of these dose optimization techniques: automated exposure control; mA and/or kV adjustment per patient size (includes targeted exams where dose is matched to clinical indication); or iterative reconstruction. COMPARISON: CT ABD/PEL W/IV CONTRAST ONLY 10/20/2020 11:25 AM FINDINGS: Tubes, catheters and devices: There is a nasogastric tube in the stomach. Lungs: Worsening fibrosis and atelectasis in the right lung base. Liver: The liver is low attenuation indicating hepatic steatosis. Gallbladder and bile ducts: Normal. No calcified stones. No ductal dilation. Pancreas: Normal. No ductal dilation. Spleen: Normal. No splenomegaly. Adrenal glands: Normal. No mass. Kidneys and ureters: Normal. No hydronephrosis. Stomach and bowel: There is worsening distention of the colon with a large amount of fluid and air to the level of an abrupt transition point at the junction of the descending and sigmoid segments of the colon. The sigmoid colon and rectum are nondilated. Sigmoid diverticulosis is present. There is worsening fluid distention throughout the small bowel and stomach with small bowel loops measuring up to 4 cm. No pneumatosis is seen. Appendix: No evidence of appendicitis. Intraperitoneal space: No pneumoperitoneum or abscess. Vasculature: Unremarkable. No abdominal aortic aneurysm. Lymph nodes: Unremarkable. No enlarged lymph nodes. Urinary bladder: Unremarkable as visualized. Reproductive: Unremarkable as visualized. Bones/joints: Unremarkable. No acute fracture. Soft tissues: Unremarkable. IMPRESSION: 1. Distal colonic obstruction with stricture of the sigmoid colon. Worsening dilation of the colon and small bowel. No signs of ischemia or perforation. 2. Colonic diverticulosis. 3. Hepatic steatosis. Electronically signed by: Marcelino Oates On 10/22/2020 00:09:35 AM
[2020-10-22] MEDS: ONDANSETRON 4MG/2ML VIAL IV PRN (00:45)
[2020-10-22] MEDS: IPRATROPIUM 0.5MG/ALBUTEROL 2.5MG INH SOL UD 3ML (DUONEB) NEB SCH ×4 (01:20→19:22)
[2020-10-22] MEDS ORDERED: ONDANSETRON 4MG/2ML VIAL As Ordered ONE ×2 (01:25→03:55)
[2020-10-22] MEDS ORDERED: ROCURONIUM BROMIDE 50 MG/5 ML VIAL As Ordered ONE ×4 (01:25→05:37)
[2020-10-22] MEDS ORDERED: LIDOCAINE 2% 100MG/5ML SDV (FOR ANES.) As Ordered ONE (01:25)
[2020-10-22] MEDS ORDERED: dexameTHASONE 4 MG/ML 1ML VIAL (J1100 PER 1MG) As Ordered ONE (01:25)
[2020-10-22] MEDS ORDERED: propofoL 200 MG/20 ML VIAL As Ordered ONE (01:25)
[2020-10-22] MEDS ORDERED: fentaNYL 250 MCG/5 ML INJECTION (J3010) As Ordered ONE (01:26)
[2020-10-22] MEDS ORDERED: MIDAZOLAM INJ 2MG/2ML VIAL (J2250 PER 1MG) As Ordered ONE (01:26)
[2020-10-22] MEDS ORDERED: BUPIVACAINE LIPOSOME/PF 1.3% 20ML VIAL (13.3MG/ML)(EXPAREL)(C9290 PER1MG) As Ordered ONE (01:27)
[2020-10-22] MEDS ORDERED: GLUCAGON INJ 1MG VIAL As Ordered ONE (01:27)
[2020-10-22] MEDS ORDERED: BUPIVACAINE HCL 0.25% 10ML VIAL As Ordered ONE (01:27)
[2020-10-22] MEDS ORDERED: SUCCINYLCHOLINE 100 MG/5 ML SYRINGE (J0330) As Ordered ONE (01:41)
[2020-10-22] MEDS ORDERED: ERTAPENEM 1GM VIAL(INVanz) (J1335 PER 500MG) As Ordered ONE (02:45)
[2020-10-22] MEDS ORDERED: ACETAMINOPHEN 1000MG 100ML IV BTL (OFIRMEV) (J0131 PER 10MG) As Ordered ONE (03:55)
[2020-10-22] MEDS ORDERED: KETOROLAC 60MG 2ML VIAL As Ordered ONE (03:55)
[2020-10-22] MEDS ORDERED: HYDROmorphone HCL 2 MG/ML 1ML VIAL (J1170) As Ordered ONE (03:56)
[2020-10-22] MEDS ORDERED: MIDAZOLAM 5MG/ML 1ML VIAL (J2250 PER 1MG) As Ordered ONE (05:34)
[2020-10-22] MEDS ORDERED: LR 1,000 ML IV SCH ×2 (06:15→06:50)
[2020-10-22] MEDS ORDERED: PROPOFOL 1,000 MG/100 ML VIAL As Ordered ONE ×2 (06:15→14:13)
[2020-10-22] MEDS ORDERED: fentaNYL 100 MCG/2 ML INJECTION (J3010) As Ordered ONE (06:21)
[2020-10-22 06:46] LABS: ABG BASE EXCESS -9.4 (-2.0-2.0); ABG HCO3 19.9 MEQ/L (22.0-26.0); ABG O2 SATURATION 93.9 % (95.0-99.0); ABG PARTIAL PRESSURE CO2 56.5 mmHg (35.0-45.0); ABG PARTIAL PRESSURE O2 79.1 mmHg (75.0-100.0); ABG STANDARD HCO3 17.1 MEQ/L (22.0-26.0); ABG TOTAL CO2 21.6 MEQ/L (23.0-31.0)
[2020-10-22 06:50] LABS: ABG pH (ARTERIAL) 7.164 UNITS (7.350-7.450)
[2020-10-22] MEDS ORDERED: METOCLOPRAMIDE INJ 10MG/2ML VIAL (J2765 PER 1) IV PRN (06:50)
[2020-10-22] MEDS ORDERED: fentaNYL 100 MCG/2 ML INJECTION (J3010) IV PRN (06:50)
[2020-10-22] MEDS ORDERED: PHENYLEPHRINE HCL INJ 10 MG in D5W 100 ML IV SCH (06:50)
[2020-10-22] MEDS ORDERED: KETOROLAC 30 MG/ML 1ML VIAL IV PRN (06:50)
[2020-10-22] MEDS ORDERED: ONDANSETRON 4MG/2ML VIAL IV PRN (06:50)
[2020-10-22] MEDS ORDERED: HYDROMORPHONE HCL 0.5 MG/ 0.5 ML SYRINGE (J1170 PER 1) IV PRN (06:50)
[2020-10-22] MEDS ORDERED: propofoL 1,000 MG in IV 1 EA IV SCH (06:55)
[2020-10-22] MEDS ORDERED: SODIUM BICARBONATE 8.4% INJ 50 ML SYRINGE IV ONE (07:10)
[2020-10-22] MEDS ORDERED: CALCIUM CHLORIDE 10% 1 GM/10 ML SYR IV ONE (07:10)
[2020-10-22 07:23] LABS: HEMATOCRIT 50.2 % (36.0-47.0); HEMOGLOBIN 15.2 g/dl (12.0-15.5); MEAN CORPUSCULAR HEMOGLOBIN 28.8 pg (27.0-33.0); MEAN CORPUSCULAR HGB CONC 30.3 g/dl (32.0-36.5); MEAN CORPUSCULAR VOLUME 95.1 fl (80.0-96.0); PLATELET COUNT, AUTOMATED 373 10^3/uL (150-450); RED BLOOD COUNT 5.28 10^6/uL (4.00-5.40)
[2020-10-22] MEDS: SYMBICORT 160/4.5MCG INHALER 6GM INH SCH ×2 (08:00→19:35)
[2020-10-22 08:02] LABS: CALCIUM LEVEL 9.3 MG/DL (8.8-10.2); CREATININE FOR GFR 1.52 MG/DL (0.55-1.30); GLOMERULAR FILTRATION RATE 36.8 (>45); POTASSIUM SERUM 5.3 MEQ/L (3.5-5.1)
[2020-10-22] MEDS ORDERED: NOREPINEPHRINE 4 MG/4 ML AMP As Ordered ONE (08:28)
[2020-10-22 08:46] LABS: ABG BASE EXCESS -5.8 (-2.0-2.0); ABG HCO3 21.1 MEQ/L (22.0-26.0); ABG O2 SATURATION 95.4 % (95.0-99.0); ABG PARTIAL PRESSURE CO2 46.1 mmHg (35.0-45.0); ABG PARTIAL PRESSURE O2 75.8 mmHg (75.0-100.0); ABG STANDARD HCO3 19.8 MEQ/L (22.0-26.0); ABG TOTAL CO2 22.5 MEQ/L (23.0-31.0); ABG pH (ARTERIAL) 7.278 UNITS (7.350-7.450)
[2020-10-22] MEDS ORDERED: CALCIUM CHLORIDE 10% 1 GM/10 ML SYR ONE (08:48)
[2020-10-22] MEDS ORDERED: PHENYLEPHRINE 10MG/ML 1ML VIAL (J2370 PER 1) ONE (08:48)
[2020-10-22] MEDS ORDERED: SODIUM BICARBONATE 8.4% INJ 50 ML SYRINGE ONE (08:48)
[2020-10-22] MEDS: MIRALAX *UNIT DOSE* 17GM PACKET PO SCH ×2 (09:00→20:54)
[2020-10-22] MEDS ORDERED: NOREPINEPHRINE BITARTRATE 8 MG in D5W 492 ML IV SCH (09:00)
[2020-10-22] MEDS ORDERED: HYDROCORTISONE 100 MG/2 ML VIAL (J1720 PER 1) IV SCH (09:00)
--- NOTE | 2020-10-22 09:17 | REP ---
INDICATION: post intubation. COMPARISON: Yesterday at 1:23 a.m. TECHNIQUE: Portable FINDINGS: The technique utilized in obtaining the radiograph has magnified the cardiac silhouette and accentuated the interstitial markings. Since the last examination a left basilar opacity has developed blunting the left CP angle. The nasogastric tube seen previously has been advanced. Since the last examination a right-sided internal jugular central venous catheter has been placed the tip of which is in the superior vena cava. Since last examination an endotracheal tube has been placed the tip is in satisfactory position at the level of the clavicular heads. The cardiomediastinal silhouette is unchanged. There are no new right lung field changes. There is no change in the osseous structures. IMPRESSION: 1. Tubes and line as described above. 2. New left basilar opacity probable small left pleural effusion follow-up is suggested. <Electronically signed by Aldair Freitas > 10/22/20 0945
[2020-10-22] MEDS: HYDROCORTISONE 100 MG/2 ML VIAL (J1720 PER 1) IV SCH ×2 (09:28→16:28)
[2020-10-22] MEDS: PANTOPRAZOLE 40MG VIAL (C9113 PER 1) IV SCH (09:29)
[2020-10-22] MEDS: CHLORHEXIDINE GLUCONATE 0.12 % 15ML UDC (PERIDEX ORAL RINSE) MT SCH ×2 (09:29→20:54)
[2020-10-22] MEDS ORDERED: NS 500 ML IV ONE ×2 (11:25→15:00)
[2020-10-22] MEDS: MORPHINE 4 MG/ML 1ML VIAL/SYRINGE (J2270) IV PRN ×4 (11:35→23:53)
[2020-10-22] MEDS: VASOPRESSIN INJ 20 UNITS in NS 499 ML IV SCH ×2 (11:41→19:37)
[2020-10-22 13:40] LABS: ABG BASE EXCESS -6.2 (-2.0-2.0); ABG O2 SATURATION 94.8 % (95.0-99.0); ABG PARTIAL PRESSURE CO2 36.9 mmHg (35.0-45.0); ABG PARTIAL PRESSURE O2 72.5 mmHg (75.0-100.0); ABG STANDARD HCO3 19.4 MEQ/L (22.0-26.0); ABG TOTAL CO2 20.2 MEQ/L (23.0-31.0)
[2020-10-22 14:08] LABS: CALCIUM LEVEL 8.5 MG/DL (8.8-10.2); CREATININE FOR GFR 1.65 MG/DL (0.55-1.30); GLOMERULAR FILTRATION RATE 33.4 (>45)
[2020-10-22] MEDS: propofoL 1,000 MG in IV 1 EA IV SCH ×2 (14:14→21:48)
--- NOTE | 2020-10-22 14:44 | IPNPDOC ---
Subjective Date Seen The patient was seen on 10/22/20. Subjective Chief Complaint/HPI Patient is presently intubated in the ICU. Overnight events noted and discussed with the nocturnal wrist earlier this morning. Objective Physical Examination General Exam: Positive: Other (intubated, medical coma) Eye Exam: Positive: Conjunctiva & lids normal ENT Exam: Positive: Other ENT (eTT in place ) Neck Exam: Positive: Supple; Negative: JVD, thyromegaly Chest Exam: Positive: Clear to auscultation, Normal air movement Heart Exam: Positive: Rate Normal, Regular Rhythm, Normal S1, Normal S2; Negative: Murmurs, Rubs Abdomen Exam: Positive: BS Hypoactive, Tenderness, Other (wound vac in place) Extremity Exam: Positive: Normal pulses; Negative: Edema Assessment /Plan Assessment # Large bowel obstruction with bowel necrosis s/p ex-lap with colectomy and ostomy formation - mgmt per general surgery - continue Invanz - will consult ID in am # Chronic obstructive pulmonary disease (COPD) with suspected Cor pulmonale, # Chronic tobacco use # Acute respiratory failure on ventilator - mgmt per pulm/CC # Hypotension - wean off verónica gtt - start stress dose steroids # Diabetes type 2 - Sliding scale insulin coverage # Chronic diastolic CHF - stable # Plan/VTE VTE Prophylaxis Ordered?: No VTE Exclusion Pharmacological: Other (surgery) VS, I&O, 24H, Fishbone Vital Signs/I&O Vital Signs Date Time Temp Pulse Resp B/P (MAP) Pulse Ox O2 Delivery O2 Flow Rate FiO2 10/22/20 13:30 106 89/55 (66) 92 Ventilator 45 10/22/20 12:00 98.3 26 10/21/20 23:20 4.0 l I&O- Last 24 Hours up to 6 AM 10/22/20 05:59 Intake Total 2938 ml Output Total 750 ml Balance 2188 ml Laboratory Data 24H LABS Laboratory Tests 2 10/21/20 17:15: Bedside Glucose (Misc Panel) 254H 10/21/20 21:15: Lactic Acid Level 2.1*H 10/21/20 21:16: Blood Gas Bicarbonate Standard 22.9, Venous Blood pH 7.352, Venous Blood Partial Pressure CO2 44.1, Venous Blood Partial Pressure O2 85.7H, Venous Blood Total Carbon Dioxide 25.3, Venous Blood HCO3 23.9, Venous Blood Oxygen Saturation 96.3H, Venous Blood Base Excess -1.8 10/22/20 00:00: Bedside Glucose (Misc Panel) 255H 10/22/20 01:32: Lactic Acid Followup at 4 Hours 1.9 10/22/20 06:23: Bedside Glucose (Misc Panel) 179H 10/22/20 06:40: Blood Gas Bicarbonate Standard 17.1L, Arterial Blood pH 7.164*L, Arterial Blood Partial Pressure CO2 56.5H, Arterial Blood Partial Pressure O2 79.1, Arterial Blood Total CO2 21.6L, Arterial Blood HCO3 19.9L, Arterial Blood Base Excess - 9.4L, Arterial Blood Oxygen Saturation 93.9L 10/22/20 07:04: Nucleated Red Blood Cells % (auto) 0.0, Anion Gap 5L, Glomerular Filtration Rate 36.8L, Calcium Level 9.3, HX-Hfp-C-Type Natriuretic Peptide 346H 10/22/20 08:28: Blood Gas Bicarbonate Standard 19.8L, Arterial Blood pH 7.278L, Arterial Blood Partial Pressure CO2 46.1H, Arterial Blood Partial Pressure O2 75.8, Arterial Blood Total CO2 22.5L, Arterial Blood HCO3 21.1L, Arterial Blood Base Excess - 5.8L, Arterial Blood Oxygen Saturation 95.4 10/22/20 09:18: Lactic Acid Level 3.3*H 10/22/20 11:33: Bedside Glucose (Misc Panel) 279H 10/22/20 13:21: Blood Gas Bicarbonate Standard 19.4L, Arterial Blood pH 7.330L, Arterial Blood Partial Pressure CO2 36.9, Arterial Blood Partial Pressure O2 72.5L, Arterial Blood Total CO2 20.2L, Arterial Blood HCO3 19.0L, Arterial Blood Base Excess - 6.2L, Arterial Blood Oxygen Saturation 94.8L 10/22/20 13:30: Anion Gap 7L, Glomerular Filtration Rate 33.4L, Lactic Acid Level 3.5*H, Calcium Level 8.5L CBC/BMP Laboratory Tests 10/22/20 07:04 10/22/20 13:30 Microbiology Microbiology 10/22/20 Blood Culture, Received Pending 10/22/20 Blood Culture, Received Pending 10/20/20 Urine Culture - Final, Complete 10/20/20 Blood Culture - Preliminary, Resulted No Growth after 48 hours. All Specime... 10/20/20 Respiratory Virus Panel (PCR) (JOHNNY) - Final, Complete 10/20/20 Blood Culture - Preliminary, Resulted No Growth after 48 hours. All Specime... SAROJ NAZARIO MD October 22, 2020 14:39
--- NOTE | 2020-10-22 15:47 | RO ---
OPERATIVE NOTE DATE OF OPERATION: 10/22/2020 PREOPERATIVE DIAGNOSIS: Septic shock. POSTOPERATIVE DIAGNOSIS: Septic shock. PROCEDURE: Central line procedure. ATTENDING PHYSICIAN: Ellie Newman MD. INDICATION: Vasopressor administration. WARP BLEACHING VAT TENDER: ANESTHESIA: CONSENT: Due to the urgent nature of the procedure, the consent was implied, and the procedure was performed emergently. PROCEDURE SUMMARY: A central line insertion practice form was completed by an independent observer. Time out was performed prior to procedure. Full sterile technique was maintained throughout the procedure including surgical cap, mask, protective eyewear, full gown, and sterile gloves. The patient was placed in Trendelenburg position. The right neck region was prepped using Chlorhexidine scrub and draped in the sterile fashion using a full drape and a sterile probe cover employed. The right internal jugular vein was identified using ultrasound. Anesthesia was achieved over the vein using 1% lidocaine. Using real-time [id number] guidance, the introducer needle was inserted into the internal jugular vein under direct ultrasound visualization. Venous blood was withdrawn. The syringe was removed, and a guidewire was advanced into the introducer needle. The introducer needle was removed over the guidewire. A small incision was made through the skin surface with a scalpel, and the dilator was exchanged over the guidewire. After appropriate dilation was obtained, the dilator was exchanged over the wire for a triple lumen central venous catheter. The wire was removed, and the catheter was sutured in place at 18 cm. A sterile chlorhexidine impregnated dressing was placed over the catheter at the insertion site. The patient tolerated the procedure without any hemodynamic compromise. At time of procedure completion, all ports aspirated and flushed properly. Postprocedure chest x-ray showed no pneumothorax and the central line with the tip in the SVC. Estimated blood loss is less than 2 mL.
--- NOTE | 2020-10-22 15:53 | CR ---
CRITICAL CARE CONSULTATION DATE: 10/22/2020 CHIEF COMPLAINT: Large bowel obstruction. HISTORY OF PRESENT ILLNESS: History was obtained from the chart and from other collateral as patient was intubated and unable to provide history which examined. Miss Schilling is a 64-year-old female with a past medical history of COPD on nasal cannula oxygen supplementation, JIGNESH on BiPAP, history of heart failure with preserved EF and pulmonary hypertension, morbid obesity, hypertension, diabetes, diverticular disease, who presented with complaints of increasing abdominal distention, abdominal pain and difficulty passing stool for about a week. The patient had reported difficulty with having her bowel movements for about a week despite using MiraLax which she had been taking daily to help with maintaining bowel movements. She had a previous hospitalization June, this year for similar complaints that had resolved without need for operation. She has a prior history of diverticular disease with perforated diverticulitis and abscess formation that had required drainage back in 2018 and appeared to have an area of stricture in her sigmoid colon that was seen on her last admission. With having decreased bowel movements for the past week, almost none except for one on the day of admission with very pencil thin stool, she had also reported increasing abdominal distention as well as abdominal pain and nausea. The patient was found on her initial imaging to have evidence of a large bowel obstruction with the transition point in the sigmoid colon likely secondary to the previously noted stricture on her prior barium enema. There was no evidence of perforation initially. The patient was admitted and treated initially with Fleet enemas as well as morphine for pain control. Overnight, the patient was noted to have increasing abdominal pain that was no longer controlled with the previous doses of morphine. She was also noted to be more hypoxic on nasal cannula supplementation and reporting more dyspnea. The patient also had very little stool despite the enema. She had a repeat CT done which showed evidence of increasing dilation of the colon and small bowel but no obvious signs of perforation. Surgery was updated and the decision was made to take patient to the OR. The patient had surgical resection of her sigmoid colon with creation of a colostomy. There was not noted to be significant bowel necrosis or ischemia, although there did appear to be some serosal tears, there was no obvious perforation. There was about three liters of stool as well as gastric and biliary contents aspirated during the procedure with minimal blood loss. Postoperatively, the patient was kept intubated. She was also noted to be hypotensive and was on phenylephrine drip peripherally to maintain her MAPs above 65. During the procedure, the patient also received three liters of crystalloid fluid for resuscitation and was also on lactated Ringer's at 150 mL an hour. She was noted to have decreased urine output as well. In the ICU, the patient was on Propofol for sedation. She was minimally responsive to any painful stimuli including having minimal gag or cough reflex and was not overbreathing on the ventilator. Based on her ABG which was done in recovery where she was noted to have evidence of a metabolic and respiratory acidosis, her respiratory rate was increased and her vent settings were adjusted from her initial. The patient also had a central line placed so that she could have administration of vasopressors as well as for better vascular access as her only IVs were two 22 gauges in her thumbs. PAST MEDICAL AND SURGICAL HISTORY: 1. History of COPD on chronic nasal cannula oxygen supplementation, two liters a minute. Follows with pulmonary in Dr. Karo William. 2. JIGNESH on BiPAP. 3. Heart failure with preserved EF. 4. Moderate pulmonary hypertension. 5. Morbid obesity. 6. Hypertension. 7. Type 2 diabetes. 8. GERD. 9. Hiatal hernia. 10. History of recurrent diverticular disease with prior history of abscess. 11. Appendectomy. 12. Cholecystectomy. 13. Hysterectomy. SOCIAL HISTORY: Current above smoker of a few cigarettes daily. Drinks alcohol socially. FAMILY HISTORY: Noncontributory. HOME MEDICATIONS: 1. Albuterol. 2. Aspirin. 3. Symbicort. 4. Flonase. 5. Furosemide. 6. Mucinex. 7. Nicotine patch. 8. Omeprazole. 9. MiraLax. 10. Prednisone 20 mg daily. 11. Spiriva. 12. Tramadol. ALLERGIES: 1. MACROLIDES. 2. PENICILLINS. 3. QUINOLONES. 4. SULFA. 5. TETRACYCLINE. 6. ARIPIPRAZOLE. 7. METRONIDAZOLE. 8. VENLAFAXINE. PHYSICAL EXAMINATION: Vital signs: Temperature 97.8, pulse 104, respirations 15, blood pressure 140/70. O2 sat 94% on 60% FiO2. Ins 3.8 liters, out 325 mL. General: The patient is a morbidly obese female, is lying in the bed intubated and sedated. She is minimally responsive to any painful stimuli. She is not opening her eyes to voice currently or to painful stimuli. HEENT: Normocephalic, atraumatic. Pupils are small and sluggishly reactive to light bilaterally. Neck: Supple. Trachea is midline. There is no palpable adenopathy. There is an NG tube in place draining bilious content. Cardiac: Tachycardic, regular rate and rhythm. Normal S-1, S-2. Unable to clearly appreciate murmurs. Pulmonary: Diminished breath sounds bilaterally with somewhat coarse breaths sounds noted. There are a few crackles at the bases. No significant wheezes noted. Abdomen: Obese, soft with improvement and previously reported distention. There is a MADELINE drain in place as well as a wound VAC with a long midline incision. There is also a left-sided colostomy draining brown stool. Extremities: There is no significant lower extremity edema noted bilaterally. LABORATORY DATA: WBC 12.0, hemoglobin 15.2, platelets of 373. Chemistries: Sodium is 142. Potassium is 5.3. Chloride is 110. Bicarb is 27, BUN 27. Creatinine is 1.52. Glucose is 189. BNP was 346. ABG initially pH 7.164, pCO2 of 66.5, pO2 of 79.1. After our vent adjustments, repeat ABG: pH 7.278, pCO2 of 46.1 and pO2 of 75.8. Lactic acid was 3.3. IMAGING: Chest x-ray, 10/21/2020 showed bibasilar atelectasis and low lung volumes. Repeat chest x-ray, 10/22/2020 postoperatively showed the ET tube in place and an NG tube in place. There is also a right-sided central line with the tip in the SVC. There is improvement in the previously noted atelectasis. There is a possible left basilar opacity small left pleural effusion with blunting of the costophrenic angle. CT, abdomen and pelvis, 10/21/2020 showed increased atelectasis in the right base with some atelectasis as well in the left lower lobe. There is distal colonic obstruction with a stricture in the sigmoid colon and increasing dilation of the colon and small bowel compared to the previous CT. There is hepatic steatosis noted. ASSESSMENT AND PLAN: Miss Schilling is a 64-year-old female with a past medical history of diabetes, hypertension, COPD, JIGNESH on BiPAP with chronic hypoxemic respiratory failure, heart failure with preserved EF with pulmonary hypertension and prior history of diverticular disease, who presented with complaints of increasing abdominal distention, pain and decreased bowel movements for about a week. The patient has had a previous hospitalization in June with similar complaints that resolved nonoperatively. At that time, she was found to have stricture in the sigmoid colon. She was being followed up by surgery as an outpatient and is pending a colonoscopy as an outpatient prior any potential surgeries. She was on MiraLax chronically to maintain spontaneous bowel movements. For the past week however despite using MiraLax, she was noted to have decreased bowel movements and increasing abdominal pain, nausea and distention. On her CT, she was found to have a large bowel obstruction at the area of stricture in her sigmoid colon. She was initially managed conservatively with Fleet enemas and NG tube for decompression. Overnight, however, she had increasing abdominal pain and a CT showed worsening distention of her small and large bowel. The patient was therefore taken to the OR by surgery where she had resection and creation of a colostomy. Postoperatively, she was kept intubated and transferred to the medical ICU. The patient was noted to be hypotensive postoperatively as well and was on phenylephrine from the OR. She was also noted to have a metabolic and respiratory acidosis and so her vent settings were adjusted with increase in her respiratory rate. The patient was also started on broad spectrum antibiotics in the OR with Ertapenem. She had placement of a central line in the ICU for vascular access and for vasopressor administration. Neuro. The patient is currently intubated and sedated. Initially postoperatively she was very minimally responsive to any painful stimuli including having minimal gag and cough reflex. Later in the morning, she was noted to be more responsive and was opening her eyes to voice. Continue with Propofol for sedation. Continue morphine p.r.n. for pain control. Would attempt sedation vacation in the a.m. to assess weaning trial. Cardiac. History of hypertension and heart failure with preserved EF and pulmonary hypertension. The patient was noted postoperatively to be hypotensive likely in the setting of her surgery with potential for sepsis and septic shock. The patient had mildly elevated lactic acid postoperatively. She did receive three liters during her surgery and was on LR postoperatively as well which was discontinued given her hyperkalemia. She was given an additional 500 mL bolus after CVP was 8. We will continue her with fluids with half NS at 100 mL an hour and continue to trend her lactics. The patient had a right IJ triple lumen placed and she was started on Levophed for blood pressure support. She was requiring slightly increasing amounts of Levophed and she was also noted to have decreasing urine output. Vasopressin was started then for the renal protective effects and to help wean from the Levophed. We will continue vasopressors to maintain a MAP above 65. The patient does have a history of heart failure with preserved EF and pulmonary hypertension. She does not appear to be overly fluid overloaded at this time. She did have development postoperatively of a small left pleural effusion although suspect some of this is more transudative from her bowel surgery and some third spacing. Her BNP was only mildly elevated. Would continue to monitor her fluid status closely. However, given her shock, we will continue with fluid repletion for now although would monitor for evidence of increasing pulmonary edema and third spacing. Pulmonary. The patient has reported history of severe COPD on chronic oxygen. She also has JIGNESH on BiPAP. She follows with an outside gem cutter. On the ventilator, the patient does not appear to be significantly obstructed. Her plateau pressures were also only 15. Would continue her with her home inhaler of Symbicort and continue with nebulized bronchodilators. She was reportedly on prednisone chronically and so we will continue with stress dose steroids at 50 mg q.8 hours for three days and then taper to her usual prednisone dose. The patient is on mechanical ventilation postoperatively. She is on PRBC with her vent settings adjusted to 480/26/50 and 8. A repeat ABG did show improvement in her metabolic and respiratory acidosis. Given her reported history of severe COPD, the patient would likely need to be extubated to noninvasive positive pressure ventilation. Would attempt a weaning trial in the a.m. to assess the possibility of extubation. Continue daily chest x-rays and ABGs while intubated. Continue vent bundle care head of bed elevation and chlorhexidine mouthwash. GI. Patient with large bowel obstruction secondary to a sigmoid colon stricture, now status post colonic resection with creation of colostomy. Appreciate surgery consult recommendations. She has a wound VAC in place as well as a MADELINE drain draining serosanguineous fluid. She has had improvement in her abdominal distention. There was no reported significant ischemic bowel or perforation. However, she does appear to have sepsis likely secondary to an intra-abdominal source. I will continue Ertapenem for now and will follow up results of her blood cultures. Continue NG tube to low wall intermittent suction. Renal/endo. Patient with a history of noninsulin dependent diabetes. She was noted postoperatively to have evidence of RUTH ANN likely in the setting of hypotension and shock. She did have decreased urine output earlier which has since improved later on in the day. We will continue to monitor her renal function and Is and Os. Would renally dose medications and avoid nephrotoxins if possible. Patient does have evidence of hyperkalemia and hyperchloremia. Her LR was discontinued and she is on half NS at this time. We will follow up repeat BMP later this evening. We will continue fingerstick glucose checks and sliding scale coverage. She is NPO currently. DVT prophylaxis: She was on Lovenox which was held for her surgery. Would discuss with general surgery about restarting her DVT prophylaxis. GI prophylaxis: Pantoprazole. Code Status: FULL CODE. Total critical care time spent not including any procedures approximately two hours.
[2020-10-22 17:47] LABS: VENOUS BASE EXCESS -7.2 (-2.0-2.0); VENOUS O2 SATURATION 83.3 % (60.0-80.0); VENOUS PARTIAL PRESSURE CO2 46.4 mmHg (38.0-50.0); VENOUS PARTIAL PRESSURE O2 47.9 mmHg (30.0-50.0); VENOUS PH 7.253 UNITS (7.330-7.430); VENOUS STANDARD HCO3 18.4 MEQ/L; VENOUS TOTAL CO2 21.5 MEQ/L (24.0-28.0)
[2020-10-22 18:18] LABS: CALCIUM LEVEL 8.2 MG/DL (8.8-10.2); CREATININE FOR GFR 1.69 MG/DL (0.55-1.30); GLOMERULAR FILTRATION RATE 32.5 (>45)
[2020-10-22] MEDS: ERTAPENEM SODIUM 1 GM in NS MINI-BAG PLUS 50 ML IV SCH (20:54)
[2020-10-22] MEDS ORDERED: NOREPINEPHRINE BITARTRATE 16 MG in D5W 484 ML IV SCH (21:00)
[2020-10-23] VITALS (76 sets, daily range): BP systolic 80–149; BP diastolic 45–85
[2020-10-23] MEDS: HumaLOG INSULIN (NovoLOG) PER UNIT SC SCH ×5 (00:12→18:03)
[2020-10-23] MEDS: HYDROCORTISONE 100 MG/2 ML VIAL (J1720 PER 1) IV SCH ×3 (01:43→18:02)
[2020-10-23] MEDS: IPRATROPIUM 0.5MG/ALBUTEROL 2.5MG INH SOL UD 3ML (DUONEB) NEB SCH ×4 (01:46→20:04)
[2020-10-23] MEDS: VASOPRESSIN INJ 20 UNITS in NS 499 ML IV SCH (03:51)
[2020-10-23] MEDS: propofoL 1,000 MG in IV 1 EA IV SCH (05:04)
[2020-10-23] MEDS: MORPHINE 4 MG/ML 1ML VIAL/SYRINGE (J2270) IV PRN (05:27)
[2020-10-23 05:44] LABS: HEMATOCRIT 41.2 % (36.0-47.0); MEAN CORPUSCULAR HEMOGLOBIN 28.8 pg (27.0-33.0); MEAN CORPUSCULAR HGB CONC 30.8 g/dl (32.0-36.5); MEAN CORPUSCULAR VOLUME 93.4 fl (80.0-96.0); RED BLOOD COUNT 4.41 10^6/uL (4.00-5.40); WHITE BLOOD COUNT 15.1 10^3/uL (4.0-10.0)
[2020-10-23 05:49] LABS: HEMOGLOBIN 12.7 g/dl (12.0-15.5); PLATELET COUNT, AUTOMATED 231 10^3/uL (150-450)
[2020-10-23] MEDS ORDERED: ERTAPENEM SODIUM 1 GM in NS MINI-BAG PLUS 50 ML IV SCH (06:00)
[2020-10-23 06:14] LABS: ABG BASE EXCESS -3.4 (-2.0-2.0); ABG HCO3 22.3 MEQ/L (22.0-26.0); ABG O2 SATURATION 92.5 % (95.0-99.0); ABG PARTIAL PRESSURE CO2 42.5 mmHg (35.0-45.0); ABG STANDARD HCO3 21.5 MEQ/L (22.0-26.0); ABG TOTAL CO2 23.6 MEQ/L (23.0-31.0); ABG pH (ARTERIAL) 7.337 UNITS (7.350-7.450)
[2020-10-23 06:16] LABS: CALCIUM LEVEL 8.1 MG/DL (8.8-10.2); CREATININE FOR GFR 1.45 MG/DL (0.55-1.30); GLOMERULAR FILTRATION RATE 38.8 (>45); POTASSIUM SERUM 4.7 MEQ/L (3.5-5.1)
[2020-10-23] MEDS: NS 0.45% 1,000 ML IV SCH (06:41)
[2020-10-23] MEDS: SYMBICORT 160/4.5MCG INHALER 6GM INH SCH ×2 (07:23→20:00)
--- NOTE | 2020-10-23 07:47 | REP ---
INDICATION: intubated. COMPARISON: Comparison chest x-ray October 22, 2020. TECHNIQUE: Portable upright AP chest radiograph. FINDINGS: Endotracheal tube remains in good position at the level of the proximal clavicles. Nasogastric tube enters the left upper quadrant of the abdomen. Monitoring electrodes are seen. A right internal jugular central venous line terminates in the expected location of the superior vena cava.. There is slight blunting of the left lateral pleural angle again noted unchanged. Platelike atelectasis is seen in the right base above the right hemidiaphragm. No new infiltrate. IMPRESSION: Endotracheal and nasogastric tubes in place. Blunting of the left lateral pleural angle. Platelike atelectasis right base.. <Electronically signed by Tenzin Ramírez > 10/23/20 [id number]
[2020-10-23] MEDS: CHLORHEXIDINE GLUCONATE 0.12 % 15ML UDC (PERIDEX ORAL RINSE) MT SCH (08:50)
[2020-10-23] MEDS: PANTOPRAZOLE 40MG VIAL (C9113 PER 1) IV SCH (08:51)
[2020-10-23] MEDS: HEPARIN SOD (PORCINE) 5000UNITS/ML 1ML VIAL/SYRINGE SQ SCH ×2 (08:51→15:38)
[2020-10-23] MEDS: MIRALAX *UNIT DOSE* 17GM PACKET PO SCH ×2 (08:52→20:13)
--- NOTE | 2020-10-23 09:27 | CCN ---
CRITICAL CARE NOTE DATE: 10/23/2020 CRITICAL CARE TIME: One hour and 13 minutes. This excludes all procedures. POSTOP DAY: #1. ERTAPENEM: Day #2. One dose of meropenem on 10/20. SUBJECTIVE: Rossana is a 64-year-old female now postop day one from bowel resection. Remains on mechanical ventilation. Patient remains on vasopressor therapy but was starting to wean off. She is also on propofol for sedation. She remains hypoxic requiring FiO2 of 0.55 with a PaO2 of 64. Chest x-ray shows some blunting of the left costophrenic angle and minimal infiltrate in the right. She has known chronic respiratory issues, suspected chronic COPD, possible obesity hypoventilation, on bilevel invasive therapy as an outpatient with history of chronic steroid use. She has been afebrile overnight. Urine output is approximately 25 mL per hour. OBJECTIVE: VITAL SIGNS: Temperature 99.0, pulse 105 with sinus tachycardia, respiratory rate 22, blood pressure 106/60 with a MAP of 75, oxygen saturation 91% on 0.50 FiO2. GENERAL: Sedated on mechanical ventilation. Yet to have sedation vacation this morning. When sedation is lifted, she does move her arms appropriately. HEENT: Sclera clear and nonicteric. Pupils are equal, reactive to light but small, approximately 3 mm. Mucous membranes are moist. Tongue is midline. Mallampati IV airway. A 7.5 endotracheal tube is in place. She is hirsute. NECK: Supple. No tracheal deviation or mass. There is a right internal jugular vein catheter in place. CARDIAC: Distant S1 and S2 without audible murmur, rub, or gallop. No elevated JVP. No peripheral edema. PULMONARY: Decreased breath sounds at the bases. Otherwise clear to auscultation without rales, rhonchi, or wheezes. ABDOMEN: Ostomy with pink mucosa and brown stool. No evidence of hemorrhage. Abdomen soft, postop abdomen. EXTREMITIES: No cyanosis, clubbing, or edema. SKIN: Pale without rash, jaundice, or bruising. NEUROLOGIC: Moves all extremities. No evidence of tremor or seizure activity. LABORATORY DATA: Laboratory evaluation shows an arterial blood gas with a pH 7.34, pCO2 42, PaO2 64 on 0.55 FiO2. White blood cell count 15.1, hemoglobin 12.7, platelet count 231. Sodium 136, potassium 4.7, chloride 106, bicarb 25, BUN 28, creatinine 1.45 which is trending down, glucose 236. All cultures so far have not revealed any abnormalities. Chest x-ray as mentioned above. IMPRESSION/PLAN: Critical attention is required for respiratory failure, timing of extubation in the face of lactic acidosis, and acute kidney injury with recent bowel obstruction requiring resection and ostomy. 1. Respiratory failure. Continues with some hypoxia. Because of her blood pressure issues and hypoxia, I do not believe she is a candidate for extubation this morning but possibly tomorrow. Will stop IV fluids, attempt to stop vasopressor therapy, and possibly change sedation if necessary. At this point in time because of her hypotension, I cannot perform diuresis. 2. Lactic acidosis. Lactate has been decreasing. Likely from recent acute abdomen. 3. Acute kidney injury. Creatinine also trending down. No indication for acute dialysis at this point in time. Avoid offending agents and monitor urine output. 4. History of chronic steroid use. Patient is on hydrocortisone for possible adrenal insufficiency. This is day #2. 5. GI sepsis on ertapenem day 2. Did receive one dose of meropenem on 10/20. Currently ostomy appears well vascularized. 6. Abnormal chest x-ray with left CPA blunting and possible effusion. Likely from abdominal process. Minimal infiltrate on the right. Will continue to monitor for signs of untreated sepsis. 7. History of obstructive sleep apnea. Will likely require bilevel noninvasive therapy at the time of extubation. 8. Hyperglycemia with history of type 2 diabetes. I have added Levemir to her regimen. 9. GERD. On GI prophylaxis with Protonix. 10. History of nicotine dependence. Will need counseling once awake. 11. DVT prophylaxis. TEDS and sequentials are in place currently. Heparin should be administered when surgically appropriate as patient is at high risk for DVT. CRITICAL CARE TIME: As mentioned above. This excludes all procedures. MTDD
--- NOTE | 2020-10-23 09:57 | CCN ---
CRITICAL CARE NOTE DATE: 10/23/2020 ADDITIONAL CRITICAL CARE TIME: Twenty minutes. I was called to the patient's bedside as she self extubated. She was awake and talking. Oxygen saturations are approximately 86% on 5 liters. She has known obstructive sleep apnea. She was able to talk, had a fair cough. Therefore, I have placed her on her usual CPAP therapy. CPAP pressure of 8 cm gave her tidal volumes of approximately 600. She still has the NG tube in place. She is now off vasopressor therapy and sedation. Will continue to monitor for need for reintubation. Will check a blood gas in two hours to ensure adequate oxygenation ventilation while off mechanical ventilation.
[2020-10-23 11:46] LABS: ABG BASE EXCESS -3.6 (-2.0-2.0); ABG HCO3 21.4 MEQ/L (22.0-26.0); ABG O2 SATURATION 98.6 % (95.0-99.0); ABG PARTIAL PRESSURE CO2 38.4 mmHg (35.0-45.0); ABG PARTIAL PRESSURE O2 145.5 mmHg (75.0-100.0); ABG STANDARD HCO3 21.6 MEQ/L (22.0-26.0); ABG TOTAL CO2 22.6 MEQ/L (23.0-31.0); ABG pH (ARTERIAL) 7.364 UNITS (7.350-7.450)
[2020-10-23] MEDS: MORPHINE 2 MG/ML 1ML VIAL (J2270) IV PRN ×2 (15:38→20:10)
[2020-10-23] MEDS: ERTAPENEM SODIUM 1 GM in NS MINI-BAG PLUS 50 ML IV SCH (20:11)
[2020-10-23] MEDS: LEVEMIR (INSULIN DETEMIR) 1 UNITS/0.01ML SC SCH (20:13)
[2020-10-24] VITALS (19 sets, daily range): BP systolic 100–142; BP diastolic 52–86
[2020-10-24] MEDS: HYDROCORTISONE 100 MG/2 ML VIAL (J1720 PER 1) IV SCH ×2 (00:36→08:04)
[2020-10-24] MEDS: HEPARIN SOD (PORCINE) 5000UNITS/ML 1ML VIAL/SYRINGE SQ SCH ×4 (00:40→23:15)
[2020-10-24] MEDS: IPRATROPIUM 0.5MG/ALBUTEROL 2.5MG INH SOL UD 3ML (DUONEB) NEB SCH ×4 (01:29→20:00)
--- NOTE | 2020-10-24 02:09 | REP ---
INDICATION: check NGT placement COMPARISON: 10/23/2020 TECHNIQUE: Portable AP view of the chest FINDINGS: The nasogastric tube courses below the left hemidiaphragm. However I suspect that the side port is above the level of the gastroesophageal junction and warrants advancement. Right IJ line with tip in the SVC. Cardiac silhouette is normal. Lung nava are stable and relatively clear without focal consolidation, obvious effusion, or pneumothorax. IMPRESSION: 1. Nasogastric tube as described above may warrant advancement. <Electronically signed by Kai Nguyen > 10/24/20 020
[2020-10-24] MEDS: MORPHINE 2 MG/ML 1ML VIAL (J2270) IV PRN ×7 (02:25→23:15)
[2020-10-24 05:00] LABS: HEMATOCRIT 32.9 % (36.0-47.0); MEAN CORPUSCULAR HEMOGLOBIN 29.1 pg (27.0-33.0); MEAN CORPUSCULAR HGB CONC 31.9 g/dl (32.0-36.5); MEAN CORPUSCULAR VOLUME 91.1 fl (80.0-96.0); PLATELET COUNT, AUTOMATED 185 10^3/uL (150-450); RED BLOOD COUNT 3.61 10^6/uL (4.00-5.40); WHITE BLOOD COUNT 13.2 10^3/uL (4.0-10.0)
[2020-10-24 05:08] LABS: HEMOGLOBIN 10.5 g/dl (12.0-15.5)
[2020-10-24 05:19] LABS: ATYPICAL LYMPH 2 % (0-5); LYMPHOCYTES 13 % (16-44); METAMYELOCYTES 3 % (0-0); MONOCYTES 5 % (0-5); NEUTROPHILS 74 % (28-66)
[2020-10-24 05:20] LABS: HYPOCHROMASIA 1+; PLATELET ESTIMATE NORMAL (NORMAL)
[2020-10-24 05:28] LABS: ABG BASE EXCESS 2.7 (-2.0-2.0); ABG HCO3 27.6 MEQ/L (22.0-26.0); ABG O2 SATURATION 95.7 % (95.0-99.0); ABG PARTIAL PRESSURE CO2 44.1 mmHg (35.0-45.0); ABG PARTIAL PRESSURE O2 80.9 mmHg (75.0-100.0); ABG STANDARD HCO3 26.8 MEQ/L (22.0-26.0); ABG pH (ARTERIAL) 7.415 UNITS (7.350-7.450)
[2020-10-24 05:30] LABS: ALBUMIN 1.8 GM/DL (3.2-5.2); ALT/SGPT 77 U/L (12-78); BILIRUBIN,TOTAL 0.5 MG/DL (0.2-1.0); BLOOD UREA NITROGEN 17 MG/DL (7-18); CALCIUM LEVEL 8.5 MG/DL (8.8-10.2); CARBON DIOXIDE LEVEL 27 MEQ/L (21-32); CHLORIDE LEVEL 110 MEQ/L (98-107); CHOLESTEROL LEVEL 111 MG/DL (< 200); CPK CREATINE PHOSPHOKINASE 572 U/L (26-192); CREATININE FOR GFR 0.69 MG/DL (0.55-1.30); GLOMERULAR FILTRATION RATE > 60.0 (>45); GLUCOSE, FASTING 126 MG/DL (70-100); LDH LACTATE DEHYDROGENASE 251 U/L (84-246); POTASSIUM SERUM 4.2 MEQ/L (3.5-5.1); SODIUM LEVEL 142 MEQ/L (136-145); TOTAL PROTEIN 4.5 GM/DL (6.4-8.2); TRIGLYCERIDES LEVEL 241 MG/DL (<150)
[2020-10-24] MEDS: HumaLOG INSULIN (NovoLOG) PER UNIT SC SCH ×5 (06:00→23:14)
[2020-10-24] MEDS: SYMBICORT 160/4.5MCG INHALER 6GM INH SCH ×2 (07:24→20:26)
[2020-10-24] MEDS: PANTOPRAZOLE 40MG VIAL (C9113 PER 1) IV SCH (08:04)
[2020-10-24] MEDS: MIRALAX *UNIT DOSE* 17GM PACKET PO SCH ×2 (08:05→20:34)
--- NOTE | 2020-10-24 09:46 | IPN ---
PROGRESS NOTE DATE: 10/23/2020 SUBJECTIVE: The patient's status had been discussed with Dr. Farias. From a surgical standpoint, her white count has dropped since yesterday. Her vitals have been stable and she has been less tachycardic and her blood pressure has come up nicely and the pressors are weaning off. There is a question whether she will be able to be extubated or not over the day, but overall appears to be better today than she was yesterday from all the markers. Her urine output has been good and her drain is still serosanguineous and a significant amount overnight. Her ostomy actually appears more pink, but somewhat edematous; however, viable. OBJECTIVE: On physical examination, her abdomen is morbidly obese and nontender. Drain is draining serosanguineous. Midline incision is covered with a wound VAC type of drain. The ostomy is pink and functioning with stool within this. She has a great deal of NG tube output still and it is bilious. ASSESSMENT AND PLAN: The patient is doing relatively well considering her significant operative intervention that occurred and overall at this point, I do feel that we need to keep her n.p.o. and continue with supportive care. I would recommend that we avoid p.o. at this time. We will keep the MADELINE drain in and we will see how she is doing over the ensuing few days prior to clamping the NG tube and seeing if she tolerates this.
--- NOTE | 2020-10-24 10:01 | IPN ---
PROGRESS NOTE DATE: 10/24/2020 SUBJECTIVE: The patient actually is making some good progress. She was extubated and seems to be doing well with being extubated. Her NG tube is still putting out a lot of bilious output. She is making good urine output and she is on the BiPAP right now doing well on this. Her white count did bump yesterday a little bit, but today it is back down to 13.2. She has a Oc-Alegre that has serosanguineous drainage. It does not look like there is any active bleeding from here or even from the colostomy site, although her hematocrit did drop and I am not sure if that is dilutional at this time or not. The pathology did come back as diverticulosis/diverticulitis. OBJECTIVE: Her abdomen is obese and nontender. Oc-Alerge has serosanguineous draining adequately. The ostomy is pink, looks nice and viable, and has some stool output, but not a lot of gas in this area. IMPRESSION AND PLAN: The patient is status post sigmoid colectomy, colostomy, and seems to be making some good progress from a surgical standpoint. However, she is still not ready for increasing her diet or discontinuing the nasogastric (NG) tube. It may take a few days before that is a reasonable next step, but she can have some ice chips if necessary and we will see how she does over the ensuing few days.
--- NOTE | 2020-10-24 10:08 | RO ---
OPERATIVE NOTE DATE OF OPERATION: 10/22/2020 PREOPERATIVE DIAGNOSIS: Large bowel obstruction with lactic acidosis, increased abdominal pain and shortness of breath. POSTOPERATIVE DIAGNOSIS: Sigmoid colon obstruction with distended colon and small bowel. PROCEDURE: Sigmoid colectomy and colostomy. SURGEON: Jim Pa Jr, MD [employer] TUTOR: ANESTHESIA: General endotracheal anesthesia. EBL: 150 mL. DRAINAGE: 3 liters of bile/feculent material was removed from the small bowel and large bowel. DESCRIPTION OF PROCEDURE: The patient was taken to the operating room and was given general anesthesia. After adequate anesthesia and preoperative antibiotics were given the patient was prepped and draped in usual sterile fashion. A midline incision was made with skin knife. Electrocautery was used to cut through dermis and underlying subcutaneous tissue. Eventually the midline was opened enough that what was present was omentum tightly adherent to the left lower quadrant area which was presumed previous episodes of diverticulitis/possible malignancy. Given that I was not able to visualize this area very well I transected the omentum superiorly to allow this to flap down and make the small bowel easier to mobilize out of the pelvis once I was able to transect this using LigaSure. The small bowel was mobilized; however, there was so much distended small bowel that I was still not able to pack this away to visualize the pelvis. Thus I decompressed the small bowel with 18-[place] NG tube and got about 2 liters of fluid out decompressing this nicely. Unfortunately once I was able to do this adequately what I noticed was that the colon was still significantly distended and there were even a few little serosal tears on the right colon and the sigmoid colon. The sigmoid colon was decompressed there and distally. However, proximal to this it was very distended and extremely tight. Thus, I decompressed the large bowel using 20-[place] chest tube, placing this proximally and distally, irrigating and was able to decompress the colon relatively nicely and I was able to get about a liter of fluid out. Once I was able to get this much additional fluid out then the abdomen was much easier to mobilize the bowel and pack this away with Bookwalter retractor. Once I was able to retract this away then the omentum sticking down to the sigmoid colon was transected using LigaSure. The sigmoid colon was then mobilized using combination going proximally and distally to this area of scarring and it was chronically scarred not truly a mass effect per se but definitely strictured down and tightly adherent to the peritoneum laterally on the pelvic sidewall overlying the vessels. Eventually, using some blunt dissection as well as slow meticulous dissection over that area, I was able to mobilize the sigmoid colon proximal to this. I then transected this with CALLIE stapler and the mesentery was taken with a LigaSure distally down below the area of thickening and inflammation. A Contour was able to transect the bowel and the LigaSure completed the resection. There was some oozing from the mesentery which was controlled with suture ligature of 2-0 Vicryl. Once good hemostasis was achieved the pelvis was copiously irrigated until clear and packed with dry gauze. The descending colon was mobilized using LigaSure up along the white line of Toldt, mobilizing the colon itself. Once I was able to create a long enough pedicle to allow this to be brought up through the anterior abdominal wall given the patient's overall girth and significant abdominal wall thickness, I had concerns that this would create some significant ischemia. Thus I mobilized this all the way up to the splenic flexure and after this was adequately mobilized a transabdominal/transrectal muscle incision was made with electrocautery and the colon was brought out through fascial defect that allowed three fingers. The colon which had been dilated, edematous, was brought out, was somewhat venous congested but still had good bleeding from the distal portion of this. The midline was copiously irrigated until clear. Oc-Alegre drain was left in the pelvis. The midline was brought together with looped #0 PDS in running manner and henry were used to approximate the skin. The ostomy then was created using 3-0 Vicryl in Shruthi manner. The ostomy appliance was applied. The patient was awakened from her anesthesia some minimal amounts but left intubated given her previous history of significant COPD, respiratory compromise issues. She was brought to the recovery room on minimal pressors but stable hemodynamically and respiratory-hernandez doing well on the ventilator.
[2020-10-24] MEDS: TIOTROPIUM INHALER/CAPSULE (SPIRIVA) INH SCH (10:15)
[2020-10-24] MEDS ORDERED: POTASSIUM PHOSPHATE INJ 20 MMOL in D5W 250 ML IV ONE (12:00)
[2020-10-24] MEDS: ERTAPENEM SODIUM 1 GM in NS MINI-BAG PLUS 50 ML IV SCH (20:35)
[2020-10-25] VITALS (8 sets, daily range): BP systolic 96–141; BP diastolic 53–73
[2020-10-25] MEDS: MORPHINE 2 MG/ML 1ML VIAL (J2270) IV PRN ×5 (01:21→22:24)
[2020-10-25] MEDS: IPRATROPIUM 0.5MG/ALBUTEROL 2.5MG INH SOL UD 3ML (DUONEB) NEB SCH ×4 (02:01→19:28)
[2020-10-25 05:02] LABS: HEMATOCRIT 31.6 % (36.0-47.0); HEMOGLOBIN 9.7 g/dl (12.0-15.5); MEAN CORPUSCULAR HEMOGLOBIN 28.6 pg (27.0-33.0); MEAN CORPUSCULAR HGB CONC 30.7 g/dl (32.0-36.5); MEAN CORPUSCULAR VOLUME 93.2 fl (80.0-96.0); PLATELET COUNT, AUTOMATED 199 10^3/uL (150-450); RED BLOOD COUNT 3.39 10^6/uL (4.00-5.40); WHITE BLOOD COUNT 10.2 10^3/uL (4.0-10.0)
[2020-10-25 05:19] LABS: ALBUMIN 1.7 GM/DL (3.2-5.2); ALT/SGPT 56 U/L (12-78); BILIRUBIN,TOTAL 0.2 MG/DL (0.2-1.0); BLOOD UREA NITROGEN 13 MG/DL (7-18); CALCIUM LEVEL 8.9 MG/DL (8.8-10.2); CARBON DIOXIDE LEVEL 32 MEQ/L (21-32); CHLORIDE LEVEL 110 MEQ/L (98-107); CHOLESTEROL LEVEL 121 MG/DL (< 200); CPK CREATINE PHOSPHOKINASE 414 U/L (26-192); CREATININE FOR GFR 0.65 MG/DL (0.55-1.30); GLOMERULAR FILTRATION RATE > 60.0 (>45); GLUCOSE, FASTING 82 MG/DL (70-100); LDH LACTATE DEHYDROGENASE 226 U/L (84-246); PHOSPHORUS LEVEL 2.2 MG/DL (2.5-4.9); POTASSIUM SERUM 3.9 MEQ/L (3.5-5.1); SODIUM LEVEL 143 MEQ/L (136-145); TOTAL PROTEIN 5.6 GM/DL (6.4-8.2); TRIGLYCERIDES LEVEL 262 MG/DL (<150)
[2020-10-25 05:32] LABS: ATYPICAL LYMPH 2 % (0-5); LYMPHOCYTES 18 % (16-44); METAMYELOCYTES 1 % (0-0); MONOCYTES 1 % (0-5); NEUTROPHILS 76 % (28-66)
[2020-10-25 05:33] LABS: PLATELET ESTIMATE NORMAL (NORMAL)
[2020-10-25 05:34] LABS: ANISOCYTOSIS 1+
[2020-10-25] MEDS: HumaLOG INSULIN (NovoLOG) PER UNIT SC SCH ×3 (06:00→18:00)
[2020-10-25 06:05] LABS: ABG BASE EXCESS 4.2 (-2.0-2.0); ABG HCO3 29.2 MEQ/L (22.0-26.0); ABG O2 SATURATION 97.2 % (95.0-99.0); ABG PARTIAL PRESSURE CO2 45.8 mmHg (35.0-45.0); ABG STANDARD HCO3 28.3 MEQ/L (22.0-26.0); ABG TOTAL CO2 30.6 MEQ/L (23.0-31.0); ABG pH (ARTERIAL) 7.423 UNITS (7.350-7.450)
[2020-10-25] MEDS: TIOTROPIUM INHALER/CAPSULE (SPIRIVA) INH SCH (07:45)
[2020-10-25] MEDS: SYMBICORT 160/4.5MCG INHALER 6GM INH SCH ×2 (07:45→19:27)
[2020-10-25] MEDS: MIRALAX *UNIT DOSE* 17GM PACKET PO SCH ×2 (08:40→20:09)
[2020-10-25] MEDS: methylPREDNISolone 40MG 1ML VIAL IV SCH (08:57)
[2020-10-25] MEDS: HEPARIN SOD (PORCINE) 5000UNITS/ML 1ML VIAL/SYRINGE SQ SCH ×2 (08:57→17:11)
[2020-10-25] MEDS: PANTOPRAZOLE 40MG VIAL (C9113 PER 1) IV SCH (08:58)
--- NOTE | 2020-10-25 10:10 | CCN ---
CRITICAL CARE NOTE DATE: 10/24/2020 SUBJECTIVE: The patient is seen in the intensive care unit. This is hospital day #4, ICU day #2. She self-extubated a short while ago. She is awake and complaining of abdominal pain. OBJECTIVE: VITAL SIGNS: Temperature 98, T-max for the past 24 hours 99.4, pulse rate 94, respirations 14, blood pressure 129/61. Noninvasive ventilation with an FiO2 of 40% is yielding a saturation of 95. INTAKE AND OUTPUT: For the past 24 hours, 1496 out and 2690 out; since midnight 0 in and 520 out. GENERAL APPEARANCE: At bedside, she is ill-appearing. HEENT: Oral mucosa is pink. There is an NG tube in the left naris. No stridor over the trachea. Jugular veins are not distended. CHEST: Symmetric. Expiratory phase is prolonged. Respiratory efforts are rested. Breath sounds are diminished and coarse. HEART: Sounds are regular. ABDOMEN: Soft with a colostomy in place. The site looks clean. There are no appreciable bowel sounds. EXTREMITIES: Muscle weakness is noted. DIAGNOSTIC STUDIES: White cell count is down to 13.2, hemoglobin is down to 10.5, hematocrit 32.9, platelet count is 185,000. Differential white cell count shows 74% neutrophils, 13% lymphocytes. The electrolytes are sodium 142, potassium 4.2, chloride 110, CO2 of 27, BUN is 17, creatinine 0.69, glucose 126. Most recent lactic acid 2.7. Calcium 8.5, phosphorus 2.0. LDH is expectedly elevated at 251 as is CPK at 572 and the albumin is 1.8. Arterial blood gases showed a pH of 7.41, pCO2 of 44, pO2 of 80. Chest imaging shows reasonable inflation and no obvious infiltrates. On review of microbiology studies, she has blood cultures negative x3. MEDICATIONS REVIEW: She is receiving Ertapenem day #3, hydrocortisone 50 mg q. 8 hours, Symbicort, subcutaneous heparin, Protonix, and DuoNebs q. 6 hours. ASSESSMENT AND PLAN: 1. The primary problem requiring critical attention is acute respiratory failure. We will wean the patient to her usual CPAP with oxygen from noninvasive ventilation if able. 2. Acute kidney injury. Renal indices are acceptable. We will follow urine output closely. 3. Hypophosphatemia. We will replace and recheck. 4. Underlying obstructive lung disease. The patient is on inhaled long-acting beta agonist inhaled corticosteroids. We will add an anticholinergic and change her steroid to intermediate acting. 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 5. Gastrointestinal (GI) sepsis. Day #3 of Ertapenem. White cell count is down and no temperature. 6. Obstructive sleep apnea syndrome. The patient will use her own CPAP if able to achieve adequate saturations. 7. Gastroesophageal reflux disease. The patient is being given Protonix. 8. Deep vein thrombosis (DVT) prophylaxis being addressed with heparin. I have reviewed the case with general surgery at bedside and the bowel distention was quite extensive. Bowel recovery is expected to be slow. I have reviewed the case with the ICU nursing team. Cares of plan for the day have been updated. Her condition remains critical. ICU care remains appropriate. CRITICAL CARE TIME: 126 minutes was spent in the provision of bedside critical care and coordination, excluding any time for the performance of procedures.
--- NOTE | 2020-10-25 10:17 | CCN ---
CRITICAL CARE NOTE DATE: 10/25/2020 SUBJECTIVE: The patient is seen in the intensive care unit. This is hospital day #4, postop day #3. The patient rested reasonably well through the night on CPAP, but was unable to tolerate her home device. She is more alert and interactive this morning. OBJECTIVE: VITAL SIGNS: At bedside, her temperature is 96, pulse rate is 92, respirations 24, blood pressure 97/55. INTAKE AND OUTPUT: For the past 24 hours 336 in and 1420 out; since midnight 0 in and 430 out. GENERAL APPEARANCE: She is ill-appearing. HEENT: Mucosa is pink and somewhat dry. No stridor. No adenopathy in the neck. She does have an NG tube in the left naris at approximately 70 cm. HEART: Sounds are regular. LUNGS: Breath sounds diminished with coarse breath sounds, rales, and rhonchi appreciated today. She is not expectorating any secretions. ABDOMEN: Soft. No appreciable bowel sounds. EXTREMITIES: Cool. Pulses diminished. SKIN: The colostomy site appears clean. DIAGNOSTIC STUDIES: Her white cell count is down further today at 10.2, hemoglobin is down at 9.7, hematocrit 31.9, and platelet count 199,000. Differential white cell count shows 76% neutrophils. The electrolytes are sodium 143, potassium 3.9, chloride 110, CO2 of 32, BUN is 13, creatinine 0.65, glucose 82. The calcium is 8.9, phosphorus is up slightly at 2.2, AST 22, ALT 56. Her LDH is 226. CPK 414. Albumin 1.7. Arterial blood gases this morning showed a pH of 7.42, pCO2 of 45, pO2 of 96. This is on noninvasive ventilation. MEDICATIONS REVIEW: This is day #4 of Ertapenem. She is now receiving Solu-Medrol 40 mg a day, Symbicort, Spiriva, and DuoNebs q. 6 hours. ASSESSMENT AND PLAN: 1. The primary problem requiring critical attention is acute respiratory failure. We will attempt again to transition the patient to CPAP with supplemental oxygen. She does use CPAP for obstructive sleep apnea syndrome at home with supplemental oxygen bled through the system. 2. Hypophosphatemia. Phosphorus is still low. We will continue to replace and recheck the serum phosphate. 3. Chronic obstructive pulmonary disease. The patient's breath sounds are more rhonchorous today. I am concerned with secretion clearance and will initiate incentive spirometry. We will encourage her to be up out of bed. She is receiving long-acting corticosteroid and long-acting anticholinergic therapy in addition to short-acting nebulizers. Nonetheless, this represents risk for bronchopulmonary infection based on her underlying air flow obstruction and poor secretion clearance. 4. Gastrointestinal (GI) sepsis. This is day #4 of Ertapenem. White cell count is down and there has been no fever. Very few bowel sounds. Will defer on advancing diet to surgery. 5. Pain control, marginal. I am deferring to surgery on appropriate measures for pain control. 6. Gastroesophageal reflux disease. The patient is receiving Protonix. 7. Deep vein thrombosis (DVT) prophylaxis. The patient is receiving subcutaneous heparin and is being mobilized as best able. I have reviewed the patient's status with the ICU nursing team. Care plans for the day have been updated. She remains critically ill and ICU care is appropriate. CRITICAL CARE TIME: 62 minutes was spent in the provision of bedside critical care and coordination, excluding any time for the performance of procedures.
--- NOTE | 2020-10-25 13:10 | IPNPDOC ---
Text Note Date of Service The patient was seen on 10/25/20. NOTE Patient is POD3 after emergent ExLap, sigmoid colon resection for large bowel obstruction secondary to diverticular strictures (per pathology) She is extubated, on NC (slightly above baseline requirements, bipap at night) Abdomen remains tensely distended, tympanitic to percussion though ngt output has been diminished the past 24 hours Her ostomy is swollen but otherwise viable, not much air or stool yet. Midline incision is covered with prevena and looks to be working accordingly, not much drainage inside the canister mild LE edema Plans: will get KUB to gauge ngt placement (It is at 75 cms at the nostril), maybe coiled also to get a sense of which bowels are distended not ready to have ngt removed yet ok for ice chips for comfort ok for miralax bid continue abx watch urine output- trailing a bit VS,Fishbone, I+O VS, Fishbone, I+O Laboratory Tests 10/25/20 04:35 Vital Signs Date Time Temp Pulse Resp B/P (MAP) Pulse Ox O2 Delivery O2 Flow Rate FiO2 10/25/20 11:00 90 89 Nasal Cannula 6.0 10/25/20 10:00 110/53 (72) 10/25/20 09:33 20 10/25/20 09:23 40 10/25/20 08:00 97.0 I&O- Last 24 Hours up to 6 AM 10/25/20 06:00 Intake Total 336 ml Output Total 1330 ml Balance -994 ml KELLI STOLL MD October 25, 2020 13:10
[2020-10-25] MEDS: KETOROLAC 30 MG/ML 1ML VIAL IV PRN ×2 (13:50→20:05)
--- NOTE | 2020-10-25 13:52 | REP ---
INDICATION: postop, eval ngt level, abdominal distention. COMPARISON: Comparison radiograph 21 June 2020.. TECHNIQUE: Two views, supine abdomen. FINDINGS: There is a left flank enterostomy ring. A surgical drain is noted in the right lower abdomen. Paramidline laparotomy henry are seen. A nasogastric tube is seen looped within the gastric fundus. There are clips in right upper quadrant. There is mild gaseous distention of the transverse colon and an adjacent loop of small bowel in the upper abdomen question focal ileus. IMPRESSION: NG tube in the gastric fundus. Postoperative changes. Mild ileus. <Electronically signed by Tenzin Ramírez > 10/25/20 [id number]
[2020-10-25] MEDS ORDERED: POTASSIUM PHOSPHATE INJ 20 MMOL in D5W 250 ML IV ONE (17:00)
[2020-10-25] MEDS: ERTAPENEM SODIUM 1 GM in NS MINI-BAG PLUS 50 ML IV SCH (20:05)
[2020-10-25] MEDS: LEVEMIR (INSULIN DETEMIR) 1 UNITS/0.01ML SC SCH (20:09)
[2020-10-26] VITALS (7 sets, daily range): BP systolic 96–160; BP diastolic 58–81
[2020-10-26] MEDS: HumaLOG INSULIN (NovoLOG) PER UNIT SC SCH ×4 (00:16→18:00)
[2020-10-26] MEDS: HEPARIN SOD (PORCINE) 5000UNITS/ML 1ML VIAL/SYRINGE SQ SCH ×3 (00:16→17:05)
[2020-10-26] MEDS: IPRATROPIUM 0.5MG/ALBUTEROL 2.5MG INH SOL UD 3ML (DUONEB) NEB SCH ×4 (01:21→20:03)
[2020-10-26] MEDS: KETOROLAC 30 MG/ML 1ML VIAL IV PRN ×3 (02:08→17:05)
[2020-10-26] MEDS: MORPHINE 2 MG/ML 1ML VIAL (J2270) IV PRN ×5 (02:08→23:05)
[2020-10-26 05:59] LABS: HEMATOCRIT 31.1 % (36.0-47.0); HEMOGLOBIN 9.6 g/dl (12.0-15.5); MEAN CORPUSCULAR HEMOGLOBIN 28.7 pg (27.0-33.0); MEAN CORPUSCULAR HGB CONC 30.9 g/dl (32.0-36.5); MEAN CORPUSCULAR VOLUME 92.8 fl (80.0-96.0); PLATELET COUNT, AUTOMATED 225 10^3/uL (150-450); RED BLOOD COUNT 3.35 10^6/uL (4.00-5.40); WHITE BLOOD COUNT 9.8 10^3/uL (4.0-10.0)
[2020-10-26 06:27] LABS: ALBUMIN 1.8 GM/DL (3.2-5.2); ALT/SGPT 47 U/L (12-78); BILIRUBIN,TOTAL 0.3 MG/DL (0.2-1.0); BLOOD UREA NITROGEN 21 MG/DL (7-18); CALCIUM LEVEL 8.5 MG/DL (8.8-10.2); CARBON DIOXIDE LEVEL 29 MEQ/L (21-32); CHLORIDE LEVEL 108 MEQ/L (98-107); CHOLESTEROL LEVEL 145 MG/DL (< 200); CPK CREATINE PHOSPHOKINASE 230 U/L (26-192); CREATININE FOR GFR 0.72 MG/DL (0.55-1.30); GLOMERULAR FILTRATION RATE > 60.0 (>45); GLUCOSE, FASTING 113 MG/DL (70-100); LDH LACTATE DEHYDROGENASE 236 U/L (84-246); PHOSPHORUS LEVEL 3.6 MG/DL (2.5-4.9); POTASSIUM SERUM 4.4 MEQ/L (3.5-5.1); SODIUM LEVEL 141 MEQ/L (136-145); TOTAL PROTEIN 5.9 GM/DL (6.4-8.2); TRIGLYCERIDES LEVEL 210 MG/DL (<150)
[2020-10-26 06:32] LABS: ATYPICAL LYMPH 2 % (0-5); LYMPHOCYTES 14 % (16-44); MONOCYTES 3 % (0-5); MYELOCYTES 1 % (0-0); NEUTROPHILS 74 % (28-66)
[2020-10-26 06:33] LABS: ANISOCYTOSIS 1+; PLATELET ESTIMATE NORMAL (NORMAL); POIKILOCYTOSIS 1+
[2020-10-26] MEDS: TIOTROPIUM INHALER/CAPSULE (SPIRIVA) INH SCH (07:27)
[2020-10-26] MEDS: SYMBICORT 160/4.5MCG INHALER 6GM INH SCH ×2 (07:28→20:03)
--- NOTE | 2020-10-26 07:53 | IPNPDOC ---
Text Note Date of Service The patient was seen on 10/26/20. NOTE Patient seen and examined today she looks a lot more comfortable, her voice a lot stronger and her pacing of her words a lot less labored. She seems to be back to baseline in terms of her respiratory status. Still no consistent output from the colostomy though her abdomen looks a little bit less distended this morning. She denies any nausea. She is complaining of throat pain from the nasogastric tube. NG tube output 500 yesterday 350 overnight Urine output 780 yesterday 120 overnight Patient looks a lot more comfortable today seems to be back to her baseline in terms of breathing She is on a nasal cannula at 3 L. Lung sounds are clear Non-tachycardic Abdomen is obese, very protuberant rounded specially in the upper abdomen. Seems to be slightly less distended than yesterday, still tympanitic, still hypoactive bowel sounds. She has a left-sided ostomy that is swollen but viable with no new gas or stool output. Midline incision seems to be intact a very faint staining at the bottom off the incision. The pervenous stopped working yesterday and this was discontinued MADELINE drain is serous Mild lower extremity edema Impression and plan She has now postop day 5 after exploratory laparotomy for sigmoid colon obstruction, status post sigmoid colon resection, Rawls's pouch and ostomy Pathology shows diverticulitis I will discontinue the nasogastric tube as it has trailed down for the past 3 days or so. Still keep her nothing by mouth with only ice chips. I told her she can have some flavored ice pops to make her feel more comfortable but otherwise I don't think she is ready yet for full oral intake. Her ostomy is not fully functioning yet. There is some ileus noted on the x-ray yesterday. I will give her some daily doses of Lasix to remove some of the fluid that was given to her when she was sick PT and OT DVT prophylaxis Will keep the Rojas today, she is mainly bedridden and I expect a brisk diuresis VS,Fishbone, I+O VS, Fishbone, I+O Laboratory Tests 10/26/20 05:21 Vital Signs Date Time Temp Pulse Resp B/P (MAP) Pulse Ox O2 Delivery O2 Flow Rate FiO2 10/26/20 07:22 2.0 10/26/20 06:00 20 10/26/20 04:00 97.5 79 132/77 (95) 99 NIPPV (BIPAP/CPAP) 10/25/20 09:23 40 I&O- Last 24 Hours up to 6 AM 10/26/20 06:00 Intake Total 200 ml Output Total 1380 ml Balance -1180 ml KELLI STOLL MD October 26, 2020 07:53
[2020-10-26] MEDS: PANTOPRAZOLE 40MG VIAL (C9113 PER 1) IV SCH (08:39)
[2020-10-26] MEDS: methylPREDNISolone 40MG 1ML VIAL IV SCH (08:39)
[2020-10-26] MEDS: MIRALAX *UNIT DOSE* 17GM PACKET PO SCH ×2 (08:40→20:56)
[2020-10-26] MEDS ORDERED: FUROSEMIDE 40MG/4ML VIAL (J1940) IV SCH (09:00)
--- NOTE | 2020-10-26 11:13 | IPNPDOC ---
Subjective Date Seen The patient was seen on 10/26/20. Subjective Chief Complaint/HPI Rossana is in good spirits this morning. She reports her pain is controlled overall she reports doing well. She having some small amounts of ostomy output Objective Physical Examination General Exam: Positive: Alert, Cooperative, No Acute Distress, Other (intubated, medical coma) Eye Exam: Positive: Conjunctiva & lids normal ENT Exam: Positive: Mucous membr. moist/pink Neck Exam: Positive: Supple, Other (RIJ in place); Negative: JVD, thyromegaly Chest Exam: Positive: Clear to auscultation, Normal air movement Heart Exam: Positive: Rate Normal, Regular Rhythm, Normal S1, Normal S2; Negative: Murmurs, Rubs Abdomen Exam: Positive: BS Hypoactive, Tenderness (at incisional site), Other (wound vac in place, ostomy with minimal fecal drainage) Extremity Exam: Positive: Normal pulses; Negative: Edema Assessment /Plan Assessment # Large bowel obstruction with bowel necrosis s/p ex-lap with colectomy and ostomy formation - mgmt per general surgery. POD # 2 s/p sigmoid colectomy with ostomy - continue Invanz day # 4 - cultures are negative so far - ok to remove TLC line - discontinue allison in am # Chronic obstructive pulmonary disease (COPD) with suspected Cor pulmonale, # Chronic tobacco use # Acute respiratory failure on ventilator s/p self extubation - stable on nc ,wean as tolerated, IS - continue nebs, and budesonide # Hypotension - resolved - weaning off stress dose steroids # Diabetes type 2 - Sliding scale insulin coverage # Chronic diastolic CHF - stable # DVT and GI ppx - SCDs + hep sq - protonix Plan/VTE VTE Prophylaxis Ordered?: No VTE Exclusion Pharmacological: Other (surgery) VS, I&O, 24H, Fishbone Vital Signs/I&O Vital Signs Date Time Temp Pulse Resp B/P (MAP) Pulse Ox O2 Delivery O2 Flow Rate FiO2 10/26/20 08:00 97.4 79 19 129/74 (92) 96 Nasal Cannula 6.0 10/25/20 09:23 40 I&O- Last 24 Hours up to 6 AM 10/26/20 06:00 Intake Total 200 ml Output Total 1380 ml Balance -1180 ml Laboratory Data 24H LABS Laboratory Tests 2 10/25/20 12:24: Bedside Glucose (Misc Panel) 116H 10/25/20 20:08: Bedside Glucose (Misc Panel) 160H 10/26/20 00:12: Bedside Glucose (Misc Panel) 132H 10/26/20 05:21: Immature Granulocyte % (Auto) , Neutrophils (%) (Auto) , Nucleated Red Blood Cells % (auto) 0.2H, Neutrophils 74H, Band Neutrophils 6, Lymphocytes (Manual) 14L, Monocytes (Manual) 3, Myelocytes 1H, Atypical Lymphocytes 2, Poikilocytosis 1+, Anisocytosis 1+, Platelet Estimate NORMAL, Anion Gap 4L, Glomerular Filtration Rate > 60.0, Calcium Level 8.5L, Phosphorus Level 3.6#, Total Bilirubin 0.3, Aspartate Amino Transf (AST/SGOT) 16, Alanine Aminotransferase (ALT/SGPT) 47, Alkaline Phosphatase 82, Lactate Dehydrogenase 236, Total Creatine Kinase 230H, Total Protein 5.9L, Albumin 1.8L, Albumin/Globulin Ratio 0.4L, Triglycerides Level 210H, Cholesterol Level 145 10/26/20 05:43: Bedside Glucose (Misc Panel) 116H CBC/BMP Laboratory Tests 10/26/20 05:21 Microbiology Microbiology 10/22/20 Blood Culture - Preliminary, Resulted No Growth after 72 hours. All specime... 10/22/20 Blood Culture - Preliminary, Resulted No Growth after 72 hours. All specime... 10/20/20 Urine Culture - Final, Complete 10/20/20 Blood Culture - Final, Complete NO GROWTH AFTER 5 DAYS 10/20/20 Respiratory Virus Panel (PCR) ([facility]) - Final, Complete 10/20/20 Blood Culture - Final, Complete NO GROWTH AFTER 5 DAYS SAROJ NAZARIO MD October 26, 2020 10:56
[2020-10-26] MEDS: LEVEMIR (INSULIN DETEMIR) 1 UNITS/0.01ML SC SCH (20:57)
[2020-10-26] MEDS: ERTAPENEM SODIUM 1 GM in NS MINI-BAG PLUS 50 ML IV SCH (21:53)
[2020-10-27] VITALS (8 sets, daily range): BP systolic 122–150; BP diastolic 59–78
[2020-10-27] MEDS: HEPARIN SOD (PORCINE) 5000UNITS/ML 1ML VIAL/SYRINGE SQ SCH ×3 (00:27→15:43)
[2020-10-27] MEDS: KETOROLAC 30 MG/ML 1ML VIAL IV PRN ×2 (00:28→09:55)
[2020-10-27] MEDS: MORPHINE 2 MG/ML 1ML VIAL (J2270) IV PRN ×8 (00:28→20:57)
[2020-10-27] MEDS: IPRATROPIUM 0.5MG/ALBUTEROL 2.5MG INH SOL UD 3ML (DUONEB) NEB SCH ×4 (01:07→20:13)
[2020-10-27 06:00] LABS: HEMOGLOBIN 9.9 g/dl (12.0-15.5); MEAN CORPUSCULAR HEMOGLOBIN 28.3 pg (27.0-33.0); MEAN CORPUSCULAR HGB CONC 30.9 g/dl (32.0-36.5); MEAN CORPUSCULAR VOLUME 91.4 fl (80.0-96.0); PLATELET COUNT, AUTOMATED 270 10^3/uL (150-450); WHITE BLOOD COUNT 10.8 10^3/uL (4.0-10.0)
[2020-10-27] MEDS: HumaLOG INSULIN (NovoLOG) PER UNIT SC SCH ×5 (06:00→23:52)
[2020-10-27 06:27] LABS: LYMPHOCYTES 21 % (16-44); METAMYELOCYTES 1 % (0-0); MONOCYTES 7 % (0-5); MYELOCYTES 2 % (0-0); NEUTROPHILS 66 % (28-66); PLATELET ESTIMATE NORMAL (NORMAL)
[2020-10-27 06:28] LABS: ALT/SGPT 41 U/L (12-78); BILIRUBIN,TOTAL 0.2 MG/DL (0.2-1.0); BLOOD UREA NITROGEN 25 MG/DL (7-18); CALCIUM LEVEL 9.1 MG/DL (8.8-10.2); CARBON DIOXIDE LEVEL 34 MEQ/L (21-32); CHLORIDE LEVEL 108 MEQ/L (98-107); CHOLESTEROL LEVEL 169 MG/DL (< 200); CPK CREATINE PHOSPHOKINASE 148 U/L (26-192); CREATININE FOR GFR 0.86 MG/DL (0.55-1.30); GLOMERULAR FILTRATION RATE > 60.0 (>45); GLUCOSE, FASTING 99 MG/DL (70-100); LDH LACTATE DEHYDROGENASE 262 U/L (84-246); PHOSPHORUS LEVEL 3.5 MG/DL (2.5-4.9); POLYCHROMASIA 1+; SODIUM LEVEL 146 MEQ/L (136-145); TOTAL PROTEIN 5.3 GM/DL (6.4-8.2); TRIGLYCERIDES LEVEL 273 MG/DL (<150)
[2020-10-27 06:29] LABS: GIANT PLATELETS 1+
[2020-10-27] MEDS: SYMBICORT 160/4.5MCG INHALER 6GM INH SCH ×2 (07:33→20:12)
[2020-10-27] MEDS: TIOTROPIUM INHALER/CAPSULE (SPIRIVA) INH SCH (07:34)
[2020-10-27] MEDS: PANTOPRAZOLE 40MG VIAL (C9113 PER 1) IV SCH (09:43)
[2020-10-27] MEDS: methylPREDNISolone 40MG 1ML VIAL IV SCH (09:43)
[2020-10-27] MEDS: MIRALAX *UNIT DOSE* 17GM PACKET PO SCH ×2 (09:43→20:57)
[2020-10-27] MEDS: SIMETHICONE 80MG CHEW TAB PO SCH ×2 (09:44→13:09)
[2020-10-27] MEDS: ALVIMOPAN 12 MG CAPSULE (ENTEREG) PO SCH ×2 (09:44→20:58)
--- NOTE | 2020-10-27 10:47 | IPNPDOC ---
Subjective Date Seen The patient was seen on 10/27/20. Subjective Chief Complaint/HPI Rossana is more distended this morning following removal of her NG tube. She did have some bilious vomiting when the nurse attempted to give her stool softeners. Her oxygen requirements remain at 5 L nasal cannula Objective Physical Examination General Exam: Positive: Mild Distress Eye Exam: Positive: Conjunctiva & lids normal ENT Exam: Positive: Mucous membr. moist/pink Neck Exam: Positive: Supple; Negative: JVD, thyromegaly Chest Exam: Positive: Clear to auscultation, Normal air movement Heart Exam: Positive: Rate Normal, Regular Rhythm, Normal S1, Normal S2; Negative: Murmurs, Rubs Telemetry: Positive: No significant arrhythmia Abdomen Exam: Positive: BS Hypoactive, Tenderness (at incisional site), Other (wound vac in place, ostomy with minimal fecal drainage or gas, abdomen is significant distended this morning) Extremity Exam: Positive: Normal pulses; Negative: Edema Skin Exam: Negative: Rash Psych Exam: Positive: Mental status NL Assessment /Plan Assessment # Large bowel obstruction with bowel necrosis s/p ex-lap with colectomy and ostomy formation - mgmt per general surgery. POD # 2 s/p sigmoid colectomy with ostomy - continue Invanz day # 5 - cultures remain negative so far Place NG tube secondary to postoperative ileus - discontinue allison # Chronic obstructive pulmonary disease (COPD) with suspected Cor pulmonale, # Chronic tobacco use # Acute respiratory failure on ventilator s/p self extubation - stable on nc ,wean as tolerated, IS - continue nebs, and budesonide # Hypotension - resolved - weaning off stress dose steroids # Diabetes type 2 - Sliding scale insulin coverage # Chronic diastolic CHF - stable Can't hold IV Lasix # DVT and GI ppx - SCDs + hep sq - protonix Plan/VTE VTE Prophylaxis Ordered?: Yes VTE Exclusion Pharmacological: Other (surgery) VS, I&O, 24H, Fishbone Vital Signs/I&O Vital Signs Date Time Temp Pulse Resp B/P (MAP) Pulse Ox O2 Delivery O2 Flow Rate FiO2 10/27/20 08:10 95 NIPPV (BIPAP/CPAP) 8.0 10/27/20 08:01 18 10/27/20 08:00 96.4 77 140/68 (92) 10/25/20 09:23 40 I&O- Last 24 Hours up to 6 AM 10/27/20 06:00 Intake Total 940 ml Output Total 1858 ml Balance -918 ml Laboratory Data 24H LABS Laboratory Tests 2 10/26/20 12:53: Bedside Glucose (Misc Panel) 185H 10/26/20 17:08: Bedside Glucose (Misc Panel) 176H 10/27/20 00:20: Bedside Glucose (Misc Panel) 138H 10/27/20 05:46: Immature Granulocyte % (Auto) , Neutrophils (%) (Auto) , Nucleated Red Blood Cells % (auto) 0.0, Neutrophils 66, Band Neutrophils 3, Lymphocytes (Manual) 21, Monocytes (Manual) 7H, Metamyelocytes 1H, Myelocytes 2H, Polychromasia 1+, Giant Platelets 1+, Platelet Estimate NORMAL, Anion Gap 4L, Glomerular Filtration Rate > 60.0, Calcium Level 9.1, Phosphorus Level 3.5, Total Bilirubin 0.2, Aspartate Amino Transf (AST/SGOT) 18, Alanine Aminotransferase (ALT/SGPT) 41, Alkaline Phosphatase 83, Lactate Dehydrogenase 262H, Total Creatine Kinase 148, Total Protein 5.3L, Albumin 2.0L, Albumin/Globulin Ratio 0.6L, Triglycerides Level 273H, Cholesterol Level 169 CBC/BMP Laboratory Tests 10/27/20 05:46 Microbiology Microbiology 10/22/20 Blood Culture - Final, Complete NO GROWTH AFTER 5 DAYS 10/22/20 Blood Culture - Final, Complete NO GROWTH AFTER 5 DAYS 10/20/20 Urine Culture - Final, Complete 10/20/20 Blood Culture - Final, Complete NO GROWTH AFTER 5 DAYS 10/20/20 Respiratory Virus Panel (PCR) ([facility]) - Final, Complete 10/20/20 Blood Culture - Final, Complete NO GROWTH AFTER 5 DAYS SAROJ NAZARIO MD October 27, 2020 10:47
[2020-10-27] MEDS: ERTAPENEM SODIUM 1 GM in NS MINI-BAG PLUS 50 ML IV SCH (20:57)
[2020-10-27] MEDS: LEVEMIR (INSULIN DETEMIR) 1 UNITS/0.01ML SC SCH (20:58)
[2020-10-27] MEDS: SIMETHICONE 40MG/0.6ML DROPS 30ML PO SCH (20:59)
[2020-10-28] VITALS: BP 138/69
[2020-10-28] MEDS: HEPARIN SOD (PORCINE) 5000UNITS/ML 1ML VIAL/SYRINGE SQ SCH ×3 (00:01→15:02)
[2020-10-28] MEDS: IPRATROPIUM 0.5MG/ALBUTEROL 2.5MG INH SOL UD 3ML (DUONEB) NEB SCH ×4 (02:07→19:16)
[2020-10-28] MEDS: MORPHINE 2 MG/ML 1ML VIAL (J2270) IV PRN ×4 (02:48→17:26)
[2020-10-28 04:00] VITALS: BP 131/68
[2020-10-28 05:51] LABS: BASO # 0.1 10^3/uL (0.0-0.2); BASO % 0.7 % (0.0-1.0); EOS % 0.3 % (0.0-3.0); HEMATOCRIT 34.9 % (36.0-47.0); HEMOGLOBIN 10.8 g/dl (12.0-15.5); LYMPH # 1.9 10^3/uL (1.5-5.0); LYMPH % 16.2 % (24.0-44.0); MEAN CORPUSCULAR HEMOGLOBIN 28.6 pg (27.0-33.0); MEAN CORPUSCULAR HGB CONC 30.9 g/dl (32.0-36.5); MEAN CORPUSCULAR VOLUME 92.6 fl (80.0-96.0); MONO # 0.7 10^3/uL (0.0-0.8); MONO % 6.1 % (2.0-8.0); NEUTROPHILS # 8.3 10^3/uL (1.5-8.5); NEUTROPHILS % 72.4 % (36.0-66.0); PLATELET COUNT, AUTOMATED 304 10^3/uL (150-450); RED BLOOD COUNT 3.77 10^6/uL (4.00-5.40); WHITE BLOOD COUNT 11.5 10^3/uL (4.0-10.0)
[2020-10-28] MEDS: HumaLOG INSULIN (NovoLOG) PER UNIT SC SCH ×3 (06:00→18:00)
[2020-10-28 06:31] LABS: ALBUMIN 2.2 GM/DL (3.2-5.2); ALT/SGPT 47 U/L (12-78); BILIRUBIN,TOTAL 0.3 MG/DL (0.2-1.0); BLOOD UREA NITROGEN 22 MG/DL (7-18); CALCIUM LEVEL 9.6 MG/DL (8.8-10.2); CARBON DIOXIDE LEVEL 32 MEQ/L (21-32); CHLORIDE LEVEL 108 MEQ/L (98-107); GLOMERULAR FILTRATION RATE > 60.0 (>45); GLUCOSE, FASTING 76 MG/DL (70-100); MAGNESIUM LEVEL 2.6 MG/DL (1.8-2.4); POTASSIUM SERUM 3.8 MEQ/L (3.5-5.1); SODIUM LEVEL 147 MEQ/L (136-145); TOTAL PROTEIN 5.5 GM/DL (6.4-8.2)
[2020-10-28 08:00] VITALS: BP 132/63
[2020-10-28] MEDS: SYMBICORT 160/4.5MCG INHALER 6GM INH SCH ×2 (08:28→19:16)
[2020-10-28] MEDS: TIOTROPIUM INHALER/CAPSULE (SPIRIVA) INH SCH (08:29)
[2020-10-28] MEDS: ALVIMOPAN 12 MG CAPSULE (ENTEREG) PO SCH ×2 (08:35→20:14)
[2020-10-28] MEDS: methylPREDNISolone 40MG 1ML VIAL IV SCH (08:35)
[2020-10-28] MEDS: SIMETHICONE 40MG/0.6ML DROPS 30ML PO SCH ×4 (08:35→20:23)
[2020-10-28] MEDS: PANTOPRAZOLE 40MG VIAL (C9113 PER 1) IV SCH (08:35)
[2020-10-28] MEDS: MIRALAX *UNIT DOSE* 17GM PACKET PO SCH ×2 (09:00→20:16)
[2020-10-28] MEDS: KETOROLAC 30 MG/ML 1ML VIAL IV PRN ×2 (11:37→20:16)
[2020-10-28 12:00] VITALS: BP 141/71
[2020-10-28 16:00] VITALS: BP 115/69
--- NOTE | 2020-10-28 17:51 | IPNPDOC ---
Subjective Date Seen The patient was seen on 10/28/20. Subjective Chief Complaint/HPI Mrs. Tracy is a 65 year old female with COPD, pulmonary hypertension, and recurrent diverticulitis who presents with large bowel obstruction with bowel necrosis s/p colectomy and ostomy 10/22/20. She was seen in the morning with NGT. At that time, she did not have much output from ostomy bag, but she does have a lot of output from the NGT. Objective Physical Examination General Exam: Positive: Alert, Cooperative Eye Exam: Negative: Sclera icteric ENT Exam: Positive: Atraumatic Neck Exam: Positive: Supple Chest Exam: Positive: Clear to auscultation, Normal air movement Heart Exam: Positive: Rate Normal, Regular Rhythm, Normal S1, Normal S2 Telemetry: Positive: No significant arrhythmia Abdomen Exam: Positive: BS Hypoactive, Tenderness (at incisional site) Neuro Exam: Positive: Normal Speech Psych Exam: Positive: Mental status NL Assessment /Plan Assessment Mrs. Tracy is a 65 year old female with COPD, pulmonary hypertension, and recurrent diverticulitis who presents with large bowel obstruction with bowel necrosis s/p colectomy and ostomy 10/22/20. General surgery following, recommendations appreciated. Patient this morning, continues with NGT. Patient is on Invanz for necrotic bowel. Plan/VTE VTE Prophylaxis Ordered?: Yes VTE Exclusion Pharmacological: Other (surgery) Plan 1. Large bowel obstruction with bowel necrosis s/p colectomy and ostomy formation -Patient still has post op ileus -Continues with NGT and Entereg -There was necrotic bowel, patient is on Invanz day 6 2. COPD -After surgery, patient was kept on ventilator. Patient self extubated -Currently stable, not in acute exacerbation -Continue duonebs, Symbicort, and Tiotropium 3. Hypotension -Resolved -Weaning off steroids 4. Diabetes mellitus type 2 -Sliding scale insulin 5. Chronic diastolic CHF -Not in exacerbation/decompensation -Monitor 6. DVT ppx -Heparin subQ Disposition: Pending clinical improvement VS, I&O, 24H, Fishbone Vital Signs/I&O Vital Signs Date Time Temp Pulse Resp B/P (MAP) Pulse Ox O2 Delivery O2 Flow Rate FiO2 10/28/20 15:01 20 10/28/20 12:00 96.6 87 141/71 (94) 90 High Flow Cannula 5.0 10/25/20 09:23 40 I&O- Last 24 Hours up to 6 AM 10/28/20 06:00 Intake Total 680 ml Output Total 3620 ml Balance -2940 ml Laboratory Data 24H LABS Laboratory Tests 2 10/27/20 18:07: Bedside Glucose (Misc Panel) 157H 10/27/20 23:49: Bedside Glucose (Misc Panel) 96 10/28/20 05:39: Immature Granulocyte % (Auto) 4.3H, Neutrophils (%) (Auto) 72.4H, Lymphocytes (% ) (Auto) 16.2L, Monocytes (%) (Auto) 6.1, Eosinophils (%) (Auto) 0.3, Basophils (%) (Auto) 0.7, Neutrophils # (Auto) 8.3, Lymphocytes # (Auto) 1.9, Monocytes # (Auto) 0.7, Eosinophils # (Auto) 0.0, Basophils # (Auto) 0.1, Nucleated Red Blood Cells % (auto) 0.0, Anion Gap 7L, Glomerular Filtration Rate > 60.0, Calcium Level 9.6, Magnesium Level 2.6H, Total Bilirubin 0.3, Aspartate Amino Transf (AST/SGOT) 25, Alanine Aminotransferase (ALT/SGPT) 47, Alkaline Phosphatase 85, Total Protein 5.5L, Albumin 2.2L, Albumin/Globulin Ratio 0.7L 10/28/20 05:54: Bedside Glucose (Misc Panel) 79L 10/28/20 11:38: Bedside Glucose (Misc Panel) 143H CBC/BMP Laboratory Tests 10/28/20 05:39 Microbiology Microbiology 10/22/20 Blood Culture - Final, Complete NO GROWTH AFTER 5 DAYS 10/22/20 Blood Culture - Final, Complete NO GROWTH AFTER 5 DAYS 10/20/20 Urine Culture - Final, Complete 10/20/20 Blood Culture - Final, Complete NO GROWTH AFTER 5 DAYS 10/20/20 Respiratory Virus Panel (PCR) ([facility]) - Final, Complete 10/20/20 Blood Culture - Final, Complete NO GROWTH AFTER 5 DAYS ALEXSANDER VALDEZ DO October 28, 2020 16:01
[2020-10-28 20:00] VITALS: BP 139/76
[2020-10-28] MEDS: LEVEMIR (INSULIN DETEMIR) 1 UNITS/0.01ML SC SCH (20:15)
[2020-10-28] MEDS: ERTAPENEM SODIUM 1 GM in NS MINI-BAG PLUS 50 ML IV SCH (20:16)
--- NOTE | 2020-10-28 22:35 | IPN ---
PROGRESS NOTE DATE: 10/28/2020 SUBJECTIVE: The patient had an NG tube reinserted yesterday for her postoperative ileus which makes sense that she has a prolonged ileus, given the amount of inflammatory changes intra-abdominally. She has been afebrile fortunately, and her NG tube however put out a significant amount of bilious output overnight and continues to put out a fair bit. Her Oc-Alegre drain is clearing up nicely and her ostomy unfortunately is not really putting out much, although it does look pink and viable and otherwise her abdomen is benign and soft. IMPRESSION AND PLAN: The patient has a postoperative ileus. It is a prolonged ileus at this time unfortunately, but does fit relatively well given her amount of sepsis and operative intervention that she required. 1. In any case at this point my recommendation is that we continue supportive care. 2. Keep her n.p.o., NG tube in place. 3. However, if she does not start to decrease the NG tube output over the ensuing 24-48 hours, we might to consider starting her up on some TPN.
[2020-10-29] VITALS: BP 108/67
[2020-10-29] MEDS: HEPARIN SOD (PORCINE) 5000UNITS/ML 1ML VIAL/SYRINGE SQ SCH ×4 (00:20→23:18)
[2020-10-29] MEDS: MORPHINE 2 MG/ML 1ML VIAL (J2270) IV PRN ×10 (00:22→23:19)
[2020-10-29 04:00] VITALS: BP 128/66
[2020-10-29] MEDS: HumaLOG INSULIN (NovoLOG) PER UNIT SC SCH ×5 (04:55→23:20)
[2020-10-29 05:39] LABS: HEMATOCRIT 36.7 % (36.0-47.0); HEMOGLOBIN 11.1 g/dl (12.0-15.5); MEAN CORPUSCULAR HEMOGLOBIN 27.8 pg (27.0-33.0); MEAN CORPUSCULAR HGB CONC 30.2 g/dl (32.0-36.5); PLATELET COUNT, AUTOMATED 317 10^3/uL (150-450); RED BLOOD COUNT 3.99 10^6/uL (4.00-5.40); WHITE BLOOD COUNT 11.6 10^3/uL (4.0-10.0)
[2020-10-29 06:04] LABS: BLOOD UREA NITROGEN 26 MG/DL (7-18); CALCIUM LEVEL 9.3 MG/DL (8.8-10.2); CARBON DIOXIDE LEVEL 34 MEQ/L (21-32); CHLORIDE LEVEL 109 MEQ/L (98-107); CREATININE FOR GFR 0.94 MG/DL (0.55-1.30); GLOMERULAR FILTRATION RATE > 60.0 (>45); GLUCOSE, FASTING 82 MG/DL (70-100); POTASSIUM SERUM 3.6 MEQ/L (3.5-5.1); SODIUM LEVEL 149 MEQ/L (136-145)
[2020-10-29] MEDS: SYMBICORT 160/4.5MCG INHALER 6GM INH SCH ×2 (07:23→19:53)
[2020-10-29] MEDS: TIOTROPIUM INHALER/CAPSULE (SPIRIVA) INH SCH (07:23)
[2020-10-29] MEDS: IPRATROPIUM 0.5MG/ALBUTEROL 2.5MG INH SOL UD 3ML (DUONEB) NEB SCH ×2 (07:24→19:53)
[2020-10-29 08:00] VITALS: BP 116/59
[2020-10-29] MEDS: D5W/0.45% SODIUM CHLORIDE 1,000 ML IV SCH ×2 (08:32→21:44)
[2020-10-29] MEDS: methylPREDNISolone 40MG 1ML VIAL IV SCH (08:33)
[2020-10-29] MEDS: PANTOPRAZOLE 40MG VIAL (C9113 PER 1) IV SCH (08:34)
[2020-10-29] MEDS: MIRALAX *UNIT DOSE* 17GM PACKET PO SCH ×2 (08:34→20:50)
[2020-10-29] MEDS: ALVIMOPAN 12 MG CAPSULE (ENTEREG) PO SCH ×2 (08:34→20:46)
[2020-10-29] MEDS: SIMETHICONE 40MG/0.6ML DROPS 30ML PO SCH ×4 (08:34→20:47)
--- NOTE | 2020-10-29 10:08 | IPNPDOC ---
Subjective Date Seen The patient was seen on 10/29/20. Subjective Chief Complaint/HPI Mrs. Tracy is a 65 year old female with COPD, pulmonary hypertension, and recurrent diverticulitis who presents with large bowel obstruction with bowel necrosis s/p colectomy and ostomy 10/22/20. Yesterday, she was able to ambulate with physical therapy. She passed gas as well. Otherwise, she still has a lot of output from her NGT. Yesterday, she had 2450mL. This morning, she had 1100mL. Otherwise, denies chest pain or dyspnea. Still has decreased bowel sounds this morning. Objective Physical Examination General Exam: Positive: Alert, Cooperative Eye Exam: Negative: Sclera icteric ENT Exam: Positive: Atraumatic Neck Exam: Positive: Supple Chest Exam: Positive: Clear to auscultation, Normal air movement Heart Exam: Positive: Rate Normal, Regular Rhythm, Normal S1, Normal S2 Telemetry: Positive: No significant arrhythmia Abdomen Exam: Positive: BS Hypoactive, Tenderness (at incisional site) Neuro Exam: Positive: Normal Speech Psych Exam: Positive: Mental status NL Assessment /Plan Assessment Mrs. Tracy is a 65 year old female with COPD, pulmonary hypertension, and recurrent diverticulitis who presents with large bowel obstruction with bowel necrosis s/p colectomy and ostomy 10/22/20. General surgery following, recommendations appreciated. This morning, patient continues with NGT. Still still has a lot of output from ther NGT. Otherwise, patient is on Invanz for necrotic bowel Plan/VTE VTE Prophylaxis Ordered?: Yes VTE Exclusion Pharmacological: Other (surgery) Plan 1. Large bowel obstruction with bowel necrosis s/p colectomy and ostomy formation -Patient still has post op ileus -Continues with NGT and Entereg -There was necrotic bowel, patient is on Invanz day 7 2. COPD -After surgery, patient was kept on ventilator. Patient self extubated -Currently stable, not in acute exacerbation -Continue duonebs, Symbicort, and Tiotropium 3. Hypotension -Resolved -Weaning off steroids 4. Diabetes mellitus type 2 -Sliding scale insulin 5. Chronic diastolic CHF -Not in exacerbation/decompensation -Monitor 6. DVT ppx -Heparin subQ Disposition: Pending clinical improvement. Still has a lot of output from NGT. VS, I&O, 24H, Fishbone Vital Signs/I&O Vital Signs Date Time Temp Pulse Resp B/P (MAP) Pulse Ox O2 Delivery O2 Flow Rate FiO2 10/29/20 08:33 20 Nasal Cannula 5.0 10/29/20 04:00 96.6 80 128/66 (86) 90 10/25/20 09:23 40 I&O- Last 24 Hours up to 6 AM 10/29/20 06:00 Intake Total 820 ml Output Total 2260 ml Balance -1440 ml Laboratory Data 24H LABS Laboratory Tests 2 10/28/20 11:38: Bedside Glucose (Misc Panel) 143H 10/28/20 17:41: Bedside Glucose (Misc Panel) 137H 10/29/20 00:09: Bedside Glucose (Misc Panel) 83 10/29/20 04:53: Bedside Glucose (Misc Panel) 77L 10/29/20 05:24: Nucleated Red Blood Cells % (auto) 0.0, Anion Gap 6L, Glomerular Filtration Rate > 60.0, Calcium Level 9.3 CBC/BMP Laboratory Tests 10/29/20 05:24 Microbiology Microbiology 10/22/20 Blood Culture - Final, Complete NO GROWTH AFTER 5 DAYS 10/22/20 Blood Culture - Final, Complete NO GROWTH AFTER 5 DAYS 10/20/20 Urine Culture - Final, Complete 10/20/20 Blood Culture - Final, Complete NO GROWTH AFTER 5 DAYS 10/20/20 Respiratory Virus Panel (PCR) ([facility]) - Final, Complete 10/20/20 Blood Culture - Final, Complete NO GROWTH AFTER 5 DAYS ALEXSANDER VALDEZ DO October 29, 2020 10:08
[2020-10-29 12:00] VITALS: BP 109/63
--- NOTE | 2020-10-29 12:14 | CCN ---
CRITICAL CARE NOTE DATE: 10/24/2020 SUBJECTIVE: The patient is seen in the intensive care unit. This is hospital day #2, postop day #2 from laparoscopic bowel resection, and day #2 of right internal jugular venous access. Over the past 24 hours, the patient self-extubated and was moved to a noninvasive ventilation. She is awake and alert at this point complaining of abdominal pain. OBJECTIVE: VITAL SIGNS: Temperature is 98, T-max for the past 24 hours 99.4, pulse rate 94 respirations 14, blood pressure 124/61. INTAKE AND OUTPUT: For the past 24 hours, 1496 in and 2690 out; since midnight 0 in and 520 out. GENERAL APPEARANCE: At bedside, she is ill-appearing. HEENT: Her mucosa is pink. There is an NG tube in place. NECK: Supple. No jugular venous distention is appreciated though the neck is russell. HEART: Sounds are regular without appreciable murmur. RESPIRATORY: Breath sounds are diminished with prolongation of the expiratory phase. There is some coarseness in the bases, but no overt rales. ABDOMEN: Soft and obese with a colostomy in place. EXTREMITIES: Cool. Pulses are diminished, but palpable. DIAGNOSTIC STUDIES: White cell count is down to 13.2, hemoglobin is down to 10.5, hematocrit 32.9, platelet count is 185,000. Differential white cell count shows 74% neutrophils and 3 bands. Her electrolytes are sodium 132, potassium 4.2, chloride 110. CO2 of 27. BUN is down at 17, creatinine is down at 0.69 from a high of 1.69. The glucose is 126. Phosphorus is 2. Her AST is 27, ALT 77. LDH is expectedly elevated at 251. CPK is 572. Her albumin is 1.8. Arterial blood gases were performed on noninvasive ventilation with pH of 7.41, pCO2 of 44, pO2 of 80.9. Chest imaging was reviewed and shows the right internal jugular catheter in good position. Heart size is ____ (cuts out). Lungs are hyperinflated. There is ____ (cuts out). MEDICATION REVIEW: This is day #3 of Ertapenem. She is receiving DuoNeb q. 6 hours, hydrocodone 50 mg q. 8 hours, and Symbicort. Home medications included prednisone and Spiriva. She is receiving subcutaneous heparin 1000 q. 8 and Protonix. ASSESSMENT AND PLAN: 1. The primary problem requiring critical attention is acute respiratory failure. We will proceed with weaning from noninvasive ventilation to supplemental oxygen today. 2. Acute kidney injury. Renal indices are better. We will continue to follow urine output. 3. Hypophosphatemia. We will replace and recheck. 4. Advanced obstructive airway disease. We will add back the anticholinergic and change to maintenance dosing of intermediate acting steroid. 5. Pain control. I have discussed this with surgery and they will manage her pain. 6. Gastrointestinal (GI) sepsis. This is day #3 of Ertapenem. White cell count is better though there are still band cells and she has had no fever. 7. Obstructive sleep apnea syndrome. We will transition to her home CPAP device. 8. Gastroesophageal reflux disease. The patient is on Protonix. 9. Deep vein thrombosis (DVT) prophylaxis being addressed with heparin. The case has been reviewed with general surgery at bedside. There was apparently extensive bowel distention at surgery and multiple decompressions were performed at that time. Bowel recovery is expected to be relatively slow. We will attempt to get the patient up out of bed today if possible. I have updated the ICU nursing team on the patient's status and care plans for the day. CRITICAL CARE TIME: 126 minutes in the provision of bedside critical care and coordination; exclusive of any time spent in the performance of procedures.
[2020-10-29 15:45] LABS: CALCIUM LEVEL 9.3 MG/DL (8.8-10.2); CREATININE FOR GFR 1.02 MG/DL (0.55-1.30); GLOMERULAR FILTRATION RATE 58.1 (>45); POTASSIUM SERUM 4.4 MEQ/L (3.5-5.1)
[2020-10-29 16:00] VITALS: BP 114/66
[2020-10-29 20:00] VITALS: BP 123/69
[2020-10-29] MEDS: LEVEMIR (INSULIN DETEMIR) 1 UNITS/0.01ML SC SCH (20:48)
[2020-10-29] MEDS: ERTAPENEM SODIUM 1 GM in NS MINI-BAG PLUS 50 ML IV SCH (20:48)
[2020-10-30] MEDS: MORPHINE 2 MG/ML 1ML VIAL (J2270) IV PRN ×5 (02:47→18:02)
[2020-10-30 04:00] VITALS: BP 119/81
[2020-10-30] MEDS: D5W/0.45% SODIUM CHLORIDE 1,000 ML IV SCH (04:20)
[2020-10-30] MEDS: KETOROLAC 30 MG/ML 1ML VIAL IV PRN ×2 (04:21→11:09)
[2020-10-30] MEDS: TIOTROPIUM INHALER/CAPSULE (SPIRIVA) INH SCH (06:13)
[2020-10-30] MEDS: SYMBICORT 160/4.5MCG INHALER 6GM INH SCH ×2 (06:14→20:23)
[2020-10-30] MEDS: IPRATROPIUM 0.5MG/ALBUTEROL 2.5MG INH SOL UD 3ML (DUONEB) NEB SCH ×2 (06:14→20:00)
[2020-10-30] MEDS: HumaLOG INSULIN (NovoLOG) PER UNIT SC SCH ×3 (06:35→17:19)
[2020-10-30 06:52] LABS: HEMATOCRIT 36.9 % (36.0-47.0); HEMOGLOBIN 11.5 g/dl (12.0-15.5); MEAN CORPUSCULAR HEMOGLOBIN 28.8 pg (27.0-33.0); MEAN CORPUSCULAR HGB CONC 31.2 g/dl (32.0-36.5); MEAN CORPUSCULAR VOLUME 92.5 fl (80.0-96.0); PLATELET COUNT, AUTOMATED 319 10^3/uL (150-450); RED BLOOD COUNT 3.99 10^6/uL (4.00-5.40); WHITE BLOOD COUNT 12.6 10^3/uL (4.0-10.0)
[2020-10-30 07:18] LABS: CALCIUM LEVEL 8.9 MG/DL (8.8-10.2); CREATININE FOR GFR 1.07 MG/DL (0.55-1.30); POTASSIUM SERUM 3.2 MEQ/L (3.5-5.1)
[2020-10-30] MEDS: HEPARIN SOD (PORCINE) 5000UNITS/ML 1ML VIAL/SYRINGE SQ SCH ×2 (08:02→14:55)
[2020-10-30] MEDS: ONDANSETRON 4MG/2ML VIAL IV PRN ×2 (08:03→14:55)
[2020-10-30] MEDS: ALVIMOPAN 12 MG CAPSULE (ENTEREG) PO SCH ×2 (08:03→21:09)
[2020-10-30] MEDS: MIRALAX *UNIT DOSE* 17GM PACKET PO SCH ×2 (08:03→21:08)
[2020-10-30] MEDS: PANTOPRAZOLE 40MG VIAL (C9113 PER 1) IV SCH (08:04)
[2020-10-30] MEDS: methylPREDNISolone 40MG 1ML VIAL IV SCH (08:04)
[2020-10-30] MEDS: SIMETHICONE 40MG/0.6ML DROPS 30ML PO SCH ×4 (09:00→21:09)
[2020-10-30] MEDS: KCL 40MEQ IN D5/0.45NS 1000ML 1,000 ML IV SCH (11:10)
[2020-10-30 13:56] VITALS: BP 128/66
--- NOTE | 2020-10-30 14:19 | IPNPDOC ---
Subjective Date Seen The patient was seen on 10/30/20. Subjective Chief Complaint/HPI Mrs. Tracy is a 65 year old female with COPD, pulmonary hypertension, and recurrent diverticulitis who presents with large bowel obstruction with bowel necrosis s/p colectomy and ostomy 10/22/20. This morning, she denies any chest pain. Her output appears to be less and she has an appetite. General surgery planning for clamping trial. Objective Physical Examination General Exam: Positive: Alert, Cooperative Eye Exam: Negative: Sclera icteric ENT Exam: Positive: Atraumatic Neck Exam: Positive: Supple Chest Exam: Positive: Clear to auscultation, Normal air movement Heart Exam: Positive: Rate Normal, Regular Rhythm, Normal S1, Normal S2 Telemetry: Positive: No significant arrhythmia Abdomen Exam: Positive: BS Hypoactive Neuro Exam: Positive: Normal Speech Psych Exam: Positive: Mental status NL Assessment /Plan Assessment Mrs. Tracy is a 65 year old female with COPD, pulmonary hypertension, and recurrent diverticulitis who presents with large bowel obstruction with bowel necrosis s/p colectomy and ostomy 10/22/20. General surgery following, recommendations appreciated. This morning, patient continues with NGT, but output has decreased. Planning for clamping trial today. Otherwise, patient is on Invanz for necrotic bowel Plan/VTE VTE Prophylaxis Ordered?: Yes VTE Exclusion Pharmacological: Other (surgery) Plan 1. Large bowel obstruction with bowel necrosis s/p colectomy and ostomy formation -Patient still has post op ileus -Continues with NGT and Entereg -There was necrotic bowel, patient is on Invanz day 8 2. COPD -After surgery, patient was kept on ventilator. Patient self extubated -Currently stable, not in acute exacerbation -Continue duonebs, Symbicort, and Tiotropium 3. Hypotension -Resolved -Weaning off steroids 4. Diabetes mellitus type 2 -Sliding scale insulin 5. Chronic diastolic CHF -Not in exacerbation/decompensation -Monitor 6. DVT ppx -Heparin subQ Disposition: Pending clinical improvement. NGT clamping trial today VS, I&O, 24H, Fishbone Vital Signs/I&O Vital Signs Date Time Temp Pulse Resp B/P (MAP) Pulse Ox O2 Delivery O2 Flow Rate FiO2 10/30/20 11:10 18 Nasal Cannula 10/30/20 04:30 5.0 10/30/20 04:00 97.0 80 119/81 (94) 94 10/25/20 09:23 40 I&O- Last 24 Hours up to 6 AM 10/30/20 06:00 Intake Total 1298 ml Output Total 1037 ml Balance 261 ml Laboratory Data 24H LABS Laboratory Tests 2 10/29/20 14:55: Anion Gap 5L, Glomerular Filtration Rate 58.1, Calcium Level 9.3 10/29/20 17:35: Bedside Glucose (Misc Panel) 147H 10/29/20 23:20: Bedside Glucose (Misc Panel) 107 10/30/20 05:53: Bedside Glucose (Misc Panel) 133H 10/30/20 06:34: Nucleated Red Blood Cells % (auto) 0.0, Anion Gap 5L, Glomerular Filtration Rate 55.0, Calcium Level 8.9 10/30/20 12:04: Bedside Glucose (Misc Panel) 222H CBC/BMP Laboratory Tests 10/29/20 14:55 10/30/20 06:34 Microbiology Microbiology 10/22/20 Blood Culture - Final, Complete NO GROWTH AFTER 5 DAYS 10/22/20 Blood Culture - Final, Complete NO GROWTH AFTER 5 DAYS 10/20/20 Urine Culture - Final, Complete 10/20/20 Blood Culture - Final, Complete NO GROWTH AFTER 5 DAYS 10/20/20 Respiratory Virus Panel (PCR) ([facility]) - Final, Complete 10/20/20 Blood Culture - Final, Complete NO GROWTH AFTER 5 DAYS ALEXSANDER VALDEZ DO October 30, 2020 14:19
[2020-10-30 15:36] LABS: CALCIUM LEVEL 8.8 MG/DL (8.8-10.2); CREATININE FOR GFR 1.07 MG/DL (0.55-1.30); POTASSIUM SERUM 4.3 MEQ/L (3.5-5.1)
[2020-10-30 20:17] VITALS: BP 121/67
[2020-10-30] MEDS: ERTAPENEM SODIUM 1 GM in NS MINI-BAG PLUS 50 ML IV SCH (21:08)
[2020-10-30] MEDS: LEVEMIR (INSULIN DETEMIR) 1 UNITS/0.01ML SC SCH (21:09)
[2020-10-30] MEDS: traMADol 50 MG TAB PO PRN (21:09)
[2020-10-31] MEDS: KCL 40MEQ IN D5/0.45NS 1000ML 1,000 ML IV SCH ×3 (00:40→23:30)
[2020-10-31] MEDS: HEPARIN SOD (PORCINE) 5000UNITS/ML 1ML VIAL/SYRINGE SQ SCH ×3 (00:40→14:57)
[2020-10-31] MEDS: HumaLOG INSULIN (NovoLOG) PER UNIT SC SCH ×4 (00:42→18:10)
[2020-10-31 05:13] VITALS: BP 121/97
[2020-10-31] MEDS: traMADol 50 MG TAB PO PRN (05:17)
[2020-10-31] MEDS: ONDANSETRON 4MG/2ML VIAL IV PRN ×3 (05:17→18:08)
[2020-10-31 06:51] LABS: HEMATOCRIT 35.6 % (36.0-47.0); HEMOGLOBIN 10.9 g/dl (12.0-15.5); MEAN CORPUSCULAR HEMOGLOBIN 28.3 pg (27.0-33.0); MEAN CORPUSCULAR HGB CONC 30.6 g/dl (32.0-36.5); MEAN CORPUSCULAR VOLUME 92.5 fl (80.0-96.0); PLATELET COUNT, AUTOMATED 304 10^3/uL (150-450); RED BLOOD COUNT 3.85 10^6/uL (4.00-5.40); WHITE BLOOD COUNT 12.3 10^3/uL (4.0-10.0)
[2020-10-31 07:11] LABS: C REACTIVE PROTEIN QUANTITATIV 4.28 MG/DL (0.00-0.30); CALCIUM LEVEL 8.8 MG/DL (8.8-10.2); CREATININE FOR GFR 1.08 MG/DL (0.55-1.30); GLOMERULAR FILTRATION RATE 54.4 (>45)
[2020-10-31 07:15] LABS: ERYTHROCYTE SEDIMENTATION RATE 61 mm/hr (0-30)
[2020-10-31] MEDS: methylPREDNISolone 40MG 1ML VIAL IV SCH (08:54)
[2020-10-31] MEDS: PANTOPRAZOLE 40MG VIAL (C9113 PER 1) IV SCH (08:54)
[2020-10-31] MEDS: MIRALAX *UNIT DOSE* 17GM PACKET PO SCH ×2 (08:54→21:25)
[2020-10-31] MEDS: MORPHINE 2 MG/ML 1ML VIAL (J2270) IV PRN ×3 (08:54→21:13)
[2020-10-31] MEDS: SIMETHICONE 40MG/0.6ML DROPS 30ML PO SCH ×4 (08:55→21:26)
[2020-10-31] MEDS: ALVIMOPAN 12 MG CAPSULE (ENTEREG) PO SCH ×2 (08:59→21:24)
[2020-10-31] MEDS ORDERED: PERCOCET 5MG/325MG TAB PO PRN (10:50)
--- NOTE | 2020-10-31 10:56 | IPNPDOC ---
Subjective Date Seen The patient was seen on 10/31/20. Subjective Chief Complaint/HPI Mrs. Tracy is a 65 year old female with COPD, pulmonary hypertension, and recurrent diverticulitis who presents with large bowel obstruction with bowel necrosis s/p colectomy and ostomy 10/22/20. This morning, she denies any chest pain. She still uses the IV morphine frequently for the abdominal pain. will try switching her to Percocet to wean her off of the Morphine. Objective Physical Examination General Exam: Positive: Alert, Cooperative Eye Exam: Negative: Sclera icteric ENT Exam: Positive: Atraumatic Neck Exam: Positive: Supple Chest Exam: Positive: Clear to auscultation, Normal air movement Heart Exam: Positive: Rate Normal, Regular Rhythm, Normal S1, Normal S2 Telemetry: Positive: No significant arrhythmia Abdomen Exam: Positive: BS Hypoactive Neuro Exam: Positive: Normal Speech Psych Exam: Positive: Mental status NL Assessment /Plan Assessment Mrs. Tracy is a 65 year old female with COPD, pulmonary hypertension, and recurrent diverticulitis who presents with large bowel obstruction with bowel necrosis s/p colectomy and ostomy 10/22/20. General surgery following, recommendations appreciated. NGT removed today (10/31/20). Trial of clear liquid diet. Otherwise, patient is on Invanz for necrotic bowel Plan/VTE VTE Prophylaxis Ordered?: Yes VTE Exclusion Pharmacological: Other (surgery) Plan 1. Large bowel obstruction with bowel necrosis s/p colectomy and ostomy formation -Patient starting to have BM -Continues with Entereg -There was necrotic bowel, patient is on Invanz day 9 2. COPD -After surgery, patient was kept on ventilator. Patient self extubated -Currently stable, not in acute exacerbation -Continue duonebs, Symbicort, and Tiotropium 3. Hypotension -Resolved -Weaning off steroids 4. Diabetes mellitus type 2 -Sliding scale insulin 5. Chronic diastolic CHF -Not in exacerbation/decompensation -Monitor 6. DVT ppx -Heparin subQ Disposition: Pending clinical improvement. Trial of clear liquid diet today VS, I&O, 24H, Fishbone Vital Signs/I&O Vital Signs Date Time Temp Pulse Resp B/P (MAP) Pulse Ox O2 Delivery O2 Flow Rate FiO2 10/31/20 08:54 20 Room Air 10/31/20 05:13 97.8 71 121/97 (105) 94 3.0 10/25/20 09:23 40 I&O- Last 24 Hours up to 6 AM 10/31/20 05:59 Intake Total 140 ml Output Total 20 ml Balance 120 ml Laboratory Data 24H LABS Laboratory Tests 2 10/30/20 12:04: Bedside Glucose (Misc Panel) 222H 10/30/20 15:00: Anion Gap 6L, Glomerular Filtration Rate 55.0, Calcium Level 8.8 10/30/20 17:03: Bedside Glucose (Misc Panel) 99 10/31/20 00:42: Bedside Glucose (Misc Panel) 108 10/31/20 06:14: Nucleated Red Blood Cells % (auto) 0.0, Erythrocyte Sedimentation Rate 61H, An ion Gap 4L, Glomerular Filtration Rate 54.4, Calcium Level 8.8, C-Reactive Protein, Quantitative 4.28H CBC/BMP Laboratory Tests 10/30/20 15:00 10/31/20 06:14 Microbiology Microbiology 10/22/20 Blood Culture - Final, Complete NO GROWTH AFTER 5 DAYS 10/22/20 Blood Culture - Final, Complete NO GROWTH AFTER 5 DAYS ALEXSANDER VALDEZ DO October 31, 2020 10:56
[2020-10-31] MEDS: IPRATROPIUM 0.5MG/ALBUTEROL 2.5MG INH SOL UD 3ML (DUONEB) NEB SCH ×3 (11:14→20:33)
[2020-10-31] MEDS: TIOTROPIUM INHALER/CAPSULE (SPIRIVA) INH SCH (11:15)
[2020-10-31] MEDS: SYMBICORT 160/4.5MCG INHALER 6GM INH SCH ×2 (11:15→20:32)
[2020-10-31] MEDS: PERCOCET 5MG/325MG TAB PO PRN ×2 (12:14→18:09)
[2020-10-31 14:00] VITALS: BP 124/66
[2020-10-31] MEDS: ERTAPENEM SODIUM 1 GM in NS MINI-BAG PLUS 50 ML IV SCH (21:25)
[2020-10-31] MEDS: LEVEMIR (INSULIN DETEMIR) 1 UNITS/0.01ML SC SCH (21:25)
[2020-10-31 22:00] VITALS: BP 123/64
[2020-11-01] MEDS: HEPARIN SOD (PORCINE) 5000UNITS/ML 1ML VIAL/SYRINGE SQ SCH ×3 (00:24→17:28)
[2020-11-01] MEDS: HumaLOG INSULIN (NovoLOG) PER UNIT SC SCH ×4 (00:24→17:29)
[2020-11-01] MEDS: PERCOCET 5MG/325MG TAB PO PRN ×5 (00:25→21:27)
[2020-11-01 02:00] VITALS: BP 122/66
[2020-11-01 06:14] LABS: HEMATOCRIT 32.7 % (36.0-47.0); MEAN CORPUSCULAR HEMOGLOBIN 28.1 pg (27.0-33.0); MEAN CORPUSCULAR HGB CONC 30.6 g/dl (32.0-36.5); MEAN CORPUSCULAR VOLUME 91.9 fl (80.0-96.0); PLATELET COUNT, AUTOMATED 296 10^3/uL (150-450); RED BLOOD COUNT 3.56 10^6/uL (4.00-5.40); WHITE BLOOD COUNT 11.8 10^3/uL (4.0-10.0)
[2020-11-01 06:35] LABS: BLOOD UREA NITROGEN 10 MG/DL (7-18); CALCIUM LEVEL 8.5 MG/DL (8.8-10.2); CARBON DIOXIDE LEVEL 25 MEQ/L (21-32); CHLORIDE LEVEL 112 MEQ/L (98-107); CREATININE FOR GFR 0.87 MG/DL (0.55-1.30); GLOMERULAR FILTRATION RATE > 60.0 (>45); GLUCOSE, FASTING 127 MG/DL (70-100); POTASSIUM SERUM 4.2 MEQ/L (3.5-5.1); SODIUM LEVEL 144 MEQ/L (136-145)
[2020-11-01 06:46] VITALS: BP 107/55
[2020-11-01] MEDS: SYMBICORT 160/4.5MCG INHALER 6GM INH SCH ×3 (08:00→19:13)
[2020-11-01] MEDS: TIOTROPIUM INHALER/CAPSULE (SPIRIVA) INH SCH (08:00)
[2020-11-01] MEDS: IPRATROPIUM 0.5MG/ALBUTEROL 2.5MG INH SOL UD 3ML (DUONEB) NEB SCH ×2 (08:01→19:13)
[2020-11-01] MEDS: SIMETHICONE 40MG/0.6ML DROPS 30ML PO SCH ×4 (09:00→21:28)
[2020-11-01] MEDS: MIRALAX *UNIT DOSE* 17GM PACKET PO SCH ×2 (09:00→21:27)
[2020-11-01] MEDS: PANTOPRAZOLE 40MG VIAL (C9113 PER 1) IV SCH (09:52)
[2020-11-01] MEDS: ALVIMOPAN 12 MG CAPSULE (ENTEREG) PO SCH (09:52)
[2020-11-01] MEDS: methylPREDNISolone 40MG 1ML VIAL IV SCH (09:52)
--- NOTE | 2020-11-01 11:05 | IPNPDOC ---
Subjective Date Seen The patient was seen on 11/01/20. Subjective Chief Complaint/HPI Mrs. Tracy is a 65 year old female with COPD, pulmonary hypertension, and recurrent diverticulitis who presents with large bowel obstruction with bowel necrosis s/p colectomy and ostomy 10/22/20. Yesterday, her NTG was removed, and she is tolerating a clear liquid diet. She was also able to be weaned off of IV morphine to PO Percocet. This morning, denies any chest pain or worsening dyspnea. She tells me she is chronically on 2L in the day time and 8L bleed through on BIPAP at night. Objective Physical Examination General Exam: Positive: Alert, Cooperative Eye Exam: Negative: Sclera icteric ENT Exam: Positive: Atraumatic Neck Exam: Positive: Supple Chest Exam: Positive: Clear to auscultation, Normal air movement Heart Exam: Positive: Rate Normal, Regular Rhythm, Normal S1, Normal S2 Telemetry: Positive: No significant arrhythmia Abdomen Exam: Positive: BS Hypoactive Neuro Exam: Positive: Normal Speech Psych Exam: Positive: Mental status NL Assessment /Plan Assessment Mrs. Tracy is a 65 year old female with COPD, pulmonary hypertension, and recurrent diverticulitis who presents with large bowel obstruction with bowel necrosis s/p colectomy and ostomy 10/22/20. General surgery following, recommendations appreciated. NGT removed today (10/31/20). Doing well with clear liquid diet. Will try solid diet tomorrow. Otherwise, patient is on Invanz for n ecrotic bowel Plan/VTE VTE Prophylaxis Ordered?: Yes VTE Exclusion Pharmacological: Other (surgery) Plan 1. Large bowel obstruction with bowel necrosis s/p colectomy and ostomy formation -Patient starting to have BM -Continues with Entereg -There was necrotic bowel, patient is on Invanz day 10 2. COPD -After surgery, patient was kept on ventilator. Patient self extubated -Currently stable, not in acute exacerbation -Continue duonebs, Symbicort, and Tiotropium 3. Chronic hypoxic respiratory failure -Chronically on 2L in the day time an 8L bleed through on BIPAP at night -Close to baseline 4. Hypotension -Resolved -Weaning off steroids 5. Diabetes mellitus type 2 -Sliding scale insulin 6. Chronic diastolic CHF -Not in exacerbation/decompensation -Monitor 7. DVT ppx -Heparin subQ Disposition: Pending clinical improvement. Trying for solid foods tomorrow VS, I&O, 24H, Fishbone Vital Signs/I&O Vital Signs Date Time Temp Pulse Resp B/P (MAP) Pulse Ox O2 Delivery O2 Flow Rate FiO2 11/01/20 07:11 15 11/01/20 06:46 97.5 72 107/55 (72) 94 High Flow Cannula 3.0 I&O- Last 24 Hours up to 6 AM 11/01/20 06:00 Intake Total 1220 ml Output Total 1350 ml Balance -130 ml Laboratory Data 24H LABS Laboratory Tests 2 10/31/20 11:57: Bedside Glucose (Misc Panel) 112 10/31/20 21:22: Bedside Glucose (Misc Panel) 153H 11/01/20 00:03: Bedside Glucose (Misc Panel) 148H 11/01/20 05:50: Nucleated Red Blood Cells % (auto) 0.0, Anion Gap 7L, Glomerular Filtration Rate > 60.0, Calcium Level 8.5L 11/01/20 06:34: Bedside Glucose (Misc Panel) 132H CBC/BMP Laboratory Tests 11/01/20 05:50 Microbiology Microbiology 10/22/20 Blood Culture - Final, Complete NO GROWTH AFTER 5 DAYS 10/22/20 Blood Culture - Final, Complete NO GROWTH AFTER 5 DAYS ALEXSANDER VALDEZ DO November 01, 2020 11:05
--- NOTE | 2020-11-01 11:40 | IPN ---
PROGRESS NOTE DATE: 10/31/2020 SUBJECTIVE: Patient overall seems to be making some good progress. Her ostomy is working well. She has had no nausea. She has had some significant ostomy output. We clamped her NG tube yesterday and she is tolerating clamping overnight without any problems. I hooked up the NG tube this morning and it really did not have any significant output. Her ostomy continues to put out a significant amount of liquid stool. Patient's white count is still hovering around 11-12 and otherwise her chemistries are starting to straighten out. PHYSICAL EXAMINATION: Her midline incision is intact, although she has had some drainage from the lower portion of her incision, and she had some mild erythema to this area and that is also improving. I am not really seeing any infection, but she probably had some underlying seroma given the overall girth and significant subcutaneous tissue, I am not surprised that she probably has some extra fluid that is in between the incision sites. In any case, the ostomy is functioning nicely and otherwise no other abdominal issues. IMPRESSION/PLAN: Patient seems to be making some good progress. Will start on clear liquids. If she does well, we will advance her diet as tolerated. From our standpoint, discontinuing the NG tube is fine at this point and progressing her diet to clear is reasonable next step. We will have to watch the midline incision and continue with dry sterile dressings on a p.r.n. basis.
--- NOTE | 2020-11-01 12:18 | IPN ---
PROGRESS NOTE DATE: 11/01/2020 SUBJECTIVE: The patient seems to be doing well with clear liquid diet, tolerating this well. Her drainage from her midline is also decreased. She has been afebrile. Her white count is still about 11.8 but no signs of fever. Otherwise, her ostomy is functioning quite nicely at this time. The MADELINE site is healed up nicely as well. ASSESSMENT/PLAN: The patient is resolving her postoperative ileus and at this point will advance her diet, although she states she would like to do clear liquids for today we can advance her diet to regular diet tomorrow morning and will see how she does with that. From the standpoint of the midline we will continue with dressing changes. I anticipate at some point she will have to be considered for possible subacute care depending on her ability to take care of her ostomy but I anticipate that should be okay from surgical standpoint within the next week.
[2020-11-01] MEDS: KCL 40MEQ IN D5/0.45NS 1000ML 1,000 ML IV SCH ×2 (13:02→21:28)
[2020-11-01 14:00] VITALS: BP 129/66
[2020-11-01 18:00] VITALS: BP 128/67
[2020-11-01 20:00] VITALS: BP 125/67
[2020-11-01] MEDS: LEVEMIR (INSULIN DETEMIR) 1 UNITS/0.01ML SC SCH (21:28)
[2020-11-01] MEDS: ERTAPENEM SODIUM 1 GM in NS MINI-BAG PLUS 50 ML IV SCH (21:28)
[2020-11-02] MEDS: HumaLOG INSULIN (NovoLOG) PER UNIT SC SCH ×5 (00:16→20:45)
[2020-11-02] MEDS: HEPARIN SOD (PORCINE) 5000UNITS/ML 1ML VIAL/SYRINGE SQ SCH ×4 (00:16→23:52)
[2020-11-02] MEDS: D5W/0.45% SODIUM CHLORIDE 1,000 ML IV SCH ×2 (01:40→12:17)
[2020-11-02] MEDS: PERCOCET 5MG/325MG TAB PO PRN ×5 (01:41→21:41)
[2020-11-02 02:00] VITALS: BP 143/61
[2020-11-02 05:54] LABS: HEMATOCRIT 31.3 % (36.0-47.0); HEMOGLOBIN 9.4 g/dl (12.0-15.5); MEAN CORPUSCULAR HEMOGLOBIN 27.7 pg (27.0-33.0); MEAN CORPUSCULAR VOLUME 92.3 fl (80.0-96.0); PLATELET COUNT, AUTOMATED 298 10^3/uL (150-450); RED BLOOD COUNT 3.39 10^6/uL (4.00-5.40); WHITE BLOOD COUNT 12.2 10^3/uL (4.0-10.0)
[2020-11-02 06:00] VITALS: BP 138/61
[2020-11-02 06:02] LABS: BLOOD UREA NITROGEN 7 MG/DL (7-18); C REACTIVE PROTEIN QUANTITATIV 3.68 MG/DL (0.00-0.30); CALCIUM LEVEL 8.4 MG/DL (8.8-10.2); CARBON DIOXIDE LEVEL 25 MEQ/L (21-32); CHLORIDE LEVEL 109 MEQ/L (98-107); CREATININE FOR GFR 0.75 MG/DL (0.55-1.30); GLOMERULAR FILTRATION RATE > 60.0 (>45); GLUCOSE, FASTING 114 MG/DL (70-100); POTASSIUM SERUM 4.3 MEQ/L (3.5-5.1); SODIUM LEVEL 141 MEQ/L (136-145)
[2020-11-02] MEDS: IPRATROPIUM 0.5MG/ALBUTEROL 2.5MG INH SOL UD 3ML (DUONEB) NEB SCH ×2 (06:15→20:01)
[2020-11-02] MEDS: SYMBICORT 160/4.5MCG INHALER 6GM INH SCH ×2 (06:15→20:01)
[2020-11-02] MEDS: TIOTROPIUM INHALER/CAPSULE (SPIRIVA) INH SCH (06:16)
[2020-11-02 07:13] LABS: ERYTHROCYTE SEDIMENTATION RATE 68 mm/hr (0-30)
[2020-11-02] MEDS ORDERED: GLUCOSE 4GM CHEW TABLET PO PRN (08:10)
[2020-11-02] MEDS ORDERED: GLUCAGON INJ 1MG VIAL SC PRN (08:10)
[2020-11-02] MEDS: PANTOPRAZOLE 40MG VIAL (C9113 PER 1) IV SCH (08:32)
[2020-11-02] MEDS: methylPREDNISolone 40MG 1ML VIAL IV SCH (08:32)
[2020-11-02] MEDS: SIMETHICONE 40MG/0.6ML DROPS 30ML PO SCH ×4 (08:33→21:42)
[2020-11-02] MEDS: MIRALAX *UNIT DOSE* 17GM PACKET PO SCH ×2 (08:33→21:41)
[2020-11-02] MEDS ORDERED: DEXTROSE 50% 50 ML SYRINGE IV PRN (09:00)
[2020-11-02 10:00] VITALS: BP 131/61
[2020-11-02 14:00] VITALS: BP 131/61
--- NOTE | 2020-11-02 15:10 | IPNPDOC ---
Subjective Date Seen The patient was seen on 11/02/20. Subjective Chief Complaint/HPI Mrs. Tracy is a 65 year old female with COPD, pulmonary hypertension, and recurrent diverticulitis who presents with large bowel obstruction with bowel necrosis s/p colectomy and ostomy 10/22/20. Patient was seen in the morning. She tolerated her solid diet without nausea or pain. She is looking forward to her next meal. Otherwise, I spoke with general surgery and discussed the case. Plan for a 14 day course of antibiotics. Objective Physical Examination General Exam: Positive: Alert, Cooperative Eye Exam: Negative: Sclera icteric ENT Exam: Positive: Atraumatic Neck Exam: Positive: Supple Chest Exam: Positive: Clear to auscultation, Normal air movement Heart Exam: Positive: Rate Normal, Regular Rhythm, Normal S1, Normal S2 Telemetry: Positive: No significant arrhythmia Abdomen Exam: Positive: Normal bowel sounds, Soft Neuro Exam: Positive: Normal Speech Psych Exam: Positive: Mental status NL Assessment /Plan Assessment Mrs. Tracy is a 65 year old female with COPD, pulmonary hypertension, and recurrent diverticulitis who presents with large bowel obstruction with bowel necrosis s/p colectomy and ostomy 10/22/20. General surgery following, recommend ations appreciated. NGT removed today (10/31/20). Patient is tolerating a solid diet. Otherwise, patient is on Invanz for necrotic bowel, patient will be on a 14 day antibiotic course. Patient will most likely need subacute rehab. Will need to readdress with PFS and PT. Plan/VTE VTE Prophylaxis Ordered?: Yes VTE Exclusion Pharmacological: Other (surgery) Plan 1. Large bowel obstruction with bowel necrosis s/p colectomy and ostomy formation -Patient starting to have BM -Continues with Entereg -There was necrotic bowel, patient is on Invanz day 12 2. COPD -After surgery, patient was kept on ventilator. Patient self extubated -Currently stable, not in acute exacerbation -Continue duonebs, Symbicort, and Tiotropium 3. Chronic hypoxic respiratory failure -Chronically on 2L in the day time an 8L bleed through on BIPAP at night -Close to baseline 4. Hypotension -Resolved -Weaning off steroids 5. Diabetes mellitus type 2 -Sliding scale insulin 6. Chronic diastolic CHF -Not in exacerbation/decompensation -Monitor 7. DVT ppx -Heparin subQ Disposition: Patient will most likely need subacute rehab. Will need to readdress with PFS and PT VS, I&O, 24H, Fishbone Vital Signs/I&O Vital Signs Date Time Temp Pulse Resp B/P (MAP) Pulse Ox O2 Delivery O2 Flow Rate FiO2 11/02/20 12:20 18 11/02/20 10:00 97.4 73 131/61 (84) 95 High Flow Mask 3.0 I&O- Last 24 Hours up to 6 AM 11/02/20 05:59 Intake Total 3160 ml Output Total 950 ml Balance 2210 ml Laboratory Data 24H LABS Laboratory Tests 2 11/01/20 16:38: Bedside Glucose (Misc Panel) 179H 11/02/20 00:00: Bedside Glucose (Misc Panel) 150H 11/02/20 05:20: Nucleated Red Blood Cells % (auto) 0.0, Erythrocyte Sedimentation Rate 68H, Anion Gap 7L, Glomerular Filtration Rate > 60.0, Calcium Level 8.4L, C-Reactive Protein, Quantitative 3.68H 11/02/20 11:36: Bedside Glucose (Misc Panel) 164H CBC/BMP Laboratory Tests 11/02/20 05:20 ALEXSANDER VALDEZ DO November 02, 2020 15:10
[2020-11-02 18:00] VITALS: BP 129/68
[2020-11-02] MEDS: LEVEMIR (INSULIN DETEMIR) 1 UNITS/0.01ML SC SCH (21:41)
[2020-11-02] MEDS: ERTAPENEM SODIUM 1 GM in NS MINI-BAG PLUS 50 ML IV SCH (21:42)
[2020-11-02 22:00] VITALS: BP 130/67
[2020-11-03] MEDS: PERCOCET 5MG/325MG TAB PO PRN ×4 (01:53→17:25)
[2020-11-03 02:00] VITALS: BP 120/69
[2020-11-03] MEDS: D5W/0.45% SODIUM CHLORIDE 1,000 ML IV SCH ×2 (03:55→12:54)
[2020-11-03 06:00] VITALS: BP 124/65
[2020-11-03 06:40] LABS: HEMATOCRIT 31.8 % (36.0-47.0); HEMOGLOBIN 9.9 g/dl (12.0-15.5); MEAN CORPUSCULAR HEMOGLOBIN 28.3 pg (27.0-33.0); MEAN CORPUSCULAR HGB CONC 31.1 g/dl (32.0-36.5); MEAN CORPUSCULAR VOLUME 90.9 fl (80.0-96.0); PLATELET COUNT, AUTOMATED 331 10^3/uL (150-450); WHITE BLOOD COUNT 13.2 10^3/uL (4.0-10.0)
[2020-11-03 07:09] LABS: BLOOD UREA NITROGEN 8 MG/DL (7-18); CARBON DIOXIDE LEVEL 30 MEQ/L (21-32); CHLORIDE LEVEL 109 MEQ/L (98-107); CREATININE FOR GFR 0.82 MG/DL (0.55-1.30); GLOMERULAR FILTRATION RATE > 60.0 (>45); GLUCOSE, FASTING 109 MG/DL (70-100); POTASSIUM SERUM 3.7 MEQ/L (3.5-5.1); SODIUM LEVEL 143 MEQ/L (136-145)
[2020-11-03] MEDS: IPRATROPIUM 0.5MG/ALBUTEROL 2.5MG INH SOL UD 3ML (DUONEB) NEB SCH ×2 (07:47→20:56)
[2020-11-03] MEDS: SYMBICORT 160/4.5MCG INHALER 6GM INH SCH ×2 (07:47→20:56)
[2020-11-03] MEDS: TIOTROPIUM INHALER/CAPSULE (SPIRIVA) INH SCH (07:47)
[2020-11-03] MEDS: HumaLOG INSULIN (NovoLOG) PER UNIT SC SCH ×4 (08:13→20:43)
[2020-11-03] MEDS: PANTOPRAZOLE 40MG VIAL (C9113 PER 1) IV SCH (08:14)
[2020-11-03] MEDS: MIRALAX *UNIT DOSE* 17GM PACKET PO SCH ×2 (08:14→20:30)
[2020-11-03] MEDS: methylPREDNISolone 40MG 1ML VIAL IV SCH (08:14)
[2020-11-03] MEDS: SIMETHICONE 40MG/0.6ML DROPS 30ML PO SCH ×4 (08:15→20:30)
[2020-11-03] MEDS: HEPARIN SOD (PORCINE) 5000UNITS/ML 1ML VIAL/SYRINGE SQ SCH ×3 (08:15→21:22)
--- NOTE | 2020-11-03 08:57 | IPN ---
PROGRESS NOTE DATE: 11/02/2020 SUBJECTIVE: The patient overall still has a persistently elevated white count and she has had some drainage from her lower incision, although it seems like it slowed down a little bit. She has an ostomy that has been functioning well and she has been afebrile. Has not had any fevers and overall, she has been feeling better every day. OBJECTIVE: On her physical exam, she has ecchymosis all across her lower abdomen that seems to be slowly getting better over time. Her ostomy is functioning nicely and her midline is without cellulitis and without erythema. IMPRESSION AND PLAN: The patient has still a fluid collection that is probably associated with her lymph edema and abdominal wall edema that is still draining in this area. It does not appear infected. We will see how it is doing overnight. If it looks a little bit better tomorrow, then we will continue with just dry dressings. However, if not, then we will place a wound VAC to help this drain better.
--- NOTE | 2020-11-03 09:03 | IPN ---
PROGRESS NOTE DATE: 11/03/2020 SUBJECTIVE: The patient is doing well. She feels better every day. She overall states that she still has some discomfort on the lower abdomen when she tries to get up and move around. OBJECTIVE: Unfortunately, she still has some serosanguineous drainage from her incision and has no evidence of cellulitis. No evidence of erythema. She does have some abdominal wall edema and ecchymosis on the lower abdomen. Given the timing of her surgery, I felt that it is reasonable to see if the henry are still holding or whether this would be better off with a wound VAC in place. Thus, henry were removed in the lower portion of the incision and the incision did separate in this area and there was some fluid underneath this area. There was an old hematoma in this area as well and mostly it was not foul smelling, did not appear infected, mostly seroma itself, and I was able to feel the fascia under here and it was intact. ASSESSMENT AND PLAN: Thus, we will place a wound VAC in this area. I did remove some additional henry up above and this area has stayed intact and together. Thus, we will use the wound VAC to see if this does not expedite her healing in this area.
[2020-11-03 10:00] VITALS: BP 122/82
--- NOTE | 2020-11-03 10:27 | IPNPDOC ---
Subjective Date Seen The patient was seen on 11/03/20. Subjective Chief Complaint/HPI Mrs. Tracy is a 65 year old female with COPD, pulmonary hypertension, and recurrent diverticulitis who presents with large bowel obstruction with bowel necrosis s/p colectomy and ostomy 10/22/20. Last night and this morning, general surgery looked at her wounds. Plan for wound vac to help improve healing. Otherwise, she has been afebrile. She has tolerated her solid diet without problems and have been having output from her ostomy bag. Objective Physical Examination General Exam: Positive: Alert, Cooperative Eye Exam: Negative: Sclera icteric ENT Exam: Positive: Atraumatic Neck Exam: Positive: Supple Chest Exam: Positive: Clear to auscultation, Normal air movement Heart Exam: Positive: Rate Normal, Regular Rhythm, Normal S1, Normal S2 Telemetry: Positive: No significant arrhythmia Abdomen Exam: Positive: Normal bowel sounds, Soft Neuro Exam: Positive: Normal Speech Psych Exam: Positive: Mental status NL Assessment /Plan Assessment Mrs. Tracy is a 65 year old female with COPD, pulmonary hypertension, and recurrent diverticulitis who presents with large bowel obstruction with bowel necrosis s/p colectomy and ostomy 10/22/20. General surgery following, recommendations appreciated. NGT removed today (10/31/20). Patient is tolerating a solid diet. Otherwise, patient is on Invanz for necrotic bowel, patient will be on a 14 day antibiotic course. Patient will most likely need subacute rehab. Will need to readdress with PFS and PT. Plan/VTE VTE Prophylaxis Ordered?: Yes VTE Exclusion Pharmacological: Other (surgery) Plan 1. Large bowel obstruction with bowel necrosis s/p colectomy and ostomy formation -Patient starting to have BM -Continues with Entereg -There was necrotic bowel, patient is on Invanz day 13 2. COPD -After surgery, patient was kept on ventilator. Patient self extubated -Currently stable, not in acute exacerbation -Continue duonebs, Symbicort, and Tiotropium 3. Chronic hypoxic respiratory failure -Chronically on 2L in the day time an 8L bleed through on BIPAP at night -Close to baseline 4. Hypotension -Resolved -Weaning off steroids 5. Diabetes mellitus type 2 -Sliding scale insulin 6. Chronic diastolic CHF -Not in exacerbation/decompensation -Monitor 7. DVT ppx -Heparin subQ Disposition: Patient will most likely need subacute rehab. Will need to readdress with PFS and PT VS, I&O, 24H, Fishbone Vital Signs/I&O Vital Signs Date Time Temp Pulse Resp B/P (MAP) Pulse Ox O2 Delivery O2 Flow Rate FiO2 11/03/20 08:45 18 11/03/20 06:00 97.8 74 124/65 (84) 95 Nasal Cannula 4.0 I&O- Last 24 Hours up to 6 AM 11/03/20 06:00 Intake Total 1490 ml Output Total 450 ml Balance 1040 ml Laboratory Data 24H LABS Laboratory Tests 2 11/02/20 11:36: Bedside Glucose (Misc Panel) 164H 11/02/20 16:54: Bedside Glucose (Misc Panel) 155H 11/02/20 20:15: Bedside Glucose (Misc Panel) 130H 11/03/20 06:26: Nucleated Red Blood Cells % (auto) 0.0, Anion Gap 4L, Glomerular Filtration Rate > 60.0, Calcium Level 9.0 CBC/BMP Laboratory Tests 11/03/20 06:26 ALEXSANDER VALDEZ DO November 03, 2020 10:27
[2020-11-03] MEDS: LIDOCAINE 5% (LIDODERM) PATCH TD SCH (12:53)
[2020-11-03 14:00] VITALS: BP 124/60
[2020-11-03 18:00] VITALS: BP 147/75
[2020-11-03] MEDS ORDERED: KETOROLAC 30 MG/ML 1ML VIAL IV ONE (20:05)
[2020-11-03] MEDS: ERTAPENEM SODIUM 1 GM in NS MINI-BAG PLUS 50 ML IV SCH (20:29)
[2020-11-03] MEDS: **NOTE PATIENT COMMENT** MISC XX SCH (20:31)
[2020-11-03] MEDS: LEVEMIR (INSULIN DETEMIR) 1 UNITS/0.01ML SC SCH (20:43)
[2020-11-03 22:00] VITALS: BP 139/75
[2020-11-04] MEDS: PERCOCET 5MG/325MG TAB PO PRN ×3 (01:16→23:29)
[2020-11-04] MEDS ORDERED: MORPHINE 2 MG/ML 1ML VIAL (J2270) IV ONE (03:30)
[2020-11-04] MEDS: D5W/0.45% SODIUM CHLORIDE 1,000 ML IV SCH (03:38)
[2020-11-04] MEDS: ONDANSETRON 4MG/2ML VIAL IV PRN (03:42)
[2020-11-04 06:00] VITALS: BP 118/70
[2020-11-04] MEDS: HEPARIN SOD (PORCINE) 5000UNITS/ML 1ML VIAL/SYRINGE SQ SCH ×3 (06:05→23:07)
[2020-11-04] MEDS: SYMBICORT 160/4.5MCG INHALER 6GM INH SCH ×2 (07:10→19:42)
[2020-11-04] MEDS: TIOTROPIUM INHALER/CAPSULE (SPIRIVA) INH SCH (07:10)
[2020-11-04] MEDS: IPRATROPIUM 0.5MG/ALBUTEROL 2.5MG INH SOL UD 3ML (DUONEB) NEB SCH ×2 (07:10→19:42)
[2020-11-04] MEDS: PANTOPRAZOLE 40MG VIAL (C9113 PER 1) IV SCH (08:57)
[2020-11-04] MEDS: HumaLOG INSULIN (NovoLOG) PER UNIT SC SCH ×4 (08:57→20:44)
[2020-11-04] MEDS: methylPREDNISolone 40MG 1ML VIAL IV SCH (08:58)
[2020-11-04] MEDS: MIRALAX *UNIT DOSE* 17GM PACKET PO SCH ×2 (08:58→20:38)
[2020-11-04] MEDS: SIMETHICONE 40MG/0.6ML DROPS 30ML PO SCH ×4 (08:59→20:38)
[2020-11-04] MEDS: LIDOCAINE 5% (LIDODERM) PATCH TD SCH (08:59)
[2020-11-04 09:07] LABS: HEMATOCRIT 32.7 % (36.0-47.0); HEMOGLOBIN 10.1 g/dl (12.0-15.5); MEAN CORPUSCULAR HEMOGLOBIN 28.5 pg (27.0-33.0); MEAN CORPUSCULAR HGB CONC 30.9 g/dl (32.0-36.5); MEAN CORPUSCULAR VOLUME 92.1 fl (80.0-96.0); PLATELET COUNT, AUTOMATED 349 10^3/uL (150-450); RED BLOOD COUNT 3.55 10^6/uL (4.00-5.40); WHITE BLOOD COUNT 11.6 10^3/uL (4.0-10.0)
[2020-11-04 09:33] LABS: BLOOD UREA NITROGEN 12 MG/DL (7-18); CALCIUM LEVEL 8.4 MG/DL (8.8-10.2); CARBON DIOXIDE LEVEL 28 MEQ/L (21-32); CHLORIDE LEVEL 108 MEQ/L (98-107); CREATININE FOR GFR 0.84 MG/DL (0.55-1.30); GLOMERULAR FILTRATION RATE > 60.0 (>45); GLUCOSE, FASTING 156 MG/DL (70-100); POTASSIUM SERUM 3.9 MEQ/L (3.5-5.1); SODIUM LEVEL 143 MEQ/L (136-145)
--- NOTE | 2020-11-04 12:24 | REP ---
INDICATION: productive cough COMPARISON: Multiple examinations dating through 06/19/2020 TECHNIQUE: PA and lateral. FINDINGS: Mediastinum and cardiac silhouette are stable and within normal limits. Bibasilar fibroatelectatic changes are again noted and suggest acute on chronic changes. Correlation is required. No effusion. No pneumothorax. IMPRESSION: Bibasilar fibroatelectatic changes require further investigation and follow-up. <Electronically signed by Kai Nguyen > 11/04/20 [id number]
--- NOTE | 2020-11-04 12:35 | IPNPDOC ---
Subjective Date Seen The patient was seen on 11/04/20. Subjective Chief Complaint/HPI Mrs. Tracy is a 65 year old female with COPD, pulmonary hypertension, and recurrent diverticulitis who presents with large bowel obstruction with bowel necrosis s/p colectomy and ostomy 10/22/20. Last night, patient, reported abdominal pain and received a dose of Toradol and Morphine. Morphine helped with the pain. This morning, patient requests something additional for abdominal pain. Objective Physical Examination General Exam: Positive: Alert, Cooperative Eye Exam: Negative: Sclera icteric ENT Exam: Positive: Atraumatic Neck Exam: Positive: Supple Chest Exam: Positive: Clear to auscultation, Normal air movement Heart Exam: Positive: Rate Normal, Regular Rhythm, Normal S1, Normal S2 Telemetry: Positive: No significant arrhythmia Abdomen Exam: Positive: Normal bowel sounds, Soft Neuro Exam: Positive: Normal Speech Psych Exam: Positive: Mental status NL Assessment /Plan Assessment Mrs. Tracy is a 65 year old female with COPD, pulmonary hypertension, and recurrent diverticulitis who presents with large bowel obstruction with bowel necrosis s/p colectomy and ostomy 10/22/20. General surgery following, recommendations appreciated. NGT removed today (10/31/20). Patient is tolerating a solid diet. Otherwise, patient is on Invanz for necrotic bowel, patient will be on a 14 day antibiotic course. Patient will most likely need subacute rehab. Pending insurance approval for [facility]. Plan/VTE VTE Prophylaxis Ordered?: Yes VTE Exclusion Pharmacological: Other (surgery) Plan 1. Large bowel obstruction with bowel necrosis s/p colectomy and ostomy formation -Patient starting to have BM -Continues with Entereg -There was necrotic bowel, patient is on Invanz day 14 2. COPD -After surgery, patient was kept on ventilator. Patient self extubated -Currently stable, not in acute exacerbation -Continue duonebs, Symbicort, and Tiotropium 3. Chronic hypoxic respiratory failure -Chronically on 2L in the day time an 8L bleed through on BIPAP at night -Close to baseline 4. Hypotension -Resolved -Weaning off steroids 5. Diabetes mellitus type 2 -Sliding scale insulin 6. Chronic diastolic CHF -Not in exacerbation/decompensation -Monitor 7. DVT ppx -Heparin subQ Disposition: Patient will most likely need subacute rehab. Pending insurance approval for [facility] VS, I&O, 24H, [place] Vital Signs/I&O Vital Signs Date Time Temp Pulse Resp B/P (MAP) Pulse Ox O2 Delivery O2 Flow Rate FiO2 11/04/20 09:00 2.0 11/04/20 06:00 98.3 92 20 118/70 (86) 94 Nasal Cannula I&O- Last 24 Hours up to 6 AM 11/04/20 05:59 Intake Total 2009 ml Output Total 0 ml Balance 2010 ml Laboratory Data 24H LABS Laboratory Tests 2 11/03/20 16:40: Bedside Glucose (Misc Panel) 178H 11/03/20 20:42: Bedside Glucose (Misc Panel) 124H 11/04/20 07:28: Bedside Glucose (Misc Panel) 124H 11/04/20 08:47: Nucleated Red Blood Cells % (auto) 0.0, Anion Gap 7L, Glomerular Filtration Rate > 60.0, Calcium Level 8.4L 11/04/20 11:39: Bedside Glucose (Misc Panel) 174H CBC/BMP Laboratory Tests 11/04/20 08:47 ALEXSANDER VALDEZ DO Nov 04, 2020 12:35
[2020-11-04 14:00] VITALS: BP 114/70
[2020-11-04 15:01] LABS: NT-PRO BNP 538 PG/ML (<125)
[2020-11-04] MEDS: ERTAPENEM SODIUM 1 GM in NS MINI-BAG PLUS 50 ML IV SCH (20:39)
[2020-11-04] MEDS: **NOTE PATIENT COMMENT** MISC XX SCH (20:39)
[2020-11-04] MEDS: LEVEMIR (INSULIN DETEMIR) 1 UNITS/0.01ML SC SCH (20:44)
[2020-11-04 22:00] VITALS: BP 122/75
[2020-11-05] MEDS: oxyCODONE 5MG TAB PO PRN ×3 (02:15→21:31)
[2020-11-05 06:00] VITALS: BP 123/65
[2020-11-05 06:19] LABS: HEMATOCRIT 31.7 % (36.0-47.0); HEMOGLOBIN 9.7 g/dl (12.0-15.5); MEAN CORPUSCULAR HEMOGLOBIN 28.2 pg (27.0-33.0); MEAN CORPUSCULAR HGB CONC 30.6 g/dl (32.0-36.5); MEAN CORPUSCULAR VOLUME 92.2 fl (80.0-96.0); PLATELET COUNT, AUTOMATED 363 10^3/uL (150-450); RED BLOOD COUNT 3.44 10^6/uL (4.00-5.40); WHITE BLOOD COUNT 10.1 10^3/uL (4.0-10.0)
[2020-11-05] MEDS: HEPARIN SOD (PORCINE) 5000UNITS/ML 1ML VIAL/SYRINGE SQ SCH ×3 (06:31→20:05)
[2020-11-05 06:43] LABS: BLOOD UREA NITROGEN 10 MG/DL (7-18); CALCIUM LEVEL 8.6 MG/DL (8.8-10.2); CARBON DIOXIDE LEVEL 31 MEQ/L (21-32); CHLORIDE LEVEL 108 MEQ/L (98-107); CREATININE FOR GFR 0.77 MG/DL (0.55-1.30); GLOMERULAR FILTRATION RATE > 60.0 (>45); GLUCOSE, FASTING 99 MG/DL (70-100); POTASSIUM SERUM 4.2 MEQ/L (3.5-5.1); SODIUM LEVEL 144 MEQ/L (136-145)
[2020-11-05] MEDS: HumaLOG INSULIN (NovoLOG) PER UNIT SC SCH ×4 (07:30→19:56)
[2020-11-05] MEDS: SYMBICORT 160/4.5MCG INHALER 6GM INH SCH ×2 (07:42→19:23)
[2020-11-05] MEDS: TIOTROPIUM INHALER/CAPSULE (SPIRIVA) INH SCH (07:42)
[2020-11-05] MEDS: IPRATROPIUM 0.5MG/ALBUTEROL 2.5MG INH SOL UD 3ML (DUONEB) NEB SCH ×2 (07:44→19:23)
[2020-11-05] MEDS ORDERED: OXYC-517 PO (09:29)
[2020-11-05] MEDS ORDERED: INFA20DR3 PO (09:29)
[2020-11-05] MEDS ORDERED: PERCOCET PO (09:29)
[2020-11-05] MEDS ORDERED: PANT40TA29 PO (09:29)
[2020-11-05] MEDS ORDERED: INSUDET SC (09:29)
[2020-11-05] MEDS ORDERED: INSUHUMDS SC ×2 (09:29)
[2020-11-05] MEDS ORDERED: MIRA1POW3 PO (09:29)
[2020-11-05] MEDS ORDERED: LIDO5TD TD (09:29)
[2020-11-05] MEDS ORDERED: PRED5TA PO (09:29)
[2020-11-05] MEDS: SIMETHICONE 40MG/0.6ML DROPS 30ML PO SCH ×4 (09:47→20:03)
[2020-11-05] MEDS: methylPREDNISolone 40MG 1ML VIAL IV SCH (09:47)
[2020-11-05] MEDS: LIDOCAINE 5% (LIDODERM) PATCH TD SCH (09:48)
[2020-11-05] MEDS: PANTOPRAZOLE 40MG TAB (PROTONIX) PO SCH (09:48)
[2020-11-05] MEDS: MIRALAX *UNIT DOSE* 17GM PACKET PO SCH ×2 (09:48→20:04)
--- NOTE | 2020-11-05 11:15 | DS.PDOC ---
Discharge Summary General Date of Admission October 20, 2020 at 13:56 Date of Discharge Nov 05, 2020 Specialist/Consultants Involve General surgery, Dr. Mata and Dr. Pa Pulmonary/Critical Care, Dr. Newman, Dr. Farias, and Dr. Eubanks Discharge Summary PROCEDURES PERFORMED DURING STAY: 1. Central line insertion by Dr. Newman on 10/22/2020 2. Sigmoid colectomy and colostomy by Dr. Pa on 10/22/2020 ADMITTING DIAGNOSES: 1. Partial bowel obstruction from stricture vs mass 2. COPD with Cor pulmonale 3. Diabetes mellitus type 2 4. Tobacco abuse 5. Heart failure with preserved ejection fraction 6. Chronic hypoxic respiratory failure (2L during the day time and 8L bleed thro ugh Bipap at night) DISCHARGE DIAGNOSES: 1. Large bowel obstruction with bowel necrosis s/p colectomy and ostomy formation 2. COPD with Cor pulmonale 3. Diabetes mellitus type 2 4. Tobacco abuse 5. Heart failure with preserved ejection fraction 6. Chronic hypoxic respiratory failure (2L during the day time and 8L bleed through Bipap at night) COMPLICATIONS/CHIEF COMPLAINT: Large Bowel Obstruction. HISTORY OF PRESENT ILLNESS: Copied from admitting physician's H&P " Rossana Schilling has been having trouble passing stool for about a week, increasing abdominal distention, and pain. She came to the emergency room where a CT scan of the abdomen and pelvis showed fluid-filled mildly dilated colon proximal to a persistent area of narrowing in the sigmoid. There is no definite perisigmoidal fatty infiltration. Finds felt secondary to stricture from chronic inflammation versus a neoplasm. She is being admitted for further evaluation. HOSPITAL COURSE: General surgery evaluated patient and attempted conservative measures. Patient failed conservative measures and was decompensating. Patient was taken to the OR early childhood director of 10/22/2020. Patient had necrotic bowel. Aft er surgery, patient was hypotensive and a central line was placed and patient was kept on the ventilator. Patient was started on Ertapenem for broad spectrum coverage. Patient self extubated on 10/23/2020 and was doing okay with the CPAP. Patient's oxygen requirements were weaned down and patient did well. She initially had post-op ileus, but now is having output from her ostomy and is tolerating a solid diet. She completed a 14 day course of Ertapenem for necrotic bowel. Patient initially had leakage from her wound site. General surgery cleaned the site and placed a wound vac which has been working well. Patient worked with physical therapy who recommended patient to rehab. This morning patient feels well. She is at her baseline oxygen requirements. CXR demonstrated bibasilar atelectasis. Denies worsening dyspnea or chest pain. She complains of pain at night at her surgical site, but it is okay during the day time. Patient will be discharged to [facility]. General surgery, Dr. Pa would like to see patient in 1 week for staple removal. DISCHARGE MEDICATIONS: Please see below. ALLERGIES: Please see below. PHYSICAL EXAMINATION ON DISCHARGE: VITAL SIGNS: Please see below. GENERAL: Comfortable, in no apparent distress. HEENT: Head normocephalic/atraumatic, EOMI, sclera clear. NECK: Supple. RESPIRATORY: Coarse breath sounds bilaterally. CARDIOVASCULAR: Regular rate and rhythm. ABDOMEN: Normal bowel sounds. Wound vac in place and surgical staple seen going up abdomen. No signs of cellulitis NEUROLOGICAL: CN 312 grossly intact, no focal deficits noted. PSYCHOLOGICAL: Normal mood and affect LABORATORY DATA: Please see below. IMAGING: Radiologist interpretation CT abd/pelvis with IV contrast only on 10/20/2020 FINDINGS: Stable chronic changes are again seen in the lung bases. The liver and spleen are again seen to be within normal limits. The pancreas, kidneys, and adrenal glands are unchanged. There is no free fluid or free air. There is no significant change in the appearance of the abdominal aorta or para- regions. Once again, the colon is for the most part fluid-filled and mildly distended. Once again, there is an abrupt transition in the sigmoid colon where distal to this transition the sigmoid colon has a normal caliber. The appearance of this transition is essentially unchanged. There is sigmoid colon diverticulosis. There is no change in the appearance of the adipose containing ventral hernia. There is no significant change in appearance of the imaged osseous structures. IMPRESSION: Persistent transition in the sigmoid colon as described above and proximal to which there is a predominantly fluid-filled mildly dilated colon. There is no definite Sallie sigmoidal fatty infiltration. The finding could be secondary to either a persistent sigmoid colon narrowing due to scar/fibrosis from chronic inflammatory change or neoplastic change which cannot be ruled out by this exam. I have not been given history of recent colonoscopy. Follow-up with colonoscopy should be obtained if clinically relevant. Other findings as described above. CT abd/pelvis w/o contrast on 10/21/2020 FINDINGS: Tubes, catheters and devices: There is a nasogastric tube in the stomach. Lungs: Worsening fibrosis and atelectasis in the right lung base. Liver: The liver is low attenuation indicating hepatic steatosis. Gallbladder and bile ducts: Normal. No calcified stones. No ductal dilation. Pancreas: Normal. No ductal dilation. Spleen: Normal. No splenomegaly. Adrenal glands: Normal. No mass. Kidneys and ureters: Normal. No hydronephrosis. Stomach and bowel: There is worsening distention of the colon with a large amount of fluid and air to the level of an abrupt transition point at the junction of the descending and sigmoid segments of the colon. The sigmoid colon and rectum are nondilated. Sigmoid diverticulosis is present. There is worsening fluid distention throughout the small bowel and stomach with small bowel loops measuring up to 4 cm. No pneumatosis is seen. Appendix: No evidence of appendicitis. Intraperitoneal space: No pneumoperitoneum or abscess. Vasculature: Unremarkable. No abdominal aortic aneurysm. Lymph nodes: Unremarkable. No enlarged lymph nodes. Urinary bladder: Unremarkable as visualized. Reproductive: Unremarkable as visualized. Bones/joints: Unremarkable. No acute fracture. Soft tissues: Unremarkable. IMPRESSION: 1. Distal colonic obstruction with stricture of the sigmoid colon. Worsening dilation of the colon and small bowel. No signs of ischemia or perforation. 2. Colonic diverticulosis. 3. Hepatic steatosis. PROGNOSIS: Good ACTIVITY: As tolerated. DIET: Consistent carbohydrates DISCHARGE PLAN: [facility] DISPOSITION: [facility]. DISCHARGE INSTRUCTIONS: 1. After discharge from rehab, follow up with your PCP within a week 2. Follow up with general surgery, Dr. Pa, in 1 week for stable removal ITEMS TO FOLLOWUP ON ON OUTPATIENT: 1. Prednisone taper 2. Stable removal with general surgery in 1 week DISCHARGE CONDITION: Stable. Total time spent on discharge planning, discharge summary, and medication reconciliation: 60 minutes Vital Signs/I&Os Vital Signs Date Time Temp Pulse Resp B/P (MAP) Pulse Ox O2 Delivery O2 Flow Rate FiO2 11/05/20 07:00 18 Nasal Cannula 2.0 11/05/20 06:00 96.1 85 123/65 (84) 93 I&O- Last 24 Hours up to 6 AM 11/05/20 06:00 Intake Total 3160 ml Output Total 25 ml Balance 3135 ml Laboratory Data Labs 24H Laboratory Tests 2 11/04/20 11:39: Bedside Glucose (Misc Panel) 174H 11/04/20 16:27: Bedside Glucose (Misc Panel) 170H 11/04/20 17:29: Bedside Glucose (Misc Panel) 140H 11/04/20 20:38: Bedside Glucose (Misc Panel) 137H 11/05/20 05:45: Nucleated Red Blood Cells % (auto) 0.2H, Anion Gap 5L, Glomerular Filtration Rate > 60.0, Calcium Level 8.6L CBC/BMP Laboratory Tests 11/05/20 05:45 FSBS Laboratory Tests Test 11/04/20 11:39 11/04/20 16:27 11/04/20 17:29 11/04/20 20:38 Range/Units Bedside Glucose (Misc Panel) 174 170 140 137 80-115 MG/DL Discharge Medications Scheduled Aspirin (Aspirin EC) 81 Mg Tabec, 81 MG PO DAILY, (Reported) Budesonide/Formoterol (Symbicort 160-4.5 Mcg Inhaler) 6 Gm Hfa.aer.ad, 2 PUFF INH BID, (Reported) Furosemide (Furosemide) 40 Mg Tab, 40 MG PO DAILY, (Reported) Guaifenesin (Mucinex) 600 Mg Tab.er.12h, 600 MG PO BID, (Reported) Insulin Detemir (Levemir) 100 Unit/1 Ml Vial, 10 UNITS SC QHS Insulin Human Lispro (Humalog) 100 Unit/1 Ml Vial, 0 UNITS SC AC Per sliding scale protocol Insulin Human Lispro (Humalog) 100 Unit/1 Ml Vial, 0 UNITS SC QHS Per sliding scale protocol Lidocaine (Lidocaine) 5% Adh..patch, 1 PATCH TD DAILY Nicotine (Nicotine Patch) 21 Mg Patch.td24, 1 PATCH TOP DAILY, (Reported) APPLIES TO ARMS OR CHEST Omeprazole (Omeprazole) 20 Mg Capsule.dr, 20 MG PO DAILY, (Reported) Pantoprazole Sodium (Pantoprazole Sodium) 40 Mg Tablet.dr, 40 MG PO DAILY Polyethylene Glycol 3350 (Miralax) 119 Gm Powder, 17 GM PO Q2D, (Reported) HS Polyethylene Glycol 3350 (Miralax) 17 Gm Powd.pack, 1 PKT PO BID Prednisone (Prednisone) 20 Mg Tablet, 20 MG PO DAILY, (Reported) TAPER DOSE STARTED 10/10/20 - 20MG BID FOR 5 DAYS, 20MG DAILY FOR 5 DAYS, 5MG DAILY FOR 6 DAYS, 5MG EVERY OTHER DAY FOR 5 DAYS Prednisone (Prednisone) 5 Mg Tablet, 5 MG PO TAPER Take 10mg qD for 3 days, then take 5mg qD for 3 days, then stop Simethicone (Infants' Gas Relief) 40 Mg/0.6 Ml Drops.susp, 120 MG PO QID Tiotropium [place] (Spiriva) 18 Mcg Cap.w.dev, 18 MCG PO DAILY, (Reported) Scheduled PRN Albuterol Sulf (Albuterol Sulfate) 2.5 Mg/3 Ml Nebu, 2.5 MG INH Q4H PRN for SHORTNESS OF BREATH, (Reported) Albuterol Sulfate (Proair Hfa) 8.5 Gm Hfa.aer.ad, 2 PUFF INH Q4H PRN for SHORTNESS OF BREATH, (Reported) Fluticasone Propionate (Flonase Allergy Relief) 9.9 Ml Loving.susp, 2 SPRAYS NA DAILY PRN for ALLERGIES, (Reported) Furosemide (Furosemide) 40 Mg Tablet, 40 MG PO QPM PRN for URINARY RETENTION, (Reported) Oxycodone HCl (Oxycodone HCl) 5 Mg Tablet, 5 MG PO Q6HP PRN for SEVERE PAIN (PS 8-10) For breakthrough pain Oxycodone/Acetaminophen (Oxycodone-Acetaminophen 5-325) 1 Each Tablet, 2 TAB PO Q4HP PRN for SEVERE PAIN (PS 8-10) Tramadol HCl (Tramadol HCl) 50 Mg Tablet, 50 MG PO Q6H PRN for PAIN, (Reported) Allergies Coded Allergies: Penicillins (Verified Allergy, Intermediate, HIVES, 05/08/19) pt has had cefdinir in the past Quinolones (Verified Allergy, Intermediate, RASH, 05/08/19) metronidazole (Verified Allergy, Mild, itching, 05/08/19) Sulfa (Sulfonamide Antibiotics) (Verified Adverse Reaction, Intermediate, VOMITING, BLISTERS, TACHYCARDIA, 05/08/19) Tetracyclines (Verified Adverse Reaction, Intermediate, TACHYCARDIA, BLISTERS, HIVES, 05/08/19) aripiprazole (Verified Adverse Reaction, Intermediate, TACHYCARDIA, 05/08/19) venlafaxine (Verified Adverse Reaction, Mild, INCREASED HR, 05/08/19) Macrolide Antibiotics (Verified Adverse Reaction, Unknown, ITCHY, HIVES, 05/08/19) HAS TAKEN AZITHROMYCIN W/O PROBLEM ALEXSANDER VALDEZ DO Nov 05, 2020 10:00
[2020-11-05 14:00] VITALS: BP 136/78
[2020-11-05] MEDS: LEVEMIR (INSULIN DETEMIR) 1 UNITS/0.01ML SC SCH (19:57)
--- NOTE | 2020-11-05 19:58 | IPNPDOC ---
Subjective Date Seen The patient was seen on 11/05/20. Subjective Chief Complaint/HPI Mrs. Tracy is a 65 year old female with COPD, pulmonary hypertension, and recurrent diverticulitis who presents with large bowel obstruction with bowel necrosis s/p colectomy and ostomy 10/22/20. This morning patient feels well. She is at her baseline oxygen requirements. Denies worsening dyspnea or chest pain. She complains of pain at night at her surgical site, but it is okay during the day time. [facility], but was not able to because they did not bring large enough transport. Anticipate transport tomorrow. Objective Physical Examination General Exam: Positive: Alert, Cooperative Eye Exam: Negative: Sclera icteric ENT Exam: Positive: Atraumatic Neck Exam: Positive: Supple Chest Exam: Positive: Clear to auscultation, Normal air movement Heart Exam: Positive: Rate Normal, Regular Rhythm, Normal S1, Normal S2 Telemetry: Positive: No significant arrhythmia Abdomen Exam: Positive: Normal bowel sounds, Soft Neuro Exam: Positive: Normal Speech Psych Exam: Positive: Mental status NL Assessment /Plan Assessment Mrs. Tracy is a 65 year old female with COPD, pulmonary hypertension, and recurrent diverticulitis who presents with large bowel obstruction with bowel necrosis s/p colectomy and ostomy 10/22/20. General surgery following, recommendations appreciated. NGT removed today (10/31/20). Patient is tolerating a solid diet. Otherwise, patient is on Invanz for necrotic bowel, patient complete 14 days of Invanz Plan/VTE VTE Prophylaxis Ordered?: Yes VTE Exclusion Pharmacological: Other (surgery) Plan 1. Large bowel obstruction with bowel necrosis s/p colectomy and ostomy formation -Patient starting to have BM -Continues with Entereg -There was necrotic bowel, patient completed 14 days of Invanz 2. COPD -After surgery, patient was kept on ventilator. Patient self extubated -Currently stable, not in acute exacerbation -Continue duonebs, Symbicort, and Tiotropium 3. Chronic hypoxic respiratory failure -Chronically on 2L in the day time an 8L bleed through on BIPAP at night -Close to baseline 4. Hypotension -Resolved -Weaning off steroids 5. Diabetes mellitus type 2 -Sliding scale insulin 6. Chronic diastolic CHF -Not in exacerbation/decompensation -Monitor 7. DVT ppx -Heparin subQ Disposition: Pending transfer to [facility] tomorrow. VS, I&O, 24H, Fishbone Vital Signs/I&O Vital Signs Date Time Temp Pulse Resp B/P (MAP) Pulse Ox O2 Delivery O2 Flow Rate FiO2 11/05/20 14:00 98.5 93 22 136/78 (97) 94 11/05/20 10:40 Non-Rebreather 11/05/20 09:49 2.0 I&O- Last 24 Hours up to 6 AM 11/05/20 06:00 Intake Total 3160 ml Output Total 25 ml Balance 3135 ml Laboratory Data 24H LABS Laboratory Tests 2 11/04/20 20:38: Bedside Glucose (Misc Panel) 137H 11/05/20 05:45: Nucleated Red Blood Cells % (auto) 0.2H, Anion Gap 5L, Glomerular Filtration Rate > 60.0, Calcium Level 8.6L 11/05/20 11:13: Coronavirus (COVID-19)(PCR) NEGATIVE 11/05/20 11:33: Bedside Glucose (Misc Panel) 143H 11/05/20 16:18: Bedside Glucose (Misc Panel) 159H CBC/BMP Laboratory Tests 11/05/20 05:45 ALEXSANDER VALDEZ DO Nov 05, 2020 19:58
[2020-11-05] MEDS: PERCOCET 5MG/325MG TAB PO PRN (20:05)
[2020-11-05] MEDS: **NOTE PATIENT COMMENT** MISC XX SCH (20:05)
[2020-11-05 20:06] VITALS: BP 143/73
[2020-11-06] MEDS: HEPARIN SOD (PORCINE) 5000UNITS/ML 1ML VIAL/SYRINGE SQ SCH (05:31)
[2020-11-06] MEDS: oxyCODONE 5MG TAB PO PRN (05:31)
[2020-11-06 05:58] LABS: HEMATOCRIT 33.6 % (36.0-47.0); HEMOGLOBIN 10.3 g/dl (12.0-15.5); MEAN CORPUSCULAR HEMOGLOBIN 28.1 pg (27.0-33.0); MEAN CORPUSCULAR HGB CONC 30.7 g/dl (32.0-36.5); MEAN CORPUSCULAR VOLUME 91.6 fl (80.0-96.0); PLATELET COUNT, AUTOMATED 390 10^3/uL (150-450); RED BLOOD COUNT 3.67 10^6/uL (4.00-5.40); WHITE BLOOD COUNT 9.9 10^3/uL (4.0-10.0)
[2020-11-06 06:00] VITALS: BP 137/73
[2020-11-06 06:32] LABS: BLOOD UREA NITROGEN 12 MG/DL (7-18); CALCIUM LEVEL 9.4 MG/DL (8.8-10.2); CARBON DIOXIDE LEVEL 30 MEQ/L (21-32); CHLORIDE LEVEL 108 MEQ/L (98-107); CREATININE FOR GFR 0.77 MG/DL (0.55-1.30); GLOMERULAR FILTRATION RATE > 60.0 (>45); GLUCOSE, FASTING 103 MG/DL (70-100); POTASSIUM SERUM 4.1 MEQ/L (3.5-5.1); SODIUM LEVEL 143 MEQ/L (136-145)
[2020-11-06] MEDS: IPRATROPIUM 0.5MG/ALBUTEROL 2.5MG INH SOL UD 3ML (DUONEB) NEB SCH (08:13)
[2020-11-06] MEDS: SYMBICORT 160/4.5MCG INHALER 6GM INH SCH (08:13)
[2020-11-06] MEDS: TIOTROPIUM INHALER/CAPSULE (SPIRIVA) INH SCH (08:13)
[2020-11-06] MEDS: MIRALAX *UNIT DOSE* 17GM PACKET PO SCH (09:00)
[2020-11-06] MEDS: methylPREDNISolone 40MG 1ML VIAL IV SCH (09:00)
[2020-11-06] MEDS: SIMETHICONE 40MG/0.6ML DROPS 30ML PO SCH (09:11)
[2020-11-06] MEDS: HumaLOG INSULIN (NovoLOG) PER UNIT SC SCH ×2 (09:12→12:00)
[2020-11-06] MEDS: PANTOPRAZOLE 40MG TAB (PROTONIX) PO SCH (09:12)
[2020-11-06] MEDS: LIDOCAINE 5% (LIDODERM) PATCH TD SCH (09:13)
[2020-11-06] MEDS: PERCOCET 5MG/325MG TAB PO PRN (09:14)
--- NOTE | 2020-11-06 19:18 | IPNPDOC ---
Subjective Date Seen The patient was seen on 11/06/20. Subjective Chief Complaint/HPI Please see discharge summary written on 11/05 with addendum on 11/06 Patient had anticipated discharge on November 05, 2020. Transportation did not bring a large enough transport for patient. Patient's discharge was delayed to November 06, 2020. This morning, patient feels well and denies any chest pain or dyspnea. She feels ready for rehab, and she will be discharged to [facility]. Objective Physical Examination General Exam: Positive: Alert, Cooperative Eye Exam: Negative: Sclera icteric ENT Exam: Positive: Atraumatic Neck Exam: Positive: Supple Chest Exam: Positive: Clear to auscultation, Normal air movement Heart Exam: Positive: Rate Normal, Regular Rhythm, Normal S1, Normal S2 Telemetry: Positive: No significant arrhythmia Abdomen Exam: Positive: Normal bowel sounds, Soft Neuro Exam: Positive: Normal Speech Psych Exam: Positive: Mental status NL Assessment /Plan Assessment Mrs. Tracy is a 65 year old female with COPD, pulmonary hypertension, and recurrent diverticulitis who presents with large bowel obstruction with bowel necrosis s/p colectomy and ostomy 10/22/20. General surgery following, recommendations appreciated. NGT removed today (10/31/20). Patient is tolerating a solid diet. Otherwise, patient is on Invanz for necrotic bowel, patient complete 14 days of Invanz Patient to go to [facility] today Plan/VTE VTE Prophylaxis Ordered?: Yes VTE Exclusion Pharmacological: Other (surgery) Plan 1. Large bowel obstruction with bowel necrosis s/p colectomy and ostomy formation -Patient starting to have BM -Continues with Entereg -There was necrotic bowel, patient completed 14 days of Invanz 2. COPD -After surgery, patient was kept on ventilator. Patient self extubated -Currently stable, not in acute exacerbation -Continue duonebs, Symbicort, and Tiotropium 3. Chronic hypoxic respiratory failure -Chronically on 2L in the day time an 8L bleed through on BIPAP at night -Close to baseline 4. Hypotension -Resolved -Weaning off steroids 5. Diabetes mellitus type 2 -Sliding scale insulin 6. Chronic diastolic CHF -Not in exacerbation/decompensation -Monitor 7. DVT ppx -Heparin subQ Disposition: Transfer to [facility] today VS, I&O, 24H, Fishbone Vital Signs/I&O Vital Signs Date Time Temp Pulse Resp B/P (MAP) Pulse Ox O2 Delivery O2 Flow Rate FiO2 11/06/20 10:14 18 High Flow Cannula 2.0 11/06/20 09:14 92 11/06/20 06:00 98.9 78 137/73 (94) I&O- Last 24 Hours up to 6 AM 11/06/20 06:00 Intake Total 2010 ml Output Total 1225 ml Balance 785 ml Laboratory Data 24H LABS Laboratory Tests 2 11/05/20 19:56: Bedside Glucose (Misc Panel) 136H 11/06/20 05:21: Nucleated Red Blood Cells % (auto) 0.3H, Anion Gap 5L, Glomerular Filtration Rate > 60.0, Calcium Level 9.4 11/06/20 11:38: Bedside Glucose (Misc Panel) 136H CBC/BMP Laboratory Tests 11/06/20 05:21 ALEXSANDER VALDEZ DO Nov 06, 2020 19:18
== END 2020-11-06 12:15 | DRG 329 ==
LOC: M ED 10:20 → EDBD 10:20 → M ED INP 13:56 → ENRESERV 14:39 → M MSPAV 15:45 → M ICU 10-22 07:22 → M PCU 10-26 00:58 → M MS5PR 10-30 04:14
PROVIDERS: ADMIT Family Medicine; ATTEND Internal Medicine
PROC: 0DBN0ZZ Excision of Sigmoid Colon, Open Approach (ICD-10-PCS; 2020-10-22)
PROC: 0D1M0Z4 Bypass Descending Colon to Cutaneous, Open Approach (ICD-10-PCS; principal; 2020-10-22 02:00)
DX: K56.609 Unspecified intestinal obstruction, unspecified as to partial versus complete obstruction (principal); A41.9 Sepsis, unspecified organism; K55.049 Acute infarction of large intestine, extent unspecified; R65.21 Severe sepsis with septic shock; I50.32 Chronic diastolic (congestive) heart failure; K91.89 Other postprocedural complications and disorders of digestive system; K57.92 Diverticulitis of intestine, part unspecified, without perforation or abscess without bleeding; J96.11 Chronic respiratory failure with hypoxia; Z68.43 Body mass index [BMI] 50.0-59.9, adult; N17.9 Acute kidney failure, unspecified; E87.2 Acidosis; J44.9 Chronic obstructive pulmonary disease, unspecified; I27.20 Pulmonary hypertension, unspecified; E11.9 Type 2 diabetes mellitus without complications; Z99.81 Dependence on supplemental oxygen; Z79.82 Long term (current) 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; Z79.899 Other long term (current) drug therapy; E66.01 Morbid (severe) obesity due to excess calories; I11.0 Hypertensive heart disease with heart failure; K21.9 Gastro-esophageal reflux disease without esophagitis; K44.9 Diaphragmatic hernia without obstruction or gangrene; F17.210 Nicotine dependence, cigarettes, uncomplicated; Z88.2 Allergy status to sulfonamides; Z88.0 Allergy status to penicillin; Z88.8 Allergy status to other drugs, medicaments and biological substances; I27.81 Cor pulmonale (chronic); E87.5 Hyperkalemia; Z79.52 Long term (current) use of systemic steroids; E83.39 Other disorders of phosphorus metabolism

== ENCOUNTER 2020-12-01 21:07 | Emergency (ER) | payer OTHER ==
[~2020-12-01] VITALS: Ht 170.2 cm; Wt 111.4 kg
[~2020-12-01 21:07] MED LIST changes: +INFA20DR3 PO; +INSUDET SC; +INSUHUMDS SC; +LIDO5TD TD; +MIRA1POW3 PO; +MIRA3350 PO; +OXYC-517 PO; +PANT40TA29 PO; +PERCOCET PO; +PRED5TA PO; +SPIR1CAP PO
[2020-12-01 22:53] LABS: BASO # 0.1 10^3/uL (0.0-0.2); BASO % 0.6 % (0.0-1.0); EOS # 0.3 10^3/uL (0.0-0.5); EOS % 2.2 % (0.0-3.0); HEMATOCRIT 37.5 % (36.0-47.0); HEMOGLOBIN 11.6 g/dl (12.0-15.5); LYMPH # 2.5 10^3/uL (1.5-5.0); LYMPH % 19.8 % (24.0-44.0); MEAN CORPUSCULAR HEMOGLOBIN 27.2 pg (27.0-33.0); MEAN CORPUSCULAR HGB CONC 30.9 g/dl (32.0-36.5); MONO # 0.7 10^3/uL (0.0-0.8); MONO % 5.3 % (2.0-8.0); NEUTROPHILS # 8.6 10^3/uL (1.5-8.5); NEUTROPHILS % 69.8 % (36.0-66.0); PLATELET COUNT, AUTOMATED 473 10^3/uL (150-450); RED BLOOD COUNT 4.26 10^6/uL (4.00-5.40); WHITE BLOOD COUNT 12.4 10^3/uL (4.0-10.0)
[2020-12-01 23:11] LABS: ALBUMIN 2.9 GM/DL (3.2-5.2); ALT/SGPT 40 U/L (12-78); BILIRUBIN,DIRECT < 0.1 MG/DL (0.0-0.2); BILIRUBIN,TOTAL 0.2 MG/DL (0.2-1.0); LIPASE 192 U/L (73-393); TOTAL PROTEIN 7.3 GM/DL (6.4-8.2)
[2020-12-01] MEDS ORDERED: MORPHINE 4 MG/ML 1ML VIAL/SYRINGE (J2270) IV PRN (23:30)
[2020-12-01] MEDS ORDERED: ONDANSETRON 4MG/2ML VIAL IV ONE (23:30)
[2020-12-01] MEDS ORDERED: ISOVUE-370 76% 100ML VIAL As Ordered ONE (23:35)
--- NOTE | 2020-12-02 01:23 | REPVR ---
PROCEDURE INFORMATION: Exam: CT Abdomen And Pelvis With Contrast Exam date and time: 12/01/2020 11:48 PM Age: 65 years old Clinical indication: Other: Recent colon resection, abd pain, change in ostomy output TECHNIQUE: Imaging protocol: Computed tomography of the abdomen and pelvis with contrast. Radiation optimization: All CT scans at this facility use at least one of these dose optimization techniques: automated exposure control; mA and/or kV adjustment per patient size (includes targeted exams where dose is matched to clinical indication); or iterative reconstruction. Contrast material: ISOVUE 370; Contrast volume: 100 ml; Contrast route: INTRAVENOUS (IV); COMPARISON: CT ABD PELVIS W/O CONTRAST 10/21/2020 11:[address] abdomen/pelvis with contrast October 20, 2020. FINDINGS: LUNG BASES: Atelectasis and/or pulmonary parenchymal scarring. Mild ground-glass opacities seen at the lung bases may be secondary to mild edema, slight volume loss, or pneumonitis. VASCULAR: Visualized cardiac size is within normal range. Incompletely imaged, approximately 3 cm interatrial septal lipoma incidentally noted. No abdominoaortic aneurysm, dissection, or retroperitoneal hematoma. There is calcified and noncalcified atherosclerosis. No portal venous or inferior vena caval thrombus seen. PERITONEAL : No free air. Trace amount of free fluid seen within the pelvis. GI: No hiatal hernia. The stomach is not sufficiently distended to evaluate wall thickening or for complete diagnostic evaluation by this exam. Non-specific fluid-filled loops of small bowel noted. No significant asymmetric small-bowel dilation to suggest obstruction. Previously seen obstruction has resolved. Mild gastroenteritis cannot be excluded. Small nonspecific mesenteric lymph nodes are noted. Two metallic densities are seen within the anterior pelvis, likely postoperative. There is a descending colostomy in the left lower quadrant. Portions of the colon, including the colostomy segment appear slightly thick-walled. This may be artifactual secondary to insufficient distention but minimal colitis cannot be excluded. Clinical correlation is advised. There is a parastomal herniation of a knuckle of small bowel without evidence of inflammation or obstruction. There is a peristomal wall enhancing fluid collection along the left lateral margin measuring 2.7 by 4.6 x 2.3 cm. Appearance is worrisome for abscess. Mild peristomal stranding of fat noted which could be postoperative or related to inflammation/infection. A rectal stump is noted within the pelvis. Adjacent to the rectal stump, there is an ill-defined focal inflammatory collection with heterogeneous enhancement, measuring approximately 6.1 x 3.4 by 2 cm. This could be secondary to recent postsurgical change, possibly fat necrosis or phlegmon. This is located at the rectal stump suture line and tiny dehiscence can therefore not be entirely excluded. HEPATOBILIARY, PANCREAS, SPLEEN: Hepatic length is 19.2 cm. Attenuation of the liver is consistent with fatty infiltration. A small area of severe focal fatty infiltration is seen adjacent to the falciform ligament. The gallbladder has been removed. No pancreatic inflammation. Spleen not enlarged. ADRENALS, KIDNEYS, BLADDER, RETROPERITONEAL: Adrenals within normal limits. No hydronephrosis. Symmetric renal enhancement. Mild nonspecific perinephric stranding. Hypodense renal lesions again noted, consistent with cysts. No additional imaging workup for these lesions is necessary, based upon this appearance. The urinary bladder appears slightly thick-walled. Mild cystitis cannot be excluded. Correlation with urinalysis and culture for confirmation. PELVIC: No dominant cystic pelvic mass seen. The uterus is not visualized. MUSCULOSKELETAL: There is skin thickening and subcutaneous reticulations along the anterior abdominal wall which could be secondary to recent postsurgical change or cellulitis. A midline anterior abdominal wall subcutaneous defect is noted, measuring 6.4 x 7.4 cm. Degenerative changes of the spine and pelvis noted. IMPRESSION: Postoperative changes, new compared to the most recent prior exam noted. Nonspecific trace amount of free fluid seen within the pelvis. There is been placement of a left lower quadrant descending colostomy. Mild inflammation as well as herniation is seen at the colostomy, as discussed above. A 4.6 cm peristomal fluid collection is noted, worrisome for abscess. Ill-defined 6 cm area of inflammation is seen along the rectal stump suture line. Differential as discussed above. Other gastrointestinal findings to be correlated clinically are discussed above. Correlation with urinalysis and culture if mild cystitis may be a possibility. Anterior abdominal wall postoperative changes, with an open midline wound. Cellulitis cannot be excluded. Other findings discussed above. Electronically signed by: Bert Solo On 12/02/2020 01:23:21 AM
[2020-12-02 02:30] VITALS: BP 135/67
--- NOTE | 2020-12-05 13:07 | ED PDOC ---
Post-Departure Follow-Up radiology report faxed to Mary Ann Ley MD Dec 05, 2020 13:07
== END 2020-12-02 03:17 | disposition home or self-care (01) ==
LOC: M ED 21:07
DX: L76.34 Postprocedural seroma of skin and subcutaneous tissue following other procedure (principal); J44.9 Chronic obstructive pulmonary disease, unspecified; Z87.891 Personal history of nicotine dependence; Z93.3 Colostomy status
CPT/HCPCS: 74177; 80047; 80076; 83690; 85025; 93041; 96374; 96375; 99285; J2270; J2405; Q9967

== ENCOUNTER 2020-12-08 18:01 | Emergency (ER) | payer OTHER ==
[~2020-12-08] VITALS: Ht 170.2 cm; Wt 111.3 kg
--- NOTE | 2020-12-08 19:11 | ECGEPIP ---
[facility] - ED Test Date: 2020-12-08 Pat Name: ELIZABETH BRENNAN Department: Room: - Gender: Female [employer]: : [id number] Requested By: Ivy Ceja Order Number: [id number] Reading MD: Ivy Ceja Measurements Intervals [place] Rate: 95 P: 81 SD: 150 QRS: 52 QRSD: 70 T: 65 QT: 356 QTc: 447 Interpretive Statements Normal sinus rhythm Nonspecific ST T wave changes low qrs voltage limb leads 10/20/[address] T wave changes Electronically Signed on 12-08-2020 19:11:05 EDT by Ivy Ceja
--- NOTE | 2020-12-08 19:15 | REP ---
INDICATION: abdominal pain COMPARISON: 11/04/2020 TECHNIQUE: Portable AP view of the chest FINDINGS: The mediastinum and cardiac silhouette are stable and within normal limits for portable technique. The lung nava are clear without acute consolidation, effusion, or pneumothorax. Skeletal structures are intact. IMPRESSION: No acute cardiopulmonary process appreciated. <Electronically signed by Kai Nguyen > 12/08/20 191
[2020-12-08] MEDS ORDERED: ONDANSETRON 4MG/2ML VIAL IV ONE (20:10)
[2020-12-08 20:45] VITALS: BP 136/71
== END 2020-12-08 22:14 | disposition home or self-care (01) ==
LOC: EDSEX 18:01 → EDBD 18:01 → M ED 19:47
DX: R10.9 Unspecified abdominal pain (principal); R11.0 Nausea; Z71.1 Person with feared health complaint in whom no diagnosis is made; Z93.3 Colostomy status; E11.9 Type 2 diabetes mellitus without complications; I10 Essential (primary) hypertension; J44.9 Chronic obstructive pulmonary disease, unspecified; K21.9 Gastro-esophageal reflux disease without esophagitis; Z88.0 Allergy status to penicillin; Z88.2 Allergy status to sulfonamides; Z88.1 Allergy status to other antibiotic agents; Z88.8 Allergy status to other drugs, medicaments and biological substances; Z79.899 Other long term (current) drug therapy; Z79.4 Long term (current) use of insulin
CPT/HCPCS: 71045; 80047; 87040; 93005; 93041; 96374; 99285; J2405

== ENCOUNTER 2020-12-13 21:32 | Emergency (ER) | payer OTHER ==
[~2020-12-13] VITALS: Ht 170.2 cm; Wt 111.3 kg
[2020-12-13] MEDS ORDERED: BACITRACIN OINTMENT 30GM TUBE TOP ONE (22:45)
[2020-12-13 23:15] VITALS: BP 151/79
== END 2020-12-13 23:30 | disposition home or self-care (01) ==
LOC: M ED 21:32
DX: Z48.01 Encounter for change or removal of surgical wound dressing (principal); I50.9 Heart failure, unspecified; J44.9 Chronic obstructive pulmonary disease, unspecified; K21.9 Gastro-esophageal reflux disease without esophagitis; E11.9 Type 2 diabetes mellitus without complications; F17.200 Nicotine dependence, unspecified, uncomplicated; Z79.4 Long term (current) use of insulin; Z79.51 Long term (current) use of inhaled steroids; Z79.82 Long term (current) 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; Z79.891 Long term (current) use of opiate analgesic; Z79.899 Other long term (current) drug therapy; Z88.0 Allergy status to penicillin; Z88.1 Allergy status to other antibiotic agents; Z88.2 Allergy status to sulfonamides; Z88.8 Allergy status to other drugs, medicaments and biological substances

== ENCOUNTER 2020-12-29 20:49 | Emergency (ER) | payer OTHER ==
[~2020-12-29] VITALS: Ht 170.2 cm; Wt 105.0 kg
[2020-12-29 21:04] VITALS: BP 179/80
[2020-12-29] MEDS ORDERED: ONDA-83 (21:14)
[2020-12-29] MEDS ORDERED: LIDOCAINE 4% CREAM 5GM (LMX4) TOP ONE (22:20)
[2020-12-29] MEDS ORDERED: IPRATROPIUM 0.5MG/ALBUTEROL 2.5MG INH SOL UD 3ML (DUONEB) NEB ONE ×2 (22:20→23:10)
[2020-12-29] MEDS ORDERED: LIDO3CRE14 TOP (22:35)
[2020-12-29] MEDS ORDERED: predniSONE 20 MG TAB PO ONE (23:10)
== END 2020-12-29 23:30 | disposition home or self-care (01) ==
LOC: M ED 20:49
DX: R21 Rash and other nonspecific skin eruption (principal); J44.9 Chronic obstructive pulmonary disease, unspecified; Z88.1 Allergy status to other antibiotic agents; Z88.2 Allergy status to sulfonamides; Z88.8 Allergy status to other drugs, medicaments and biological substances; Z79.899 Other long term (current) drug therapy
CPT/HCPCS: 94640; 99284; J7512

== ENCOUNTER 2021-01-05 18:49 | Emergency (ER) | payer OTHER ==
[~2021-01-05] VITALS: Ht 170.2 cm; Wt 105.5 kg
[~2021-01-05 18:49] MED LIST changes: +LIDO3CRE14 TOP; +OMEP-173; -OMEP-218; +ONDA-83
[2021-01-05 18:50] VITALS: BP 134/87
[2021-01-06] MEDS ORDERED: PRED20TA PO ×2 (02:55→22:48)
[2021-01-06] MEDS ORDERED: DOXY-350 PO (02:55)
[2021-01-06] MEDS ORDERED: MIRA1POW3 PO (22:48)
[2021-01-06] MEDS ORDERED: PANT40TA29 PO (22:48)
[2021-01-06] MEDS ORDERED: SPIR1CAP INH (22:48)
[2021-01-06] MEDS ORDERED: LIDO1PAD TOP (22:48)
[2021-01-06] MEDS ORDERED: HYDR-4571 PO (22:48)
[2021-01-06] MEDS ORDERED: ZOFR4TAB16 PO (22:48)
[2021-01-06] MEDS ORDERED: DOXY-443 PO (22:48)
== END 2021-01-05 21:34 | disposition left against medical advice (07) ==
LOC: M ED 18:49
DX: Z53.21 Procedure and treatment not carried out due to patient leaving prior to being seen by health care provider (principal)

== ENCOUNTER 2021-01-05 22:14 | Emergency (ER) | payer OTHER ==
[~2021-01-05] VITALS: Ht 170.2 cm; Wt 105.5 kg
[~2021-01-05 22:14] MED LIST changes: -OMEP-173; +OMEP-218
--- NOTE | 2021-01-05 23:36 | REPVR ---
PROCEDURE INFORMATION: Exam: XR Chest Exam date and time: 01/05/21 (11:06pm) Age: 65 years old Clinical indication: Cough and dyspnea TECHNIQUE: Imaging protocol: Portable CXR Views: 1 view COMPARISON: Portable CXR of 12/08/20 Portable CXR of 10/24/20 FINDINGS: Lungs: Nonspecific faint hazy opacity again seen at the left lung base. No consolidation. Pleural spaces: Unremarkable. No pleural effusions. No pneumothorax. Heart/Mediastinum: Unremarkable. No cardiomegaly. Bones/joints: Unremarkable. IMPRESSION: No acute findings. Persistent faint hazy nonspecific opacity at the left lung base (unchanged). Electronically signed by: Talya Aponte On 01/05/2021 23:36:26 PM
[2021-01-06] MEDS ORDERED: IPRATROPIUM 0.5MG/ALBUTEROL 2.5MG INH SOL UD 3ML (DUONEB) NEB ONE (00:05)
[2021-01-06 00:08] LABS: ABG BASE EXCESS 2.1 (-2.0-2.0); ABG HCO3 27.5 MEQ/L (22.0-26.0); ABG O2 SATURATION 96.6 % (95.0-99.0); ABG PARTIAL PRESSURE CO2 45.5 mmHg (35.0-45.0); ABG PARTIAL PRESSURE O2 87.5 mmHg (75.0-100.0); ABG STANDARD HCO3 26.3 MEQ/L (22.0-26.0); ABG TOTAL CO2 28.9 MEQ/L (23.0-31.0); ABG pH (ARTERIAL) 7.399 UNITS (7.350-7.450)
[2021-01-06 00:18] LABS: RSV AMPLIFICATION NEGATIVE (NEGATIVE)
[2021-01-06 00:52] LABS: BASO # 0.1 10^3/uL (0.0-0.2); BASO % 0.3 % (0.0-1.0); EOS # 0.1 10^3/uL (0.0-0.5); EOS % 0.5 % (0.0-3.0); HEMATOCRIT 44.7 % (36.0-47.0); HEMOGLOBIN 13.2 g/dl (12.0-15.5); LYMPH # 1.3 10^3/uL (1.5-5.0); MEAN CORPUSCULAR HEMOGLOBIN 25.7 pg (27.0-33.0); MEAN CORPUSCULAR HGB CONC 29.5 g/dl (32.0-36.5); MONO # 0.5 10^3/uL (0.0-0.8); MONO % 2.4 % (2.0-8.0); NEUTROPHILS # 18.9 10^3/uL (1.5-8.5); NEUTROPHILS % 89.5 % (36.0-66.0); PLATELET COUNT, AUTOMATED 370 10^3/uL (150-450); RED BLOOD COUNT 5.14 10^6/uL (4.00-5.40); WHITE BLOOD COUNT 21.2 10^3/uL (4.0-10.0)
[2021-01-06 01:54] LABS: ALBUMIN 3.3 GM/DL (3.2-5.2); ALT/SGPT 29 U/L (12-78); BILIRUBIN,DIRECT 0.1 MG/DL (0.0-0.2); BILIRUBIN,TOTAL 0.4 MG/DL (0.2-1.0); BLOOD UREA NITROGEN 29 MG/DL (7-18); CALCIUM LEVEL 9.3 MG/DL (8.8-10.2); CARBON DIOXIDE LEVEL 27 MEQ/L (21-32); CHLORIDE LEVEL 105 MEQ/L (98-107); CK-MB VALUE MASS < 1.0 NG/ML (<3.6); CPK CREATINE PHOSPHOKINASE 28 U/L (26-192); CREATININE FOR GFR 1.05 MG/DL (0.55-1.30); GLOMERULAR FILTRATION RATE 56.2 (>45); GLUCOSE, FASTING 232 MG/DL (70-100); MB/CK RELATIVE INDEX 3.57 (< OR =4); NT-PRO BNP 159 PG/ML (<125); POTASSIUM SERUM 4.7 MEQ/L (3.5-5.1); SODIUM LEVEL 139 MEQ/L (136-145); TOTAL PROTEIN 6.8 GM/DL (6.4-8.2); TROPONIN I < 0.02 NG/ML (< 0.10)
[2021-01-06] MEDS ORDERED: DOXYCYCLINE HYCLATE 100MG TABLET PO ONE (02:25)
[2021-01-06 02:30] VITALS: BP 128/64
[2021-01-06] MEDS ORDERED: PRED20TA PO ×2 (02:55→22:48)
[2021-01-06] MEDS ORDERED: DOXY-350 PO (02:55)
[2021-01-06] MEDS ORDERED: predniSONE 20 MG TAB PO ONE (02:55)
--- NOTE | 2021-01-06 05:55 | ECGEPIP ---
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
[2021-01-06] MEDS ORDERED: SPIR1CAP INH (22:48)
[2021-01-06] MEDS ORDERED: MIRA1POW3 PO (22:48)
[2021-01-06] MEDS ORDERED: LIDO1PAD TOP (22:48)
[2021-01-06] MEDS ORDERED: ZOFR4TAB16 PO (22:48)
[2021-01-06] MEDS ORDERED: PANT40TA29 PO (22:48)
[2021-01-06] MEDS ORDERED: HYDR-4571 PO (22:48)
[2021-01-06] MEDS ORDERED: DOXY1CAP62 PO (22:48)
== END 2021-01-06 03:25 | disposition home or self-care (01) ==
LOC: M ED 22:14
DX: J18.9 Pneumonia, unspecified organism (principal); K21.9 Gastro-esophageal reflux disease without esophagitis; I50.9 Heart failure, unspecified; Z79.51 Long term (current) use of inhaled steroids; Z79.82 Long term (current) 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; Z79.899 Other long term (current) drug therapy; Z87.891 Personal history of nicotine dependence; Z88.0 Allergy status to penicillin; Z88.1 Allergy status to other antibiotic agents; Z88.2 Allergy status to sulfonamides; Z88.8 Allergy status to other drugs, medicaments and biological substances

== ENCOUNTER 2021-01-06 18:24 | Inpatient (IN) | payer MEDICARE, MEDICAID ==
[~2021-01-06] VITALS: Ht 170.2 cm; Wt 105.5 kg
[~2021-01-06 18:24] MED LIST changes: +DOXY-350 PO
[2021-01-06] MEDS: COMBIVENT RESPIMAT 100-20MCG INHALER 4GM INH SCH ×3 (18:50→23:08)
--- NOTE | 2021-01-06 20:31 | REPVR ---
PROCEDURE INFORMATION: Exam: XR Chest Exam date and time: 01/06/2021 7:54 PM Age: 65 years old Clinical indication: Cough and dyspnea; Additional info: Dyspnea/cough TECHNIQUE: Imaging protocol: XR of the chest. Views: 1 view. COMPARISON: CR PORTABLE CHEST X-RAY 01/05/2021 11:02 PM FINDINGS: Lungs: Stable hazy density left lung base again redemonstrated. Finding likely represents a prominent pericardiac fat pad best demonstrated on the prior abdominal CT of 12/01/2020. Remaining lungs are clear. Pleural spaces: Unremarkable. No pleural effusion. No pneumothorax. Heart/Mediastinum: Unremarkable. No cardiomegaly. Bones/joints: Unremarkable. IMPRESSION: 1. Stable hazy density left lung base again redemonstrated. Finding likely represents a prominent pericardiac fat pad best demonstrated on the prior abdominal CT of 12/01/2020. 2. Remaining lungs are clear. Electronically signed by: jJ Scales On 01/06/2021 20:31:12 PM
[2021-01-06 20:37] LABS: RSV AMPLIFICATION NEGATIVE (NEGATIVE)
[2021-01-06 20:54] LABS: BASO % 0.2 % (0.0-1.0); EOS % 0.1 % (0.0-3.0); HEMATOCRIT 44.1 % (36.0-47.0); HEMOGLOBIN 13.4 g/dl (12.0-15.5); LYMPH # 0.7 10^3/uL (1.5-5.0); LYMPH % 4.3 % (24.0-44.0); MEAN CORPUSCULAR HEMOGLOBIN 26.1 pg (27.0-33.0); MEAN CORPUSCULAR HGB CONC 30.4 g/dl (32.0-36.5); MONO # 0.3 10^3/uL (0.0-0.8); NEUTROPHILS # 14.9 10^3/uL (1.5-8.5); NEUTROPHILS % 91.9 % (36.0-66.0); PLATELET COUNT, AUTOMATED 377 10^3/uL (150-450); RED BLOOD COUNT 5.13 10^6/uL (4.00-5.40); WHITE BLOOD COUNT 16.2 10^3/uL (4.0-10.0)
[2021-01-06 21:32] LABS: ALBUMIN 3.2 GM/DL (3.2-5.2); ALT/SGPT 29 U/L (12-78); BILIRUBIN,DIRECT < 0.1 MG/DL (0.0-0.2); BILIRUBIN,TOTAL 0.3 MG/DL (0.2-1.0); BLOOD UREA NITROGEN 27 MG/DL (7-18); CALCIUM LEVEL 9.7 MG/DL (8.8-10.2); CARBON DIOXIDE LEVEL 27 MEQ/L (21-32); CHLORIDE LEVEL 104 MEQ/L (98-107); CK-MB VALUE MASS < 1.0 NG/ML (<3.6); CPK CREATINE PHOSPHOKINASE 53 U/L (26-192); CREATININE FOR GFR 1.08 MG/DL (0.55-1.30); GLOMERULAR FILTRATION RATE 54.4 (>45); GLUCOSE, FASTING 304 MG/DL (70-100); MB/CK RELATIVE INDEX 1.89 (< OR =4); NT-PRO BNP 199 PG/ML (<125); POTASSIUM SERUM 5.2 MEQ/L (3.5-5.1); SODIUM LEVEL 141 MEQ/L (136-145); THYROID STIMULATING HORMONE 0.153 uIU/ML (0.358-3.740); TROPONIN I < 0.02 NG/ML (< 0.10)
[2021-01-06] MEDS ORDERED: CEFTAROLINE FOSAMIL 600 MG in D5W MINI-BAG PLUS 50 ML IV ONE (21:55)
--- NOTE | 2021-01-06 22:05 | ECGEPIP ---
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
[2021-01-06] MEDS ORDERED: methylPREDNISolone 125MG 2ML VIAL IV STA (22:28)
[2021-01-06] MEDS ORDERED: IPRATROPIUM 0.5MG/ALBUTEROL 2.5MG INH SOL UD 3ML (DUONEB) NEB PRN (22:30)
[2021-01-06] MEDS ORDERED: ACETAMINOPHEN TAB 650MG DOSE (2X325MG) PO PRN (22:30)
[2021-01-06] MEDS ORDERED: MAALOX 30 ML SUSP *UDC PO PRN (22:30)
[2021-01-06] MEDS ORDERED: NS 1,000 ML IV ONE (22:35)
--- NOTE | 2021-01-06 22:35 | HPEPDOC ---
[facility] Medical History & Physical Date of Admission Jan 06, 2021 Date of Service: Jan 06, 2021 Attending Physician: SANIYA PHILIP MD History and Physical CHIEF COMPLAINT: [65 y/o female c/o sob x3 days] HISTORY OF PRESENT ILLNESS: [This is a 65 y/o female with a pmh of chf, dm2, pvd, htn, so on qhs bipap, copd on 2L o2 at home who presents to our ED on 01/06 with a cc of increased sob x3 days. Patient was seen in our ED yesterday for same complaint however improved with steroids and iv abx and thus was discharged home. Patient states that she began to feel worse today and decided to come back to the ED because she believes she needed admitted for breathing treatments. Patient states that she has noticed increased cough productive for thick white sputum. Patient complains of chest tightness that becomes painful when she is coughing or working to breath. Patient also complains of dysuria over the past couple days. Patient states that lately it has been harder to start her stream and that it is painful and foul smelling when she does. Patient states that she has been dribbling urine in her sleep but says that this is her baseline. Patient, at the time of my exam, is denying fevers, chills, hemoptysis, syncope, headache, acute back pain, abd pain, n/v/d/c, pedal edema.] PAST MEDICAL HISTORY: 1. [See HPI PAST SURGICAL HISTORY: 1. [Left cataract removal]. 2. [Appendectomy]. 3. [Cholecystectomy 4. Colostomy 5. Hysterectomy]. SOCIAL HISTORY: Tobacco use:[Former, denies current smoking] ETOH: [Denies] Illicit drug use: [Denies] FAMILY HISTORY: Reviewed - none pertinent ALLERGIES: Please see below. REVIEW OF SYSTEMS: CONSTITUTIONAL: [See HPI]. HEENT: [Denies uri type sx]. CARDIOVASCULAR: [Denies palpitations]. RESPIRATORY: [See HPI]. GASTROINTESTINAL: [See HPI]. GENITOURINARY: [See HPI]. SKIN: [Denies rash]. MUSCULOSKELETAL: [Denies acute joint/back pain]. NEUROLOGICAL: [Denies syncope, paresthesias]. ENDOCRINE: [Hx of DM]. HEMATOLOGIC/LYMPHATIC: [Denies easy bruising]. HOME MEDICATIONS: Please see below. PHYSICAL EXAMINATION: VITAL SIGNS: Please see below. GENERAL APPEARANCE: [This is a 65 y/o female who is alert and oriented to all questioning. She is noticeably sob and has to stop at times to catch her breath while speaking]. HEENT: [No mass or lesion. EOMI. No scleral icterus. Nares patent. Nasal canula in place. Oral mucosa moist.]. CARDIOVASCULAR: [Regular rate, rhythm. No murmurs, rubs, gallops]. LUNGS: [Diffuse inspiratory and expiratory wheezing. Breath sounds decreased b/l.]. ABDOMEN: [Soft, nontender. Left sided colostomy bag noted. There is a clean, dry surgical dressing just inferior to the umbilicus.]. MUSCULOSKELETAL: [No joint deformity noted]. EXTREMITIES: [No pedal edema noted. No overlying skin changes. Pulses intact]. NEUROLOGICAL: [Speech clear. A+Ox3. No focal deficits]. PSYCHIATRIC: [Mood and affect appear appropriate.]. LABORATORY DATA: See below. IMAGING: [CXR: FINDINGS: Lungs: Stable hazy density left lung base again redemonstrated. Finding likely represents a prominent pericardiac fat pad best demonstrated on the prior abdominal CT of 12/01/2020. Remaining lungs are clear. Pleural spaces: Unremarkable. No pleural effusion. No pneumothorax. Heart/Mediastinum: Unremarkable. No cardiomegaly. Bones/joints: Unremarkable. IMPRESSION: 1. Stable hazy density left lung base again redemonstrated. Finding likely represents a prominent pericardiac fat pad best demonstrated on the prior abdominal CT of 12/01/2020. 2. Remaining lungs are clear. ] MICROBIOLOGY: Please see below. ASSESSMENT: [This is a 65 y/o female with a pmh of chf, dm2, pvd, htn, so on qhs bipap, copd on 2L o2 at home who presents to our ED on 01/06 with a cc of increased sob x3 days. Patient was seen in our ED yesterday for same complaint however improved with steroids and iv abx and thus was discharged home. Patient states that she began to feel worse today and decided to come back to the ED. Patient also complains of dysuria over the past couple days.]. . PLAN: 1. [Acute COPD exacerbation - More likely copd, less likely pneumonia d/t clinical presentation and lab values. Likely not chf as patient is not fluid overloaded and bnp is only 199. - Patient borderline meets sepsis criteria with wbc of 16.4, tachypnea of 24, lactic acidosis of 3.9, however these values could be d/t her hypoxia and her being on a steroid taper that began yesterday - Will give 1L fluid bolus, and start empiric cefepime for pseudomonal coverage - Will give 125 solumedrol, begin q8h solumedrol iv - Duonebs q4h juan, xopenex neb q2h prn - continue at home mucinex - Continue at home inhalers - tessalon perles tid as needed - Elevate head of bed - respiratory panel ordered - admit to med surg on tele for tx 2. UTI - Patient complains of dysuria, hesitancy - UA ordered - patient on empiric cefepime 3. CHF - patient not fluid overloaded on exam - continue current lasix, asa 4. GERD - continue protonix 5. Chronic back pain - continue norco 6. DM2 - sliding scale coverage - hypoglycemic protocol DVT prophylaxis - lovenox]. Vital Signs Vital Signs Date Time Temp Pulse Resp B/P (MAP) Pulse Ox O2 Delivery O2 Flow Rate FiO2 01/06/21 19:17 Nasal Cannula 95 01/06/21 18:54 97.9 96 24 192/98 (129) 95 4.0 Laboratory Data Labs 24H Laboratory Tests 2 01/06/21 19:31: Coronavirus (COVID-19)(PCR) NEGATIVE, Influenza Type A (RT-PCR) NEGATIVE, Influenza Type B (RT-PCR) NEGATIVE, Respiratory Syncytial Virus (PCR) NEGATIVE 01/06/21 20:06: POC pH (Misc Panel) 7.352, POC Base Excess (Misc Panel) 3.0, POC Saturated Percent O2 (Misc) 91L, POC pO2 (Misc Panel) 66.0L, POC pCO2 (Misc Panel) 51.7H, POC HCO3 (Misc Panel) 28.7H, POC Total CO2 (Misc Panel) 30.0H 01/06/21 20:28: Immature Granulocyte % (Auto) 1.5, Neutrophils (%) (Auto) 91.9H, Lymphocytes (%) (Auto) 4.3L, Monocytes (%) (Auto) 2.0, Eosinophils (%) (Auto) 0.1, Basophils (%) (Auto) 0.2, Neutrophils # (Auto) 14.9H, Lymphocytes # (Auto) 0.7L, Monocytes # (Auto) 0.3, Eosinophils # (Auto) 0.0, Basophils # (Auto) 0.0, Nucleated Red Blood Cells % (auto) 0.0, Anion Gap 10, Glomerular Filtration Rate 54.4, Lactic Acid Level 3.9*H, Calcium Level 9.7, Total Bilirubin 0.3, Direct Bilirubin < 0.1, Aspartate Amino Transf (AST/SGOT) 12, Alanine Aminotransferase (ALT/SGPT) 29, Alkaline Phosphatase 78, Total Creatine Kinase 53#, Creatine Kinase MB < 1.0, Creatine Kinase MB Relative Index 1.89, Troponin I < 0.02, KG-Jmq-H-Type Natriuretic Peptide 199H, Total Protein 7.0, Albumin 3.2, Albumin/Globulin Ratio 0.8L, Thyroid Stimulating Hormone (TSH) 0.153L CBC/BMP Laboratory Tests 01/06/21 20:28 Microbiology Microbiology 01/06/21 Blood Culture, Received Pending 01/06/21 Blood Culture, Received Pending Home Medications Scheduled Aspirin (Aspirin EC) 81 Mg Tabec, 81 MG PO DAILY Budesonide/Formoterol (Symbicort 160-4.5 Mcg Inhaler) 6 Gm Hfa.aer.ad, 2 PUFF INH BID Doxycycline Monohydrate (Doxycycline Monohydrate) 100 Mg Capsule, 100 MG PO BID STARTED ON 01/06/21 Furosemide (Furosemide) 40 Mg Tab, 40 MG PO DAILY Guaifenesin (Mucinex) 600 Mg Tab.er.12h, 600 MG PO BID Ondansetron HCl (Zofran) 4 Mg Tablet, 4 MG PO DAILY Pantoprazole Sodium (Pantoprazole Sodium) 40 Mg Tablet.dr, 40 MG PO DAILY Polyethylene Glycol 3350 (Miralax) 17 Gm Powd.pack, 17 GM PO BID Prednisone (Prednisone) 20 Mg Tablet, 40 MG PO DAILY STARTED ON 01/06/21 Tiotropium [place] (Spiriva) 18 Mcg Cap.w.dev, 1 INHALATION INH DAILY Scheduled PRN Albuterol Sulf (Albuterol Sulfate) 2.5 Mg/3 Ml Nebu, 2.5 MG INH Q4H PRN for SHORTNESS OF BREATH Albuterol Sulfate (Proair Hfa) 8.5 Gm Hfa.aer.ad, 2 PUFF INH Q4H PRN for SHORTNESS OF BREATH Fluticasone Propionate (Flonase Allergy Relief) 9.9 Ml [place].susp, 2 SPRAYS NA DAILY PRN for NASAL CONGESTION Hydrocodone/Acetaminophen (Hydrocodone-Acetamin 5-325 mg) 1 Each Tablet, 1 TAB PO Q6H PRN for SEVERE PAIN (PS 8-10) Lidocaine (Lidocaine) 5% Adh..patch, 1 PATCH TOP DAILY PRN for MODERATE PAIN (PS 5-7) USES ON LOWER BACK Allergies Coded Allergies: Macrolide Antibiotics (Verified Allergy, Intermediate, ITCHY, HIVES, 01/06/21) HAS TAKEN AZITHROMYCIN W/O PROBLEM Penicillins (Verified Allergy, Intermediate, HIVES, 12/13/20) pt has had cefdinir in the past Quinolones (Verified Allergy, Mild, RASH, 01/06/21) Sulfa (Sulfonamide Antibiotics) (Verified Adverse Reaction, Intermediate, VOMITING, BLISTERS, TACHYCARDIA, 12/13/20) Tetracyclines (Verified Adverse Reaction, Intermediate, TACHYCARDIA, B LISTERS, HIVES, 12/13/20) aripiprazole (Verified Adverse Reaction, Intermediate, TACHYCARDIA, ) metronidazole (Verified Adverse Reaction, Mild, itching, 12/13/20) venlafaxine (Verified Adverse Reaction, Mild, INCREASED HR, 12/13/20) A-FIB/CHADSVASC A-FIB History Current/History of A-Fib/PAF?: No DIMITRI HOPPER Jan 06, 2021 22:35
[2021-01-06] MEDS ORDERED: LIDO1PAD TOP (22:48)
[2021-01-06] MEDS ORDERED: DOXY1CAP62 PO (22:48)
[2021-01-06] MEDS ORDERED: MIRA1POW3 PO (22:48)
[2021-01-06] MEDS ORDERED: HYDR-4571 PO (22:48)
[2021-01-06] MEDS ORDERED: ZOFR4TAB16 PO (22:48)
[2021-01-06] MEDS ORDERED: SPIR1CAP INH (22:48)
[2021-01-06] MEDS ORDERED: PRED20TA PO (22:48)
[2021-01-06] MEDS ORDERED: PANT40TA29 PO (22:48)
[2021-01-06] MEDS ORDERED: HOME MED LIST COMPLETE! XX SCH (22:50)
[2021-01-06] MEDS ORDERED: FLUTICASONE PROP 0.05% NASAL SPRAY 16 GM (FLONASE) PRN (23:00)
[2021-01-06] MEDS ORDERED: ALBUTEROL 90 MCG/ACT 8GM HFA INHALER INH PRN (23:00)
[2021-01-06] MEDS ORDERED: LIDOCAINE 5% (LIDODERM) PATCH TOP PRN (23:00)
[2021-01-06] MEDS ORDERED: BENZONATATE 100 MG CAP PO PRN (23:00)
[2021-01-06] MEDS ORDERED: DEXTROSE 50% 50 ML SYRINGE IV PRN (23:15)
[2021-01-06] MEDS ORDERED: GLUCOSE 4GM CHEW TABLET PO PRN (23:15)
[2021-01-06] MEDS ORDERED: GLUCAGON INJ 1MG VIAL SC PRN (23:15)
[2021-01-07 00:27] LABS: INR 0.92; PARTIAL THROMBOPLASTIN TIME 21.9 SECONDS (25.9-37.0); PROTHROMBIN TIME 12.7 SECONDS (12.7-14.5)
[2021-01-07 01:35] VITALS: BP 136/85
[2021-01-07] MEDS: LEVALBUTEROL 1.25 MG/0.5 ML CONCENTRATE NEB INH PRN ×2 (02:12→06:03)
[2021-01-07] MEDS: MIRALAX *UNIT DOSE* 17GM PACKET PO SCH ×3 (02:33→22:53)
[2021-01-07] MEDS: guaiFENesin ER 600 MG TAB PO SCH ×3 (02:33→22:53)
[2021-01-07] MEDS: NORCO, ANEXSIA 5/325MG TABLET (HYDROcodone/ACETAMINOPHEN) PO PRN (02:34)
[2021-01-07] MEDS: HumaLOG INSULIN (NovoLOG) PER UNIT SC SCH ×5 (02:35→22:54)
[2021-01-07] MEDS ORDERED: NS 1,000 ML IV ONE (03:10)
[2021-01-07] MEDS: IPRATROPIUM 0.5MG/ALBUTEROL 2.5MG INH SOL UD 3ML (DUONEB) NEB SCH ×7 (04:00→23:16)
[2021-01-07] MEDS: methylPREDNISolone 125MG 2ML VIAL IV SCH ×3 (05:52→22:53)
[2021-01-07] MEDS: CEFEPIME HCL 1 GM in D5W 50 ML IV SCH ×2 (05:52→17:49)
[2021-01-07 06:00] VITALS: BP 143/84
[2021-01-07 06:54] LABS: HEMATOCRIT 43.3 % (36.0-47.0); HEMOGLOBIN 12.8 g/dl (12.0-15.5); MEAN CORPUSCULAR HEMOGLOBIN 25.5 pg (27.0-33.0); MEAN CORPUSCULAR HGB CONC 29.6 g/dl (32.0-36.5); MEAN CORPUSCULAR VOLUME 86.3 fl (80.0-96.0); PLATELET COUNT, AUTOMATED 333 10^3/uL (150-450); RED BLOOD COUNT 5.02 10^6/uL (4.00-5.40); WHITE BLOOD COUNT 14.2 10^3/uL (4.0-10.0)
[2021-01-07 07:15] LABS: BLOOD UREA NITROGEN 25 MG/DL (7-18); CALCIUM LEVEL 9.9 MG/DL (8.8-10.2); CARBON DIOXIDE LEVEL 28 MEQ/L (21-32); CHLORIDE LEVEL 107 MEQ/L (98-107); CREATININE FOR GFR 0.95 MG/DL (0.55-1.30); GLOMERULAR FILTRATION RATE > 60.0 (>45); GLUCOSE, FASTING 255 MG/DL (70-100); MAGNESIUM LEVEL 2.5 MG/DL (1.8-2.4); POTASSIUM SERUM 4.8 MEQ/L (3.5-5.1); SODIUM LEVEL 141 MEQ/L (136-145)
[2021-01-07] MEDS ORDERED: SYMBICORT 160/4.5MCG INHALER 6GM INH SCH (08:00)
[2021-01-07] MEDS ORDERED: TIOTROPIUM INHALER/CAPSULE (SPIRIVA) INH SCH (08:00)
[2021-01-07] MEDS: FUROSEMIDE 40 MG TAB PO SCH (08:01)
[2021-01-07] MEDS: ONDANSETRON 4 MG TAB PO SCH (08:01)
[2021-01-07] MEDS: PANTOPRAZOLE 40MG TAB (PROTONIX) PO SCH (08:01)
[2021-01-07] MEDS: ASPIRIN 81MG ENTERIC TABLET PO SCH (08:05)
[2021-01-07] MEDS ORDERED: ENOXAPARIN 30MG/0.3ML SYRINGE (J1650 PER 10MG) SC SCH (09:00)
[2021-01-07 11:07] LABS: APPEARANCE, URINE CLEAR (CLEAR); BACTERIA, URINE AUTO 1+ (NEGATIVE); BILIRUBIN, URINE AUTO NEGATIVE (NEGATIVE); BLOOD, URINE BLOOD NEGATIVE (NEGATIVE); COLOR, URINE YELLOW (YELLOW); GLUCOSE, URINE (UA) AUTO 3+ mg/dL (NEGATIVE); KETONE, URINE AUTO NEGATIVE (NEGATIVE); LEUKOCYTE ESTERASE, URINE AUTO NEGATIVE (NEGATIVE); MUCUS, URINE SMALL (NEGATIVE); NITRITE, URINE AUTO NEGATIVE (NEGATIVE); PROTEIN, URINE AUTO 1+ mg/dL (NEGATIVE); RBC, URINE AUTO 1 /HPF (0-3); SPECIFIC GRAVITY URINE AUTO 1.025 (1.002-1.035); SQUAMOUS EPITHELIAL CELL UR AU 3 /HPF (0-6); UROBILINOGEN, URINE AUTO 0.2 mg/dL (0.0-2.0); WBC, URINE AUTO 1 /HPF (0-3)
[2021-01-07] MEDS: NYSTATIN 100,000 UNITS/GM TOPICAL PWD 15 GM TOP SCH ×2 (13:52→22:54)
[2021-01-07 14:00] VITALS: BP 137/84
--- NOTE | 2021-01-07 16:45 | IPNPDOC ---
Subjective Date Seen The patient was seen on 01/07/21. Subjective Chief Complaint/HPI Patient seen and examined at bedside this morning she reports after receiving nebulizer treatment, steroids she feels a lot better with her breathing. She also report improvement with her urination after receiving antibiotics. Other systems 10 point review of system negative except for what is noted in the HPI. Objective Physical Examination Other physical findings General: Lying in bed, no acute distress, morbidly obese Head/Neck/Throat: Trachea midline, mucous membranes moist Eyes: Sclera anicteric, no erythema or discharge appreciated bilaterally Thorax: Bronchospastic, wheezing bilaterally Cardiovascular: Normal rate, regular rhythm, normal S1, S2; no S3, S4, rub s/gallops/murmurs Abdomen: Bowel sounds present, soft/nontender/nondistended Genitourinary: No CVA tenderness, no Rojas in place Musculoskeletal: Moving all extremities, no edema Skin: Warm, dry Neurologic: AAOx3, speech fluent and goal-directed, no focal deficits, grossly intact Assessment /Plan Plan/VTE VTE Prophylaxis Ordered?: Yes Disposition #Acute on chronic respiratory failure with hypoxemia and hypercapnia -COPD exacerbation with likely underlying obesity hypoventilation syndrome as well as sleep apnea. -Continue with scheduled duo nebs, Levalbuterol as needed, and steroid therapy -She will need to follow-up with pulmonary service as outpatient for sleep studies. -I have ordered a BiPAP to be used as needed and at bedtime. Patient reports that her sister will be bringing in her BiPAP. #Lactic acid -Lactic acidosis secondary to her hypoxemia. There is no clear source of infection as her urine analysis was not consistent with a urinary tract infection. Chest x-ray did not show any acute infiltrates. -Procalcitonin is negative. #Leukocytosis -Reactive from steroids that she has received prior to admission as well as during this hospitalization. Procalcitonin is negative. UA not consistent with urinary tract infection. #UTI -Low suspicion for urinary tract infection as her urine analysis does not show so; stop date to cefepime once blood cx have resulted, suspecting they will be negative. #HFpEF -Echocardiogram done in 2018 showed normal ejection fraction with grade 2 diastolic dysfunction. No signs of acute exacerbation at this time #DM -Follow-up on hemoglobin A1c. Start basal regimen in addition to sliding scale. Hypoglycemic protocol #PVD -Continue aspirin. Not on statin therapy in ambulatory setting. #DVT prophylax -Enoxaparin 40 mg subcu VS, I&O, 24H, Fishbone Vital Signs/I&O Vital Signs Date Time Temp Pulse Resp B/P (MAP) Pulse Ox O2 Delivery O2 Flow Rate FiO2 01/07/21 07:19 95 18 01/07/21 03:04 Nasal Cannula 3.0 01/07/21 00:34 129/63 (85) 94 01/06/21 19:17 95 01/06/21 18:54 97.9 I&O- Last 24 Hours up to 6 AM 01/07/21 06:00 Intake Total 250 ml Balance 250 ml Laboratory Data 24H LABS Laboratory Tests 2 01/06/21 19:31: Coronavirus (COVID-19)(PCR) NEGATIVE, Influenza Type A (RT-PCR) NEGATIVE, Influenza Type B (RT-PCR) NEGATIVE, Respiratory Syncytial Virus (PCR) NEGATIVE 01/06/21 20:06: POC pH (Misc Panel) 7.352, POC Base Excess (Misc Panel) 3.0, POC Saturated Percent O2 (Misc) 91L, POC pO2 (Misc Panel) 66.0L, POC pCO2 (Misc Panel) 51.7H, POC HCO3 (Misc Panel) 28.7H, POC Total CO2 (Misc Panel) 30.0H 01/06/21 20:28: Immature Granulocyte % (Auto) 1.5, Neutrophils (%) (Auto) 91.9H, Lymphocytes (%) (Auto) 4.3L, Monocytes (%) (Auto) 2.0, Eosinophils (%) (Auto) 0.1, Basophils (%) (Auto) 0.2, Neutrophils # (Auto) 14.9H, Lymphocytes # (Auto) 0.7L, Monocytes # (Auto) 0.3, Eosinophils # (Auto) 0.0, Basophils # (Auto) 0.0, Nucleated Red Blood Cells % (auto) 0.0, Anion Gap 10, Glomerular Filtration Rate 54.4, Lactic Acid Level 3.9*H, Calcium Level 9.7, Total Bilirubin 0.3, Direct Bilirubin < 0.1, Aspartate Amino Transf (AST/SGOT) 12, Alanine Aminotransferase (ALT/SGPT) 29, Alkaline Phosphatase 78, Total Creatine Kinase 53#, Creatine Kinase MB < 1.0, Creatine Kinase MB Relative Index 1.89, Troponin I < 0.02, MC-Xch-G-Type Natriuretic Peptide 199H, Total Protein 7.0, Albumin 3.2, Albumin/Globulin Ratio 0.8L, Thyroid Stimulating Hormone (TSH) 0.153L 01/07/21 00:08: Prothrombin Time 12.7, Prothromb Time International Ratio 0.92, Activated Partial Thromboplast Time 21.9L 01/07/21 01:48: Bedside Glucose (Misc Panel) 287H 01/07/21 01:53: Lactic Acid Followup at 4 Hours 3.1*H 01/07/21 06:37: Nucleated Red Blood Cells % (auto) 0.0, Anion Gap 6L, Glomerular Filtration Rate > 60.0, Calcium Level 9.9, Magnesium Level 2.5H CBC/BMP Laboratory Tests 01/06/21 20:28 01/07/21 06:37 Microbiology Microbiology 01/06/21 Blood Culture, Received Pending 01/06/21 Blood Culture, Received Pending SAGRARIO ISRAEL M.D. Jan 07, 2021 07:25
[2021-01-07] MEDS: **NOTE PATIENT COMMENT** MISC XX SCH (21:00)
[2021-01-07 22:00] VITALS: BP 138/78
[2021-01-08] MEDS: IPRATROPIUM 0.5MG/ALBUTEROL 2.5MG INH SOL UD 3ML (DUONEB) NEB SCH ×5 (03:38→19:21)
[2021-01-08 06:00] VITALS: BP 134/74
[2021-01-08 06:09] LABS: HEMATOCRIT 40.9 % (36.0-47.0); HEMOGLOBIN 12.1 g/dl (12.0-15.5); MEAN CORPUSCULAR HEMOGLOBIN 25.5 pg (27.0-33.0); MEAN CORPUSCULAR HGB CONC 29.6 g/dl (32.0-36.5); MEAN CORPUSCULAR VOLUME 86.1 fl (80.0-96.0); PLATELET COUNT, AUTOMATED 337 10^3/uL (150-450); RED BLOOD COUNT 4.75 10^6/uL (4.00-5.40); WHITE BLOOD COUNT 13.4 10^3/uL (4.0-10.0)
[2021-01-08] MEDS: methylPREDNISolone 125MG 2ML VIAL IV SCH ×3 (06:27→23:27)
[2021-01-08] MEDS: CEFEPIME HCL 1 GM in D5W 50 ML IV SCH ×2 (06:27→17:18)
[2021-01-08 06:32] LABS: HEMOGLOBIN A1c 7.6 %
--- NOTE | 2021-01-08 06:32 | IPNPDOC ---
Subjective Date Seen The patient was seen on 01/08/21. Subjective Chief Complaint/HPI Patient was seen and examined at bedside this morning. She reports significant improvement in her breathing. She denies chest pain, shortness of breath, abdominal pain, nausea, vomiting, problems with urination or bowel movements. Overnight no acute events reported. Other systems 10 point review of system is negative except for what is noted in the HPI. Objective Physical Examination Other physical findings General: Lying in bed, no acute distress, morbidly obese Head/Neck/Throat: Trachea midline, mucous membranes moist Eyes: Sclera anicteric, no erythema or discharge appreciated bilaterally Thorax: Wheezing bilaterally in the upper and lower lung nava Cardiovascular: Normal rate, regular rhythm, normal S1, S2; no S3, S4, rubs/gallops/murmurs Abdomen: Bowel sounds present, soft/nontender/nondistended Genitourinary: No CVA tenderness, no Rojas in place Musculoskeletal: Moving all extremities, no edema Skin: Warm, dry Neurologic: AAOx3, speech fluent and goal-directed, no focal deficits, grossly intact Assessment /Plan Plan/VTE VTE Prophylaxis Ordered?: Yes Plan #Acute on chronic respiratory failure with hypoxemia and hypercapnia -COPD exacerbation with likely underlying obesity hypoventilation syndrome as well as sleep apnea. -Continue with scheduled duo nebs, Levalbuterol as needed. We will keep Solu- Medrol 80 mg every 8 for now and begin to taper on 01/09. -She will need to follow-up with pulmonary service as outpatient for sleep studies. -Using BiPAP at bedside. #Lactic acid -Lactic acidosis secondary to her hypoxemia. There is no clear source of infection as her urine analysis was not consistent with a urinary tract infection. Chest x-ray did not show any acute infiltrates. -Procalcitonin is negative. #Leukocytosis -Reactive from steroids that she has received prior to admission as well as during this hospitalization. Procalcitonin is negative. UA not consistent with urinary tract infection. #UTI -Low suspicion for urinary tract infection as her urine analysis does not show so; stop date to cefepime once blood cx have resulted, suspecting they will be negative. #HFpEF -Echocardiogram done in 2018 showed normal ejection fraction with grade 2 diastolic dysfunction. No signs of acute exacerbation at this time #DM -Hemoglobin A1c is 7.6. At the time of discharge she would benefit from Metformin. Start basal regimen in addition to sliding scale. Hypoglycemic protocol #PVD -Continue aspirin. Not on statin therapy in ambulatory setting. #DVT prophylax -Enoxaparin 40 mg subcu VS, I&O, 24H, Fishbone Vital Signs/I&O Vital Signs Date Time Temp Pulse Resp B/P (MAP) Pulse Ox O2 Delivery O2 Flow Rate FiO2 01/07/21 23:18 106 18 01/07/21 22:00 98.0 138/78 (98) 94 NIPPV (BIPAP/CPAP) 8.0 01/06/21 19:17 95 I&O- Last 24 Hours up to 6 AM 01/08/21 06:00 Intake Total 870 ml Output Total 850 ml Balance 20 ml Laboratory Data 24H LABS Laboratory Tests 2 01/07/21 06:33: Procalcitonin <0.05 01/07/21 06:37: Nucleated Red Blood Cells % (auto) 0.0, Anion Gap 6L, Glomerular Filtration Rate > 60.0, Lactic Acid Level 3.5*H, Calcium Level 9.9, Magnesium Level 2.5H 01/07/21 10:03: Urine Color YELLOW, Urine Appearance CLEAR, Urine pH 5.0, Urine Specific [place] 1.025, Urine Protein 1+H, Urine Glucose (Auto)(UA) 3+H, Urine Ketones (Auto) NEGATIVE, Urine Blood NEGATIVE, Urine Nitrite NEGATIVE, Urine Bilirubin NEGATIVE, Urine Urobilinogen 0.2, Urine Leukocyte Esterase (Auto) NEGATIVE, Urine WBC (Auto) 1, Urine RBC (Auto) 1, Urine Hyaline Casts (Auto) 0, Urine Bacteria (Auto) 1+H, Urine Squamous Epithelial Cells 3, Urine Mucus (Auto) SMALL, Urine Sperm (Auto) 01/07/21 11:20: Lactic Acid Followup at 4 Hours 4.2*H 01/07/21 11:29: Bedside Glucose (Misc Panel) 257H 01/07/21 16:44: Bedside Glucose (Misc Panel) 256H 01/07/21 18:16: Bedside Glucose (Misc Panel) 230H 01/07/21 20:49: Bedside Glucose (Misc Panel) 322H 01/08/21 05:49: Nucleated Red Blood Cells % (auto) 0.0 CBC/BMP Laboratory Tests 01/07/21 06:37 01/08/21 05:49 Microbiology Microbiology 01/06/21 Blood Culture - Preliminary, Resulted No growth after 24 hours . All specim... 01/06/21 Blood Culture - Preliminary, Resulted No growth after 24 hours . All specim... SAGRARIO ISRAEL M.D. Jan 08, 2021 06:32
[2021-01-08 06:43] LABS: CREATININE FOR GFR 1.07 MG/DL (0.55-1.30); MAGNESIUM LEVEL 2.7 MG/DL (1.8-2.4); PHOSPHORUS LEVEL 3.5 MG/DL (2.5-4.9)
[2021-01-08] MEDS: MIRALAX *UNIT DOSE* 17GM PACKET PO SCH ×2 (08:30→21:17)
[2021-01-08] MEDS: HumaLOG INSULIN (NovoLOG) PER UNIT SC SCH ×4 (08:30→21:16)
[2021-01-08] MEDS: guaiFENesin ER 600 MG TAB PO SCH ×2 (08:31→21:16)
[2021-01-08] MEDS: FUROSEMIDE 40 MG TAB PO SCH (08:31)
[2021-01-08] MEDS: PANTOPRAZOLE 40MG TAB (PROTONIX) PO SCH (08:31)
[2021-01-08] MEDS: ASPIRIN 81MG ENTERIC TABLET PO SCH (08:31)
[2021-01-08] MEDS: ONDANSETRON 4 MG TAB PO SCH (08:32)
[2021-01-08] MEDS: ENOXAPARIN 40MG/0.4ML SYRINGE (J1650 PER 10MG) SC SCH (08:32)
[2021-01-08] MEDS: NYSTATIN 100,000 UNITS/GM TOPICAL PWD 15 GM TOP SCH ×2 (08:35→21:17)
[2021-01-08 14:00] VITALS: BP 95/74
[2021-01-08 16:00] VITALS: BP 103/70
[2021-01-08] MEDS ORDERED: LEVEMIR (INSULIN DETEMIR) 1 UNITS/0.01ML SC SCH (21:00)
[2021-01-08] MEDS: **NOTE PATIENT COMMENT** MISC XX SCH (21:28)
[2021-01-08 22:00] VITALS: BP 135/69
[2021-01-09] MEDS: IPRATROPIUM 0.5MG/ALBUTEROL 2.5MG INH SOL UD 3ML (DUONEB) NEB SCH ×7 (00:54→22:59)
[2021-01-09] MEDS: NORCO, ANEXSIA 5/325MG TABLET (HYDROcodone/ACETAMINOPHEN) PO PRN (05:22)
[2021-01-09 06:00] VITALS: BP 148/79
[2021-01-09] MEDS: methylPREDNISolone 125MG 2ML VIAL IV SCH ×3 (06:20→23:25)
[2021-01-09 06:44] LABS: HEMATOCRIT 40.2 % (36.0-47.0); MEAN CORPUSCULAR HEMOGLOBIN 25.9 pg (27.0-33.0); MEAN CORPUSCULAR HGB CONC 29.9 g/dl (32.0-36.5); MEAN CORPUSCULAR VOLUME 86.6 fl (80.0-96.0); PLATELET COUNT, AUTOMATED 304 10^3/uL (150-450); RED BLOOD COUNT 4.64 10^6/uL (4.00-5.40); WHITE BLOOD COUNT 10.5 10^3/uL (4.0-10.0)
[2021-01-09] MEDS: CEFEPIME HCL 1 GM in D5W 50 ML IV SCH ×2 (06:58→18:04)
[2021-01-09 07:13] LABS: CALCIUM LEVEL 9.5 MG/DL (8.8-10.2); CREATININE FOR GFR 1.06 MG/DL (0.55-1.30); GLOMERULAR FILTRATION RATE 55.6 (>45); MAGNESIUM LEVEL 2.8 MG/DL (1.8-2.4); PHOSPHORUS LEVEL 3.8 MG/DL (2.5-4.9); POTASSIUM SERUM 5.2 MEQ/L (3.5-5.1)
[2021-01-09] MEDS: guaiFENesin ER 600 MG TAB PO SCH ×2 (08:00→21:32)
[2021-01-09] MEDS: FUROSEMIDE 40 MG TAB PO SCH (08:00)
[2021-01-09] MEDS: PANTOPRAZOLE 40MG TAB (PROTONIX) PO SCH (08:00)
[2021-01-09] MEDS: ASPIRIN 81MG ENTERIC TABLET PO SCH (08:00)
[2021-01-09] MEDS: HumaLOG INSULIN (NovoLOG) PER UNIT SC SCH ×7 (08:00→19:25)
[2021-01-09] MEDS: ENOXAPARIN 40MG/0.4ML SYRINGE (J1650 PER 10MG) SC SCH (08:01)
[2021-01-09] MEDS: MIRALAX *UNIT DOSE* 17GM PACKET PO SCH ×2 (08:01→21:32)
[2021-01-09] MEDS: NYSTATIN 100,000 UNITS/GM TOPICAL PWD 15 GM TOP SCH ×2 (08:02→21:32)
[2021-01-09] MEDS: ONDANSETRON 4 MG TAB PO SCH (08:03)
[2021-01-09 14:00] VITALS: BP 142/74
[2021-01-09] MEDS ORDERED: HumaLOG INSULIN (NovoLOG) PER UNIT SC ONE (19:30)
--- NOTE | 2021-01-09 19:56 | IPNPDOC ---
Subjective Date Seen The patient was seen on 01/09/21. Subjective Chief Complaint/HPI Patient seen and examined at bedside this morning. She reports significant improvement in her breathing's. No acute events reported overnight Other systems 10 point review of system negative except for what is noted in the HPI. Objective Physical Examination Other physical findings General: Lying in bed, no acute distress, morbidly obese Head/Neck/Throat: Trachea midline, mucous membranes moist Eyes: Sclera anicteric, no erythema or discharge appreciated bilaterally Thorax: Clear to auscultation bilaterally Cardiovascular: Normal rate, regular rhythm, normal S1, S2; no S3, S4, rubs/gallops/murmurs Abdomen: Bowel sounds present, soft/nontender/nondistended Genitourinary: No CVA tenderness, no Rojas in place Musculoskeletal: Moving all extremities, no edema Skin: Warm, dry Neurologic: AAOx3, speech fluent and goal-directed, no focal deficits, grossly intact Assessment /Plan Plan/VTE VTE Prophylaxis Ordered?: Yes Plan #Acute on chronic respiratory failure with hypoxemia and hypercapnia -COPD exacerbation with likely underlying obesity hypoventilation syndrome as well as sleep apnea. -Significant improvement in respiratory status -Continue with scheduled duo nebs, Levalbuterol as needed; begin steroid taper. -She will need to follow-up with pulmonary service as outpatient for sleep studies. -Continue with BiPAP as needed and at night #Lactic acid -Lactic acidosis secondary to her hypoxemia. There is no clear source of infection as her urine analysis was not consistent with a urinary tract infection. Chest x-ray did not show any acute infiltrates. -Procalcitonin is negative. #Leukocytosis -Reactive from steroids that she has received prior to admission as well as during this hospitalization. Procalcitonin is negative. UA not consistent with urinary tract infection. #UTI -Low suspicion for urinary tract infection as her urine analysis does not show so; stop date to cefepime once blood cx have resulted, suspecting they will be negative. #HFpEF -Echocardiogram done in 2018 showed normal ejection fraction with grade 2 diastolic dysfunction. No signs of acute exacerbation at this time #DM -Follow-up on hemoglobin A1c. Start basal regimen in addition to sliding scale. Hypoglycemic protocol #PVD -Continue aspirin. Not on statin therapy in ambulatory setting. #DVT prophylax -Enoxaparin 40 mg subcu VS, I&O, 24H, Fishbone Vital Signs/I&O Vital Signs Date Time Temp Pulse Resp B/P (MAP) Pulse Ox O2 Delivery O2 Flow Rate FiO2 01/09/21 05:52 14 01/08/21 22:00 96.9 84 135/69 (91) 92 NIPPV (BIPAP/CPAP) 4.0 01/06/21 19:17 95 I&O- Last 24 Hours up to 6 AM 01/09/21 06:00 Intake Total 770 ml Output Total 350 ml Balance 420 ml Laboratory Data 24H LABS Laboratory Tests 2 01/08/21 11:48: Bedside Glucose (Misc Panel) 264H 01/08/21 16:27: Bedside Glucose (Misc Panel) 314H 01/08/21 20:53: Bedside Glucose (Misc Panel) 402H Microbiology Microbiology 01/06/21 Blood Culture - Preliminary, Resulted No Growth after 48 hours. All Specime... 01/06/21 Blood Culture - Preliminary, Resulted No Growth after 48 hours. All Specime... SAGRARIO ISRAEL M.D. Jan 09, 2021 06:23
[2021-01-09] MEDS ORDERED: LEVEMIR (INSULIN DETEMIR) 1 UNITS/0.01ML SC SCH (21:00)
[2021-01-09] MEDS: **NOTE PATIENT COMMENT** MISC XX SCH (21:43)
[2021-01-09 22:00] VITALS: BP 123/69
[2021-01-10 00:02] VITALS: O2SAT 89
[2021-01-10] MEDS ORDERED: MOM 30ML SUSPENSION UDC PO PRN (00:45)
[2021-01-10] MEDS: IPRATROPIUM 0.5MG/ALBUTEROL 2.5MG INH SOL UD 3ML (DUONEB) NEB SCH ×6 (04:20→23:22)
[2021-01-10] MEDS: CEFEPIME HCL 1 GM in D5W 50 ML IV SCH ×2 (05:35→17:51)
[2021-01-10 06:00] VITALS: BP 150/79
[2021-01-10 06:18] LABS: MEAN CORPUSCULAR HEMOGLOBIN 25.8 pg (27.0-33.0); MEAN CORPUSCULAR VOLUME 85.8 fl (80.0-96.0); PLATELET COUNT, AUTOMATED 279 10^3/uL (150-450); RED BLOOD COUNT 4.66 10^6/uL (4.00-5.40); WHITE BLOOD COUNT 10.9 10^3/uL (4.0-10.0)
[2021-01-10 06:40] LABS: BLOOD UREA NITROGEN 34 MG/DL (7-18); CALCIUM LEVEL 8.9 MG/DL (8.8-10.2); CARBON DIOXIDE LEVEL 32 MEQ/L (21-32); CHLORIDE LEVEL 105 MEQ/L (98-107); CREATININE FOR GFR 0.94 MG/DL (0.55-1.30); GLOMERULAR FILTRATION RATE > 60.0 (>45); GLUCOSE, FASTING 225 MG/DL (70-100); MAGNESIUM LEVEL 2.9 MG/DL (1.8-2.4); PHOSPHORUS LEVEL 3.7 MG/DL (2.5-4.9); POTASSIUM SERUM 4.8 MEQ/L (3.5-5.1); SODIUM LEVEL 140 MEQ/L (136-145)
[2021-01-10] MEDS: methylPREDNISolone 125MG 2ML VIAL IV SCH ×2 (06:49→17:50)
[2021-01-10] MEDS ORDERED: HumaLOG INSULIN (NovoLOG) PER UNIT SC SCH (07:30)
[2021-01-10] MEDS: ASPIRIN 81MG ENTERIC TABLET PO SCH (09:07)
[2021-01-10] MEDS: ONDANSETRON 4 MG TAB PO SCH (09:07)
[2021-01-10] MEDS: guaiFENesin ER 600 MG TAB PO SCH ×2 (09:07→21:36)
[2021-01-10] MEDS: MIRALAX *UNIT DOSE* 17GM PACKET PO SCH ×2 (09:08→21:37)
[2021-01-10] MEDS: ENOXAPARIN 40MG/0.4ML SYRINGE (J1650 PER 10MG) SC SCH (09:08)
[2021-01-10] MEDS: PANTOPRAZOLE 40MG TAB (PROTONIX) PO SCH (09:08)
[2021-01-10] MEDS: FUROSEMIDE 40 MG TAB PO SCH (09:08)
[2021-01-10] MEDS: HumaLOG INSULIN (NovoLOG) PER UNIT SC SCH ×6 (09:09→21:37)
[2021-01-10] MEDS: NYSTATIN 100,000 UNITS/GM TOPICAL PWD 15 GM TOP SCH ×2 (09:10→21:37)
--- NOTE | 2021-01-10 14:51 | IPNPDOC ---
Subjective Date Seen The patient was seen on 01/10/21. Subjective Chief Complaint/HPI Patient seen and examined at bedside this morning. She reports significant improvement in her respiratory status. She denied feeling short of breath, chest pain, abdominal pain, nausea, vomiting, problems with urination or bowel movements. Other systems 10 point review of system was negative except for what is noted in the HPI Objective Physical Examination Other physical findings General: Lying in bed, no acute distress Head/Neck/Throat: Trachea midline, mucous membranes moist Eyes: Sclera anicteric, no erythema or discharge appreciated bilaterally Thorax: Mild bilateral wheezing appreciated bilaterally Cardiovascular: Normal rate, regular rhythm, normal S1, S2; no S3, S4, rubs/gallops/murmurs Abdomen: Bowel sounds present, soft, colostomy bag with stool and gas, ostomy looks healthy. Genitourinary: No CVA tenderness, no Rojas in place Musculoskeletal: Moving all extremities, no edema Skin: Warm, dry Neurologic: AAOx3, speech fluent and goal-directed, no focal deficits, grossly intact Assessment /Plan Assessment #Acute on chronic respiratory failure with hypoxemia and hypercapnia -COPD exacerbation with likely underlying obesity hypoventilation syndrome as well as sleep apnea. -Significant improvement in respiratory status -Continue with scheduled duo nebs, Levalbuterol as needed; begin steroid taper. -She will need to follow-up with pulmonary service as outpatient for sleep studies. -Continue with BiPAP as needed and at night #Lactic acid -Lactic acidosis secondary to her hypoxemia. There is no clear source of infection as her urine analysis was not consistent with a urinary tract infection. Chest x-ray did not show any acute infiltrates. -Procalcitonin is negative. #Leukocytosis -Reactive from steroids that she has received prior to admission as well as during this hospitalization. Procalcitonin is negative. UA not consistent with urinary tract infection. #UTI -Low suspicion for urinary tract infection as her urine analysis does not show so; stop date to cefepime. #HFpEF -Echocardiogram done in 2018 showed normal ejection fraction with grade 2 diastolic dysfunction. No signs of acute exacerbation at this time #DM -Hemoglobin A1c 7.6. Requiring insulin due to high steroid use. At the time of discharge she would probably benefit from Metformin. #PVD -Continue aspirin. Not on statin therapy in ambulatory setting. #DVT prophylax -Enoxaparin 40 mg subcu Plan/VTE VTE Prophylaxis Ordered?: Yes VS, I&O, 24H, Fishbone Vital Signs/I&O Vital Signs Date Time Temp Pulse Resp B/P (MAP) Pulse Ox O2 Delivery O2 Flow Rate FiO2 01/10/21 04:21 60 18 01/10/21 00:02 89 BIPAP/CPAP 4.0 01/09/21 22:00 97.6 123/69 (87) 01/06/21 19:17 95 I&O- Last 24 Hours up to 6 AM 01/10/21 06:00 Intake Total 2330 ml Output Total 250 ml Balance 2080 ml Laboratory Data 24H LABS Laboratory Tests 2 01/09/21 11:55: Bedside Glucose (Misc Panel) 281H 01/09/21 17:11: Bedside Glucose (Misc Panel) 377H 01/09/21 19:02: Bedside Glucose (Misc Panel) 437H 01/09/21 20:41: Bedside Glucose (Misc Panel) 403H 01/10/21 00:01: Bedside Glucose (Misc Panel) 267H 01/10/21 05:48: Nucleated Red Blood Cells % (auto) 0.0 CBC/BMP Laboratory Tests 01/10/21 05:48 Microbiology Microbiology 01/06/21 Blood Culture - Preliminary, Resulted No Growth after 72 hours. All specime... 01/06/21 Blood Culture - Preliminary, Resulted No Growth after 72 hours. All specime... SAGRARIO ISRAEL M.D. Jan 10, 2021 06:39
[2021-01-10] MEDS: **NOTE PATIENT COMMENT** MISC XX SCH (21:00)
[2021-01-10] MEDS: LEVEMIR (INSULIN DETEMIR) 1 UNITS/0.01ML SC SCH (21:36)
[2021-01-10 22:00] VITALS: BP 125/88
[2021-01-11 00:53] VITALS: O2SAT 93
[2021-01-11] MEDS: IPRATROPIUM 0.5MG/ALBUTEROL 2.5MG INH SOL UD 3ML (DUONEB) NEB SCH ×6 (04:15→23:29)
[2021-01-11] MEDS: CEFEPIME HCL 1 GM in D5W 50 ML IV SCH ×2 (05:36→17:31)
[2021-01-11 06:00] VITALS: BP 139/77
[2021-01-11 06:16] LABS: HEMATOCRIT 39.3 % (36.0-47.0); HEMOGLOBIN 11.8 g/dl (12.0-15.5); MEAN CORPUSCULAR HEMOGLOBIN 25.5 pg (27.0-33.0); MEAN CORPUSCULAR VOLUME 85.1 fl (80.0-96.0); PLATELET COUNT, AUTOMATED 266 10^3/uL (150-450); RED BLOOD COUNT 4.62 10^6/uL (4.00-5.40); WHITE BLOOD COUNT 12.3 10^3/uL (4.0-10.0)
[2021-01-11] MEDS: methylPREDNISolone 125MG 2ML VIAL IV SCH (06:38)
[2021-01-11 06:43] LABS: BLOOD UREA NITROGEN 36 MG/DL (7-18); CALCIUM LEVEL 9.2 MG/DL (8.8-10.2); CARBON DIOXIDE LEVEL 33 MEQ/L (21-32); CHLORIDE LEVEL 102 MEQ/L (98-107); CREATININE FOR GFR 0.91 MG/DL (0.55-1.30); GLOMERULAR FILTRATION RATE > 60.0 (>45); GLUCOSE, FASTING 256 MG/DL (70-100); MAGNESIUM LEVEL 2.8 MG/DL (1.8-2.4); PHOSPHORUS LEVEL 3.3 MG/DL (2.5-4.9); POTASSIUM SERUM 4.5 MEQ/L (3.5-5.1); SODIUM LEVEL 139 MEQ/L (136-145)
[2021-01-11] MEDS: ENOXAPARIN 40MG/0.4ML SYRINGE (J1650 PER 10MG) SC SCH (07:54)
[2021-01-11] MEDS: ASPIRIN 81MG ENTERIC TABLET PO SCH (07:54)
[2021-01-11] MEDS: MIRALAX *UNIT DOSE* 17GM PACKET PO SCH ×2 (07:54→21:21)
[2021-01-11] MEDS: PANTOPRAZOLE 40MG TAB (PROTONIX) PO SCH (07:54)
[2021-01-11] MEDS: FUROSEMIDE 40 MG TAB PO SCH (07:55)
[2021-01-11] MEDS: NYSTATIN 100,000 UNITS/GM TOPICAL PWD 15 GM TOP SCH ×2 (07:55→21:22)
[2021-01-11] MEDS: ONDANSETRON 4 MG TAB PO SCH (07:55)
[2021-01-11] MEDS: guaiFENesin ER 600 MG TAB PO SCH ×2 (07:55→21:21)
[2021-01-11] MEDS: HumaLOG INSULIN (NovoLOG) PER UNIT SC SCH ×7 (07:56→21:00)
--- NOTE | 2021-01-11 12:55 | IPNPDOC ---
Subjective Date Seen The patient was seen on 01/11/21. Subjective Chief Complaint/HPI Patient seen and examined at bedside this morning. She reported " feeling great" and denied chest pain, shortness of breath, abdominal pain, nausea, vomiting, problems with urination or bowel movements per Objective Physical Examination Other physical findings General: Lying in bed, no acute distress, morbidly obese Head/Neck/Throat: Trachea midline, mucous membranes moist Eyes: Sclera anicteric, no erythema or discharge appreciated bilaterally Thorax: Clear to auscultation bilaterally, no wheezing, no crackles Cardiovascular: Normal rate, regular rhythm, normal S1, S2; no S3, S4, rubs/gallops/murmurs Abdomen: Bowel sounds present, soft/nontender/nondistended Genitourinary: No CVA tenderness, no Rojas in place Musculoskeletal: Moving all extremities, no edema Skin: Warm, dry Neurologic: AAOx3, speech fluent and goal-directed, no focal deficits, grossly intact Assessment /Plan Plan/VTE VTE Prophylaxis Ordered?: Yes Plan #Acute on chronic respiratory failure with hypoxemia and hypercapnia -COPD exacerbation with likely underlying obesity hypoventilation syndrome as well as sleep apnea. -Significant improvement in respiratory status -Continue with scheduled duo nebs, Levalbuterol as needed; continue with steroid taper -She will need to follow-up with pulmonary service as outpatient for sleep studies. -Continue with BiPAP as needed and at night #Lactic acid -Lactic acidosis secondary to her hypoxemia. There is no clear source of infection as her urine analysis was not consistent with a urinary tract infe ction. Chest x-ray did not show any acute infiltrates. -Procalcitonin is negative. #Leukocytosis -Reactive from steroids that she has received prior to admission as well as during this hospitalization. Procalcitonin is negative. UA not consistent with urinary tract infection. #UTI -Low suspicion for urinary tract infection as her urine analysis does not show so; stop date to cefepime once blood cx have resulted, suspecting they will be negative. #HFpEF -Echocardiogram done in 2018 showed normal ejection fraction with grade 2 diastolic dysfunction. No signs of acute exacerbation at this time #DM -Follow-up on hemoglobin A1c. Start basal regimen in addition to sliding scale. Hypoglycemic protocol #PVD -Continue aspirin. Not on statin therapy in ambulatory setting. #DVT prophylax -Enoxaparin 40 mg subcu VS, I&O, 24H, [place] Vital Signs/I&O Vital Signs Date Time Temp Pulse Resp B/P (MAP) Pulse Ox O2 Delivery O2 Flow Rate FiO2 01/11/21 04:16 63 18 01/11/21 00:53 93 BIPAP/CPAP 4.0 01/10/21 22:00 97.4 125/88 (100) 01/06/21 19:17 95 I&O- Last 24 Hours up to 6 AM 01/11/21 06:00 Intake Total 2020 ml Output Total 50 ml Balance 1970 ml Laboratory Data 24H LABS Laboratory Tests 2 01/10/21 11:33: Bedside Glucose (Misc Panel) 291H 01/10/21 17:02: Bedside Glucose (Misc Panel) 246H 01/10/21 20:14: Bedside Glucose (Misc Panel) 272H 01/11/21 05:42: Nucleated Red Blood Cells % (auto) 0.0 CBC/BMP Laboratory Tests 01/11/21 05:42 Microbiology Microbiology 01/06/21 Blood Culture - Preliminary, Resulted No Growth after 72 hours. All specime... 01/06/21 Blood Culture - Preliminary, Resulted No Growth after 72 hours. All specime... SAGRARIO ISRAEL M.D. Jan 11, 2021 06:30
[2021-01-11 14:00] VITALS: BP 148/84
[2021-01-11 21:00] VITALS: BP 137/79
[2021-01-11] MEDS: **NOTE PATIENT COMMENT** MISC XX SCH (21:00)
[2021-01-11] MEDS: LEVEMIR (INSULIN DETEMIR) 1 UNITS/0.01ML SC SCH (21:21)
[2021-01-12] MEDS: NORCO, ANEXSIA 5/325MG TABLET (HYDROcodone/ACETAMINOPHEN) PO PRN (03:48)
[2021-01-12] MEDS: IPRATROPIUM 0.5MG/ALBUTEROL 2.5MG INH SOL UD 3ML (DUONEB) NEB SCH ×2 (04:01→07:38)
[2021-01-12 05:55] LABS: HEMATOCRIT 42.2 % (36.0-47.0); HEMOGLOBIN 12.8 g/dl (12.0-15.5); MEAN CORPUSCULAR HGB CONC 30.3 g/dl (32.0-36.5); MEAN CORPUSCULAR VOLUME 85.8 fl (80.0-96.0); PLATELET COUNT, AUTOMATED 297 10^3/uL (150-450); RED BLOOD COUNT 4.92 10^6/uL (4.00-5.40); WHITE BLOOD COUNT 16.7 10^3/uL (4.0-10.0)
[2021-01-12 06:00] VITALS: BP 133/84
[2021-01-12 06:27] LABS: BLOOD UREA NITROGEN 39 MG/DL (7-18); CALCIUM LEVEL 8.8 MG/DL (8.8-10.2); CARBON DIOXIDE LEVEL 34 MEQ/L (21-32); CHLORIDE LEVEL 103 MEQ/L (98-107); CREATININE FOR GFR 0.98 MG/DL (0.55-1.30); GLOMERULAR FILTRATION RATE > 60.0 (>45); GLUCOSE, FASTING 158 MG/DL (70-100); MAGNESIUM LEVEL 2.6 MG/DL (1.8-2.4); PHOSPHORUS LEVEL 2.7 MG/DL (2.5-4.9); POTASSIUM SERUM 4.2 MEQ/L (3.5-5.1); SODIUM LEVEL 141 MEQ/L (136-145)
[2021-01-12] MEDS: MIRALAX *UNIT DOSE* 17GM PACKET PO SCH (08:16)
[2021-01-12] MEDS: PANTOPRAZOLE 40MG TAB (PROTONIX) PO SCH (08:16)
[2021-01-12] MEDS: guaiFENesin ER 600 MG TAB PO SCH (08:16)
[2021-01-12] MEDS: FUROSEMIDE 40 MG TAB PO SCH (08:16)
[2021-01-12] MEDS: ASPIRIN 81MG ENTERIC TABLET PO SCH (08:16)
[2021-01-12] MEDS: ONDANSETRON 4 MG TAB PO SCH (08:16)
[2021-01-12] MEDS: HumaLOG INSULIN (NovoLOG) PER UNIT SC SCH ×2 (08:17→08:18)
[2021-01-12] MEDS: NYSTATIN 100,000 UNITS/GM TOPICAL PWD 15 GM TOP SCH (08:18)
[2021-01-12] MEDS: ENOXAPARIN 40MG/0.4ML SYRINGE (J1650 PER 10MG) SC SCH (08:18)
[2021-01-12] MEDS ORDERED: methylPREDNISolone 40MG 1ML VIAL IV SCH (09:00)
[2021-01-12] MEDS ORDERED: METF-838 PO (09:05)
[2021-01-12] MEDS ORDERED: PRED10TA2 PO (09:06)
[2021-01-12] MEDS ORDERED: ANALGESIC BALM CRM 3OZ TOP PRN (09:10)
[2021-01-12] MEDS ORDERED: IPRA0.00 NEB (09:25)
--- NOTE | 2021-01-12 09:43 | DS.PDOC ---
Discharge Summary General Date of Admission Jan 06, 2021 at 18:25 Date of Discharge 01/12/21 Discharge Summary DISCHARGE DIAGNOSES: 1. COPD exacerbation 2. UTI 3. Diabetes mellitus Ms. Schilling, was seen at [facility] for a COPD exacerbation and concerns for urinary tract infection. She was treated with IV antibiotics for her urinary tract infection. Her COPD was treated with nebulizer treatments and intravenous steroids. This helped improve her symptoms significantly. She was discharged home with a pattie roid taper; She was explained in length the side effects of steroids. 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 She endorsed that her nebulizer treatment had broken down but will be having it fixed now. She was instructed on how to take her nebulizer treatments as needed appropriately. During hospitalization, she was also noted to have a hemoglobin A1c of 7.6%. She was started on Metformin for this. She is to follow-up with her primary physician for management of her diabetes Discharge time: 32 minutes Vital Signs/I&Os Vital Signs Date Time Temp Pulse Resp B/P (MAP) Pulse Ox O2 Delivery O2 Flow Rate FiO2 01/12/21 06:00 97.6 81 20 133/84 (100) 95 NIPPV (BIPAP/CPAP) 3.0 01/06/21 19:17 95 I&O- Last 24 Hours up to 6 AM 01/12/21 06:00 Intake Total 2690 ml Output Total 550 ml Balance 2140 ml Physical exam: General: Lying in bed, no acute distress Head/Neck/Throat: Trachea midline, mucous membranes moist Eyes: Sclera anicteric, no erythema or discharge appreciated bilaterally Thorax: Normal respiratory effort on room air, lungs clear to auscultation bilaterally, no wheezes/rales/rhonchi Cardiovascular: Normal rate, regular rhythm, normal S1, S2; no S3, S4, rubs/gallops/murmurs Abdomen: Bowel sounds present, soft/nontender/nondistended. Colostomy bag functioning well. Healthy tissue appreciated with ostomy Genitourinary: No CVA tenderness, no Rojas in place Musculoskeletal: Moving all extremities, no edema. There is no swelling of the knees bilaterally. There is no erythema of the knees Skin: Warm, dry Neurologic: AAOx3, speech fluent and goal-directed, no focal deficits, grossly intact Laboratory Data Labs 24H Laboratory Tests 2 01/11/21 12:03: Bedside Glucose (Misc Panel) 262H 01/11/21 17:00: Bedside Glucose (Misc Panel) 248H 01/11/21 21:18: Bedside Glucose (Misc Panel) 197H 01/12/21 05:37: Nucleated Red Blood Cells % (auto) 0.0, Anion Gap 4L, Glomerular Filtration Rate > 60.0, Calcium Level 8.8, Phosphorus Level 2.7, Magnesium Level 2.6H 01/12/21 09:22: Bedside Glucose (Misc Panel) 159H CBC/BMP Laboratory Tests 01/12/21 05:37 FSBS Laboratory Tests Test 01/11/21 12:03 01/11/21 17:00 01/11/21 21:18 01/12/21 09:22 Range/Units Bedside Glucose (Misc Panel) 262 248 197 159 80-115 MG/DL Microbiology Microbiology 01/06/21 Blood Culture - Final, Complete NO GROWTH AFTER 5 DAYS 01/06/21 Blood Culture - Final, Complete NO GROWTH AFTER 5 DAYS Discharge Medications Scheduled Aspirin (Aspirin EC) 81 Mg Tabec, 81 MG PO DAILY, (Reported) Budesonide/Formoterol (Symbicort 160-4.5 Mcg Inhaler) 6 Gm Hfa.aer.ad, 2 PUFF INH BID, (Reported) Doxycycline Monohydrate (Doxycycline Monohydrate) 100 Mg Capsule, 100 MG PO BID, (Reported) STARTED ON 01/06/21 Furosemide (Furosemide) 40 Mg Tab, 40 MG PO DAILY, (Reported) Guaifenesin (Mucinex) 600 Mg Tab.er.12h, 600 MG PO BID, (Reported) Metformin HCl (Metformin HCl ER) 500 Mg Tab.er.24h, 500 MG PO BID Pantoprazole Sodium (Pantoprazole Sodium) 40 Mg Tablet.dr, 40 MG PO DAILY, (Reported) Polyethylene Glycol 3350 (Miralax) 17 Gm Powd.pack, 17 GM PO BID, (Reported) Prednisone (Prednisone) 10 Mg Tablet, 10 MG PO TAPER Take 4 tabs daily x 3 days, then 3 tabs daily x 3 days, then 2 tabs daily x 3 days, then 1 tab daily x 3 days and stop Tiotropium Western (Spiriva) 18 Mcg Cap.w.dev, 1 INHALATION INH DAILY, (Reported) Scheduled PRN Albuterol Sulf (Albuterol Sulfate) 2.5 Mg/3 Ml Nebu, 2.5 MG INH Q4H PRN for SHORTNESS OF BREATH, (Reported) Albuterol Sulfate (Proair Hfa) 8.5 Gm Hfa.aer.ad, 2 PUFF INH Q4H PRN for SHORTNESS OF BREATH, (Reported) Fluticasone Propionate (Flonase Allergy Relief) 9.9 Ml [place].susp, 2 SPRAYS NA DAILY PRN for NASAL CONGESTION, (Reported) Hydrocodone/Acetaminophen (Hydrocodone-Acetamin 5-325 mg) 1 Each Tablet, 1 TAB PO Q6H PRN for SEVERE PAIN (PS 8-10), (Reported) Lidocaine (Lidocaine) 5% Adh..patch, 1 PATCH TOP DAILY PRN for MODERATE PAIN (PS 5-7), (Reported) USES ON LOWER BACK Allergies Coded Allergies: Macrolide Antibiotics (Verified Allergy, Intermediate, ITCHY, HIVES, 01/06/21) HAS TAKEN AZITHROMYCIN W/O PROBLEM Penicillins (Verified Allergy, Intermediate, HIVES, 12/13/20) pt has had cefdinir in the past Quinolones (Verified Allergy, Mild, RASH, 01/06/21) Sulfa (Sulfonamide Antibiotics) (Verified Adverse Reaction, Intermediate, VOMITING, BLISTERS, TACHYCARDIA, 12/13/20) Tetracyclines (Verified Adverse Reaction, Intermediate, TACHYCARDIA, BLISTERS, HIVES, 12/13/20) aripiprazole (Verified Adverse Reaction, Intermediate, TACHYCARDIA, 12/13/20) metronidazole (Verified Adverse Reaction, Mild, itching, 12/13/20) venlafaxine (Verified Adverse Reaction, Mild, INCREASED HR, 12/13/20) SAGRARIO ISRAEL M.D. Jan 12, 2021 09:32
== END 2021-01-12 10:47 | disposition home or self-care (01) | DRG 191 ==
LOC: EDBD 18:24 → M ED 18:24 → M ED INP 18:25 → M MSPAV 01-07 01:40
PROVIDERS: ADMIT Family Medicine; ATTEND Internal Medicine
DX: J44.1 Chronic obstructive pulmonary disease with (acute) exacerbation (principal); E87.2 Acidosis; E66.2 Morbid (severe) obesity with alveolar hypoventilation; I50.32 Chronic diastolic (congestive) heart failure; K21.9 Gastro-esophageal reflux disease without esophagitis; Z79.52 Long term (current) use of systemic steroids; Z79.82 Long term (current) 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; Z79.899 Other long term (current) drug therapy; Z87.891 Personal history of nicotine dependence; Z88.0 Allergy status to penicillin; Z88.1 Allergy status to other antibiotic agents; Z88.2 Allergy status to sulfonamides; Z88.8 Allergy status to other drugs, medicaments and biological substances; E11.51 Type 2 diabetes mellitus with diabetic peripheral angiopathy without gangrene; Z98.42 Cataract extraction status, left eye; D72.829 Elevated white blood cell count, unspecified

== ENCOUNTER 2021-02-18 20:07 | Inpatient (IN) | payer MEDICARE, MEDICAID ==
[~2021-02-18] VITALS: Ht 170.2 cm; Wt 110.4 kg
[~2021-02-18 20:07] MED LIST changes: +DOXY1CAP62 PO; +HYDR-4571 PO; +IPRA0.00 NEB; +LIDO1PAD TOP; +METF-838 PO; +SPIR1CAP INH; +ZOFR4TAB16 PO
[2021-02-18] MEDS ORDERED: IPRATROPIUM 0.5MG/ALBUTEROL 2.5MG INH SOL UD 3ML (DUONEB) NEB PRN (20:25)
[2021-02-18] MEDS ORDERED: methylPREDNISolone 125MG 2ML VIAL IV ONE (20:25)
[2021-02-18 20:38] LABS: ABG pH (ARTERIAL) 7.371 UNITS (7.350-7.450)
[2021-02-18 20:39] LABS: ABG BASE EXCESS 0.1 (-2.0-2.0); ABG HCO3 25.7 MEQ/L (22.0-26.0); ABG O2 SATURATION 93.3 % (95.0-99.0); ABG PARTIAL PRESSURE CO2 45.4 mmHg (35.0-45.0); ABG PARTIAL PRESSURE O2 69.2 mmHg (75.0-100.0); ABG STANDARD HCO3 24.5 MEQ/L (22.0-26.0); ABG TOTAL CO2 27.1 MEQ/L (23.0-31.0)
[2021-02-18 20:45] LABS: BASO # 0.1 10^3/uL (0.0-0.2); BASO % 0.7 % (0.0-1.0); EOS # 0.3 10^3/uL (0.0-0.5); EOS % 2.7 % (0.0-3.0); HEMATOCRIT 40.8 % (36.0-47.0); HEMOGLOBIN 12.4 g/dl (12.0-15.5); LYMPH # 3.1 10^3/uL (1.5-5.0); LYMPH % 32.1 % (24.0-44.0); MEAN CORPUSCULAR HGB CONC 30.4 g/dl (32.0-36.5); MEAN CORPUSCULAR VOLUME 85.5 fl (80.0-96.0); MONO # 0.5 10^3/uL (0.0-0.8); MONO % 5.4 % (2.0-8.0); NEUTROPHILS # 5.6 10^3/uL (1.5-8.5); NEUTROPHILS % 57.3 % (36.0-66.0); PLATELET COUNT, AUTOMATED 293 10^3/uL (150-450); RED BLOOD COUNT 4.77 10^6/uL (4.00-5.40); WHITE BLOOD COUNT 9.7 10^3/uL (4.0-10.0)
--- NOTE | 2021-02-18 21:08 | REPVR ---
PROCEDURE INFORMATION: Exam: XR Chest Exam date and time: 02/18/2021 8:40 PM Age: 65 years old Clinical indication: Other: Dyspnea; Additional info: Dyspnea/cough TECHNIQUE: Imaging protocol: XR of the chest. Views: 1 view. COMPARISON: CR PORTABLE CHEST X-RAY 01/06/2021 7:47 PM FINDINGS: Lungs: Unremarkable. No consolidation. Pleural spaces: Unremarkable. No pleural effusion. No pneumothorax. Heart/Mediastinum: Unremarkable. No cardiomegaly. Bones/joints: Unremarkable. IMPRESSION: No acute findings. Electronically signed by: Jj Scales On 02/18/2021 21:07:55 PM
[2021-02-18 21:37] LABS: D-DIMER QUANT 793.6 ng/ml (<500); INR 0.9; PARTIAL THROMBOPLASTIN TIME 24.5 SECONDS (25.9-37.0); PROTHROMBIN TIME 12.5 SECONDS (12.7-14.5)
[2021-02-18 21:45] LABS: ALBUMIN 3.1 GM/DL (3.2-5.2); ALT/SGPT 70 U/L (12-78); BILIRUBIN,DIRECT < 0.1 MG/DL (0.0-0.2); BILIRUBIN,TOTAL 0.4 MG/DL (0.2-1.0); BLOOD UREA NITROGEN 8 MG/DL (7-18); CALCIUM LEVEL 9.6 MG/DL (8.8-10.2); CARBON DIOXIDE LEVEL 29 MEQ/L (21-32); CHLORIDE LEVEL 107 MEQ/L (98-107); CK-MB VALUE MASS < 1.0 NG/ML (<3.6); CPK CREATINE PHOSPHOKINASE 61 U/L (26-192); CREATININE FOR GFR 0.86 MG/DL (0.55-1.30); GLOMERULAR FILTRATION RATE > 60.0 (>45); GLUCOSE, FASTING 203 MG/DL (70-100); MB/CK RELATIVE INDEX 1.64 (< OR =4); NT-PRO BNP 59 PG/ML (<125); POTASSIUM SERUM 5.3 MEQ/L (3.5-5.1); SODIUM LEVEL 142 MEQ/L (136-145); TOTAL PROTEIN 6.8 GM/DL (6.4-8.2); TROPONIN I < 0.02 NG/ML (< 0.10)
--- NOTE | 2021-02-18 23:55 | REPVR ---
PROCEDURE INFORMATION: Exam: CTA Chest With Contrast Exam date and time: 02/18/2021 11:02 PM Age: 65 years old Clinical indication: Pain; Chest pressure; Additional info: Chest pain, SOB TECHNIQUE: Imaging protocol: Computed tomographic angiography of the chest with contrast. 3D rendering (Not supervised by radiologist): MIP and/or 3D reconstructed images were created by the technologist. Radiation optimization: All CT scans at this facility use at least one of these dose optimization techniques: automated exposure control; mA and/or kV adjustment per patient size (includes targeted exams where dose is matched to clinical indication); or iterative reconstruction. Contrast material: ISOVUE 370; Contrast volume: 75 ml; Contrast route: INTRAVENOUS (IV); COMPARISON: CT ANGIO CHEST 06/20/2020 9:22 AM FINDINGS: Pulmonary arteries: Peripheral pulmonary artery evaluation limited by cardiac and respiratory motion artifact. Central pulmonary arteries show no intraluminal defect suggestive of clot. Aorta: No thoracic aortic aneurysm or dissection. Great vessels off aortic arch: Atherosclerotic calcifications in the coronary vessels. Lungs: Pulmonary vascular/interstitial pattern does not suggest active pulmonary edema. Centrilobular emphysema changes are present with apical predominance and areas of parenchymal scarring. Bronchiectasis and fibrosis is present the posterior right lung base, without identifiable underlying mass. No evidence of pneumonia or central endobronchial lesion. Pleural spaces: No pleural effusion or pneumothorax. Heart: No overt cardiac enlargement or abnormal volume of pericardial fluid. Lymph nodes: No enlarged mediastinal lymph nodes. Liver: Liver is enlarged and decreased in density suggesting hepatic steatosis. Bones/joints: Bony structures show no acute fracture or destructive process. Soft tissues: Unremarkable. IMPRESSION: 1. No evidence of acute, central pulmonary embolus. Peripheral pulmonary arterial evaluation is limited by cardiac and respiratory motion artifact. 2. Centrilobular emphysema with basilar bronchiectasis and fibrosis. No active pneumonia Electronically signed by: Kameron Harper On 02/18/2021 23:55:08 PM
--- NOTE | 2021-02-18 23:56 | REPVR ---
PROCEDURE INFORMATION: Exam: US Duplex Lower Extremity Veins, Bilateral Exam date and time: 02/18/2021 11:34 PM Age: 65 years old Clinical indication: Pain; Leg, lower; Bilateral; Additional info: Leg pain R/O dvt TECHNIQUE: Imaging protocol: Real-time duplex ultrasound of the extremities with 2-D romero scale, color Doppler flow and spectral waveform analysis with image documentation. Complete exam focused on the bilateral lower extremity veins. COMPARISON: CT ABD/PEL W/IV CONTRAST ONLY 12/01/2020 11:33 PM FINDINGS: Right deep veins: Common femoral, femoral, proximal profunda femoral and popliteal veins are patent without thrombus. Normal Doppler waveforms. Normal compressibility and/or augmentation response. Right superficial veins: Saphenofemoral junction is patent without thrombus. Left deep veins: Common femoral, femoral, proximal profunda femoral and popliteal veins are patent without thrombus. Normal Doppler waveforms. Normal compressibility and/or augmentation response. Left superficial veins: Saphenofemoral junction is patent without thrombus. Soft tissues: No abnormal focal fluid collection. IMPRESSION: No evidence of deep vein thrombosis from common femoral through popliteal levels. Calf veins are not visualized. Electronically signed by: Kameron Harper On 02/18/2021 23:56:01 PM
[2021-02-19] MEDS ORDERED: GLUCAGON INJ 1MG VIAL SC PRN (00:50)
[2021-02-19] MEDS ORDERED: MOM 30ML SUSPENSION UDC PO PRN (00:50)
[2021-02-19] MEDS ORDERED: ACETAMINOPHEN TAB 650MG DOSE (2X325MG) PO PRN (00:50)
[2021-02-19] MEDS ORDERED: DEXTROSE 50% 50 ML SYRINGE IV PRN (00:50)
[2021-02-19] MEDS ORDERED: LEVALBUTEROL 1.25 MG/0.5 ML CONCENTRATE NEB NEB PRN (00:50)
[2021-02-19] MEDS ORDERED: MAALOX 30 ML SUSP *UDC PO PRN (00:50)
[2021-02-19] MEDS ORDERED: GLUCOSE 4GM CHEW TABLET PO PRN (00:50)
--- NOTE | 2021-02-19 00:57 | HPEPDOC ---
[facility] Medical History & Physical Date of Admission Feb 19, 2021 Date of Service: Feb 19, 2021 Attending Physician: MARILYN CARO MD History and Physical CHIEF COMPLAINT: [ sob] HISTORY OF PRESENT ILLNESS: [This is a 65 y/o female with a pmh of chf, dm2, pvd, htn, jignesh on qhs bipap, copd on 2L o2 at home who presents to our ED on 02/18 with a cc of uri type sx and sob that has been worsening for approximately 2 weeks. Patient was recently admitted to our hospital service from 01/06-01/12 of this year also with a copd exacerbation. Patient tells me that she believes that she asked to leave the hospital too early at that time as she believes that she did not fully recover from that exacerbation. Patient tells me that her symptoms have gotten worse the past 2 weeks or so, however, and is currently ex periencing severe chest congestion associated with cough productive of white sputum. Patient states that her breathing has also been worse and is routinely using her at home nebulizer but states that it helps her wheezing greatly. Patient tells me that she began to experience some chest pains about 2-3 days ago associated with her cough and breathing but states that she has had this before so she is not greatly concerned about it. Patient admits to some associated subjective fevers, poor appetite. Patient denies any chills, palpitations, syncope, abd pain, n/v, hemoptysis, pedal edema, calf pain.] PAST MEDICAL HISTORY: 1. [See HPI PAST SURGICAL HISTORY: 1. [Left cataract removal]. 2. [Appendectomy]. 3. [Cholecystectomy 4. Colostomy 5. Hysterectomy]. SOCIAL HISTORY: Tobacco use:[Former, denies current smoking] ETOH: [Denies] Illicit drug use: [Denies] FAMILY HISTORY: Reviewed - none pertinent ALLERGIES: Please see below. REVIEW OF SYSTEMS: CONSTITUTIONAL: [See HPI]. HEENT: [Admits to congestion, rhinorrhea.]. CARDIOVASCULAR: [Denies palpitations]. RESPIRATORY: [See HPI]. GASTROINTESTINAL: [See HPI]. GENITOURINARY: [See HPI]. SKIN: [Denies rash]. MUSCULOSKELETAL: [Denies acute joint/back pain]. NEUROLOGICAL: [Denies syncope, paresthesias]. ENDOCRINE: [Hx of DM]. HEMATOLOGIC/LYMPHATIC: [Denies easy bruising]. HOME MEDICATIONS: Please see below. PHYSICAL EXAMINATION: VITAL SIGNS: Please see below. GENERAL APPEARANCE: [This is a 65 y/o female who is alert and oriented to all questioning. She is noticeably sob but does not appear to be in distress]. HEENT: [No mass or lesion. EOMI. No scleral icterus. Nares patent. Nasal canula in place. Oral mucosa moist.]. CARDIOVASCULAR: [Regular rate, rhythm. No murmurs, rubs, gallops]. LUNGS: [Diffuse inspiratory and expiratory wheezing. Breath sounds decreased b/l.]. ABDOMEN: [Soft, nontender. Left sided colostomy bag noted. There is a clean, dry surgical dressing just inferior to the umbilicus.]. MUSCULOSKELETAL: [No joint deformity noted]. EXTREMITIES: [No pedal edema noted. No overlying skin changes. Pulses intact]. NEUROLOGICAL: [Speech clear. A+Ox3. No focal deficits]. PSYCHIATRIC: [Mood and affect appear appropriate.]. LABORATORY DATA: See below. IMAGING: [CXR: FINDINGS: Lungs: Unremarkable. No consolidation. Pleural spaces: Unremarkable. No pleural effusion. No pneumothorax. Heart/Mediastinum: Unremarkable. No cardiomegaly. Bones/joints: Unremarkable. IMPRESSION: No acute findings. Vascular US: FINDINGS: Right deep veins: Common femoral, femoral, proximal prof unda femoral and popliteal veins are patent without thrombus. Normal Doppler waveforms. Normal compressibility and/or augmentation response. Right superficial veins: Saphenofemoral junction is patent without thrombus. Left deep veins: Common femoral, femoral, proximal profunda femoral and poplit eal veins are patent without thrombus. Normal Doppler waveforms. Normal compressibility and/or augmentation response. Left superficial veins: Saphenofemoral junction is patent without thrombus. Soft tissues: No abnormal focal fluid collection. IMPRESSION: No evidence of deep vein thrombosis from common femoral through popliteal levels. Calf veins are not visualized. CTA Chest: FINDINGS: Pulmonary arteries: Peripheral pulmonary artery evaluation limited by cardiac and respiratory motion artifact. Central pulmonary arteries show no intraluminal defect suggestive of clot. Aorta: No thoracic aortic aneurysm or dissection. Great vessels off aortic arch: Atherosclerotic calcifications in the coronary vessels. Lungs: Pulmonary vascular/interstitial pattern does not suggest active pulmonary edema. Centrilobular emphysema changes are present with apical predominance and areas of parenchymal scarring. Bronchiectasis and fibrosis is present the posterior right lung base, without identifiable underlying mass. No evidence of pneumonia or central endobronchial lesion. Pleural spaces: No pleural effusion or pneumothorax. Heart: No overt cardiac enlargement or abnormal volume of pericardial fluid. Lymph nodes: No enlarged mediastinal lymph nodes. Liver: Liver is enlarged and decreased in density suggesting hepatic steatosis. Bones/joints: Bony structures show no acute fracture or destructive process. Soft tissues: Unremarkable. IMPRESSION: 1. No evidence of acute, central pulmonary embolus. Peripheral pulmonary arterial evaluation is limited by cardiac and respiratory motion artifact. 2. Centrilobular emphysema with basilar bronchiectasis and fibrosis. No active pneumonia ] MICROBIOLOGY: Please see below. ASSESSMENT: [This is a 65 y/o female with a pmh of chf, dm2, pvd, htn, jignesh on qhs bipap, copd on 2L o2 at home who presents to our ED on 02/18 with a cc of uri type sx and sob that has been worsening for approximately 2 weeks. Patient was recently admitted to our hospital service from 01/06-01/12 of this year also with a copd exacerbation.]. . PLAN: 1. [Acute COPD exacerbation - Patient had slight elevation in ddimer, however cta was negative for pe and duplex us was negative for dvt in lower extremities - patient has lactic acidosis of 2.7 in the ed as well as tachycardia and tachypnea, however these symptoms are more likely d/t her hypoxia and copd exacerbation. Will order procal to r/o infection and hold off on abx for now - Patient received 125mg of solumedrol in the ed, will switch to 80mg iv q8 on the floor - scheduled duonebs, prn xopenex - patient on chronic 2L supplemental o2 - now requiring 3L - will titrate supplemental o2 to maintain saturation of 88-92 - will continue at home nightly mucinex dose and add prn tablets throughout the day - continue at home inhalers - continuous pulse oximetry and telemetry d/t tachycardia - admit to med surge for tx 2. JIGNESH - continue at home bipap qhs 3. CHF - patient not fluid overloaded on exam - continue current lasix, asa 4. GERD - continue protonix 5. Chronic back pain - continue norco, tramadol 6. DM2 - sliding scale coverage - hypoglycemic protocol 7. Class 2 obesity -complicates care DVT prophylaxis - lovenox]. Vital Signs Vital Signs Date Time Temp Pulse Resp B/P (MAP) Pulse Ox O2 Delivery O2 Flow Rate FiO2 02/18/21 22:07 97.9 96 18 94 Nasal Cannula 3.0 02/18/21 22:00 131/61 (84) Laboratory Data Labs 24H Laboratory Tests 2 02/18/21 20:28: Immature Granulocyte % (Auto) 1.8, Neutrophils (%) (Auto) 57.3, Lymphocytes (%) (Auto) 32.1, Monocytes (%) (Auto) 5.4, Eosinophils (%) (Auto) 2.7, Basophils (%) (Auto) 0.7, Neutrophils # (Auto) 5.6, Lymphocytes # (Auto) 3.1, Monocytes # (Auto) 0.5, Eosinophils # (Auto) 0.3, Basophils # (Auto) 0.1, Nucleated Red Blood Cells % (auto) 0.0, Blood Gas Bicarbonate Standard 24.5, Arterial Blood pH 7.371, Arterial Blood Partial Pressure CO2 45.4H, Arterial Blood Partial Press ure O2 69.2L, Arterial Blood Total CO2 27.1, Arterial Blood HCO3 25.7, Arterial Blood Base Excess 0.1, Arterial Blood Oxygen Saturation 93.3L, Anion Gap 6L, Glomerular Filtration Rate > 60.0, Lactic Acid Level 2.7*H, Calcium Level 9.6, Total Bilirubin 0.4, Direct Bilirubin < 0.1, Aspartate Amino Transf (AST/SGOT) 41H, Alanine Aminotransferase (ALT/SGPT) 70, Alkaline Phosphatase 79, Total Creatine Kinase 61, Creatine Kinase MB < 1.0, Creatine Kinase MB Relative Index 1.64, Troponin I < 0.02, FD-Wys-N-Type Natriuretic Peptide 59, Total Protein 6.8, Albumin 3.1L, Albumin/Globulin Ratio 0.8L, Thyroid Stimulating Hormone (TSH) 1.770 02/18/21 20:31: Prothrombin Time 12.5, Prothromb Time International Ratio 0.90, Activated Partial Thromboplast Time 24.5L, D-Dimer, Quantitative 793.6H CBC/BMP Laboratory Tests 02/18/21 20:28 Microbiology Microbiology 02/18/21 Respiratory Virus Panel (PCR) (JOHNNY) - Final, Complete 02/18/21 Blood Culture, Received Pending 02/18/21 Blood Culture, Received Pending Home Medications Scheduled Aspirin (Aspirin EC) 81 Mg Tabec, 81 MG PO DAILY Budesonide/Formoterol (Symbicort 160-4.5 Mcg Inhaler) 6 Gm Hfa.aer.ad, 2 PUFF INH BID Furosemide (Furosemide) 40 Mg Tab, 40 MG PO DAILY Guaifenesin (Tussin) 100 Mg/5 Ml Liquid, 10 ML PO QHS Metformin HCl (Metformin HCl ER) 500 Mg Tab.er.24h, 500 MG PO BID Pantoprazole Sodium (Pantoprazole Sodium) 40 Mg Tablet.dr, 40 MG PO DAILY Prednisone (Prednisone) 20 Mg Tablet, 2 TAB PO DAILY Scheduled PRN Albuterol Sulfate (Proair Hfa) 8.5 Gm Hfa.aer.ad, 2 PUFFS INH Q4H PRN for SHORTNESS OF BREATH Fluticasone Propionate (Flonase Allergy Relief) 9.9 Ml [place].susp, 2 SPRAYS NA DAILY PRN for NASAL CONGESTION Hydrocodone/Acetaminophen (Hydrocodone-Acetamin 5-325 mg) 1 Each Tablet, 1 TAB PO Q6H PRN for SEVERE PAIN (PS 8-10) Ipratropium/Albuterol Sulfate (Iprat-Albut 0.5-3(2.5) mg/3 ml) 3 Ml Ampul.neb, 3 ML INH Q6H PRN for SHORTNESS OF BREATH Lidocaine (Lidocaine) 5% Adh..patch, 1 PATCH TOP DAILY PRN for MODERATE PAIN (PS 5-7) USES ON LOWER BACK Ondansetron HCl (Zofran) 4 Mg Tablet, 4 MG PO DAILY PRN for NAUSEA Polyethylene Glycol 3350 (Miralax) 17 Gm Powd.pack, 17 GM PO BID PRN for CONSTI PATION Tramadol HCl (Tramadol HCl) 50 Mg Tablet, 50 MG PO Q6H PRN for BACK PAIN Allergies Coded Allergies: Macrolide Antibiotics (Verified Allergy, Intermediate, ITCHY, HIVES, 02/18/21) HAS TAKEN AZITHROMYCIN W/O PROBLEM Penicillins (Verified Allergy, Intermediate, HIVES, 02/18/21) pt has had cefdinir in the past Quinolones (Verified Allergy, Mild, RASH, 02/18/21) Sulfa (Sulfonamide Antibiotics) (Verified Adverse Reaction, Intermediate, VOMITING, BLISTERS, TACHYCARDIA, 02/18/21) Tetracyclines (Verified Adverse Reaction, Intermediate, TACHYCARDIA, BLISTERS, HIVES, 02/18/21) aripiprazole (Verified Adverse Reaction, Intermediate, TACHYCARDIA, 02/18/21) metronidazole (Verified Adverse Reaction, Mild, itching, 02/18/21) venlafaxine (Verified Adverse Reaction, Mild, INCREASED HR, 02/18/21) A-FIB/CHADSVASC A-FIB History Current/History of A-Fib/PAF?: No DIMITRI HOPPER Feb 19, 2021 00:57 MARILYN CARO MD Feb 23, 2021 03:05
[2021-02-19] MEDS ORDERED: METF-838 PO (01:06)
[2021-02-19] MEDS ORDERED: TRAM50TA2 PO (01:06)
[2021-02-19] MEDS ORDERED: ZOFR4TAB16 PO (01:06)
[2021-02-19] MEDS ORDERED: CVS100LI4 PO (01:06)
[2021-02-19] MEDS ORDERED: IPRA0.00 INH (01:06)
[2021-02-19] MEDS ORDERED: HOME MED LIST COMPLETE! XX SCH (01:10)
[2021-02-19] MEDS: HumaLOG INSULIN (NovoLOG) PER UNIT SC SCH ×5 (01:18→20:43)
[2021-02-19] MEDS ORDERED: LIDOCAINE 5% (LIDODERM) PATCH TOP PRN (01:25)
[2021-02-19] MEDS ORDERED: ONDANSETRON 4 MG TAB PO PRN (01:25)
[2021-02-19] MEDS ORDERED: FLUTICASONE PROP 0.05% NASAL SPRAY 16 GM (FLONASE) PRN (01:25)
[2021-02-19] MEDS ORDERED: NORCO, ANEXSIA 5/325MG TABLET (HYDROcodone/ACETAMINOPHEN) PO PRN (01:25)
[2021-02-19] MEDS ORDERED: traMADol 50 MG TAB PO PRN (01:25)
[2021-02-19] MEDS ORDERED: guaiFENesin 200 MG TAB PO PRN (01:30)
[2021-02-19] MEDS: IPRATROPIUM 0.5MG/ALBUTEROL 2.5MG INH SOL UD 3ML (DUONEB) NEB SCH ×4 (04:52→20:00)
[2021-02-19] MEDS: methylPREDNISolone 125MG 2ML VIAL IV SCH ×2 (05:00→13:06)
[2021-02-19 05:54] VITALS: BP 140/90
[2021-02-19] MEDS: SYMBICORT 160/4.5MCG INHALER 6GM INH SCH ×2 (07:36→20:08)
--- NOTE | 2021-02-19 08:04 | ECGEPIP ---
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
[2021-02-19] MEDS: PANTOPRAZOLE 40MG TAB (PROTONIX) PO SCH (08:49)
[2021-02-19] MEDS: ASPIRIN 81MG ENTERIC TABLET PO SCH (08:49)
[2021-02-19] MEDS: ENOXAPARIN 40MG/0.4ML SYRINGE (J1650 PER 10MG) SC SCH (08:50)
[2021-02-19] MEDS: DOCUSATE SODIUM 100MG CAPSULE PO SCH ×3 (08:57→20:47)
[2021-02-19] MEDS ORDERED: FUROSEMIDE 40 MG TAB PO SCH (09:00)
[2021-02-19 09:30] LABS: INR 0.99; PROTHROMBIN TIME 13.5 SECONDS (12.7-14.5)
[2021-02-19 09:31] LABS: PARTIAL THROMBOPLASTIN TIME 23.9 SECONDS (25.9-37.0)
[2021-02-19 09:58] LABS: CK-MB VALUE MASS < 1.0 NG/ML (<3.6); CPK CREATINE PHOSPHOKINASE 29 U/L (26-192); MB/CK RELATIVE INDEX 3.45 (< OR =4); TROPONIN I < 0.02 NG/ML (< 0.10)
[2021-02-19] MEDS ORDERED: FLUBLOK(EGG FREE)(QUAD)INFLUENZA VACC 0.5ML SYRINGE 18YRS & OLDER IM ONE (10:00)
[2021-02-19] MEDS: MIRALAX *UNIT DOSE* 17GM PACKET PO PRN ×2 (10:52→22:53)
--- NOTE | 2021-02-19 12:33 | IPNPDOC ---
Text Note Date of Service The patient was seen on 02/19/21. NOTE Subjective: -No acute complaints, on BiPAP with respiratory at bedside, adjusting to home settings Objective: VITAL SIGNS: Please see below. GENERAL APPEARANCE: NAD, AOx3 HEENT: NCAT, nasal canula in place, MMM, EOMI CARDIOVASCULAR: Regular rate, rhythm. No murmurs, rubs, gallops. LUNGS: No wheezing this morning. Breath sounds decreased b/l, no brandon crackles ABDOMEN: Left sided colostomy bag noted. There is a clean, dry dressing over a packed wound next to the umbilicus, no surrounding erythema EXTREMITIES: No pedal edema noted. No overlying skin changes. Pulses intact NEUROLOGICAL: Speech clear. A+Ox3. No focal deficits LABORATORY DATA: Reviewed WBC 9.7 Hgb 12.4 platelets 293 IMAGING: CXR Lungs: Unremarkable. No consolidation. Pleural spaces: Unremarkable. No pleural effusion. No pneumothorax. Heart/Mediastinum: Unremarkable. No cardiomegaly. Bones/joints: Unremarkable. IMPRESSION: No acute findings. LE Vascular US: Right deep veins: Common femoral, femoral, proximal profunda femoral and popliteal veins are patent without thrombus. Normal Doppler waveforms. Normal compressibility and/or augmentation response. Right superficial veins: Saphenofemoral junction is patent without thrombus. Left deep veins: Common femoral, femoral, proximal profunda femoral and popliteal veins are patent without thrombus. Normal Doppler waveforms. Normal compressibility and/or augmentation response. Left superficial veins: Saphenofemoral junction is patent without thrombus. Soft tissues: No abnormal focal fluid collection. IMPRESSION: No evidence of deep vein thrombosis from common femoral through popliteal levels. Calf veins are not visualized. CTA Chest: Pulmonary arteries: Peripheral pulmonary artery evaluation limited by cardiac and respiratory motion artifact. Central pulmonary arteries show no intraluminal defect suggestive of clot. Aorta: No thoracic aortic aneurysm or dissection. Great vessels off aortic arch: Atherosclerotic calcifications in the coronary vessels. Lungs: Pulmonary vascular/interstitial pattern does not suggest active pulmonary edema. Centrilobular emphysema changes are present with apical predominance and areas of parenchymal scarring. Bronchiectasis and fibrosis is present the posterior right lung base, without identifiable underlying mass. No evidence of pneumonia or central endobronchial lesion. Pleural spaces: No pleural effusion or pneumothorax. Heart: No overt cardiac enlargement or abnormal volume of pericardial fluid. Lymph nodes: No enlarged mediastinal lymph nodes. Liver: Liver is enlarged and decreased in density suggesting hepatic steatosis. Bones/joints: Bony structures show no acute fracture or destructive process. Soft tissues: Unremarkable. IMPRESSION: 1. No evidence of acute, central pulmonary embolus. Peripheral pulmonary arterial evaluation is limited by cardiac and respiratory motion artifact. 2. Centrilobular emphysema with basilar bronchiectasis and fibrosis. No active pneumonia MICROBIOLOGY: Please see below. ASSESSMENT: 65 y/o W with a pmh of chf, dm2, pvd, htn, so on qhs bipap, copd on 2L o2 at home who presented to the ED on 02/18 with a cc of uri symptoms and sob that has been worsening for approximately 2 weeks and admitted for a copd exacerbation. PLAN: COPD exacerbation - Patient received 125mg of solumedrol in the ed, continue solumedrol 80mg iv QD with plan to switch to oral pred tomorrow if stable - scheduled duonebs q6h, prn xopenex q3h - patient on chronic 2L supplemental o2 - now requiring 3L - will titrate supplemental o2 to maintain saturation of 88-92 - will continue at home nightly mucinex dose and add prn tablets throughout the day - continue at home inhalers SO - continue nocturnal PAP CHF: not in acute exacerbation - patient not fluid overloaded on exam - continue home PO lasix, asa GERD - continue protonix Chronic back pain - continue norco, tramadol DM2 - sliding scale coverage - hypoglycemic protocol - FSBG AC/HS Morbid obesity: -BMI 38.1 -complicates care Periumbilical wound: -daily nursing dressing -if still inpatient 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 VS,Fishbone, I+O VS, Fishbone, I+O Laboratory Tests 02/18/21 20:28 Vital Signs Date Time Temp Pulse Resp B/P (MAP) Pulse Ox O2 Delivery O2 Flow Rate FiO2 02/19/21 05:54 97.5 117 21 140/90 (107) 94 Nasal Cannula 4.0 MACARIO GILBERT MD Feb 19, 2021 10:30
[2021-02-19 14:00] VITALS: BP 130/78
[2021-02-19 15:32] LABS: CK-MB VALUE MASS < 1.0 NG/ML (<3.6); CPK CREATINE PHOSPHOKINASE 31 U/L (26-192); MB/CK RELATIVE INDEX 3.23 (< OR =4); TROPONIN I < 0.02 NG/ML (< 0.10)
[2021-02-19] MEDS: guaiFENesin SYRUP 200 MG/10 ML UDC PO SCH (20:42)
[2021-02-19] MEDS: **NOTE PATIENT COMMENT** MISC XX SCH (21:00)
[2021-02-19 22:00] VITALS: BP 136/80
[2021-02-19] MEDS: NYSTATIN 100,000 UNITS/GM TOPICAL PWD 15 GM TOP SCH (22:53)
[2021-02-19 23:23] LABS: CK-MB VALUE MASS < 1.0 NG/ML (<3.6); CPK CREATINE PHOSPHOKINASE 30 U/L (26-192); MB/CK RELATIVE INDEX 3.33 (< OR =4); TROPONIN I < 0.02 NG/ML (< 0.10)
[2021-02-20] MEDS: IPRATROPIUM 0.5MG/ALBUTEROL 2.5MG INH SOL UD 3ML (DUONEB) NEB SCH ×4 (01:52→19:39)
[2021-02-20 05:50] LABS: HEMATOCRIT 35.3 % (36.0-47.0); HEMOGLOBIN 10.7 g/dl (12.0-15.5); MEAN CORPUSCULAR HEMOGLOBIN 25.8 pg (27.0-33.0); MEAN CORPUSCULAR HGB CONC 30.3 g/dl (32.0-36.5); MEAN CORPUSCULAR VOLUME 85.3 fl (80.0-96.0); PLATELET COUNT, AUTOMATED 263 10^3/uL (150-450); RED BLOOD COUNT 4.14 10^6/uL (4.00-5.40); WHITE BLOOD COUNT 12.9 10^3/uL (4.0-10.0)
[2021-02-20 06:23] LABS: CALCIUM LEVEL 9.5 MG/DL (8.8-10.2); CREATININE FOR GFR 1.34 MG/DL (0.55-1.30); GLOMERULAR FILTRATION RATE 42.4 (>45); MAGNESIUM LEVEL 2.5 MG/DL (1.8-2.4); POTASSIUM SERUM 4.7 MEQ/L (3.5-5.1)
[2021-02-20 06:36] VITALS: BP 123/74
[2021-02-20] MEDS: HumaLOG INSULIN (NovoLOG) PER UNIT SC SCH ×3 (07:04→17:33)
[2021-02-20] MEDS ORDERED: HumaLOG INSULIN (NovoLOG) PER UNIT SC ONE (07:05)
[2021-02-20] MEDS: SYMBICORT 160/4.5MCG INHALER 6GM INH SCH ×2 (07:08→19:39)
[2021-02-20] MEDS ORDERED: methylPREDNISolone 125MG 2ML VIAL IV SCH (09:00)
[2021-02-20] MEDS: DOCUSATE SODIUM 100MG CAPSULE PO SCH ×2 (09:00→21:47)
[2021-02-20] MEDS ORDERED: predniSONE 20 MG TAB PO SCH (09:00)
[2021-02-20] MEDS: ENOXAPARIN 40MG/0.4ML SYRINGE (J1650 PER 10MG) SC SCH (09:44)
[2021-02-20] MEDS: PANTOPRAZOLE 40MG TAB (PROTONIX) PO SCH (09:46)
[2021-02-20] MEDS: NYSTATIN 100,000 UNITS/GM TOPICAL PWD 15 GM TOP SCH ×2 (09:46→21:47)
[2021-02-20] MEDS: ASPIRIN 81MG ENTERIC TABLET PO SCH (09:46)
[2021-02-20] MEDS: MIRALAX *UNIT DOSE* 17GM PACKET PO PRN (09:55)
--- NOTE | 2021-02-20 10:45 | IPNPDOC ---
Text Note Date of Service The patient was seen on 02/20/21. NOTE Subjective: -No acute complaints, on BiPAP appears comfortable Objective: VITAL SIGNS: Please see below. GENERAL APPEARANCE: NAD, AOx3 HEENT: NCAT, nasal canula in place, MMM, EOMI CARDIOVASCULAR: Regular rate, rhythm. No murmurs, rubs, gallops. LUNGS: No wheezing this morning. Breath sounds decreased b/l, no brandon crackles ABDOMEN: Left sided colostomy bag noted. There is a clean, dry dressing over a packed wound next to the umbilicus, no surrounding erythema EXTREMITIES: No pedal edema noted. No overlying skin changes. Pulses intact NEUROLOGICAL: Speech clear. A+Ox3. No focal deficits LABORATORY DATA: Reviewed WBC 12.3 Cr 1.34 IMAGING: CXR Lungs: Unremarkable. No consolidation. Pleural spaces: Unremarkable. No pleural effusion. No pneumothorax. Heart/Mediastinum: Unremarkable. No cardiomegaly. Bones/joints: Unremarkable. IMPRESSION: No acute findings. LE Vascular US: Right deep veins: Common femoral, femoral, proximal profunda femoral and popliteal veins are patent without thrombus. Normal Doppler waveforms. Normal compressibility and/or augmentation response. Right superficial veins: Saphenofemoral junction is patent without thrombus. Left deep veins: Common femoral, femoral, proximal profunda femoral and popliteal veins are patent without thrombus. Normal Doppler waveforms. Normal compressibility and/or augmentation response. Left superficial veins: Saphenofemoral junction is patent without thrombus. Soft tissues: No abnormal focal fluid collection. IMPRESSION: No evidence of deep vein thrombosis from common femoral through popliteal levels. Calf veins are not visualized. CTA Chest: Pulmonary arteries: Peripheral pulmonary artery evaluation limited by cardiac and respiratory motion artifact. Central pulmonary arteries show no intraluminal defect suggestive of clot. Aorta: No thoracic aortic aneurysm or dissection. Great vessels off aortic arch: Atherosclerotic calcifications in the coronary vessels. Lungs: Pulmonary vascular/interstitial pattern does not suggest active pulmonary edema. Centrilobular emphysema changes are present with apical predominance and areas of parenchymal scarring. Bronchiectasis and fibrosis is present the posterior right lung base, without identifiable underlying mass. No evidence of pneumonia or central endobronchial lesion. Pleural spaces: No pleural effusion or pneumothorax. Heart: No overt cardiac enlargement or abnormal volume of pericardial fluid. Lymph nodes: No enlarged mediastinal lymph nodes. Liver: Liver is enlarged and decreased in density suggesting hepatic steatosis. Bones/joints: Bony structures show no acute fracture or destructive process. Soft tissues: Unremarkable. IMPRESSION: 1. No evidence of acute, central pulmonary embolus. Peripheral pulmonary arterial evaluation is limited by cardiac and respiratory motion artifact. 2. Centrilobular emphysema with basilar bronchiectasis and fibrosis. No active pneumonia MICROBIOLOGY: Please see below. ASSESSMENT: 65 y/o W with a pmh of chf, dm2, pvd, htn, so on qhs bipap, copd on 2L o2 at home who presented to the ED on 02/18 with a cc of uri symptoms and sob that has been worsening for approximately 2 weeks and admitted for a copd exacerbation. PLAN: COPD exacerbation - Patient received 125mg of solumedrol in the ed, discontinue solumedrol and de- escalate to prednisone 40mg PO QD - scheduled duonebs q6h, prn xopenex q3h - patient on chronic 2L supplemental o2 - now requiring 4L - will titrate supplemental o2 to maintain saturation of 88-92 - will continue at home nightly mucinex dose and add prn tablets throughout the day - continue at home inhalers SO - continue nocturnal PAP CHF: not in acute exacerbation - patient not fluid overloaded on exam - continue home PO lasix, asa GERD - continue protonix Chronic back pain - continue norco, tramadol DM2 - sliding scale coverage - hypoglycemic protocol - FSBG AC/HS Morbid obesity: -BMI 38.1 -complicates care Periumbilical wound: -daily nursing dressing -if still inpatient when Dr. 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 VS,Fishbone, I+O VS, Fishbone, I+O Laboratory Tests 02/20/21 05:21 Vital Signs Date Time Temp Pulse Resp B/P (MAP) Pulse Ox O2 Delivery O2 Flow Rate FiO2 02/20/21 06:36 98.1 98 18 123/74 (90) 99 NIPPV (BIPAP/CPAP) 4.0 I&O- Last 24 Hours up to 6 AM 02/20/21 06:00 Intake Total 1800 ml Output Total 1150 ml Balance 650 ml MACARIO GILBERT MD Feb 20, 2021 09:46
[2021-02-20 14:00] VITALS: BP 118/65
[2021-02-20] MEDS ORDERED: LEVEMIR (INSULIN DETEMIR) 1 UNITS/0.01ML SC SCH (21:00)
[2021-02-20] MEDS: guaiFENesin SYRUP 200 MG/10 ML UDC PO SCH (21:47)
[2021-02-20] MEDS: **NOTE PATIENT COMMENT** MISC XX SCH (21:49)
[2021-02-20 22:00] VITALS: BP 140/83
[2021-02-21] MEDS: HumaLOG INSULIN (NovoLOG) PER UNIT SC SCH ×2 (00:11→06:06)
[2021-02-21] MEDS: IPRATROPIUM 0.5MG/ALBUTEROL 2.5MG INH SOL UD 3ML (DUONEB) NEB SCH ×2 (04:59→07:20)
[2021-02-21 06:00] VITALS: BP 105/56
[2021-02-21 06:35] LABS: HEMATOCRIT 34.8 % (36.0-47.0); HEMOGLOBIN 10.5 g/dl (12.0-15.5); MEAN CORPUSCULAR HEMOGLOBIN 25.7 pg (27.0-33.0); MEAN CORPUSCULAR HGB CONC 30.2 g/dl (32.0-36.5); MEAN CORPUSCULAR VOLUME 85.1 fl (80.0-96.0); PLATELET COUNT, AUTOMATED 244 10^3/uL (150-450); RED BLOOD COUNT 4.09 10^6/uL (4.00-5.40)
[2021-02-21 06:58] LABS: CALCIUM LEVEL 9.6 MG/DL (8.8-10.2); CREATININE FOR GFR 1.02 MG/DL (0.55-1.30); GLOMERULAR FILTRATION RATE 58.1 (>45); MAGNESIUM LEVEL 2.8 MG/DL (1.8-2.4); POTASSIUM SERUM 4.6 MEQ/L (3.5-5.1)
[2021-02-21] MEDS: SYMBICORT 160/4.5MCG INHALER 6GM INH SCH (07:20)
[2021-02-21] MEDS: PANTOPRAZOLE 40MG TAB (PROTONIX) PO SCH (08:19)
[2021-02-21] MEDS: ENOXAPARIN 40MG/0.4ML SYRINGE (J1650 PER 10MG) SC SCH (08:19)
[2021-02-21] MEDS: ASPIRIN 81MG ENTERIC TABLET PO SCH (08:19)
[2021-02-21] MEDS: DOCUSATE SODIUM 100MG CAPSULE PO SCH (08:19)
[2021-02-21] MEDS: NYSTATIN 100,000 UNITS/GM TOPICAL PWD 15 GM TOP SCH (08:20)
[2021-02-21] MEDS: predniSONE 20 MG TAB PO SCH ×2 (08:21→08:39)
[2021-02-21] MEDS ORDERED: PRED20TA PO (08:41)
--- NOTE | 2021-02-21 12:59 | DS.PDOC ---
Discharge Summary General Date of Admission Feb 18, 2021 at 20:08 Date of Discharge 02/21/2021 Attending Physician: MACARIO GILBERT MD Discharge Summary PROCEDURES PERFORMED DURING STAY: None ADMITTING DIAGNOSES: COPD exacerbation DISCHARGE DIAGNOSES: COPD exacerbation Acute on chronic hypoxemic respiratory failure NIDDM PVD HTN JIGNESH on qhs bipap Periumbilical post surgical chronic wound COMPLICATIONS/CHIEF COMPLAINT: Copd With Acute Exacerbation. HISTORY OF PRESENT ILLNESS: 65 y/o W with a pmh of chf, dm2, pvd, htn, jignesh on qhs bipap, copd on 2L o2 at home who presents to our ED on 02/18 with a cc of uri type sx and sob that had been worsening for approximately 2 weeks. Patient was recently admitted to our hospital service from 01/06-01/12 of this year also with a copd exacerbation. Patient tells me that she believes that she asked to leave the hospital too ear ly at that time as she believes that she did not fully recover from that exacerbation. Patient tells me that her symptoms have gotten worse the past 2 weeks or so, however, and was currently experiencing severe chest congestion associated with cough productive of white sputum. Patient states that her breathing has also been worse and is routinely using her at home nebulizer but states that it helps her wheezing greatly. HOSPITAL COURSE: On evaluation, she was HDS and afebrile, respiratory panel was negative while imaging most importantly CTA chest showed centrilobular emphysema with basilar bronchiectasis and fibrosis with no active pneumonia, effusions or PE. She was placed on IV steroids that were c/b hyperglycemia requiring increased dosing of insulin while metformin was held with good effect. Her pulmonary symptoms quickly improved with resolution of her diffuse wheezing at presentation. She did however continue to need 4L instead of her baseline 2L. The rest of her course by issue are as noted below: COPD exacerbation - Patient received 125mg of solumedrol in the ed, and then more daily IV solumedrol that was eventually de-escalated to prednisone 40mg PO QD for which she will complete a 5d course at home - She had scheduled duonebs q6h, prn xopenex q3h - patient on chronic 2L supplemental o2 and currently requiring 4L - Continued home nightly mucinex dose and add prn tablets throughout the day - continued at home inhalers JIGNESH - continued nocturnal PAP CHF: not in acute exacerbation - patient not fluid overloaded on exam - continued home PO lasix, asa GERD - continued protonix Chronic back pain - continued norco, tramadol DM2 - sliding scale coverage. Required a brief levemir 10u QHS for hyperglycemia i/s/o IV steroids - hypoglycemic protocol - FSBG AC/HS - held her metformin while inpatient Morbid obesity: -BMI 38.1 -complicates care Periumbilical wound: -daily nursing dressing DISCHARGE MEDICATIONS: Please see below. ALLERGIES: Please see below. PHYSICAL EXAMINATION ON DISCHARGE: VITAL SIGNS: Please see below. GENERAL APPEARANCE: NAD, AOx3 HEENT: NCAT, nasal canula in place, MMM, EOMI CARDIOVASCULAR: Regular rate, rhythm. No murmurs, rubs, gallops. LUNGS: Moving air well this morning, no wheezing, no brandon crackles ABDOMEN: Left sided colostomy bag noted. There is a clean, dry dressing over a packed wound next to the umbilicus, no surrounding erythema EXTREMITIES: No pedal edema noted. No overlying skin changes. Pulses intact NEUROLOGICAL: Speech clear. A+Ox3. No focal deficits LABORATORY DATA: Please see below. IMAGING: CXR Lungs: Unremarkable. No consolidation. Pleural spaces: Unremarkable. No pleural effusion. No pneumothorax. Heart/Mediastinum: Unremarkable. No cardiomegaly. Bones/joints: Unremarkable. IMPRESSION: No acute findings. LE Vascular US: Right deep veins: Common femoral, femoral, proximal profunda femoral and popliteal veins are patent without thrombus. Normal Doppler waveforms. Normal compressibility and/or augmentation response. Right superficial veins: Saphenofemoral junction is patent without thrombus. Left deep veins: Common femoral, femoral, proximal profunda femoral and popliteal veins are patent without thrombus. Normal Doppler waveforms. Normal compressibility and/or augmentation response. Left superficial veins: Saphenofemoral junction is patent without thrombus. Soft tissues: No abnormal focal fluid collection. IMPRESSION: No evidence of deep vein thrombosis from common femoral through popliteal levels. Calf veins are not visualized. CTA Chest: Pulmonary arteries: Peripheral pulmonary artery evaluation limited by cardiac and respiratory motion artifact. Central pulmonary arteries show no intraluminal defect suggestive of clot. Aorta: No thoracic aortic aneurysm or dissection. Great vessels off aortic arch: Atherosclerotic calcifications in the coronary vessels. Lungs: Pulmonary vascular/interstitial pattern does not suggest active pulmonary edema. Centrilobular emphysema changes are present with apical predominance and areas of parenchymal scarring. Bronchiectasis and fibrosis is present the posterior right lung base, without identifiable underlying mass. No evidence of pneumonia or central endobronchial lesion. Pleural spaces: No pleural effusion or pneumothorax. Heart: No overt cardiac enlargement or abnormal volume of pericardial fluid. Lymph nodes: No enlarged mediastinal lymph nodes. Liver: Liver is enlarged and decreased in density suggesting hepatic steatosis. Bones/joints: Bony structures show no acute fracture or destructive process. Soft tissues: Unremarkable. IMPRESSION: 1. No evidence of acute, central pulmonary embolus. Peripheral pulmonary arterial evaluation is limited by cardiac and respiratory motion artifact. 2. Centrilobular emphysema with basilar bronchiectasis and fibrosis. No active pneumonia MICROBIOLOGY: Please see below. PROGNOSIS: Good ACTIVITY: As tolerated DIET: Consistent carb, 2g sodium DISCHARGE PLAN: Home with services DISPOSITION: Home DISCHARGE INSTRUCTIONS: 5d of prednisone, PCP follow up within 7d, PCP follow up within 7d, follow up with Dr. Pa within 2w ITEMS TO FOLLOWUP ON ON OUTPATIENT: Resolution of COPD exacerbation DISCHARGE CONDITION: Stable TIME SPENT ON DISCHARGE: 46 minutes. Vital Signs/I&Os Vital Signs Date Time Temp Pulse Resp B/P (MAP) Pulse Ox O2 Delivery O2 Flow Rate FiO2 02/21/21 06:00 97.4 68 18 105/56 (72) 98 NIPPV (BIPAP/CPAP) 02/20/21 21:00 4.0 I&O- Last 24 Hours up to 6 AM 02/21/21 06:00 Intake Total 1420 ml Output Total 1700 ml Balance -280 ml Laboratory Data Labs 24H Laboratory Tests 2 02/20/21 11:54: Bedside Glucose (Misc Panel) 299H 02/20/21 17:24: Bedside Glucose (Misc Panel) 468H 02/20/21 21:34: Bedside Glucose (Misc Panel) 457H 02/21/21 00:00: Bedside Glucose (Misc Panel) 385H 02/21/21 05:32: Nucleated Red Blood Cells % (auto) 0.0, Anion Gap 6L, Glomerular Filtration Rate 58.1, Calcium Level 9.6, Magnesium Level 2.8H 02/21/21 05:59: Bedside Glucose (Misc Panel) 263H CBC/BMP Laboratory Tests 02/21/21 05:32 FSBS Laboratory Tests Test 02/20/21 11:54 02/20/21 17:24 02/20/21 21:34 02/21/21 00:00 Range/Units Bedside Glucose (Misc Panel) 299 468 457 385 80-115 MG/DL Test 02/21/21 05:59 Range/Units Bedside Glucose (Misc Panel) 263 80-115 MG/DL Microbiology Microbiology 02/19/21 Blood Culture - Preliminary, Resulted No growth after 24 hours . All specim... 02/19/21 Blood Culture - Preliminary, Resulted No growth after 24 hours . All specim... 02/18/21 Respiratory Virus Panel (PCR) (JOHNNY) - Final, Complete 02/18/21 Blood Culture - Final, Complete Bacillus Sp., Not Anthracis 02/18/21 Blood Culture - Preliminary, Resulted No Growth after 48 hours. All Specime... Discharge Medications Scheduled Aspirin (Aspirin EC) 81 Mg Tabec, 81 MG PO DAILY, (Reported) Budesonide/Formoterol (Symbicort 160-4.5 Mcg Inhaler) 6 Gm Hfa.aer.ad, 2 PUFF INH BID, (Reported) Furosemide (Furosemide) 40 Mg Tab, 40 MG PO DAILY, (Reported) Guaifenesin (Tussin) 100 Mg/5 Ml Liquid, 10 ML PO QHS, (Reported) Metformin HCl (Metformin HCl ER) 500 Mg Tab.er.24h, 500 MG PO BID, (Reported) Pantoprazole Sodium (Pantoprazole Sodium) 40 Mg Tablet.dr, 40 MG PO DAILY, (Reported) Prednisone (Prednisone) 20 Mg Tablet, 2 TAB PO DAILY Scheduled PRN Albuterol Sulfate (Proair Hfa) 8.5 Gm Hfa.aer.ad, 2 PUFFS INH Q4H PRN for SHORTNESS OF BREATH, (Reported) Fluticasone Propionate (Flonase Allergy Relief) 9.9 Ml Ridge.susp, 2 SPRAYS NA DAILY PRN for NASAL CONGESTION, (Reported) Hydrocodone/Acetaminophen (Hydrocodone-Acetamin 5-325 mg) 1 Each Tablet, 1 TAB PO Q6H PRN for SEVERE PAIN (PS 8-10), (Reported) Ipratropium/Albuterol Sulfate (Iprat-Albut 0.5-3(2.5) mg/3 ml) 3 Ml Ampul.neb, 3 ML INH Q6H PRN for SHORTNESS OF BREATH, (Reported) Lidocaine (Lidocaine) 5% Adh..patch, 1 PATCH TOP DAILY PRN for MODERATE PAIN (PS 5-7), (Reported) USES ON LOWER BACK Ondansetron HCl (Zofran) 4 Mg Tablet, 4 MG PO DAILY PRN for NAUSEA, (Reported) Polyethylene Glycol 3350 (Miralax) 17 Gm Powd.pack, 17 GM PO BID PRN for CONSTIPATION, (Reported) Tramadol HCl (Tramadol HCl) 50 Mg Tablet, 50 MG PO Q6H PRN for BACK PAIN, (Reported) Allergies Coded Allergies: Macrolide Antibiotics (Verified Allergy, Intermediate, ITCHY, HIVES, 02/18/21) HAS TAKEN AZITHROMYCIN W/O PROBLEM Penicillins (Verified Allergy, Intermediate, HIVES, 02/18/21) pt has had cefdinir in the past Quinolones (Verified Allergy, Mild, RASH, 02/18/21) Sulfa (Sulfonamide Antibiotics) (Verified Adverse Reaction, Intermediate, VOMITING, BLISTERS, TACHYCARDIA, 02/18/21) Tetracyclines (Verified Adverse Reaction, Intermediate, TACHYCARDIA, BLISTERS, HIVES, 02/18/21) aripiprazole (Verified Adverse Reaction, Intermediate, TACHYCARDIA, 02/18/21) metronidazole (Verified Adverse Reaction, Mild, itching, 02/18/21) venlafaxine (Verified Adverse Reaction, Mild, INCREASED HR, 02/18/21) MACARIO GILBERT MD Feb 21, 2021 09:02
== END 2021-02-21 11:33 | disposition home health service (06) | DRG 190 ==
LOC: M ED 20:07 → M ED INP 20:08 → ENRESERV 02-19 04:56 → M MSPAV 02-19 05:53
PROVIDERS: ADMIT Internal Medicine; ATTEND Internal Medicine
DX: J44.1 Chronic obstructive pulmonary disease with (acute) exacerbation (principal); J96.21 Acute and chronic respiratory failure with hypoxia; E87.2 Acidosis; I50.32 Chronic diastolic (congestive) heart failure; Z99.81 Dependence on supplemental oxygen; G47.33 Obstructive sleep apnea (adult) (pediatric); E11.51 Type 2 diabetes mellitus with diabetic peripheral angiopathy without gangrene; K21.9 Gastro-esophageal reflux disease without esophagitis; E66.01 Morbid (severe) obesity due to excess calories; Z68.38 Body mass index [BMI] 38.0-38.9, adult; Z79.899 Other long term (current) drug therapy; Z79.82 Long term (current) 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; Z88.0 Allergy status to penicillin; Z88.2 Allergy status to sulfonamides; Z88.8 Allergy status to other drugs, medicaments and biological substances; Z98.42 Cataract extraction status, left eye; Z87.891 Personal history of nicotine dependence

== ENCOUNTER 2021-05-10 14:11 | Emergency (ER) | payer MEDICARE, MEDICAID ==
[~2021-05-10] VITALS: Ht 170.2 cm; Wt 111.4 kg
[~2021-05-10 14:11] MED LIST changes: +CVS100LI4 PO; +DOXY-443 PO; -DOXY1CAP62 PO; +IPRA0.00 INH
--- OUTSIDE RECORDS SUMMARY | 2021-05-10 14:18 | CCD | Continuity of Care Document ---
Author Author Rossana PA MD Organization Unknown Address [address] [place] [address] Phone [phone] Care Team Providers Care Lead Embedded Software Engineer Name Role Phone Bacilio Hughes M.D. AUTM [phone] AUT[facility] Unavailable Problems Active Problems Provider Date Essential hypertension Jim Pa JR, MD Onset: 11/12/19 Social History Type Date Description Comments Sex Unknown Cigarette Use Occasionally Smokes Cigarettes 2 a day ETOH Use Currently consumes alcohol socia lly Recreational Drug Use Denies Drug Use Tobacco Use Start: Unknown Patient is a current smoker, smo kes every day A FEW DAILY Allergies, Adverse Reactions, Alerts Active Allergies Criticality Reaction | Severity Comments Date Penicillins Unable to assess criticality 07/28/2010 Erythromycin Unable to assess criticality 07/28/2010 Sulfa Antibiotics Unable to assess criticality 07/28/2010 Seroquel Unable to assess criticality 07/29/2010 Quinolones Unable to assess criticality Rash 06/26/2020 Tetracycline Unable to assess criticality Hives, Blisters, Tachycar adeline 06/26/2020 Aripiprazole Unable to assess criticality Tachycardia 06/26/2020 Venlafaxine Unable to assess criticality Increased HR 06/26/2020 Macrolides Unable to assess criticality 11/11/2020 Metronidazole Unable to assess criticality 11/11/2020 Medications Active Medications SIG Qnty Indications Ordering Provide r Date Symbicort 80-4.5mcg/Act Aerosol 2 puff bid 1units Unknown Aspirin 81 Low Dose 81mg Chewtabs 1 by mouth every day Unknown Furosemide 40mg Tablets 1 tab every day Unknown Guaifenesin ER 600mg Tablets ER 12 HR 1 tab twice a day Unknown Albuterol Sulfate (2 .5mg/3ML) 0.083% Nebulizer 1 vial four times a day as needed Unknown Miralax 17gm Packet take 1 packet daily as directed. Unknown Spiriva Respimat 1.25mcg/Act Aeros ol 2 puffs every day Unknown Pantoprazole Sodium 40mg Tablets D R One tab daily Unknown Oxycodone HCL 5mg Tablets 1 tablet every 4 hours for pain, as needed Unknown Spiriva Handihaler 18mcg Capsules 1 cap inhalation every in the morning Unknown Pain Relieving Lidocaine Patch 4% Patches 1 Q12H Unknown Immunizations Description No Information Available Vital Signs Date Vital Result Comment 01/21/2021 3:04pm BP Systolic 132 mmHg BP Diastolic 75 mmHg Heart Rate 84 /min Body Temperature 98.0 F Height 67 inches 5'7" Weight 232.00 lb BMI (Body Mass Index) 36.3 kg/m2 [place] Body Weight 135 lb Weight 105.235 kg BSA (Body Surface Area) 2.15 m2 12/29/2020 12:58pm BP Systolic 123 mmHg BP Diastolic 75 mmHg Heart Rate 87 /min Height 67 inches 5'7" Weight 232.00 lb BMI (Body Mass Index) 36.3 kg/m2 [place] Body Weight 135 lb Weight 105.235 kg BSA (Body Surface Area) 2.15 m2 Results Description No Information Available Procedures Date Code Description Status 01/21/2021 03601 Office/Outpatient Established Lo w MDM 20-29 Min Completed 10/25/2020 48470 Critical Care First 30-74 Minute s Completed 10/24/2020 00441 Critical Care Addl 30 Min Comple vidya 10/24/2020 36545 Critical Care First 30-74 Minute s Completed 10/23/2020 02467 Critical Care Addl 30 Min Comple vidya 10/23/2020 05084 Critical Care First 30-74 Minute s Completed 10/22/2020 48296 Critical Care Addl 30 Min Comple vidya 10/22/2020 88367 Critical Care First 30-74 Minute s Completed 10/22/2020 34850 Ultrasound Guidance For Vascular Access Requiring Ultrasound Eval Completed 10/22/2020 02018 Insertion Of Non-Rajinder neled Centrally Inserted Central Venous Mónica Completed Medical Devices Description No Information Available Encounters Type Date Location Provider Dx Diagnosis Office Visit 01/21/2021 3:45p [facility] Jim salinas JR, MD S31.105D Unsp opn wnd abd wall, periumb rgn w/o p enet perit cav, subs Office Visit 12/29/2020 1:00p [facility] MONICA Jean K56.609 Unsp intestnl obst, unsp as to partial v ersus complete obst Z48.815 Encntr for surgical aftcr fo llowing surgery on the [facility] sys Z93.3 Colostomy status Office Visit 12/11/2020 9:45a [facility] MONICA Jean K56.609 Unsp intestnl obst, unsp as to partial v ersus complete obst Z48.815 Encntr for surgical aftcr fo llowing surgery on the [facility] sys Office Visit 11/26/2020 1:00p [facility] Jim salinas JR, MD S31.105D Unsp opn wnd abd wall, periumb rgn w/o p enet perit cav, subs Z48.815 Encntr for surgical aftcr fo llowing surgery on the [facility] sys Office Visit 11/20/2020 1:45p [facility] MONICA Jean K56.609 Unsp intestnl obst, unsp as to partial v ersus complete obst Z48.815 Encntr for surgical aftcr fo llowing surgery on the [facility] sys Office Visit 10/25/2020 1:23a [facility] chari Eubanks DO K56.609 Unsp intestnl obst, unsp as to partial versus complete obst J96.00 Acute respiratory failure, u nsp w hypoxia or hypercapnia E83.39 Other disorders of phosphoru s metabolism J44.9 Chronic obstructive pulmonar y disease, unspecified Office Visit 10/24/2020 1:23a [facility] chari Eubanks DO K56.609 Unsp intestnl obst, unsp as to partial versus complete obst J96.00 Acute respiratory failure, u nsp w hypoxia or hypercapnia N17.9 Acute kidney failure, unspec ified E83.39 Other disorders of phosphoru s metabolism Office Visit 10/23/2020 1:23a [facility] Marcos malone D.OCarri A41.9 Sepsis, unspecified organism J96.01 Acute respiratory failure wi th hypoxia E87.2 Acidosis N17.9 Acute kidney failure, unspec ified Office Visit 10/22/2020 1:23a [facility] Ellie Back M.D. R65.21 Severe sepsis with septic sh ock K56.609 Unsp intestnl obst, unsp as to partial versus complete obst Assessments Date Code Description Provider 01/21/2021 S31.105D Unspecified open wou nd of abdominal wall, periumbilic region without penetration into peritoneal cavity, subsequent encounter Jim Pa JR, MD 12/29/2020 K56.609 Unspecified intestin al obstruction, unspecified as to partial versus complete obstruction MONICA Sainz 12/29/2020 Z48.815 Encounter for surgic al aftercare following surgery on the digestive system MONICA Sainz 12/29/2020 Z93.3 Colostomy status MONICA Sainz 12/11/2020 K56.609 Unspecified intestin al obstruction, unspecified as to partial versus complete obstruction MONICA Sainz 12/11/2020 Z48.815 Encounter for surgic al aftercare following surgery on the digestive system MONICA Sainz 11/26/2020 S31.105D Unspecified open wou nd of abdominal wall, periumbilic region without penetration into peritoneal cavity, subsequent encounter Jim Pa JR, MD 11/26/2020 Z48.815 Encounter for surgic al aftercare following surgery on the digestive system Jim Pa JR, MD 11/20/2020 K56.609 Unspecified intestin al obstruction, unspecified as to partial versus complete obstruction MONICA Sainz 11/20/2020 Z48.815 Encounter for surgic al aftercare following surgery on the digestive system MONICA Sainz 10/25/2020 K56.609 Unspecified intestin al obstruction, unspecified as to partial versus complete obstruction Jonathon Eubanks, DO 10/25/2020 J96.00 Acute respiratory fa ilure, unspecified whether with hypoxia or hypercapnia Jonathon Eubanks, DO 10/25/2020 E83.39 Other disorders of phosphorus me tabolism Jonathon Eubanks, DO 10/25/2020 J44.9 Chronic obstructive pulmonary di sease, unspecified Jonathon Eubanks, DO 10/24/2020 K56.609 Unspecified intestin al obstruction, unspecified as to partial versus complete obstruction Jonathon Eubanks, DO 10/24/2020 J96.00 Acute respiratory fa ilure, unspecified whether with hypoxia or hypercapnia Jonathon Eubanks, DO 10/24/2020 N17.9 Acute kidney failure, unspecifie d Jonathon Eubanks, DO 10/24/2020 E83.39 Other disorders of phosphorus me tabolism Jonathon Eubanks, DO 10/23/2020 A41.9 Sepsis, unspecified organism Ror y Sears, D.O. 10/23/2020 J96.01 Acute respiratory failure with h ypoxia Marcos Sears, D.O. 10/23/2020 E87.2 Acidosis Marcos Sears, D.O. 10/23/2020 N17.9 Acute kidney failure, unspecifie d Marcos Sears, D.O. 10/22/2020 R65.21 Severe sepsis with septic shock Ellie Newman M.D. 10/22/2020 K56.609 Unspecified intestin al obstruction, unspecified as to partial versus complete obstruction Ellie Newman M.D. Plan of Treatment 01/21/2021 - Jim Pa JR, MD* S31.105D Unspecified open wound of abdominal wall, periumbilic region without penetration into peritoneal cavity, subsequent encounter* Comments:* Dressing changes have been discussed with the patient and will continue with a dry dressing on a daily basis and encouraged her to try to have this performed twice a day and this will probably speed the healing a little bit unfortunately with her morbid obesity and an infection in this area she is developed a hernia at the site. Continue with dressing changes at this time and depending on her overall course we'll have to see if she will the a operative candidate for reversal of her colostomy in the future. Functional Status Description No Information Available Mental Status Description No Information Available Referrals Description No Information Available
--- OUTSIDE RECORDS SUMMARY | 2021-05-10 14:18 | CCD | Continuity of Care Document ---
Author Author Rossana PA MD Organization Unknown Address [address] [facility] [address] [place] [address] Phone [phone] Care Team Providers Care Director Of Institutional Research Name Role Phone Bacilio Hughes M.D. AUTM [phone] [facility] Unavailable Problems Active Problems Provider Date Essential hypertension Jim Pa JR, MD Onset: 11/12/19 Social History Type Date Description Comments Sex Unknown Cigarette Use Occasionally Smokes Cigarettes 2 a day ETOH Use Currently consumes alcohol socia lly Recreational Drug Use Denies Drug Use Tobacco Use Start: Unknown Patient is a current smoker, smo kes every day A FEW DAILY Allergies and adverse reactions Active Allergies Criticality Reaction | Severity Comments [...] 11/11/2020 Metronidazole Unable to assess criticality 11/11/2020 Abilify Unable to assess criticality heart racing 03/09/2021 Medications Active Medications SIG Qnty Indications Ordering Provide r Date Symbicort 80-4.5mcg/Act Aerosol 2 puff bid 1units Unknown Aspirin 81 Low Dose 81mg Chewtabs 1 by mouth every day Unknown Furosemide 40mg Tablets 1 tab every day Unknown Guaifenesin ER 600mg Tablets ER 12 HR 1 tab twice a day Unknown Incruse Ellipta 62.5mcg/Inh Aeroso l 1 puff every day Unknown Albuterol Sulfate (2 .5mg/3ML) 0.083% Nebulizer 1 vial four times a day as needed Unknown Miralax 17gm Packet take 1 packet daily as directed. Unknown Pantoprazole Sodium 40mg Tablets D R One tab daily Unknown Pain Relieving Lidocaine Patch 4% Patches 1 Q12H Unknown Proair HFA 108(90Base) mcg/Act Aer osol 2 puffs 2 times a day as needed Unknown Immunizations Description No Information Available Vital Signs Date Vital Result Comment 04/15/2021 12:53pm BP Systolic 145 mmHg BP Diastolic 87 mmHg Height 67 inches 5'7" Weight 245.00 lb stated BMI (Body Mass Index) 38.4 kg/m2 Bimble Body Weight 135 lb Weight 111.132 kg BSA (Body Surface Area) 2.20 m2 03/09/2021 1:39pm BP Systolic 144 mmHg BP Diastolic 84 mmHg Heart Rate 105 /min Body Temperature 98.2 F Height 67 inches 5'7" Weight 245.00 lb BMI (Body Mass Index) 38.4 kg/m2 Bimble Body Weight 135 lb Weight 111.132 kg BSA (Body Surface Area) 2.20 m2 Results Description No Information Available Procedures Date Code Description Status 04/15/2021 64687 Office/Outpatient Established SF MDM 10-19 Min Completed 03/09/2021 85680 Office/Outpatient Established SF MDM 10-19 Min Completed 01/21/2021 17845 Office/Outpatient Established Lo w MDM 20-29 Min Completed Medical Devices Description No Information Available Encounters Type Date Location Provider Dx Diagnosis Office Visit 04/15/2021 1:15p [facility] Jim salinas JR, MD S31.105D Unsp opn wnd abd wall, periumb rgn w/o p enet perit cav, subs Office Visit 03/09/2021 2:30p [facility] Jim salinas JR, MD S31.105D Unsp opn wnd abd wall, periumb rgn w/o p enet perit cav, subs Office Visit 01/21/2021 3:45p [facility] Jim salinas JR, MD S31.105D Unsp opn wnd abd wall, periumb rgn w/o p enet perit cav, subs Office Visit 12/29/2020 1:00p [facility] MONICA Jean K56.609 Unsp intestnl obst, unsp as to partial v ersus complete obst Z48.815 Encntr for surgical aftcr fo llowing surgery on the [facility] sys Z93.3 Colostomy status Office Visit 12/11/2020 9:45a [facility] MONICA Jean K56.609 Unsp intestnl obst, unsp as to partial v ersus complete obst Z48.815 Encntr for surgical aftcr fo llowing surgery on the [facility] sys Office Visit 11/26/2020 1:00p [facility] Jim salinas JR, MD S31.105D Unsp opn wnd abd wall, periumb rgn w/o p enet perit cav, subs Z48.815 Encntr for surgical aftcr fo llowing surgery on the [facility] sys Office Visit 11/20/2020 1:45p [facility] MONICA Jean K56.609 Unsp intestnl obst, unsp as to partial v ersus complete obst Z48.815 Encntr for surgical aftcr fo llowing surgery on the [facility] sys Assessments Date Code Description Provider 04/15/2021 S31.105D Unspecified open wou nd of abdominal wall, periumbilic region without penetration into peritoneal cavity, subsequent encounter Jim Pa JR, MD 03/09/2021 S31.105D Unspecified open wou nd of abdominal wall, periumbilic region without penetration into peritoneal cavity, subsequent encounter Jim Pa JR, MD 01/21/2021 S31.105D Unspecified open wou nd of [...] surgery on the digestive system MONICA Sainz Plan of Treatment Future Appointment(s):* 05/11/2021 2:15 pm - Jim Pa JR, MD at [facility] 04/15/2021 - Jim Pa JR, MD* S31.105D Unspecified open wound of abdominal wall, periumbilic region without penetration into peritoneal cavity, subsequent encounter* Comments:* Patient continues with dressing changes and overall we have made some recommendations concerning this but overall she has some good wound healing surprisingly improving since I last saw her and again I will see her in a few weeks and then will have to determine our next course of action for her obviously the question is whether she will be a candidate for operative intervention/colostomy reversal. Functional Status Description No Information Available Mental Status Description No Information Available Referrals Description No Information Available
--- OUTSIDE RECORDS SUMMARY | 2021-05-10 14:18 | CCD | Continuity of Care Document ---
Author Author Museum Archivist, [facility] Organization Unknown Address Unknown Phone Unavailable Care Team Providers Care Blending Machine Feeder Name Role Phone Saul SETHI, Neo aram Unavailable Neo Hughes MD aram Unavailable Blanca SETIH, Xireilly Unavailable [facility] Unavailable Chandana Huddleston DO Unavailable [facility], [place] Unavailable Ashely Naranjo LPN Unavailable Unavailable Unavailable Problems ACUTE HYPOXEMIC RESPIRATORY FAILURE Onset: Feb-2018 Co mments: admitted to [facility] (J96.01) (518.81) [facility], center [place] BRONCHIECTASIS (J47.9) (494.0) [facility], [place] CHRONIC BRONCHITIS (J42) (491.9) [facility], [place] COPD (CHRONIC OBSTRUCTIVE PULMONARY [facility] , DISEASE) (J44.9) (496) [place] Prognosis: routine visit. was admitted with copd exacerbation last month, has improved. insurance will cover LAMA now . restart incruse with symbicort. use rescue prn. still needs 2 liters oxygen during the day. up to 8 liters bled int o bipap. uses bipap regularly with benefit. 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 spirometry has severe obstruction, stable. monitor exacerbations. didn't' tolerate daliresp in the past. has incentive. follow up in a few months with testing, sooner prn. plan of care approved by Dr. Gucci Rios as of 05-Mar-2021 DEPRESSION (F32.9) (311) [facility], [place] GERD (GASTROESOPHAGEAL REFLUX DISEASE) [facility], (K21.9) (530.81) [place] HYPERTENSION (I10) (401.9) [facility], [place] HYPOXEMIA (R09.02) (799.02) [facility], [place] MORBID OBESITY (E66.01) (278.01) [facility], [place] JIGNESH (OBSTRUCTIVE SLEEP APNEA) (G47.33) [facility], (327.23) [place] PVD (PERIPHERAL VASCULAR DISEASE) [facility], (I73.9) (443.9) [place] TOXIC EFFECT OF TOBACCO (T65.291A) [facility], (989.84) [place] URINARY INCONTINENCE (R32) (788.30) [facility] , [place] Allergies and Adverse Reactions Abilify *ANTIPSYCHOTICS/ANTIMANIC Comments: Heart r aces AGENTS* (Allergy) Avelox *FLUOROQUINOLONES* (Allergy) Reaction: Hives Cipro *FLUOROQUINOLONES* (Allergy) Reaction: Hives Daliresp *ANTIASTHMATIC AND Reaction: Rash BRONCHODILATOR AGENTS* (Allergy) Effexor *ANTIDEPRESSANTS* (Allergy) Reaction: Hives Erythromycin *MACROLIDES* (Allergy) Comments: Lip s welling Nitrofurantoin *URINARY ANTI-INFECTIVES * (Allergy) Sulfa Antibiotics (Allergy) Reaction: Hives Medications Albuterol Sulfate (2.5 MG/3ML) 0.083% Comments: Med ication taken as needed. Inhalation Nebulization Solution; as needed ((2.5 MG/3ML) 0.083%) Benadryl Allergy 25 MG Oral Capsule; 1 Comments: M edication taken as needed. as needed (25 MG) BIPAP UNIT (327.23) ( Device) (Free Comments: Albert herr Text); with 8 liters oxygen at bedtime Famotidine 40 MG Oral Tablet; daily (4 0 MG) Fluticasone Propionate 50 MCG/ACT Nasal Comments: M edication taken as needed. Suspension; as needed (50 MCG/ACT) Incruse Ellipta 62.5 MCG/INH Inhalation Ordered: 05-Mar-20 Start: 05-Mar-2021 Aerosol Powder Breath Activated; 1 [facility] , (one) Puff daily for 30 days [place] Quantity: 1 {Each} Refills: 11 Ipratropium-Albuterol 0.5-2.5 (3) MG/3ML Ordered: 021 Start: 05-Mar-2021 Inhalation Solution; 1 (one) Vial four [facility], Comments: Medication taken as needed. 2 times daily, as needed for 30 days [place] box es with 2 refills Quantity: 2 {Each} Refills: 2 Lasix 40 MG Oral Tablet; 1 daily (40 MG) metFORMIN HCl ER 500 MG Oral Tablet Extended Release 24 Hour; two times daily (500 MG) Mucinex 600 MG Oral Tablet Extended Comments: Medic ation taken as needed. Release 12 Hour; as needed (600 MG) Ondansetron HCl 4 MG Oral Tablet; as Comments: Med ication taken as needed. needed (4 MG) OXYGEN (Inhalation Gas) (Free Text); 2 Comments: M cathya's; started with liters- up to 8L with bipap continuous [facility] admission, feb 2018 ProAir HFA 108 (90 Base) MCG/ACT Comments: Medicati on taken as needed. Inhalation Aerosol Solution; 2 puffs every four hours, as needed (108 (90 Base) MCG/ACT) Symbicort 160-4.5 MCG/ACT Inhalation Ordered: 30-Aug-2018 Start: 30-Aug-2018 Aerosol; 2 puffs Puff two times daily [facility], for 30 days [place] Quantity: 1 {Inhaler} Refills: 11 Daliresp 250 MCG Oral Tablet; 1 (one) Ordered: 9 Start: 29-Nov-2018 End: 27-Dec-2018 Tablet daily for 28 days [facility], Status: Inact emily Quantity: 28 {Tablet} [place] Comments: starte r pack Refills: 0 Daliresp 500 MCG Oral Tablet; 1 (one) Ordered: 0 Start: 13-Jun-2019 End: 25-Dec-2019 Tablet daily for 30 days [facility], Status: Inact emily Quantity: 30 {Tablet} [place] Refills: 5 Nicotine 21 MG/24HR Transdermal Patch 24 Status: In active Hour; 1 daily (21 MG/24HR) RaNITidine HCl 150 MG Oral Tablet; 2 Status: Inact emily daily (150 MG) Spiriva HandiHaler 18 MCG Inhalation Ordered: 14-Oct-2020 Start: 14-Oct-2020 End: 13-Nov-2020 Capsule; 1 (one) Capsule daily for 30 [facility], Status: Inactive days Comments: replacing incruse Quantity: 30 {Capsule} Refills: 0 Trelegy Ellipta 100-62.5-25 MCG/INH Ordered: 30-Aug-2018 Start: 28-Jun-2018 End: 30-Aug-2018 Inhalation Aerosol Powder Breath [facility], Statu s: Inactive Activated; 1 (one) Puff daily for 30 [place]ara days Quantity: 1 {Inhaler} Refills: 3 Spiriva Respimat 2.5 MCG/ACT Inhalation Ordered: 0 Start: 29-Nov-2018 End: 13-Jun-2019 Aerosol Solution; 2 (two) Puff Puff Status: Discon tinued daily for 30 days Comments: has not been usin g- states it Quantity: 1 {Inhaler} makes her body itch Refills: 11 Procedures PRE AND POST (57852) Status: Completed 05-Mar-20 EXHALED NITRIC OXIDE MEASUREMENT (31516) Status: Co mpleted 13-Jun-2019 EXHALED GAS NITRIC OXIDE MEASUREMENT Status: Catie dasilva 29-Nov-2018 (MOLES/VOLUME) (57251) PRE AND POST W/ RT (89047) Status: Completed REST/EXERCISE OXIMETRY (22484) Status: Completed EXHALED GAS NITRIC OXIDE MEASUREMENT Status: Catie dasilva 30-Aug-2018 (MOLES/VOLUME) (99144) AIRFLOW RESISTANCE MEASUREMENT: PULM Status: Catie dasilva 30-Aug-2018 FUNCT TEST OSCILLOMETRY (45145) TOTAL VITAL CAPACITY (24518) Status: Completed THORACIC GAS VOLUME: AIRWAY CLOSING Status: Complet ed 30-Aug-2018 VOLUME MEASUREMENT: PULM FUNCTION TEST BY GAS (79185) DLCO (CARBON MONOXIDE DIFFUSING Status: Completed 2 10-Aug-2018 CAPACITY) (43960) PRE AND POST (60970) Status: Completed 31-Aug-19 19 PRE AND POST (29870) Status: Completed 28-Jun-19 19 Alpha 1 Status: Completed 06-Jul-19 Comments: Normal. Cataracts Status: Completed Comments: Left. Chest X-ray Status: Completed 26-Feb-20 17 Comments: hyperinflation, NAD CPAP Status: Completed 9 Comments: bipap with 8 liters oxygen bled in CTA Status: Completed 29-May-20 18 Comments: no emboli, advanced copd/emphysema, moderate bronchiectasis [place] Sleepines Score Status: Completed 28-Jun-19 Comments: 11 FeNO Status: Completed 31-Aug-19 19 Comments: 66 ppb FeNO Status: Completed 30-Nov-19 19 Comments: 6 ppb FeNO Status: Completed 0 Comments: 5 ppb Flu Vaccine Status: Completed 9 Hysterectomy Status: Completed PFT Status: Completed 05-Mar-20 21 Comments: Severe Obstruction. FVC 1.57 (57) FEV1 0.76 (28) ratio 48 PFT Status: Completed 30-Nov-19 Comments: reduced FVC with obstruction and bronchodilator response PFT Status: Completed 31-Aug-19 19 Comments: Severe Obstruction. With Reversibility. No Restriction. Severe Diffusion Defect. and reduced FVC PFT Status: Completed 0 Comments: Abnormal. reduced FVC 54% wit h severe obstruction. Polysomnography Status: Completed 24-Jul-19 11 Comments: [place]- RDI 12/hr, LS 88% Polysomnography #2 Status: Completed 18-Mar-20 11 Comments: [place]- repeated due to cpap non compliance- AHI 8.5/hr Polysomnography #3 Status: Completed 19-Aug-19 12 Comments: [place]- AHI 5.2/hr, LS 91% PRE AND POST (07172)Result: Hemoptysis: Status: Comp leted No 13-Jun-2019 CXR PA & LAT (31092)Result: Are you Status: Complete d or could you become ?: 13-Jun-2019 No; When was you last CXR/CT?: over a week ago; Corporate Banking Officer: BRENDEN Evans [place] Sleepiness ScaleResult: Status: Completed [Situation] Sitting and Readin = 28-Jun-2018 Slight chance of dozing; Watching Television: 3 = High chance of dozing; Sitting inactive in a public place (theatre, meeting): 1 = Slight chance o f dozing; As a passenger in a car for an hour without a break: 1 = Slight chance of dozing; Lying down to rest in the afternoon: 3 = High chance of dozing; Sitting and talking to someone: 0 = Would never doze; Sitting quietly after lunch without alcohol: 1 = Slight chanc e of dozing; In a car, while stopping for a few minutes in traffic: 0 = Would never doze [Total] Score: 11 CXR PA & LAT (85296)Result: Are you Status: Complete d or could you become ?: 28-Jun-2018 No; When was you last CXR/CT?: OVER A WEEK AGO; Corporate Banking Officer: BRENDEN Evans Family History Emphysema Status: Active Comments: Maternal Grandmother. Social History Alcohol use:; Occasional alcohol use. Caffeine use:; Coffee. 2 servings / day . Foods. 4 servings / day. Current work status:; Disabled. Comments: DDD-lumba r spine, respiratory disease Marital status:; . No drug use Tobacco use:; Former smoker. Comments: max 5 ppd; 1 6-63 Ex-smoker Female Plan of Treatment CAT SCAN OF CHEST: CT THORAX W/O DYE Start: 20-Jun-2021 I ntent (48034) PRE AND POST (86520) Start: 20-Jun-2021 Intent REST OXIMETRY (02814) Start: 13-Jun-2019 Intent CPAP (71743) Start: 28-Jun-2018 Intent Comments: didn't tolerate cpap, wants bipap which she found more comfortable during a hospitalization PULMONARY REHAB (INCLUDES MONITORING) Start: 28-Jun-2018 Intent (G0424) Medical; PRE AND POST PFT - 4 MNTH FU Start: 06-Jul-2021 Appointment Request , PP, CT 14:30 Pulmonary [facility] Resp Therapy [place] 2, RT2 Medical; CT SCAN CHEST - 4 MNTH FU Start: 06-Jul-2021 Lisa ointment Request , PP, CT 14:45 Pulmonary Health [facility] XRAY [place], Xray Medical; FOLLOW UP 30 - 4 MNTH FU , Start: 2 Appointment Request PP, CT 15:00 Pulmonary [facility] MSN NPC, [place] [id number] ([id number]) Start: 28-Jun-[address] 13:44 COPD (CHRONIC OBSTRUCTIVE PULMONARY DISEASE) : Use Incentive Spirometer Regularly Indication:COPD (CHRONIC OBSTRUCTIVE PULMONARY DISEASE) BRONCHIECTASIS : CT chest next visit Indication:BRONCHIECTASIS COPD (CHRONIC OBSTRUCTIVE PULMONARY DISEASE) : Follow up in Jun 2021 Indication:COPD (CHRONIC OBSTRUCTIVE PULMONARY DISEASE) COPD (CHRONIC OBSTRUCTIVE PULMONARY DISEASE) : FU EITHER - Dr Rios patient Indication:COPD (CHRONIC OBSTRUCTIVE PULMONARY DISEASE) TOXIC EFFECT OF TOBACCO : Encouraged to remain smoke free Indication:TOXIC EFFECT OF TOBACCO MORBID OBESITY : Weight loss encouraged Indication:MORBID OBESITY JIGNESH (OBSTRUCTIVE SLEEP APNEA) : Continu e with BIPAP and oxygen Indication:JIGNESH (OBSTRUCTIVE SLEEP APNEA ) COPD (CHRONIC OBSTRUCTIVE PULMONARY DISEASE) : Follow up at [facility] Indication:COPD (CHRONIC OBSTRUCTIVE PULMONARY DISEASE) COPD (CHRONIC OBSTRUCTIVE PULMONARY DISEASE) : FU EITHER - Dr. Felipe Huddleston patient Indication:COPD (CHRONIC OBSTRUCTIVE PULMONARY DISEASE) JIGNESH (OBSTRUCTIVE SLEEP APNEA) : Continu e with BIPAP Indication:JIGNESH (OBSTRUCTIVE SLEEP APNEA ) BRONCHIECTASIS : Continue using flutter device Indication:BRONCHIECTASIS MORBID OBESITY : Weight loss encouraged Indication:MORBID OBESITY TOXIC EFFECT OF TOBACCO : Smoking cessation - continue with efforts Indication:TOXIC EFFECT OF TOBACCO COPD (CHRONIC OBSTRUCTIVE PULMONARY DISEASE) : FeNO next visit Indication:COPD (CHRONIC OBSTRUCTIVE PULMONARY DISEASE) COPD (CHRONIC OBSTRUCTIVE PULMONARY DISEASE) : FU 15- Dr. Felipe Huddleston Indication:COPD (CHRONIC OBSTRUCTIVE PULMONARY DISEASE) CHRONIC BRONCHITIS : Discussed possible side effects Indication:CHRONIC BRONCHITIS BRONCHIECTASIS : Continue using flutter device Indication:BRONCHIECTASIS JIGNESH (OBSTRUCTIVE SLEEP APNEA) : Continu e with BIPAP and oxygen Indication:JIGNESH (OBSTRUCTIVE SLEEP APNEA ) MORBID OBESITY : Weight loss encouraged Indication:MORBID OBESITY COPD (CHRONIC OBSTRUCTIVE PULMONARY DISEASE) : FU EITHER - Dr. Felipe Huddleston patient Indication:COPD (CHRONIC OBSTRUCTIVE PULMONARY DISEASE) JIGNESH (OBSTRUCTIVE SLEEP APNEA) : Use bipap nightly Indication:JIGNESH (OBSTRUCTIVE SLEEP APNEA ) JIGNESH (OBSTRUCTIVE SLEEP APNEA) : Start bipap/oxygen overnight; still needs set up Indication:JIGNESH (OBSTRUCTIVE SLEEP APNEA ) MORBID OBESITY : Weight loss encouraged Indication:MORBID OBESITY BRONCHIECTASIS : Continue using flutter device Indication:BRONCHIECTASIS COPD (CHRONIC OBSTRUCTIVE PULMONARY DISEASE) : FU EITHER - Dr. Felipe Huddleston patient Indication:COPD (CHRONIC OBSTRUCTIVE PULMONARY DISEASE) MORBID OBESITY : Weight loss encouraged Indication:MORBID OBESITY COPD (CHRONIC OBSTRUCTIVE PULMONARY DISEASE) : Continue albuterol prn Indication:COPD (CHRONIC OBSTRUCTIVE PULMONARY DISEASE) BRONCHIECTASIS : Continue using flutter device Indication:BRONCHIECTASIS TOXIC EFFECT OF TOBACCO : Smoking cessation - continue with efforts Indication:TOXIC EFFECT OF TOBACCO JIGNESH (OBSTRUCTIVE SLEEP APNEA) : Obtain sleep study Indication:JIGNESH (OBSTRUCTIVE SLEEP APNEA ) GERD (GASTROESOPHAGEAL REFLUX DISEASE) : Avoid triggers Indication:GERD (GASTROESOPHAGEAL REFLU X DISEASE) Results No Known Results No Result Information Available Vital Signs 05-Mar-2021 10:15 Comments: Resting 2 L Pulse Dose SpO2 - 93% Temperature 98.1 f Pulse 90 /min Comments: Pattern: Regular Respiration Rate 14 Comments: Pattern: Unlabore d /min O2 SAT 93 % FiO2 2 L/min Comments: 2L O2 BP Systolic 150 Comments: Patient Position: Sitting; mm[Hg] Cuff Location: Left Arm; Cu ff Size: Standard BP Diastolic 80 Comments: Patient Position: Sitting; mm[Hg] Cuff Location: Left Arm; Cu ff Size: Standard Weight 245 lb Height 66 in BMI 39.54 kg/m2 BSA 2.18 m2 25-Dec-2019 13:10 Weight 245 lb Height 66 in BMI 39.54 kg/m2 BSA 2.18 m2 13-Jun-2019 13:54 Temperature 98.3 f Comments: Method: Tympanic Pulse 78 /min Comments: Pattern: Regular Respiration Rate 16 Comments: Pattern: Unlabore d /min O2 SAT 94 % FiO2 2 L/min Comments: 2L O2 BP Systolic 130 Comments: Patient Position: Sitting; mm[Hg] Cuff Location: Left Arm; Cu ff Size: Standard BP Diastolic 84 Comments: Patient Position: Sitting; mm[Hg] Cuff Location: Left Arm; Cu ff Size: Standard Weight 245 lb Height 66 in BMI 39.54 kg/m2 BSA 2.18 m2 29-Nov-2018 14:13 Comments: Resting 2 L Cody nuous SaO2 - 92% Temperature 98 f Comments: Method: Tympanic Pulse 94 /min Comments: Pattern: Regular Respiration Rate 16 Comments: Pattern: Unlabore d /min O2 SAT 92 % FiO2 2 L/min Comments: 2L O2 BP Systolic 132 Comments: Patient Position: Sitting; mm[Hg] Cuff Location: Left Arm; Cu ff Size: Standard BP Diastolic 80 Comments: Patient Position: Sitting; mm[Hg] Cuff Location: Left Arm; Cu ff Size: Standard Weight 249 lb Height 66 in BMI 40.19 kg/m2 BSA 2.2 m2 30-Aug-2018 11:03 Comments: Resting Room Air SaO2 - 86%Resting 2 L Continuous SaO2 - 97%Exertional 2 L Continuous SaO2 - 92% Temperature 98 f Comments: Method: Tympanic Pulse 90 /min Comments: Pattern: Regular Respiration Rate 16 Comments: Pattern: Unlabore d /min O2 SAT 86 % Comments: Room air BP Systolic 130 Comments: Patient Position: Sitting; mm[Hg] Cuff Location: Left Arm; Cu ff Size: Standard BP Diastolic 82 Comments: Patient Position: Sitting; mm[Hg] Cuff Location: Left Arm; Cu ff Size: Standard Weight 251 lb Height 66 in BMI 40.51 kg/m2 BSA 2.2 m2 28-Jun-2018 11:09 Comments: Resting Room Air SaO2 - 87%Resting 3 L Continuous SaO2 - 94% Temperature 98.8 f Comments: Method: Tympanic Pulse 85 /min Comments: Pattern: Regular Respiration Rate 14 Comments: Pattern: Unlabore d /min O2 SAT 91 % Comments: Room air BP Systolic 136 Comments: Patient Position: Sitting; mm[Hg] Cuff Location: Left Arm; Cu ff Size: Standard BP Diastolic 82 Comments: Patient Position: Sitting; mm[Hg] Cuff Location: Left Arm; Cu ff Size: Standard Weight 247 lb Height 66 in BMI 39.87 kg/m2 BSA 2.19 m2 Advance Directives HIPAA - Effective on 03/05/2021. Effective: Expiration date unspecified 05-Mar-2021 Encounters Office Visit 05-Mar-2021 11:00 Encounter Reason: To 05-Mar-2021 11:09 COPD - The primary Pulmonary Health physician is Dr. Aram Hughes. The last [place] [facility] office visit was 1 year(s) ago. No changes in management were made at the last visit. The Gold Classification is Stage 3: Severe COPD. Symptoms include dyspnea on exertion, wheezing, productive cough and clear sputum production (white). Onset was gradual year(s) ago (reports asthma dx as a child, copd dx many years ago). The episodes occur daily. The patient describes this as severe and unchanged. Symptoms are exacerbated by activity an d recumbency. Symptoms are relieved by inhaler use, use of a nebulizer, supplemental oxygen and rest. Associate d symptoms do not include fever, hemoptysis or upper respiratory infection symptoms. Current treatment includes inhaled albuterol, inhaled long-acting beta-2 agonists, inhaled corticosteroids, supplemental oxygen an d BIPAP. By report there is good compliance with treatment, good tolerance of treatment and fair symptom control. The frequency of exacerbations has been times a year (1x/year, was worse in the past but didn't tolerate daliresp). Pertinent medical history includes smoking (has quit), oxygen dependency, asthma and obstructive slee p apnea (on bipap/oxygen overnight. sleep s better with use), while pertinent medical history does not include prior intubation and ventilator therapy, tracheostomy, pneumonia, congestive heart failure or lung cancer. Past evaluation has included chest x-ray, chest CT and pulmonary function tests., [ADDITIONAL REASON] Sleep follow up - The sleep disorder is characterized as obstructive sleep apnea. The patient gets approximately 8 hours of sleep per night. Current treatment includes BiPAP therapy and oxygen. By report there is good compliance with treatment, good tolerance of treatment and good symptom control. Current symptoms do not includ e nocturnal choking or snoring (sleeps alone, no snorting arousals). Associate d symptoms do not include morning headaches. Since diagnosis the disease has been stable. Encounter Diagnosis: COPD (CHRONIC OBSTRUCTIVE PULMONARY DISEASE), TOXIC EFFECT OF TOBACCO, MORBID OBESITY, JIGNESH (OBSTRUCTIVE SLEEP APNEA), HYPOXEMIA, BRONCHIECTASIS Office Visit 25-Dec-2019 13:00 Encounter Reason: To 25-Dec-2019 13:25 COPD - The primary Pulmonary Health physician is Dr. Aram Hughes. The last [place] [facility] office visit was 7 month(s) ago. Management changes made at the last visit include none (wanted LAMA added, she doesn't recall this and isn't on it). The Gold Classification is Stage 3 : Severe COPD. Symptoms include dyspnea o n exertion, productive cough and clear sputum production [...] hemoptysis or chest pain. Current treatment includes inhale d albuterol, inhaled long-acting beta-2 agonists, inhaled corticosteroids (symbicort 160/4.5 2 puffs bid) and supplemental oxygen (BIPAP with 8 LPM O2 HS and 2 LPM days). By report there is good compliance with treatment , good tolerance of treatment and fair symptom control. The frequency of exacerbations has been times a year (several x/year). Pertinent medical history includes smoking (currently) (did quit for awhile in 2018, now on/off- approx 5 cig/day), oxygen dependency, asthma and obstructive slee p apnea (on bipap/oxygen overnight. sleep s better with use), while pertinent medical history does not include prior intubation and ventilator therapy, tracheostomy, pneumonia, congestive heart failure or lung cancer. Past evaluation has included chest CT (CTA 05/29/18- no PE. noted to have advanced copd/emphysema and bronchiectasis). Encounter Diagnosis: COPD (CHRONIC OBSTRUCTIVE PULMONARY DISEASE), JIGNESH (OBSTRUCTIVE SLEEP APNEA), BRONCHIECTASIS, MORBID OBESITY, TOXIC EFFECT OF TOBACCO Office Visit 13-Jun-2019 14:15 To Encounter Reason: 13-Jun-2019 14:29 COPD - The primary Pulmonary Health physician is Dr. Aram Hughes. The last [place] [facility] office visit was 7 month(s) ago (and sh ruba was hospitalized at [facility] with respiratory s/s and had diverticulitis(with surgical procedure) 05/2019 and started Abx/steroids 06/12 for acute bronchitis.). Management changes made at the last visit include changing the dose of Spiriva to respima t 2.5 daily and adding Daliresp 250 mg/day, and advising flutter valve use and weight loss (respimat makes her itc h - d/c after 2 weeks and never filled Daliresp.). The Gold Classification is Stage 3: Severe COPD. Symptoms include dyspnea on exertion (slightly worse wit h recent cold), wheezing, productive coug h and clear sputum production (thick white, uses acapella bid which helps he r raise mucous). Onset was gradual year(s ) ago (reports asthma dx as a child, copd dx many years ago). The episodes occur daily. The patient describes this as worsening (recently). Symptoms are exacerbated by activity and recumbency. Symptoms are relieved by inhaler use, use of a nebulizer (albuterol), supplemental oxygen and rest. Associate d symptoms include leg edema (on lasix rx ) and upper respiratory infection symptoms, while associated symptoms do not include fever, hemoptysis or chest pain. Current treatment includes inhale d albuterol (prn), inhaled long-acting beta-2 agonists, inhaled [...] dependency, asthma and obstructive sleep apnea (on bipap/oxyge n overnight. sleeps better with use), while pertinent medical history does no t include smoking (has quit) (quit apr 2018), prior intubation and ventilator therapy, tracheostomy, pneumonia, congestive heart failure or lung cancer . The patient is currently able to do activities of daily living with limitations. Past evaluation has included chest CT (CTA 05/29/18- no PE. noted to have advanced copd/emphysema and bronchiectasis). Encounter Diagnosis: COPD (CHRONIC OBSTRUCTIVE PULMONARY DISEASE), CHRONIC BRONCHITIS, BRONCHIECTASIS, JIGNESH (OBSTRUCTIVE SLEEP APNEA), HYPOXEMIA, GERD (GASTROESOPHAGEAL REFLUX DISEASE), HYPERTENSION, ACUTE BRONCHITIS Historical Summary 13-Jun-2019 14:15 To Encounter Reason: 13-Jun-2019 13:17 COPD - The primary Pulmonary Health physician is Dr. Aram Hughes. The last [place] [facility] office visit was 7 month(s) ago. Management changes made at the last visit include changing the dose of Spiriva to respimat 2.5 daily and addin g Daliresp 250 mg/day, and advising flutter valve [...] dependency, asthma and obstructive sleep apnea (on bipap/oxyge n overnight. sleeps better with use), while pertinent medical history does no t include smoking (has quit) (quit apr 2018), prior intubation and ventilator therapy, tracheostomy, pneumonia, congestive heart failure or lung cancer . Past evaluation has included chest CT (CTA 05/29/18- no PE. noted to have advanced copd/emphysema and bronchiectasis). Office Visit 29-Nov-2018 14:15 Encounter Reason: To 29-Nov-2018 15:04 COPD - The primary Pulmonary Health physician is Dr. Aram Hughes. The last [place] [facility] office visit was 3 month(s) ago. The Gold Classification is Stage 3: Severe [...] dependency, asthma and obstructive sleep apnea (on bipap/oxyge n overnight. sleeps better with use), while pertinent medical history does no t include smoking (has quit) (quit apr 2018), prior intubation and ventilator therapy, tracheostomy, pneumonia, congestive heart failure or lung cancer . Past evaluation has included chest CT (CTA 05/29/18- no PE. noted to have advanced copd/emphysema and bronchiectasis). Encounter Diagnosis: COPD (CHRONIC OBSTRUCTIVE PULMONARY DISEASE), BRONCHIECTASIS, JIGNESH (OBSTRUCTIVE SLEEP APNEA), MORBID OBESITY, CHRONIC BRONCHITIS Office Visit 30-Aug-2018 10:57 Encounter Reason: To 30-Aug-2018 12:55 COPD - The primary Pulmonary Health physician is Dr. Aram Hughes. The last [facility] office visit was 2 month(s) ago. Management changes made at the last visit include adding trelegy to replace symbicort- didn't tolerate due to throa t soreness and is back on symbicort and ordering alpha 1 studies- normal. also repeat titration. clarified bipap/oxyge n settings. still needs set up with . The Gold Classification is Stage 3: Severe COPD. Symptoms include dyspnea on exertion, wheezing, productive cough an d clear sputum production (thick white, uses acapella daily which helps her raise mucous). Onset was gradual year(s ) ago (reports asthma dx as a child, copd dx many years ago). The episodes occur daily. The patient describes this as unchanged. Symptoms are exacerbated by activity and recumbency. Symptoms are relieved by inhaler use (symbicort 2 puffs bid, uses rescue daily), use of a nebulizer (has been doing qid/prn), supplemental oxygen and rest. Associate d symptoms do not include fever, hemoptysis, leg edema, upper respirator y infection symptoms or chest pain. Current treatment includes inhaled albuterol, inhaled long-acting beta-2 agonists, inhaled corticosteroids (symbicort 160/4.5 2 puffs bid) and supplemental oxygen. By report there is good compliance with treatment, good tolerance of treatment and fair symptom control. The frequency of exacerbations has been 1 times a year. Pertinent medical history includes oxygen dependency, asthma and obstructive slee p apnea, while pertinent medical history does not include smoking (has quit) (quit apr 2018), prior intubation and ventilator therapy, tracheostomy, pneumonia, congestive heart failure or lung cancer. Past evaluation has included chest CT (CTA 05/29/18- no PE. noted to have advanced copd/emphysema and bronchiectasis). Encounter Diagnosis: COPD (CHRONIC OBSTRUCTIVE PULMONARY DISEASE), JIGNESH (OBSTRUCTIVE SLEEP APNEA), MORBID OBESITY, BRONCHIECTASIS Historical Summary 15-Aug-2018 11:53 To 15-Aug-2018 12:00 Pulmonary [facility] Office Order Only 28-Jun-2018 16:13 Encounter Diagnosis: To 28-Jun-2018 16:15 JIGNESH (OBSTRUCTIVE SLEEP Pulmonary Health APNEA) [facility] Historical Summary 28-Jun-2018 15:08 To 28-Jun-2018 15:17 [facility] Office Office Visit 28-Jun-2018 10:30 Encounter Reason: To 28-Jun-2018 14:15 COPD - The primary Pulmonary Health physician is Dr. Aram Hughes. The Gold [place] Classification is Stage 3: Severe COPD. Symptoms include dyspnea on exertion, wheezing, productive cough and clear sputum production (thick white, uses acapella daily which helps her raise mucous). Onset was gradual year(s) ago (reports asthma dx as a child, copd dx many years ago. tends to get bronchitis 1x/year that is usually treated with ab x and prednisone. denies any pneumonia). The episodes occur daily. The patient describes this as worsening. Symptoms are exacerbated by activity and recumbency. Symptoms are relieved by inhaler use (symbicort 2 puffs bid, use s rescue < 1x/week), use of a nebulizer (has been doing qid/prn), supplemental oxygen and rest. Associated symptoms include leg edema (occ), while associated symptoms do not include fever, hemoptysis or upper respiratory infection symptoms. Current treatment includes inhaled albuterol, inhaled long-acting beta-2 agonists, inhaled corticosteroids (symbicort 160/4.5 2 puffs bid) and supplemental oxygen. By report there is good compliance with treatment, good tolerance of treatment and fair symptom control. The frequency of exacerbations has been 1 times a year. Pertinent medical history include s oxygen dependency, asthma and obstructive sleep apnea, while pertinen t medical history does not include smokin g (has quit) (quit apr 2018), prior intubation and ventilator therapy, tracheostomy, pneumonia, congestive heart failure or lung cancer. Past evaluation has included chest CT (CTA 05/29/18- no PE. noted to have advanced copd/emphysema and bronchiectasis)., [ADDITIONAL REASON] Sleep follow up - The sleep disorder is characterized as obstructive sleep apnea (dx approx november 2017 with echocardiography radiology technologist. tried cpap at home x 2 months. didn't tolerate. would wake up gasping). The patient gets approximatel y 6 hours (3 hrs overnight and then naps during the day) of sleep per night. Current treatment includes oxygen. By report there is poor symptom control. Current symptoms include excessive daytime sleepiness, nocturnal choking (gasping), snoring, sleepiness when sedentary and unrefreshing sleep. The episodes occur daily. The patient describes this as worsening. Associated symptoms include shortness of breath, while associated symptoms do not includ e morning headaches. Since diagnosis the disease has been worsening. Pertinent medical history includes obesity and chronic obstructive pulmonary disease. Initial diagnosis of sleep disorder was month(s) ago. Past evaluation has included nighttime sleep study. Past treatment has included CPAP therapy. Encounter Diagnosis: COPD (CHRONIC OBSTRUCTIVE PULMONARY DISEASE), TOXIC EFFECT OF TOBACCO, HYPOXEMIA, JIGNESH (OBSTRUCTIVE SLEEP APNEA), GERD (GASTROESOPHAGEAL REFLUX DISEASE), BRONCHIECTASIS, MORBID OBESITY Historical Summary 27-Jun-2018 15:43 To 27-Jun-2018 16:02 Pulmonary [facility] Office Visit 27-Jun-2018 14:21 To 27-Jun-2018 14:24 [facility] Office Payers [facility] Medicare Group Number: NONE [address] [address] [facility] [address] tel: Medicaid/[employer] C Group Number: NONE [address] [facility] [address] [place] tel: [place] Group Number: NONE [address] [facility] [address] tel: [place] [address] tel:
--- OUTSIDE RECORDS SUMMARY | 2021-05-10 14:18 | CCD ---
Author Author [employer] Organization [employer] Address Unknown Phone Unavailable Care Team Providers Care Account Retention Representative Name Role Phone Unavailable Unavailable Problems Condition Name Condition Details Condition Category Status Onset Date Resolution Date Last Treatment Date Treating Clinician Comments Infection following a procedure, other surgical site, subsequent encounter Infection following a procedure, other surgical site, subsequent encounter Diagnosis Active Phyllis Acekrman Encounter for attention to colostomy Encounter for attention to colostomy Diagnosis Active Phyllis Ackerman 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 Diagnosis Active Phyllis Ackerman Hypertensive heart disease with heart failure Hyperten sive heart disease with heart failure Diagnosis Active Phyllis Ackerman Heart failure, unspecified Heart failure, unspecified Diagnosis Active Phyllis Ackerman Type 2 diabetes mellitus without complications Type 2 diabetes mellitus without complications Diagnosis Active Phyllis Ackerman Pulmonary hypertension, unspecified Pulmonary hypertension, unspecified Diagnosis Active Phyllis Ackerman Gastro-esophageal reflux disease without esophagitis G rosanne-esophageal reflux disease without esophagitis Diagnosis Active Gerda Ackerman Chronic obstructive pulmonary disease, unspecified Chr onic obstructive pulmonary disease, unspecified Diagnosis Active Phyllis Ackerman Obstructive sleep apnea (adult) (pediatric) Obstructiv e sleep apnea (adult) (pediatric) Diagnosis Active Phyllis Ackerman Diverticulosis of intestine, part unspec ified, without perforation or abscess without bleeding Diverticulosis of intestine, part unspec ified, without perforation or abscess without bleeding Diagnosis Active Phyllis Ackerman Morbid (severe) obesity due to excess calories Morbid (severe) obesity due to excess calories Diagnosis Active Phyllis Ackerman Fatty (change of) liver, not elsewhere classified Fatt y (change of) liver, not elsewhere classified Diagnosis Active Phyllis Ackerman Personal history of nicotine dependence Personal history of nicotine dependence Diagnosis Active Phyllis Ackerman Dependence on supplemental oxygen Dependence on supplemental oxy gen Diagnosis Active Phyllis Ackerman [facility] (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 Diagnosis Active Phyllis Ackerman Urinary tract infection, site not specified Urinary tr act infection, site not specified Diagnosis Active Phyllis Ackerman Peripheral vascular disease, unspecified Peripheral va scular disease, unspecified Diagnosis Active Phyllis Ackerman Respiratory oxygen treatments in home Respiratory Active 2020-12-02 Veronica Mays Pain frequent pain Pain Mgmt Resolved 2020-12-02 12:15:00 2021-03-19 13:30:00 Veronica Mays Pain knowledge/skill deficit: pt Pain Mgmt Resolved 12:15:00 2021-03-19 13:30:00 Veronica Mays Cardio edema Cardiovascular Active 2020-12-02 12:15:00 Veronica Mays Cardio knowledge/skill deficit: pt Cardiovascular Active 2020-11 12:15:00 Veronica Mays Respiratory dyspnea present Respiratory Active 2020-12-02 12:15:00 Veronica Mays Respiratory knowledge/skill deficit: pt Respiratory Active 12-02 12:15:00 Veronica Mays Respiratory lung sounds deficit Respiratory Active 2020-12-02 12:15:00 Veronica Mays Respiratory CPAP treatments in home Respiratory Active 2020-12-02 12:15 :00 Veronica Mays Respiratory BiPAP treatments in home Respiratory Active 2020-12-02 12:1 5:00 Veronica Mays Endo/Roman knowledge/skill deficit: pt Endo/Roman Active 2020-12-02 12:15 :00 Veronica Mays Endo/Roman anti-coagulation therapy Endo/Roman Active 2020-12-02 12:15:00 Veronica Mays Integument surgical wound present Integument Active 2020-12-02 12:15:00 Veronica Mays Integument knowledge/skill deficit: pt Integument Active 2020-12-02 12:15:00 Veronica Mays Nutrition knowledge/skill deficit: pt Nutrition Active 2020-12-02 12:15 :00 Veronica Mays Nutrition nutritional restrictions Nutrition Active 2020-12-02 12:15:00 Samara De Santiago Elimination urinary incontinence Elimination Active 2020-12-02 12:15:00 Veronica Mays Elimination ostomy present Elimination Active 2020-12-02 12:15:00 Veronica Davon Elimination nausea/vomiting Elimination Active 2020-12-02 12:15:00 Veronica Davon Neuro confusion present Neuro/Emotion Active 2020-12-02 12:15:00 Veronica Davon Activity ADL assistance required Activity Active 2020-12-02 12:15:00 Veronica Davon Activity knowledge/skill deficit: pt Activity Resolved 12:15:00 2021-05-05 13:50:00 Veronica Davon Activity self-care deficit Activity Active 2020-12-02 12:15:00 Veronica Davon Safety knowledge/skill deficit: pt Safety Resolved 12:15:00 2021-05-05 13:50:00 Veronica Davon Safety fall risk factor present Safety Resolved 2020-12-02 12:15:00 2021-05-05 13:50:00 Veronica Davon Safety risk for hospitalization Safety Resolved 2020-12-02 12:15:00 2021-05-05 13:50:00 Veronica Davon Medication oral med assistance required Meds Resolved 2020-11 12:15:00 2021-05-05 13:50:00 Veronica Davon Medication knowledge/skill deficit: pt Meds Resolved 12:15:00 2021-05-05 13:50:00 Veronica Davon Medication potential clinically significant medication issue Meds Resolved 2020-12-02 12:15:00 2021-05-05 13:50:00 Veronica Davon Diagnoses knowledge/skill deficit: pt Diagnoses Resolved 12:15:00 2021-05-05 13:50:00 Veronica Davon Musculoskeletal transfer assistance required Musculoskeletal Resolv ed 2020-12-02 12:15:00 2021-05-05 13:50:00 Veronica Davon Musculoskeletal requires human assist to leave home Musculoskeletal Resolved 2020-12-02 12:15:00 2021-05-05 13:50:00 Veronica Davon Cath/Ostomy/GI k/s deficit: cath/ost/GI care - pt Cath\Ostomy\GI Ca re Resolved 2020-12-02 12:15:00 2021-05-05 13:50:00 Veronica Mays Infection s/s of infection Infection Resolved 2020-12-23 09:50:00 2021-05-05 13:50:00 Phyllis Ackerman Endo/Roman glucose tolerance problem Endo/Roman Active 2021-01-14 12:20:0 0 Veronica Mays Endo/Roman k/s deficit hypo/hyperglycemia: pt Endo/Roman Active 2021-01-14 12:20:00 Veronica Mays Musculoskeletal transfer assistance required Musculoskeletal Unknow n 2021-01-14 12:20:00 Veronica Mays Musculoskeletal requires human assist to leave home Musculoskeletal Unknown 2021-01-14 12:20:00 Veronica Mays Elimination UTI within past 14 days Elimination Resolved 2021-01-20 12:42:00 2021-02-24 08:06:00 Tremaine Sanabria Respiratory Incentive Spirometer /Acapella Device tr eatments in home Respiratory Active 2021-02-24 08:06:00 Tootie proctor Respiratory nebulizer treatment in home Respiratory Active 02-24 08:06:00 Tootie Armenta Endo/Roman diabetic foot care Endo/Roman Active 2021-02-24 08:06:00 Tootie Armenta Integument skin integrity risk Integument Active 2021-02-24 08:06:00 Tootie Armenta Elimination bowel incontinence Elimination Active 2021-02-24 08:06:00 Tootie Armenta Safety cannot be left alone Safety Active 2021-02-24 08:06:00 Tootie Armenta Musculoskeletal requires special transportation Musculoskeletal Res olved 2021-02-24 08:06:00 2021-05-05 13:50:00 Tootie Armenta Balance/Endurance balance/coordination deficit PT/OT: Balance/En durance Resolved 2021-03-10 10:28:00 2021-03-31 08:54:00 Bre Ceballos Gait/Locomotion problems gait deficit PT/OT: Gait/Locomotion Resolv ed 2021-03-10 10:28:00 2021-03-31 08:54:00 Bre Ceballos Safety can be left alone for only short periods Safety Active 2021-03-31 15:20:00 Phyllis Ackerman Allergies, Adverse Reactions, Alerts Allergy Name Allergy Type Status Severity Reaction(s) Onset Date Inacti ve Date Treating Clinician Comments erythromycin base Base Ingredient Active Unknown Reaction Unknown 06-05 [facility] tetracycline Base Ingredient Active Unknown Reaction Unknown 2018-06-05 [facility] venlafaxine Base Ingredient Active Unknown Reaction Unknown 2018-06-05 [facility] aripiprazole Base Ingredient Active Unknown Reaction Unknown 2018-06-05 [facility] Penicillins Allergen Group Active Unknown Reaction Unknown 2018-06-05 [facility] Sulfa (Sulfonamide Antibiotics) Allergen Group Active Unknown Reaction Unknown 2018-06-05 [facility] Quinolones Allergen Group Active Unknown Reaction Unknown 2018-06-05 [facility] metronidazole Base Ingredient Active Unknown Reaction Unknown 2020-11-05 9 Veronica Davon Macrolide Antibiotics Allergen Group Active Unknown Reaction Unkn own 2020-12-02 Veronicashwetha Sanchezderick Ketolides Unknown Active Unknown Reaction Unknown 2020-12-02 Je shwetha Sanchezderick Medications Ordered Medication Name Filled Medication Name Start Date Stop Da te Current Medication? Ordering Clinician Indication Dosage Frequency Signature (SIG) Comments Components lidocaine 4 % topical patch lidocaine 4 % topical patch 2020-12-02 No JENELLE VALDEZ Unknown Unknown ProAir HFA 90 mcg/actuation aerosol inhaler ProAir HFA 90 mcg/actuation aerosol inhaler 2020-12-02 No JENELLE VALDEZ Unknown Unknown polyethylene glycol 3350 17 gram/dose oral powder poly ethylene glycol 3350 17 gram/dose oral powder 2020-12-02 No JENELLE VALDEZ Unknown Unknow n Symbicort 160 mcg-4.5 mcg/actuation HFA aerosol inhale r Symbicort 160 mcg-4.5 mcg/actuation HFA aerosol inhaler 2020-12-02 No JENELLE VALDEZ Unknown Unknown Supplemental oxygen Supplemental oxygen 2020-12-02 No JENELLE VILLANUEVA Unknown Unknown HYDROcodone 5 mg-acetaminophen 325 mg tablet HYDROcodo ne 5 mg-acetaminophen 325 mg tablet 2020-12-04 2021-01-20 No JENELLE VALDEZ Unknown Unknown tiotropium bromide 18 mcg capsule with inhalation [place] ce tiotropium bromide 18 mcg capsule with inhalation device 2020-12-04 2020-12-04 JENELLE Lew Unknown Unknown Aspirin Low Dose 81 mg tablet,delayed release Aspirin Low Dose 81 mg tablet,delayed release 2020-12-04 No JENELLE VLADEZ Unknown Unkno wn furosemide 40 mg tablet furosemide 40 mg tablet 2020-12-04 No JENELLE VALDEZ Unknown Unknown pantoprazole 40 mg tablet,delayed release pantoprazole 40 mg tablet,delayed release 2020-12-04 No JENELLE VALDEZ Unknown Unknown albuterol sulfate 2.5 mg/3 mL (0.083 %) solution for n ebulization albuterol sulfate 2.5 mg/3 mL (0.083 %) solution for nebulization 2020-12-042020 No JENELLE VALDEZ Unknown Unknown Spiriva with HandiHaler 18 mcg and inhalation capsules Spiriva with HandiHaler 18 mcg and inhalation capsules 2020-12-04 2021-01-25 No JENELLE VALDEZ Unknown Unknown ondansetron 4 mg disintegrating tablet ondansetron 4 mg disi ntegrating tablet 2020-12-09 JENELLE Lew Unknown Unknown nystatin (bulk) 10 billion unit powder nystatin (bulk) 10 bi llion unit powder 2020-12-12 2020-12-30 JENELLE Lew Unknown Unknown nitrofurantoin monohydrate/macrocrystals 100 mg capsul e nitrofurantoin monohydrate/macrocrystals 100 mg capsule 2020-12-19 2020-12-30 JENELLE Lino Unknown Unknown predniSONE 10 mg tablet predniSONE 10 mg tablet 2020-12-23 2020-12-30 JENELLE Lew Unknown Unknown Aspercreme (lidocaine HCL) 4 % topical Aspercreme (lidocaine HCL) 4 % topical 2020-12-30 No JENELLE VALDEZ Unknown Unknown predniSONE 20 mg tablet predniSONE 20 mg tablet 2020-12-30 2021-01-06 JENELLE Lew Unknown Unknown nystatin (bulk) 10 billion unit powder nystatin (bulk) 10 bi llion unit powder 2020-12-30 No JENELLE VALDEZ Unknown Unknown doxycycline monohydrate 100 mg capsule doxycycline monohydra te 100 mg capsule 2021-01-06 2021-01-20 JENELLE Lew Unknown Unknown predniSONE 20 mg tablet predniSONE 20 mg tablet 2021-01-06 2021-01-14 No JENELLE VALDEZ Unknown Unknown traMADoL 50 mg tablet traMADoL 50 mg tablet 2021-01-14 No JENELLE LIMA Unknown Unknown metFORMIN ER 500 mg 24 hr tablet,extended release metF ORMIN ER 500 mg 24 hr tablet,extended release 2021-01-14 No JENELLE VALDEZ Unknown Unkn own predniSONE 10 mg tablet predniSONE 10 mg tablet 2021-01-14 2021-01-27 No JENELLE VALDEZ Unknown Unknown predniSONE 20 mg tablet predniSONE 20 mg tablet 2021-02-24 2021-02-26 Yes JENELLE VALDEZ Unknown Unknown ipratropium 0.5 mg-albuteroL 3 mg (2.5 mg base)/3 mL n ebulization soln ipratropium 0.5 mg-albuteroL 3 mg (2.5 mg base)/3 mL nebulization soln 2021-02-24 Yes JENELLE VALDEZ Unknown Unknown fluticasone propionate 50 mcg/actuation nasal spray,taylor spension fluticasone propionate 50 mcg/actuation nasal spray,suspension 2021-02-24 Yes JENELLE VALDEZ Unknown Unknown guaiFENesin 100 mg/5 mL oral liquid guaiFENesin 100 mg/5 mL oral liquid 2021-02-24 Yes JENELLE VALDEZ Unknown Unknown HYDROcodone 5 mg-acetaminophen 325 mg tablet HYDROcodo ne 5 mg-acetaminophen 325 mg tablet 2021-02-24 2021-03-31 Yes JENELLE VALDEZ Unknown Unknown Incruse Ellipta 62.5 mcg/actuation powder for inhalati on Incruse Ellipta 62.5 mcg/actuation powder for inhalation 2021-03-05 Yes JENELLE VALDEZ Unknown Unknown Vital Signs Vital Name Observation Time Observation Value Comments SYSTOLIC mm[Hg] 2021-05-05 18:21:18 128 mm[Hg] mm[Hg] Method: Si t DIASTOLIC mm[Hg] 2021-05-05 18:21:18 72 mm[Hg] mm[Hg] Method: Si t PULSE 2021-05-05 18:21:18 76 /min /min RESP RATE 2021-05-05 18:21:18 20 /min /min TEMP 2021-05-05 18:21:18 97.8 [degF] Procedures This patient has no known procedures. Results This patient has no known results.
--- OUTSIDE RECORDS SUMMARY | 2021-05-10 14:18 | CCD | Continuity of Care Document ---
Author Author Hydrologist, [facility] Organization Unknown Address Unknown Phone Unavailable Care Team Providers Care Broker Assistant Name Role Phone Saul SETHI, Neo aram Unavailable Neo Hughes MD aram Unavailable Blanca SETHI, Xireilly Unavailable [facility] Unavailable Chandana Huddleston DO Unavailable [facility], [place] Unavailable Ashely Naranjo LPN Unavailable Unavailable Unavailable Problems ACUTE HYPOXEMIC RESPIRATORY FAILURE Onset: Feb-2018 Co mments: admitted to [facility] (J96.01) (518.81) [facility], center [place] BRONCHIECTASIS (J47.9) (494.0) [facility], [place] CHRONIC BRONCHITIS (J42) (491.9) [facility], [place] COPD (CHRONIC OBSTRUCTIVE PULMONARY [facility] , DISEASE) (J44.9) (496) [place] Prognosis: routine visit. was admitted with copd exacerbation last month, has improved. insurance will cover LAMA now . restart incruse with symbicort. use rescue prn. still needs 2 liters oxygen during the day. up to 8 liters bled int o bipap. uses bipap regularly with benefit. hasn't smoked in a few months, encouraged watermaster cessation. spirometry has severe obstruction, stable. monitor exacerbations. didn't' tolerate daliresp in the past. has incentive. follow up in a few months with testing, sooner prn. plan of care approved by Dr. Gucci Rios as of 05-Mar-2021 DEPRESSION (F32.9) (311) [facility], [place] GERD (GASTROESOPHAGEAL REFLUX DISEASE) [facility], (K21.9) (530.81) [place] HYPERTENSION (I10) (401.9) [facility], [place] HYPOXEMIA (R09.02) (799.02) [facility], [place] MORBID OBESITY (E66.01) (278.01) [facility], [place] JIGNESH (OBSTRUCTIVE SLEEP APNEA) (G47.33) [facility], (327.23) [place] PVD (PERIPHERAL VASCULAR DISEASE) [facility], (I73.9) (443.9) [place] TOXIC EFFECT OF TOBACCO (T65.291A) [facility], (989.84) [place] URINARY INCONTINENCE (R32) (788.30) [facility] , [place] Allergies and Adverse Reactions Abilify [...] Start: 05-Mar-2021 Aerosol Powder Breath Activated; 1 [facility] , (one) Puff daily for 30 days Samara Quantity: 1 {Each} Refills: 11 Ipratropium-Albuterol 0.5-2.5 (3) MG/3ML Ordered: 021 Start: 05-Mar-2021 Inhalation Solution; 1 (one) Vial four [facility], Comments: Medication taken as needed. 2 [...] liters- up to 8L with bipap continuous [facility] admission, feb 2018 ProAir HFA 108 (90 Base) MCG/ACT Comments: Medicati on taken as needed. Inhalation Aerosol Solution; 2 puffs every four hours, as needed (108 (90 Base) MCG/ACT) Symbicort 160-4.5 MCG/ACT Inhalation Ordered: 30-Aug-2018 Start: 30-Aug-2018 Aerosol; 2 puffs Puff two times daily [facility], for 30 days Samara Quantity: 1 {Inhaler} Refills: 11 Daliresp 250 MCG Oral Tablet; 1 (one) Ordered: 9 Start: 29-Nov-2018 End: 27-Dec-2018 Tablet daily for 28 days [facility], Status: Inact emily Quantity: 28 {Tablet} Samara Comments: starte r pack Refills: 0 Daliresp 500 MCG Oral Tablet; 1 (one) Ordered: 0 Start: 13-Jun-2019 End: 25-Dec-2019 Tablet daily for 30 days [facility], Status: Inact emily Quantity: 30 {Tablet} Samara Refills: 5 Nicotine 21 MG/24HR Transdermal Patch 24 Status: In active Hour; 1 daily (21 MG/24HR) RaNITidine HCl 150 MG Oral Tablet; 2 Status: Inact emily daily (150 MG) Spiriva HandiHaler 18 MCG Inhalation Ordered: 14-Oct-2020 Start: 14-Oct-2020 End: 13-Nov-2020 Capsule; 1 (one) Capsule daily for 30 [facility], Status: Inactive days Comments: replacing incruse Quantity: 30 {Capsule} Refills: 0 Trelegy Ellipta 100-62.5-25 MCG/INH Ordered: 30-Aug-2018 Start: 28-Jun-2018 End: 30-Aug-2018 Inhalation Aerosol Powder Breath [facility], Statu s: Inactive Activated; 1 (one) Puff daily for 30 Samara days Quantity: 1 {Inhaler} Refills: 3 Spiriva Respimat 2.5 MCG/ACT Inhalation Ordered: 0 Start: 29-Nov-2018 End: 13-Jun-2019 Aerosol Solution; 2 (two) Puff Puff Status: Discon tinued daily for 30 days Comments: has not been usin g- states it Quantity: 1 {Inhaler} makes her body itch Refills: 11 Procedures PRE AND POST (46500) Status: Completed 05-Mar-20 EXHALED NITRIC OXIDE MEASUREMENT (41885) Status: Co mpleted 13-Jun-2019 EXHALED GAS NITRIC OXIDE MEASUREMENT Status: Catie dasilva 29-Nov-2018 (MOLES/VOLUME) (47524) PRE AND POST W/ RT (90173) Status: Completed REST/EXERCISE OXIMETRY (14595) Status: Completed EXHALED GAS NITRIC OXIDE MEASUREMENT Status: Catie dasilva 30-Aug-2018 (MOLES/VOLUME) (71292) AIRFLOW RESISTANCE MEASUREMENT: PULM Status: Catie dasilva 30-Aug-2018 FUNCT TEST OSCILLOMETRY (09314) TOTAL VITAL CAPACITY (02520) Status: Completed THORACIC GAS VOLUME: AIRWAY CLOSING Status: Complet ed 30-Aug-2018 VOLUME MEASUREMENT: PULM FUNCTION TEST BY GAS (49997) DLCO (CARBON MONOXIDE DIFFUSING Status: Completed 2 10-Aug-2018 CAPACITY) (84543) PRE AND POST (53331) Status: Completed 31-Aug-19 19 PRE AND POST (77221) Status: Completed 28-Jun-19 19 Alpha 1 Status: Completed 06-Jul-19 Comments: Normal. Cataracts Status: Completed Comments: Left. Chest X-ray Status: Completed 26-Feb-20 17 Comments: hyperinflation, NAD CPAP Status: Completed 9 Comments: bipap with 8 liters oxygen bled in CTA Status: Completed 29-May-20 18 Comments: no emboli, advanced copd/emphysema, moderate bronchiectasis [place] Sleepines Score Status: Completed 28-Jun-19 Comments: 11 [...] AHI 5.2/hr, LS 91% PRE AND POST (51218)Result: Hemoptysis: Status: Comp leted No 13-Jun-2019 CXR PA & LAT (67126)Result: Are you Status: Complete d or could you become ?: 13-Jun-2019 No; When was you last CXR/CT?: over a week ago; Senior Power Scheduler: BRENDEN Evans [place] Sleepiness ScaleResult: Status: Completed [Situation] Sitting and [...] [Total] Score: 11 CXR PA & LAT (63963)Result: Are you Status: Complete d or could you become ?: 28-Jun-2018 No; When was you last CXR/CT?: OVER A WEEK AGO; Senior Power Scheduler: BRENDEN Evans Family History Emphysema Status: Active [...] THORAX W/O DYE Start: 20-Jun-2021 I ntent (24155) PRE AND POST (22886) Start: 20-Jun-2021 Intent REST OXIMETRY (16618) Start: 13-Jun-2019 Intent CPAP (80676) Start: 28-Jun-2018 Intent Comments: didn't tolerate cpap, wants bipap which she found more comfortable during a hospitalization PULMONARY REHAB (INCLUDES MONITORING) Start: 28-Jun-2018 Intent (G0424) Medical; PRE AND POST PFT - 4 MNTH FU Start: 06-Jul-2021 Appointment Request , PP, CT 14:30 Pulmonary [facility] Office Resp Therapy [place] 2, RT2 Medical; CT SCAN CHEST - 4 MNTH FU Start: 06-Jul-2021 Lisa ointment Request , PP, CT 14:45 Pulmonary Health [facility] XRAY [place], Xray Medical; FOLLOW UP 30 - 4 MNTH FU , Start: 2 Appointment Request PP, CT 15:00 Pulmonary [facility] MSN NPC, Samara [id number] (13487) Start: 28-Jun-[address] 13:44 COPD (CHRONIC [...] OBSTRUCTIVE PULMONARY DISEASE) : [place] Indication:COPD (CHRONIC OBSTRUCTIVE PULMONARY DISEASE) COPD (CHRONIC [...] physician is Dr. Aram Hughes. The last [place] [facility] office visit was 1 year(s) ago. [...] physician is Dr. Aram Hughes. The last [place] [facility] office visit was 7 month(s) ago. [...] physician is Dr. Aram Hughes. The last [place] [facility] office visit was 7 month(s) ago (and sh ruba was hospitalized at [facility] with respiratory s/s and had diverticulitis(with surgical [...] physician is Dr. Aram Hughes. The last [place] [facility] office visit was 7 month(s) ago. [...] physician is Dr. Aram Hughes. The last [place] [facility] office visit was 3 month(s) ago. [...] physician is Dr. Aram Hughes. The last [place] [facility] office visit was 2 month(s) ago. [...] Summary 15-Aug-2018 11:53 To 15-Aug-2018 12:00 Pulmonary [facility] Office Order Only 28-Jun-2018 16:13 Encounter Diagnosis: To 28-Jun-2018 16:15 JIGNESH (OBSTRUCTIVE SLEEP Pulmonary Health APNEA) [facility] Historical Summary 28-Jun-2018 15:08 To 28-Jun-2018 15:17 [facility] Office Visit 28-Jun-2018 10:30 Encounter Reason: To 28-Jun-2018 14:15 COPD - The primary Pulmonary Health physician is Dr. Aram Hughes. The Gold [place] Office Classification is Stage 3: Severe COPD. [...] sleep apnea (dx approx november 2017 with assembler tester. tried cpap at home x 2 months. [...] Summary 27-Jun-2018 15:43 To 27-Jun-2018 16:02 Pulmonary [facility] Office Office Visit 27-Jun-2018 14:21 To 27-Jun-2018 14:24 [facility] Office Payers [facility] Medicare Group Number: NONE [address] [address] [facility] [address] tel: Medicaid/Comp Science C Group Number: NONE [address] [facility] [address] [place] tel: [place] Group Number: NONE [address] [facility] [address] tel: [address] [address] tel:
--- OUTSIDE RECORDS SUMMARY | 2021-05-10 14:18 | CCD | Continuity of Care Document ---
Author Author Rossana PA MD Organization Unknown Address [address] [place] [address] Phone [phone] Care Team Providers Care Grinder And Honer Operator Automatic Name Role Phone Bacilio Hughes M.D. AUTM [phone] AUTM Unavailable Problems Active Problems Provider Date [...] stated BMI (Body Mass Index) 38.4 kg/m2 [place] Body Weight 135 lb Weight 111.132 kg BSA (Body Surface Area) 2.20 m2 03/09/2021 1:39pm BP Systolic 144 mmHg BP Diastolic 84 mmHg Heart Rate 105 /min Body Temperature 98.2 F Height 67 inches 5'7" Weight 245.00 lb BMI (Body Mass Index) 38.4 kg/m2 [place] Body Weight 135 lb Weight 111.132 kg BSA (Body Surface Area) 2.20 m2 Results Description No Information Available Procedures Date Code Description Status 04/15/2021 96732 Office/Outpatient Established SF MDM 10-19 Min Completed 03/09/2021 11950 Office/Outpatient Established SF MDM 10-19 Min Completed 01/21/2021 82230 Office/Outpatient Established Lo w MDM 20-29 Min Completed Medical Devices Description No Information Available Encounters Type Date Location Provider Dx Diagnosis Office Visit 04/15/2021 1:15p [facility] Jim salinas JR, MD S31.105D Unsp opn wnd abd wall, periumb rgn w/o p enet perit cav, subs Office Visit 03/09/2021 2:30p [facility] Jim salinas JR, MD S31.105D Unsp opn wnd abd wall, periumb rgn w/o p enet perit cav, subs Office Visit 01/21/2021 3:45p [facility] Jim salinas JR, MD S31.105D Unsp opn wnd abd wall, periumb rgn w/o p enet perit cav, subs Office Visit 12/29/2020 1:00p [facility] MONICA Jean K56.609 Unsp intestnl obst, unsp as to partial v ersus complete obst Z48.815 Encntr for surgical [facility]cr [email or web address] sys Z93.3 Colostomy status Office Visit 12/11/2020 9:45a [facility] MONICA Jean K56.609 Unsp intestnl obst, unsp as to partial v ersus complete obst Z48.815 Encntr for surgical aftcr fo [facility]ing surgery on [email or web address] sys Office Visit 11/26/2020 1:00p [facility] Jim salinas JR, MD S31.105D Unsp opn wnd abd wall, periumb rgn w/o p enet perit cav, subs Z48.815 Encntr for surgical aftcr fo [facility]ing surgery on [email or web address] sys Office Visit 11/20/2020 1:45p [facility] MONICA Jean K56.609 Unsp intestnl obst, unsp as to partial v ersus complete obst Z48.815 Encntr for surgical aftcr fo [facility]ing surgery on [email or web address] sys Assessments Date Code Description Provider 04/15/2021 [...] pm - Jim Pa JR, MD at [facility] 04/15/2021 - Jim Pa JR, MD* [...]
--- OUTSIDE RECORDS SUMMARY | 2021-05-10 14:18 | CCD | Continuity of Care Document ---
Author Author Rossana PA MD Organization Unknown Address [address] [place] [address] Phone [phone] Care Team Providers Care Center Sales And Service Associate Name Role Phone Bacilio Hughes M.D. AUTM [phone] AUTM Unavailable Problems Active Problems Provider Date [...] Available Vital Signs Date Vital Result Comment 03/09/2021 1:39pm BP Systolic 144 mmHg BP Diastolic 84 mmHg Heart Rate 105 /min Body Temperature 98.2 F Height 67 inches 5'7" Weight 245.00 lb BMI (Body Mass Index) 38.4 kg/m2 [place] Body Weight 135 lb Weight 111.132 kg BSA (Body Surface Area) 2.20 m2 01/21/2021 3:04pm BP Systolic 132 mmHg BP Diastolic 75 mmHg Heart Rate 84 /min Body Temperature 98.0 F Height 67 inches 5'7" Weight 232.00 lb BMI (Body Mass Index) 36.3 kg/m2 [place] Body Weight 135 lb Weight 105.235 kg BSA (Body Surface Area) 2.15 m2 Results Description No Information Available Procedures Date Code Description Status 01/21/2021 60136 Office/Outpatient Established Lo w MDM 20-29 Min Completed 10/25/2020 38168 Critical Care First 30-74 Minute s Completed 10/24/2020 76004 Critical Care Addl 30 Min Comple vidya 10/24/2020 25591 Critical Care First 30-74 Minute s Completed 10/23/2020 07520 Critical Care Addl 30 Min Comple vidya 10/23/2020 02108 Critical Care First 30-74 Minute s Completed 10/22/2020 80520 Critical Care Addl 30 Min Comple vidya 10/22/2020 69331 Critical Care First 30-74 Minute s Completed 10/22/2020 90883 Ultrasound Guidance For Vascular Access Requiring Ultrasound Eval Completed 10/22/2020 71084 Insertion Of Non-Rajinder neled Centrally Inserted Central Venous Mónica Completed Medical Devices Description No Information Available Encounters Type Date Location Provider Dx Diagnosis Office Visit 01/21/2021 3:45p [facility] Jim salinas JR, MD S31.105D Unsp opn wnd abd wall, periumb rgn w/o p enet perit cav, subs Office Visit 12/29/2020 1:00p [facility] MONICA Jean K56.609 Unsp intestnl obst, unsp as to partial v ersus complete obst Z48.815 Encntr for surgical aftcr fo llowing surgery on the [facility] sys Z93.3 Colostomy status Office Visit 12/11/2020 9:45a [facility] MONICA Jean K56.609 Unsp intestnl obst, unsp as to partial v ersus complete obst Z48.815 Encntr for surgical aftcr fo [facility]lowing surgery on the [facility] sys Office Visit 11/26/2020 1:00p [facility] Jim salinas JR, MD S31.105D Unsp opn wnd abd wall, periumb rgn w/o p enet perit cav, subs Z48.815 Encntr for surgical aftcr fo llowing surgery on the [facility] sys Office Visit 11/20/2020 1:45p [facility] MONICA Jean K56.609 Unsp intestnl obst, unsp as to partial v ersus complete obst Z48.815 Encntr for surgical aftcr fo [facility]lowing surgery on the [facility] sys Office Visit 10/25/2020 1:23a [facility] Pulmonary/Thoracic Rasheed Eubanks D.O K56.609 Unsp intestnl obst, unsp as to partial versus complete obst J96.00 Acute respiratory failure, u nsp w hypoxia or hypercapnia E83.39 Other disorders of phosphoru s metabolism J44.9 Chronic obstructive pulmonar y disease, unspecified Office Visit 10/24/2020 1:23a [facility] Pulmonary/Thoracic Rasheed Eubanks D.O K56.609 Unsp intestnl obst, unsp as to partial versus complete obst J96.00 Acute respiratory failure, u nsp w hypoxia or hypercapnia N17.9 Acute kidney failure, unspec ified E83.39 Other disorders of phosphoru s metabolism Office Visit 10/23/2020 1:23a [facility] Pulmonary/Thoracic Marcos malone D.O. A41.9 Sepsis, unspecified organism J96.01 Acute respiratory failure wi th hypoxia E87.2 Acidosis N17.9 Acute kidney failure, unspec ified Office Visit 10/22/2020 1:23a [facility] Pulmonary/Thoracic Ellie Back M.D. R65.21 Severe sepsis [...] system MONICA Sainz 12/29/2020 Z93.3 Colostomy status MOINCA Sainz 12/11/2020 K56.609 Unspecified intestin al obstruction, [...] as to partial versus complete obstruction Jonathon Eubanks D.O 10/25/2020 J96.00 Acute respiratory fa ilure, unspecified whether with hypoxia or hypercapnia Oleg PadillaO 10/25/2020 E83.39 Other disorders of phosphorus me tabolism Oleg PadillaO 10/25/2020 J44.9 Chronic obstructive pulmonary di sease, unspecified Rasheed Padilla.O 10/24/2020 K56.609 Unspecified intestin al obstruction, unspecified as to partial versus complete obstruction Jonathon Eubanks D.O 10/24/2020 J96.00 Acute respiratory fa ilure, unspecified whether with hypoxia or hypercapnia Jonathon Eubanks D.O 10/24/2020 N17.9 Acute kidney failure, unspecifie d Oleg PadillaO 10/24/2020 E83.39 Other disorders of phosphorus me tabolism Rasheed Padilla.O 10/23/2020 A41.9 Sepsis, unspecified organism Eliseo Farias D.OCarri 10/23/2020 J96.01 Acute respiratory failure with h ypoxia Marcos Farias D.O. 10/23/2020 E87.2 Acidosis Marcos Farias, D.O. 10/23/2020 N17.9 Acute kidney failure, unspecifie d Marcos Farias D.O. 10/22/2020 R65.21 Severe sepsis with septic [...]
--- OUTSIDE RECORDS SUMMARY | 2021-05-10 14:19 | CCD ---
Author Author [facility] Organization [facility] Address Unknown Phone Unavailable Care Team Providers Care Box Lidder Name Role Phone Rasheed Barillas MD Unavailable Unavailable Rasheed Barillas MD Unavailable Unavailable Rasheed Barillas MD Unavailable Unavailable Rasheed Barillas MD Unavailable Unavailable Rasheed Barillas MD Unavailable Unavailable Rasheed Barillas MD Unavailable Unavailable Rasheed Barillas MD Unavailable Unavailable Rasheed Barillas MD Unavailable Unavailable Rasheed Barillas MD Unavailable Unavailable Rasheed Barillas MD Unavailable Unavailable Rasheed Barillas MD Unavailable Unavailable Rasheed Barillas MD Unavailable Unavailable Rasheed Barillas MD Unavailable Unavailable Rasheed Barillas MD Unavailable Unavailable Rasheed Barillas MD Unavailable Unavailable Rasheed Barillas MD Unavailable Unavailable Rasheed Barillas MD Unavailable Unavailable Rasheed Barillas MD Unavailable Unavailable Rasheed Barillas MD Unavailable Unavailable Rasheed Barillas MD Unavailable Unavailable Rasheed Barillas MD Unavailable Unavailable Rasheed Barillas MD Unavailable Unavailable Rasheed Barillas MD Unavailable Unavailable Rasheed Barillas MD Unavailable Unavailable Rasheed Barillas MD Unavailable Unavailable Rasheed Barillas MD Unavailable Unavailable Rasheed Barillas MD Unavailable Unavailable Rasheed Barillas MD Unavailable Unavailable Rasheed Barillas MD Unavailable Unavailable Rasheed Barillas MD Unavailable Unavailable Rasheed Barillas MD Unavailable Unavailable Rasheed Barillas MD Unavailable Unavailable Rasheed Barillas MD Unavailable Unavailable Rasheed Barillas MD Unavailable Unavailable Rasheed Barillas MD Unavailable Unavailable Rasheed Barillas MD Unavailable Unavailable Rasheed Barillas MD Unavailable Unavailable Rasheed Barillas MD Unavailable Unavailable Rasheed Barillas MD Unavailable Unavailable Rasheed Barillas MD Unavailable Unavailable Rasheed Barillas MD Unavailable Unavailable Rasheed Barillas MD Unavailable Unavailable Rasheed Barillas MD Unavailable Unavailable Rasheed Barillas MD Unavailable Unavailable Rasheed Barillas MD Unavailable Unavailable Rasheed Barillas MD Unavailable Unavailable Rasheed Barillas MD Unavailable Unavailable Rasheed Barillas MD Unavailable Unavailable Rasheed Barillas MD Unavailable Unavailable Rasheed Barillas MD Unavailable Unavailable Rasheed Barillas MD Unavailable Unavailable Rasheed Barillas MD Unavailable Unavailable Rasheed Barillas MD Unavailable Unavailable Rasheed Barillas MD Unavailable Unavailable Rasheed Barillas MD Unavailable Unavailable Rasheed Barillas MD Unavailable Unavailable Rasheed Barillas MD Unavailable Unavailable Rasheed Barillas MD Unavailable Unavailable Rasheed Barillas MD Unavailable Unavailable Rasheed Barillas MD Unavailable Unavailable Rasheed Barillas MD Unavailable Unavailable Rasheed Barillas MD Unavailable Unavailable Rasheed Barillas MD Unavailable Unavailable Rasheed Barillas MD Unavailable Unavailable Rasheed Barillas MD Unavailable Unavailable Rasheed Barillas MD Unavailable Unavailable Rasheed Barillas MD Unavailable Unavailable Rasheed Barillas MD Unavailable Unavailable Rasheed Barillas MD Unavailable Unavailable Rasheed Barillas MD Unavailable Unavailable Rasheed Barillas MD Unavailable Unavailable Rashede Barillas MD Unavailable Unavailable Rasheed Barillas MD Unavailable Unavailable Rasheed Barillas MD Unavailable Unavailable Rasheed Barillas MD Unavailable Unavailable Rasheed Barillas MD Unavailable Unavailable Rasheed Barillas MD Unavailable Unavailable Rasheed Barillas MD Unavailable Unavailable Rasheed Barillas MD Unavailable Unavailable Rasheed Barillas MD Unavailable Unavailable Rasheed Barillas MD Unavailable Unavailable Rasheed Barillas MD Unavailable Unavailable Rasheed Barillas MD Unavailable Unavailable Rasheed Barillas MD Unavailable Unavailable Rasheed Barillas MD Unavailable Unavailable Rasheed Barillas MD Unavailable Unavailable Rasheed Barillas MD Unavailable Unavailable Rasheed Barillas MD Unavailable Unavailable Rasheed Barillas MD Unavailable Unavailable Rasheed Barillas MD Unavailable Unavailable Rasheed Barillas MD Unavailable Unavailable Rasheed Barillas MD Unavailable Unavailable Rasheed Barillas MD Unavailable Unavailable Rasheed Barillas MD Unavailable Unavailable Ellie eNwman MD Unavailable Unavailable Ellie Newman MD Unavailable Unavailable Ellie Newman MD Unavailable Unavailable Ellie Newman MD Unavailable Unavailable Ellie Newman MD Unavailable Unavailable Ellie Newman MD Unavailable Unavailable Ellie Newman MD Unavailable Unavailable Ellie Newman MD Unavailable Unavailable Ellie Newman MD Unavailable Unavailable Ellie Newman MD Unavailable Unavailable Ellie Newman MD Unavailable Unavailable Ellie Newman MD Unavailable Unavailable Ellie Newman MD Unavailable Unavailable Ellie Newman MD Unavailable Unavailable Ellie Newman MD Unavailable Unavailable Ellie Newman MD Unavailable Unavailable Ellie Newman MD Unavailable Unavailable Ellie Newman MD Unavailable Unavailable Ellie Newman MD Unavailable Unavailable Ellie Newman MD Unavailable Unavailable Ellie Newman MD Unavailable Unavailable Ellie Newman MD Unavailable Unavailable Ellie Newman MD Unavailable Unavailable Ellie Newman MD Unavailable Unavailable Ellie Newman MD Unavailable Unavailable Ellie Newman MD Unavailable Unavailable Ellie Newman MD Unavailable Unavailable Ellie Newman MD Unavailable Unavailable Ellie Newman MD Unavailable Unavailable Ellie Newman MD Unavailable Unavailable [place], L Samara KEYBOARD INSTRUMENT TUNER Unavailable Unavailable [place], L Samara KEYBOARD INSTRUMENT TUNER Unavailable Unavailable Jeanne, L Samara KEYBOARD INSTRUMENT TUNER Unavailable Unavailable Jeanne, L Samara KEYBOARD INSTRUMENT TUNER Unavailable Unavailable [place], L Samara KEYBOARD INSTRUMENT TUNER Unavailable Unavailable Jeanne, L Samara KEYBOARD INSTRUMENT TUNER Unavailable Unavailable [place], L Samara KEYBOARD INSTRUMENT TUNER Unavailable Unavailable [place], L Samara KEYBOARD INSTRUMENT TUNER Unavailable Unavailable Jeanne, L Samara KEYBOARD INSTRUMENT TUNER Unavailable Unavailable Jeanne, L Samara KEYBOARD INSTRUMENT TUNER Unavailable Unavailable [place], L Samara KEYBOARD INSTRUMENT TUNER Unavailable Unavailable [place], L Samara KEYBOARD INSTRUMENT TUNER Unavailable Unavailable Jeanne, L Samara KEYBOARD INSTRUMENT TUNER Unavailable Unavailable [place], L Samara KEYBOARD INSTRUMENT TUNER Unavailable Unavailable [place], L Samara KEYBOARD INSTRUMENT TUNER Unavailable Unavailable [place], L Samara KEYBOARD INSTRUMENT TUNER Unavailable Unavailable [place], L Samara KEYBOARD INSTRUMENT TUNER Unavailable Unavailable Jeanne, L Samara KEYBOARD INSTRUMENT TUNER Unavailable Unavailable [place], L Samara KEYBOARD INSTRUMENT TUNER Unavailable Unavailable [place], L Samara KEYBOARD INSTRUMENT TUNER Unavailable Unavailable [place], L Samara KEYBOARD INSTRUMENT TUNER Unavailable Unavailable Jeanne, L Samara KEYBOARD INSTRUMENT TUNER Unavailable Unavailable Jeanne, L Samara KEYBOARD INSTRUMENT TUNER Unavailable Unavailable [place], L Samara KEYBOARD INSTRUMENT TUNER Unavailable Unavailable [place], L Samara KEYBOARD INSTRUMENT TUNER Unavailable Unavailable [place], L Samara KEYBOARD INSTRUMENT TUNER Unavailable Unavailable Jeanne, L Samara KEYBOARD INSTRUMENT TUNER Unavailable Unavailable [place], L Samara KEYBOARD INSTRUMENT TUNER Unavailable Unavailable [place], L Samara KEYBOARD INSTRUMENT TUNER Unavailable Unavailable Jeanne, L Samara KEYBOARD INSTRUMENT TUNER Unavailable Unavailable Jeanne, L Samara KEYBOARD INSTRUMENT TUNER Unavailable Unavailable Jeanne, L Samara KEYBOARD INSTRUMENT TUNER Unavailable Unavailable Jeanne, L Samara KEYBOARD INSTRUMENT TUNER Unavailable Unavailable Jeanne, L Samara KEYBOARD INSTRUMENT TUNER Unavailable Unavailable Jeanne, L Samara KEYBOARD INSTRUMENT TUNER Unavailable Unavailable [place], L Samara KEYBOARD INSTRUMENT TUNER Unavailable Unavailable Jeanne, L Samara KEYBOARD INSTRUMENT TUNER [facility] Unavailable Unavailable EMERTON, A JENELLE MD Unavailable Unavailable EMERTON, A JENELLE MD Unavailable Unavailable EMERTON, A JENELLE MD Unavailable Unavailable EMERTON, A JENELLE MD Unavailable Unavailable EMERTON, A JENELLE MD Unavailable Unavailable EMERTON, A JENELLE MD Unavailable Unavailable EMERTON, A JENELLE MD Unavailable Unavailable EMERTON, A EJNELLE MD Unavailable Unavailable EMERTON, A JENELLE MD Unavailable Unavailable EMERTON, A JENELLE MD Unavailable Unavailable EMERTON, A JENELLE MD Unavailable Unavailable EMERTON, A JENELLE MD Unavailable Unavailable EMERTON, A JENELLE MD Unavailable Unavailable EMERTON, A JENELLE MD Unavailable Unavailable EMERTON, A JENELLE MD Unavailable Unavailable EMERTON, A JENELLE MD Unavailable Unavailable EMERTON, A JENELLE MD Unavailable Unavailable EMERTON, A JENELLE MD Unavailable Unavailable EMERTON, A JENELLE MD Unavailable Unavailable EMERTON, A JENELLE MD Unavailable Unavailable EMERTON, A JENELLE MD Unavailable Unavailable EMERTON, A JENELLE MD Unavailable Unavailable EMERTON, A JENELLE MD Unavailable Unavailable EMERTON, A JENELLE MD Unavailable Unavailable EMERTON, A JENELLE MD Unavailable Unavailable EMERTON, A JENELLE MD Unavailable Unavailable EMERTON, A JENELLE MD Unavailable Unavailable EMERTON, A JENELLE MD Unavailable Unavailable EMERTON, A JENELLE MD Unavailable Unavailable EMERTON, A JENELLE Unavailable Unavailable EMERTON, A JENELLE MD Unavailable Unavailable EMERTON, A JENELLE MD Unavailable Unavailable EMERTON, A JENELLE MD Unavailable Unavailable EMERTON, A JENELLE MD Unavailable Unavailable EMERTON, A JENELLE MD Unavailable Unavailable EMERTON, A JENELLE MD Unavailable Unavailable EMERTON, A JENELLE MD Unavailable Unavailable EMERTON, A JENELLE MD Unavailable Unavailable EMERTON, A JENELLE MD Unavailable Unavailable EMERTON, A JENELLE MD Unavailable Unavailable EMERTON, A JENELLE MD Unavailable Unavailable EMERTON, A JENELLE MD Unavailable Unavailable EMERTON, A JENELLE MD Unavailable Unavailable EMERTON, A JENELLE MD Unavailable Unavailable EMERTON, A JENELLE MD Unavailable Unavailable EMERTON, A JENELLE MD Unavailable Unavailable EMERTON, A JENELLE MD Unavailable Unavailable EMERTON, A JENELLE MD Unavailable Unavailable EMERTON, A JENELLE MD Unavailable Unavailable EMERTON, A JENELLE MD Unavailable Unavailable EMERTON, A JENELLE MD Unavailable Unavailable EMERTON, A JENELLE MD Unavailable Unavailable EMERTON, A JENELLE MD Unavailable Unavailable EMERTON, A JENELLE MD Unavailable Unavailable EMERTON, A JENELLE MD Unavailable Unavailable EMERTON, A JENELLE MD Unavailable Unavailable EMERTON, A JENELLE MD Unavailable Unavailable EMERTON, A JENELLE MD Unavailable Unavailable EMERTON, A JENELLE MD Unavailable Unavailable EMERTON, A JENELLE MD Unavailable Unavailable EMERTON, A JENELLE MD Unavailable Unavailable EMERTON, A JENELLE MD Unavailable Unavailable EMERTON, A JENELLE MD Unavailable Unavailable EMERTON, A JENELLE MD Unavailable Unavailable EMERTON, A JENELLE MD Unavailable Unavailable EMERTON, A JENELLE MD Unavailable Unavailable EMERTON, A JENELLE MD Unavailable Unavailable EMERTON, A JENELLE MD Unavailable Unavailable EMERTON, A JENELLE MD Unavailable Unavailable EMERTON, A JENELLE MD Unavailable Unavailable EMERTON, A JENELLE MD Unavailable Unavailable EMERTON, A JENELLE MD Unavailable Unavailable EMERTON, A JENELLE MD Unavailable Unavailable EMERTON, A JENELLE MD Unavailable Unavailable EMERTON, A JENELLE MD Unavailable Unavailable EMERTON, A JENELLE MD Unavailable Unavailable EMERTON, A JENELLE MD Unavailable Unavailable EMERTON, A JENELLE MD Unavailable Unavailable Yusuf-Centner, Phyllis Unavailable Unavailable Yusuf-Centner, Phyllis Unavailable Unavailable Yusuf-Centner, Phyllis Unavailable Unavailable Yusuf-Centner, Phyllis Unavailable Unavailable Yusuf-Centner, Phyllis Unavailable Unavailable Yusuf-Centner, Phyllis Unavailable Unavailable Yusuf-Centner, Phyllis Unavailable Unavailable Yusuf-Centner, Phyllis Unavailable Unavailable Yusuf-Centner, Phyllis Unavailable Unavailable Yusuf-Centner, Phyllis Unavailable Unavailable Yusuf-Centner, Phyllis Unavailable Unavailable Jason COLLINS MD Unavailable Unavailable Jason COLLINS MD Unavailable Unavailable Jason COLLINS MD Unavailable Unavailable Jason COLLINS MD Unavailable Unavailable Jason COLLINS MD Unavailable Unavailable Jason COLLINS MD Unavailable Unavailable Jason COLLINS MD Unavailable Unavailable Jason COLLINS MD Unavailable Unavailable Jason COLLINS MD Unavailable Unavailable SEARS, A PINO DO Unavailable Unavailable SEARS, A PINO DO Unavailable Unavailable SEARS, A PINO DO Unavailable Unavailable SEARS, A PINO DO Unavailable Unavailable SEARS, A PINO DO Unavailable Unavailable SEARS, A PINO DO Unavailable Unavailable SEARS, A PINO DO Unavailable Unavailable SEARS, A PINO DO Unavailable Unavailable SEARS, A PINO DO Unavailable Unavailable SEARS, A PINO DO Unavailable Unavailable SEARS, A PINO DO Unavailable Unavailable SEARS, A PINO DO Unavailable Unavailable SEARS, A PINO DO Unavailable Unavailable SEARS, A PINO DO Unavailable Unavailable SEARS, A PINO DO Unavailable Unavailable SEARS, A PINO DO Unavailable Unavailable SEARS, A PINO DO Unavailable Unavailable SEARS, A PINO DO Unavailable Unavailable SEARS, A PINO DO Unavailable Unavailable SEARS, A PINO DO Unavailable Unavailable SEARS, A PINO DO Unavailable Unavailable SEARS, A PINO DO Unavailable Unavailable SEARS, A PINO DO Unavailable Unavailable SEARS, A PINO DO Unavailable Unavailable SEARS, A PINO DO Unavailable Unavailable SEARS, A PINO DO Unavailable Unavailable SEARS, A PINO DO Unavailable Unavailable SEARS, A PINO DO Unavailable Unavailable SEARS, A PINO DO Unavailable Unavailable SEARS, A PINO DO Unavailable Unavailable SEARS, A PINO DO Unavailable Unavailable SEARS, A PINO DO Unavailable Unavailable SEARS, A PINO DO Unavailable Unavailable SEARS, A PINO DO Unavailable Unavailable SEARS, A PINO DO Unavailable Unavailable SEARS, A PINO DO Unavailable Unavailable SEARS, A PINO DO Unavailable Unavailable SEARS, A PINO DO Unavailable Unavailable SEARS, A PINO DO Unavailable Unavailable SEARS, A PINO DO Unavailable Unavailable SEARS, A PINO DO Unavailable Unavailable SEARS, A PINO DO Unavailable Unavailable SEARS, A PINO DO Unavailable Unavailable SEARS, A PINO DO Unavailable Unavailable SEARS, A PINO DO Unavailable Unavailable SEARS, A PINO DO Unavailable Unavailable SEARS, A PINO DO Unavailable Unavailable SEARS, A PINO DO Unavailable Unavailable Rechlin, P Jonathon DO Unavailable Unavailable Rechlin, P Jonathon DO Unavailable Unavailable Rechlin, P Jonathon DO Unavailable Unavailable Rechlin, P Jonathon DO Unavailable Unavailable Rechlin, P Jonathon DO Unavailable Unavailable Rechlin, P Jonathon DO Unavailable Unavailable Rechlin, P Jonathon DO Unavailable Unavailable Rechlin, P Jonathon DO Unavailable Unavailable Rechlin, P Jonathon DO Unavailable Unavailable Rechlin, P Jonathon DO Unavailable Unavailable Rechlin, P Jonathon DO Unavailable Unavailable Rechlin, P Jonathon DO Unavailable Unavailable Rechlin, P Jonathon DO Unavailable Unavailable Rechlin, P Jonathon DO Unavailable Unavailable Rechlin, P Jonathon DO Unavailable Unavailable Rechlin, P Jonathon DO Unavailable Unavailable Rechlin, P Jonathon DO Unavailable Unavailable Rechlin, P Jonathon DO Unavailable Unavailable Rechlin, P Jonathon DO Unavailable Unavailable Rechlin, P Jonathon DO Unavailable Unavailable Rechlin, P Jonathon DO Unavailable Unavailable Rechlin, P Jonathon DO Unavailable Unavailable Rechlin, P Jonathon DO Unavailable Unavailable Rechlin, P Jonathon DO Unavailable Unavailable Rechlin, P Jonathon DO Unavailable Unavailable Rechlin, P Jonathon DO Unavailable Unavailable Rechlin, P Jonathon DO Unavailable Unavailable Rechlin, P Jonathon DO Unavailable Unavailable Rechlin, P Jonathon DO Unavailable Unavailable Rechlin, P Jonathon DO Unavailable Unavailable Rechlin, P Jonathon DO Unavailable Unavailable Rechlin, P Jonathon DO Unavailable Unavailable Rechlin, P Jonathon DO Unavailable Unavailable Rechlin, P Jonathon DO Unavailable Unavailable Rechlin, P Jonathon DO Unavailable Unavailable Rechlin, P Jonathon DO Unavailable Unavailable Rechlin, P Jonathon DO Unavailable Unavailable Rechlin, P Jonathon DO Unavailable Unavailable Rechlin, P Jonathon DO Unavailable Unavailable Rechlin, P Jonathon DO Unavailable Unavailable Rechlin, P Jonathon DO Unavailable Unavailable Rechlin, P Jonathon DO Unavailable Unavailable Rechlin, P Jonathon DO Unavailable Unavailable Rechlin, P Jonathon DO Unavailable Unavailable Rechlin, P Jonathon DO Unavailable Unavailable Rechlin, P Jonathon DO Unavailable Unavailable Rechlin, P Jonathon DO Unavailable Unavailable Rechlin, P Jonathon DO Unavailable Unavailable Rechlin, P Jonathon DO Unavailable Unavailable Rechlin, P Jonathon DO Unavailable Unavailable Rechlin, P Jonathon DO Unavailable Unavailable Zavala, L Yelena RPA Unavailable Unavailable Zavala, L Yelena RPA Unavailable Unavailable Zavala, L Yelena RPA Unavailable Unavailable Zavala, L Yelena RPA Unavailable Unavailable Zavala, L Yelena RPA Unavailable Unavailable Zavala, L Yelena RPA Unavailable Unavailable Zavala, L Yelena RPA Unavailable Unavailable Zavala, L Yelena RPA Unavailable Unavailable Zavala, L Yelena RPA Unavailable Unavailable Zavala, L Yelena RPA Unavailable Unavailable Zavala, L Yelena RPA Unavailable Unavailable Zavala, L Yelena RPA Unavailable Unavailable Zavala, L Yelena RPA Unavailable Unavailable Zavala, L Yelena RPA Unavailable Unavailable Zavala, L Yelena RPA Unavailable Unavailable Zavala, L Yelena RPA Unavailable Unavailable Zavala, L Yelena RPA Unavailable Unavailable Zavala, L Yelena RPA Unavailable Unavailable Zavala, L Yelena RPA Unavailable Unavailable Zavala, L Yelena RPA Unavailable Unavailable Zavala, L Yelena RPA Unavailable Unavailable Zavala, L Yelena RPA Unavailable Unavailable Zavala, L Yelena RPA Unavailable Unavailable Zavala, L Yelena RPA Unavailable Unavailable Zavala, L Yelena RPA Unavailable Unavailable Zavala, L Yelena RPA Unavailable Unavailable Zavala, L Yelena RPA Unavailable Unavailable Zavala, L Yelena RPA Unavailable Unavailable Zavala, L Yelena RPA Unavailable Unavailable Zavala, L Yelena RPA Unavailable Unavailable Zavala, L Yelena RPA Unavailable Unavailable Zavala, L Yelena RPA Unavailable Unavailable Jason Pa JR, MD Unavailable Unavailable Jason Pa JR, MD Unavailable Unavailable Jason Pa JR, MD Unavailable Unavailable Jason Pa JR, MD Unavailable Unavailable Jason Pa JR, MD Unavailable Unavailable Jason Pa JR, MD Unavailable Unavailable Jason Pa JR, MD Unavailable Unavailable Jason Pa JR, MD Unavailable Unavailable Jason Pa JR, MD Unavailable Unavailable Jason Pa JR, MD Unavailable Unavailable Jason Pa JR, MD Unavailable Unavailable Jason Pa JR, MD Unavailable Unavailable Jason Pa JR, MD Unavailable Unavailable Jason Pa JR, MD Unavailable Unavailable Jason Pa JR, MD Unavailable Unavailable Jason Pa JR, MD Unavailable Unavailable Jason Pa JR, MD Unavailable Unavailable Jason Pa JR, MD Unavailable Unavailable Jason Pa JR, MD Unavailable Unavailable Jason Pa JR, MD Unavailable Unavailable Jason Pa JR, MD Unavailable Unavailable Jason Pa JR, MD Unavailable Unavailable Jason Pa JR, MD Unavailable Unavailable Jason Pa JR, MD Unavailable Unavailable Jason Pa JR, MD Unavailable Unavailable Jason Pa JR, MD Unavailable Unavailable Jason Pa JR, MD Unavailable Unavailable Jason Pa JR, MD Unavailable Unavailable Jason Pa JR, MD Unavailable Unavailable Jason Pa JR, MD Unavailable Unavailable Jason Pa JR, MD Unavailable Unavailable Jason Pa JR, MD Unavailable Unavailable Jason Pa JR, MD Unavailable Unavailable Jason Pa JR, MD Unavailable Unavailable Jason Pa JR, MD Unavailable Unavailable Jason Pa JR, MD Unavailable Unavailable Jason Pa JR, MD Unavailable Unavailable Jason Pa JR, MD Unavailable Unavailable Jason Pa JR, MD Unavailable Unavailable Jason Pa JR, MD Unavailable Unavailable Jason Pa JR, MD Unavailable Unavailable Jason Pa JR, MD Unavailable Unavailable Jasno Pa JR, MD Unavailable Unavailable Jason Pa JR, MD Unavailable Unavailable Jason Pa JR, MD Unavailable Unavailable Jason Pa JR, MD Unavailable Unavailable Jason Pa JR, MD Unavailable Unavailable Jason Pa JR, MD Unavailable Unavailable Jason Pa JR, MD Unavailable Unavailable Jason Pa JR, MD Unavailable Unavailable Jason Pa JR, MD Unavailable Unavailable Jason Pa JR, MD Unavailable Unavailable Jason Pa JR, MD Unavailable Unavailable Jason Pa JR, MD Unavailable Unavailable Jason Pa JR, MD Unavailable Unavailable Jason Pa JR, MD Unavailable Unavailable Daniel Carter MD Unavailable Unavailable Daniel Carter MD Unavailable Unavailable Daniel Carter MD Unavailable Unavailable Daniel Carter MD Unavailable Unavailable Daniel Carter MD Unavailable Unavailable Daniel Carter MD Unavailable Unavailable Daniel Carter MD Unavailable Unavailable Daneil Carter MD Unavailable Unavailable Daniel Carter MD Unavailable Unavailable Daniel Carter MD Unavailable Unavailable Daniel Carter MD Unavailable Unavailable Daniel Carter MD Unavailable Unavailable Daniel Carter MD Unavailable Unavailable Daniel Carter MD Unavailable Unavailable Daniel Carter MD Unavailable Unavailable Daniel Carter MD Unavailable Unavailable Daniel Carter MD Unavailable Unavailable Daniel Carter MD Unavailable Unavailable Daniel Carter MD Unavailable Unavailable Daniel Carter MD Unavailable Unavailable Daniel Carter MD Unavailable Unavailable Daniel Carter MD Unavailable Unavailable Daniel Carter MD Unavailable Unavailable Daniel Carter MD Unavailable Unavailable Daniel Carter MD Unavailable Unavailable Daniel Carter MD Unavailable Unavailable Daniel Carter MD Unavailable Unavailable Daniel Carter MD Unavailable Unavailable Daniel Carter MD Unavailable Unavailable Daniel Carter MD Unavailable Unavailable Daniel Carter MD Unavailable Unavailable Daniel Carter MD Unavailable Unavailable Daniel Carter MD Unavailable Unavailable Daniel Carter MD Unavailable Unavailable Daniel Carter MD Unavailable Unavailable Daniel Carter MD Unavailable Unavailable Daniel Carter MD Unavailable Unavailable Daniel Carter MD Unavailable Unavailable Daniel Carter MD Unavailable Unavailable Daniel Carter MD Unavailable Unavailable Daniel Carter MD Unavailable Unavailable Daniel Carter MD Unavailable Unavailable Daniel Carter MD Unavailable Unavailable Daniel Carter MD Unavailable Unavailable Daniel Carter MD Unavailable Unavailable Daniel Carter MD Unavailable Unavailable Carter, Daniel Page MD Unavailable Unavailable Carter, Daniel Page MD Unavailable Unavailable Carter, Daniel Camilo MD Unavailable Unavailable Carter, Daniel Camilo MD Unavailable Unavailable Carter, Daniel Camilo MD Unavailable Unavailable Carter, Daniel Camilo MD Unavailable Unavailable Carter, Daniel Camilo MD Unavailable Unavailable Carter, Daniel Camilo MD Unavailable Unavailable Carter, Daniel Camilo MD Unavailable Unavailable Re-disclosure Warning The records that [...] is protected by Article 27-F of the [facility] Public Health law. If you continue you may have access to information: Regarding HIV / AIDS; Provided by facilities licensed or operated by the [facility] Office of Mental Health; or Provided by the [facility] Office for People With Developmental Disabilities. If such information is present, then the following [facility] mandated warning applies: This information has been [...] law may result in a fine or nursing home sentence or both. A general authorization for the release of medical or other information is NOT sufficient authorization for further disc losure. Advance Directives Directive Description Flight Control Specialist Shipping Lead Status Observation Descr iption Data Source(s) [id number] HIPAA - Effective on 03/05/2021. Expiration date unspecified Elizabeth Schilling completed [employer] ([facility] [facility] Allergies and Adverse Reactions Type Description Substance Reaction Status Data Source(s ) Unknown Ketolides Ketolides Reaction Unknown NDOC ([facility]) Unknown Macrolide Antibiotics Macrolide Antibiotics Reaction Unkno wn NDOC ([facility]) Unknown metronidazole Metronidazole Reaction Unknown N DOC ([facility]) Allergy to substance Allergy to substance Allergy to substance DANAE ([facility]) Allergy to substance Allergy to substance Allergy to substance DANAE ([facility]) Family History Family Member Name Family Member Gender Family Member Status Date o f Status Description Data Source(s) Unknown Unknown Problem MEDENT ([facility]) Encounters Encounter Providers Location Date Indications Data Source(s ) Outpatient Attender: Jimliz Suggs/Van Wert/Michele/Rein dl 04/15/2021 12:15:00 PM EST MEDENT ([facility] Outpatient Attender: Jim Ember Suggs/Van Wert/Michele/Rein dl 03/09/2021 02:30:00 PM EDT MEDENT ([facility] ) <td><content [id number]">Office Visit</content>
<content><content styleCode="xLabel xSecondary">Encounter Reason</content>: <content ID="_[id number]" styleCode="xSecondary">COPD - The primary physician is Dr. Jenelle Valdez. The last office visit was 1 year(s) ago. No [...] and unchanged. Symptoms are exacerbated by activity and recumbency. Symptoms are relieved by inhaler use, use of a nebulizer, supplemental oxygen and rest. Associated symptoms do not include fever, hemoptysis or upper respiratory infection symptoms. Current treat ment includes inhaled albuterol, inhaled long-acting beta-2 agonists, inhaled corticosteroids, supplemental oxygen and BIPAP. By report there is good compliance with treatment, good tolerance of treatment and fair symptom control. The frequency of exacerbations has been times a year (1x/year, was worse in the past but didn't tolerate daliresp). Pertinent medical history includes smoking (has quit), oxygen dependency, asthma and obstructive sleep apnea (on bipap/oxygen overnight. sleeps better with use), while pertinent medical history does not include prior intubation and ventilator therapy, tracheostomy, pneumonia, congestive heart failure or lung cancer. Past evaluation has included chest x-ray, chest CT and pulmonary function tests.</content><content styleCode="xSecondary">, </content><content [id number]" styleCode="xSecondary"> [ADDITIONAL REASON] Sleep follow up - The sleep disorder is characterized as obstructive sleep apnea. The patient gets approximately 8 hours of sleep per night. Current treatment includes BiPAP therapy and oxygen. By report there is good compliance with treatment, good tolerance of treatment and good symptom control. Current symptoms do not include nocturnal choking or snoring (sleeps alone, no snorting arousals). Associated symptoms do not include morning headaches. Since diagnosis the disease has been stable. </content></content>
<content><content styleCode="xSecondary xLabel">Encounter Diagnosis</content>: <content ID="_[id number]" styleCode="xSecondary">COPD (CHRONIC OBSTRUCTIVE PULMONARY DISEASE)</content><content styleCode="xSecondary">, </content><content [id number]" styleCode="xSecondary">TOXIC EFFECT OF TOBACCO</content><content styleCode="xSecondary">, </content><content [id number]" styleCode="xSecondary">MORBID OBESITY</content><content styleCode="xSecondary">, </content><content ID="_[id number]" styleCode="xSecondary">JIGNESH (OBSTRUCTIVE SLEEP APNEA)</content><content styleCode="xSecondary">, </content><content [id number]" styleCode="xSecondary">HYPOXEMIA</content><content styleCode="xSecondary">, </content><content [id number]" styleCode="xSecondary">BRONCHIECTASIS</content></content></td><td><content styleCode="xSecondary">05-Mar-2021 11:00 </content><content styleCode="xLabel xSecondary"> To </content><content styleCode="xSecondary">05-Mar-2021 11:09</content>
<content styleCode="xSecondary">Pulmonary [facility] Office</content></td><td></td>Outpatient [facility] Office 03/05/2021 11:00:00 AM EDT - 03/05/2021 11:09:25 AM EDT [ADDITIONAL REASON] Sleep follow up - The sleep disorder is characterized as obstructive sleep apnea. The patient gets approximately 8 hours of sleep per night. Current treatment includes BiPAP therapy and oxygen. By report there is good compliance with treatment, good tolerance of treatment and good symptom control. Current symptoms do not include nocturnal choking or snoring (sleeps alone, no snorting arousals). Associated symptoms do not include morning headaches. Since diagnosis the disease has been stable.COPD - The primary physician is Dr. Jenelle Valdez. The last office visit was 1 year(s) ago. No [...] and unchanged. Symptoms are exacerbated by activity and recumbency. Symptoms are relieved by inhaler use, use of a nebulizer, supplemental oxygen and rest. Associated symptoms do not include fever, hemoptysis or upper respiratory infection symptoms. Current treatment includes inhaled albuterol, inhaled long- acting beta-2 agonists, inhaled corticosteroids, supplemental oxygen and BIPAP. By report there is good compliance with treatment, good tolerance of treatment and fair symptom control. The frequency of exacerbations has been times a year (1x/year, was worse in the past but didn't tolerate daliresp). Pertinent medical history includes smoking (has quit), oxygen dependency, asthma and obstructive sleep apnea (on bipap/oxygen overnight. sleeps better with use), while pertinent medical history does not include prior intubation and ventilator therapy, trach eostomy, pneumonia, congestive heart failure or lung cancer. Past evaluation has included chest x-ray, chest CT and pulmonary function tests.BRONCHIECTASISHYPOXEMIAOSA (OBSTRUCTIVE SLEEP APNEA)MORBID OBESITYTOXIC EFFECT OF TOBACCOCOPD (CHRONIC OBSTRUCTIVE PULMONARY DISEASE) [facility] ([facility]) [ADDITIONAL REASON] Sleep follow up - sleep disorder is characterized as obstructive sleep apnea. The patient gets approximately 8 hours of sleep per night. Current treatment includes BiPAP therapy and oxygen. By report there is good compliance with treatment, good tolerance of treatment and good symptom control. Current symptoms do not include nocturnal choking or snoring (sleeps alone, no snorting arousals). Associated symptoms do not include morning headaches. Since diagnosis the disease has been stable. COPD - The primary physician is Dr. Jenelle Valdez. The last office visit was 1 year(s) ago. No [...] and unchanged. Symptoms are exacerbated by activity and recumbency. Symptoms are relieved by inhaler use, use of a nebulizer, supplemental oxygen and rest. Associated symptoms do not include fever, hemoptysis or upper respiratory infection symptoms. Current treatment includes inhaled albuterol, inhaled long-acting beta-2 agonists, inhaled corticosteroids, supplemental oxygen and BIPAP. By report there is good compliance with treatment, good tolerance of treatment and fair symptom control. The frequency of exacerbations has been times a year (1x/year, was worse in the past but didn't tolerate daliresp). Pertinent medical history includes smoking (has quit), oxygen dependency, asthma and obstructive sleep apnea (on bipap/oxygen overnight. sleeps better with use), while pertinent medical history does not include prior intubation and ventilator therapy, tracheostomy, pneumonia, congestive heart failure or lung cancer. Past evaluation has included chest x-ray, chest CT and pulmonary function tests. BRONCHIECTASIS HYPOXEMIA JIGNESH (OBSTRUCTIVE SLEEP APNEA) MORBID OBESITY TOXIC EFFECT OF TOBACCO COPD (CHRONIC OBSTRUCTIVE PULMONARY DISE ASE) Outpatient Attender: Jim Bosch/Rein dl 01/21/2021 03:45:00 PM EDT MEDENT ([facility]) Office Visit Attender: Yelena Suggs/Louie/Michele/R eindl 12/29/2020 01:00:00 PM EDT MEDENT ([facility]) Emergency Attender: SOCO COLLINS MD EMERGENCY ROOM-ER 03:44:00 AM EDT - 12/19/2020 09:20:00 AM EDT [facility] Patient discharged. Outpatient Attender: SOCO COLLINS MDConsultant: [facility] [id number] 12/19/2020 02:40:00 AM EDT [facility] Office Visit Attender: Yelena Suggs/Van Wert/Michele/R eindl 12/11/2020 09:45:00 AM EDT MEDENT ([facility]) O Attender: JENELLE VALDEZ MD 12/02/2020 12:00:00 AM EDT ND ([facility]) Patient admitted. Office Visit Attender: Jim Bosch/Rein dl 11/26/2020 01:00:00 PM EDT MEDENT ([facility]) Office Visit Attender: Yelena Suggs/[place]/Michele/R eindl 11/20/2020 01:45:00 PM EDT MEDENT ([facility]) Outpatient Attender: Jonathon Eubanks DO Ifeanyi/Van Wert/Michele/Darinel ndl 10/25/2020 01:23:00 AM EDT MEDENT ([facility]) Outpatient Attender: Jonathon Eubanks DO Ifeanyi/Van Wert/Michele/Darinel ndl 10/24/2020 01:23:00 AM EDT MEDENT ([facility]) Outpatient Attender: PINO MANNING DO Ifeanyi/Van Wert/Michele/Reindl 10/23/2020 01:23:00 AM EDT MEDENT ([facility]) Outpatient Attender: Ellie Suggs/Van Wert/Michele/Darinel ndl 10/22/2020 01:23:00 AM EDT MEDENT ([facility]) Jean Barillas MD: [address] [place] [address], Ph. Attender: Jean Barillas MD [facility] Medical 09/08/2020 12:00:00 AM EDT DANAE ([facility]) Phyllis Goldberg, RPA-C: [address] [place] [address], Ph. Attender: Phyllis Hale [facility] Medical 08/11/2020 12:00:00 AM EST DANAE ([facility]) Phyllis Goldberg RPA-C: [address] [place] [address], Ph. Attender: Phyllis Hale [facility] Medical 08/11/2020 12:00:00 AM EST DANAE ([facility]) Outpatient Attender: Jim Pa JR Ifeanyi/Van Wert/Michele/Rein dl 06/30/2020 08:45:00 AM EST MEDENT ([facility]) Outpatient Attender: Camilo Suggs/Louie/Michele/Chandana wright 06/20/2020 12:23:00 AM EST TIMI ([facility] ) Outpatient Referrer: Samara Angel NP 06/03/2020 08:16:0 2 AM EST [facility] Immunizations Vaccine Date Status Description Data Source(s) COVID-19, mRNA, LNP-S, PF, 100 mcg/0.5 mL dose 09/09/2020 12 :39:00 PM EDT completed .5 mL DANAE ([facility]) COVID-19 VACCINE Moderna 09/09/2020 12:00:00 AM EDT completed [facility] Vaccine Series Complete: YESThis Data wa s Submitted to [facility] Via [email or web address].pl. COVID-19, mRNA, LNP-S, PF, 100 mcg/0.5 mL dose 08/11/2020 02 :56:57 PM EST completed .5 mL DANAE ([facility]) COVID-19, mRNA, LNP-S, PF, 100 mcg/0.5 mL dose 08/11/2020 02 :56:57 PM EST completed .5 mL DANAE ([facility]) COVID-19 VACCINE Moderna 08/11/2020 12:00:00 AM EST completed [facility] Vaccine Series Complete: NOThis Data was Submitted to [facility] Via [email or web address].pl. Medications Medication Brand Name Start Date Product Form Dose Route Admi nistrative Instructions Pharmacy Instructions Status Indications Reaction Description Data Source(s) 7 ACTUAT umeclidinium 0.0625 MG/ACTUAT D ry Powder Inhaler [Incruse] Incruse Ellipta 62.5 MCG/INH Inhalation Aerosol Powder Breath Activated Incruse Ellipta 62.5 MCG/INH Inhalation Aerosol Powder Breath Activated 03/05/2021 12:00:00 AM EDT 1 {Puff} [id number] active Incruse Ellipta [facility] ([facility]) Albuterol 0.833 MG/ML / Ipratropium Brom sherman 0.167 MG/ML Inhalant Solution Ipratropium-Albuterol 0.5-2.5 (3) MG/3ML Inhalation Solution Ipratropium- Albuterol 0.5-2.5 (3) MG/3ML Inhalation Solution 03/05/2021 12:00:00 AM EDT 1 {Vial} [id number] active Ipratropium-Albuterol Al [facility]Script[facility] ([facility]) Medication taken as needed. 2 boxes with 2 refills tiotropium 0.018 MG/ACTUAT Inhalant Powd er [Spiriva] Spiriva HandiHaler 18 MCG Inhalation Capsule Spiriva HandiHaler 18 MCG Inhalation Capsule 12:00:00 AM EDT 1 {Capsule} [id number] suspended Spiriva HandiHaler [facility] ([facility]) replacing incruse Insurance Providers Payer name Policy type / Coverage type Policy ID Covered constitution party ID Covered constitution party's relationship to romero Policy Romero Plan Information [id number] MEDICARE [id number] Mariza [id number] MEDICARE [id number] SP [id number] [id number] SP [id number] [facility] [id number] SP [id number] [facility] [id number] SP [id number] [facility] [id number] SP [id number] [place]ICAID [id number] [id number] [place] [id number] SP [id number] Y [facility] [id number] SP [id number] [facility] [id number] SP [id number] [facility] MEDICARE [id number] Mariza [id number] MEDICAID [id number] Mariza [id number] MEDICAID [id number] S [id number] HU[employer] GOLD CLASSIC [id number] S [id number] HUMANA GOLD CLASSIC [id number] S [id number] [facility] [id number] SP [id number] [facility] [id number] SP [id number] [facility](MCAID) O [id number] S [id number] SELF PAY ONLY [id number] SP [id number] HUMANA GOLD [id number] SP [id number] MEDICAID M [id number] S [id number] MEDICARE [id number] SP [id number] A [facility] MEDICARE PI PI MEDICAID PI PI HUMANA GOLD O [id number] S [id number] [employer]MANA GOLD CLASSIC [id number] S [id number] MEDICAID [id number] S [id number] [employer] GOLD [id number] SP [id number] MEDICAID [id number] SP [id number] [facility] [id number] SP [id number] [facility]/Medicare Commercial [id number] Self [id number] [facility] [id number] SP [id number] [facility] [id number] SP [id number] MEDICARE C [id number] S [id number] [facility](MCAID) O [id number] S [id number] [employer] [facility] [id number] SP [id number] HUMANA GOLD [id number] SP [id number] [facility] [id number] SP [id number] MEDICARE [id number] SP [id number] Problems, Conditions, and Diagnoses Code Display Name Description Problem Type Effective Dates Data Source(s) Z90.89 Acquired absence of other organs ACQUIRED ABSENC E OF OTHER ORGANS Diagnosis 12/19/2020 03:44:00 AM [facility] Z90.49 Acquired absence of other specified part s of digestive tract ACQUIRED ABSENCE OF OTHER SPECIFIED PARTS OF DIGES Diagnosis 12/19/2020 03:44:0 0 AM [facility] Z79.891 snf (current) use of opiate analge sic SOAKING TANK WORKER (CURRENT) USE OF OPIATE ANALGESIC Diagnosis 12/19/2020 03:44:00 AM [facility] Z79.899 Other terminal makeup operator (current) drug therapy O THER SOAKING TANK WORKER (CURRENT) DRUG THERAPY Diagnosis 12/19/2020 03:44:00 AM [facility] Z79.82 termite renewal inspector (current) 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 SOAKING TANK WORKER (CU RRENT) USE OF ASPIRIN Diagnosis 12/19/2020 03:44:00 AM [facility] Z79.51 snf (current) use of inhaled stero ids SOAKING TANK WORKER (CURRENT) USE OF INHALED STEROIDS Diagnosis 12/19/2020 03:44:00 AM [facility] Z20.822 CONTACT WITH AND (SUSPECTED) EXPOSURE TO COVID-19 CONTACT WITH AND (SUSPECTED) EXPOSURE TO COVID-19 Diagnosis 12/19/2020 03:44:00 AM [facility] F17.210 Nicotine dependence, cigarettes, uncompl icated NICOTINE DEPENDENCE, CIGARETTES, UNCOMPLICATED Diagnosis 12/19/2020 03:44:00 AM [facility] N30.90 Cystitis, unspecified without hematuria CYSTITIS, UNSPECIFIED WITHOUT HEMATURIA Diagnosis 12/19/2020 03:44:00 AM [facility] J44.1 Chronic obstructive pulmonary disease wi th (acute) exacerbation CHRONIC OBSTRUCTIVE PULMONARY DISEASE W (ACUTE) EX Diagnosis 12/19/2020 03:44: 00 AM [facility] R06.00 Dyspnea, unspecified DYSPNEA, UNSPECIFIED Diagnosis 12/19/2020 03:44:00 AM [facility] I73.9 Peripheral vascular disease, unspecified Peripheral vascular disease, unspecified Diagnosis 12/02/2020 12:00:[address] [facility] ([facility]) N39.0 Urinary tract infection, site not specif ied Urinary tract infection, site not specified Diagnosis 12/02/2020 12:00:[address] [facility] ([facility]) Z79.82 snf (current) 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 termite renewal inspector (cu rrent) 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 Diagnosis 12/02/2020 12:00:00 AM EDT ND ([facility] ) Z99.81 Dependence on supplemental oxygen Dependence on supplemental oxygen Diagnosis 12/02/2020 12:00:00 AM EDT ND ([facility] ) Z87.891 Personal history of nicotine dependence Personal history of nicotine dependence Diagnosis 12/02/2020 12:00:00 AM EDT ND ([facility]) K76.0 Fatty (change of) liver, not elsewhere c lassified Fatty (change of) liver, not elsewhere classified Diagnosis 12/02/2020 12:00:00 AM EDT NDOC ([facility]) E66.01 Morbid (severe) obesity due to excess ca lories Morbid (severe) obesity due to excess calories Diagnosis 12/02/2020 12:00:00 AM EDT NDOC ([facility]) K57.90 Diverticulosis of intestine, part unspecified, without perforation or abscess without bleeding Diverticulosis of intestine, part unspec ified, without perforation or abscess without bleeding Diagnosis 12/02/2020 12:00:00 AM EDT NDOC ([facility]) G47.33 Obstructive sleep apnea (adult) (pediatr ic) Obstructive sleep apnea (adult) (pediatric) Diagnosis 12/02/2020 12:00:00 AM EDT NDOC ([facility]) J44.9 Chronic obstructive pulmonary disease, u nspecified Chronic obstructive pulmonary disease, unspecified Diagnosis 12/02/2020 12:00:00 AM EDT ND OC ([facility]) K21.9 Gastro-esophageal reflux disease without esophagitis Gastro-esophageal reflux disease without esophagitis Diagnosis 12/02/2020 12:00:00 AM ED T NDOC ([facility]) I27.20 Pulmonary hypertension, unspecified Pulmonary hy pertension, unspecified Diagnosis 12/02/2020 12:00:00 AM EDT NDOC ([facility] ) E11.9 Type 2 diabetes mellitus without complic ations Type 2 diabetes mellitus without complications Diagnosis 12/02/2020 12:00:00 AM EDT NDOC ([facility]) I50.9 Heart failure, unspecified Heart failure, unspecified Diagnosis 12/02/2020 12:00:00 AM EDT NDOC ([facility]) I11.0 Hypertensive heart disease with heart fa ilure Hypertensive heart disease with heart failure Diagnosis 12/02/2020 12:00:00 AM EDT NDOC ([facility]) I25.10 Atherosclerotic heart diseas e of [place] coronary artery without angina pectoris Atherosclerotic heart disease of [place] coronary artery without angina pectoris Diagnosis 12/02/2020 12:00:00 AM EDT NDOC ([facility]) Z43.3 Encounter for attention to colostomy Encounter f or attention to colostomy Diagnosis 12/02/2020 12:00:00 AM EDT NDOC ([facility] ) T81.49XD T81.49XD Infection following a procedure, other surgical site, subsequent encounter Diagnosis 12/02/2020 12:00:00 AM EDT NDOC ([facility]) 27992070 Essential hypertension Essential hypertension Problem 11/11/2020 12:00:00 AM EDT [facility] Surgeries/Procedures Procedure Description Date Indications Data Source(s) OFFICE OUTPATIENT VISIT 10 MINUTES 04/15/2021 12:00:00 AM EST [facility] OFFICE OUTPATIENT VISIT 10 MINUTES 03/09/2021 12:00:00 AM EDT [facility] OFFICE OUTPATIENT VISIT 25 MINUTES 03/05 11:00:00 AM EDT - 03/05/2021 11:09:25 AM EDT [facility] ([facility] ) PFT <td>PFT</td><td></td><td>Sta tus: Completed 05-Mar-2021 Comments: Severe Obstruction. FVC 1.57 (57) FEV1 0.76 (28) ratio 48</td> 03/05/2021 12:00:00 AM EDT - 03/05/2021 12:00:00 AM EDT [facility] ([facility] ) Severe Obstruction. FVC 1.57 (57) FEV1 0 .76 (28) ratio 48 BRNCDILAT RSPSE SPMTRY PRE&POST-BRNCDILAT ADMN <td>PRE AND POST ([id number])</td><td></td><td>Status: Completed 05-Mar-2021 </td> 03/05/2021 12:00:00 AM EDT - 03/05/2021 12:00:00 AM EDT [facility] ([facility]) OFFICE OUTPATIENT VISIT 15 MINUTES 01/21/2021 12:00:00 AM EDT [facility] CRITICAL CARE ILL/INJURED PATIENT INIT 30-74 MIN 10/25 12:00:00 AM EDT [facility] CRITICAL CARE ILL/INJURED PATIENT INIT 30-74 MIN 10/24 12:00:00 AM EDT [facility] CRITICAL CARE ILL/INJURED PATIENT ADDL 30 MIN 10/25/19 12:00:00 AM EDT MEDENT ([facility]) CRITICAL CARE ILL/INJURED PATIENT INIT 30-74 MIN 10/23 12:00:00 AM EDT MEDENT ([facility]) CRITICAL CARE ILL/INJURED PATIENT ADDL 30 MIN 10/24/19 12:00:00 AM EDT MEDENT ([facility]) Insertion Of Non-Tunneled Centrally Inserted Central Venous Mónica 10/22/2020 12:00:00 AM EDT MEDENT ([facility]) Ultrasound Guidance For Vascular Access Requiring Ultrasound Eval 10/22/2020 12:00:00 AM EDT MEDENT ([facility]) CRITICAL CARE ILL/INJURED PATIENT INIT 30-74 MIN 10/22 12:00:00 AM EDT MEDENT ([facility]) CRITICAL CARE ILL/INJURED PATIENT ADDL 30 MIN 10/23/19 12:00:00 AM EDT MEDENT ([facility]) OFFICE OUTPATIENT VISIT 15 MINUTES 06/30/2020 12:00:00 AM EST MEDENT ([facility]) [facility]/DAY 25 MINUTES 06/20/2020 12:00:00 AM EST MEDENT ([facility]) Results ID Date Data Source [id number] 02/18/2021 08:31:00 PM EDT [facility] Name Value Range Interpretation Code Description Data Libia rce(s) Supporting Document(s) SARS-CoV-2 (COVID 19) NEGATIVE - SARS-CoV-2 (COVID19) [facility] This lab was ordered by [facility] a nd reported by [facility]. ID Date Data Source [id number] 01/06/2021 07:31:00 PM EDT [facility] Name Value Range Interpretation Code Description Data Libia rce(s) Supporting Document(s) SARS coronavirus 2 RNA [Presence] in Res piratory specimen by DOUGLAS with probe detection NEGATIVE [facility] This lab was ordered by [facility] a nd reported by [facility]. ID Date Data Source [id number] 01/05/2021 11:15:00 PM EDT [facility] Name Value Range Interpretation Code Description Data Libia rce(s) Supporting Document(s) SARS coronavirus 2 RNA [Presence] in Res piratory specimen by DOUGLAS with probe detection NEGATIVE [facility] This lab was ordered by [facility] a nd reported by [facility]. ID Date Data Source [id number] 12/20/2020 01:06:00 PM EDT [facility] Patient: ELIZABETH SCHILLING Report - [facility].VisitID: [id number] [place] [address] [phone], FRegistration Date/Time: 12/19/2020 01:57 Weight:105.2 kg. Height/Length:67 inches. BMI:36.4 FAMILY HISTORYNo significant family medical history. (Electronically signed by Soco Collins M.D. 12/19/2020 22:18) Weight:105.2 kg. Height/Length:67 inches. BMI:36.4 (Electronically signed by Lee Huynh PA-C 12/20/2020 13:04) Name Value Range Interpretation Code Description Data Libia rce(s) Supporting Document(s) ID Date Data Source [id number] 12/19/2020 07:11:00 AM EDT [facility] AP CHEST DATE OF EXAMINATION: 12/19/2020 2:16 EDT CHEST 1 VIEW INDICATION: Shortness of breath COMPARISON: None TECHNIQUE: A single AP film of the chest was obtained. FINDINGS: There is severe centrilobular emphysematous change with hyperlucentupper lobes and redistribution of vasculature to the lung bases. The heart isnormal in size. No pulmonary edema or pneumothorax. IMPRESSION: Chronic obstructive pulmonary disease Electronically signed in PS360 by: Felipe Schuler M.D. 12/19/2020 7:05 EDT Name Value Range Interpretation Code Description Data Libia rce(s) Supporting Document(s) ID Date Data Source [id number] 12/19/2020 03:40:00 AM EDT [facility] TSYSORDER [id number] Name Value Range Interpretation Code Description Data Libia rce(s) Supporting Document(s) COVID-19 NEGATIVE NEGATIVE [facility] Negative results should be treated as pr esumptive and, ifinconsistent with clinical signs and symptoms or necessaryfor patient management, should be tested with differentauthorized or cleared molecular tests.Negative results do not preclude SARS-CoV-2 infection andshould not be used as the sole basis for patient managementdecisions.This is a rapid molecular isothermal nucleic acidamplification technology (NAAT) in vitro diagnostic testutilizing a loop mediated isothermal amplification (LAMP)test with nicking endonuclease amplification reaction(NEAR) intended for the qualitative detection of nucleica yaya from the SARS-CoV-2 viral RNA in direct nasal,nasopharyngeal or throat swabs from individuals who aresuspected of COVID-19.Results are for the indentification of SARS-CoV-2 RNA. IraNZFX-PrA-5 RNA is generally detectable in respiratorysamples during the actue phase of infection. ID Date Data Source [id number] 12/25/2020 09:13:00 AM EDT [facility] kevin Name Value Range Interpretation Code Description Data Libia rce(s) Supporting Document(s) [facility] ID Date Data Source [id number] 12/25/2020 09:13:00 AM EDT [facility] Name Value Range Interpretation Code Description Data Libia rce(s) Supporting Document(s) [facility] ID Date Data Source [id number] 12/21/2020 04:05:00 PM EDT [facility] kevin Name Value Range Interpretation Code Description Data Libia rce(s) Supporting Document(s) ORGANISM [facility] COLONY COUNT N [facility] ID Date Data Source [id number] 12/19/2020 03:22:00 AM EDT [facility] TSYSORDER [id number] Name Value Range Interpretation Code Description Data Libia rce(s) Supporting Document(s) URINE RBC NONE SEEN /hpf 0-3 [facility] URINE WBC 5-10 /hpf 0-5 H [facility] URINE EPITHELIAL CELLS 1+ /hpf 0 [facility] URINE BACTERIA 2+ NONE SEEN H [facility] ID Date Data Source [id number] 12/19/2020 03:18:00 AM EDT [facility] TSYSORDER [id number] Name Value Range Interpretation Code Description Data Libia rce(s) Supporting Document(s) URINE COLOR. [facility] URINE APPEARANCE SLIGHTY CLOUDY [facility] URINE GLUCOSE (UA) NEGATIVE mg/dL NEGATIVE [facility] URINE BILIRUBIN NEGATIVE NEGATIVE [facility] URINE KETONE NEGATIVE mg/dL NEGATIVE [facility]IFIC [facility]RAV[facility],URINE 1.025 1.005-1.030 [facility] URINE BLOOD NEGATIVE NEGATIVE [facility] PH,URINE 6.0 5.0-9.0 [facility] URINE PROTEIN NEGATIVE mg/dL NEGATIVE [facility] URINE UROBILINOGEN NORMAL(0.2-1) mg/dL 0-1 R [facility] URINE NITRATE POSITIVE NEGATIVE [facility] URINE LEUKOCYTE ESTERASE 1+(SMALL) NEGATIVE [facility] ID Date Data Source [id number] 12/19/2020 03:19:00 AM EDT [facility] TSYSORDER [id number] Name Value Range Interpretation Code Description Data Libia rce(s) Supporting Document(s) TROPONIN-HIGH SENSITIVITY 5.9 ng/L 0-60.4 [facility] ID Date Data Source [id number] 12/19/2020 03:19:00 AM EDT [facility] TSYSORDER [id number] Name Value Range Interpretation Code Description Data Libia rce(s) Supporting Document(s) MAGNESIUM 2.1 mg/dL 1.8-2.4 [facility] ID Date Data Source [id number] 12/19/2020 03:19:00 AM EDT [facility] TSYSORDER [id number] Name Value Range Interpretation Code Description Data Libia rce(s) Supporting Document(s) B-TYPE NATRIURETIC PEPTIDE 71 pg/ml 0-125 [facility] ID Date Data Source [id number] 12/19/2020 03:19:00 AM EDT [facility] TSYSORDER [id number] Name Value Range Interpretation Code Description Data Libia rce(s) Supporting Document(s) GLUCOSE 166 mg/dL 74-106 H [facility] BLOOD UREA NITROGEN 10 mg/dL 7-18 [facility] CREATININE 0.95 mg/dL 0.6-1.0 [facility] SODIUM 142 mmol/L 136-145 [facility] POTASSIUM 4.1 mmol/L 3.5-5.1 [facility] CHLORIDE 105 mmol/L 98-107 [facility] CO2 29 mmol/L 21-32 [facility] CALCIUM 9.5 mg/dL 8.5-10.1 [facility] ANION GAP 8.0 mmol/L 5-12 [facility] GLOMERULAR FILTRATION RATE 59 mL/min [facility] GFR IS CALCULATED IN mL/min/1.73m2 SERGIO L FUNCTION: >90MILDLY DECREASED: 60-89MILDY TO MODERATELY DECREASED: 45-59 MODERATELY TO SEVERELY DECREASED: 30-44SEVERELY DECREASED: 15-29RENAL FAILURE: <15 AST 11 U/L 15-37 L [facility] ALT 27 U/L 12-78 [facility] ALKALINE PHOSPHATASE 84 U/L 46-116 [facility] TOTAL BILIRUBIN 0.3 mg/dL 0.2-1.0 [facility] TOTAL PROTEIN 6.9 g/dl 6.4-8.2 [facility] ALBUMIN 3.0 gm/dL 3.4-5.0 L [facility] ID Date Data Source [id number] 12/19/2020 03:18:00 AM EDT [facility] TSYSORDER [id number] Name Value Range Interpretation Code Description Data Libia rce(s) Supporting Document(s) LACTIC ACID 1.8 mmol/L 0.4-2.0 [facility] ID Date Data Source [id number] 12/19/2020 02:54:00 AM EDT [facility] TSYSORDER [id number] Name Value Range Interpretation Code Description Data Libia rce(s) Supporting Document(s) WHITE BLOOD COUNT 10.7 K/mm3 4.0-10.0 H [facility] RED BLOOD COUNT 4.32 M/mm3 4.00-5.50 [facility] HEMOGLOBIN 11.3 gm/dL 12.0-16.0 L [facility] HEMATOCRIT 36.7 % 36.0-48.8 [facility] MEAN CELL VOLUME 85.0 fl 80-96 [facility] MEAN CORPUSCULAR HEMOGLOBIN 26.2 pg 27.0-31.0 L [facility] MEAN CORPUSCULAR HGB CONC 30.8 g/dl 32.0-36.0 L [facility] RED CELL DISTRIBUTION WIDTH 15.3 % 10.0-14.5 H [facility] PLATELET COUNT 311 K/mm3 172-450 [facility] MEAN PLATELET VOLUME 11.7 fl 9.0-13.0 [facility] GRAN % 72.8 % 50-80.0 [facility] IG% 0.6 % 0.0-0.2 H [facility] LYMPH % 17.7 % 25.0-50.0 L [facility] MONO % 4.1 % 2.0-10.0 [facility] EOS % 4.3 % 0-5.0 [facility] BASO % 0.5 % 0.0-2.0 [facility] GRAN # 7.8 K/mm3 2.0-8.00 [facility] IG# 0.1 K/mm3 0.0-0.2 [facility] LYMPH # 1.9 K/mm3 1.0-5.0 [facility] MONO # 0.4 K/mm3 0.10-1.20 [facility] EOS # 0.5 K/mm3 0.0-0.5 [facility] BASO # 0.1 K/mm3 0.0-0.2 [facility] ID Date Data Source [id number] 11/05/2020 11:13:00 AM EDT [facility] Name Value Range Interpretation Code Description Data Libia rce(s) Supporting Document(s) SARS coronavirus 2 RNA [Presence] in Res piratory specimen by DOUGLAS with probe detection NEGATIVE [facility] This lab was ordered by [facility] a nd reported by [facility]. ID Date Data Source [id number] 10/20/2020 10:56:00 AM EDT [facility] Name Value Range Interpretation Code Description Data Libia rce(s) Supporting Document(s) SARS-CoV-2 (COVID 19) NEGATIVE - SARS-CoV-2 (COVID19) [facility] This lab was ordered by [facility] a nd reported by [facility]. ID Date Data Source [id number] 06/19/2020 03:08:00 AM EST [facility] Name Value Range Interpretation Code Description Data Libia rce(s) Supporting Document(s) SARS coronavirus 2 RNA [Presence] in Res piratory specimen by DOUGLAS with probe detection NEGATIVE [facility] This lab was ordered by [facility] a nd reported by [facility]. ID Date Data Source [id number] 06/14/2020 12:00:00 AM EST [facility] Name Value Range Interpretation Code Description Data Libia rce(s) Supporting Document(s) SARS-CoV-2 (COVID-19) RNA [Presence] in Respiratory specimen by DOUGLAS with probe detection Not Detected [facility] This lab was ordered by [facility] and reported by [facility]. Procedure Social History No Information Vital Signs ID Date Data Source UNK Name Value Range Interpretation Code Description Data Source(s) Body weight 245.00 [lb_av] 245.00 [lb_av] [facility] ([facility]) stated Systolic blood pressure 145 mm[Hg] 145 mm[Hg] [facility] ([facility]) Diastolic blood pressure 87 mm[Hg] 87 mm[Hg] [facility] ([facility]) Body height 67 [in_i] 67 [in_i] [facility] ([facility]) 5'7" [place] body weight 135 [lb_av] 135 [lb_av] [facility] Body weight 111.132 kg 111.132 kg [facility] ([facility]) Body mass index (BMI) [Ratio] 38.4 kg/m2 38.4 k g/m2 [facility] ([facility]) Body surface area Derived from formula 2.20 m2 2.20 m2 [facility] ([facility]) Body weight 245.00 [lb_av] 245.00 [lb_av] [facility] ([facility]) [place] body weight 135 [lb_av] 135 [lb_av] [facility] Systolic blood pressure 144 mm[Hg] 144 mm[Hg] [facility] ([facility]) Diastolic blood pressure 84 mm[Hg] 84 mm[Hg] [facility] ([facility]) Heart rate 105 /min 105 /min [facility] ([facility]) Body temperature 98.2 [degF] 98.2 [degF] [facility] ([facility]) Body height 67 [in_i] 67 [in_i] [facility] 5'7" Body weight 111.132 kg 111.132 kg [facility] ([facility]) Body surface area Derived from formula 2.20 m2 2.20 m2 [facility] ([facility]) Body mass index (BMI) [Ratio] 38.4 kg/m2 38.4 k g/m2 [facility] Body height 66 [in_us] 66 [in_us] [facility] ([facility] Body mass index (BMI) [Ratio] 39.54 kg/m2 39.54 kg/m2 [facility] ([facility] Body temperature 98.1 [degF] 98.1 [degF] [facility] ([facility] ) Heart rate 90 /min 90 /min [facility] ([facility] Pattern: Regular Respiratory rate 14 /min 14 /min [facility] ([facility] ) Pattern: Unlabored Oxygen saturation in Arterial blood by Pulse oximetry 93 % 93 % [facility] ([facility] ) Oxygen gas flow Oxygen delivery system 2 L/min 2 L/min [facility] ([facility] ) 2L O2 Systolic blood pressure 150 mm[Hg] 150 mm[Hg] [facility] ([facility] ) Patient Position: Sitting; Cuff Location : Left Arm; Cuff Size: Standard Diastolic blood pressure 80 mm[Hg] 80 mm[Hg] [facility] ([facility] ) Patient Position: Sitting; Cuff Location : Left Arm; Cuff Size: Standard Body weight 245 [lb_av] 245 [lb_av] [facility] ([facility] Body surface area Derived from formula 2.18 m2 2.18 m2 [facility] ([facility] Body temperature 98.0 [degF] 98.0 [degF] [facility] ([facility]) Heart rate 84 /min 84 /min [facility] ([facility]) Body weight 232.00 [lb_av] 232.00 [lb_av] [facility] ([facility]) Body height 67 [in_i] 67 [in_i] [facility] 5'7" Body mass index (BMI) [Ratio] 36.3 kg/m2 36.3 k g/m2 [facility] ([facility]) [place] body weight 135 [lb_av] 135 [lb_av] [facility] ([facility]) Body weight 105.235 kg 105.235 kg [facility] ([facility]) Body surface area Derived from formula 2.15 m2 2.15 m2 [facility] ([facility]) Systolic blood pressure 132 mm[Hg] 132 mm[Hg] [facility] ([facility]) Diastolic blood pressure 75 mm[Hg] 75 mm[Hg] [facility] ([facility]) Body mass index (BMI) [Ratio] 36.3 kg/m2 36.3 k g/m2 [facility] ([facility]) [place] body weight 135 [lb_av] 135 [lb_av] [facility] ([facility]) Body weight 105.235 kg 105.235 kg [facility] ([facility]) Body surface area Derived from formula 2.15 m2 2.15 m2 [facility] ([facility]) Systolic blood pressure 123 mm[Hg] 123 mm[Hg] [facility] ([facility]) Diastolic blood pressure 75 mm[Hg] 75 mm[Hg] [facility] ([facility]) Heart rate 87 /min 87 /min [facility] ([facility]) Body height 67 [in_i] 67 [in_i] [facility] ([facility]) 5'7" Body weight 232.00 [lb_av] 232.00 [lb_av] [facility] ([facility]) Diastolic blood pressure 72 mm[Hg] 72 mm[Hg] [facility] ([facility]) [place] body weight 135 [lb_av] 135 [lb_av] [facility] ([facility]) Body weight 111.132 kg 111.132 kg [facility] ([facility]) Body surface area Derived from formula 2.20 m2 2.20 m2 [facility] ([facility]) Body height 67 [in_i] 67 [in_i] [facility] ([facility]) 5'7" Body weight 245.00 [lb_av] 245.00 [lb_av] [facility] ([facility]) stated Body mass index (BMI) [Ratio] 38.4 kg/m2 38.4 k g/m2 [facility] ([facility]) [place] body weight 135 [lb_av] 135 [lb_av] [facility] ([facility]) Body weight 111.132 kg 111.132 kg [facility] ([facility]) Body height 67 [in_i] 67 [in_i] [facility] ([facility]) 5'7" Body weight 245.00 [lb_av] 245.00 [lb_av] [facility] ([facility]) stated Body mass index (BMI) [Ratio] 38.4 kg/m2 38.4 k g/m2 [facility] ([facility]) Body surface area Derived from formula 2.20 m2 2.20 m2 [facility] ([facility]) Systolic blood pressure 135 mm[Hg] 135 mm[Hg] [facility]) Diastolic blood pressure 82 mm[Hg] 82 mm[Hg] [facility] ([facility]) Systolic blood pressure 144 mm[Hg] 144 mm[Hg] [facility]) Heart rate 88 /min 88 /min [facility] ([facility]) Body height 67 [in_i] 67 [in_i] [facility] ([facility]) 5'7" Body weight 245.00 [lb_av] 245.00 [lb_av] [facility] ([facility]) Body mass index (BMI) [Ratio] 38.4 kg/m2 38.4 k g/m2 [facility] ([facility]) [place] body weight 135 [lb_av] 135 [lb_av] [facility] ([facility]) Body weight 111.132 kg 111.132 kg [facility] ([facility]) Body surface area Derived from formula 2.20 m2 2.20 m2 [facility] ([facility]) Diastolic blood pressure 82 mm[Hg] 82 mm[Hg] [facility] ([facility]) Body mass index (BMI) [Ratio] 38.4 kg/m2 38.4 k g/m2 [facility] ([facility]) Body height 67 [in_i] 67 [in_i] [facility] ([facility]) 5'7" [place] body weight 135 [lb_av] 135 [lb_av] [facility] ([facility]) Body weight 245.00 [lb_av] 245.00 [lb_av] [facility] ([facility]) Body weight 111.132 kg 111.132 kg [facility] ([facility]) Heart rate 108 /min 108 /min [facility] ([facility]) Body surface area Derived from formula 2.20 m2 2.20 m2 [facility] ([facility]) Systolic blood pressure 134 mm[Hg] 134 mm[Hg] [facility] Diastolic blood pressure 72 mm[Hg] 72 mm[Hg] [facility] ([facility]) Body height 67 [in_i] 67 [in_i] [facility] ([facility]) 5'7" Body weight 245.00 [lb_av] 245.00 [lb_av] [facility] ([facility]) stated Body mass index (BMI) [Ratio] 38.4 kg/m2 38.4 k g/m2 [facility] [place] body weight 135 [lb_av] 135 [lb_av] [facility] ([facility]) Body weight 111.132 kg 111.132 kg [facility] ([facility]) Systolic blood pressure 132 mm[Hg] 132 mm[Hg] [facility] ([facility]) Body surface area Derived from formula 2.20 m2 2.20 m2 [facility] Patient Treatment Plan of Care Planned Activity Planned Date Details Description Data Source (s) Albuterol 0.833 MG/ML / Ipratropium [place] 0.167 MG/M L Inhalant Solution 03/05/2021 12:00:00 AM EDT [facility] ([facility]) 7 ACTUAT umeclidinium 0.0625 MG/ACTUAT Dry Powder Inha ler [Incruse] 03/05/2021 12:00:00 AM EDT [facility] ([facility] tiotropium 0.018 MG/ACTUAT Inhalant Powder [Spiriva] 021 12:00:00 AM EDT [facility] ([facility])
--- OUTSIDE RECORDS SUMMARY | 2021-05-10 15:54 | CCD ---
Author Author [facility] Organization [facility] Address Unknown Phone Unavailable Care Team Providers Care Clinical Education Academic Coordinator Name Role Phone Rasheed Barillas MD Unavailable [...] Unavailable Rasheed Barillas MD Unavailable Unavailable Ellie Newman MD Unavailable [...] Unavailable Unavailable Ellie Newman MD Unavailable Unavailable Magnolia, L Samara RESEARCH ASSISTANT MEMBER Unavailable Unavailable Magnolia, L Samara RESEARCH ASSISTANT MEMBER Unavailable Unavailable Jeanne, L Samara RESEARCH ASSISTANT MEMBER Unavailable Unavailable Jeanne, L Samara RESEARCH ASSISTANT MEMBER Unavailable Unavailable Magnolia, L Samara RESEARCH ASSISTANT MEMBER Unavailable Unavailable Jeanne, L Samara RESEARCH ASSISTANT MEMBER Unavailable Unavailable Magnolia, L Samara RESEARCH ASSISTANT MEMBER Unavailable Unavailable Magnolia, L Samara RESEARCH ASSISTANT MEMBER Unavailable Unavailable Jeanne, L Samara RESEARCH ASSISTANT MEMBER Unavailable Unavailable Jeanne, L Samara RESEARCH ASSISTANT MEMBER Unavailable Unavailable Magnolia, L Samara RESEARCH ASSISTANT MEMBER Unavailable Unavailable Magnolia, L Asmara RESEARCH ASSISTANT MEMBER Unavailable Unavailable Jeanne, L Samara RESEARCH ASSISTANT MEMBER Unavailable Unavailable Magnolia, L Samara RESEARCH ASSISTANT MEMBER Unavailable Unavailable Magnolia, L Samara RESEARCH ASSISTANT MEMBER Unavailable Unavailable Magnolia, L Samara RESEARCH ASSISTANT MEMBER Unavailable Unavailable Magnolia, L Samara RESEARCH ASSISTANT MEMBER Unavailable Unavailable Jeanne, L Samara RESEARCH ASSISTANT MEMBER Unavailable Unavailable Magnolia, L Samara RESEARCH ASSISTANT MEMBER Unavailable Unavailable Magnolia, L Samara RESEARCH ASSISTANT MEMBER Unavailable Unavailable Magnolia, L Samara RESEARCH ASSISTANT MEMBER Unavailable Unavailable Jeanne, L Samara RESEARCH ASSISTANT MEMBER Unavailable Unavailable Jeanne, L Samara RESEARCH ASSISTANT MEMBER Unavailable Unavailable Magnolia, L Samara RESEARCH ASSISTANT MEMBER Unavailable Unavailable Magnolia, L Samara RESEARCH ASSISTANT MEMBER Unavailable Unavailable Magnolia, L Samara RESEARCH ASSISTANT MEMBER Unavailable Unavailable Jeanne, L Samara RESEARCH ASSISTANT MEMBER Unavailable Unavailable Magnolia, L Samara RESEARCH ASSISTANT MEMBER Unavailable Unavailable Magnolia, L Samara RESEARCH ASSISTANT MEMBER Unavailable Unavailable Jeanne, L Samara RESEARCH ASSISTANT MEMBER Unavailable Unavailable Jeanne, L Samara RESEARCH ASSISTANT MEMBER Unavailable Unavailable Jeanne, L Samara RESEARCH ASSISTANT MEMBER Unavailable Unavailable Jeanne, L Samara RESEARCH ASSISTANT MEMBER Unavailable Unavailable Jeanne, L Samara RESEARCH ASSISTANT MEMBER Unavailable Unavailable Jeanne, L Samara RESEARCH ASSISTANT MEMBER Unavailable Unavailable Magnolia, L Samara RESEARCH ASSISTANT MEMBER Unavailable Unavailable Jeanne, L Samara RESEARCH ASSISTANT MEMBER Unavailable [facility] Unavailable Unavailable EMERTON, [...] A JENELLE MD Unavailable Unavailable EMERTON, A JEENLLE MD Unavailable Unavailable EMERTON, A JENELLE MD [...] A PINO DO Unavailable Unavailable SEARS, A PION DO Unavailable Unavailable Rechlin, P Jonathon DO [...] Unavailable Jason Pa JR, MD Unavailable Unavailable Jaosn Pa JR, MD Unavailable Unavailable Jason Pa [...] is protected by Article 27-F of the [facility] Public Health law. If you continue you may have access to information: Regarding HIV / AIDS; Provided by facilities licensed or operated by the [facility] Office of Mental Health; or Provided by the [facility] Office for People With Developmental Disabilities. If such information is present, then the following [facility] mandated warning applies: This information has been [...] further disc losure. 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 Expiration date unspecified Elizabeth Schilling completed [facility] ([facility]) Allergies and Adverse Reactions Type Description Substance Reaction Status Data Source(s ) Unknown Ketolides Ketolides Reaction Unknown NDOC ([facility]) Unknown Macrolide Antibiotics Macrolide Antibiotics Reaction Unkno wn NDOC ([facility]) Unknown metronidazole Metronidazole Reaction Unknown N DOC ([facility]) Allergy to substance Allergy to substance Allergy to substance DANAE ([facility]) Allergy to substance Allergy to substance Allergy to substance DANAE ([facility]) Family History Family Member Name Family Member Gender Family Member Status Date o f Status Description Data Source(s) Unknown Unknown Problem MEDENT ([facility]) Encounters Encounter Providers Location Date Indications Data Source(s ) Outpatient Attender: Jimliz Suggs/[place]/Michele/Rein dl 04/15/2021 12:15:00 PM EST MEDENT ([facility] Outpatient Attender: Jim Ember Suggs/[place]/Michele/Rein dl 03/09/2021 02:30:00 PM EDT MEDENT ([facility] <td><content ID="_[id number]">Office Visit</content>
<content><content styleCode="xLabel xSecondary">Encounter Reason</content>: <content ID="_[id number]" styleCode="xSecondary">COPD - The primary physician is Dr. [...] CT and pulmonary function tests.</content><content styleCode="xSecondary">, </content><content ID="_[id number]" styleCode="xSecondary"> [ADDITIONAL REASON] Sleep follow up - [...] stable. </content></content>
<content><content styleCode="xSecondary xLabel">Encounter Diagnosis</content>: <content ID="_[id number]" styleCode="xSecondary">COPD (CHRONIC OBSTRUCTIVE PULMONARY DISEASE)</content><content styleCode="xSecondary">, </content><content [id number]" styleCode="xSecondary">TOXIC EFFECT OF TOBACCO</content><content styleCode="xSecondary">, </content><content [id number]" styleCode="xSecondary">MORBID OBESITY</content><content styleCode="xSecondary">, </content><content ID="_[id number]" styleCode="xSecondary">JIGNESH (OBSTRUCTIVE SLEEP APNEA)</content><content styleCode="xSecondary">, </content><content [id number]" styleCode="xSecondary">HYPOXEMIA</content><content styleCode="xSecondary">, </content><content [id number]" styleCode="xSecondary">BRONCHIECTASIS</content></content></td><td><content styleCode="xSecondary">05-Mar-2021 11:00 </content><content styleCode="xLabel xSecondary"> To </content><content styleCode="xSecondary">05-Mar-2021 11:09</content>
<content styleCode="xSecondary">Pulmonary [facility] Office</content></td><td></td>Outpatient [facility] Pulmonary [facility] Office 03/05/2021 11:00:00 AM EDT - 03/05/2021 [...] Bosch/Rein dl 01/21/2021 03:45:00 PM EDT MEDENT ([facility]) Office Visit Attender: Yelena Suggs/Louie/Michele/R eindl 12/29/2020 01:00:00 PM EDT MEDENT ([facility]) Emergency Attender: SOCO COLLINS MD EMERGENCY ROOM-ER 03:44:00 AM EDT - 12/19/2020 09:20:00 AM EDT [facility] Patient discharged. Outpatient Attender: SOCO COLLINS MDConsultant: [facility] [id number] 12/19/2020 02:40:00 AM EDT [facility] Office Visit Attender: Yelena Suggs/[place]/Michele/R eindl 12/11/2020 09:45:00 AM EDT MEDENT ([facility]) O Attender: JENELLE VALDEZ MD 12/02/2020 12:00:00 AM EDT ND ([facility]) Patient admitted. Office Visit Attender: Jim Bosch/Rein dl 11/26/2020 01:00:00 PM EDT MEDENT ([facility]) Office Visit Attender: Yelena Suggs/[place]/Michele/R eindl 11/20/2020 01:45:00 PM EDT MEDENT ([facility]) Outpatient Attender: Jonathon Eubanks DO Ifeanyi/[place]/Michele/Darinel ndl 10/25/2020 01:23:00 AM EDT MEDENT ([facility]) Outpatient Attender: Jonathon Eubanks DO Ifeanyi/[place]/Michele/Darinel ndl 10/24/2020 01:23:00 AM EDT MEDENT ([facility]) Outpatient Attender: PINO MANNING DO Ifeanyi/[place]/Michele/Reindl 10/23/2020 01:23:00 AM EDT MEDENT ([facility]) Outpatient Attender: Ellie Suggs/[place]/Michele/Darinel ndl 10/22/2020 01:23:00 AM EDT MEDENT ([facility]) Jean Barillas MD: [address] [place] [address], Ph. Attender: Jean Barillas MD [facility] Medical 09/08/2020 12:00:00 AM EDT DANAE ([facility]) Phyllis Goldberg, RPA-C: [address] [place] [address], Ph. Attender: Phyllis Hale [facility] Medical 08/11/2020 12:00:00 AM EST DANAE ([facility]) Phyllis Goldberg RPA-C: [address] [place] [address], Ph. Attender: Phyllis Hale [facility] Medical 08/11/2020 12:00:00 AM EST DANAE ([facility]) Outpatient Attender: Jim Pa JR Ifeanyi/[place]/Michele/Rein dl 06/30/2020 08:45:00 AM EST MEDENT ([facility]) Outpatient Attender: Camilo Suggs/Louie/Michele/Chandana wright 06/20/2020 12:23:00 AM EST TIMI ([facility] Outpatient Referrer: Samara Angel NP 06/03/2020 08:16:0 2 AM EST Health system Immunizations Vaccine Date Status Description Data Source(s) COVID-19, mRNA, LNP-S, PF, 100 mcg/0.5 mL dose 09/09/2020 12 :39:00 PM EDT completed .5 mL DANAE ([facility]) COVID-19 VACCINE Moderna 09/09/2020 12:00:00 AM EDT completed [facility] Vaccine Series Complete: YESThis Data wa s Submitted to [facility] Via [employer]. COVID-19, mRNA, LNP-S, PF, 100 mcg/0.5 mL dose 08/11/2020 02 :56:57 PM EST completed .5 mL DANAE ([facility]) COVID-19, mRNA, LNP-S, PF, 100 mcg/0.5 mL dose 08/11/2020 02 :56:57 PM EST completed .5 mL DANAE ([facility]) COVID-19 VACCINE Moderna 08/11/2020 12:00:00 AM EST completed [facility] Vaccine Series Complete: NOThis Data was Submitted to [facility] Via [employer]. Medications Medication Brand Name Start Date Product Form Dose Route Admi nistrative Instructions Pharmacy Instructions Status Indications Reaction Description Data Source(s) 7 ACTUAT umeclidinium 0.0625 MG/ACTUAT D ry Powder Inhaler [Incruse] Incruse Ellipta 62.5 MCG/INH Inhalation Aerosol Powder Breath Activated Incruse Ellipta 62.5 MCG/INH Inhalation Aerosol Powder Breath Activated 03/05/2021 12:00:00 AM EDT 1 {Puff} [id number] active Incruse Ellipta [facility] ([facility]) Albuterol 0.833 MG/ML / Ipratropium Brom sherman 0.167 MG/ML Inhalant Solution Ipratropium-Albuterol 0.5-2.5 (3) MG/3ML Inhalation Solution Ipratropium- Albuterol 0.5-2.5 (3) MG/3ML Inhalation Solution 03/05/2021 12:00:00 AM EDT 1 {Vial} [id number] active Ipratropium-Albuterol Al lScripts ([facility]) Medication taken as needed. 2 boxes with 2 refills tiotropium 0.018 MG/ACTUAT Inhalant Powd er [Spiriva] Spiriva HandiHaler 18 MCG Inhalation Capsule Spiriva HandiHaler 18 MCG Inhalation Capsule 12:00:00 AM EDT 1 {Capsule} [id number] suspended Spiriva HandiHaler [facility] ([facility]) replacing incruse Insurance Providers Payer name Policy type / Coverage type Policy ID Covered constitution party ID Covered constitution party's relationship to romero Policy Romero Plan Information [id number] MEDICARE [id number] Mariza [id number] MEDICARE [id number] SP [id number] [id number] [id number] [facility] [id number] SP [id number] [facility] [id number] SP [id number] [facility] [id number] SP [id number] MEDICA[place] [id number] SP [id number] [place] [id number] SP [id number] Y EMEDNY [id number] SP [id number] [facility] [id number] SP [id number] [facility] MEDICARE [id number] Mariza [id number] MEDICAID [id number] Mariza [id number] MEDICAID [id number] S [id number] HUMANA GOLD CLASSIC [id number] S [id number] HUMANA GOLD CLASSIC [id number] S [id number] [facility] [id number] SP [id number] [facility] [id number] SP [id number] [facility](MCAID) O [id number] S [id number] SELF PAY ONLY [id number] SP [id number] HUMANA GOLD [id number] SP [id number] MEDICAID M [id number] S [id number] MEDICARE [id number] SP [id number] A [facility] MEDICARE PI PI MEDICAID PI PI HUMANA GOLD O [id number] S [id number] HUMANA GOLD CLASSIC [id number] S [id number] MEDICAID [id number] S [id number] HUMA[employer] GOLD [id number] SP [id number] MEDICAID [id number] SP [id number] [facility] [id number] SP [id number] [place]/Medicare Commercial [id number] [facility] [id number] SP [id number] [facility] [facility] MLTC [id number] SP [id number] MEDICARE C [id number] S [id number] [facility](MCAID) O [id number] S [id number] [employer] [facility] [id number] SP [id number] HU[employer] GOLD [id number] SP [id number] [facility] [id number] SP [id number] MEDICARE [id number] SP [id number] Problems, Conditions, and Diagnoses Code Display Name Description Problem Type Effective Dates Data Source(s) Z90.89 Acquired absence of other organs ACQUIRED ABSENC E OF OTHER ORGANS Diagnosis 12/19/2020 03:44:00 AM [facility] Z90.49 Acquired absence of other specified part s of digestive tract ACQUIRED ABSENCE OF OTHER SPECIFIED PARTS OF DIGES Diagnosis 12/19/2020 03:44:0 0 AM [facility] Z79.891 MCC (current) use of opiate analge sic STRATEGY INTERN (CURRENT) USE OF OPIATE ANALGESIC Diagnosis 12/19/2020 03:44:00 AM [facility] Z79.899 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 terminal 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 O THER STRATEGY INTERN (CURRENT) DRUG THERAPY Diagnosis 12/19/2020 03:44:00 AM [facility] 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 STRATEGY INTERN (CU RRENT) USE OF ASPIRIN Diagnosis 12/19/2020 03:44:00 AM [facility] Z79.51 MCC (current) use of inhaled stero ids STRATEGY INTERN (CURRENT) USE OF INHALED STEROIDS Diagnosis 12/19/2020 03:44:00 AM [facility] Z20.822 CONTACT WITH AND (SUSPECTED) EXPOSURE TO COVID-19 CONTACT WITH AND (SUSPECTED) EXPOSURE TO COVID-19 Diagnosis 12/19/2020 03:44:00 AM [facility] F17.210 Nicotine dependence, cigarettes, uncompl icated NICOTINE DEPENDENCE, CIGARETTES, UNCOMPLICATED Diagnosis 12/19/2020 03:44:00 AM [facility] N30.90 Cystitis, unspecified without hematuria CYSTITIS, UNSPECIFIED WITHOUT HEMATURIA Diagnosis 12/19/2020 03:44:00 AM [facility] J44.1 Chronic obstructive pulmonary disease wi th (acute) exacerbation CHRONIC OBSTRUCTIVE PULMONARY DISEASE W (ACUTE) EX Diagnosis 12/19/2020 03:44: 00 AM [facility] R06.00 Dyspnea, unspecified DYSPNEA, UNSPECIFIED Diagnosis 12/19/2020 03:44:00 AM [facility] I73.9 Peripheral vascular disease, unspecified Peripheral vascular disease, unspecified Diagnosis 12/02/2020 12:00:00 AM EDT [facility] ([facility]) N39.0 Urinary tract infection, site not specif ied Urinary tract infection, site not specified Diagnosis 12/02/2020 12:00:00 AM EDT [facility] ([facility]) Z79.82 MCC (current) 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) 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 Diagnosis 12/02/2020 12:00:00 AM EDT ND ([facility] ) Z99.81 Dependence on supplemental oxygen Dependence on supplemental oxygen Diagnosis 12/02/2020 12:00:00 AM EDT ND ([facility] ) Z87.891 Personal history of nicotine dependence Personal history of nicotine dependence Diagnosis 12/02/2020 12:00:00 AM EDT ND ([facility]) K76.0 Fatty (change of) liver, not elsewhere c lassified Fatty (change of) liver, not elsewhere classified Diagnosis 12/02/2020 12:00:00 AM EDT NDOC ([facility]) E66.01 Morbid (severe) obesity due to excess ca lories Morbid (severe) obesity due to excess calories Diagnosis 12/02/2020 12:00:00 AM EDT NDOC ([facility]) K57.90 Diverticulosis of intestine, part unspecified, without perforation or abscess without bleeding Diverticulosis of intestine, part unspec ified, without perforation or abscess without bleeding Diagnosis 12/02/2020 12:00:00 AM EDT NDOC ([facility]) G47.33 Obstructive sleep apnea (adult) (pediatr ic) Obstructive sleep apnea (adult) (pediatric) Diagnosis 12/02/2020 12:00:00 AM EDT NDOC ([facility]) J44.9 Chronic obstructive pulmonary disease, u nspecified Chronic obstructive pulmonary disease, unspecified Diagnosis 12/02/2020 12:00:00 AM EDT ND OC ([facility]) K21.9 Gastro-esophageal reflux disease without esophagitis Gastro-esophageal reflux disease without esophagitis Diagnosis 12/02/2020 12:00:00 AM ED T NDOC ([facility]) I27.20 Pulmonary hypertension, unspecified Pulmonary hy pertension, unspecified Diagnosis 12/02/2020 12:00:00 AM EDT NDOC ([facility] ) E11.9 Type 2 diabetes mellitus without complic ations Type 2 diabetes mellitus without complications Diagnosis 12/02/2020 12:00:00 AM EDT NDOC ([facility]) I50.9 Heart failure, unspecified Heart failure, unspecified Diagnosis 12/02/2020 12:00:00 AM EDT NDOC ([facility]) I11.0 Hypertensive heart disease with heart fa ilure Hypertensive heart disease with heart failure Diagnosis 12/02/2020 12:00:00 AM EDT NDOC ([facility]) 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 Diagnosis 12/02/2020 12:00:00 AM EDT NDOC ([facility]) Z43.3 Encounter for attention to colostomy Encounter f or attention to colostomy Diagnosis 12/02/2020 12:00:00 AM EDT NDOC ([facility] ) T81.49XD T81.49XD Infection following a procedure, other surgical site, subsequent encounter Diagnosis 12/02/2020 12:00:00 AM EDT NDOC ([facility]) [id number] Essential hypertension Essential hypertension Problem 11/11/2020 12:00:00 AM EDT MEDENT ([facility] ) Surgeries/Procedures Procedure Description Date Indications Data Source(s) OFFICE OUTPATIENT VISIT 10 MINUTES 04/15/2021 12:00:00 AM EST MEDENT ([facility] ) OFFICE OUTPATIENT VISIT 10 MINUTES 03/09/2021 12:00:00 AM EDT MEDENT ([facility] ) OFFICE OUTPATIENT VISIT 25 MINUTES 03/05 [...] RSPSE SPMTRY PRE&POST-BRNCDILAT ADMN <td>PRE AND POST (85040)</td><td></td><td>Status: Completed 05-Mar-2021 </td> 03/05/2021 12:00:00 AM EDT - 03/05/2021 12:00:00 AM EDT [facility] ([facility]) OFFICE OUTPATIENT VISIT 15 MINUTES 01/21/2021 12:00:00 AM EDT MEDENT ([facility] ) CRITICAL CARE ILL/INJURED PATIENT INIT 30-74 MIN 10/25 12:00:00 AM EDT MEDENT ([facility] ) CRITICAL CARE ILL/INJURED PATIENT INIT 30-74 MIN 10/24 12:00:00 AM EDT MEDENT ([facility] ) CRITICAL CARE ILL/INJURED PATIENT ADDL 30 MIN 10/25/19 12:00:00 AM EDT MEDENT ([facility]) CRITICAL CARE ILL/INJURED PATIENT INIT 30-74 MIN 10/23 12:00:00 AM EDT MEDENT ([facility]) CRITICAL CARE ILL/INJURED PATIENT ADDL 30 MIN 10/24/19 12:00:00 AM EDT MEDENT ([facility]) Insertion Of Non-Tunneled Centrally Inserted Central Venous Mónica 10/22/2020 12:00:00 AM EDT MEDENT ([facility]) Ultrasound Guidance For Vascular Access Requiring Ultrasound Eval 10/22/2020 12:00:00 AM EDT MEDENT ([facility]) CRITICAL CARE ILL/INJURED PATIENT INIT 30-74 MIN 10/22 12:00:00 AM EDT MEDENT ([facility]) CRITICAL CARE ILL/INJURED PATIENT ADDL 30 MIN 10/23/19 12:00:00 AM EDT MEDENT ([facility]) OFFICE OUTPATIENT VISIT 15 MINUTES 06/30/2020 12:00:00 AM EST MEDENT ([facility]) [facility] HOSPITAL CARE/DAY 25 MINUTES 06/20/2020 12:00:00 AM EST MEDENT ([facility]) Results ID Date Data Source [id number] 02/18/2021 08:31:00 PM EDT [facility] Name Value Range Interpretation Code Description Data Libia rce(s) Supporting Document(s) SARS-CoV-2 (COVID 19) NEGATIVE - SARS-CoV-2 (COVID19) [facility] This lab was ordered by [facility] a nd reported by [facility]. ID Date Data Source [id number] 01/06/2021 07:31:00 PM EDT [facility] Name Value Range Interpretation Code Description Data Libia rce(s) Supporting Document(s) SARS coronavirus 2 RNA [Presence] in Res piratory specimen by DOUGLAS with probe detection NEGATIVE [facility] This lab was ordered by [facility] a nd reported by [facility]. ID Date Data Source [id number] 01/05/2021 11:15:00 PM EDT [facility] Name Value Range Interpretation Code Description Data Libia rce(s) Supporting Document(s) SARS coronavirus 2 RNA [Presence] in Res piratory specimen by DOUGLAS with probe detection NEGATIVE [facility] This lab was ordered by [facility] a nd reported by [facility]. ID Date Data Source [id number] 12/20/2020 01:06:00 PM EDT [facility] Patient: ELIAZBETH SCHILLING Report - Physicians/[facility].VisitID: [id number] [place] [address] [phone], FRegistration Date/Time: 12/19/2020 01:57 Weight:105.2 kg. Height/Length:67 inches. BMI:36.4 FAMILY HISTORYNo significant family medical history. (Electronically signed by Soco Collins M.D. 12/19/2020 22:18) Weight:105.2 kg. Height/Length:67 inches. BMI:36.4 (Electronically signed by Lee Huynh PA-C 12/20/2020 13:04) Name Value Range Interpretation Code Description Data Libia rce(s) Supporting Document(s) ID Date Data Source [id number] 12/19/2020 07:11:00 AM EDT [facility] [...] rce(s) Supporting Document(s) ID Date Data Source [id number] 12/19/2020 03:40:00 AM EDT [facility] kevin TSYSORDER [id number] Name Value Range Interpretation Code Description Data Libia rce(s) Supporting Document(s) COVID-19 NEGATIVE NEGATIVE [facility] Negative results should be treated as pr [...] are for the indentification of SARS-CoV-2 RNA. [id number] RNA is generally detectable in respiratorysamples during the actue phase of infection. ID Date Data Source [id number] 12/25/2020 09:13:00 AM EDT [facility] kevin Name Value Range Interpretation Code Description Data Libia rce(s) Supporting Document(s) [facility] ID Date Data Source [id number] 12/25/2020 09:13:00 AM EDT [facility] Name Value Range Interpretation Code Description Data Libia rce(s) Supporting Document(s) [facility] ID Date Data Source [id number] 12/21/2020 04:05:00 PM EDT [facility] kevin Name Value Range Interpretation Code Description Data Libia rce(s) Supporting Document(s) ORGANISM [facility] COLONY COUNT N [facility] ID Date Data Source [id number] 12/19/2020 03:22:00 AM EDT [facility] [facility] TSYSORDER [id number] Name Value Range Interpretation Code Description Data Libia rce(s) Supporting Document(s) URINE RBC NONE SEEN /hpf 0-3 [facility] URINE WBC 5-10 /hpf 0-5 H [facility] URINE EPITHELIAL CELLS 1+ /hpf 0 [facility] URINE BACTERIA 2+ NONE SEEN H [facility] ID Date Data Source [id number] 12/19/2020 03:18:00 AM EDT [facility] TSYSORDER [id number] Name Value Range Interpretation Code Description Data Libia rce(s) Supporting Document(s) URINE COLOR. [facility] URINE APPEARANCE SLIGHTY CLOUDY [facility] URINE GLUCOSE (UA) NEGATIVE mg/dL NEGATIVE [facility] URINE BILIRUBIN NEGATIVE NEGATIVE [facility] URINE KETONE NEGATIVE mg/dL NEGATIVE [facility],URINE 1.025 1.005-1.030 [facility] URINE BLOOD NEGATIVE NEGATIVE [facility] PH,URINE 6.0 5.0-9.0 [facility] URINE PROTEIN NEGATIVE mg/dL NEGATIVE [facility] UR[facility] UROBILINOGEN NORMAL(0.2-1) mg/dL 0-1 R [facility] URINE NITRATE POSITIVE NEGATIVE [facility] URINE LEUKOCYTE ESTERASE 1+(SMALL) NEGATIVE [facility] ID Date Data Source [id number] 12/19/2020 03:19:00 AM EDT [facility] TSYSORDER [id number] Name Value Range Interpretation Code Description Data Libia rce(s) Supporting Document(s) TROPONIN-HIGH SENSITIVITY 5.9 ng/L 0-60.4 [facility] ID Date Data Source [id number] 12/19/2020 03:19:00 AM EDT [facility] TSYSORDER [id number] Name Value Range Interpretation Code Description Data Libia rce(s) Supporting Document(s) MAGNESIUM 2.1 mg/dL 1.8-2.4 [facility] ID Date Data Source [id number] 12/19/2020 03:19:00 AM EDT [facility] TSYSORDER [id number] Name Value Range Interpretation Code Description Data Libia rce(s) Supporting Document(s) B-TYPE NATRIURETIC PEPTIDE 71 pg/ml 0-125 [facility] ID Date Data Source [id number] 12/19/2020 03:19:00 AM EDT [facility] TSYSORDER [id number] Name Value Range Interpretation Code Description Data Libia rce(s) Supporting Document(s) GLUCOSE 166 mg/dL 74-106 H [facility] BLOOD UREA NITROGEN 10 mg/dL 7-18 [facility] CREATININE 0.95 mg/dL 0.6-1.0 [facility] SODIUM 142 mmol/L 136-145 [facility] POTASSIUM 4.1 mmol/L 3.5-5.1 [facility] CHLORIDE 105 mmol/L 98-107 [facility] CO2 29 mmol/L 21-32 [facility] CALCIUM 9.5 mg/dL 8.5-10.1 [facility] ANION GAP 8.0 mmol/L 5-12 [facility] GLOMERULAR FILTRATION RATE 59 mL/min [facility] GFR IS CALCULATED IN mL/min/1.73m2 SERGIO L FUNCTION: >90MILDLY DECREASED: 60-89MILDY TO MODERATELY DECREASED: 45-59 MODERATELY TO SEVERELY DECREASED: 30-44SEVERELY DECREASED: 15-29RENAL FAILURE: <15 AST 11 U/L 15-37 L [facility] ALT 27 U/L 12-78 [facility] ALKALINE PHOSPHATASE 84 U/L 46-116 [facility] TOTAL BILIRUBIN 0.3 mg/dL 0.2-1.0 [facility] TOTAL PROTEIN 6.9 g/dl 6.4-8.2 [facility] ALBUMIN 3.0 gm/dL 3.4-5.0 L [facility] ID Date Data Source [id number] 12/19/2020 03:18:[address] [facility] TSYSORDER [id number] Name Value Range Interpretation Code Description Data Libia rce(s) Supporting Document(s) LACTIC ACID 1.8 mmol/L 0.4-2.0 [facility] ID Date Data Source [id number] 12/19/2020 02:54:[address] [facility] TSYSORDER [id number] Name Value Range Interpretation Code Description Data Libia rce(s) Supporting Document(s) WHITE BLOOD COUNT 10.7 K/mm3 4.0-10.0 H [facility] RED BLOOD COUNT 4.32 M/mm3 4.00-5.50 [facility] HEMOGLOBIN 11.3 gm/dL 12.0-16.0 L [facility] HEMATOCRIT 36.7 % 36.0-48.8 [facility] MEAN CELL VOLUME 85.0 fl 80-96 [facility] MEAN CORPUSCULAR HEMOGLOBIN 26.2 pg 27.0-31.0 L [facility] MEAN CORPUSCULAR HGB CONC 30.8 g/dl 32.0-36.0 L [facility] RED CELL DISTRIBUTION WIDTH 15.3 % 10.0-14.5 H [facility] PLATELET COUNT 311 K/mm3 172-450 [facility] MEAN PLATELET VOLUME 11.7 fl 9.0-13.0 [facility] pital GRAN % 72.8 % 50-80.0 [facility] IG% 0.6 % 0.0-0.2 H [facility] LYMPH % 17.7 % 25.0-50.0 L [facility] MONO % 4.1 % 2.0-10.0 [facility] EOS % 4.3 % 0-5.0 [facility] BASO % 0.5 % 0.0-2.0 [facility] GRAN # 7.8 K/mm3 2.0-8.00 [facility] IG# 0.1 K/mm3 0.0-0.2 [facility] LYMPH # 1.9 K/mm3 1.0-5.0 [facility] MONO # 0.4 K/mm3 0.10-1.20 [facility] EOS # 0.5 K/mm3 0.0-0.5 [facility] BASO # 0.1 K/mm3 0.0-0.2 [facility] ID Date Data Source [id number] 11/05/2020 11:13:00 AM EDT [facility] Name Value Range Interpretation Code Description Data Libia rce(s) Supporting Document(s) SARS coronavirus 2 RNA [Presence] in Res piratory specimen by DOUGLAS with probe detection NEGATIVE [facility] This lab was ordered by [facility] a nd reported by [facility]. ID Date Data Source [id number] 10/20/2020 10:56:00 AM EDT [facility] Name Value Range Interpretation Code Description Data Libia rce(s) Supporting Document(s) SARS-CoV-2 (COVID 19) NEGATIVE - SARS-CoV-2 (COVID19) [facility] This lab was ordered by [facility] a nd reported by [facility]. ID Date Data Source [id number] 06/19/2020 03:08:00 AM EST [facility] Name Value Range Interpretation Code Description Data Libia rce(s) Supporting Document(s) SARS coronavirus 2 RNA [Presence] in Res piratory specimen by DOUGLAS with probe detection NEGATIVE [facility] This lab was ordered by [facility] a nd reported by [facility]. ID Date Data Source [id number] 06/14/2020 12:00:00 AM EST [facility] Name Value Range Interpretation Code Description Data Libia rce(s) Supporting Document(s) SARS-CoV-2 (COVID-19) RNA [Presence] in Respiratory specimen by DOUGLAS with probe detection Not Detected [facility] This lab was ordered by [facility] and reported by [facility]. Procedure Social History No Information Vital Signs ID Date Data Source UNK Name Value Range Interpretation Code Description Data Source(s) Systolic blood pressure 145 mm[Hg] 145 mm[Hg] [facility] ([facility]) Diastolic blood pressure 87 mm[Hg] 87 mm[Hg] [facility] ([facility]) Body height 67 [in_i] 67 [in_i] [facility] ([facility]) 5'7" Body weight 245.00 [lb_av] 245.00 [lb_av] [facility] stated Body weight 111.132 kg 111.132 kg [facility] ([facility]) Body mass index (BMI) [Ratio] 38.4 kg/m2 38.4 k g/m2 [facility] ([facility]) [place] body weight 135 [lb_av] 135 [lb_av] [facility] Body surface area Derived from formula 2.20 m2 2.20 m2 [facility] ([facility]) Systolic blood pressure 144 mm[Hg] 144 mm[Hg] [facility] ([facility]) Diastolic blood pressure 84 mm[Hg] 84 mm[Hg] [facility] ([facility]) Heart rate 105 /min 105 /min [facility] ([facility]) Body temperature 98.2 [degF] 98.2 [degF] [facility] ([facility]) Body height 67 [in_i] 67 [in_i] [facility] ([facility]) 5'7" Body weight 111.132 kg 111.132 kg [facility] ([facility] ) [place] body weight 135 [lb_av] 135 [lb_av] [facility] ([facility]) Body weight 245.00 [lb_av] 245.00 [lb_av] [facility] ([facility]) Body surface area Derived from formula 2.20 m2 2.20 m2 [facility] ([facility]) Body mass index (BMI) [Ratio] 38.4 kg/m2 38.4 k g/m2 [facility] ([facility], ) Body temperature 98.1 [degF] 98.1 [degF] [facility] ([facility] ) Body height 66 [in_us] 66 [in_us] [facility] ([facility] Body mass index (BMI) [Ratio] 39.54 kg/m2 39.54 kg/m2 [facility] ([facility] ) Heart rate 90 /min 90 /min [facility] ([facility] ) Pattern: Regular Respiratory rate [...] 2.18 m2 [facility] ([facility] ) Heart rate 84 /min 84 /min [facility] ([facility], ) Body height 67 [in_i] 67 [in_i] [facility] ([facility], ) 5'7" Body mass index (BMI) [Ratio] 36.3 kg/m2 36.3 k g/m2 [facility] ([facility]) [place] body weight 135 [lb_av] 135 [lb_av] [facility] ([facility]) Body surface area Derived from formula 2.15 m2 2.15 m2 [facility] ([facility]) Body temperature 98.0 [degF] 98[facility]0 [facility]degF] [facility] Body weight 232.00 [lb_av] 232.00 [lb_av] [facility] ([facility]) Body weight 105.235 kg 105.235 kg [facility] ([facility]) Systolic blood pressure 132 mm[Hg] 132 mm[Hg] [facility] Diastolic blood pressure 75 mm[Hg] 75 mm[Hg] [facility] ([facility]) Body mass index (BMI) [Ratio] 36.3 kg/m2 36.3 k g/m2 [facility] ([facility]) [place] body weight 135 [lb_av] 135 [lb_av] [facility] ([facility]) Body weight 105.235 kg 105.235 kg [facility] ([facility]) Body surface area Derived from formula 2.15 m2 2.15 m2 [facility] ([facility]) Systolic blood pressure 123 mm[Hg] 123 mm[Hg] [facility] Diastolic blood pressure 75 mm[Hg] 75 mm[Hg] [facility] ([facility]) Heart rate 87 /min 87 /min [facility] ([facility]) Body height 67 [in_i] 67 [in_i] [facility] ([facility]) 5'7" Body weight 232.00 [lb_av] 232.00 [lb_av] [facility] ([facility]) [place] body weight 135 [lb_av] 135 [lb_av] [facility] ([facility]) Body weight 111.132 kg 111.132 kg [facility] ([facility]) Diastolic blood pressure 72 mm[Hg] 72 mm[Hg] [facility] ([facility]) Body height 67 [in_i] 67 [in_i] [facility] ([facility]) 5'7" Body weight 245.00 [lb_av] 245.00 [lb_av] [facility] ([facility]) stated Body mass index (BMI) [Ratio] 38.4 kg/m2 38.4 k g[facility] Body surface area Derived from formula 2.20 m2 2.20 m2 [facility] ([facility]) Body surface area Derived from formula 2.20 m2 2.20 m2 [facility] ([facility]) Body height 67 [in_i] 67 [in_i] [facility] ([facility]) 5'7" Body weight 245.00 [lb_av] 245.00 [lb_av] [facility] ([facility]) stated Body mass index (BMI) [Ratio] 38.4 kg/m2 38.4 k g/m2 [facility] ([facility]) [place] body weight 135 [lb_av] 135 [lb_av] [facility] ([facility]) Body weight 111.132 kg 111.132 kg [facility] ([facility]) Systolic blood pressure 135 mm[Hg] 135 mm[Hg] M [facility] ([facility]) Systolic blood pressure 144 mm[Hg] 144 [facility]Hg[facility] Heart rate 88 /min 88 /min [facility] ([facility]) Body height 67 [in_i] 67 [in_i] [facility] ([facility]) 5'7" Body weight 245.00 [lb_av] 245.00 [lb_av] [facility] ([facility]) Body mass index (BMI) [Ratio] 38.4 kg/m2 38.4 k g/m2 [facility] ([facility]) Diastolic blood pressure 82 mm[Hg] 82 mm[Hg] [facility] [place] body weight 135 [lb_av] 135 [lb_av] [facility] ([facility]) Body weight 111.132 kg [facility] Body surface area Derived from formula 2.20 m2 2.20 m2 [facility] Diastolic blood pressure 82 mm[Hg] 82 mm[Hg] [facility] ([facility]) [place] body weight 135 [lb_av] 135 [lb_av] [facility] ([facility]) Body height 67 [in_i] 67 [in_i] [facility] 5'7" Body weight 245.00 [lb_av] 245.00 [lb_av] [facility] ([facility]) Heart rate 108 /min 108 /min [facility] ([facility]) Body mass index (BMI) [Ratio] 38.4 kg/m2 38.4 k g/m2 [facility] ([facility]) Body weight 111.132 kg 111.132 kg [facility] ([facility]) Body surface area Derived from formula 2.20 m2 2.20 m2 [facility] ([facility]) Systolic blood pressure 134 mm[Hg] 134 mm[Hg] [facility] ([facility]) Diastolic blood pressure 72 mm[Hg] 72 mm[Hg] [facility] ([facility]) Body height 67 [in_i] 67 [in_i] [facility] ([facility]) 5'7" Body weight 245.00 [lb_av] 245.00 [lb_av] [facility] ([facility]) stated Body mass index (BMI) [Ratio] 38.4 kg/m2 38.4 k g/m2 [facility] ([facility]) [place] body weight 135 [lb_av] 135 [lb_av] [facility] ([facility]) Body weight 111.132 kg 111.132 kg [facility] ([facility]) Systolic blood pressure 132 mm[Hg] 132 mm[Hg] M [facility] ([facility]) Body surface area Derived from formula 2.20 m2 2.20 [facility] Patient Treatment Plan of Care Planned Activity Planned Date Details Description Data Source (s) Albuterol 0.833 MG/ML / Ipratropium [place] 0.167 MG/M L Inhalant Solution 03/05/2021 12:00:00 AM EDT [facility] ([facility]) 7 ACTUAT umeclidinium 0.0625 MG/ACTUAT Dry Powder Inha ler [Incruse] 03/05/2021 12:00:00 AM EDT [facility] ([facility]) tiotropium 0.018 MG/ACTUAT Inhalant Powder [Spiriva] 021 12:00:00 AM EDT [facility] ([facility])
[2021-05-10] MEDS ORDERED: PROPARACAINE 0.5% OPHTH SOL 15ML OD ONE (16:25)
[2021-05-10] MEDS ORDERED: FLUORESCEIN OPHTH 1 MG STRIP OD ONE (16:25)
[2021-05-10] MEDS ORDERED: CLINDAMYCIN 150MG CAPSULE PO ONE (17:00)
[2021-05-10] MEDS ORDERED: POLYTRIM OPTH DROPS 10ML OD ONE (17:00)
[2021-05-10] MEDS ORDERED: POLYSOL OP (17:01)
[2021-05-10] MEDS ORDERED: CLEO300C2 PO (17:01)
[2021-05-10 17:29] VITALS: BP 158/92
== END 2021-05-10 17:31 | disposition home or self-care (01) ==
LOC: M ED 14:11
DX: H01.001 Unspecified blepharitis right upper eyelid (principal); H01.002 Unspecified blepharitis right lower eyelid; H10.31 Unspecified acute conjunctivitis, right eye; Z88.0 Allergy status to penicillin; Z88.1 Allergy status to other antibiotic agents; Z88.8 Allergy status to other drugs, medicaments and biological substances; Z79.899 Other long term (current) drug therapy; Z79.82 Long term (current) 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

== ENCOUNTER → 2021-08-26 | Outpatient (CLI) | payer MEDICARE, MEDICAID ==
[~2021-08-26] MED LIST changes: +CLEO300C2 PO; -OLOP0.1D OU; +OLOP5DRO16 OU; +OMEP-173; -OMEP-218; +POLYSOL OP
== END ==
LOC: M RAD 16:50
PROVIDERS: ATTEND Family Medicine
DX: M51.37 Other intervertebral disc degeneration, lumbosacral region (principal); M48.07 Spinal stenosis, lumbosacral region; M25.78 Osteophyte, vertebrae

== ENCOUNTER → 2021-10-27 | Outpatient (CLI) | payer MEDICARE, MEDICAID ==
[~2021-10-27] MED LIST changes: -MUCITAB PO; +PHEN-879 PO
== END ==
LOC: M RAD 16:02
PROVIDERS: ATTEND Nurse Practitioner Family
DX: J44.9 Chronic obstructive pulmonary disease, unspecified (principal); I27.20 Pulmonary hypertension, unspecified; K76.0 Fatty (change of) liver, not elsewhere classified

== ENCOUNTER 2022-03-21 14:16 | Inpatient (IN) | payer MEDICARE, MEDICAID ==
[~2022-03-21] VITALS: Ht 170.2 cm; Wt 102.6 kg
[2022-03-21] MEDS: INSULIN LISPRO (NovoLOG) PER UNIT SC ONE ×2 (01:00→19:15)
[~2022-03-21 14:16] MED LIST changes: +ALBU2.5V10 INH; -ALBU83IN INH; +LEVO1TAB40 PO; -LEVO750T13 PO
[2022-03-21 15:09] LABS: BASO # 0.1 10^3/uL (0.0-0.2); BASO % 0.7 % (0.0-1.0); EOS # 0.1 10^3/uL (0.0-0.5); HEMATOCRIT 45.7 % (36.0-47.0); HEMOGLOBIN 14.6 g/dl (12.0-15.5); LYMPH # 2.1 10^3/uL (1.5-5.0); LYMPH % 20.4 % (24.0-44.0); MEAN CORPUSCULAR HEMOGLOBIN 27.5 pg (27.0-33.0); MEAN CORPUSCULAR HGB CONC 31.9 g/dl (32.0-36.5); MEAN CORPUSCULAR VOLUME 86.1 fl (80.0-96.0); MONO # 0.5 10^3/uL (0.0-0.8); MONO % 4.5 % (2.0-8.0); NEUTROPHILS # 7.3 10^3/uL (1.5-8.5); NEUTROPHILS % 71.9 % (36.0-66.0); PLATELET COUNT, AUTOMATED 279 10^3/uL (150-450); RED BLOOD COUNT 5.31 10^6/uL (4.00-5.40); WHITE BLOOD COUNT 10.1 10^3/uL (4.0-10.0)
[2022-03-21] MEDS: COMBIVENT RESPIMAT 100-20MCG INHALER 4GM INH SCH ×2 (15:37→15:38)
[2022-03-21 15:50] LABS: CPK CREATINE PHOSPHOKINASE 25 U/L (26-192)
[2022-03-21 15:53] LABS: ALBUMIN 2.9 GM/DL (3.2-5.2); BILIRUBIN,DIRECT 0.1 MG/DL (0.0-0.2); BILIRUBIN,TOTAL 0.5 MG/DL (0.2-1.0); CALCIUM LEVEL 9.6 MG/DL (8.8-10.2); CREATININE FOR GFR 1.16 MG/DL (0.55-1.30); GLOMERULAR FILTRATION RATE 49.9 (>45); POTASSIUM SERUM 3.7 MEQ/L (3.5-5.1); THYROID STIMULATING HORMONE 1.1 uIU/ML (0.358-3.740)
[2022-03-21 16:12] LABS: ABG BASE EXCESS -0.6 (-2.0-2.0); ABG HCO3 23.4 MEQ/L (22.0-26.0); ABG O2 SATURATION 90.4 % (95.0-99.0); ABG PARTIAL PRESSURE O2 55.5 mmHg (75.0-100.0); ABG STANDARD HCO3 23.8 MEQ/L (22.0-26.0); ABG TOTAL CO2 24.5 MEQ/L (23.0-31.0); ABG pH (ARTERIAL) 7.419 UNITS (7.350-7.450)
[2022-03-21 18:32] LABS: CPK CREATINE PHOSPHOKINASE 32 U/L (26-192)
[2022-03-21] MEDS ORDERED: GLUCAGON INJ 1MG VIAL SC PRN (19:15)
[2022-03-21] MEDS ORDERED: GLUCOSE 4GM CHEW TABLET PO PRN (19:15)
[2022-03-21] MEDS ORDERED: DEXTROSE 50% 50 ML SYRINGE IV PRN (19:15)
[2022-03-21] MEDS ORDERED: LEVALBUTEROL 1.25 MG/0.5 ML CONCENTRATE NEB NEB PRN (19:15)
[2022-03-21] MEDS ORDERED: ALBU8.5H INH (19:45)
[2022-03-21] MEDS ORDERED: ONDA-83 PO (19:45)
[2022-03-21] MEDS ORDERED: PANT40TA29 PO (19:47)
[2022-03-21] MEDS ORDERED: ACET300T48 PO (19:47)
[2022-03-21] MEDS ORDERED: INCR1INH PO (19:48)
[2022-03-21] MEDS ORDERED: HOME MED LIST COMPLETE! XX SCH (19:50)
[2022-03-21] MEDS: methylPREDNISolone 40MG 1ML VIAL IV SCH (20:00)
[2022-03-21] MEDS: SYMBICORT 160/4.5MCG INHALER 6GM INH SCH (20:00)
[2022-03-21] MEDS ORDERED: FLUTICASONE PROP 0.05% NASAL SPRAY 16 GM (FLONASE) PRN (20:10)
[2022-03-21] MEDS ORDERED: MIRALAX *UNIT DOSE* 17GM PACKET PO PRN (20:10)
[2022-03-21] MEDS: IPRATROPIUM 0.5MG/ALBUTEROL 2.5MG INH SOL UD 3ML (DUONEB) NEB SCH (20:20)
[2022-03-21] MEDS: guaiFENesin ER 600 MG TAB PO SCH (21:00)
[2022-03-21 22:05] VITALS: BP 165/80
[2022-03-21] MEDS ORDERED: amLODIPine 5 MG TAB PO ONE (22:05)
[2022-03-21 22:21] VITALS: BP 165/80
[2022-03-22] VITALS (16 sets, daily range): BP systolic 101–148; BP diastolic 59–86; O2SAT 89–98
[2022-03-22] MEDS ORDERED: UNRESOLVED CLARIFICATION ENTRY XX SCH (00:01)
[2022-03-22] MEDS: IPRATROPIUM 0.5MG/ALBUTEROL 2.5MG INH SOL UD 3ML (DUONEB) NEB SCH ×4 (01:09→20:00)
[2022-03-22 05:43] LABS: HEMATOCRIT 43.7 % (36.0-47.0); HEMOGLOBIN 13.8 g/dl (12.0-15.5); MEAN CORPUSCULAR HEMOGLOBIN 27.4 pg (27.0-33.0); MEAN CORPUSCULAR HGB CONC 31.6 g/dl (32.0-36.5); MEAN CORPUSCULAR VOLUME 86.9 fl (80.0-96.0); PLATELET COUNT, AUTOMATED 279 10^3/uL (150-450); RED BLOOD COUNT 5.03 10^6/uL (4.00-5.40); WHITE BLOOD COUNT 13.2 10^3/uL (4.0-10.0)
[2022-03-22 06:40] LABS: BLOOD UREA NITROGEN 16 MG/DL (7-18); CALCIUM LEVEL 9.4 MG/DL (8.8-10.2); CARBON DIOXIDE LEVEL 24 MEQ/L (21-32); CHLORIDE LEVEL 104 MEQ/L (98-107); CREATININE FOR GFR 0.95 MG/DL (0.55-1.30); GLOMERULAR FILTRATION RATE > 60.0 (>45); GLUCOSE, FASTING 420 MG/DL (70-100); MAGNESIUM LEVEL 2.2 MG/DL (1.8-2.4); POTASSIUM SERUM 4.6 MEQ/L (3.5-5.1); SODIUM LEVEL 136 MEQ/L (136-145)
[2022-03-22] MEDS: INSULIN LISPRO (NovoLOG) PER UNIT SC SCH ×3 (06:53→18:28)
[2022-03-22] MEDS: SODIUM CHLORIDE HYPERTONIC 3% 15ML NEB SOL INH SCH ×3 (08:00→20:00)
[2022-03-22] MEDS: ONDANSETRON 4MG TAB PO PRN (08:00)
[2022-03-22] MEDS: SYMBICORT 160/4.5MCG INHALER 6GM INH SCH ×2 (08:15→20:41)
[2022-03-22] MEDS: TIOTROPIUM INHALER/CAPSULE (SPIRIVA) INH SCH (08:15)
[2022-03-22] MEDS ORDERED: FUROSEMIDE 40 MG TAB PO SCH (09:00)
[2022-03-22] MEDS: methylPREDNISolone 40MG 1ML VIAL IV SCH (09:16)
[2022-03-22] MEDS: ASPIRIN 81MG ENTERIC TABLET PO SCH (09:16)
[2022-03-22] MEDS: guaiFENesin ER 600 MG TAB PO SCH ×2 (09:17→20:12)
[2022-03-22] MEDS: ENOXAPARIN 40MG/0.4ML SYRINGE (J1650 PER 10MG) SC SCH (09:17)
[2022-03-22] MEDS: PANTOPRAZOLE 40MG TAB (PROTONIX) PO SCH (09:17)
[2022-03-22] MEDS: BENZONATATE 100MG CAPSULE PO SCH ×3 (12:06→20:12)
[2022-03-22] MEDS ORDERED: INSULIN LISPRO (NovoLOG) PER UNIT SC STA ×3 (15:11→18:37)
[2022-03-22] MEDS: ACETAMINOPH W/CODEINE #3 TAB UD PO PRN (16:06)
[2022-03-22] MEDS ORDERED: LevoFLOXacin IV 750 MG in IV 1 EA IV SCH (18:00)
[2022-03-22] MEDS ORDERED: HumuLIN R (REGULAR) INSULIN (NovoLIN R) **100U/ML** PER UNIT IV ONE (20:25)
[2022-03-22] MEDS ORDERED: LEVEMIR (INSULIN DETEMIR) 1 UNITS/0.01ML SC SCH (21:00)
[2022-03-23] VITALS (9 sets, daily range): BP systolic 109–142; BP diastolic 59–79; O2SAT 91–93
[2022-03-23] MEDS: SODIUM CHLORIDE HYPERTONIC 3% 15ML NEB SOL INH SCH ×4 (02:00→20:00)
[2022-03-23] MEDS: IPRATROPIUM 0.5MG/ALBUTEROL 2.5MG INH SOL UD 3ML (DUONEB) NEB SCH ×4 (02:00→20:00)
[2022-03-23 05:15] LABS: HEMATOCRIT 40.5 % (36.0-47.0); HEMOGLOBIN 12.7 g/dl (12.0-15.5); MEAN CORPUSCULAR HEMOGLOBIN 27.5 pg (27.0-33.0); MEAN CORPUSCULAR HGB CONC 31.4 g/dl (32.0-36.5); MEAN CORPUSCULAR VOLUME 87.7 fl (80.0-96.0); PLATELET COUNT, AUTOMATED 256 10^3/uL (150-450); RED BLOOD COUNT 4.62 10^6/uL (4.00-5.40); WHITE BLOOD COUNT 12.3 10^3/uL (4.0-10.0)
[2022-03-23 05:48] LABS: CALCIUM LEVEL 9.1 MG/DL (8.8-10.2); CREATININE FOR GFR 1.02 MG/DL (0.55-1.30); GLOMERULAR FILTRATION RATE 57.9 (>45); MAGNESIUM LEVEL 2.3 MG/DL (1.8-2.4); POTASSIUM SERUM 4.1 MEQ/L (3.5-5.1)
[2022-03-23 06:15] LABS: HEMOGLOBIN A1c 13.9 %
[2022-03-23] MEDS: INSULIN LISPRO (NovoLOG) PER UNIT SC SCH ×4 (06:47→22:20)
[2022-03-23] MEDS: TIOTROPIUM INHALER/CAPSULE (SPIRIVA) INH SCH (07:34)
[2022-03-23] MEDS: SYMBICORT 160/4.5MCG INHALER 6GM INH SCH ×2 (07:34→20:31)
[2022-03-23] MEDS ORDERED: LEVEMIR (INSULIN DETEMIR) 1 UNITS/0.01ML SC SCH (09:00)
[2022-03-23] MEDS: BENZONATATE 100MG CAPSULE PO SCH ×3 (09:28→22:19)
[2022-03-23] MEDS: ASPIRIN 81MG ENTERIC TABLET PO SCH (09:28)
[2022-03-23] MEDS: PANTOPRAZOLE 40MG TAB (PROTONIX) PO SCH (09:28)
[2022-03-23] MEDS: guaiFENesin ER 600 MG TAB PO SCH ×2 (09:28→22:19)
[2022-03-23] MEDS: ENOXAPARIN 40MG/0.4ML SYRINGE (J1650 PER 10MG) SC SCH (09:30)
[2022-03-23] MEDS: predniSONE 20 MG TAB PO SCH (09:32)
[2022-03-23] MEDS: LEVEMIR (INSULIN DETEMIR) 1 UNITS/0.01ML SC SCH ×2 (09:43→22:20)
[2022-03-23] MEDS ORDERED: HumuLIN R (REGULAR) INSULIN (NovoLIN R) **100U/ML** PER UNIT SC ONE (17:30)
[2022-03-24] MEDS: SODIUM CHLORIDE HYPERTONIC 3% 15ML NEB SOL INH SCH ×4 (02:44→21:22)
[2022-03-24] MEDS: IPRATROPIUM 0.5MG/ALBUTEROL 2.5MG INH SOL UD 3ML (DUONEB) NEB SCH ×4 (02:44→21:22)
[2022-03-24 04:03] VITALS: BP 128/74
[2022-03-24 06:47] LABS: HEMATOCRIT 40.5 % (36.0-47.0); HEMOGLOBIN 12.8 g/dl (12.0-15.5); MEAN CORPUSCULAR HEMOGLOBIN 27.8 pg (27.0-33.0); MEAN CORPUSCULAR HGB CONC 31.6 g/dl (32.0-36.5); PLATELET COUNT, AUTOMATED 228 10^3/uL (150-450)
[2022-03-24] MEDS: SYMBICORT 160/4.5MCG INHALER 6GM INH SCH ×2 (07:19→21:18)
[2022-03-24] MEDS: TIOTROPIUM INHALER/CAPSULE (SPIRIVA) INH SCH (07:19)
[2022-03-24 07:29] LABS: BLOOD UREA NITROGEN 22 MG/DL (7-18); CALCIUM LEVEL 9.5 MG/DL (8.8-10.2); CARBON DIOXIDE LEVEL 25 MEQ/L (21-32); CHLORIDE LEVEL 109 MEQ/L (98-107); CREATININE FOR GFR 0.88 MG/DL (0.55-1.30); GLOMERULAR FILTRATION RATE > 60.0 (>45); GLUCOSE, FASTING 316 MG/DL (70-100); MAGNESIUM LEVEL 2.5 MG/DL (1.8-2.4); POTASSIUM SERUM 4.2 MEQ/L (3.5-5.1); SODIUM LEVEL 140 MEQ/L (136-145)
[2022-03-24 07:36] VITALS: BP 144/85
[2022-03-24] MEDS: PANTOPRAZOLE 40MG TAB (PROTONIX) PO SCH (08:28)
[2022-03-24] MEDS: guaiFENesin ER 600 MG TAB PO SCH ×2 (08:28→21:30)
[2022-03-24] MEDS: INSULIN LISPRO (NovoLOG) PER UNIT SC SCH ×4 (08:28→21:30)
[2022-03-24] MEDS: ENOXAPARIN 40MG/0.4ML SYRINGE (J1650 PER 10MG) SC SCH (08:28)
[2022-03-24] MEDS: predniSONE 20 MG TAB PO SCH (08:29)
[2022-03-24] MEDS: ASPIRIN 81MG ENTERIC TABLET PO SCH (08:29)
[2022-03-24] MEDS: BENZONATATE 100MG CAPSULE PO SCH ×3 (08:29→21:30)
[2022-03-24] MEDS: ACETAMINOPH W/CODEINE #3 TAB UD PO PRN (08:38)
[2022-03-24] MEDS: ONDANSETRON 4MG TAB PO PRN (08:40)
[2022-03-24] MEDS ORDERED: LEVEMIR (INSULIN DETEMIR) 1 UNITS/0.01ML SC SCH ×2 (09:00→21:00)
[2022-03-24 16:14] VITALS: BP 144/79
[2022-03-24] MEDS ORDERED: LANTINJ4 SC (17:09)
[2022-03-24 22:00] VITALS: BP 121/64
[2022-03-25] MEDS: IPRATROPIUM 0.5MG/ALBUTEROL 2.5MG INH SOL UD 3ML (DUONEB) NEB SCH ×2 (02:00→08:17)
[2022-03-25] MEDS: SODIUM CHLORIDE HYPERTONIC 3% 15ML NEB SOL INH SCH ×2 (02:00→08:17)
[2022-03-25] MEDS ORDERED: ONDANSETRON 4MG TAB PO PRN (02:05)
[2022-03-25 05:49] VITALS: BP 120/67
[2022-03-25 06:19] LABS: HEMATOCRIT 40.7 % (36.0-47.0); HEMOGLOBIN 12.4 g/dl (12.0-15.5); MEAN CORPUSCULAR HEMOGLOBIN 27.3 pg (27.0-33.0); MEAN CORPUSCULAR HGB CONC 30.5 g/dl (32.0-36.5); MEAN CORPUSCULAR VOLUME 89.6 fl (80.0-96.0); PLATELET COUNT, AUTOMATED 211 10^3/uL (150-450); RED BLOOD COUNT 4.54 10^6/uL (4.00-5.40); WHITE BLOOD COUNT 10.9 10^3/uL (4.0-10.0)
[2022-03-25 06:40] LABS: BLOOD UREA NITROGEN 32 MG/DL (7-18); CALCIUM LEVEL 9.5 MG/DL (8.8-10.2); CARBON DIOXIDE LEVEL 31 MEQ/L (21-32); CHLORIDE LEVEL 107 MEQ/L (98-107); CREATININE FOR GFR 0.91 MG/DL (0.55-1.30); GLOMERULAR FILTRATION RATE > 60.0 (>45); GLUCOSE, FASTING 225 MG/DL (70-100); MAGNESIUM LEVEL 2.3 MG/DL (1.8-2.4); SODIUM LEVEL 142 MEQ/L (136-145)
[2022-03-25] MEDS ORDERED: LANTINJ4 SC (07:53)
[2022-03-25] MEDS: PANTOPRAZOLE 40MG TAB (PROTONIX) PO SCH (08:06)
[2022-03-25] MEDS: ASPIRIN 81MG ENTERIC TABLET PO SCH (08:06)
[2022-03-25] MEDS: ENOXAPARIN 40MG/0.4ML SYRINGE (J1650 PER 10MG) SC SCH (08:06)
[2022-03-25] MEDS: guaiFENesin ER 600 MG TAB PO SCH (08:06)
[2022-03-25] MEDS: BENZONATATE 100MG CAPSULE PO SCH (08:06)
[2022-03-25] MEDS: INSULIN LISPRO (NovoLOG) PER UNIT SC SCH ×2 (08:08→12:15)
[2022-03-25] MEDS: SYMBICORT 160/4.5MCG INHALER 6GM INH SCH (08:17)
[2022-03-25] MEDS: TIOTROPIUM INHALER/CAPSULE (SPIRIVA) INH SCH (08:17)
[2022-03-25] MEDS ORDERED: LEVEMIR (INSULIN DETEMIR) 1 UNITS/0.01ML SC SCH (09:00)
[2022-03-25] MEDS ORDERED: predniSONE 20 MG TAB PO SCH (09:00)
[2022-03-25] MEDS ORDERED: MUCI600T31 PO (10:22)
[2022-03-25] MEDS ORDERED: CEFU50TA PO (10:24)
[2022-03-25] MEDS ORDERED: PRED20TA PO (10:27)
[2022-03-25] MEDS ORDERED: MUCI1LIQ3 PO (10:50)
[2022-03-25 14:00] VITALS: BP 130/68
== END 2022-03-25 15:17 | disposition home health service (06) | DRG 191 ==
LOC: M ED 14:16 → EDBD 14:16 → M ED INP 18:44 → M PCU 22:20 → M MSPAV 03-22 19:00 → M PCU 03-22 19:11 → M MSPAV 03-24 16:04
PROVIDERS: ADMIT Internal Medicine; ATTEND Internal Medicine
DX: J44.1 Chronic obstructive pulmonary disease with (acute) exacerbation (principal); E87.20 Acidosis, unspecified; I50.32 Chronic diastolic (congestive) heart failure; E11.65 Type 2 diabetes mellitus with hyperglycemia; I11.0 Hypertensive heart disease with heart failure; K21.9 Gastro-esophageal reflux disease without esophagitis; G47.33 Obstructive sleep apnea (adult) (pediatric); I27.20 Pulmonary hypertension, unspecified; K59.00 Constipation, unspecified; Z88.0 Allergy status to penicillin; Z88.2 Allergy status to sulfonamides; Z88.8 Allergy status to other drugs, medicaments and biological substances; Z79.82 Long term (current) 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; Z79.899 Other long term (current) drug therapy; Z79.4 Long term (current) use of insulin; Z98.42 Cataract extraction status, left eye; Z99.81 Dependence on supplemental oxygen; Z79.52 Long term (current) use of systemic steroids; Z77.22 Contact with and (suspected) exposure to environmental tobacco smoke (acute) (chronic)

== ENCOUNTER 2022-07-09 21:56 | Inpatient (IN) | payer MEDICARE, MEDICAID ==
[~2022-07-09] VITALS: Ht 170.2 cm; Wt 110.8 kg
[~2022-07-09 21:56] MED LIST changes: +ACET300T48 PO; +ALBU8.5H INH; +CEFU50TA PO; -DOXY-350 PO; +DOXY-444 PO; +INCR1INH PO; +LANTINJ4 SC; +MUCI1LIQ3 PO; +ONDA-83 PO
[2022-07-09 22:51] LABS: BASO # 0.1 10^3/uL (0.0-0.2); BASO % 0.7 % (0.0-1.0); EOS # 0.1 10^3/uL (0.0-0.5); EOS % 0.9 % (0.0-3.0); HEMATOCRIT 46.6 % (36.0-47.0); HEMOGLOBIN 14.6 g/dl (12.0-15.5); LYMPH # 1.8 10^3/uL (1.5-5.0); LYMPH % 18.2 % (24.0-44.0); MEAN CORPUSCULAR HEMOGLOBIN 27.2 pg (27.0-33.0); MEAN CORPUSCULAR HGB CONC 31.3 g/dl (32.0-36.5); MEAN CORPUSCULAR VOLUME 86.9 fl (80.0-96.0); MONO # 0.5 10^3/uL (0.0-0.8); MONO % 5.1 % (2.0-8.0); NEUTROPHILS # 7.3 10^3/uL (1.5-8.5); NEUTROPHILS % 74.3 % (36.0-66.0); PLATELET COUNT, AUTOMATED 264 10^3/uL (150-450); RED BLOOD COUNT 5.36 10^6/uL (4.00-5.40); WHITE BLOOD COUNT 9.9 10^3/uL (4.0-10.0)
[2022-07-09] MEDS ORDERED: IPRATROPIUM 0.5MG/ALBUTEROL 2.5MG INH SOL UD 3ML (DUONEB) NEB ONE (23:00)
[2022-07-09 23:04] LABS: ALBUMIN 3.3 G/DL (3.2-5.2); ALKALINE PHOSPHATASE 91 U/L (46-116); ALT/SGPT 21 U/L (7.0-40); AST/SGOT 37 U/L (<34); BILIRUBIN,DIRECT < 0.1 MG/DL (<0.4); BILIRUBIN,TOTAL 0.5 MG/DL (0.3-1.2); BLOOD UREA NITROGEN 14 MG/DL (9-23); CALCIUM LEVEL 9.5 MG/DL (8.3-10.6); CARBON DIOXIDE LEVEL 28 MMOL/L (20-31); CHLORIDE LEVEL 106 MMOL/L (98-107); CREATININE FOR GFR 0.93 MG/DL (0.55-1.30); GLOMERULAR FILTRATION RATE > 60.0 (>45); GLUCOSE, FASTING 171 MG/DL (74-106); POTASSIUM SERUM 5.5 MMOL/L (3.5-5.1); SODIUM LEVEL 139 MMOL/L (136-145); THYROID STIMULATING HORMONE 1.176 uIU/ML (0.55-4.78); TOTAL PROTEIN 6.9 G/DL (5.7-8.2)
[2022-07-09 23:06] LABS: INR 0.93; PROTHROMBIN TIME 12.7 SECONDS (12.5-14.5)
[2022-07-09 23:58] LABS: ABG BASE EXCESS -1.6 (-2.0-2.0); ABG HCO3 23.2 MEQ/L (22.0-26.0); ABG PARTIAL PRESSURE CO2 39.9 mmHg (35.0-45.0); ABG PARTIAL PRESSURE O2 183.3 mmHg (75.0-100.0); ABG STANDARD HCO3 23.2 MEQ/L (22.0-26.0); ABG TOTAL CO2 24.5 MEQ/L (23.0-31.0); ABG pH (ARTERIAL) 7.383 UNITS (7.350-7.450)
[2022-07-10] VITALS (7 sets, daily range): BP systolic 119–134; BP diastolic 71–81; O2SAT 86–89
[2022-07-10] MEDS ORDERED: CYCL-707 PO (00:30)
[2022-07-10] MEDS ORDERED: ATOR40TA75 PO (00:30)
[2022-07-10] MEDS ORDERED: MUCI600T31 PO (00:30)
[2022-07-10] MEDS ORDERED: LANTINJ4 SC (00:30)
[2022-07-10] MEDS ORDERED: NICO1DIS12 TD (00:32)
[2022-07-10] MEDS ORDERED: PRED5TA PO (00:34)
[2022-07-10] MEDS ORDERED: HOME MED LIST COMPLETE! XX SCH (00:40)
[2022-07-10] MEDS: DOXYCYCLINE HYCLATE 100MG TABLET PO SCH ×3 (01:35→21:34)
[2022-07-10] MEDS ORDERED: ALBUTEROL 90 MCG/ACT 8GM HFA INHALER INH PRN (01:35)
[2022-07-10] MEDS ORDERED: GLUCAGON INJ 1MG VIAL SC PRN (01:35)
[2022-07-10] MEDS ORDERED: GLUCOSE 4GM CHEW TABLET PO PRN (01:35)
[2022-07-10] MEDS ORDERED: NS 1,000 ML IV SCH (01:35)
[2022-07-10] MEDS ORDERED: DEXTROSE 50% 50ML SYRINGE IV PRN (01:35)
[2022-07-10] MEDS: LEVEMIR (INSULIN DETEMIR) 1 UNITS/0.01ML SC SCH ×2 (01:35→08:39)
[2022-07-10] MEDS ORDERED: ACETAMINOPH W/CODEINE #3 TAB UD PO PRN (01:35)
[2022-07-10] MEDS ORDERED: ACETAMINOPHEN TAB 650MG DOSE (2X325MG) PO PRN (01:35)
[2022-07-10] MEDS: IPRATROPIUM 0.5MG/ALBUTEROL 2.5MG INH SOL UD 3ML (DUONEB) INH SCH ×4 (02:20→20:14)
[2022-07-10] MEDS: HEPARIN SOD (PORCINE) 5000UNITS/ML 1ML VIAL/SYRINGE SC SCH ×3 (05:19→21:37)
[2022-07-10] MEDS: methylPREDNISolone 40MG 1ML VIAL IV SCH ×4 (05:19→23:50)
[2022-07-10] MEDS: SYMBICORT 160/4.5MCG INHALER 6GM INH SCH ×2 (07:46→20:15)
[2022-07-10 08:25] LABS: BLOOD UREA NITROGEN 12 MG/DL (9-23); CALCIUM LEVEL 9.6 MG/DL (8.3-10.6); CARBON DIOXIDE LEVEL 26 MMOL/L (20-31); CHLORIDE LEVEL 108 MMOL/L (98-107); CREATININE FOR GFR 0.74 MG/DL (0.55-1.30); GLOMERULAR FILTRATION RATE > 60.0 (>45); GLUCOSE, FASTING 237 MG/DL (74-106); SODIUM LEVEL 141 MMOL/L (136-145)
[2022-07-10] MEDS ORDERED: ONDANSETRON 4MG TAB PO ONE (08:30)
[2022-07-10] MEDS: CYCLOBENZAPRINE 10MG TABLET PO SCH ×2 (08:39→21:34)
[2022-07-10] MEDS: PANTOPRAZOLE 40MG TAB (PROTONIX) PO SCH (08:39)
[2022-07-10] MEDS: ASPIRIN 81MG ENTERIC TABLET PO SCH (08:39)
[2022-07-10] MEDS: ATORVASTATIN 20 MG TAB PO SCH (08:39)
[2022-07-10] MEDS: INSULIN LISPRO (NovoLOG) PER UNIT SC SCH ×4 (08:40→21:37)
[2022-07-10] MEDS: MIRALAX *UNIT DOSE* 17GM PACKET PO PRN ×2 (10:15→17:44)
[2022-07-10] MEDS ORDERED: LEVEMIR (INSULIN DETEMIR) 1 UNITS/0.01ML SC SCH (21:00)
[2022-07-10] MEDS: DOCUSATE SODIUM 100MG CAPSULE PO PRN (21:34)
[2022-07-10] MEDS: NICOTINE 21MG/24HR 1 EA TRANSDERMAL TD PRN (21:35)
[2022-07-11 01:37] LABS: APPEARANCE, URINE MANUAL CLEAR (CLEAR); COLOR, URINE MANUAL YELLOW (YELLOW); SPECIFIC GRAVITY,URINE MANUAL 1.025 (1.002-1.035)
[2022-07-11 01:38] LABS: BILIRUBIN, URINE MANUAL NEGATIVE (NEGATIVE); GLUCOSE, URINE (UA) MANUAL 4+(1000 MG/DL) mg/dL (NEGATIVE); KETONE, URINE MANUAL NEGATIVE (NEGATIVE); NITRITE, URINE MANUAL POSITIVE (NEGATIVE); PROTEIN, URINE MANUAL NEGATIVE (NEGATIVE); UROBILINOGEN, URINE MANUAL NORMAL (NORMAL)
[2022-07-11 01:39] LABS: BLOOD URINE MANUAL NEGATIVE (NEGATIVE); LEUKOCYTE ESTERASE, URINE MAN TRACE (NEGATIVE)
[2022-07-11 01:44] LABS: BACTERIA, URINE LARGE AMOUNT; HYALINE CAST, URINE NONE SEEN /lpf (0-1); RBC, URINE 0-1 /hpf (0-3); SQUAMOUS EPITHELIAL CELL URINE SMALL AMOUNT /hpf (SMALL AMT)
[2022-07-11] MEDS: IPRATROPIUM 0.5MG/ALBUTEROL 2.5MG INH SOL UD 3ML (DUONEB) INH SCH ×4 (02:02→19:50)
[2022-07-11 05:37] LABS: BASO % 0.2 % (0.0-1.0); HEMATOCRIT 44.5 % (36.0-47.0); HEMOGLOBIN 13.7 g/dl (12.0-15.5); LYMPH # 0.8 10^3/uL (1.5-5.0); LYMPH % 6.3 % (24.0-44.0); MEAN CORPUSCULAR HGB CONC 30.8 g/dl (32.0-36.5); MEAN CORPUSCULAR VOLUME 87.6 fl (80.0-96.0); MONO # 0.4 10^3/uL (0.0-0.8); MONO % 3.2 % (2.0-8.0); NEUTROPHILS # 11.9 10^3/uL (1.5-8.5); NEUTROPHILS % 89.3 % (36.0-66.0); PLATELET COUNT, AUTOMATED 264 10^3/uL (150-450); RED BLOOD COUNT 5.08 10^6/uL (4.00-5.40); WHITE BLOOD COUNT 13.3 10^3/uL (4.0-10.0)
[2022-07-11 05:55] LABS: BLOOD UREA NITROGEN 25 MG/DL (9-23); CALCIUM LEVEL 10.3 MG/DL (8.3-10.6); CARBON DIOXIDE LEVEL 24 MMOL/L (20-31); CHLORIDE LEVEL 108 MMOL/L (98-107); CREATININE FOR GFR 0.91 MG/DL (0.55-1.30); GLOMERULAR FILTRATION RATE > 60.0 (>45); GLUCOSE, FASTING 330 MG/DL (74-106); POTASSIUM SERUM 5.1 MMOL/L (3.5-5.1); SODIUM LEVEL 142 MMOL/L (136-145)
[2022-07-11 06:00] VITALS: BP 113/57
[2022-07-11] MEDS: methylPREDNISolone 40MG 1ML VIAL IV SCH (06:53)
[2022-07-11] MEDS: HEPARIN SOD (PORCINE) 5000UNITS/ML 1ML VIAL/SYRINGE SC SCH (06:53)
[2022-07-11] MEDS: SYMBICORT 160/4.5MCG INHALER 6GM INH SCH ×2 (07:37→19:50)
[2022-07-11] MEDS: ASPIRIN 81MG ENTERIC TABLET PO SCH (08:22)
[2022-07-11] MEDS: CYCLOBENZAPRINE 10MG TABLET PO SCH ×2 (08:22→20:27)
[2022-07-11] MEDS: MIRALAX *UNIT DOSE* 17GM PACKET PO PRN ×2 (08:22→20:26)
[2022-07-11] MEDS: ATORVASTATIN 20 MG TAB PO SCH (08:22)
[2022-07-11] MEDS: ONDANSETRON 4MG TAB PO PRN (08:23)
[2022-07-11] MEDS: DOXYCYCLINE HYCLATE 100MG TABLET PO SCH ×2 (08:23→20:27)
[2022-07-11] MEDS: LEVEMIR (INSULIN DETEMIR) 1 UNITS/0.01ML SC SCH ×2 (08:23→20:28)
[2022-07-11] MEDS: PANTOPRAZOLE 40MG TAB (PROTONIX) PO SCH (08:23)
[2022-07-11] MEDS: DOCUSATE SODIUM 100MG CAPSULE PO PRN ×2 (08:23→20:27)
[2022-07-11] MEDS: INSULIN LISPRO (NovoLOG) PER UNIT SC SCH ×4 (08:24→20:29)
[2022-07-11] MEDS ORDERED: FLUTICASONE PROP 0.05% NASAL SPRAY 16 GM (FLONASE) PRN (10:45)
[2022-07-11 10:49] VITALS: O2SAT 96
[2022-07-11] MEDS: FUROSEMIDE 40 MG TAB PO SCH (11:41)
[2022-07-11] MEDS: predniSONE 20 MG TAB PO SCH (11:41)
[2022-07-11] MEDS: CEFDINIR 300 MG CAP (OMNICEF) PO SCH ×2 (11:41→20:27)
[2022-07-11 14:00] VITALS: BP 137/74
[2022-07-11] MEDS: TIOTROPIUM INHALER/CAPSULE (SPIRIVA) INH SCH (14:03)
[2022-07-11] MEDS ORDERED: RIVAROXABAN 10MG TAB (XARELTO) PO SCH (18:00)
[2022-07-11] MEDS: NICOTINE 21MG/24HR 1 EA TRANSDERMAL TD PRN (20:27)
[2022-07-12] MEDS: IPRATROPIUM 0.5MG/ALBUTEROL 2.5MG INH SOL UD 3ML (DUONEB) INH SCH ×3 (00:56→15:03)
[2022-07-12 06:00] VITALS: BP 143/80
[2022-07-12 06:29] LABS: BASO % 0.2 % (0.0-1.0); HEMATOCRIT 44.3 % (36.0-47.0); HEMOGLOBIN 13.5 g/dl (12.0-15.5); LYMPH # 0.9 10^3/uL (1.5-5.0); LYMPH % 6.6 % (24.0-44.0); MEAN CORPUSCULAR HEMOGLOBIN 26.8 pg (27.0-33.0); MEAN CORPUSCULAR HGB CONC 30.5 g/dl (32.0-36.5); MEAN CORPUSCULAR VOLUME 87.9 fl (80.0-96.0); MONO # 0.5 10^3/uL (0.0-0.8); MONO % 3.8 % (2.0-8.0); NEUTROPHILS # 12.4 10^3/uL (1.5-8.5); NEUTROPHILS % 88.2 % (36.0-66.0); PLATELET COUNT, AUTOMATED 267 10^3/uL (150-450); RED BLOOD COUNT 5.04 10^6/uL (4.00-5.40)
[2022-07-12] MEDS: SYMBICORT 160/4.5MCG INHALER 6GM INH SCH (07:18)
[2022-07-12] MEDS: TIOTROPIUM INHALER/CAPSULE (SPIRIVA) INH SCH (07:18)
[2022-07-12 07:42] LABS: BLOOD UREA NITROGEN 30 MG/DL (9-23); CALCIUM LEVEL 9.7 MG/DL (8.3-10.6); CARBON DIOXIDE LEVEL 28 MMOL/L (20-31); CHLORIDE LEVEL 106 MMOL/L (98-107); CREATININE FOR GFR 0.91 MG/DL (0.55-1.30); GLOMERULAR FILTRATION RATE > 60.0 (>45); GLUCOSE, FASTING 311 MG/DL (74-106); POTASSIUM SERUM 4.4 MMOL/L (3.5-5.1); SODIUM LEVEL 140 MMOL/L (136-145)
[2022-07-12] MEDS: MIRALAX *UNIT DOSE* 17GM PACKET PO PRN (07:50)
[2022-07-12] MEDS: INSULIN LISPRO (NovoLOG) PER UNIT SC SCH ×2 (07:50→12:35)
[2022-07-12] MEDS: FUROSEMIDE 40 MG TAB PO SCH (07:51)
[2022-07-12] MEDS: PANTOPRAZOLE 40MG TAB (PROTONIX) PO SCH (07:51)
[2022-07-12] MEDS: CEFDINIR 300 MG CAP (OMNICEF) PO SCH (07:51)
[2022-07-12] MEDS: CYCLOBENZAPRINE 10MG TABLET PO SCH (07:51)
[2022-07-12] MEDS: predniSONE 20 MG TAB PO SCH (07:51)
[2022-07-12] MEDS: DOCUSATE SODIUM 100MG CAPSULE PO PRN (07:51)
[2022-07-12] MEDS: ATORVASTATIN 20 MG TAB PO SCH (07:51)
[2022-07-12] MEDS: ASPIRIN 81MG ENTERIC TABLET PO SCH (07:51)
[2022-07-12] MEDS: DOXYCYCLINE HYCLATE 100MG TABLET PO SCH (07:51)
[2022-07-12] MEDS: ONDANSETRON 4MG TAB PO PRN (07:52)
[2022-07-12] MEDS ORDERED: DOXY100T PO (08:57)
[2022-07-12] MEDS ORDERED: PRED20TA PO (08:57)
[2022-07-12] MEDS ORDERED: CEFD300CAP PO (08:57)
[2022-07-12] MEDS ORDERED: LEVEMIR (INSULIN DETEMIR) 1 UNITS/0.01ML SC SCH (09:00)
[2022-07-12 14:00] VITALS: BP 154/98
== END 2022-07-12 16:52 | disposition home health service (06) | DRG 191 ==
LOC: M ED 21:56 → EDBD 21:56 → M ED INP 07-10 01:31 → M MSPAV 07-10 04:05
PROVIDERS: ADMIT Internal Medicine; ATTEND Student in an Organized Health Care Education/Training Program
DX: J44.1 Chronic obstructive pulmonary disease with (acute) exacerbation (principal); N39.0 Urinary tract infection, site not specified; I50.32 Chronic diastolic (congestive) heart failure; J96.11 Chronic respiratory failure with hypoxia; B97.29 Other coronavirus as the cause of diseases classified elsewhere; E11.51 Type 2 diabetes mellitus with diabetic peripheral angiopathy without gangrene; K21.9 Gastro-esophageal reflux disease without esophagitis; I11.0 Hypertensive heart disease with heart failure; G47.33 Obstructive sleep apnea (adult) (pediatric); I27.20 Pulmonary hypertension, unspecified; M51.36 Other intervertebral disc degeneration, lumbar region; E78.5 Hyperlipidemia, unspecified; K44.9 Diaphragmatic hernia without obstruction or gangrene; Z79.82 Long term (current) 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; Z79.4 Long term (current) use of insulin; Z79.52 Long term (current) use of systemic steroids; Z79.899 Other long term (current) drug therapy; Z88.0 Allergy status to penicillin; Z88.1 Allergy status to other antibiotic agents; Z88.2 Allergy status to sulfonamides; Z88.8 Allergy status to other drugs, medicaments and biological substances; Z20.822 Contact with and (suspected) exposure to COVID-19; Z99.81 Dependence on supplemental oxygen; Z87.891 Personal history of nicotine dependence; Z90.49 Acquired absence of other specified parts of digestive tract; Z79.891 Long term (current) use of opiate analgesic; I73.9 Peripheral vascular disease, unspecified

== ENCOUNTER 2022-09-16 02:09 | Emergency (ER) | payer MEDICARE, MEDICAID ==
[~2022-09-16 02:09] MED LIST changes: +ATOR40TA75 PO; +CYCL-707 PO; +DOXY100T PO; +NICO1DIS12 TD; -OLOP5DRO16 OU; +OLOP5DRO17 OU
[2022-09-16] MEDS ORDERED: COMBIVENT RESPIMAT 100-20MCG INHALER 4GM INH SCH (02:55)
[2022-09-16] MEDS ORDERED: LORazepam 2 MG/ML 1ML VIAL IV ONE (03:00)
[2022-09-16] MEDS: IPRATROPIUM 0.5MG/ALBUTEROL 2.5MG INH SOL UD 3ML (DUONEB) NEB SCH ×3 (03:09→03:23)
[2022-09-16 03:26] LABS: BASO # 0.1 10^3/uL (0.0-0.2); BASO % 0.6 % (0.0-1.0); EOS # 0.2 10^3/uL (0.0-0.5); EOS % 1.6 % (0.0-3.0); HEMATOCRIT 45.2 % (36.0-47.0); HEMOGLOBIN 14.4 g/dl (12.0-15.5); LYMPH # 3.6 10^3/uL (1.5-5.0); LYMPH % 25.6 % (24.0-44.0); MEAN CORPUSCULAR HEMOGLOBIN 27.2 pg (27.0-33.0); MEAN CORPUSCULAR HGB CONC 31.9 g/dl (32.0-36.5); MEAN CORPUSCULAR VOLUME 85.4 fl (80.0-96.0); MONO # 0.7 10^3/uL (0.0-0.8); NEUTROPHILS # 9.1 10^3/uL (1.5-8.5); NEUTROPHILS % 65.8 % (36.0-66.0); PLATELET COUNT, AUTOMATED 271 10^3/uL (150-450); RED BLOOD COUNT 5.29 10^6/uL (4.00-5.40); WHITE BLOOD COUNT 13.9 10^3/uL (4.0-10.0)
[2022-09-16 03:27] LABS: ABG HCO3 23.1 MEQ/L (22.0-26.0); ABG PARTIAL PRESSURE CO2 45.2 mmHg (35.0-45.0); ABG PARTIAL PRESSURE O2 145.1 mmHg (75.0-100.0); ABG TOTAL CO2 24.5 MEQ/L (23.0-31.0); ABG pH (ARTERIAL) 7.327 UNITS (7.350-7.450)
[2022-09-16 03:50] LABS: BLOOD UREA NITROGEN 23 MG/DL (9-23); CALCIUM LEVEL 9.5 MG/DL (8.3-10.6); CARBON DIOXIDE LEVEL 28 MMOL/L (20-31); CHLORIDE LEVEL 109 MMOL/L (98-107); CREATININE FOR GFR 0.88 MG/DL (0.55-1.30); GLOMERULAR FILTRATION RATE > 60.0 (>45); GLUCOSE, FASTING 172 MG/DL (74-106); POTASSIUM SERUM 4.1 MMOL/L (3.5-5.1); SODIUM LEVEL 143 MMOL/L (136-145)
[2022-09-16 04:46] VITALS: BP 147/80
== END 2022-09-16 05:46 | disposition home or self-care (01) ==
LOC: EDBD 02:09 → M ED 02:09
DX: F43.0 Acute stress reaction (principal); J44.1 Chronic obstructive pulmonary disease with (acute) exacerbation; E11.9 Type 2 diabetes mellitus without complications; K21.9 Gastro-esophageal reflux disease without esophagitis; G47.33 Obstructive sleep apnea (adult) (pediatric); I10 Essential (primary) hypertension; Z88.0 Allergy status to penicillin; Z88.2 Allergy status to sulfonamides; Z88.8 Allergy status to other drugs, medicaments and biological substances; Z79.52 Long term (current) use of systemic steroids; Z79.82 Long term (current) 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; Z79.4 Long term (current) use of insulin; Z79.811 Long term (current) use of aromatase inhibitors; Z79.899 Other long term (current) drug therapy
CPT/HCPCS: 36600; 71045; 80048; 82803; 83605; 85025; 94640; 96374; 99284; J1100; J2060

== ENCOUNTER 2022-09-28 17:29 | Emergency (ER) | payer MEDICARE, MEDICAID ==
[~2022-09-28] VITALS: Ht 170.2 cm; Wt 102.7 kg
[2022-09-28 18:20] LABS: BASO # 0.1 10^3/uL (0.0-0.2); BASO % 0.5 % (0.0-1.0); EOS # 0.2 10^3/uL (0.0-0.5); EOS % 0.8 % (0.0-3.0); HEMOGLOBIN 15.2 g/dl (12.0-15.5); LYMPH # 2.6 10^3/uL (1.5-5.0); LYMPH % 13.8 % (24.0-44.0); MEAN CORPUSCULAR HEMOGLOBIN 27.1 pg (27.0-33.0); MEAN CORPUSCULAR HGB CONC 31.7 g/dl (32.0-36.5); MEAN CORPUSCULAR VOLUME 85.7 fl (80.0-96.0); MONO # 0.6 10^3/uL (0.0-0.8); MONO % 3.1 % (2.0-8.0); NEUTROPHILS # 15.1 10^3/uL (1.5-8.5); NEUTROPHILS % 80.5 % (36.0-66.0); PLATELET COUNT, AUTOMATED 244 10^3/uL (150-450); WHITE BLOOD COUNT 18.8 10^3/uL (4.0-10.0)
[2022-09-28 18:50] LABS: ALBUMIN 3.7 G/DL (3.2-5.2); BILIRUBIN,DIRECT 0.2 MG/DL (<0.4); BILIRUBIN,TOTAL 0.6 MG/DL (0.3-1.2); CALCIUM LEVEL 9.8 MG/DL (8.3-10.6); CREATININE FOR GFR 1.01 MG/DL (0.55-1.30); GLOMERULAR FILTRATION RATE 58.6 (>45); POTASSIUM SERUM 4.1 MMOL/L (3.5-5.1); THYROID STIMULATING HORMONE 2.005 uIU/ML (0.55-4.78); THYROXINE (T4) 11.5 UG/DL (4.5-10.9); TOTAL PROTEIN 6.5 G/DL (5.7-8.2)
[2022-09-28 19:30] VITALS: O2SAT 93
[2022-09-28 20:15] VITALS: BP 151/70
== END 2022-09-28 20:29 | disposition home or self-care (01) ==
LOC: EDBD 17:29 → M ED 17:29
DX: J44.1 Chronic obstructive pulmonary disease with (acute) exacerbation (principal); I49.1 Atrial premature depolarization; E11.9 Type 2 diabetes mellitus without complications; F17.200 Nicotine dependence, unspecified, uncomplicated; Z87.442 Personal history of urinary calculi; Z86.79 Personal history of other diseases of the circulatory system; Z88.0 Allergy status to penicillin; Z88.1 Allergy status to other antibiotic agents; Z88.2 Allergy status to sulfonamides; Z88.8 Allergy status to other drugs, medicaments and biological substances; Z79.52 Long term (current) use of systemic steroids; Z79.02 Long term (current) use of antithrombotics/antiplatelets; Z79.4 Long term (current) use of insulin; Z79.899 Other long term (current) drug therapy

== ENCOUNTER 2023-01-11 16:38 | Inpatient (IN) | payer MEDICARE, MEDICAID ==
[~2023-01-11] VITALS: Ht 170.2 cm; Wt 113.4 kg
[2023-01-11] MEDS ORDERED: IPRATROPIUM 0.5MG/ALBUTEROL 2.5MG INH SOL UD 3ML (DUONEB) NEB ONE (16:50)
[2023-01-11] MEDS ORDERED: ALBUTEROL SULFATE 2.5MG/0.5ML INH NEB SOLN INH ONE (16:50)
[2023-01-11 17:15] LABS: BASO # 0.1 10^3/uL (0.0-0.2); BASO % 0.4 % (0.0-1.0); EOS # 0.3 10^3/uL (0.0-0.5); EOS % 1.8 % (0.0-3.0); HEMATOCRIT 46.1 % (36.0-47.0); LYMPH # 4.2 10^3/uL (1.5-5.0); MEAN CORPUSCULAR HEMOGLOBIN 26.3 pg (27.0-33.0); MEAN CORPUSCULAR HGB CONC 30.4 g/dl (32.0-36.5); MEAN CORPUSCULAR VOLUME 86.5 fl (80.0-96.0); MONO % 6.5 % (2.0-8.0); NEUTROPHILS % 61.6 % (36.0-66.0); PLATELET COUNT, AUTOMATED 288 10^3/uL (150-450); RED BLOOD COUNT 5.33 10^6/uL (4.00-5.40); WHITE BLOOD COUNT 14.6 10^3/uL (4.0-10.0)
[2023-01-11 17:31] LABS: INR 0.91; PROTHROMBIN TIME 12.5 SECONDS (12.5-14.5)
[2023-01-11 17:34] VITALS: O2SAT 92
[2023-01-11 17:38] LABS: ABG BASE EXCESS -1.2 (-2.0-2.0); ABG HCO3 26.9 MMOL/L (22.0-26.0); ABG O2 SATURATION 95.8 % (95.0-99.0); ABG PARTIAL PRESSURE CO2 59.3 mmHg (35.0-45.0); ABG PARTIAL PRESSURE O2 89.1 mmHg (75.0-100.0); ABG STANDARD HCO3 23.4 MMOL/L. (22.0-26.0); ABG TOTAL CO2 28.7 MMOL/L (23.0-31.0); ABG pH (ARTERIAL) 7.274 UNITS (7.350-7.450)
[2023-01-11 17:47] LABS: ALBUMIN 3.4 G/DL (3.2-5.2); ALKALINE PHOSPHATASE 129 U/L (46-116); ALT/SGPT 40 U/L (7.0-40); AST/SGOT 20 U/L (<34); BILIRUBIN,DIRECT 0.1 MG/DL (<0.4); BILIRUBIN,TOTAL 0.4 MG/DL (0.3-1.2); BLOOD UREA NITROGEN 19 MG/DL (9-23); CALCIUM LEVEL 9.3 MG/DL (8.3-10.6); CARBON DIOXIDE LEVEL 28 MMOL/L (20-31); CHLORIDE LEVEL 109 MMOL/L (98-107); CREATININE FOR GFR 0.94 MG/DL (0.55-1.30); GLOMERULAR FILTRATION RATE > 60.0 (>45); GLUCOSE, FASTING 184 MG/DL (74-106); POTASSIUM SERUM 4.2 MMOL/L (3.5-5.1); SODIUM LEVEL 143 MMOL/L (136-145); TOTAL PROTEIN 6.5 G/DL (5.7-8.2)
[2023-01-11 17:48] LABS: THYROXINE (T4) 8.3 UG/DL (4.5-10.9)
[2023-01-11 17:49] LABS: THYROID STIMULATING HORMONE 4.815 uIU/ML (0.55-4.78)
[2023-01-11 17:51] LABS: CPK CREATINE PHOSPHOKINASE 53 U/L (34-145); MB/CK RELATIVE INDEX 1.88 (< OR =4)
[2023-01-11 17:54] LABS: PROCALCITONIN 0.05 ng/ml
[2023-01-11 18:49] LABS: CK-MB VALUE MASS < 1.0 NG/ML (<3.6)
[2023-01-11 18:51] LABS: CPK CREATINE PHOSPHOKINASE 50 U/L (34-145)
[2023-01-11] MEDS: INSULIN LISPRO (NovoLOG) PER UNIT SC SCH (21:00)
[2023-01-11] MEDS ORDERED: LEVEMIR (INSULIN DETEMIR) 1 UNITS/0.01ML SC SCH (21:00)
[2023-01-11 21:13] LABS: ABG BASE EXCESS -2.2 (-2.0-2.0); ABG HCO3 23.4 MMOL/L (22.0-26.0); ABG O2 SATURATION 96.4 % (95.0-99.0); ABG PARTIAL PRESSURE CO2 43.1 mmHg (35.0-45.0); ABG PARTIAL PRESSURE O2 88.5 mmHg (75.0-100.0); ABG STANDARD HCO3 22.6 MMOL/L. (22.0-26.0); ABG TOTAL CO2 24.7 MMOL/L (23.0-31.0); ABG pH (ARTERIAL) 7.352 UNITS (7.350-7.450)
[2023-01-11] MEDS ORDERED: methylPREDNISolone 40MG 1ML VIAL IV SCH (22:00)
[2023-01-11] MEDS ORDERED: MELO15TA28 PO (22:06)
[2023-01-11] MEDS ORDERED: INCR1INH INH (22:06)
[2023-01-11] MEDS ORDERED: JARD1TAB PO (22:06)
[2023-01-11] MEDS ORDERED: PRED20TA PO (22:06)
[2023-01-11] MEDS ORDERED: NYST1POW9 TOP (22:06)
[2023-01-11] MEDS ORDERED: DOXY100T PO (22:06)
[2023-01-11] MEDS ORDERED: HOME MED LIST COMPLETE! XX SCH (22:10)
[2023-01-11] MEDS ORDERED: DEXTROSE 50% 50ML SYRINGE IV PRN (22:25)
[2023-01-11] MEDS ORDERED: GLUCOSE 4GM CHEW TABLET PO PRN (22:25)
[2023-01-11] MEDS ORDERED: GLUCAGON INJ 1MG VIAL SC PRN (22:25)
[2023-01-11] MEDS: AZITHROMYCIN 250MG TABLET PO SCH (22:54)
[2023-01-11] MEDS: methylPREDNISolone 40MG 1ML VIAL IV SCH (22:55)
[2023-01-11] MEDS: IPRATROPIUM 0.5MG/ALBUTEROL 2.5MG INH SOL UD 3ML (DUONEB) NEB SCH (23:04)
[2023-01-12] MEDS: IPRATROPIUM 0.5MG/ALBUTEROL 2.5MG INH SOL UD 3ML (DUONEB) NEB SCH ×5 (03:30→19:36)
[2023-01-12] MEDS ORDERED: ONDANSETRON 4MG TAB PO PRN (06:55)
[2023-01-12] MEDS ORDERED: NYSTATIN 100,000 UNITS/GM TOPICAL PWD 15GM TOP PRN (06:55)
[2023-01-12] MEDS ORDERED: guaiFENesin ER 600 MG TAB PO PRN (06:55)
[2023-01-12 07:38] LABS: HEMATOCRIT 42.4 % (36.0-47.0); MEAN CORPUSCULAR HEMOGLOBIN 26.5 pg (27.0-33.0); MEAN CORPUSCULAR HGB CONC 30.7 g/dl (32.0-36.5); MEAN CORPUSCULAR VOLUME 86.4 fl (80.0-96.0); PLATELET COUNT, AUTOMATED 253 10^3/uL (150-450); RED BLOOD COUNT 4.91 10^6/uL (4.00-5.40); WHITE BLOOD COUNT 11.3 10^3/uL (4.0-10.0)
[2023-01-12] MEDS: methylPREDNISolone 40MG 1ML VIAL IV SCH ×3 (07:53→23:48)
[2023-01-12 07:54] LABS: ALBUMIN 3.1 G/DL (3.2-5.2); ALKALINE PHOSPHATASE 131 U/L (46-116); ALT/SGPT 37 U/L (7.0-40); AST/SGOT < 8 U/L (<34); BILIRUBIN,TOTAL 0.5 MG/DL (0.3-1.2); BLOOD UREA NITROGEN 18 MG/DL (9-23); CARBON DIOXIDE LEVEL 29 MMOL/L (20-31); CHLORIDE LEVEL 106 MMOL/L (98-107); CREATININE FOR GFR 0.76 MG/DL (0.55-1.30); GLOMERULAR FILTRATION RATE > 60.0 (>45); GLUCOSE, FASTING 279 MG/DL (74-106); POTASSIUM SERUM 4.7 MMOL/L (3.5-5.1); SODIUM LEVEL 141 MMOL/L (136-145); TOTAL PROTEIN 6.5 G/DL (5.7-8.2)
[2023-01-12] MEDS: PANTOPRAZOLE 40MG TAB (PROTONIX) PO SCH (07:55)
[2023-01-12] MEDS: ATORVASTATIN 20 MG TAB PO SCH (07:55)
[2023-01-12] MEDS: ASPIRIN 81MG ENTERIC TABLET PO SCH (07:55)
[2023-01-12] MEDS: NICOTINE 21MG/24HR 1 EA TRANSDERMAL TD SCH (07:56)
[2023-01-12] MEDS: FUROSEMIDE 40 MG TAB PO SCH (07:56)
[2023-01-12] MEDS: SYMBICORT 160/4.5MCG INHALER 6GM INH SCH ×2 (08:04→19:36)
[2023-01-12] MEDS: TIOTROPIUM INHALER/CAPSULE (SPIRIVA) INH SCH (08:04)
[2023-01-12] MEDS: HEPARIN SOD (PORCINE) 5000UNITS/ML 1ML VIAL/SYRINGE SQ SCH ×2 (08:06→21:08)
[2023-01-12] MEDS: INSULIN LISPRO (NovoLOG) PER UNIT SC SCH ×4 (08:07→21:09)
[2023-01-12] MEDS: LEVEMIR (INSULIN DETEMIR) 1 UNITS/0.01ML SC SCH ×2 (08:07→21:10)
[2023-01-12 08:26] LABS: ABG BASE EXCESS -1.3 (-2.0-2.0); ABG HCO3 24.4 MMOL/L (22.0-26.0); ABG PARTIAL PRESSURE CO2 44.2 mmHg (35.0-45.0); ABG PARTIAL PRESSURE O2 116.8 mmHg (75.0-100.0); ABG STANDARD HCO3 23.4 MMOL/L. (22.0-26.0); ABG TOTAL CO2 25.7 MMOL/L (23.0-31.0); ABG pH (ARTERIAL) 7.359 UNITS (7.350-7.450)
[2023-01-12 08:31] LABS: HEMOGLOBIN A1c 8.2 % (4.0-6.0)
[2023-01-12] MEDS ORDERED: ENOXAPARIN 40MG/0.4ML SYRINGE (J1650 PER 10MG) SC SCH (09:00)
[2023-01-12] MEDS: MELOXICAM (MOBIC) 7.5 MG TAB PO SCH (10:15)
[2023-01-12] MEDS ORDERED: ACETAMINOPHEN 500 MG TAB PO PRN (16:45)
[2023-01-12 17:30] VITALS: BP 151/78; O2SAT 94
[2023-01-12 19:24] VITALS: BP 124/64; TEMP 96.9; O2SAT 97
[2023-01-12] MEDS: AZITHROMYCIN 250MG TABLET PO SCH (21:07)
[2023-01-12 23:40] VITALS: BP 132/72; TEMP 96.3; O2SAT 97
[2023-01-13] MEDS: IPRATROPIUM 0.5MG/ALBUTEROL 2.5MG INH SOL UD 3ML (DUONEB) NEB SCH ×6 (00:01→21:01)
[2023-01-13 03:32] VITALS: BP 149/77; TEMP 96.6; O2SAT 96
[2023-01-13] MEDS: TIOTROPIUM INHALER/CAPSULE (SPIRIVA) INH SCH (07:16)
[2023-01-13] MEDS: SYMBICORT 160/4.5MCG INHALER 6GM INH SCH ×2 (07:16→21:01)
[2023-01-13 07:32] VITALS: BP 157/80; TEMP 96.4; O2SAT 99
[2023-01-13 07:56] LABS: HEMATOCRIT 40.8 % (36.0-47.0); HEMOGLOBIN 12.7 g/dl (12.0-15.5); MEAN CORPUSCULAR HEMOGLOBIN 26.6 pg (27.0-33.0); MEAN CORPUSCULAR HGB CONC 31.1 g/dl (32.0-36.5); MEAN CORPUSCULAR VOLUME 85.4 fl (80.0-96.0); PLATELET COUNT, AUTOMATED 224 10^3/uL (150-450); RED BLOOD COUNT 4.78 10^6/uL (4.00-5.40); WHITE BLOOD COUNT 12.9 10^3/uL (4.0-10.0)
[2023-01-13 08:33] LABS: BLOOD UREA NITROGEN 34 MG/DL (9-23); CALCIUM LEVEL 10.1 MG/DL (8.3-10.6); CARBON DIOXIDE LEVEL 27 MMOL/L (20-31); CHLORIDE LEVEL 106 MMOL/L (98-107); CREATININE FOR GFR 0.82 MG/DL (0.55-1.30); GLOMERULAR FILTRATION RATE > 60.0 (>45); GLUCOSE, FASTING 321 MG/DL (74-106); POTASSIUM SERUM 4.7 MMOL/L (3.5-5.1); SODIUM LEVEL 141 MMOL/L (136-145)
[2023-01-13] MEDS: LEVEMIR (INSULIN DETEMIR) 1 UNITS/0.01ML SC SCH ×2 (09:11→20:52)
[2023-01-13] MEDS: INSULIN LISPRO (NovoLOG) PER UNIT SC SCH ×4 (09:12→20:53)
[2023-01-13] MEDS: methylPREDNISolone 40MG 1ML VIAL IV SCH ×2 (09:12→17:24)
[2023-01-13] MEDS: NICOTINE 21MG/24HR 1 EA TRANSDERMAL TD SCH (09:12)
[2023-01-13] MEDS: PANTOPRAZOLE 40MG TAB (PROTONIX) PO SCH (09:13)
[2023-01-13] MEDS: FUROSEMIDE 40 MG TAB PO SCH (09:13)
[2023-01-13] MEDS: ATORVASTATIN 20 MG TAB PO SCH (09:14)
[2023-01-13] MEDS: ASPIRIN 81MG ENTERIC TABLET PO SCH (09:14)
[2023-01-13] MEDS: HEPARIN SOD (PORCINE) 5000UNITS/ML 1ML VIAL/SYRINGE SQ SCH ×2 (09:14→20:53)
[2023-01-13] MEDS: MIRALAX *UNIT DOSE* 17GM PACKET PO PRN (10:44)
[2023-01-13] MEDS: MELOXICAM (MOBIC) 7.5 MG TAB PO SCH (12:18)
[2023-01-13] MEDS: FLUTICASONE PROP 0.05% NASAL SPRAY 16 GM (FLONASE) PRN (12:19)
[2023-01-13 12:22] VITALS: BP 151/88; TEMP 96.8; O2SAT 99
[2023-01-13 15:51] VITALS: BP 126/77; TEMP 97.6; O2SAT 99
[2023-01-13] MEDS: guaiFENesin DM LIQ 10ML UD PO SCH (17:23)
[2023-01-13] MEDS: CARBAMIDE PEROXIDE 6.5% OTIC SOLN 15ML AU PRN (17:27)
[2023-01-13 20:08] VITALS: BP 122/59; TEMP 97; O2SAT 96
[2023-01-13] MEDS: AZITHROMYCIN 250MG TABLET PO SCH (20:53)
[2023-01-13 21:19] VITALS: BP 127/81; O2SAT 99
[2023-01-14] MEDS: guaiFENesin DM LIQ 10ML UD PO SCH ×5 (00:38→23:56)
[2023-01-14] MEDS: methylPREDNISolone 40MG 1ML VIAL IV SCH ×2 (00:38→08:15)
[2023-01-14 00:56] VITALS: BP 143/74; TEMP 97.4; O2SAT 99
[2023-01-14 03:42] VITALS: BP 146/74; TEMP 97.6; O2SAT 96
[2023-01-14] MEDS: IPRATROPIUM 0.5MG/ALBUTEROL 2.5MG INH SOL UD 3ML (DUONEB) NEB SCH ×7 (04:00→23:08)
[2023-01-14 05:40] LABS: HEMATOCRIT 40.9 % (36.0-47.0); HEMOGLOBIN 12.6 g/dl (12.0-15.5); MEAN CORPUSCULAR HEMOGLOBIN 26.5 pg (27.0-33.0); MEAN CORPUSCULAR HGB CONC 30.8 g/dl (32.0-36.5); MEAN CORPUSCULAR VOLUME 86.1 fl (80.0-96.0); PLATELET COUNT, AUTOMATED 207 10^3/uL (150-450); RED BLOOD COUNT 4.75 10^6/uL (4.00-5.40); WHITE BLOOD COUNT 11.6 10^3/uL (4.0-10.0)
[2023-01-14 06:04] LABS: BLOOD UREA NITROGEN 40 MG/DL (9-23); CARBON DIOXIDE LEVEL 28 MMOL/L (20-31); CHLORIDE LEVEL 105 MMOL/L (98-107); CREATININE FOR GFR 0.83 MG/DL (0.55-1.30); GLOMERULAR FILTRATION RATE > 60.0 (>45); GLUCOSE, FASTING 364 MG/DL (74-106); SODIUM LEVEL 141 MMOL/L (136-145)
[2023-01-14 07:40] VITALS: BP 162/80; TEMP 96.4; O2SAT 98
[2023-01-14] MEDS: TIOTROPIUM INHALER/CAPSULE (SPIRIVA) INH SCH (07:41)
[2023-01-14] MEDS: SYMBICORT 160/4.5MCG INHALER 6GM INH SCH ×2 (07:41→19:12)
[2023-01-14] MEDS: PANTOPRAZOLE 40MG TAB (PROTONIX) PO SCH (08:13)
[2023-01-14] MEDS: cefTRIAXone SOD 1 GM in D5W MINI-BAG PLUS 50 ML IV SCH (08:13)
[2023-01-14] MEDS: ATORVASTATIN 20 MG TAB PO SCH (08:13)
[2023-01-14] MEDS: FUROSEMIDE 40 MG TAB PO SCH (08:13)
[2023-01-14] MEDS: ASPIRIN 81MG ENTERIC TABLET PO SCH (08:14)
[2023-01-14] MEDS: MELOXICAM (MOBIC) 7.5 MG TAB PO SCH (08:14)
[2023-01-14] MEDS: HEPARIN SOD (PORCINE) 5000UNITS/ML 1ML VIAL/SYRINGE SQ SCH ×2 (08:15→20:53)
[2023-01-14] MEDS: NICOTINE 21MG/24HR 1 EA TRANSDERMAL TD SCH (08:15)
[2023-01-14] MEDS: LEVEMIR (INSULIN DETEMIR) 1 UNITS/0.01ML SC SCH ×2 (08:16→20:53)
[2023-01-14] MEDS: INSULIN LISPRO (NovoLOG) PER UNIT SC SCH ×4 (08:17→20:54)
[2023-01-14] MEDS: CARBAMIDE PEROXIDE 6.5% OTIC SOLN 15ML AU PRN (08:18)
[2023-01-14] MEDS: MIRALAX *UNIT DOSE* 17GM PACKET PO PRN (09:01)
[2023-01-14 12:11] VITALS: BP 162/83; TEMP 97.4; O2SAT 98
[2023-01-14] MEDS: predniSONE 20 MG TAB PO SCH (13:32)
[2023-01-14] MEDS ORDERED: INSULIN LISPRO (NovoLOG) PER UNIT SC ONE (14:00)
[2023-01-14 15:40] VITALS: BP 157/78; TEMP 97.6; O2SAT 93
[2023-01-14 20:00] VITALS: BP 157/72; TEMP 97.8; O2SAT 94
[2023-01-14] MEDS: FLUTICASONE PROP 0.05% NASAL SPRAY 16 GM (FLONASE) PRN (20:00)
[2023-01-14] MEDS: AZITHROMYCIN 250MG TABLET PO SCH (20:52)
[2023-01-15] VITALS: BP 164/76; TEMP 98; O2SAT 94
[2023-01-15] MEDS: IPRATROPIUM 0.5MG/ALBUTEROL 2.5MG INH SOL UD 3ML (DUONEB) NEB SCH ×3 (03:13→12:24)
[2023-01-15 04:00] VITALS: BP 155/105; TEMP 98.6; O2SAT 94
[2023-01-15 05:59] LABS: HEMOGLOBIN 12.7 g/dl (12.0-15.5); MEAN CORPUSCULAR HEMOGLOBIN 26.2 pg (27.0-33.0); MEAN CORPUSCULAR VOLUME 84.5 fl (80.0-96.0); PLATELET COUNT, AUTOMATED 210 10^3/uL (150-450); RED BLOOD COUNT 4.85 10^6/uL (4.00-5.40); WHITE BLOOD COUNT 13.2 10^3/uL (4.0-10.0)
[2023-01-15] MEDS: guaiFENesin DM LIQ 10ML UD PO SCH ×2 (06:15→12:24)
[2023-01-15 06:33] LABS: BLOOD UREA NITROGEN 35 MG/DL (9-23); CALCIUM LEVEL 9.7 MG/DL (8.3-10.6); CARBON DIOXIDE LEVEL 30 MMOL/L (20-31); CHLORIDE LEVEL 105 MMOL/L (98-107); CREATININE FOR GFR 0.85 MG/DL (0.55-1.30); GLOMERULAR FILTRATION RATE > 60.0 (>45); GLUCOSE, FASTING 298 MG/DL (74-106); POTASSIUM SERUM 4.6 MMOL/L (3.5-5.1); SODIUM LEVEL 141 MMOL/L (136-145)
[2023-01-15] MEDS: SYMBICORT 160/4.5MCG INHALER 6GM INH SCH (08:13)
[2023-01-15] MEDS: TIOTROPIUM INHALER/CAPSULE (SPIRIVA) INH SCH (08:13)
[2023-01-15 08:17] VITALS: BP 169/85; TEMP 96.4; O2SAT 95
[2023-01-15] MEDS ORDERED: HumuLIN N INSULIN (NovoLIN N) PER UNIT SC SCH ×2 (09:00)
[2023-01-15] MEDS ORDERED: LEVEMIR (INSULIN DETEMIR) 1 UNITS/0.01ML SC SCH (09:00)
[2023-01-15] MEDS: ASPIRIN 81MG ENTERIC TABLET PO SCH (09:59)
[2023-01-15] MEDS: ATORVASTATIN 20 MG TAB PO SCH (10:00)
[2023-01-15] MEDS: HEPARIN SOD (PORCINE) 5000UNITS/ML 1ML VIAL/SYRINGE SQ SCH (10:00)
[2023-01-15] MEDS: MELOXICAM (MOBIC) 7.5 MG TAB PO SCH (10:00)
[2023-01-15] MEDS: PANTOPRAZOLE 40MG TAB (PROTONIX) PO SCH (10:01)
[2023-01-15] MEDS: predniSONE 20 MG TAB PO SCH (10:01)
[2023-01-15] MEDS: cefTRIAXone SOD 1 GM in D5W MINI-BAG PLUS 50 ML IV SCH (10:03)
[2023-01-15] MEDS: NICOTINE 21MG/24HR 1 EA TRANSDERMAL TD SCH (10:04)
[2023-01-15] MEDS: FUROSEMIDE 40 MG TAB PO SCH (10:04)
[2023-01-15] MEDS ORDERED: PRED50TA PO (10:21)
[2023-01-15] MEDS ORDERED: IPRA0.00 INH (10:21)
[2023-01-15] MEDS ORDERED: PRED20TA PO (10:21)
[2023-01-15] MEDS ORDERED: CEFP200T PO (10:21)
[2023-01-15] MEDS ORDERED: CARBOT AU (10:21)
[2023-01-15 11:41] VITALS: BP 133/58; TEMP 97.5; O2SAT 92
[2023-01-15] MEDS ORDERED: INSULIN LISPRO (NovoLOG) PER UNIT SC SCH (12:00)
== END 2023-01-15 15:42 | disposition home health service (06) | DRG 189 ==
LOC: M ED 16:38 → M ED INP 20:39 → ENRESERV 01-12 16:47 → M PCU 01-12 17:23
PROVIDERS: ADMIT Internal Medicine Nephrology; ATTEND Internal Medicine Nephrology
DX: J96.21 Acute and chronic respiratory failure with hypoxia (principal); J14 Pneumonia due to Hemophilus influenzae; J44.1 Chronic obstructive pulmonary disease with (acute) exacerbation; E66.2 Morbid (severe) obesity with alveolar hypoventilation; I50.32 Chronic diastolic (congestive) heart failure; J44.0 Chronic obstructive pulmonary disease with (acute) lower respiratory infection; J96.22 Acute and chronic respiratory failure with hypercapnia; I27.20 Pulmonary hypertension, unspecified; E11.51 Type 2 diabetes mellitus with diabetic peripheral angiopathy without gangrene; I73.9 Peripheral vascular disease, unspecified; I11.0 Hypertensive heart disease with heart failure; E78.5 Hyperlipidemia, unspecified; K21.9 Gastro-esophageal reflux disease without esophagitis; M54.50 Low back pain, unspecified; G89.29 Other chronic pain; K44.9 Diaphragmatic hernia without obstruction or gangrene; F17.200 Nicotine dependence, unspecified, uncomplicated; Z99.81 Dependence on supplemental oxygen; Z90.49 Acquired absence of other specified parts of digestive tract; Z79.82 Long term (current) 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; Z79.4 Long term (current) use of insulin; Z79.52 Long term (current) use of systemic steroids; Z79.899 Other long term (current) drug therapy; Z88.0 Allergy status to penicillin; Z88.1 Allergy status to other antibiotic agents; Z88.2 Allergy status to sulfonamides; Z88.8 Allergy status to other drugs, medicaments and biological substances; Z20.822 Contact with and (suspected) exposure to COVID-19; Z93.3 Colostomy status

== ENCOUNTER 2023-01-16 07:18 | Inpatient (IN) | payer MEDICARE, MEDICAID ==
[~2023-01-16] VITALS: Ht 170.2 cm; Wt 108.8 kg
[~2023-01-16 07:18] MED LIST changes: +CARBOT AU; +CEFP200T PO; +JARD1TAB PO; +MELO15TA28 PO; +NYST1POW9 TOP; +PRED50TA PO
[2023-01-16] MEDS ORDERED: IPRATROPIUM 0.5MG/ALBUTEROL 2.5MG INH SOL UD 3ML (DUONEB) NEB ONE (07:40)
[2023-01-16] MEDS ORDERED: ALBUTEROL SULFATE 2.5MG/0.5ML INH NEB SOLN INH ONE (07:40)
[2023-01-16] MEDS ORDERED: MED REC IN PROGRESS XX SCH (08:20)
[2023-01-16 08:21] LABS: ABG BASE EXCESS 3.5 (-2.0-2.0); ABG HCO3 28.3 MMOL/L (22.0-26.0); ABG O2 SATURATION 98.8 % (95.0-99.0); ABG PARTIAL PRESSURE CO2 43.5 mmHg (35.0-45.0); ABG PARTIAL PRESSURE O2 132.2 mmHg (75.0-100.0); ABG STANDARD HCO3 27.6 MMOL/L. (22.0-26.0); ABG TOTAL CO2 29.6 MMOL/L (23.0-31.0); ABG pH (ARTERIAL) 7.431 UNITS (7.350-7.450)
[2023-01-16 08:21] LABS: HEMATOCRIT 48.4 % (36.0-47.0); HEMOGLOBIN 15.2 g/dl (12.0-15.5); MEAN CORPUSCULAR HEMOGLOBIN 26.3 pg (27.0-33.0); MEAN CORPUSCULAR HGB CONC 31.4 g/dl (32.0-36.5); MEAN CORPUSCULAR VOLUME 83.6 fl (80.0-96.0); PLATELET COUNT, AUTOMATED 287 10^3/uL (150-450); RED BLOOD COUNT 5.79 10^6/uL (4.00-5.40); WHITE BLOOD COUNT 21.2 10^3/uL (4.0-10.0)
[2023-01-16] MEDS ORDERED: ISOVUE-370 76% 100ML VIAL As Ordered ONE (08:21)
[2023-01-16 08:29] LABS: INR 0.96; PROTHROMBIN TIME 12.5 SECONDS (12.5-14.5)
[2023-01-16 08:44] LABS: ATYPICAL LYMPH 6 % (0-5); LYMPHOCYTES 19 % (16-44); METAMYELOCYTES 2 % (0-0); MONOCYTES 5 % (0-5); MYELOCYTES 1 % (0-0); NEUTROPHILS 65 % (28-66)
[2023-01-16 08:45] LABS: PLATELET CLUMPS SMALL AMT; PLATELET ESTIMATE NORMAL (NORMAL)
[2023-01-16 08:46] LABS: POLYCHROMASIA 1+
[2023-01-16 08:48] LABS: CPK CREATINE PHOSPHOKINASE 51 U/L (34-145)
[2023-01-16 08:49] LABS: ALBUMIN 3.4 G/DL (3.2-5.2); ALKALINE PHOSPHATASE 102 U/L (46-116); ALT/SGPT 43 U/L (7.0-40); AST/SGOT 15 U/L (<34); BILIRUBIN,DIRECT 0.3 MG/DL (<0.4); BILIRUBIN,TOTAL 0.7 MG/DL (0.3-1.2); BLOOD UREA NITROGEN 36 MG/DL (9-23); CALCIUM LEVEL 9.8 MG/DL (8.3-10.6); CARBON DIOXIDE LEVEL 31 MMOL/L (20-31); CHLORIDE LEVEL 104 MMOL/L (98-107); CK-MB VALUE MASS < 1.0 NG/ML (<3.6); CREATININE FOR GFR 0.91 MG/DL (0.55-1.30); GLOMERULAR FILTRATION RATE > 60.0 (>45); GLUCOSE, FASTING 82 MG/DL (74-106); MB/CK RELATIVE INDEX 1.96 (< OR =4); POTASSIUM SERUM 3.9 MMOL/L (3.5-5.1); SODIUM LEVEL 142 MMOL/L (136-145); TOTAL PROTEIN 6.6 G/DL (5.7-8.2)
[2023-01-16 08:50] LABS: THYROID STIMULATING HORMONE 2.862 uIU/ML (0.55-4.78); THYROXINE (T4) 7.2 UG/DL (4.5-10.9)
[2023-01-16] MEDS ORDERED: LEVEMIR (INSULIN DETEMIR) 1 UNITS/0.01ML SC SCH (09:00)
[2023-01-16] MEDS ORDERED: HOME MED LIST COMPLETE! XX SCH (09:20)
[2023-01-16 09:40] LABS: CK-MB VALUE MASS < 1.0 NG/ML (<3.6)
[2023-01-16 09:45] LABS: CPK CREATINE PHOSPHOKINASE 49 U/L (34-145); MB/CK RELATIVE INDEX 2.04 (< OR =4)
[2023-01-16] MEDS ORDERED: LevoFLOXacin IV 750 MG in IV 1 EA IV ONE (10:35)
[2023-01-16] MEDS ORDERED: MOM 30ML SUSPENSION UDC PO PRN (11:05)
[2023-01-16] MEDS ORDERED: cefTRIAXone SOD 1 GM in D5W MINI-BAG PLUS 50 ML IV SCH (11:05)
[2023-01-16] MEDS ORDERED: GLUCOSE 4GM CHEW TABLET PO PRN (11:15)
[2023-01-16] MEDS ORDERED: NYSTATIN 100,000 UNITS/GM TOPICAL PWD 15GM TOP PRN ×2 (11:15→11:25)
[2023-01-16] MEDS ORDERED: GLUCAGON INJ 1MG VIAL SC PRN (11:15)
[2023-01-16] MEDS ORDERED: FLUTICASONE PROP 0.05% NASAL SPRAY 16 GM (FLONASE) PRN (11:15)
[2023-01-16] MEDS ORDERED: ONDANSETRON 4MG TAB PO PRN (11:15)
[2023-01-16] MEDS ORDERED: guaiFENesin ER 600 MG TAB PO PRN (11:15)
[2023-01-16] MEDS ORDERED: DEXTROSE 50% 50ML SYRINGE IV PRN (11:15)
[2023-01-16 11:46] LABS: PROCALCITONIN 0.04 ng/ml
[2023-01-16] MEDS: INSULIN LISPRO (NovoLOG) PER UNIT SC SCH ×3 (12:48→20:18)
[2023-01-16] MEDS: ASPIRIN 81MG ENTERIC TABLET PO SCH (12:51)
[2023-01-16] MEDS: ATORVASTATIN 20 MG TAB PO SCH (12:51)
[2023-01-16] MEDS: PANTOPRAZOLE 40MG TAB (PROTONIX) PO SCH (12:52)
[2023-01-16] MEDS: FUROSEMIDE 40 MG TAB PO SCH (12:52)
[2023-01-16] MEDS: methylPREDNISolone 125MG 2ML VIAL IV SCH (12:53)
[2023-01-16 13:08] VITALS: O2SAT 94
[2023-01-16 13:10] VITALS: O2SAT 94
[2023-01-16 13:12] VITALS: O2SAT 94
[2023-01-16] MEDS: SYMBICORT 160/4.5MCG INHALER 6GM INH SCH ×2 (13:13→19:22)
[2023-01-16] MEDS: IPRATROPIUM 0.5MG/ALBUTEROL 2.5MG INH SOL UD 3ML (DUONEB) NEB SCH ×2 (13:13→19:22)
[2023-01-16] MEDS: TIOTROPIUM INHALER/CAPSULE (SPIRIVA) INH SCH (13:14)
[2023-01-16 13:55] VITALS: BP 126/81; TEMP 97.9; O2SAT 93
[2023-01-16] MEDS: NICOTINE 21MG/24HR 1 EA TRANSDERMAL TD SCH (14:25)
[2023-01-16] MEDS: MELOXICAM (MOBIC) 7.5 MG TAB PO SCH (14:25)
[2023-01-16] MEDS: RIVAROXABAN 10MG TAB (XARELTO) PO SCH (16:54)
[2023-01-16] MEDS: DOCUSATE SODIUM 100MG CAPSULE PO SCH (20:15)
[2023-01-16] MEDS: ACETAMINOPHEN TAB 650MG DOSE (2X325MG) PO PRN (20:16)
[2023-01-16] MEDS: LEVEMIR (INSULIN DETEMIR) 1 UNITS/0.01ML SC SCH (20:17)
[2023-01-16 22:00] VITALS: BP 125/79; TEMP 97.9; O2SAT 96
[2023-01-17] MEDS: methylPREDNISolone 125MG 2ML VIAL IV SCH (00:01)
[2023-01-17] MEDS: IPRATROPIUM 0.5MG/ALBUTEROL 2.5MG INH SOL UD 3ML (DUONEB) NEB SCH ×4 (02:49→19:53)
[2023-01-17 06:00] VITALS: BP 148/86; TEMP 96.8; O2SAT 95
[2023-01-17 06:38] LABS: HEMATOCRIT 43.9 % (36.0-47.0); HEMOGLOBIN 13.7 g/dl (12.0-15.5); MEAN CORPUSCULAR HEMOGLOBIN 26.2 pg (27.0-33.0); MEAN CORPUSCULAR HGB CONC 31.2 g/dl (32.0-36.5); MEAN CORPUSCULAR VOLUME 83.9 fl (80.0-96.0); PLATELET COUNT, AUTOMATED 232 10^3/uL (150-450); RED BLOOD COUNT 5.23 10^6/uL (4.00-5.40); WHITE BLOOD COUNT 16.1 10^3/uL (4.0-10.0)
[2023-01-17 07:07] LABS: BLOOD UREA NITROGEN 42 MG/DL (9-23); CALCIUM LEVEL 9.7 MG/DL (8.3-10.6); CARBON DIOXIDE LEVEL 29 MMOL/L (20-31); CHLORIDE LEVEL 101 MMOL/L (98-107); CREATININE FOR GFR 0.89 MG/DL (0.55-1.30); GLOMERULAR FILTRATION RATE > 60.0 (>45); GLUCOSE, FASTING 351 MG/DL (74-106); POTASSIUM SERUM 4.6 MMOL/L (3.5-5.1); SODIUM LEVEL 138 MMOL/L (136-145)
[2023-01-17 07:26] LABS: ATYPICAL LYMPH 5 % (0-5); LYMPHOCYTES 1 % (16-44); METAMYELOCYTES 1 % (0-0); MONOCYTES 3 % (0-5); NEUTROPHILS 88 % (28-66)
[2023-01-17 07:27] LABS: PLATELET ESTIMATE NORMAL (NORMAL)
[2023-01-17 07:28] LABS: MICROCYTOSIS 1+; POLYCHROMASIA 1+
[2023-01-17] MEDS: SYMBICORT 160/4.5MCG INHALER 6GM INH SCH ×2 (07:57→19:53)
[2023-01-17] MEDS: TIOTROPIUM INHALER/CAPSULE (SPIRIVA) INH SCH (07:57)
[2023-01-17] MEDS: AZITHROMYCIN 250MG TABLET PO SCH (09:38)
[2023-01-17] MEDS: ATORVASTATIN 20 MG TAB PO SCH (09:38)
[2023-01-17] MEDS: PANTOPRAZOLE 40MG TAB (PROTONIX) PO SCH (09:38)
[2023-01-17] MEDS: FUROSEMIDE 40 MG TAB PO SCH (09:38)
[2023-01-17] MEDS: ASPIRIN 81MG ENTERIC TABLET PO SCH (09:38)
[2023-01-17] MEDS: DOCUSATE SODIUM 100MG CAPSULE PO SCH ×2 (09:38→20:28)
[2023-01-17] MEDS: NICOTINE 21MG/24HR 1 EA TRANSDERMAL TD SCH (09:39)
[2023-01-17] MEDS: MELOXICAM (MOBIC) 7.5 MG TAB PO SCH (09:39)
[2023-01-17] MEDS: LEVEMIR (INSULIN DETEMIR) 1 UNITS/0.01ML SC SCH ×2 (09:40→20:29)
[2023-01-17] MEDS: INSULIN LISPRO (NovoLOG) PER UNIT SC SCH ×4 (09:40→20:28)
[2023-01-17] MEDS: cefTRIAXone SOD 1 GM in D5W MINI-BAG PLUS 50 ML IV SCH (09:41)
[2023-01-17] MEDS ORDERED: INSULIN LISPRO (NovoLOG) PER UNIT SC ONE ×2 (12:50→17:30)
[2023-01-17] MEDS: guaiFENesin ER 600 MG TAB PO SCH ×2 (13:07→18:06)
[2023-01-17 14:00] VITALS: BP 118/72; TEMP 97.7; O2SAT 97
[2023-01-17] MEDS: predniSONE 50 MG TAB PO SCH (18:05)
[2023-01-17] MEDS: RIVAROXABAN 10MG TAB (XARELTO) PO SCH (18:06)
[2023-01-17 20:00] VITALS: BP 118/72; TEMP 94.3; O2SAT 96
[2023-01-17] MEDS: MIRALAX *UNIT DOSE* 17GM PACKET PO PRN (21:04)
[2023-01-18] MEDS: guaiFENesin ER 600 MG TAB PO SCH ×3 (00:15→06:12)
[2023-01-18] MEDS: IPRATROPIUM 0.5MG/ALBUTEROL 2.5MG INH SOL UD 3ML (DUONEB) NEB SCH ×4 (03:10→20:00)
[2023-01-18 05:55] VITALS: BP 117/72; TEMP 96; O2SAT 89
[2023-01-18 06:44] LABS: HEMATOCRIT 41.7 % (36.0-47.0); HEMOGLOBIN 12.9 g/dl (12.0-15.5); MEAN CORPUSCULAR HEMOGLOBIN 26.4 pg (27.0-33.0); MEAN CORPUSCULAR HGB CONC 30.9 g/dl (32.0-36.5); MEAN CORPUSCULAR VOLUME 85.5 fl (80.0-96.0); PLATELET COUNT, AUTOMATED 200 10^3/uL (150-450); RED BLOOD COUNT 4.88 10^6/uL (4.00-5.40); WHITE BLOOD COUNT 15.9 10^3/uL (4.0-10.0)
[2023-01-18] MEDS: TIOTROPIUM INHALER/CAPSULE (SPIRIVA) INH SCH (07:11)
[2023-01-18] MEDS: SYMBICORT 160/4.5MCG INHALER 6GM INH SCH ×2 (07:12→20:01)
[2023-01-18 07:17] LABS: BLOOD UREA NITROGEN 45 MG/DL (9-23); CALCIUM LEVEL 9.3 MG/DL (8.3-10.6); CARBON DIOXIDE LEVEL 29 MMOL/L (20-31); CHLORIDE LEVEL 103 MMOL/L (98-107); CREATININE FOR GFR 0.88 MG/DL (0.55-1.30); GLOMERULAR FILTRATION RATE > 60.0 (>45); GLUCOSE, FASTING 316 MG/DL (74-106); POTASSIUM SERUM 5.2 MMOL/L (3.5-5.1); SODIUM LEVEL 140 MMOL/L (136-145)
[2023-01-18] MEDS: INSULIN LISPRO (NovoLOG) PER UNIT SC SCH ×4 (07:30→21:00)
[2023-01-18 07:53] LABS: ATYPICAL LYMPH 7 % (0-5); EOSINOPHILS 1 % (0-3); LYMPHOCYTES 5 % (16-44); METAMYELOCYTES 3 % (0-0); MONOCYTES 3 % (0-5); MYELOCYTES 1 % (0-0); NEUTROPHILS 79 % (28-66)
[2023-01-18 07:54] LABS: PLATELET ESTIMATE NORMAL (NORMAL)
[2023-01-18] MEDS: PANTOPRAZOLE 40MG TAB (PROTONIX) PO SCH (08:17)
[2023-01-18] MEDS: DOCUSATE SODIUM 100MG CAPSULE PO SCH ×2 (08:17→21:44)
[2023-01-18] MEDS: cefTRIAXone SOD 1 GM in D5W MINI-BAG PLUS 50 ML IV SCH (08:17)
[2023-01-18] MEDS: AZITHROMYCIN 250MG TABLET PO SCH (08:17)
[2023-01-18] MEDS: FUROSEMIDE 40 MG TAB PO SCH (08:17)
[2023-01-18] MEDS: ASPIRIN 81MG ENTERIC TABLET PO SCH (08:17)
[2023-01-18] MEDS: LEVEMIR (INSULIN DETEMIR) 1 UNITS/0.01ML SC SCH ×2 (08:17→21:46)
[2023-01-18] MEDS: predniSONE 50 MG TAB PO SCH (08:18)
[2023-01-18] MEDS: MELOXICAM (MOBIC) 7.5 MG TAB PO SCH (08:18)
[2023-01-18] MEDS: ACETAMINOPHEN TAB 650MG DOSE (2X325MG) PO PRN ×2 (08:18→17:21)
[2023-01-18] MEDS: ATORVASTATIN 20 MG TAB PO SCH (08:18)
[2023-01-18] MEDS: NICOTINE 21MG/24HR 1 EA TRANSDERMAL TD SCH (09:00)
[2023-01-18] MEDS: LIDOCAINE 5% (LIDODERM) PATCH TD SCH (09:00)
[2023-01-18 14:00] VITALS: BP 116/65; TEMP 97.5; O2SAT 97
[2023-01-18] MEDS: RIVAROXABAN 10MG TAB (XARELTO) PO SCH (17:17)
[2023-01-18 19:39] VITALS: BP 108/59; TEMP 96.6; O2SAT 96
[2023-01-18] MEDS: MIRALAX *UNIT DOSE* 17GM PACKET PO PRN (22:28)
[2023-01-19] MEDS: CARBAMIDE PEROXIDE 6.5% OTIC SOLN 15ML AU PRN ×2 (00:34→08:12)
[2023-01-19] MEDS: IPRATROPIUM 0.5MG/ALBUTEROL 2.5MG INH SOL UD 3ML (DUONEB) NEB SCH ×3 (02:43→13:18)
[2023-01-19 06:35] VITALS: BP 118/82; TEMP 97.3; O2SAT 98
[2023-01-19 06:39] LABS: BASO # 0.1 10^3/uL (0.0-0.2); BASO % 0.3 % (0.0-1.0); EOS # 0.1 10^3/uL (0.0-0.5); EOS % 0.9 % (0.0-3.0); HEMATOCRIT 40.7 % (36.0-47.0); HEMOGLOBIN 12.3 g/dl (12.0-15.5); LYMPH # 4.2 10^3/uL (1.5-5.0); LYMPH % 28.2 % (24.0-44.0); MEAN CORPUSCULAR HEMOGLOBIN 26.3 pg (27.0-33.0); MEAN CORPUSCULAR HGB CONC 30.2 g/dl (32.0-36.5); MONO # 0.7 10^3/uL (0.0-0.8); MONO % 4.8 % (2.0-8.0); NEUTROPHILS # 9.1 10^3/uL (1.5-8.5); PLATELET COUNT, AUTOMATED 182 10^3/uL (150-450); RED BLOOD COUNT 4.68 10^6/uL (4.00-5.40); WHITE BLOOD COUNT 14.9 10^3/uL (4.0-10.0)
[2023-01-19 07:06] LABS: BLOOD UREA NITROGEN 45 MG/DL (9-23); CALCIUM LEVEL 8.8 MG/DL (8.3-10.6); CARBON DIOXIDE LEVEL 31 MMOL/L (20-31); CHLORIDE LEVEL 106 MMOL/L (98-107); CREATININE FOR GFR 0.86 MG/DL (0.55-1.30); GLOMERULAR FILTRATION RATE > 60.0 (>45); GLUCOSE, FASTING 116 MG/DL (74-106); SODIUM LEVEL 142 MMOL/L (136-145)
[2023-01-19] MEDS: SYMBICORT 160/4.5MCG INHALER 6GM INH SCH (07:38)
[2023-01-19] MEDS: TIOTROPIUM INHALER/CAPSULE (SPIRIVA) INH SCH (07:42)
[2023-01-19 07:43] VITALS: O2SAT 96
[2023-01-19] MEDS: cefTRIAXone SOD 1 GM in D5W MINI-BAG PLUS 50 ML IV SCH (08:10)
[2023-01-19] MEDS: INSULIN LISPRO (NovoLOG) PER UNIT SC SCH ×2 (08:11→12:00)
[2023-01-19] MEDS: LIDOCAINE 5% (LIDODERM) PATCH TD SCH (08:12)
[2023-01-19] MEDS: LEVEMIR (INSULIN DETEMIR) 1 UNITS/0.01ML SC SCH (08:12)
[2023-01-19] MEDS: AZITHROMYCIN 250MG TABLET PO SCH (08:13)
[2023-01-19] MEDS: DOCUSATE SODIUM 100MG CAPSULE PO SCH (08:13)
[2023-01-19] MEDS: ATORVASTATIN 20 MG TAB PO SCH (08:13)
[2023-01-19] MEDS: ASPIRIN 81MG ENTERIC TABLET PO SCH (08:13)
[2023-01-19] MEDS: MELOXICAM (MOBIC) 7.5 MG TAB PO SCH (08:13)
[2023-01-19] MEDS: ACETAMINOPHEN TAB 650MG DOSE (2X325MG) PO PRN (08:13)
[2023-01-19] MEDS: PANTOPRAZOLE 40MG TAB (PROTONIX) PO SCH (08:13)
[2023-01-19] MEDS: predniSONE 50 MG TAB PO SCH (08:13)
[2023-01-19] MEDS: FUROSEMIDE 40 MG TAB PO SCH (08:14)
[2023-01-19] MEDS: NICOTINE 21MG/24HR 1 EA TRANSDERMAL TD SCH (09:00)
[2023-01-19] MEDS ORDERED: PRED10TA2 PO (11:48)
[2023-01-19] MEDS ORDERED: LANTINJ4 SC (11:48)
[2023-01-19] MEDS ORDERED: CEFP200T PO (11:51)
== END 2023-01-19 15:45 | disposition home health service (06) | DRG 193 ==
LOC: M ED 07:18 → EDBD 07:18 → M ED INP 11:02 → M MS5PR 13:36
PROVIDERS: ADMIT Student in an Organized Health Care Education/Training Program; ATTEND Internal Medicine
DX: J14 Pneumonia due to Hemophilus influenzae (principal); J96.21 Acute and chronic respiratory failure with hypoxia; I50.32 Chronic diastolic (congestive) heart failure; J44.1 Chronic obstructive pulmonary disease with (acute) exacerbation; J44.0 Chronic obstructive pulmonary disease with (acute) lower respiratory infection; E66.2 Morbid (severe) obesity with alveolar hypoventilation; E11.65 Type 2 diabetes mellitus with hyperglycemia; K21.9 Gastro-esophageal reflux disease without esophagitis; Z79.4 Long term (current) use of insulin; I11.0 Hypertensive heart disease with heart failure; G47.33 Obstructive sleep apnea (adult) (pediatric); I27.20 Pulmonary hypertension, unspecified; K44.9 Diaphragmatic hernia without obstruction or gangrene; M54.59 Other low back pain; Z88.0 Allergy status to penicillin; Z88.8 Allergy status to other drugs, medicaments and biological substances; Z88.2 Allergy status to sulfonamides; Z79.899 Other long term (current) drug therapy; Z79.82 Long term (current) 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; Z79.52 Long term (current) use of systemic steroids; E11.51 Type 2 diabetes mellitus with diabetic peripheral angiopathy without gangrene

== ENCOUNTER 2023-04-05 16:25 | Inpatient (IN) | payer MEDICARE, MEDICAID ==
[~2023-04-05] VITALS: Ht 170.2 cm; Wt 115.7 kg
[2023-04-05] MEDS ORDERED: NITROGLYCERIN 0.4MG SUBL TABLET SL PRN (16:45)
[2023-04-05] MEDS ORDERED: methylPREDNISolone 125MG 2ML VIAL IV ONE (16:45)
[2023-04-05] MEDS ORDERED: IPRATROPIUM 0.5MG/ALBUTEROL 2.5MG INH SOL UD 3ML (DUONEB) NEB PRN ×2 (16:45→18:45)
[2023-04-05 17:16] LABS: VENOUS BASE EXCESS -2.9 (-2.0-2.0); VENOUS HCO3 22.6 MMOL/L (23.0-27.0); VENOUS O2 SATURATION 96.4 % (60.0-80.0); VENOUS PARTIAL PRESSURE CO2 42.2 mmHg (38.0-50.0); VENOUS PARTIAL PRESSURE O2 84.5 mmHg (30.0-50.0); VENOUS PH 7.347 UNITS (7.330-7.430); VENOUS TOTAL CO2 23.9 MMOL/L (24.0-28.0)
[2023-04-05 17:25] LABS: BASO # 0.1 10^3/uL (0.0-0.2); BASO % 0.5 % (0.0-1.0); EOS # 0.1 10^3/uL (0.0-0.5); EOS % 0.4 % (0.0-3.0); HEMATOCRIT 43.5 % (36.0-47.0); HEMOGLOBIN 13.8 g/dl (12.0-15.5); LYMPH # 1.2 10^3/uL (1.5-5.0); LYMPH % 9.9 % (24.0-44.0); MEAN CORPUSCULAR HEMOGLOBIN 26.8 pg (27.0-33.0); MEAN CORPUSCULAR HGB CONC 31.7 g/dl (32.0-36.5); MEAN CORPUSCULAR VOLUME 84.6 fl (80.0-96.0); MONO # 0.2 10^3/uL (0.0-0.8); MONO % 1.7 % (2.0-8.0); NEUTROPHILS # 10.4 10^3/uL (1.5-8.5); NEUTROPHILS % 86.4 % (36.0-66.0); PLATELET COUNT, AUTOMATED 238 10^3/uL (150-450); RED BLOOD COUNT 5.14 10^6/uL (4.00-5.40); WHITE BLOOD COUNT 12.1 10^3/uL (4.0-10.0)
[2023-04-05 17:39] LABS: PROTHROMBIN TIME 12.9 SECONDS (12.5-14.5)
[2023-04-05 17:59] LABS: ALBUMIN 3.4 G/DL (3.2-5.2); ALKALINE PHOSPHATASE 114 U/L (46-116); ALT/SGPT 43 U/L (7.0-40); AST/SGOT 23 U/L (<34); BILIRUBIN,DIRECT 0.2 MG/DL (<0.4); BILIRUBIN,TOTAL 0.5 MG/DL (0.3-1.2); BLOOD UREA NITROGEN 21 MG/DL (9-23); CALCIUM LEVEL 9.9 MG/DL (8.3-10.6); CARBON DIOXIDE LEVEL 23 MMOL/L (20-31); CHLORIDE LEVEL 108 MMOL/L (98-107); CREATININE FOR GFR 0.79 MG/DL (0.55-1.30); GLOMERULAR FILTRATION RATE > 60.0 (>45); GLUCOSE, FASTING 268 MG/DL (74-106); POTASSIUM SERUM 5.1 MMOL/L (3.5-5.1); SODIUM LEVEL 140 MMOL/L (136-145); TOTAL PROTEIN 6.6 G/DL (5.7-8.2)
[2023-04-05] MEDS ORDERED: ISOVUE-370 76% 100ML VIAL As Ordered ONE (18:30)
[2023-04-05] MEDS ORDERED: GLUCOSE 4GM CHEW TABLET PO PRN (18:45)
[2023-04-05] MEDS ORDERED: DEXTROSE 50% 50ML SYRINGE IV PRN (18:45)
[2023-04-05] MEDS ORDERED: MED REC IN PROGRESS XX SCH (18:45)
[2023-04-05] MEDS ORDERED: GLUCAGON INJ 1MG VIAL SC PRN (18:45)
[2023-04-05 19:16] LABS: HEMOGLOBIN A1c 8.7 % (4.0-6.0)
[2023-04-05] MEDS ORDERED: FLUT50SP17 NARES (19:23)
[2023-04-05] MEDS ORDERED: LIDO1PAD TOP (19:23)
[2023-04-05] MEDS ORDERED: GNP1SOL5 AU (19:28)
[2023-04-05] MEDS ORDERED: [UNRECOGNIZED DRUG - CODE] (19:28)
[2023-04-05] MEDS ORDERED: LANTINJ4 SC (19:30)
[2023-04-05] MEDS ORDERED: PRED20TA PO (19:31)
[2023-04-05] MEDS ORDERED: INCR1INH IN (19:36)
[2023-04-05] MEDS ORDERED: HOME MED LIST COMPLETE! XX SCH (19:40)
[2023-04-05] MEDS: IPRATROPIUM 0.5MG/ALBUTEROL 2.5MG INH SOL UD 3ML (DUONEB) NEB SCH (20:00)
[2023-04-05 20:20] VITALS: BP 153/91; TEMP 96.4; O2SAT 94
[2023-04-05] MEDS: lisinopriL 5 MG TAB PO SCH (21:38)
[2023-04-05] MEDS: INSULIN LISPRO (NovoLOG) PER UNIT SC SCH (21:39)
[2023-04-05] MEDS: LEVEMIR (INSULIN DETEMIR) 1 UNITS/0.01ML SC SCH (21:43)
[2023-04-05] MEDS ORDERED: RAMELTEON 8 MG TAB (ROZEREM) PO PRN (22:00)
[2023-04-05] MEDS: HEPARIN SOD (PORCINE) 5000UNITS/ML 1ML VIAL/SYRINGE SC SCH (23:02)
[2023-04-06] VITALS: BP 132/82; TEMP 97.7; O2SAT 99
[2023-04-06] MEDS ORDERED: methylPREDNISolone 125MG 2ML VIAL IV SCH
[2023-04-06] MEDS: IPRATROPIUM 0.5MG/ALBUTEROL 2.5MG INH SOL UD 3ML (DUONEB) NEB SCH ×6 (00:35→19:53)
[2023-04-06 04:00] VITALS: BP 122/86; TEMP 97.2; O2SAT 97
[2023-04-06 05:11] LABS: BASO % 0.2 % (0.0-1.0); HEMATOCRIT 41.4 % (36.0-47.0); HEMOGLOBIN 13.3 g/dl (12.0-15.5); LYMPH # 0.9 10^3/uL (1.5-5.0); LYMPH % 5.8 % (24.0-44.0); MEAN CORPUSCULAR HEMOGLOBIN 26.9 pg (27.0-33.0); MEAN CORPUSCULAR HGB CONC 32.1 g/dl (32.0-36.5); MEAN CORPUSCULAR VOLUME 83.6 fl (80.0-96.0); MONO # 0.1 10^3/uL (0.0-0.8); MONO % 0.5 % (2.0-8.0); NEUTROPHILS % 92.6 % (36.0-66.0); PLATELET COUNT, AUTOMATED 234 10^3/uL (150-450); RED BLOOD COUNT 4.95 10^6/uL (4.00-5.40); WHITE BLOOD COUNT 15.1 10^3/uL (4.0-10.0)
[2023-04-06] MEDS: HEPARIN SOD (PORCINE) 5000UNITS/ML 1ML VIAL/SYRINGE SC SCH (05:21)
[2023-04-06 05:37] LABS: BLOOD UREA NITROGEN 20 MG/DL (9-23); CALCIUM LEVEL 9.8 MG/DL (8.3-10.6); CARBON DIOXIDE LEVEL 22 MMOL/L (20-31); CHLORIDE LEVEL 108 MMOL/L (98-107); CHOLESTEROL LEVEL 145 MG/DL (<200); CHOLESTEROL RISK RATIO 3.37 (<5); CREATININE FOR GFR 0.66 MG/DL (0.55-1.30); GLOMERULAR FILTRATION RATE > 60.0 (>45); GLUCOSE, FASTING 310 MG/DL (74-106); LDL CHOLESTEROL 69.8 MG/DL (<100); POTASSIUM SERUM 4.8 MMOL/L (3.5-5.1); SODIUM LEVEL 140 MMOL/L (136-145); TRIGLYCERIDES LEVEL 161 MG/DL (<150)
[2023-04-06] MEDS ORDERED: LIDOCAINE 5% (LIDODERM) PATCH TOP PRN (07:00)
[2023-04-06] MEDS: INSULIN LISPRO (NovoLOG) PER UNIT SC SCH ×5 (07:30→21:00)
[2023-04-06] MEDS: SYMBICORT 160/4.5MCG INHALER 6GM INH SCH ×2 (07:51→19:53)
[2023-04-06 08:29] VITALS: BP 114/62; TEMP 97.1; O2SAT 96
[2023-04-06] MEDS ORDERED: CARBAMIDE PEROXIDE 6.5% OTIC SOLN 15ML AU PRN (09:00)
[2023-04-06] MEDS ORDERED: MIRALAX *UNIT DOSE* 17GM PACKET PO PRN (09:00)
[2023-04-06] MEDS ORDERED: FLUTICASONE PROP 0.05% NASAL SPRAY 16 GM (FLONASE) PRN (09:00)
[2023-04-06] MEDS: methylPREDNISolone 40MG 1ML VIAL IV SCH ×2 (09:42→18:27)
[2023-04-06] MEDS: LEVEMIR (INSULIN DETEMIR) 1 UNITS/0.01ML SC SCH ×2 (09:43→21:35)
[2023-04-06] MEDS: NICOTINE 21MG/24HR 1 EA TRANSDERMAL TD SCH (09:44)
[2023-04-06] MEDS: PANTOPRAZOLE 40MG TAB (PROTONIX) PO SCH (09:45)
[2023-04-06] MEDS: MICONAZOLE 2 % POWDER (DESENEX) TOP SCH ×2 (09:45→21:35)
[2023-04-06] MEDS: ASPIRIN 81MG ENTERIC TABLET PO SCH (09:45)
[2023-04-06] MEDS: ATORVASTATIN 20 MG TAB PO SCH (09:45)
[2023-04-06] MEDS: FUROSEMIDE 40 MG TAB PO SCH (09:45)
[2023-04-06] MEDS: MELOXICAM (MOBIC) 7.5 MG TAB PO SCH (09:45)
[2023-04-06 11:33] VITALS: BP 119/73; TEMP 97.1; O2SAT 98
[2023-04-06] MEDS ORDERED: LEVEMIR (INSULIN DETEMIR) 1 UNITS/0.01ML SC ONE (12:30)
[2023-04-06 13:31] LABS: PROCALCITONIN <0.04 ng/ml
[2023-04-06] MEDS: ENOXAPARIN 40MG/0.4ML SYRINGE (J1650 PER 10MG) SC SCH (13:49)
[2023-04-06] MEDS ORDERED: CALCIUM CARBONATE 500 MG CHEW U/D PO PRN (14:20)
[2023-04-06 15:52] VITALS: BP 119/74; TEMP 96.1; O2SAT 97
[2023-04-06] MEDS: ACETAMINOPHEN TAB 650MG DOSE (2X325MG) PO PRN (18:33)
[2023-04-06 20:30] VITALS: BP 123/63; TEMP 97.1; O2SAT 94
[2023-04-06] MEDS: lisinopriL 5 MG TAB PO SCH (20:58)
[2023-04-06] MEDS ORDERED: INSULIN LISPRO (NovoLOG) PER UNIT SC ONE (22:00)
[2023-04-07 00:20] VITALS: BP 143/78; TEMP 97.4; O2SAT 95
[2023-04-07] MEDS ORDERED: LEVEMIR (INSULIN DETEMIR) 1 UNITS/0.01ML SC ONE ×2 (02:00→10:30)
[2023-04-07] MEDS ORDERED: INSULIN LISPRO (NovoLOG) PER UNIT SC ONE (02:00)
[2023-04-07] MEDS: methylPREDNISolone 40MG 1ML VIAL IV SCH ×2 (02:16→12:38)
[2023-04-07] MEDS: IPRATROPIUM 0.5MG/ALBUTEROL 2.5MG INH SOL UD 3ML (DUONEB) NEB SCH ×6 (04:00→20:32)
[2023-04-07 04:50] VITALS: BP 141/68; TEMP 96.7; O2SAT 96
[2023-04-07 07:14] LABS: HEMATOCRIT 40.5 % (36.0-47.0); HEMOGLOBIN 12.7 g/dl (12.0-15.5); MEAN CORPUSCULAR HEMOGLOBIN 26.4 pg (27.0-33.0); MEAN CORPUSCULAR HGB CONC 31.4 g/dl (32.0-36.5); MEAN CORPUSCULAR VOLUME 84.2 fl (80.0-96.0); PLATELET COUNT, AUTOMATED 232 10^3/uL (150-450); RED BLOOD COUNT 4.81 10^6/uL (4.00-5.40); WHITE BLOOD COUNT 17.6 10^3/uL (4.0-10.0)
[2023-04-07] MEDS: SYMBICORT 160/4.5MCG INHALER 6GM INH SCH ×2 (07:27→20:32)
[2023-04-07 07:37] LABS: ACETONE/KETONE 0.16 MMOL/L (0.02-0.27)
[2023-04-07 07:39] VITALS: BP 153/96; TEMP 96.7; O2SAT 94
[2023-04-07 07:39] LABS: ALBUMIN 3.1 G/DL (3.2-5.2); ALKALINE PHOSPHATASE 92 U/L (46-116); ALT/SGPT 35 U/L (7.0-40); AST/SGOT 11 U/L (<34); BILIRUBIN,TOTAL 0.3 MG/DL (0.3-1.2); BLOOD UREA NITROGEN 38 MG/DL (9-23); CALCIUM LEVEL 10.2 MG/DL (8.3-10.6); CARBON DIOXIDE LEVEL 24 MMOL/L (20-31); CHLORIDE LEVEL 106 MMOL/L (98-107); CREATININE FOR GFR 0.83 MG/DL (0.55-1.30); GLOMERULAR FILTRATION RATE > 60.0 (>45); GLUCOSE, FASTING 381 MG/DL (74-106); POTASSIUM SERUM 4.9 MMOL/L (3.5-5.1); SODIUM LEVEL 138 MMOL/L (136-145); TOTAL PROTEIN 5.8 G/DL (5.7-8.2)
[2023-04-07] MEDS: NS 1,000 ML IV SCH ×2 (08:24→22:12)
[2023-04-07] MEDS: INSULIN LISPRO (NovoLOG) PER UNIT SC SCH ×6 (08:25→22:12)
[2023-04-07] MEDS: ENOXAPARIN 40MG/0.4ML SYRINGE (J1650 PER 10MG) SC SCH (09:40)
[2023-04-07] MEDS: ATORVASTATIN 20 MG TAB PO SCH (09:41)
[2023-04-07] MEDS: FUROSEMIDE 40 MG TAB PO SCH (09:41)
[2023-04-07] MEDS: LEVEMIR (INSULIN DETEMIR) 1 UNITS/0.01ML SC SCH ×2 (09:41→22:02)
[2023-04-07] MEDS: ASPIRIN 81MG ENTERIC TABLET PO SCH (09:41)
[2023-04-07] MEDS: PANTOPRAZOLE 40MG TAB (PROTONIX) PO SCH (09:42)
[2023-04-07] MEDS: MELOXICAM (MOBIC) 7.5 MG TAB PO SCH (09:42)
[2023-04-07] MEDS: MICONAZOLE 2 % POWDER (DESENEX) TOP SCH ×2 (09:43→22:02)
[2023-04-07] MEDS: NICOTINE 21MG/24HR 1 EA TRANSDERMAL TD SCH (10:38)
[2023-04-07 11:49] VITALS: BP 140/74; TEMP 96.4; O2SAT 95
[2023-04-07 15:28] VITALS: BP 143/94; TEMP 96.4; O2SAT 97
[2023-04-07 20:00] VITALS: BP 154/91; TEMP 98.2; O2SAT 94
[2023-04-07] MEDS: lisinopriL 5 MG TAB PO SCH (22:02)
[2023-04-07] MEDS: ACETAMINOPHEN TAB 650MG DOSE (2X325MG) PO PRN (22:19)
[2023-04-08] MEDS: IPRATROPIUM 0.5MG/ALBUTEROL 2.5MG INH SOL UD 3ML (DUONEB) NEB SCH ×7 (00:10→23:11)
[2023-04-08 00:21] VITALS: BP 140/71; TEMP 97.6; O2SAT 97
[2023-04-08] MEDS: methylPREDNISolone 40MG 1ML VIAL IV SCH (01:45)
[2023-04-08 04:10] VITALS: BP 135/75; TEMP 97.6; O2SAT 98
[2023-04-08] MEDS: SYMBICORT 160/4.5MCG INHALER 6GM INH SCH ×2 (07:27→19:26)
[2023-04-08] MEDS: INSULIN LISPRO (NovoLOG) PER UNIT SC SCH ×7 (07:58→21:30)
[2023-04-08 08:00] VITALS: BP 141/80; TEMP 98.6; O2SAT 95
[2023-04-08] MEDS: ENOXAPARIN 40MG/0.4ML SYRINGE (J1650 PER 10MG) SC SCH (08:36)
[2023-04-08] MEDS: ATORVASTATIN 20 MG TAB PO SCH (08:37)
[2023-04-08] MEDS: FUROSEMIDE 40 MG TAB PO SCH (08:37)
[2023-04-08] MEDS: NICOTINE 21MG/24HR 1 EA TRANSDERMAL TD SCH (08:37)
[2023-04-08] MEDS: PANTOPRAZOLE 40MG TAB (PROTONIX) PO SCH (08:37)
[2023-04-08] MEDS: cefTRIAXone SOD 1 GM in D5W MINI-BAG PLUS 50 ML IV SCH (08:37)
[2023-04-08] MEDS: MELOXICAM (MOBIC) 7.5 MG TAB PO SCH (08:39)
[2023-04-08] MEDS: ASPIRIN 81MG ENTERIC TABLET PO SCH (08:39)
[2023-04-08] MEDS: predniSONE 20 MG TAB PO SCH (08:39)
[2023-04-08] MEDS: MICONAZOLE 2 % POWDER (DESENEX) TOP SCH ×2 (08:40→21:31)
[2023-04-08] MEDS: LEVEMIR (INSULIN DETEMIR) 1 UNITS/0.01ML SC SCH ×2 (08:40→21:30)
[2023-04-08 08:41] LABS: HEMATOCRIT 40.6 % (36.0-47.0); HEMOGLOBIN 12.7 g/dl (12.0-15.5); MEAN CORPUSCULAR HEMOGLOBIN 26.3 pg (27.0-33.0); MEAN CORPUSCULAR HGB CONC 31.3 g/dl (32.0-36.5); MEAN CORPUSCULAR VOLUME 84.2 fl (80.0-96.0); PLATELET COUNT, AUTOMATED 221 10^3/uL (150-450); RED BLOOD COUNT 4.82 10^6/uL (4.00-5.40); WHITE BLOOD COUNT 12.7 10^3/uL (4.0-10.0)
[2023-04-08 09:07] LABS: ALKALINE PHOSPHATASE 79 U/L (46-116); ALT/SGPT 48 U/L (7.0-40); AST/SGOT 21 U/L (<34); BILIRUBIN,TOTAL 0.4 MG/DL (0.3-1.2); BLOOD UREA NITROGEN 41 MG/DL (9-23); CALCIUM LEVEL 9.5 MG/DL (8.3-10.6); CARBON DIOXIDE LEVEL 27 MMOL/L (20-31); CHLORIDE LEVEL 107 MMOL/L (98-107); CREATININE FOR GFR 0.82 MG/DL (0.55-1.30); GLOMERULAR FILTRATION RATE > 60.0 (>45); GLUCOSE, FASTING 312 MG/DL (74-106); POTASSIUM SERUM 4.8 MMOL/L (3.5-5.1); SODIUM LEVEL 139 MMOL/L (136-145); TOTAL PROTEIN 5.7 G/DL (5.7-8.2)
[2023-04-08 15:54] VITALS: BP 136/72; TEMP 97.6; O2SAT 98
[2023-04-08] MEDS: ACETAMINOPHEN TAB 650MG DOSE (2X325MG) PO PRN (17:21)
[2023-04-08 19:42] VITALS: BP 144/86; TEMP 97; O2SAT 93
[2023-04-08 21:29] VITALS: BP 147/74
[2023-04-08] MEDS: lisinopriL 5 MG TAB PO SCH (21:29)
[2023-04-09] MEDS: IPRATROPIUM 0.5MG/ALBUTEROL 2.5MG INH SOL UD 3ML (DUONEB) NEB SCH ×3 (03:09→13:59)
[2023-04-09 04:16] VITALS: BP 121/74; TEMP 97.2; O2SAT 95
[2023-04-09 05:52] LABS: HEMATOCRIT 40.5 % (36.0-47.0); HEMOGLOBIN 12.8 g/dl (12.0-15.5); MEAN CORPUSCULAR HEMOGLOBIN 26.7 pg (27.0-33.0); MEAN CORPUSCULAR HGB CONC 31.6 g/dl (32.0-36.5); MEAN CORPUSCULAR VOLUME 84.4 fl (80.0-96.0); PLATELET COUNT, AUTOMATED 201 10^3/uL (150-450); WHITE BLOOD COUNT 13.1 10^3/uL (4.0-10.0)
[2023-04-09 06:22] LABS: ALBUMIN 2.8 G/DL (3.2-5.2); ALKALINE PHOSPHATASE 68 U/L (46-116); ALT/SGPT 45 U/L (7.0-40); AST/SGOT 10 U/L (<34); BILIRUBIN,TOTAL 0.3 MG/DL (0.3-1.2); BLOOD UREA NITROGEN 47 MG/DL (9-23); CALCIUM LEVEL 9.1 MG/DL (8.3-10.6); CARBON DIOXIDE LEVEL 28 MMOL/L (20-31); CHLORIDE LEVEL 107 MMOL/L (98-107); CREATININE FOR GFR 0.83 MG/DL (0.55-1.30); GLOMERULAR FILTRATION RATE > 60.0 (>45); GLUCOSE, FASTING 211 MG/DL (74-106); POTASSIUM SERUM 3.9 MMOL/L (3.5-5.1); SODIUM LEVEL 142 MMOL/L (136-145); TOTAL PROTEIN 5.3 G/DL (5.7-8.2)
[2023-04-09 07:14] VITALS: BP 120/69; TEMP 97; O2SAT 92
[2023-04-09] MEDS ORDERED: PRED20TA PO ×2 (07:26→16:29)
[2023-04-09] MEDS ORDERED: CEPH500C PO (07:26)
[2023-04-09] MEDS: INSULIN LISPRO (NovoLOG) PER UNIT SC SCH ×4 (07:30→12:00)
[2023-04-09] MEDS: SYMBICORT 160/4.5MCG INHALER 6GM INH SCH (07:40)
[2023-04-09] MEDS: LEVEMIR (INSULIN DETEMIR) 1 UNITS/0.01ML SC SCH (08:29)
[2023-04-09] MEDS: cefTRIAXone SOD 1 GM in D5W MINI-BAG PLUS 50 ML IV SCH (08:29)
[2023-04-09] MEDS: NICOTINE 21MG/24HR 1 EA TRANSDERMAL TD SCH (08:30)
[2023-04-09] MEDS: ATORVASTATIN 20 MG TAB PO SCH (08:31)
[2023-04-09] MEDS: ASPIRIN 81MG ENTERIC TABLET PO SCH (08:31)
[2023-04-09] MEDS: ENOXAPARIN 40MG/0.4ML SYRINGE (J1650 PER 10MG) SC SCH (08:31)
[2023-04-09] MEDS: PANTOPRAZOLE 40MG TAB (PROTONIX) PO SCH (08:31)
[2023-04-09] MEDS: MELOXICAM (MOBIC) 7.5 MG TAB PO SCH (08:31)
[2023-04-09] MEDS: FUROSEMIDE 40 MG TAB PO SCH (08:32)
[2023-04-09] MEDS: predniSONE 20 MG TAB PO SCH (08:32)
[2023-04-09] MEDS: MICONAZOLE 2 % POWDER (DESENEX) TOP SCH (08:32)
[2023-04-09] MEDS ORDERED: ALBU8.5H INH (16:29)
[2023-04-09] MEDS ORDERED: IPRA0.00 INH (16:29)
[2023-04-09] MEDS ORDERED: ALBU2.5V10 INH (16:29)
== END 2023-04-09 16:16 | disposition home or self-care (01) | DRG 190 ==
LOC: M ED 16:25 → EDBD 16:25 → M ED INP 18:41 → M PCU 20:30
PROVIDERS: ADMIT Internal Medicine; ATTEND Internal Medicine
DX: J44.1 Chronic obstructive pulmonary disease with (acute) exacerbation (principal); J96.21 Acute and chronic respiratory failure with hypoxia; I50.32 Chronic diastolic (congestive) heart failure; N39.0 Urinary tract infection, site not specified; I27.81 Cor pulmonale (chronic); E11.51 Type 2 diabetes mellitus with diabetic peripheral angiopathy without gangrene; E78.00 Pure hypercholesterolemia, unspecified; K21.9 Gastro-esophageal reflux disease without esophagitis; Z99.81 Dependence on supplemental oxygen; B96.29 Other Escherichia coli [E. coli] as the cause of diseases classified elsewhere; I27.20 Pulmonary hypertension, unspecified; G47.33 Obstructive sleep apnea (adult) (pediatric); Z88.2 Allergy status to sulfonamides; Z88.8 Allergy status to other drugs, medicaments and biological substances; Z88.0 Allergy status to penicillin; Z79.899 Other long term (current) drug therapy; Z79.82 Long term (current) 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; E11.65 Type 2 diabetes mellitus with hyperglycemia

== ENCOUNTER 2023-05-27 19:09 | Inpatient (IN) | payer MEDICARE ==
[~2023-05-27] VITALS: Ht 170.2 cm; Wt 115.3 kg
[~2023-05-27 19:09] MED LIST changes: +CEPH500C PO; +FLUTISP NARES; +GNP1SOL5 AU; +INCR1INH IN; +[UNRECOGNIZED DRUG - CODE]
[2023-05-27 19:27] LABS: ABG BASE EXCESS -1.2 (-2.0-2.0); ABG HCO3 24.8 MMOL/L (22.0-26.0); ABG O2 SATURATION 99.3 % (95.0-99.0); ABG PARTIAL PRESSURE CO2 46.1 mmHg (35.0-45.0); ABG PARTIAL PRESSURE O2 248.5 mmHg (75.0-100.0); ABG STANDARD HCO3 23.5 MMOL/L. (22.0-26.0); ABG TOTAL CO2 26.2 MMOL/L (23.0-31.0); ABG pH (ARTERIAL) 7.348 UNITS (7.350-7.450)
[2023-05-27 19:36] LABS: BASO # 0.1 10^3/uL (0.0-0.2); BASO % 0.6 % (0.0-1.0); EOS # 0.1 10^3/uL (0.0-0.5); EOS % 1.3 % (0.0-3.0); HEMATOCRIT 47.1 % (36.0-47.0); LYMPH # 2.8 10^3/uL (1.5-5.0); LYMPH % 24.7 % (24.0-44.0); MEAN CORPUSCULAR HEMOGLOBIN 27.6 pg (27.0-33.0); MEAN CORPUSCULAR HGB CONC 31.8 g/dl (32.0-36.5); MEAN CORPUSCULAR VOLUME 86.7 fl (80.0-96.0); MONO # 0.5 10^3/uL (0.0-0.8); MONO % 4.7 % (2.0-8.0); NEUTROPHILS # 7.4 10^3/uL (1.5-8.5); NEUTROPHILS % 66.2 % (36.0-66.0); PLATELET COUNT, AUTOMATED 218 10^3/uL (150-450); RED BLOOD COUNT 5.43 10^6/uL (4.00-5.40); WHITE BLOOD COUNT 11.2 10^3/uL (4.0-10.0)
[2023-05-27 20:02] LABS: CK-MB VALUE MASS < 1.0 NG/ML (<3.6)
[2023-05-27 20:11] LABS: PROCALCITONIN 0.04 ng/ml
[2023-05-27] MEDS ORDERED: NS IV ONE (20:15)
[2023-05-27] MEDS ORDERED: cefTRIAXone SOD 2 GM in D5W MINI-BAG PLUS 50 ML IV ONE (20:15)
[2023-05-27 20:47] LABS: ALBUMIN 3.6 G/DL (3.2-5.2); ALKALINE PHOSPHATASE 88 U/L (46-116); ALT/SGPT 39 U/L (7.0-40); BILIRUBIN,DIRECT < 0.1 MG/DL (<0.4); BILIRUBIN,TOTAL 0.3 MG/DL (0.3-1.2); BLOOD UREA NITROGEN 19 MG/DL (9-23); CALCIUM LEVEL 10.3 MG/DL (8.3-10.6); CARBON DIOXIDE LEVEL 25 MMOL/L (20-31); CHLORIDE LEVEL 104 MMOL/L (98-107); CREATININE FOR GFR 0.78 MG/DL (0.55-1.30); GLOMERULAR FILTRATION RATE > 60.0 (>45); POTASSIUM SERUM 4.3 MMOL/L (3.5-5.1); SODIUM LEVEL 141 MMOL/L (136-145); TOTAL PROTEIN 6.5 G/DL (5.7-8.2)
[2023-05-27 20:50] LABS: CPK CREATINE PHOSPHOKINASE 67 U/L (34-145); MB/CK RELATIVE INDEX 1.49 (< OR =4)
[2023-05-27 20:51] LABS: AST/SGOT 14 U/L (<34); GLUCOSE, FASTING 479 MG/DL (74-106)
[2023-05-27 20:57] VITALS: O2SAT 93
[2023-05-27] MEDS ORDERED: HumuLIN R (REGULAR) INSULIN (NovoLIN R) **100U/ML** PER UNIT SC ONE (21:00)
[2023-05-27] MEDS ORDERED: ISOVUE-370 76% 100ML VIAL As Ordered ONE (21:04)
[2023-05-27] MEDS ORDERED: ONDANSETRON 4MG 2ML VIAL IV ONE (21:05)
[2023-05-27] MEDS: IPRATROPIUM 0.5MG/ALBUTEROL 2.5MG INH SOL UD 3ML (DUONEB) NEB PRN (21:30)
[2023-05-27 22:16] LABS: CK-MB VALUE MASS < 1.0 NG/ML (<3.6)
[2023-05-27 22:20] LABS: CPK CREATINE PHOSPHOKINASE 65 U/L (34-145); MB/CK RELATIVE INDEX 1.53 (< OR =4)
[2023-05-27] MEDS ORDERED: HOME MED LIST COMPLETE! XX SCH (23:20)
[2023-05-27] MEDS ORDERED: ACETAMINOPHEN TAB 650MG DOSE (2X325MG) PO PRN (23:35)
[2023-05-27] MEDS ORDERED: ONDANSETRON 4MG TAB PO PRN (23:35)
[2023-05-27] MEDS ORDERED: ALBUTEROL SULFATE 2.5MG/0.5ML INH NEB SOLN NEB PRN (23:35)
[2023-05-27] MEDS ORDERED: NS 1,000 ML IV SCH (23:35)
[2023-05-27] MEDS ORDERED: GLUCAGON INJ 1MG VIAL SC PRN (23:35)
[2023-05-27] MEDS ORDERED: DEXTROSE 50% 50ML SYRINGE IV PRN (23:35)
[2023-05-27] MEDS ORDERED: GLUCOSE 4GM CHEW TABLET PO PRN (23:35)
[2023-05-28] MEDS ORDERED: methylPREDNISolone 40MG 1ML VIAL IV SCH
[2023-05-28] MEDS: IPRATROPIUM 0.5MG/ALBUTEROL 2.5MG INH SOL UD 3ML (DUONEB) NEB SCH ×4 (01:42→18:58)
[2023-05-28 02:25] VITALS: BP 146/81; TEMP 96.2; O2SAT 96
[2023-05-28] MEDS ORDERED: HumuLIN R (REGULAR) INSULIN (NovoLIN R) **100U/ML** PER UNIT IV STA (02:34)
[2023-05-28] MEDS ORDERED: NS 1,000 ML IV ONE (02:35)
[2023-05-28 04:00] VITALS: BP 138/81; TEMP 94.6; O2SAT 97
[2023-05-28] MEDS: HEPARIN SOD (PORCINE) 5000UNITS/ML 1ML VIAL/SYRINGE SC SCH ×3 (06:38→21:33)
[2023-05-28 07:58] LABS: BASO % 0.3 % (0.0-1.0); HEMATOCRIT 42.5 % (36.0-47.0); HEMOGLOBIN 13.2 g/dl (12.0-15.5); LYMPH # 0.6 10^3/uL (1.5-5.0); LYMPH % 5.1 % (24.0-44.0); MEAN CORPUSCULAR HEMOGLOBIN 26.8 pg (27.0-33.0); MEAN CORPUSCULAR HGB CONC 31.1 g/dl (32.0-36.5); MEAN CORPUSCULAR VOLUME 86.4 fl (80.0-96.0); MONO # 0.1 10^3/uL (0.0-0.8); MONO % 0.5 % (2.0-8.0); NEUTROPHILS # 11.3 10^3/uL (1.5-8.5); NEUTROPHILS % 92.5 % (36.0-66.0); PLATELET COUNT, AUTOMATED 178 10^3/uL (150-450); RED BLOOD COUNT 4.92 10^6/uL (4.00-5.40); WHITE BLOOD COUNT 12.2 10^3/uL (4.0-10.0)
[2023-05-28 08:00] VITALS: BP 131/70; TEMP 96.4; O2SAT 94
[2023-05-28] MEDS: SYMBICORT 160/4.5MCG INHALER 6GM INH SCH ×2 (08:07→18:58)
[2023-05-28 08:31] LABS: BLOOD UREA NITROGEN 16 MG/DL (9-23); CARBON DIOXIDE LEVEL 22 MMOL/L (20-31); CHLORIDE LEVEL 109 MMOL/L (98-107); CREATININE FOR GFR 0.66 MG/DL (0.55-1.30); GLOMERULAR FILTRATION RATE > 60.0 (>45); GLUCOSE, FASTING 422 MG/DL (74-106); SODIUM LEVEL 140 MMOL/L (136-145)
[2023-05-28] MEDS: ASPIRIN 81MG ENTERIC TABLET PO SCH (09:06)
[2023-05-28] MEDS: ATORVASTATIN 20 MG TAB PO SCH (09:06)
[2023-05-28] MEDS: PANTOPRAZOLE 40MG TAB (PROTONIX) PO SCH (09:06)
[2023-05-28] MEDS: INSULIN LISPRO (NovoLOG) PER UNIT SC SCH ×3 (09:07→18:09)
[2023-05-28] MEDS: LEVEMIR (INSULIN DETEMIR) 1 UNITS/0.01ML SC SCH ×2 (09:08→21:34)
[2023-05-28] MEDS: NICOTINE 21MG/24HR 1 EA TRANSDERMAL TD SCH (09:11)
[2023-05-28] MEDS ORDERED: guaiFENesin ER TABLET 600 MG TAB PO PRN (09:40)
[2023-05-28] MEDS: FUROSEMIDE 40 MG TAB PO SCH (11:50)
[2023-05-28] MEDS: predniSONE 20 MG TAB PO SCH (11:50)
[2023-05-28 12:00] VITALS: BP 131/71; TEMP 96.8; O2SAT 95
[2023-05-28] MEDS: TIOTROPIUM INHALER/CAPSULE (SPIRIVA) INH SCH (13:28)
[2023-05-28 16:00] VITALS: BP 141/75; TEMP 97; O2SAT 94
[2023-05-28 20:00] VITALS: BP 130/68; TEMP 97.3; O2SAT 93
[2023-05-28] MEDS ORDERED: INSULIN LISPRO (NovoLOG) PER UNIT SC ONE (20:10)
[2023-05-28] MEDS ORDERED: INSULIN LISPRO (NovoLOG) PER UNIT SC SCH (21:00)
[2023-05-29 00:19] VITALS: BP 140/72; TEMP 97.7; O2SAT 93
[2023-05-29] MEDS: IPRATROPIUM 0.5MG/ALBUTEROL 2.5MG INH SOL UD 3ML (DUONEB) NEB SCH ×4 (01:49→19:55)
[2023-05-29 04:00] VITALS: BP 125/64; TEMP 98.3; O2SAT 94
[2023-05-29 05:50] LABS: BASO % 0.2 % (0.0-1.0); EOS % 0.1 % (0.0-3.0); HEMOGLOBIN 12.8 g/dl (12.0-15.5); LYMPH # 1.1 10^3/uL (1.5-5.0); LYMPH % 8.8 % (24.0-44.0); MEAN CORPUSCULAR HGB CONC 31.2 g/dl (32.0-36.5); MEAN CORPUSCULAR VOLUME 86.5 fl (80.0-96.0); MONO # 0.6 10^3/uL (0.0-0.8); MONO % 4.8 % (2.0-8.0); NEUTROPHILS # 10.6 10^3/uL (1.5-8.5); NEUTROPHILS % 84.6 % (36.0-66.0); PLATELET COUNT, AUTOMATED 169 10^3/uL (150-450); RED BLOOD COUNT 4.74 10^6/uL (4.00-5.40); WHITE BLOOD COUNT 12.5 10^3/uL (4.0-10.0)
[2023-05-29 06:14] LABS: BLOOD UREA NITROGEN 26 MG/DL (9-23); CALCIUM LEVEL 10.1 MG/DL (8.3-10.6); CARBON DIOXIDE LEVEL 25 MMOL/L (20-31); CHLORIDE LEVEL 107 MMOL/L (98-107); GLOMERULAR FILTRATION RATE > 60.0 (>45); GLUCOSE, FASTING 433 MG/DL (74-106); POTASSIUM SERUM 4.1 MMOL/L (3.5-5.1); SODIUM LEVEL 140 MMOL/L (136-145)
[2023-05-29] MEDS: HEPARIN SOD (PORCINE) 5000UNITS/ML 1ML VIAL/SYRINGE SC SCH ×3 (06:21→21:57)
[2023-05-29] MEDS ORDERED: HumuLIN R (REGULAR) INSULIN (NovoLIN R) **100U/ML** PER UNIT IV STA (06:30)
[2023-05-29 08:00] VITALS: BP 123/62; TEMP 97; O2SAT 98
[2023-05-29] MEDS: LEVEMIR (INSULIN DETEMIR) 1 UNITS/0.01ML SC SCH ×2 (08:12→21:57)
[2023-05-29] MEDS: INSULIN LISPRO (NovoLOG) PER UNIT SC SCH ×6 (08:12→18:22)
[2023-05-29] MEDS: ASPIRIN 81MG ENTERIC TABLET PO SCH (08:15)
[2023-05-29] MEDS: ATORVASTATIN 20 MG TAB PO SCH (08:15)
[2023-05-29] MEDS: FUROSEMIDE 40 MG TAB PO SCH (08:15)
[2023-05-29] MEDS: NICOTINE 21MG/24HR 1 EA TRANSDERMAL TD SCH (08:15)
[2023-05-29] MEDS: predniSONE 20 MG TAB PO SCH (08:15)
[2023-05-29] MEDS: PANTOPRAZOLE 40MG TAB (PROTONIX) PO SCH (08:16)
[2023-05-29] MEDS: SYMBICORT 160/4.5MCG INHALER 6GM INH SCH ×2 (09:04→19:55)
[2023-05-29] MEDS: TIOTROPIUM INHALER/CAPSULE (SPIRIVA) INH SCH (09:04)
[2023-05-29 12:00] VITALS: BP 122/71; TEMP 96.9; O2SAT 96
[2023-05-29] MEDS ORDERED: INSULIN LISPRO (NovoLOG) PER UNIT SC ONE (15:25)
[2023-05-29] MEDS: DAPAGLIFLOZIN PROPANEDIOL 10MG TABLET (FARXIGA) PO SCH (15:44)
[2023-05-29 16:00] VITALS: BP 135/78; TEMP 98.2; O2SAT 94
[2023-05-29] MEDS ORDERED: INSULIN LISPRO (NovoLOG) PER UNIT SC SCH (21:00)
[2023-05-29] MEDS: NYSTATIN 100,000 UNITS/GM TOPICAL PWD 15GM TOP SCH (21:59)
[2023-05-29] MEDS: MIRALAX *UNIT DOSE* 17GM PACKET PO SCH (21:59)
[2023-05-30 00:22] VITALS: BP 128/73; TEMP 98.2; O2SAT 94
[2023-05-30] MEDS: IPRATROPIUM 0.5MG/ALBUTEROL 2.5MG INH SOL UD 3ML (DUONEB) NEB SCH ×2 (02:09→07:59)
[2023-05-30 05:59] LABS: BLOOD UREA NITROGEN 32 MG/DL (9-23); CALCIUM LEVEL 9.8 MG/DL (8.3-10.6); CARBON DIOXIDE LEVEL 29 MMOL/L (20-31); CHLORIDE LEVEL 109 MMOL/L (98-107); CREATININE FOR GFR 0.74 MG/DL (0.55-1.30); GLOMERULAR FILTRATION RATE > 60.0 (>45); GLUCOSE, FASTING 163 MG/DL (74-106); POTASSIUM SERUM 3.9 MMOL/L (3.5-5.1); SODIUM LEVEL 145 MMOL/L (136-145)
[2023-05-30] MEDS: HEPARIN SOD (PORCINE) 5000UNITS/ML 1ML VIAL/SYRINGE SC SCH (06:01)
[2023-05-30] MEDS: INSULIN LISPRO (NovoLOG) PER UNIT SC SCH ×3 (07:30→12:15)
[2023-05-30 07:51] VITALS: BP 122/62; TEMP 97; O2SAT 98
[2023-05-30] MEDS: TIOTROPIUM INHALER/CAPSULE (SPIRIVA) INH SCH (07:59)
[2023-05-30] MEDS: SYMBICORT 160/4.5MCG INHALER 6GM INH SCH (07:59)
[2023-05-30] MEDS: NICOTINE 21MG/24HR 1 EA TRANSDERMAL TD SCH (09:15)
[2023-05-30] MEDS: MIRALAX *UNIT DOSE* 17GM PACKET PO SCH (09:15)
[2023-05-30] MEDS: ATORVASTATIN 20 MG TAB PO SCH (09:16)
[2023-05-30] MEDS: LEVEMIR (INSULIN DETEMIR) 1 UNITS/0.01ML SC SCH (09:16)
[2023-05-30] MEDS: DAPAGLIFLOZIN PROPANEDIOL 10MG TABLET (FARXIGA) PO SCH (09:17)
[2023-05-30] MEDS: predniSONE 20 MG TAB PO SCH (09:17)
[2023-05-30] MEDS: FUROSEMIDE 40 MG TAB PO SCH (09:17)
[2023-05-30] MEDS: PANTOPRAZOLE 40MG TAB (PROTONIX) PO SCH (09:17)
[2023-05-30] MEDS: ASPIRIN 81MG ENTERIC TABLET PO SCH (09:17)
[2023-05-30] MEDS: NYSTATIN 100,000 UNITS/GM TOPICAL PWD 15GM TOP SCH (09:22)
[2023-05-30] MEDS ORDERED: METF-838 PO (11:08)
[2023-05-30] MEDS ORDERED: PRED20TA PO ×2 (11:08→11:19)
[2023-05-30] MEDS ORDERED: IPRA0.00 INH (11:19)
== END 2023-05-30 13:22 | disposition home health service (06) | DRG 189 ==
LOC: M ED 19:09 → EDBD 19:09 → M ED INP 23:28 → M PCU 05-28 02:03
PROVIDERS: ADMIT Internal Medicine; ATTEND Internal Medicine
DX: J96.21 Acute and chronic respiratory failure with hypoxia (principal); J44.1 Chronic obstructive pulmonary disease with (acute) exacerbation; E87.20 Acidosis, unspecified; I50.32 Chronic diastolic (congestive) heart failure; E66.2 Morbid (severe) obesity with alveolar hypoventilation; K21.9 Gastro-esophageal reflux disease without esophagitis; K44.9 Diaphragmatic hernia without obstruction or gangrene; L30.4 Erythema intertrigo; I11.0 Hypertensive heart disease with heart failure; E78.5 Hyperlipidemia, unspecified; E11.65 Type 2 diabetes mellitus with hyperglycemia; Z93.3 Colostomy status; Z87.891 Personal history of nicotine dependence; Z90.49 Acquired absence of other specified parts of digestive tract; Z79.82 Long term (current) 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; Z79.4 Long term (current) use of insulin; Z79.899 Other long term (current) drug therapy; Z88.0 Allergy status to penicillin; Z88.1 Allergy status to other antibiotic agents; Z88.2 Allergy status to sulfonamides; Z88.8 Allergy status to other drugs, medicaments and biological substances; Z20.822 Contact with and (suspected) exposure to COVID-19; Z99.81 Dependence on supplemental oxygen

== ENCOUNTER 2023-07-06 12:05 | Inpatient (IN) | payer MEDICARE ==
[~2023-07-06] VITALS: Ht 170.2 cm; Wt 111.4 kg
[~2023-07-06 12:05] MED LIST changes: +GUAI100S51 PO; -INCR1INH IN; +OSEL75CA2 PO
[2023-07-06] MEDS: methylPREDNISolone 125MG 2ML VIAL IV ONE (12:25)
[2023-07-06] MEDS ORDERED: ONDANSETRON 4MG 2ML VIAL IV ONE (12:25)
[2023-07-06] MEDS: NS 1,000 ML IV SCH (12:25)
[2023-07-06] MEDS: METOCLOPRAMIDE INJ 10MG/2ML VIAL IV ONE (12:55)
[2023-07-06 13:02] LABS: BASO % 0.3 % (0.0-1.0); EOS % 0.2 % (0.0-3.0); HEMATOCRIT 41.4 % (36.0-47.0); HEMOGLOBIN 12.8 g/dl (12.0-15.5); LYMPH # 0.3 10^3/uL (1.5-5.0); LYMPH % 2.8 % (24.0-44.0); MEAN CORPUSCULAR HEMOGLOBIN 26.3 pg (27.0-33.0); MEAN CORPUSCULAR HGB CONC 30.9 g/dl (32.0-36.5); MEAN CORPUSCULAR VOLUME 85.2 fl (80.0-96.0); MONO # 0.3 10^3/uL (0.0-0.8); MONO % 3.4 % (2.0-8.0); NEUTROPHILS # 9.1 10^3/uL (1.5-8.5); NEUTROPHILS % 92.4 % (36.0-66.0); PLATELET COUNT, AUTOMATED 233 10^3/uL (150-450); RED BLOOD COUNT 4.86 10^6/uL (4.00-5.40); WHITE BLOOD COUNT 9.9 10^3/uL (4.0-10.0)
[2023-07-06 13:27] LABS: LIPASE 30 U/L (12-53)
[2023-07-06 13:29] LABS: ALBUMIN 3.1 G/DL (3.2-5.2); ALKALINE PHOSPHATASE 101 U/L (46-116); ALT/SGPT 37 U/L (7.0-40); AST/SGOT 23 U/L (<34); BILIRUBIN,DIRECT 0.5 MG/DL (<0.4); BILIRUBIN,TOTAL 1.2 MG/DL (0.3-1.2); BLOOD UREA NITROGEN 20 MG/DL (9-23); CALCIUM LEVEL 9.1 MG/DL (8.3-10.6); CARBON DIOXIDE LEVEL 24 MMOL/L (20-31); CHLORIDE LEVEL 104 MMOL/L (98-107); CREATININE FOR GFR 0.87 MG/DL (0.55-1.30); GLOMERULAR FILTRATION RATE > 60.0 (>45); GLUCOSE, FASTING 308 MG/DL (74-106); POTASSIUM SERUM 4.9 MMOL/L (3.5-5.1); SODIUM LEVEL 135 MMOL/L (136-145); TOTAL PROTEIN 6.5 G/DL (5.7-8.2)
[2023-07-06 13:30] LABS: THYROXINE (T4) 7.6 UG/DL (4.5-10.9)
[2023-07-06 13:31] LABS: THYROID STIMULATING HORMONE 0.641 uIU/ML (0.55-4.78)
[2023-07-06] MEDS: IBUPROFEN 600MG TAB PO ONE (13:45)
[2023-07-06] MEDS ORDERED: ISOVUE-370 76% 100ML VIAL As Ordered ONE (13:57)
[2023-07-06] MEDS: cefTRIAXone SOD 2 GM in D5W MINI-BAG PLUS 50 ML IV ONE (14:40)
[2023-07-06] MEDS ORDERED: MED REC IN PROGRESS XX SCH (15:20)
[2023-07-06] MEDS ORDERED: HOME MED LIST COMPLETE! XX SCH (16:40)
[2023-07-06 17:20] VITALS: BP 144/76; TEMP 97.5; O2SAT 93
[2023-07-06 17:32] LABS: APPEARANCE, URINE HAZY (CLEAR); BACTERIA, URINE AUTO 1+ (NEGATIVE); BILIRUBIN, URINE AUTO NEGATIVE (NEGATIVE); BLOOD, URINE BLOOD 2+ (NEGATIVE); COLOR, URINE YELLOW (YELLOW); GLUCOSE, URINE (UA) AUTO 3+ mg/dL (NEGATIVE); KETONE, URINE AUTO 1+ mg/dL (NEGATIVE); LEUKOCYTE ESTERASE, URINE AUTO 2+ (NEGATIVE); MUCUS, URINE SMALL (NEGATIVE); NITRITE, URINE AUTO POSITIVE (NEGATIVE); PROTEIN, URINE AUTO NEGATIVE (NEGATIVE); RBC, URINE AUTO 28 /HPF (0-3); SQUAMOUS EPITHELIAL CELL UR AU 2 /HPF (0-6); UROBILINOGEN, URINE AUTO 0.2 mg/dL (0.0-2.0); WBC, URINE AUTO 64 /HPF (0-3)
[2023-07-06] MEDS ORDERED: GLUCOSE 4GM CHEW TABLET PO PRN (17:55)
[2023-07-06] MEDS ORDERED: DEXTROSE 50% 50ML SYRINGE IV PRN (17:55)
[2023-07-06] MEDS ORDERED: GLUCAGON INJ 1MG VIAL SC PRN (17:55)
[2023-07-06] MEDS ORDERED: IPRATROPIUM 0.5MG/ALBUTEROL 2.5MG INH SOL UD 3ML (DUONEB) NEB PRN (18:00)
[2023-07-06] MEDS ORDERED: guaiFENesin SYRUP 200MG 10ML UDC PO PRN (18:00)
[2023-07-06] MEDS: SYMBICORT 160/4.5MCG INHALER 6GM INH SCH (19:34)
[2023-07-06] MEDS: IPRATROPIUM 0.5MG/ALBUTEROL 2.5MG INH SOL UD 3ML (DUONEB) NEB SCH (19:35)
[2023-07-06 19:37] VITALS: O2SAT 100
[2023-07-06] MEDS: ATORVASTATIN 20 MG TAB PO SCH (20:04)
[2023-07-06] MEDS: LEVEMIR (INSULIN DETEMIR) 1 UNITS/0.01ML SC SCH (20:05)
[2023-07-06] MEDS: INSULIN LISPRO (NovoLOG) PER UNIT SC SCH (20:05)
[2023-07-06 21:27] VITALS: BP 119/73; TEMP 97.8; O2SAT 98
[2023-07-06 23:07] VITALS: O2SAT 96
[2023-07-07 03:00] VITALS: O2SAT 96
[2023-07-07] MEDS: MIRALAX *UNIT DOSE* 17GM PACKET PO PRN (04:43)
[2023-07-07 05:24] VITALS: BP 121/83; TEMP 97.9; O2SAT 95
[2023-07-07 07:37] LABS: BASO % 0.3 % (0.0-1.0); EOS % 0.1 % (0.0-3.0); HEMATOCRIT 37.2 % (36.0-47.0); HEMOGLOBIN 12.1 g/dl (12.0-15.5); LYMPH # 0.8 10^3/uL (1.5-5.0); LYMPH % 9.2 % (24.0-44.0); MEAN CORPUSCULAR HEMOGLOBIN 27.3 pg (27.0-33.0); MEAN CORPUSCULAR HGB CONC 32.5 g/dl (32.0-36.5); MEAN CORPUSCULAR VOLUME 83.8 fl (80.0-96.0); MONO # 0.6 10^3/uL (0.0-0.8); MONO % 7.1 % (2.0-8.0); NEUTROPHILS # 7.1 10^3/uL (1.5-8.5); NEUTROPHILS % 81.8 % (36.0-66.0); PLATELET COUNT, AUTOMATED 209 10^3/uL (150-450); RED BLOOD COUNT 4.44 10^6/uL (4.00-5.40); WHITE BLOOD COUNT 8.7 10^3/uL (4.0-10.0)
[2023-07-07] MEDS: INSULIN LISPRO (NovoLOG) PER UNIT SC SCH ×2 (07:43→17:40)
[2023-07-07] MEDS: TIOTROPIUM INHALER/CAPSULE (SPIRIVA) INH SCH (07:56)
[2023-07-07 08:04] LABS: BLOOD UREA NITROGEN 22 MG/DL (9-23); CALCIUM LEVEL 9.4 MG/DL (8.3-10.6); CARBON DIOXIDE LEVEL 26 MMOL/L (20-31); CHLORIDE LEVEL 107 MMOL/L (98-107); CREATININE FOR GFR 0.72 MG/DL (0.55-1.30); GLOMERULAR FILTRATION RATE > 60.0 (>45); GLUCOSE, FASTING 364 MG/DL (74-106); POTASSIUM SERUM 4.6 MMOL/L (3.5-5.1); SODIUM LEVEL 138 MMOL/L (136-145)
[2023-07-07] MEDS: MELOXICAM (MOBIC) 7.5 MG TAB PO SCH (08:52)
[2023-07-07] MEDS: ASPIRIN 81MG ENTERIC TABLET PO SCH (08:52)
[2023-07-07] MEDS: PANTOPRAZOLE 40MG TAB (PROTONIX) PO SCH (08:52)
[2023-07-07] MEDS: FUROSEMIDE 40 MG TAB PO SCH (08:52)
[2023-07-07] MEDS: ENOXAPARIN 40MG/0.4ML SYRINGE (J1650 PER 10MG) SC SCH (08:53)
[2023-07-07] MEDS: NICOTINE 21MG/24HR 1 EA TRANSDERMAL TD SCH (08:54)
[2023-07-07] MEDS: LIDOCAINE 5% (LIDODERM) PATCH TD ONE (11:13)
[2023-07-07] MEDS: guaiFENesin SYRUP 200MG 10ML UDC PO ONE (13:12)
[2023-07-07] MEDS: NYSTATIN 100,000 UNITS/GM TOPICAL PWD 15GM TOP SCH (13:13)
[2023-07-07 14:00] VITALS: BP 142/72; TEMP 97.5; O2SAT 94
[2023-07-07] MEDS: cefTRIAXone SOD 2 GM in D5W MINI-BAG PLUS 50 ML IV SCH (16:08)
[2023-07-07] MEDS: INSULIN LISPRO (NovoLOG) PER UNIT SC ONE (16:08)
[2023-07-07 21:13] VITALS: BP 143/76; TEMP 97.7; O2SAT 95
[2023-07-08] MEDS: ACETAMINOPHEN TAB 650MG DOSE (2X325MG) PO PRN (00:05)
[2023-07-08 05:51] VITALS: BP 142/78; TEMP 97.9; O2SAT 95
[2023-07-08 06:12] LABS: BASO % 0.4 % (0.0-1.0); EOS # 0.2 10^3/uL (0.0-0.5); EOS % 2.2 % (0.0-3.0); HEMATOCRIT 36.3 % (36.0-47.0); HEMOGLOBIN 11.6 g/dl (12.0-15.5); LYMPH # 1.3 10^3/uL (1.5-5.0); LYMPH % 15.5 % (24.0-44.0); MEAN CORPUSCULAR HEMOGLOBIN 26.7 pg (27.0-33.0); MEAN CORPUSCULAR VOLUME 83.6 fl (80.0-96.0); MONO # 0.7 10^3/uL (0.0-0.8); MONO % 8.3 % (2.0-8.0); NEUTROPHILS # 6.1 10^3/uL (1.5-8.5); NEUTROPHILS % 72.6 % (36.0-66.0); PLATELET COUNT, AUTOMATED 224 10^3/uL (150-450); RED BLOOD COUNT 4.34 10^6/uL (4.00-5.40); WHITE BLOOD COUNT 8.3 10^3/uL (4.0-10.0)
[2023-07-08 06:32] LABS: BLOOD UREA NITROGEN 28 MG/DL (9-23); CARBON DIOXIDE LEVEL 28 MMOL/L (20-31); CHLORIDE LEVEL 109 MMOL/L (98-107); CREATININE FOR GFR 0.78 MG/DL (0.55-1.30); GLOMERULAR FILTRATION RATE > 60.0 (>45); GLUCOSE, FASTING 206 MG/DL (74-106); POTASSIUM SERUM 3.8 MMOL/L (3.5-5.1); SODIUM LEVEL 145 MMOL/L (136-145)
[2023-07-08] MEDS: MEROPENEM INJ 1 GM in IV 1 EA IV SCH (08:35)
[2023-07-08] MEDS: INSULIN LISPRO (NovoLOG) PER UNIT SC SCH ×2 (09:13→12:55)
[2023-07-08] MEDS ORDERED: VANCOMYCIN HCL 1,000 MG, VIAL MATE ADAPTER 1 EACH in D5W 250 ML IV SCH (12:35)
[2023-07-08 14:00] VITALS: BP 127/78; TEMP 97.3; O2SAT 94
[2023-07-08] MEDS: VANCOMYCIN HCL 1,000 MG, VIAL MATE ADAPTER 1 EACH in D5W 250 ML IV ONE ×2 (14:48→16:00)
[2023-07-08] MEDS: METOCLOPRAMIDE INJ 10MG/2ML VIAL IV PRN (18:00)
[2023-07-08 20:24] VITALS: BP 105/69; TEMP 97.5; O2SAT 96
[2023-07-08] MEDS: VANCOMYCIN HCL 1,000 MG, VIAL MATE ADAPTER 1 EACH in D5W 250 ML IV SCH (22:09)
[2023-07-09 05:04] VITALS: BP 116/76; TEMP 97.5; O2SAT 94
[2023-07-09 06:46] LABS: BASO % 0.6 % (0.0-1.0); EOS # 0.2 10^3/uL (0.0-0.5); EOS % 3.1 % (0.0-3.0); HEMATOCRIT 38.7 % (36.0-47.0); HEMOGLOBIN 12.2 g/dl (12.0-15.5); LYMPH # 1.7 10^3/uL (1.5-5.0); LYMPH % 25.6 % (24.0-44.0); MEAN CORPUSCULAR HEMOGLOBIN 26.4 pg (27.0-33.0); MEAN CORPUSCULAR HGB CONC 31.5 g/dl (32.0-36.5); MEAN CORPUSCULAR VOLUME 83.8 fl (80.0-96.0); MONO # 0.6 10^3/uL (0.0-0.8); MONO % 9.4 % (2.0-8.0); NEUTROPHILS % 59.2 % (36.0-66.0); PLATELET COUNT, AUTOMATED 223 10^3/uL (150-450); RED BLOOD COUNT 4.62 10^6/uL (4.00-5.40); WHITE BLOOD COUNT 6.7 10^3/uL (4.0-10.0)
[2023-07-09 07:07] LABS: BLOOD UREA NITROGEN 20 MG/DL (9-23); CALCIUM LEVEL 8.9 MG/DL (8.3-10.6); CARBON DIOXIDE LEVEL 31 MMOL/L (20-31); CHLORIDE LEVEL 109 MMOL/L (98-107); CREATININE FOR GFR 0.73 MG/DL (0.55-1.30); GLOMERULAR FILTRATION RATE > 60.0 (>45); GLUCOSE, FASTING 108 MG/DL (74-106); POTASSIUM SERUM 3.4 MMOL/L (3.5-5.1); SODIUM LEVEL 144 MMOL/L (136-145)
[2023-07-09 14:00] VITALS: BP 104/59; TEMP 98.1; O2SAT 89
[2023-07-09 20:25] VITALS: BP 119/78; TEMP 97.3; O2SAT 91
[2023-07-10 05:10] VITALS: BP 118/77; TEMP 97.7; O2SAT 95
[2023-07-10 05:57] LABS: BASO % 0.6 % (0.0-1.0); EOS # 0.2 10^3/uL (0.0-0.5); EOS % 2.7 % (0.0-3.0); HEMATOCRIT 36.7 % (36.0-47.0); HEMOGLOBIN 11.6 g/dl (12.0-15.5); LYMPH % 28.3 % (24.0-44.0); MEAN CORPUSCULAR HEMOGLOBIN 26.2 pg (27.0-33.0); MEAN CORPUSCULAR HGB CONC 31.6 g/dl (32.0-36.5); MEAN CORPUSCULAR VOLUME 82.8 fl (80.0-96.0); MONO # 0.5 10^3/uL (0.0-0.8); MONO % 6.8 % (2.0-8.0); NEUTROPHILS # 4.1 10^3/uL (1.5-8.5); NEUTROPHILS % 59.3 % (36.0-66.0); PLATELET COUNT, AUTOMATED 207 10^3/uL (150-450); RED BLOOD COUNT 4.43 10^6/uL (4.00-5.40); WHITE BLOOD COUNT 6.9 10^3/uL (4.0-10.0)
[2023-07-10 06:23] LABS: BLOOD UREA NITROGEN 24 MG/DL (9-23); CALCIUM LEVEL 9.1 MG/DL (8.3-10.6); CARBON DIOXIDE LEVEL 28 MMOL/L (20-31); CHLORIDE LEVEL 107 MMOL/L (98-107); CREATININE FOR GFR 0.74 MG/DL (0.55-1.30); GLOMERULAR FILTRATION RATE > 60.0 (>45); GLUCOSE, FASTING 215 MG/DL (74-106); POTASSIUM SERUM 3.8 MMOL/L (3.5-5.1); SODIUM LEVEL 142 MMOL/L (136-145)
[2023-07-10] MEDS: VANCOMYCIN HCL 1,000 MG, VIAL MATE ADAPTER 1 EACH in D5W 250 ML IV SCH (08:09)
[2023-07-10] MEDS: INSULIN LISPRO (NovoLOG) PER UNIT SC SCH (08:10)
[2023-07-10 14:00] VITALS: BP 119/74; TEMP 98.1; O2SAT 96
[2023-07-10 20:46] VITALS: BP 121/73; TEMP 97.7; O2SAT 91
[2023-07-11 05:54] VITALS: BP 140/87; TEMP 97; O2SAT 92
[2023-07-11 05:57] LABS: BASO # 0.1 10^3/uL (0.0-0.2); BASO % 0.9 % (0.0-1.0); EOS # 0.3 10^3/uL (0.0-0.5); EOS % 2.8 % (0.0-3.0); HEMOGLOBIN 11.7 g/dl (12.0-15.5); LYMPH # 2.8 10^3/uL (1.5-5.0); LYMPH % 31.9 % (24.0-44.0); MEAN CORPUSCULAR HEMOGLOBIN 25.8 pg (27.0-33.0); MEAN CORPUSCULAR HGB CONC 30.8 g/dl (32.0-36.5); MEAN CORPUSCULAR VOLUME 83.9 fl (80.0-96.0); MONO # 0.5 10^3/uL (0.0-0.8); MONO % 5.9 % (2.0-8.0); NEUTROPHILS # 4.8 10^3/uL (1.5-8.5); NEUTROPHILS % 55.1 % (36.0-66.0); PLATELET COUNT, AUTOMATED 227 10^3/uL (150-450); RED BLOOD COUNT 4.53 10^6/uL (4.00-5.40); WHITE BLOOD COUNT 8.8 10^3/uL (4.0-10.0)
[2023-07-11 06:17] LABS: BLOOD UREA NITROGEN 26 MG/DL (9-23); CALCIUM LEVEL 9.5 MG/DL (8.3-10.6); CARBON DIOXIDE LEVEL 30 MMOL/L (20-31); CHLORIDE LEVEL 106 MMOL/L (98-107); CREATININE FOR GFR 0.71 MG/DL (0.55-1.30); GLOMERULAR FILTRATION RATE > 60.0 (>45); GLUCOSE, FASTING 216 MG/DL (74-106); POTASSIUM SERUM 3.9 MMOL/L (3.5-5.1); SODIUM LEVEL 140 MMOL/L (136-145)
[2023-07-11 07:26] VITALS: O2SAT 94
[2023-07-11 14:00] VITALS: BP 134/80; TEMP 97.3; O2SAT 93
[2023-07-11] MEDS: VANCOMYCIN HCL 750 MG, VIAL MATE ADAPTER 1 EACH in D5W 250 ML IV SCH (17:30)
[2023-07-11] MEDS: VANCOMYCIN HCL 500 MG in D5W MINI-BAG PLUS 100 ML IV SCH (18:42)
[2023-07-11 19:45] VITALS: BP 117/64; TEMP 97.5; O2SAT 93
[2023-07-12 05:12] VITALS: BP 135/84; TEMP 97.7; O2SAT 97
[2023-07-12 06:07] LABS: BASO # 0.1 10^3/uL (0.0-0.2); BASO % 0.8 % (0.0-1.0); EOS # 0.3 10^3/uL (0.0-0.5); EOS % 2.7 % (0.0-3.0); HEMATOCRIT 37.2 % (36.0-47.0); HEMOGLOBIN 11.6 g/dl (12.0-15.5); LYMPH % 30.3 % (24.0-44.0); MEAN CORPUSCULAR HEMOGLOBIN 26.2 pg (27.0-33.0); MEAN CORPUSCULAR HGB CONC 31.2 g/dl (32.0-36.5); MEAN CORPUSCULAR VOLUME 84.2 fl (80.0-96.0); MONO # 0.5 10^3/uL (0.0-0.8); MONO % 5.2 % (2.0-8.0); NEUTROPHILS # 5.5 10^3/uL (1.5-8.5); NEUTROPHILS % 56.6 % (36.0-66.0); PLATELET COUNT, AUTOMATED 223 10^3/uL (150-450); RED BLOOD COUNT 4.42 10^6/uL (4.00-5.40); WHITE BLOOD COUNT 9.8 10^3/uL (4.0-10.0)
[2023-07-12 06:29] LABS: BLOOD UREA NITROGEN 25 MG/DL (9-23); CALCIUM LEVEL 8.9 MG/DL (8.3-10.6); CARBON DIOXIDE LEVEL 27 MMOL/L (20-31); CHLORIDE LEVEL 108 MMOL/L (98-107); CREATININE FOR GFR 0.63 MG/DL (0.55-1.30); GLOMERULAR FILTRATION RATE > 60.0 (>45); GLUCOSE, FASTING 224 MG/DL (74-106); POTASSIUM SERUM 4.5 MMOL/L (3.5-5.1); SODIUM LEVEL 140 MMOL/L (136-145)
[2023-07-12 14:00] VITALS: BP 121/69; TEMP 91.9; TEMP 97.9; O2SAT 94
[2023-07-12] MEDS: FLUTICASONE PROP 0.05% NASAL SPRAY 16 GM (FLONASE) PRN (17:48)
[2023-07-12] MEDS: LevoFLOXacin 750 MG TABLET PO SCH (17:48)
[2023-07-12 19:17] VITALS: O2SAT 94
[2023-07-13 01:00] VITALS: BP 148/85; TEMP 97.7; O2SAT 94
[2023-07-13 04:06] VITALS: O2SAT 97
[2023-07-13 06:00] VITALS: BP 145/85; TEMP 97.7; O2SAT 94
[2023-07-13 06:21] LABS: HEMATOCRIT 35.4 % (36.0-47.0); HEMOGLOBIN 11.1 g/dl (12.0-15.5); MEAN CORPUSCULAR HEMOGLOBIN 26.4 pg (27.0-33.0); MEAN CORPUSCULAR HGB CONC 31.4 g/dl (32.0-36.5); MEAN CORPUSCULAR VOLUME 84.3 fl (80.0-96.0); PLATELET COUNT, AUTOMATED 217 10^3/uL (150-450); WHITE BLOOD COUNT 10.4 10^3/uL (4.0-10.0)
[2023-07-13 06:36] LABS: BLOOD UREA NITROGEN 25 MG/DL (9-23); CALCIUM LEVEL 9.6 MG/DL (8.3-10.6); CARBON DIOXIDE LEVEL 26 MMOL/L (20-31); CHLORIDE LEVEL 107 MMOL/L (98-107); CREATININE FOR GFR 0.64 MG/DL (0.55-1.30); GLOMERULAR FILTRATION RATE > 60.0 (>45); GLUCOSE, FASTING 231 MG/DL (74-106); POTASSIUM SERUM 4.3 MMOL/L (3.5-5.1); SODIUM LEVEL 138 MMOL/L (136-145)
[2023-07-13 07:02] LABS: ATYPICAL LYMPH 2 % (0-5); EOSINOPHILS 2 % (0-3); LYMPHOCYTES 25 % (16-44); MONOCYTES 4 % (0-5); MYELOCYTES 3 % (0-0); NEUTROPHILS 62 % (28-66); PLATELET ESTIMATE NORMAL (NORMAL)
[2023-07-13 07:03] LABS: ANISOCYTOSIS 1+
[2023-07-13] MEDS ORDERED: LEVO1TAB40 PO (10:59)
== END 2023-07-13 13:17 | disposition home or self-care (01) | DRG 872 ==
LOC: M ED 12:05 → EDBD 12:05 → M ED INP 16:32 → ENRESERV 16:48 → M MSPAV 17:28
PROVIDERS: ADMIT Internal Medicine Nephrology; ATTEND Student in an Organized Health Care Education/Training Program
PROC: B246ZZZ Ultrasonography of Right and Left Heart (ICD-10-PCS; principal; 2023-07-08)
DX: A41.9 Sepsis, unspecified organism (principal); E66.2 Morbid (severe) obesity with alveolar hypoventilation; J96.11 Chronic respiratory failure with hypoxia; I50.32 Chronic diastolic (congestive) heart failure; N39.0 Urinary tract infection, site not specified; J44.9 Chronic obstructive pulmonary disease, unspecified; Z99.81 Dependence on supplemental oxygen; E11.9 Type 2 diabetes mellitus without complications; K21.9 Gastro-esophageal reflux disease without esophagitis; I27.20 Pulmonary hypertension, unspecified; M54.50 Low back pain, unspecified; G89.29 Other chronic pain; K44.9 Diaphragmatic hernia without obstruction or gangrene; Z90.79 Acquired absence of other genital organ(s); B96.1 Klebsiella pneumoniae [K. pneumoniae] as the cause of diseases classified elsewhere; Z90.49 Acquired absence of other specified parts of digestive tract; F17.200 Nicotine dependence, unspecified, uncomplicated; Z79.82 Long term (current) 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; Z79.4 Long term (current) use of insulin; Z79.84 Long term (current) use of oral hypoglycemic drugs; Z79.52 Long term (current) use of systemic steroids; Z79.899 Other long term (current) drug therapy; Z88.0 Allergy status to penicillin; Z88.1 Allergy status to other antibiotic agents; Z88.2 Allergy status to sulfonamides; Z88.8 Allergy status to other drugs, medicaments and biological substances; Z20.822 Contact with and (suspected) exposure to COVID-19

== ENCOUNTER 2023-09-19 20:19 | Inpatient (IN) | payer MEDICARE ==
[~2023-09-19] VITALS: Ht 165.1 cm; Wt 113.1 kg
[~2023-09-19 20:19] MED LIST changes: -CORT1OIN2 TOP; +HYDR28OI12 TOP; -MIRA1POW3 PO; +MIRA33506 PO
[2023-09-19] MEDS ORDERED: IPRATROPIUM 0.5MG/ALBUTEROL 2.5MG INH SOL UD 3ML (DUONEB) NEB ONE (20:25)
[2023-09-19] MEDS: IPRATROPIUM 0.5MG/ALBUTEROL 2.5MG INH SOL UD 3ML (DUONEB) NEB PRN (20:33)
[2023-09-19] MEDS: methylPREDNISolone 125MG 2ML VIAL IV ONE (20:46)
[2023-09-19 20:54] LABS: ABG BASE EXCESS -0.5 (-2.0-2.0); ABG HCO3 24.7 MMOL/L (22.0-26.0); ABG O2 SATURATION 99.4 % (95.0-99.0); ABG PARTIAL PRESSURE CO2 42.4 mmHg (35.0-45.0); ABG PARTIAL PRESSURE O2 276.7 mmHg (75.0-100.0); ABG STANDARD HCO3 24.1 MMOL/L. (22.0-26.0); ABG pH (ARTERIAL) 7.383 UNITS (7.350-7.450)
[2023-09-19 20:59] LABS: BASO # 0.1 10^3/uL (0.0-0.2); BASO % 0.4 % (0.0-1.0); EOS # 0.1 10^3/uL (0.0-0.5); EOS % 0.4 % (0.0-3.0); HEMATOCRIT 46.8 % (36.0-47.0); HEMOGLOBIN 14.6 g/dl (12.0-15.5); LYMPH # 1.4 10^3/uL (1.5-5.0); MEAN CORPUSCULAR HEMOGLOBIN 26.5 pg (27.0-33.0); MEAN CORPUSCULAR HGB CONC 31.2 g/dl (32.0-36.5); MEAN CORPUSCULAR VOLUME 84.9 fl (80.0-96.0); MONO # 0.7 10^3/uL (0.0-0.8); MONO % 5.3 % (2.0-8.0); NEUTROPHILS % 81.5 % (36.0-66.0); PLATELET COUNT, AUTOMATED 274 10^3/uL (150-450); RED BLOOD COUNT 5.51 10^6/uL (4.00-5.40); WHITE BLOOD COUNT 13.5 10^3/uL (4.0-10.0)
[2023-09-19 21:16] LABS: INR 0.94; PROTHROMBIN TIME 12.3 SECONDS (12.5-14.5)
[2023-09-19 21:31] LABS: C REACTIVE PROTEIN QUANTITATIV < 0.40 MG/DL (<1.0); CK-MB VALUE MASS < 1.0 NG/ML (<3.6)
[2023-09-19 21:33] LABS: ALBUMIN 3.3 G/DL (3.2-5.2); ALKALINE PHOSPHATASE 98 U/L (46-116); ALT/SGPT 47 U/L (7.0-40); AST/SGOT 15 U/L (<34); BILIRUBIN,DIRECT < 0.1 MG/DL (<0.4); BILIRUBIN,TOTAL 0.4 MG/DL (0.3-1.2); BLOOD UREA NITROGEN 32 MG/DL (9-23); CALCIUM LEVEL 9.7 MG/DL (8.3-10.6); CARBON DIOXIDE LEVEL 26 MMOL/L (20-31); CHLORIDE LEVEL 109 MMOL/L (98-107); CREATININE FOR GFR 0.75 MG/DL (0.55-1.30); GLOMERULAR FILTRATION RATE > 60.0 (>45); GLUCOSE, FASTING 309 MG/DL (74-106); POTASSIUM SERUM 5.1 MMOL/L (3.5-5.1); SODIUM LEVEL 142 MMOL/L (136-145); TOTAL PROTEIN 6.6 G/DL (5.7-8.2)
[2023-09-19 21:34] LABS: THYROID STIMULATING HORMONE 0.651 uIU/ML (0.55-4.78)
[2023-09-19 21:35] LABS: FREE T4 1.22 NG/DL (0.89-1.76)
[2023-09-19 21:40] LABS: PROCALCITONIN <0.04 ng/ml
[2023-09-19 21:45] LABS: CPK CREATINE PHOSPHOKINASE 46 U/L (34-145); MB/CK RELATIVE INDEX 2.17 (< OR =4)
[2023-09-19] MEDS ORDERED: ACET-716 PO (23:41)
[2023-09-19] MEDS ORDERED: HOME MED LIST COMPLETE! XX SCH (23:45)
[2023-09-20] VITALS (21 sets, daily range): BP systolic 124–178; BP diastolic 57–113; TEMP 97–98; O2SAT 91–99
[2023-09-20] MEDS ORDERED: GLUCAGON INJ 1MG VIAL SC PRN (00:20)
[2023-09-20] MEDS ORDERED: DEXTROSE 50% 50ML SYRINGE IV PRN (00:20)
[2023-09-20] MEDS ORDERED: GLUCOSE 4GM CHEW TABLET PO PRN (00:20)
[2023-09-20] MEDS: LEVEMIR (INSULIN DETEMIR) 1 UNITS/0.01ML SC ONE (00:50)
[2023-09-20 01:12] LABS: CK-MB VALUE MASS < 1.0 NG/ML (<3.6)
[2023-09-20 01:14] LABS: CPK CREATINE PHOSPHOKINASE 54 U/L (34-145); MB/CK RELATIVE INDEX 1.85 (< OR =4)
[2023-09-20] MEDS ORDERED: ALBUTEROL 90 MCG/ACT 8GM HFA INHALER INH PRN (01:20)
[2023-09-20] MEDS: IPRATROPIUM 0.5MG/ALBUTEROL 2.5MG INH SOL UD 3ML (DUONEB) NEB SCH (02:48)
[2023-09-20 07:17] LABS: HEMATOCRIT 43.6 % (36.0-47.0); HEMOGLOBIN 13.4 g/dl (12.0-15.5); MEAN CORPUSCULAR HGB CONC 30.7 g/dl (32.0-36.5); MEAN CORPUSCULAR VOLUME 84.7 fl (80.0-96.0); PLATELET COUNT, AUTOMATED 233 10^3/uL (150-450); RED BLOOD COUNT 5.15 10^6/uL (4.00-5.40); WHITE BLOOD COUNT 13.4 10^3/uL (4.0-10.0)
[2023-09-20] MEDS: SYMBICORT 160/4.5MCG INHALER 6GM INH SCH (07:32)
[2023-09-20 07:51] LABS: ALBUMIN 2.9 G/DL (3.2-5.2); ALKALINE PHOSPHATASE 88 U/L (46-116); ALT/SGPT 43 U/L (7.0-40); AST/SGOT 9 U/L (<34); BILIRUBIN,TOTAL 0.4 MG/DL (0.3-1.2); BLOOD UREA NITROGEN 26 MG/DL (9-23); CALCIUM LEVEL 9.4 MG/DL (8.3-10.6); CARBON DIOXIDE LEVEL 24 MMOL/L (20-31); CHLORIDE LEVEL 109 MMOL/L (98-107); CREATININE FOR GFR 0.64 MG/DL (0.55-1.30); GLOMERULAR FILTRATION RATE > 60.0 (>45); GLUCOSE, FASTING 325 MG/DL (74-106); POTASSIUM SERUM 4.9 MMOL/L (3.5-5.1); SODIUM LEVEL 140 MMOL/L (136-145); TOTAL PROTEIN 5.9 G/DL (5.7-8.2)
[2023-09-20] MEDS: MELOXICAM (MOBIC) 7.5 MG TAB PO SCH (08:20)
[2023-09-20] MEDS: ATORVASTATIN 20 MG TAB PO SCH (08:20)
[2023-09-20] MEDS: ASPIRIN 81MG ENTERIC TABLET PO SCH (08:20)
[2023-09-20] MEDS: PANTOPRAZOLE 40MG TAB (PROTONIX) PO SCH (08:20)
[2023-09-20] MEDS: FUROSEMIDE 40 MG TAB PO SCH (08:20)
[2023-09-20] MEDS: NICOTINE 21MG/24HR 1 EA TRANSDERMAL TD SCH (08:21)
[2023-09-20] MEDS: methylPREDNISolone 125MG 2ML VIAL IV SCH (08:21)
[2023-09-20] MEDS: DOCUSATE SODIUM 100MG CAPSULE PO SCH (08:22)
[2023-09-20] MEDS: ENOXAPARIN 40MG/0.4ML SYRINGE (J1650 PER 10MG) SC SCH (08:22)
[2023-09-20] MEDS: INSULIN LISPRO (NovoLOG) PER UNIT SC SCH ×2 (08:23→20:32)
[2023-09-20] MEDS: guaiFENesin ER TABLET 600 MG TAB PO SCH (11:44)
[2023-09-20] MEDS: AZITHROMYCIN 250MG TABLET PO SCH (11:44)
[2023-09-20] MEDS: INSULIN LISPRO (NovoLOG) PER UNIT SC ONE (15:38)
[2023-09-20] MEDS: FLUTICASONE PROP 0.05% NASAL SPRAY 16 GM (FLONASE) NARES SCH (16:25)
[2023-09-20] MEDS: ACETAMINOPHEN TAB 650MG DOSE (2X325MG) PO PRN (19:30)
[2023-09-20] MEDS ORDERED: VANCOMYCIN HCL 750 MG, VIAL MATE ADAPTER 1 EACH in D5W 250 ML IV SCH (19:55)
[2023-09-20] MEDS: LEVEMIR (INSULIN DETEMIR) 1 UNITS/0.01ML SC SCH (20:31)
[2023-09-20] MEDS: VANCOMYCIN HCL 1,000 MG, VIAL MATE ADAPTER 1 EACH in D5W 250 ML IV ONE ×2 (20:38→21:38)
[2023-09-21] VITALS (18 sets, daily range): BP systolic 129–148; BP diastolic 62–77; TEMP 97–97.8; O2SAT 90–97
[2023-09-21 04:33] LABS: BASO % 0.2 % (0.0-1.0); HEMATOCRIT 43.1 % (36.0-47.0); HEMOGLOBIN 13.3 g/dl (12.0-15.5); LYMPH # 0.8 10^3/uL (1.5-5.0); MEAN CORPUSCULAR HEMOGLOBIN 26.4 pg (27.0-33.0); MEAN CORPUSCULAR HGB CONC 30.9 g/dl (32.0-36.5); MEAN CORPUSCULAR VOLUME 85.7 fl (80.0-96.0); MONO # 0.3 10^3/uL (0.0-0.8); MONO % 2.4 % (2.0-8.0); NEUTROPHILS # 11.3 10^3/uL (1.5-8.5); NEUTROPHILS % 89.1 % (36.0-66.0); PLATELET COUNT, AUTOMATED 240 10^3/uL (150-450); RED BLOOD COUNT 5.03 10^6/uL (4.00-5.40); WHITE BLOOD COUNT 12.7 10^3/uL (4.0-10.0)
[2023-09-21 04:52] LABS: ALBUMIN 3.2 G/DL (3.2-5.2); ALKALINE PHOSPHATASE 83 U/L (46-116); ALT/SGPT 34 U/L (7.0-40); AST/SGOT 10 U/L (<34); BILIRUBIN,TOTAL 0.4 MG/DL (0.3-1.2); BLOOD UREA NITROGEN 39 MG/DL (9-23); CALCIUM LEVEL 9.9 MG/DL (8.3-10.6); CARBON DIOXIDE LEVEL 28 MMOL/L (20-31); CHLORIDE LEVEL 107 MMOL/L (98-107); CREATININE FOR GFR 0.84 MG/DL (0.55-1.30); GLOMERULAR FILTRATION RATE > 60.0 (>45); GLUCOSE, FASTING 332 MG/DL (74-106); SODIUM LEVEL 139 MMOL/L (136-145); TOTAL PROTEIN 5.7 G/DL (5.7-8.2)
[2023-09-21] MEDS: VANCOMYCIN HCL 750 MG, VIAL MATE ADAPTER 1 EACH in D5W 250 ML IV SCH (07:21)
[2023-09-21 07:47] LABS: VANCOMYCIN RANDOM 14.6 UG/ML
[2023-09-21] MEDS: VANCOMYCIN HCL 500 MG in D5W MINI-BAG PLUS 100 ML IV SCH (08:39)
[2023-09-21] MEDS: MOM 30ML SUSPENSION UDC PO PRN (12:21)
[2023-09-21] MEDS: MIRALAX *UNIT DOSE* 17GM PACKET PO SCH (21:11)
[2023-09-22] VITALS (12 sets, daily range): BP systolic 113–143; BP diastolic 55–79; TEMP 95.9–98.3; O2SAT 94–99
[2023-09-22 05:37] LABS: BASO % 0.2 % (0.0-1.0); HEMATOCRIT 41.6 % (36.0-47.0); HEMOGLOBIN 12.8 g/dl (12.0-15.5); LYMPH # 0.7 10^3/uL (1.5-5.0); LYMPH % 5.6 % (24.0-44.0); MEAN CORPUSCULAR HEMOGLOBIN 25.8 pg (27.0-33.0); MEAN CORPUSCULAR HGB CONC 30.8 g/dl (32.0-36.5); MEAN CORPUSCULAR VOLUME 83.9 fl (80.0-96.0); MONO # 0.4 10^3/uL (0.0-0.8); MONO % 3.1 % (2.0-8.0); NEUTROPHILS # 11.3 10^3/uL (1.5-8.5); NEUTROPHILS % 89.3 % (36.0-66.0); PLATELET COUNT, AUTOMATED 216 10^3/uL (150-450); RED BLOOD COUNT 4.96 10^6/uL (4.00-5.40); WHITE BLOOD COUNT 12.6 10^3/uL (4.0-10.0)
[2023-09-22 05:45] LABS: ALBUMIN 2.7 G/DL (3.2-5.2); ALKALINE PHOSPHATASE 75 U/L (46-116); ALT/SGPT 37 U/L (7.0-40); AST/SGOT 12 U/L (<34); BILIRUBIN,TOTAL 0.3 MG/DL (0.3-1.2); BLOOD UREA NITROGEN 42 MG/DL (9-23); CALCIUM LEVEL 9.1 MG/DL (8.3-10.6); CARBON DIOXIDE LEVEL 25 MMOL/L (20-31); CHLORIDE LEVEL 106 MMOL/L (98-107); CREATININE FOR GFR 0.76 MG/DL (0.55-1.30); GLOMERULAR FILTRATION RATE > 60.0 (>45); GLUCOSE, FASTING 456 MG/DL (74-106); POTASSIUM SERUM 4.8 MMOL/L (3.5-5.1); SODIUM LEVEL 136 MMOL/L (136-145); TOTAL PROTEIN 5.4 G/DL (5.7-8.2)
[2023-09-22] MEDS: LEVEMIR (INSULIN DETEMIR) 1 UNITS/0.01ML SC SCH ×2 (08:30→20:47)
[2023-09-22] MEDS: predniSONE 20 MG TAB PO SCH (08:31)
[2023-09-23 00:07] VITALS: BP 138/62; TEMP 96.1; O2SAT 93
[2023-09-23 04:35] VITALS: BP 108/62; TEMP 96.2; O2SAT 97
[2023-09-23 05:51] LABS: BASO % 0.3 % (0.0-1.0); EOS # 0.1 10^3/uL (0.0-0.5); EOS % 0.7 % (0.0-3.0); HEMATOCRIT 41.4 % (36.0-47.0); LYMPH # 2.8 10^3/uL (1.5-5.0); LYMPH % 23.5 % (24.0-44.0); MEAN CORPUSCULAR HEMOGLOBIN 26.2 pg (27.0-33.0); MEAN CORPUSCULAR HGB CONC 31.4 g/dl (32.0-36.5); MEAN CORPUSCULAR VOLUME 83.3 fl (80.0-96.0); MONO # 0.7 10^3/uL (0.0-0.8); MONO % 6.2 % (2.0-8.0); NEUTROPHILS # 7.9 10^3/uL (1.5-8.5); NEUTROPHILS % 66.4 % (36.0-66.0); PLATELET COUNT, AUTOMATED 213 10^3/uL (150-450); RED BLOOD COUNT 4.97 10^6/uL (4.00-5.40); WHITE BLOOD COUNT 11.9 10^3/uL (4.0-10.0)
[2023-09-23 06:12] LABS: ALBUMIN 2.7 G/DL (3.2-5.2); ALKALINE PHOSPHATASE 72 U/L (46-116); ALT/SGPT 49 U/L (7.0-40); AST/SGOT 14 U/L (<34); BILIRUBIN,TOTAL 0.4 MG/DL (0.3-1.2); BLOOD UREA NITROGEN 40 MG/DL (9-23); CALCIUM LEVEL 9.4 MG/DL (8.3-10.6); CARBON DIOXIDE LEVEL 28 MMOL/L (20-31); CHLORIDE LEVEL 106 MMOL/L (98-107); CREATININE FOR GFR 0.77 MG/DL (0.55-1.30); GLOMERULAR FILTRATION RATE > 60.0 (>45); GLUCOSE, FASTING 223 MG/DL (74-106); POTASSIUM SERUM 4.1 MMOL/L (3.5-5.1); SODIUM LEVEL 139 MMOL/L (136-145); TOTAL PROTEIN 5.2 G/DL (5.7-8.2)
[2023-09-23] MEDS: LEVEMIR (INSULIN DETEMIR) 1 UNITS/0.01ML SC SCH (07:50)
[2023-09-23] MEDS: INSULIN LISPRO (NovoLOG) PER UNIT SC SCH (07:52)
[2023-09-23 08:02] VITALS: BP 112/73; TEMP 97; O2SAT 96
[2023-09-23 11:45] VITALS: BP 132/81; O2SAT 95
[2023-09-23] MEDS ORDERED: MUCI600T31 PO (12:49)
== END 2023-09-23 15:30 | disposition home or self-care (01) | DRG 190 ==
LOC: EDBD 20:19 → M ED 20:19 → EDUNIT# 20:19 → M ED INP 23:51 → ENRESERV 09-20 00:16 → M ICU 09-20 00:34 → M PCU 09-22 10:41
PROVIDERS: ADMIT Family Medicine; ATTEND Internal Medicine Nephrology
DX: J44.1 Chronic obstructive pulmonary disease with (acute) exacerbation (principal); J96.21 Acute and chronic respiratory failure with hypoxia; I50.32 Chronic diastolic (congestive) heart failure; Z68.41 Body mass index [BMI] 40.0-44.9, adult; I27.20 Pulmonary hypertension, unspecified; I11.0 Hypertensive heart disease with heart failure; K21.9 Gastro-esophageal reflux disease without esophagitis; G47.33 Obstructive sleep apnea (adult) (pediatric); Z99.81 Dependence on supplemental oxygen; F17.200 Nicotine dependence, unspecified, uncomplicated; E66.01 Morbid (severe) obesity due to excess calories; E11.65 Type 2 diabetes mellitus with hyperglycemia; M54.50 Low back pain, unspecified; G89.29 Other chronic pain; K57.90 Diverticulosis of intestine, part unspecified, without perforation or abscess without bleeding; K44.9 Diaphragmatic hernia without obstruction or gangrene; K64.8 Other hemorrhoids; K46.9 Unspecified abdominal hernia without obstruction or gangrene; Z88.0 Allergy status to penicillin; Z88.8 Allergy status to other drugs, medicaments and biological substances; Z88.2 Allergy status to sulfonamides; Z79.899 Other long term (current) drug therapy; Z79.82 Long term (current) 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

== ENCOUNTER 2023-09-29 17:51 | Inpatient (IN) | payer MEDICARE ==
[~2023-09-29] VITALS: Ht 170.2 cm; Wt 115.5 kg
[~2023-09-29 17:51] MED LIST changes: +ACET-716 PO; +LIDO1PAD TD
[2023-09-29] MEDS ORDERED: IPRATROPIUM 0.5MG/ALBUTEROL 2.5MG INH SOL UD 3ML (DUONEB) NEB PRN (18:40)
[2023-09-29 18:54] LABS: VENOUS HCO3 21.1 MMOL/L (23.0-27.0); VENOUS O2 SATURATION 96.7 % (60.0-80.0); VENOUS PARTIAL PRESSURE CO2 38.8 mmHg (38.0-50.0); VENOUS PARTIAL PRESSURE O2 95.3 mmHg (30.0-50.0); VENOUS PH 7.353 UNITS (7.330-7.430); VENOUS STANDARD HCO3 21.1 MMOL/L; VENOUS TOTAL CO2 22.3 MMOL/L (24.0-28.0)
[2023-09-29 18:59] LABS: BASO # 0.1 10^3/uL (0.0-0.2); BASO % 0.4 % (0.0-1.0); EOS # 0.1 10^3/uL (0.0-0.5); EOS % 0.9 % (0.0-3.0); HEMOGLOBIN 13.3 g/dl (12.0-15.5); LYMPH # 3.9 10^3/uL (1.5-5.0); LYMPH % 28.3 % (24.0-44.0); MEAN CORPUSCULAR HEMOGLOBIN 26.3 pg (27.0-33.0); MEAN CORPUSCULAR HGB CONC 30.9 g/dl (32.0-36.5); MEAN CORPUSCULAR VOLUME 85.1 fl (80.0-96.0); MONO # 0.6 10^3/uL (0.0-0.8); MONO % 4.4 % (2.0-8.0); NEUTROPHILS # 8.5 10^3/uL (1.5-8.5); PLATELET COUNT, AUTOMATED 257 10^3/uL (150-450); RED BLOOD COUNT 5.05 10^6/uL (4.00-5.40); WHITE BLOOD COUNT 13.6 10^3/uL (4.0-10.0)
[2023-09-29 19:10] LABS: INR 0.92; PROTHROMBIN TIME 12.1 SECONDS (12.5-14.5)
[2023-09-29 19:25] LABS: C REACTIVE PROTEIN QUANTITATIV < 0.40 MG/DL (<1.0)
[2023-09-29 19:33] LABS: ALBUMIN 3.1 G/DL (3.2-5.2); ALKALINE PHOSPHATASE 84 U/L (46-116); ALT/SGPT 80 U/L (7.0-40); AST/SGOT 43 U/L (<34); BILIRUBIN,DIRECT 0.1 MG/DL (<0.4); BILIRUBIN,TOTAL 0.4 MG/DL (0.3-1.2); BLOOD UREA NITROGEN 26 MG/DL (9-23); CALCIUM LEVEL 9.3 MG/DL (8.3-10.6); CARBON DIOXIDE LEVEL 25 MMOL/L (20-31); CHLORIDE LEVEL 110 MMOL/L (98-107); CK-MB VALUE MASS < 1.0 NG/ML (<3.6); CPK CREATINE PHOSPHOKINASE 36 U/L (34-145); CREATININE FOR GFR 0.86 MG/DL (0.55-1.30); FREE T4 1.43 NG/DL (0.89-1.76); GLOMERULAR FILTRATION RATE > 60.0 (>45); GLUCOSE, FASTING 203 MG/DL (74-106); MB/CK RELATIVE INDEX 2.77 (< OR =4); POTASSIUM SERUM 4.2 MMOL/L (3.5-5.1); SODIUM LEVEL 141 MMOL/L (136-145); TOTAL PROTEIN 5.5 G/DL (5.7-8.2)
[2023-09-29 20:02] LABS: PROCALCITONIN 0.04 ng/ml
[2023-09-29 20:48] LABS: CK-MB VALUE MASS < 1.0 NG/ML (<3.6)
[2023-09-29 20:50] LABS: CPK CREATINE PHOSPHOKINASE 32 U/L (34-145); MB/CK RELATIVE INDEX 3.12 (< OR =4)
[2023-09-29] MEDS ORDERED: DEXTROSE 50% 50ML SYRINGE IV PRN (21:10)
[2023-09-29] MEDS ORDERED: GLUCAGON INJ 1MG VIAL SC PRN (21:10)
[2023-09-29] MEDS ORDERED: GLUCOSE 4GM CHEW TABLET PO PRN (21:10)
[2023-09-29] MEDS ORDERED: ALBUTEROL SULFATE 2.5MG/0.5ML INH NEB SOLN NEB PRN (21:10)
[2023-09-29] MEDS: guaiFENesin ER TABLET 600 MG TAB PO SCH (22:10)
[2023-09-29] MEDS: INSULIN LISPRO (NovoLOG) PER UNIT SC SCH (22:11)
[2023-09-29 22:30] LABS: APPEARANCE, URINE HAZY (CLEAR); BACTERIA, URINE AUTO 3+ (NEGATIVE); BILIRUBIN, URINE AUTO NEGATIVE (NEGATIVE); BLOOD, URINE BLOOD NEGATIVE (NEGATIVE); COLOR, URINE YELLOW (YELLOW); GLUCOSE, URINE (UA) AUTO 3+ mg/dL (NEGATIVE); KETONE, URINE AUTO NEGATIVE (NEGATIVE); LEUKOCYTE ESTERASE, URINE AUTO NEGATIVE (NEGATIVE); MUCUS, URINE SMALL (NEGATIVE); NITRITE, URINE AUTO POSITIVE (NEGATIVE); PROTEIN, URINE AUTO 2+ mg/dL (NEGATIVE); RBC, URINE AUTO 0 /HPF (0-3); SPECIFIC GRAVITY URINE AUTO 1.038 (1.002-1.035); SQUAMOUS EPITHELIAL CELL UR AU 2 /HPF (0-6); UROBILINOGEN, URINE AUTO 0.2 mg/dL (0.0-2.0); WBC, URINE AUTO 3 /HPF (0-3)
[2023-09-29] MEDS ORDERED: HOME MED LIST COMPLETE! XX SCH (22:30)
[2023-09-29] MEDS: LEVEMIR (INSULIN DETEMIR) 1 UNITS/0.01ML SC SCH (23:29)
[2023-09-30] VITALS (22 sets, daily range): BP systolic 96–180; BP diastolic 53–93; TEMP 96.8–97.9; O2SAT 89–100
[2023-09-30] MEDS: IPRATROPIUM 0.5MG/ALBUTEROL 2.5MG INH SOL UD 3ML (DUONEB) NEB SCH (02:06)
[2023-09-30 05:01] LABS: BASO # 0.1 10^3/uL (0.0-0.2); BASO % 0.4 % (0.0-1.0); HEMATOCRIT 41.8 % (36.0-47.0); LYMPH # 0.9 10^3/uL (1.5-5.0); LYMPH % 5.6 % (24.0-44.0); MEAN CORPUSCULAR HEMOGLOBIN 25.9 pg (27.0-33.0); MEAN CORPUSCULAR HGB CONC 31.1 g/dl (32.0-36.5); MEAN CORPUSCULAR VOLUME 83.4 fl (80.0-96.0); MONO # 0.2 10^3/uL (0.0-0.8); MONO % 1.2 % (2.0-8.0); NEUTROPHILS # 14.1 10^3/uL (1.5-8.5); PLATELET COUNT, AUTOMATED 237 10^3/uL (150-450); RED BLOOD COUNT 5.01 10^6/uL (4.00-5.40); WHITE BLOOD COUNT 15.9 10^3/uL (4.0-10.0)
[2023-09-30 05:36] LABS: BLOOD UREA NITROGEN 25 MG/DL (9-23); CALCIUM LEVEL 9.7 MG/DL (8.3-10.6); CARBON DIOXIDE LEVEL 24 MMOL/L (20-31); CHLORIDE LEVEL 110 MMOL/L (98-107); CREATININE FOR GFR 0.72 MG/DL (0.55-1.30); GLOMERULAR FILTRATION RATE > 60.0 (>45); GLUCOSE, FASTING 278 MG/DL (74-106); SODIUM LEVEL 141 MMOL/L (136-145)
[2023-09-30] MEDS ORDERED: ENOXAPARIN 40MG/0.4ML SYRINGE (J1650 PER 10MG) SC SCH (09:00)
[2023-09-30] MEDS: INSULIN LISPRO (NovoLOG) PER UNIT SC SCH (09:07)
[2023-09-30] MEDS: HEPARIN SOD (PORCINE) 5000UNITS/ML 1ML VIAL/SYRINGE SQ SCH (09:07)
[2023-09-30] MEDS: FUROSEMIDE 40MG/4ML VIAL IV SCH (09:07)
[2023-09-30] MEDS: predniSONE 10MG TAB PO SCH (09:08)
[2023-09-30] MEDS: ASPIRIN 81MG ENTERIC TABLET PO SCH (09:08)
[2023-09-30] MEDS: ATORVASTATIN 20 MG TAB PO SCH (09:08)
[2023-09-30] MEDS: AZITHROMYCIN 250MG TABLET PO SCH (14:52)
[2023-09-30] MEDS: NICOTINE 21MG/24HR 1 EA TRANSDERMAL TD PRN (23:31)
[2023-10-01] MEDS: ACETAMINOPHEN TAB 650MG DOSE (2X325MG) PO PRN (00:56)
[2023-10-01 05:39] VITALS: BP 134/76; TEMP 97.2; O2SAT 98
[2023-10-01 07:15] LABS: BASO # 0.1 10^3/uL (0.0-0.2); BASO % 0.3 % (0.0-1.0); EOS # 0.1 10^3/uL (0.0-0.5); EOS % 0.5 % (0.0-3.0); HEMOGLOBIN 12.2 g/dl (12.0-15.5); LYMPH # 2.8 10^3/uL (1.5-5.0); MEAN CORPUSCULAR HEMOGLOBIN 26.2 pg (27.0-33.0); MEAN CORPUSCULAR HGB CONC 31.3 g/dl (32.0-36.5); MEAN CORPUSCULAR VOLUME 83.7 fl (80.0-96.0); MONO # 0.7 10^3/uL (0.0-0.8); NEUTROPHILS # 10.6 10^3/uL (1.5-8.5); NEUTROPHILS % 72.2 % (36.0-66.0); PLATELET COUNT, AUTOMATED 227 10^3/uL (150-450); RED BLOOD COUNT 4.66 10^6/uL (4.00-5.40); WHITE BLOOD COUNT 14.7 10^3/uL (4.0-10.0)
[2023-10-01 07:25] LABS: ALKALINE PHOSPHATASE 73 U/L (46-116); ALT/SGPT 56 U/L (7.0-40); AST/SGOT 10 U/L (<34); BILIRUBIN,TOTAL 0.4 MG/DL (0.3-1.2); BLOOD UREA NITROGEN 35 MG/DL (9-23); CALCIUM LEVEL 9.4 MG/DL (8.3-10.6); CARBON DIOXIDE LEVEL 27 MMOL/L (20-31); CHLORIDE LEVEL 107 MMOL/L (98-107); CREATININE FOR GFR 0.75 MG/DL (0.55-1.30); GLOMERULAR FILTRATION RATE > 60.0 (>45); GLUCOSE, FASTING 216 MG/DL (74-106); POTASSIUM SERUM 3.9 MMOL/L (3.5-5.1); SODIUM LEVEL 140 MMOL/L (136-145); TOTAL PROTEIN 5.3 G/DL (5.7-8.2)
[2023-10-01] MEDS ORDERED: MUCI600T31 PO (10:19)
[2023-10-01] MEDS ORDERED: AZIT-12 PO (10:19)
== END 2023-10-01 13:15 | disposition home or self-care (01) | DRG 189 ==
LOC: M ED 17:51 → M ED INP 20:20 → M ICU 09-30 00:27 → M MS5PR 09-30 23:10
PROVIDERS: ADMIT Internal Medicine Pulmonary Disease; ATTEND Hospitalist
DX: J96.21 Acute and chronic respiratory failure with hypoxia (principal); I50.33 Acute on chronic diastolic (congestive) heart failure; J44.1 Chronic obstructive pulmonary disease with (acute) exacerbation; I11.0 Hypertensive heart disease with heart failure; K21.9 Gastro-esophageal reflux disease without esophagitis; I27.81 Cor pulmonale (chronic); I27.20 Pulmonary hypertension, unspecified; E78.5 Hyperlipidemia, unspecified; E66.9 Obesity, unspecified; G47.33 Obstructive sleep apnea (adult) (pediatric); E11.9 Type 2 diabetes mellitus without complications; Z99.81 Dependence on supplemental oxygen; Z87.891 Personal history of nicotine dependence; Z88.0 Allergy status to penicillin; Z88.2 Allergy status to sulfonamides; Z88.8 Allergy status to other drugs, medicaments and biological substances; Z79.899 Other long term (current) drug therapy; Z79.82 Long term (current) 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; Z79.4 Long term (current) use of insulin; Z68.38 Body mass index [BMI] 38.0-38.9, adult

== ENCOUNTER 2023-10-17 04:23 | Inpatient (IN) | payer MEDICARE ==
[~2023-10-17] VITALS: Ht 170.2 cm; Wt 118.3 kg
[~2023-10-17 04:23] MED LIST changes: +DOXY-323 PO; +DOXY-440 PO; -DOXY-443 PO; -DOXY-444 PO
[2023-10-17 05:01] LABS: VENOUS BASE EXCESS 0.9 (-2.0-2.0); VENOUS HCO3 27.8 MMOL/L (23.0-27.0); VENOUS O2 SATURATION 82.5 % (60.0-80.0); VENOUS PARTIAL PRESSURE CO2 52.9 mmHg (38.0-50.0); VENOUS PARTIAL PRESSURE O2 47.5 mmHg (30.0-50.0); VENOUS PH 7.338 UNITS (7.330-7.430); VENOUS STANDARD HCO3 24.9 MMOL/L; VENOUS TOTAL CO2 29.4 MMOL/L (24.0-28.0)
[2023-10-17 05:03] LABS: BASO # 0.1 10^3/uL (0.0-0.2); BASO % 0.6 % (0.0-1.0); EOS # 0.1 10^3/uL (0.0-0.5); EOS % 0.9 % (0.0-3.0); HEMATOCRIT 45.6 % (36.0-47.0); HEMOGLOBIN 14.5 g/dl (12.0-15.5); LYMPH # 5.1 10^3/uL (1.5-5.0); LYMPH % 32.6 % (24.0-44.0); MEAN CORPUSCULAR HEMOGLOBIN 26.9 pg (27.0-33.0); MEAN CORPUSCULAR HGB CONC 31.8 g/dl (32.0-36.5); MEAN CORPUSCULAR VOLUME 84.6 fl (80.0-96.0); MONO # 0.8 10^3/uL (0.0-0.8); MONO % 4.9 % (2.0-8.0); NEUTROPHILS # 8.9 10^3/uL (1.5-8.5); PLATELET COUNT, AUTOMATED 225 10^3/uL (150-450); RED BLOOD COUNT 5.39 10^6/uL (4.00-5.40); WHITE BLOOD COUNT 15.6 10^3/uL (4.0-10.0)
[2023-10-17 05:31] LABS: ALBUMIN 3.6 G/DL (3.2-5.2); ALKALINE PHOSPHATASE 90 U/L (46-116); ALT/SGPT 44 U/L (7.0-40); AST/SGOT 14 U/L (<34); BILIRUBIN,DIRECT 0.2 MG/DL (<0.4); BILIRUBIN,TOTAL 0.6 MG/DL (0.3-1.2); BLOOD UREA NITROGEN 26 MG/DL (9-23); CALCIUM LEVEL 9.2 MG/DL (8.3-10.6); CARBON DIOXIDE LEVEL 28 MMOL/L (20-31); CHLORIDE LEVEL 104 MMOL/L (98-107); CK-MB VALUE MASS < 1.0 NG/ML (<3.6); CREATININE FOR GFR 0.93 MG/DL (0.55-1.30); GLOMERULAR FILTRATION RATE > 60.0 (>45); GLUCOSE, FASTING 159 MG/DL (74-106); POTASSIUM SERUM 3.6 MMOL/L (3.5-5.1); SODIUM LEVEL 141 MMOL/L (136-145); TOTAL PROTEIN 6.3 G/DL (5.7-8.2)
[2023-10-17 05:47] LABS: CPK CREATINE PHOSPHOKINASE 43 U/L (34-145); MB/CK RELATIVE INDEX 2.32 (< OR =4)
[2023-10-17] MEDS: IPRATROPIUM 0.5MG/ALBUTEROL 2.5MG INH SOL UD 3ML (DUONEB) NEB ONE ×2 (06:37→08:00)
[2023-10-17 07:38] LABS: C REACTIVE PROTEIN QUANTITATIV < 0.40 MG/DL (<1.0)
[2023-10-17] MEDS ORDERED: MED REC IN PROGRESS XX SCH (07:45)
[2023-10-17 07:51] LABS: PROCALCITONIN <0.04 ng/ml
[2023-10-17] MEDS: SYMBICORT 160/4.5MCG INHALER 6GM INH SCH (08:00)
[2023-10-17] MEDS: cefTRIAXone SOD 1 GM in D5W MINI-BAG PLUS 50 ML IV ONE (08:20)
[2023-10-17] MEDS: NS 1,000 ML IV ONE (08:20)
[2023-10-17] MEDS: FLUTICASONE PROP 0.05% NASAL SPRAY 16 GM (FLONASE) SCH (09:00)
[2023-10-17] MEDS ORDERED: HOME MED LIST COMPLETE! XX SCH (09:00)
[2023-10-17] MEDS ORDERED: FUROSEMIDE 40 MG TAB PO SCH (09:00)
[2023-10-17] MEDS ORDERED: ACETAMINOPHEN TAB 650MG DOSE (2X325MG) PO PRN (09:25)
[2023-10-17] MEDS ORDERED: NICOTINE 21MG/24HR 1 EA TRANSDERMAL TD PRN (09:30)
[2023-10-17] MEDS ORDERED: DEXTROSE 50% 50ML SYRINGE IV PRN (09:30)
[2023-10-17] MEDS ORDERED: IPRATROPIUM 0.5MG/ALBUTEROL 2.5MG INH SOL UD 3ML (DUONEB) NEB PRN (09:30)
[2023-10-17] MEDS ORDERED: GLUCAGON INJ 1MG VIAL SC PRN (09:30)
[2023-10-17] MEDS ORDERED: GLUCOSE 4 GM CHEW PO PRN (09:30)
[2023-10-17] MEDS ORDERED: ISOVUE-370 76% 100ML VIAL As Ordered ONE (09:38)
[2023-10-17] MEDS: TIOTROPIUM INHALER/CAPSULE (SPIRIVA) INH SCH (10:04)
[2023-10-17] MEDS: methylPREDNISolone 40MG 1ML VIAL IV SCH (11:20)
[2023-10-17] MEDS: ENOXAPARIN 40MG/0.4ML SYRINGE (J1650 PER 10MG) SC SCH (11:21)
[2023-10-17] MEDS: ATORVASTATIN 20 MG TAB PO SCH (11:21)
[2023-10-17] MEDS: MIRALAX *UNIT DOSE* 17GM PACKET PO PRN (11:21)
[2023-10-17] MEDS: PANTOPRAZOLE 40MG TAB (PROTONIX) PO SCH (11:21)
[2023-10-17] MEDS: ASPIRIN 81MG ENTERIC TABLET PO SCH (11:23)
[2023-10-17] MEDS: guaiFENesin ER TABLET 600 MG TAB PO SCH (11:23)
[2023-10-17] MEDS: IPRATROPIUM 0.5MG/ALBUTEROL 2.5MG INH SOL UD 3ML (DUONEB) NEB SCH ×2 (13:13→19:59)
[2023-10-17] MEDS: AZITHROMYCIN 250MG TABLET PO SCH (13:20)
[2023-10-17] MEDS: LEVEMIR (INSULIN DETEMIR) 1 UNITS/0.01ML SC SCH (13:21)
[2023-10-17] MEDS: FUROSEMIDE 40 MG TAB PO SCH (13:21)
[2023-10-17] MEDS: INSULIN LISPRO (NovoLOG) PER UNIT SC SCH ×2 (13:23→20:09)
[2023-10-17] MEDS: LEVALBUTEROL 1.25MG 0.5ML CONCENTRATE NEB INH SCH (13:40)
[2023-10-17 15:17] VITALS: BP 180/90; TEMP 98; O2SAT 93
[2023-10-17] MEDS ORDERED: LABETALOL 100MG/20ML VIAL IV PRN (17:00)
[2023-10-17] MEDS: LOSARTAN 25 MG TAB PO SCH (17:48)
[2023-10-17] MEDS: LR 500 ML IV ONE (17:48)
[2023-10-17 17:50] VITALS: BP 145/75
[2023-10-17 19:09] VITALS: BP 154/68; TEMP 97.4; O2SAT 96
[2023-10-17 20:00] VITALS: O2SAT 92
[2023-10-17] MEDS: ACETAMINOPH W/CODEINE #3 TAB UD PO PRN (20:18)
[2023-10-17 20:19] VITALS: BP 154/68; TEMP 97.4; O2SAT 96
[2023-10-17] MEDS: NYSTATIN 100,000 UNITS/GM TOPICAL PWD 15GM TOP SCH (20:19)
[2023-10-17 23:00] VITALS: BP 148/70; TEMP 97.6; O2SAT 95
[2023-10-18] VITALS (12 sets, daily range): BP systolic 126–144; BP diastolic 60–88; TEMP 96.5–97.4; O2SAT 92–98
[2023-10-18 05:30] LABS: HEMATOCRIT 42.2 % (36.0-47.0); HEMOGLOBIN 13.4 g/dl (12.0-15.5); MEAN CORPUSCULAR HEMOGLOBIN 26.6 pg (27.0-33.0); MEAN CORPUSCULAR HGB CONC 31.8 g/dl (32.0-36.5); MEAN CORPUSCULAR VOLUME 83.9 fl (80.0-96.0); PLATELET COUNT, AUTOMATED 209 10^3/uL (150-450); RED BLOOD COUNT 5.03 10^6/uL (4.00-5.40); WHITE BLOOD COUNT 14.3 10^3/uL (4.0-10.0)
[2023-10-18 05:52] LABS: BLOOD UREA NITROGEN 25 MG/DL (9-23); CARBON DIOXIDE LEVEL 28 MMOL/L (20-31); CHLORIDE LEVEL 109 MMOL/L (98-107); GLOMERULAR FILTRATION RATE > 60.0 (>45); GLUCOSE, FASTING 303 MG/DL (74-106); POTASSIUM SERUM 4.3 MMOL/L (3.5-5.1); SODIUM LEVEL 142 MMOL/L (136-145)
[2023-10-18] MEDS: LEVALBUTEROL 1.25MG 0.5ML CONCENTRATE NEB INH PRN (07:56)
[2023-10-18] MEDS: LEVEMIR (INSULIN DETEMIR) 1 UNITS/0.01ML SC SCH ×2 (09:16→22:35)
[2023-10-18] MEDS: methylPREDNISolone 40MG 1ML VIAL IV SCH (22:36)
[2023-10-19] VITALS (12 sets, daily range): BP systolic 119–134; BP diastolic 63–68; TEMP 96.9–97.1; O2SAT 92–97
[2023-10-19 05:04] LABS: HEMATOCRIT 41.2 % (36.0-47.0); HEMOGLOBIN 12.9 g/dl (12.0-15.5); MEAN CORPUSCULAR HEMOGLOBIN 26.2 pg (27.0-33.0); MEAN CORPUSCULAR HGB CONC 31.3 g/dl (32.0-36.5); MEAN CORPUSCULAR VOLUME 83.6 fl (80.0-96.0); PLATELET COUNT, AUTOMATED 201 10^3/uL (150-450); RED BLOOD COUNT 4.93 10^6/uL (4.00-5.40); WHITE BLOOD COUNT 13.5 10^3/uL (4.0-10.0)
[2023-10-19 05:28] LABS: BLOOD UREA NITROGEN 36 MG/DL (9-23); CALCIUM LEVEL 9.1 MG/DL (8.3-10.6); CARBON DIOXIDE LEVEL 27 MMOL/L (20-31); CHLORIDE LEVEL 106 MMOL/L (98-107); CREATININE FOR GFR 0.74 MG/DL (0.55-1.30); GLOMERULAR FILTRATION RATE > 60.0 (>45); GLUCOSE, FASTING 341 MG/DL (74-106); POTASSIUM SERUM 4.8 MMOL/L (3.5-5.1); SODIUM LEVEL 139 MMOL/L (136-145)
[2023-10-19] MEDS: LEVEMIR (INSULIN DETEMIR) 1 UNITS/0.01ML SC SCH (08:13)
== END 2023-10-19 16:05 | disposition home health service (06) | DRG 190 ==
LOC: EDBD 04:23 → M ED 04:23 → M ED INP 09:37 → M PCU 15:26 → OBSVTOIN 10-18 15:05
PROVIDERS: ADMIT Internal Medicine; ATTEND Internal Medicine
DX: J44.1 Chronic obstructive pulmonary disease with (acute) exacerbation (principal); J96.21 Acute and chronic respiratory failure with hypoxia; I50.32 Chronic diastolic (congestive) heart failure; E87.20 Acidosis, unspecified; Z68.41 Body mass index [BMI] 40.0-44.9, adult; E66.01 Morbid (severe) obesity due to excess calories; E11.9 Type 2 diabetes mellitus without complications; I27.20 Pulmonary hypertension, unspecified; I11.0 Hypertensive heart disease with heart failure; K21.9 Gastro-esophageal reflux disease without esophagitis; G47.33 Obstructive sleep apnea (adult) (pediatric); Z99.81 Dependence on supplemental oxygen; Z88.8 Allergy status to other drugs, medicaments and biological substances; Z88.0 Allergy status to penicillin; Z88.2 Allergy status to sulfonamides; Z79.82 Long term (current) 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; Z79.899 Other long term (current) drug therapy; Z79.4 Long term (current) use of insulin; Z79.52 Long term (current) use of systemic steroids; Z87.891 Personal history of nicotine dependence

== ENCOUNTER 2023-10-30 22:41 | Emergency (ER) | payer MEDICARE ==
[~2023-10-30] VITALS: Ht 152.4 cm; Wt 112.7 kg
[2023-10-30 22:58] VITALS: TEMP 96.2
[2023-10-30] MEDS ORDERED: IPRATROPIUM 0.5MG/ALBUTEROL 2.5MG INH SOL UD 3ML (DUONEB) NEB PRN (23:00)
[2023-10-30] MEDS: IPRATROPIUM 0.5MG/ALBUTEROL 2.5MG INH SOL UD 3ML (DUONEB) NEB ONE (23:09)
[2023-10-30 23:20] LABS: VENOUS BASE EXCESS 0.4 (-2.0-2.0); VENOUS O2 SATURATION 82.1 % (60.0-80.0); VENOUS PARTIAL PRESSURE CO2 56.7 mmHg (38.0-50.0); VENOUS PARTIAL PRESSURE O2 49.3 mmHg (30.0-50.0); VENOUS PH 7.312 UNITS (7.330-7.430); VENOUS STANDARD HCO3 24.4 MMOL/L; VENOUS TOTAL CO2 29.8 MMOL/L (24.0-28.0)
[2023-10-30 23:27] LABS: BASO # 0.1 10^3/uL (0.0-0.2); BASO % 0.4 % (0.0-1.0); EOS # 0.1 10^3/uL (0.0-0.5); EOS % 0.7 % (0.0-3.0); HEMATOCRIT 47.2 % (36.0-47.0); HEMOGLOBIN 14.8 g/dl (12.0-15.5); LYMPH # 4.2 10^3/uL (1.5-5.0); LYMPH % 26.2 % (24.0-44.0); MEAN CORPUSCULAR HEMOGLOBIN 26.7 pg (27.0-33.0); MEAN CORPUSCULAR HGB CONC 31.4 g/dl (32.0-36.5); MEAN CORPUSCULAR VOLUME 85.2 fl (80.0-96.0); MONO # 0.7 10^3/uL (0.0-0.8); MONO % 4.5 % (2.0-8.0); NEUTROPHILS # 10.5 10^3/uL (1.5-8.5); NEUTROPHILS % 65.4 % (36.0-66.0); PLATELET COUNT, AUTOMATED 232 10^3/uL (150-450); RED BLOOD COUNT 5.54 10^6/uL (4.00-5.40); WHITE BLOOD COUNT 16.1 10^3/uL (4.0-10.0)
[2023-10-30 23:49] LABS: CK-MB VALUE MASS < 1.0 NG/ML (<3.6)
[2023-10-30 23:52] LABS: ALBUMIN 3.5 G/DL (3.2-5.2); ALKALINE PHOSPHATASE 105 U/L (46-116); ALT/SGPT 59 U/L (7.0-40); AST/SGOT 20 U/L (<34); BILIRUBIN,DIRECT 0.2 MG/DL (<0.4); BILIRUBIN,TOTAL 0.6 MG/DL (0.3-1.2); BLOOD UREA NITROGEN 23 MG/DL (9-23); CALCIUM LEVEL 9.6 MG/DL (8.3-10.6); CARBON DIOXIDE LEVEL 28 MMOL/L (20-31); CHLORIDE LEVEL 110 MMOL/L (98-107); CREATININE FOR GFR 1.08 MG/DL (0.55-1.30); GLOMERULAR FILTRATION RATE 53.9 (>45); GLUCOSE, FASTING 174 MG/DL (74-106); POTASSIUM SERUM 4.1 MMOL/L (3.5-5.1); SODIUM LEVEL 144 MMOL/L (136-145); TOTAL PROTEIN 6.2 G/DL (5.7-8.2)
[2023-10-30 23:54] LABS: THYROID STIMULATING HORMONE 4.169 uIU/ML (0.55-4.78)
[2023-10-30 23:59] LABS: CPK CREATINE PHOSPHOKINASE 34 U/L (34-145); MB/CK RELATIVE INDEX 2.94 (< OR =4)
[2023-10-31] MEDS ORDERED: PRED20TA PO (01:33)
[2023-10-31] MEDS ORDERED: CEFU50TA PO (01:33)
[2023-10-31 02:01] VITALS: BP 153/88
[2023-10-31] MEDS: CEFUROXIME 500 MG TAB PO ONE (02:09)
[2023-10-31] MEDS: CEFUROXIME 500 MG TAB PO STA (02:09)
[2023-10-31] MEDS: predniSONE 20 MG TAB PO ONE (02:10)
[2023-10-31 02:11] VITALS: O2SAT 97
== END 2023-10-31 02:21 | disposition home or self-care (01) ==
LOC: M ED 22:41
DX: J44.1 Chronic obstructive pulmonary disease with (acute) exacerbation (principal); R00.0 Tachycardia, unspecified; I49.1 Atrial premature depolarization; E11.9 Type 2 diabetes mellitus without complications; K21.9 Gastro-esophageal reflux disease without esophagitis; E78.5 Hyperlipidemia, unspecified; Z86.79 Personal history of other diseases of the circulatory system; Z79.84 Long term (current) use of oral hypoglycemic drugs; Z90.89 Acquired absence of other organs; Z88.0 Allergy status to penicillin; Z88.1 Allergy status to other antibiotic agents; Z88.2 Allergy status to sulfonamides; Z88.8 Allergy status to other drugs, medicaments and biological substances; Z79.52 Long term (current) use of systemic steroids; Z79.82 Long term (current) 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; Z79.02 Long term (current) use of antithrombotics/antiplatelets; Z79.899 Other long term (current) drug therapy
CPT/HCPCS: 36415; 71045; 80048; 80076; 82550; 82553; 82803; 83880; 84443; 84484; 85025; 87040; 87486; 87581; 87633; 87798; 93005; 93041; 94640; 94660; 94760; 99285; J7512

== ENCOUNTER 2023-11-09 17:06 | Inpatient (IN) | payer MEDICARE ==
[~2023-11-09] VITALS: Ht 170.2 cm; Wt 114.5 kg
[~2023-11-09 17:06] MED LIST changes: -FLON1SPR
[2023-11-09 17:38] LABS: HEMATOCRIT 46.9 % (36.0-47.0); HEMOGLOBIN 14.8 g/dl (12.0-15.5); MEAN CORPUSCULAR HEMOGLOBIN 26.9 pg (27.0-33.0); MEAN CORPUSCULAR HGB CONC 31.6 g/dl (32.0-36.5); MEAN CORPUSCULAR VOLUME 85.1 fl (80.0-96.0); PLATELET COUNT, AUTOMATED 242 10^3/uL (150-450); RED BLOOD COUNT 5.51 10^6/uL (4.00-5.40); WHITE BLOOD COUNT 17.5 10^3/uL (4.0-10.0)
[2023-11-09 17:59] LABS: CK-MB VALUE MASS < 1.0 NG/ML (<3.6)
[2023-11-09 18:00] LABS: ALBUMIN 3.6 G/DL (3.2-5.2); ALKALINE PHOSPHATASE 117 U/L (46-116); ALT/SGPT 80 U/L (7.0-40); AST/SGOT 9 U/L (<34); BILIRUBIN,DIRECT 0.2 MG/DL (<0.4); BILIRUBIN,TOTAL 0.6 MG/DL (0.3-1.2); BLOOD UREA NITROGEN 24 MG/DL (9-23); CALCIUM LEVEL 10.5 MG/DL (8.3-10.6); CARBON DIOXIDE LEVEL 30 MMOL/L (20-31); CHLORIDE LEVEL 108 MMOL/L (98-107); CPK CREATINE PHOSPHOKINASE 36 U/L (34-145); CREATININE FOR GFR 0.73 MG/DL (0.55-1.30); GLOMERULAR FILTRATION RATE > 60.0 (>45); GLUCOSE, FASTING 250 MG/DL (74-106); MB/CK RELATIVE INDEX 2.77 (< OR =4); POTASSIUM SERUM 4.8 MMOL/L (3.5-5.1); SODIUM LEVEL 143 MMOL/L (136-145); TOTAL PROTEIN 6.4 G/DL (5.7-8.2)
[2023-11-09 18:03] VITALS: O2SAT 99
[2023-11-09 18:20] LABS: ATYPICAL LYMPH 4 % (0-5); LYMPHOCYTES 19 % (16-44); METAMYELOCYTES 2 % (0-0); MONOCYTES 5 % (0-5); NEUTROPHILS 68 % (28-66)
[2023-11-09 18:21] LABS: ANISOCYTOSIS 1+; HYPERSEGMENTED POLYS 1+; PLATELET ESTIMATE NORMAL (NORMAL)
[2023-11-09 18:44] LABS: ABG HCO3 25.7 MMOL/L (22.0-26.0); ABG O2 SATURATION 98.3 % (95.0-99.0); ABG PARTIAL PRESSURE CO2 45.3 mmHg (35.0-45.0); ABG PARTIAL PRESSURE O2 124.1 mmHg (75.0-100.0); ABG STANDARD HCO3 24.5 MMOL/L. (22.0-26.0); ABG pH (ARTERIAL) 7.371 UNITS (7.350-7.450)
[2023-11-09] MEDS: IPRATROPIUM 0.5MG/ALBUTEROL 2.5MG INH SOL UD 3ML (DUONEB) NEB ONE (19:36)
[2023-11-09] MEDS ORDERED: GLUCOSE 4 GM CHEW PO PRN (19:40)
[2023-11-09] MEDS: methylPREDNISolone 125MG 2ML VIAL IV ONE (19:40)
[2023-11-09] MEDS ORDERED: DEXTROSE 50% 50ML SYRINGE IV PRN (19:40)
[2023-11-09] MEDS ORDERED: GLUCAGON INJ 1MG VIAL SC PRN (19:40)
[2023-11-09] MEDS: IPRATROPIUM 0.5MG/ALBUTEROL 2.5MG INH SOL UD 3ML (DUONEB) NEB SCH (19:46)
[2023-11-09] MEDS: INSULIN LISPRO (NovoLOG) PER UNIT SC SCH (21:00)
[2023-11-09 21:01] LABS: C REACTIVE PROTEIN QUANTITATIV < 0.40 MG/DL (<1.0)
[2023-11-09 21:09] LABS: PROCALCITONIN <0.04 ng/ml
[2023-11-09] MEDS ORDERED: HOME MED LIST COMPLETE! XX SCH (21:10)
[2023-11-09] MEDS: ACETAMINOPH W/CODEINE #3 TAB UD PO PRN (22:18)
[2023-11-09] MEDS ORDERED: PRED20TA PO (22:40)
[2023-11-09] MEDS ORDERED: CEFU50TA PO (22:40)
[2023-11-10 02:50] VITALS: BP 140/96; TEMP 97.5; O2SAT 100
[2023-11-10] MEDS ORDERED: ONDANSETRON 4MG TAB PO PRN (03:40)
[2023-11-10] MEDS ORDERED: NICOTINE 21MG/24HR 1 EA TRANSDERMAL TD PRN (03:40)
[2023-11-10 06:03] LABS: HEMATOCRIT 42.3 % (36.0-47.0); HEMOGLOBIN 13.5 g/dl (12.0-15.5); MEAN CORPUSCULAR HEMOGLOBIN 27.3 pg (27.0-33.0); MEAN CORPUSCULAR HGB CONC 31.9 g/dl (32.0-36.5); MEAN CORPUSCULAR VOLUME 85.6 fl (80.0-96.0); PLATELET COUNT, AUTOMATED 203 10^3/uL (150-450); RED BLOOD COUNT 4.94 10^6/uL (4.00-5.40); WHITE BLOOD COUNT 13.2 10^3/uL (4.0-10.0)
[2023-11-10 06:36] LABS: BLOOD UREA NITROGEN 24 MG/DL (9-23); CALCIUM LEVEL 9.6 MG/DL (8.3-10.6); CARBON DIOXIDE LEVEL 27 MMOL/L (20-31); CHLORIDE LEVEL 108 MMOL/L (98-107); CREATININE FOR GFR 0.59 MG/DL (0.55-1.30); GLOMERULAR FILTRATION RATE > 60.0 (>45); GLUCOSE, FASTING 302 MG/DL (74-106); POTASSIUM SERUM 4.5 MMOL/L (3.5-5.1); SODIUM LEVEL 139 MMOL/L (136-145)
[2023-11-10] MEDS: SYMBICORT 160/4.5MCG INHALER 6GM INH SCH (07:19)
[2023-11-10] MEDS: TIOTROPIUM INHALER/CAPSULE (SPIRIVA) INH SCH (07:19)
[2023-11-10] MEDS: NYSTATIN 100,000 UNITS/GM TOPICAL PWD 15GM TOP SCH (08:27)
[2023-11-10] MEDS: FLUTICASONE PROP 0.05% NASAL SPRAY 16 GM (FLONASE) NARES SCH (08:27)
[2023-11-10] MEDS: MIRALAX *UNIT DOSE* 17GM PACKET PO SCH (08:27)
[2023-11-10] MEDS: predniSONE 20 MG TAB PO SCH (08:27)
[2023-11-10] MEDS: ASPIRIN 81MG ENTERIC TABLET PO SCH (08:27)
[2023-11-10] MEDS: FUROSEMIDE 40 MG TAB PO SCH (08:28)
[2023-11-10] MEDS: PANTOPRAZOLE 40MG TAB (PROTONIX) PO SCH (08:28)
[2023-11-10] MEDS: ATORVASTATIN 20 MG TAB PO SCH (08:28)
[2023-11-10] MEDS: INSULIN LISPRO (NovoLOG) PER UNIT SC SCH (08:28)
[2023-11-10] MEDS: LEVEMIR (INSULIN DETEMIR) 1 UNITS/0.01ML SC SCH (08:29)
[2023-11-10] MEDS ORDERED: ENOXAPARIN 40MG/0.4ML SYRINGE (J1650 PER 10MG) SC SCH (09:00)
[2023-11-10 12:00] VITALS: BP 138/94; TEMP 98.2; O2SAT 92
[2023-11-10] MEDS: IPRATROPIUM 0.5MG/ALBUTEROL 2.5MG INH SOL UD 3ML (DUONEB) NEB PRN (15:56)
[2023-11-10] MEDS: RIVAROXABAN 10MG TAB (XARELTO) PO SCH (17:32)
[2023-11-10 19:57] VITALS: BP 123/67; TEMP 97.3; O2SAT 97
[2023-11-10] MEDS: ANALGESIC BALM CRM 3OZ TOP PRN (21:26)
[2023-11-10] MEDS: CEFDINIR 250MG/5ML 60ML SUSP BTL PO SCH (21:27)
[2023-11-10] MEDS: methocarbamoL 750 MG TAB PO PRN (23:49)
[2023-11-11 03:10] VITALS: BP 136/84; TEMP 97.7; O2SAT 99
[2023-11-11] MEDS: MORPHINE 2 MG/ML 1ML VIAL IV ONE (03:47)
[2023-11-11] MEDS: MELOXICAM (MOBIC) 7.5 MG TAB PO SCH (04:19)
[2023-11-11] MEDS ORDERED: INSULIN LISPRO (NovoLOG) PER UNIT SC SCH (07:30)
[2023-11-11 08:20] VITALS: BP 138/84
[2023-11-11] MEDS: LEVEMIR (INSULIN DETEMIR) 1 UNITS/0.01ML SC SCH (08:29)
[2023-11-11] MEDS: INSULIN LISPRO (NovoLOG) PER UNIT SC SCH ×2 (08:29→08:30)
[2023-11-11] MEDS ORDERED: LEVEMIR (INSULIN DETEMIR) 1 UNITS/0.01ML SC SCH (09:00)
[2023-11-11] MEDS: LIDOCAINE 5% (LIDODERM) PATCH TD SCH ×2 (10:00→12:07)
[2023-11-11 12:31] VITALS: BP 131/91; TEMP 96.8; O2SAT 98
[2023-11-11 20:06] VITALS: BP 136/83; TEMP 97.3; O2SAT 98
[2023-11-12 04:32] VITALS: BP 138/75; TEMP 97; O2SAT 98
[2023-11-12 06:42] LABS: BASO % 0.4 % (0.0-1.0); EOS # 0.1 10^3/uL (0.0-0.5); EOS % 0.5 % (0.0-3.0); HEMOGLOBIN 11.9 g/dl (12.0-15.5); LYMPH # 1.9 10^3/uL (1.5-5.0); LYMPH % 17.8 % (24.0-44.0); MEAN CORPUSCULAR HEMOGLOBIN 26.8 pg (27.0-33.0); MEAN CORPUSCULAR HGB CONC 30.5 g/dl (32.0-36.5); MEAN CORPUSCULAR VOLUME 87.8 fl (80.0-96.0); MONO # 0.5 10^3/uL (0.0-0.8); MONO % 4.1 % (2.0-8.0); NEUTROPHILS # 8.1 10^3/uL (1.5-8.5); NEUTROPHILS % 73.7 % (36.0-66.0); PLATELET COUNT, AUTOMATED 170 10^3/uL (150-450); RED BLOOD COUNT 4.44 10^6/uL (4.00-5.40); WHITE BLOOD COUNT 10.9 10^3/uL (4.0-10.0)
[2023-11-12 07:21] LABS: BLOOD UREA NITROGEN 37 MG/DL (9-23); CARBON DIOXIDE LEVEL 29 MMOL/L (20-31); CHLORIDE LEVEL 107 MMOL/L (98-107); CREATININE FOR GFR 0.74 MG/DL (0.55-1.30); GLOMERULAR FILTRATION RATE > 60.0 (>45); GLUCOSE, FASTING 166 MG/DL (74-106); POTASSIUM SERUM 4.2 MMOL/L (3.5-5.1); SODIUM LEVEL 141 MMOL/L (136-145)
[2023-11-12 12:00] VITALS: BP 138/76; TEMP 97; O2SAT 98
[2023-11-12] MEDS ORDERED: CEFD250S26 PO (14:46)
[2023-11-13] MEDS ORDERED: CEFD250S26 PO (13:39)
[2023-11-13] MEDS ORDERED: LIDO5TD TOP (13:48)
== END 2023-11-12 16:58 | disposition home or self-care (01) | DRG 190 ==
LOC: M ED 17:06 → EDBD 17:06 → M ED INP 19:36 → M MSPAV 11-10 02:37
PROVIDERS: ADMIT Internal Medicine; ATTEND Internal Medicine Nephrology
DX: J44.1 Chronic obstructive pulmonary disease with (acute) exacerbation (principal); J96.21 Acute and chronic respiratory failure with hypoxia; I50.32 Chronic diastolic (congestive) heart failure; E66.2 Morbid (severe) obesity with alveolar hypoventilation; I27.20 Pulmonary hypertension, unspecified; K21.9 Gastro-esophageal reflux disease without esophagitis; I11.0 Hypertensive heart disease with heart failure; Z99.81 Dependence on supplemental oxygen; M54.59 Other low back pain; K64.8 Other hemorrhoids; E11.9 Type 2 diabetes mellitus without complications; K57.90 Diverticulosis of intestine, part unspecified, without perforation or abscess without bleeding; K44.9 Diaphragmatic hernia without obstruction or gangrene; Z88.0 Allergy status to penicillin; Z88.8 Allergy status to other drugs, medicaments and biological substances; Z88.2 Allergy status to sulfonamides; Z79.82 Long term (current) 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; Z79.899 Other long term (current) drug therapy; F17.200 Nicotine dependence, unspecified, uncomplicated

== ENCOUNTER 2023-11-13 08:20 | Inpatient (IN) | payer MEDICARE ==
[2023-11-12 14:05] VITALS: BP 147/71; TEMP 97; O2SAT 95
[~2023-11-13] VITALS: Ht 170.2 cm; Wt 116.0 kg
[~2023-11-13 08:20] MED LIST changes: +CEFD250S26 PO
[2023-11-13] MEDS: ALBUTEROL SULFATE 2.5MG/0.5ML INH NEB SOLN INH ONE (08:33)
[2023-11-13] MEDS: IPRATROPIUM 0.5MG/ALBUTEROL 2.5MG INH SOL UD 3ML (DUONEB) NEB ONE (08:33)
[2023-11-13 08:52] LABS: ABG BASE EXCESS 5.1 (-2.0-2.0); ABG HCO3 30.1 MMOL/L (22.0-26.0); ABG O2 SATURATION 97.6 % (95.0-99.0); ABG PARTIAL PRESSURE CO2 45.8 mmHg (35.0-45.0); ABG TOTAL CO2 31.5 MMOL/L (23.0-31.0); ABG pH (ARTERIAL) 7.436 UNITS (7.350-7.450)
[2023-11-13] MEDS: methylPREDNISolone 125MG 2ML VIAL IV ONE (08:56)
[2023-11-13 09:00] LABS: BASO # 0.1 10^3/uL (0.0-0.2); BASO % 0.4 % (0.0-1.0); EOS # 0.1 10^3/uL (0.0-0.5); EOS % 0.8 % (0.0-3.0); HEMATOCRIT 43.8 % (36.0-47.0); LYMPH % 21.2 % (24.0-44.0); MEAN CORPUSCULAR HEMOGLOBIN 27.2 pg (27.0-33.0); MEAN CORPUSCULAR VOLUME 85.2 fl (80.0-96.0); MONO # 0.6 10^3/uL (0.0-0.8); MONO % 4.1 % (2.0-8.0); NEUTROPHILS # 9.7 10^3/uL (1.5-8.5); NEUTROPHILS % 68.6 % (36.0-66.0); PLATELET COUNT, AUTOMATED 202 10^3/uL (150-450); RED BLOOD COUNT 5.14 10^6/uL (4.00-5.40); WHITE BLOOD COUNT 14.2 10^3/uL (4.0-10.0)
[2023-11-13] MEDS: ALBUTEROL SULFATE 2.5MG/0.5ML INH NEB SOLN NEB ONE (09:08)
[2023-11-13] MEDS ORDERED: ISOVUE-370 76% 100ML VIAL As Ordered ONE (09:33)
[2023-11-13 09:34] LABS: THYROID STIMULATING HORMONE 1.533 uIU/ML (0.55-4.78)
[2023-11-13 09:35] LABS: THYROXINE (T4) 7.3 UG/DL (4.5-10.9)
[2023-11-13 09:41] LABS: ALBUMIN 3.3 G/DL (3.2-5.2); ALKALINE PHOSPHATASE 132 U/L (46-116); ALT/SGPT 237 U/L (7.0-40); AST/SGOT 52 U/L (<34); BILIRUBIN,DIRECT 0.3 MG/DL (<0.4); BILIRUBIN,TOTAL 0.9 MG/DL (0.3-1.2); BLOOD UREA NITROGEN 39 MG/DL (9-23); CALCIUM LEVEL 9.7 MG/DL (8.3-10.6); CARBON DIOXIDE LEVEL 31 MMOL/L (20-31); CHLORIDE LEVEL 108 MMOL/L (98-107); CK-MB VALUE MASS < 1.0 NG/ML (<3.6); CPK CREATINE PHOSPHOKINASE 61 U/L (34-145); CREATININE FOR GFR 0.66 MG/DL (0.55-1.30); GLOMERULAR FILTRATION RATE > 60.0 (>45); GLUCOSE, FASTING 102 MG/DL (74-106); MB/CK RELATIVE INDEX 1.63 (< OR =4); POTASSIUM SERUM 5.1 MMOL/L (3.5-5.1); SODIUM LEVEL 145 MMOL/L (136-145); TOTAL PROTEIN 6.1 G/DL (5.7-8.2)
[2023-11-13 10:23] LABS: CK-MB VALUE MASS < 1.0 NG/ML (<3.6)
[2023-11-13 10:24] LABS: CPK CREATINE PHOSPHOKINASE 39 U/L (34-145); MB/CK RELATIVE INDEX 2.56 (< OR =4)
[2023-11-13] MEDS: ACETAMINOPH W/CODEINE #3 TAB UD PO ONE (11:04)
[2023-11-13] MEDS ORDERED: **NOTE PATIENT COMMENT** MISC XX SCH (12:25)
[2023-11-13] MEDS: IPRATROPIUM 0.5MG/ALBUTEROL 2.5MG INH SOL UD 3ML (DUONEB) NEB SCH (13:10)
[2023-11-13] MEDS ORDERED: CEFD250S26 PO (13:39)
[2023-11-13] MEDS ORDERED: LIDO5TD TOP (13:48)
[2023-11-13] MEDS ORDERED: HOME MED LIST COMPLETE! XX SCH (13:55)
[2023-11-13] MEDS ORDERED: GLUCAGON INJ 1MG VIAL SC PRN (13:55)
[2023-11-13] MEDS ORDERED: GLUCOSE 4 GM CHEW PO PRN (13:55)
[2023-11-13] MEDS ORDERED: DEXTROSE 50% 50ML SYRINGE IV PRN (13:55)
[2023-11-13] MEDS ORDERED: ONDANSETRON 4MG TAB PO PRN (13:55)
[2023-11-13 15:43] VITALS: BP 158/80; TEMP 97.5; O2SAT 96
[2023-11-13] MEDS: ASPIRIN 81MG ENTERIC TABLET PO SCH (16:53)
[2023-11-13] MEDS: FUROSEMIDE 40 MG TAB PO SCH (16:54)
[2023-11-13] MEDS: ATORVASTATIN 20 MG TAB PO SCH (16:54)
[2023-11-13] MEDS: INSULIN LISPRO (NovoLOG) PER UNIT SC SCH ×2 (17:39→20:53)
[2023-11-13] MEDS: ACETAMINOPH W/CODEINE #3 TAB UD PO PRN (18:03)
[2023-11-13 19:29] VITALS: BP 142/69; TEMP 97; O2SAT 95
[2023-11-13] MEDS: SYMBICORT 160/4.5MCG INHALER 6GM INH SCH (19:46)
[2023-11-13] MEDS: NYSTATIN 100,000 UNITS/GM TOPICAL PWD 15GM TOP SCH (20:52)
[2023-11-13] MEDS: MIRALAX *UNIT DOSE* 17GM PACKET PO SCH (20:52)
[2023-11-13] MEDS: LEVEMIR (INSULIN DETEMIR) 1 UNITS/0.01ML SC SCH (20:53)
[2023-11-13] MEDS: ENOXAPARIN 40MG/0.4ML SYRINGE (J1650 PER 10MG) SC SCH (20:53)
[2023-11-13] MEDS: PANTOPRAZOLE 40MG TAB (PROTONIX) PO SCH (20:54)
[2023-11-13] MEDS: guaiFENesin ER TABLET 600 MG TAB PO SCH (20:54)
[2023-11-13] MEDS: CEFDINIR 250MG/5ML 60ML SUSP BTL PO SCH (20:57)
[2023-11-13] MEDS: IPRATROPIUM 0.5MG/ALBUTEROL 2.5MG INH SOL UD 3ML (DUONEB) NEB PRN (21:31)
[2023-11-13 23:46] VITALS: BP 119/66; TEMP 97.1; O2SAT 100
[2023-11-14 03:24] VITALS: BP 134/83; TEMP 97.7; O2SAT 100
[2023-11-14 05:22] LABS: HEMATOCRIT 38.9 % (36.0-47.0); HEMOGLOBIN 12.3 g/dl (12.0-15.5); MEAN CORPUSCULAR HEMOGLOBIN 27.4 pg (27.0-33.0); MEAN CORPUSCULAR HGB CONC 31.6 g/dl (32.0-36.5); MEAN CORPUSCULAR VOLUME 86.6 fl (80.0-96.0); PLATELET COUNT, AUTOMATED 170 10^3/uL (150-450); RED BLOOD COUNT 4.49 10^6/uL (4.00-5.40)
[2023-11-14 05:43] LABS: BLOOD UREA NITROGEN 37 MG/DL (9-23); CALCIUM LEVEL 9.1 MG/DL (8.3-10.6); CARBON DIOXIDE LEVEL 31 MMOL/L (20-31); CHLORIDE LEVEL 106 MMOL/L (98-107); CREATININE FOR GFR 0.71 MG/DL (0.55-1.30); GLOMERULAR FILTRATION RATE > 60.0 (>45); GLUCOSE, FASTING 262 MG/DL (74-106); MAGNESIUM LEVEL 2.1 MG/DL (1.8-2.4); POTASSIUM SERUM 4.1 MMOL/L (3.5-5.1); SODIUM LEVEL 142 MMOL/L (136-145)
[2023-11-14 07:32] VITALS: BP 147/70; TEMP 97.3; O2SAT 99
[2023-11-14] MEDS: FLUTICASONE PROP 0.05% NASAL SPRAY 16 GM (FLONASE) NARES SCH (08:59)
[2023-11-14] MEDS: LIDOCAINE 5% (LIDODERM) PATCH TD SCH (09:00)
[2023-11-14] MEDS: MELOXICAM (MOBIC) 7.5 MG TAB PO SCH (09:04)
[2023-11-14] MEDS: predniSONE 20 MG TAB PO SCH (09:04)
[2023-11-14] MEDS: NICOTINE 21MG/24HR 1 EA TRANSDERMAL TD PRN (10:10)
[2023-11-14 14:54] VITALS: O2SAT 5; O2SAT 90
== END 2023-11-14 18:30 | disposition home or self-care (01) | DRG 920 ==
LOC: M ED 08:20 → EDBD 08:20 → M ED INP 12:21 → M PCU 14:04 → OBSVTOIN 11-14 11:17
PROVIDERS: ADMIT Family Medicine; ATTEND Family Medicine
DX: T81.8 Other complications of procedures, not elsewhere classified (principal); I50.32 Chronic diastolic (congestive) heart failure; J96.11 Chronic respiratory failure with hypoxia; G47.33 Obstructive sleep apnea (adult) (pediatric); I27.20 Pulmonary hypertension, unspecified; I11.0 Hypertensive heart disease with heart failure; J44.9 Chronic obstructive pulmonary disease, unspecified; E11.9 Type 2 diabetes mellitus without complications; K21.9 Gastro-esophageal reflux disease without esophagitis; Z99.81 Dependence on supplemental oxygen; E66.01 Morbid (severe) obesity due to excess calories; Z87.891 Personal history of nicotine dependence; Z68.38 Body mass index [BMI] 38.0-38.9, adult; Y84.8 Other medical procedures as the cause of abnormal reaction of the patient, or of later complication, without mention of misadventure at the time of the procedure

== ENCOUNTER 2023-11-25 15:18 | Emergency (ER) | payer MEDICARE ==
[~2023-11-25] VITALS: Ht 170.2 cm; Wt 261.7 kg
[~2023-11-25 15:18] MED LIST changes: +LIDO5TD TOP
[2023-11-25 16:45] LABS: BASO # 0.1 10^3/uL (0.0-0.2); BASO % 0.4 % (0.0-1.0); EOS # 0.1 10^3/uL (0.0-0.5); EOS % 0.7 % (0.0-3.0); HEMATOCRIT 44.4 % (36.0-47.0); HEMOGLOBIN 13.6 g/dl (12.0-15.5); LYMPH % 21.5 % (24.0-44.0); MEAN CORPUSCULAR HEMOGLOBIN 27.1 pg (27.0-33.0); MEAN CORPUSCULAR HGB CONC 30.6 g/dl (32.0-36.5); MEAN CORPUSCULAR VOLUME 88.4 fl (80.0-96.0); MONO # 0.7 10^3/uL (0.0-0.8); MONO % 5.3 % (2.0-8.0); NEUTROPHILS # 9.4 10^3/uL (1.5-8.5); NEUTROPHILS % 67.8 % (36.0-66.0); PLATELET COUNT, AUTOMATED 193 10^3/uL (150-450); RED BLOOD COUNT 5.02 10^6/uL (4.00-5.40); WHITE BLOOD COUNT 13.8 10^3/uL (4.0-10.0)
[2023-11-25] MEDS: ACETAMINOPHEN TAB 650MG DOSE (2X325MG) PO ONE (16:52)
[2023-11-25 17:05] LABS: BLOOD UREA NITROGEN 34 MG/DL (9-23); CALCIUM LEVEL 10.1 MG/DL (8.3-10.6); CARBON DIOXIDE LEVEL 30 MMOL/L (20-31); CHLORIDE LEVEL 110 MMOL/L (98-107); CREATININE FOR GFR 0.79 MG/DL (0.55-1.30); GLOMERULAR FILTRATION RATE > 60.0 (>45); GLUCOSE, FASTING 99 MG/DL (74-106); POTASSIUM SERUM 4.7 MMOL/L (3.5-5.1); SODIUM LEVEL 143 MMOL/L (136-145)
[2023-11-25 17:10] LABS: INR 0.95; PROTHROMBIN TIME 12.4 SECONDS (12.5-14.5)
[2023-11-25] MEDS: LIDOCAINE 5% (LIDODERM) PATCH TD ONE (17:45)
[2023-11-25 20:21] VITALS: BP 114/55; TEMP 97.1; O2SAT 98
== END 2023-11-25 20:24 | disposition home or self-care (01) ==
LOC: M ED 15:18 → EDBD 15:18 → M ED 20:24
DX: M25.562 Pain in left knee (principal); E11.9 Type 2 diabetes mellitus without complications; I10 Essential (primary) hypertension; K21.9 Gastro-esophageal reflux disease without esophagitis; G47.33 Obstructive sleep apnea (adult) (pediatric); J44.9 Chronic obstructive pulmonary disease, unspecified; E66.9 Obesity, unspecified; F17.200 Nicotine dependence, unspecified, uncomplicated; Z86.79 Personal history of other diseases of the circulatory system; Z90.89 Acquired absence of other organs; Z88.0 Allergy status to penicillin; Z88.1 Allergy status to other antibiotic agents; Z88.2 Allergy status to sulfonamides; Z88.8 Allergy status to other drugs, medicaments and biological substances; Z79.52 Long term (current) use of systemic steroids; Z79.82 Long term (current) 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; Z79.83 Long term (current) use of bisphosphonates; Z79.899 Other long term (current) drug therapy; Z79.4 Long term (current) use of insulin

== ENCOUNTER 2023-11-28 19:47 | Inpatient (IN) | payer MEDICARE, MEDICAID ==
[~2023-11-28] VITALS: Ht 170.2 cm; Wt 117.1 kg
[2023-11-28] MEDS: SYMBICORT 160/4.5MCG INHALER 6GM INH SCH (20:00)
[2023-11-28] MEDS: IPRATROPIUM 0.5MG/ALBUTEROL 2.5MG INH SOL UD 3ML (DUONEB) NEB PRN (20:24)
[2023-11-28 20:31] LABS: ABG BASE EXCESS -1.4 (-2.0-2.0); ABG HCO3 23.8 MMOL/L (22.0-26.0); ABG O2 SATURATION 98.3 % (95.0-99.0); ABG PARTIAL PRESSURE CO2 41.8 mmHg (35.0-45.0); ABG PARTIAL PRESSURE O2 118.6 mmHg (75.0-100.0); ABG STANDARD HCO3 23.3 MMOL/L. (22.0-26.0); ABG TOTAL CO2 25.1 MMOL/L (23.0-31.0); ABG pH (ARTERIAL) 7.373 UNITS (7.350-7.450)
[2023-11-28 21:11] LABS: BASO % 0.4 % (0.0-1.0); EOS # 0.1 10^3/uL (0.0-0.5); EOS % 0.6 % (0.0-3.0); HEMOGLOBIN 11.8 g/dl (12.0-15.5); LYMPH # 1.2 10^3/uL (1.5-5.0); LYMPH % 15.6 % (24.0-44.0); MEAN CORPUSCULAR HEMOGLOBIN 27.9 pg (27.0-33.0); MEAN CORPUSCULAR HGB CONC 31.1 g/dl (32.0-36.5); MEAN CORPUSCULAR VOLUME 89.8 fl (80.0-96.0); MONO # 0.4 10^3/uL (0.0-0.8); MONO % 5.1 % (2.0-8.0); NEUTROPHILS # 5.8 10^3/uL (1.5-8.5); PLATELET COUNT, AUTOMATED 160 10^3/uL (150-450); RED BLOOD COUNT 4.23 10^6/uL (4.00-5.40); WHITE BLOOD COUNT 7.8 10^3/uL (4.0-10.0)
[2023-11-28 21:25] LABS: INR 0.93; PROTHROMBIN TIME 12.2 SECONDS (12.5-14.5)
[2023-11-28 21:39] LABS: THYROID STIMULATING HORMONE 1.099 uIU/ML (0.55-4.78)
[2023-11-28 21:44] LABS: ALBUMIN 2.8 G/DL (3.2-5.2); ALKALINE PHOSPHATASE 139 U/L (46-116); ALT/SGPT 100 U/L (7.0-40); AST/SGOT 53 U/L (<34); BILIRUBIN,DIRECT 0.2 MG/DL (<0.4); BILIRUBIN,TOTAL 0.6 MG/DL (0.3-1.2); BLOOD UREA NITROGEN 23 MG/DL (9-23); CALCIUM LEVEL 8.7 MG/DL (8.3-10.6); CARBON DIOXIDE LEVEL 26 MMOL/L (20-31); CHLORIDE LEVEL 113 MMOL/L (98-107); CK-MB VALUE MASS < 1.0 NG/ML (<3.6); CPK CREATINE PHOSPHOKINASE 45 U/L (34-145); CREATININE FOR GFR 0.83 MG/DL (0.55-1.30); GLOMERULAR FILTRATION RATE > 60.0 (>45); GLUCOSE, FASTING 147 MG/DL (74-106); MB/CK RELATIVE INDEX 2.22 (< OR =4); POTASSIUM SERUM 5.1 MMOL/L (3.5-5.1); SODIUM LEVEL 144 MMOL/L (136-145); TOTAL PROTEIN 5.3 G/DL (5.7-8.2)
[2023-11-28] MEDS ORDERED: ISOVUE-370 76% 100ML VIAL As Ordered ONE (21:50)
[2023-11-28 22:38] LABS: CK-MB VALUE MASS < 1.0 NG/ML (<3.6)
[2023-11-28 22:40] LABS: CPK CREATINE PHOSPHOKINASE 29 U/L (34-145); MB/CK RELATIVE INDEX 3.44 (< OR =4)
[2023-11-28] MEDS ORDERED: MOM 30ML SUSPENSION UDC PO PRN (23:45)
[2023-11-29] VITALS (17 sets, daily range): BP systolic 117–153; BP diastolic 58–100; TEMP 96.8–97.8; O2SAT 91–99
[2023-11-29] MEDS ORDERED: GLUCAGON INJ 1MG VIAL SC PRN (01:20)
[2023-11-29] MEDS ORDERED: DEXTROSE 50% 50ML SYRINGE IV PRN (01:20)
[2023-11-29] MEDS ORDERED: GLUCOSE 4 GM CHEW PO PRN (01:20)
[2023-11-29] MEDS ORDERED: HOME MED LIST COMPLETE! XX SCH (01:35)
[2023-11-29] MEDS: IPRATROPIUM 0.5MG/ALBUTEROL 2.5MG INH SOL UD 3ML (DUONEB) NEB SCH (01:41)
[2023-11-29] MEDS: methylPREDNISolone 40MG 1ML VIAL IV SCH (02:15)
[2023-11-29 04:35] LABS: HEMOGLOBIN 11.9 g/dl (12.0-15.5); MEAN CORPUSCULAR HEMOGLOBIN 27.2 pg (27.0-33.0); MEAN CORPUSCULAR HGB CONC 30.5 g/dl (32.0-36.5); MEAN CORPUSCULAR VOLUME 89.2 fl (80.0-96.0); PLATELET COUNT, AUTOMATED 164 10^3/uL (150-450); RED BLOOD COUNT 4.37 10^6/uL (4.00-5.40); WHITE BLOOD COUNT 7.5 10^3/uL (4.0-10.0)
[2023-11-29 05:02] LABS: ALBUMIN 2.8 G/DL (3.2-5.2); ALKALINE PHOSPHATASE 142 U/L (46-116); ALT/SGPT 101 U/L (7.0-40); AST/SGOT 27 U/L (<34); BILIRUBIN,TOTAL 0.6 MG/DL (0.3-1.2); BLOOD UREA NITROGEN 19 MG/DL (9-23); CALCIUM LEVEL 8.8 MG/DL (8.3-10.6); CARBON DIOXIDE LEVEL 24 MMOL/L (20-31); CHLORIDE LEVEL 113 MMOL/L (98-107); CREATININE FOR GFR 0.68 MG/DL (0.55-1.30); GLOMERULAR FILTRATION RATE > 60.0 (>45); GLUCOSE, FASTING 254 MG/DL (74-106); POTASSIUM SERUM 4.8 MMOL/L (3.5-5.1); SODIUM LEVEL 144 MMOL/L (136-145); TOTAL PROTEIN 5.3 G/DL (5.7-8.2)
[2023-11-29 05:09] LABS: PROCALCITONIN 0.05 ng/ml
[2023-11-29] MEDS: INSULIN LISPRO (NovoLOG) PER UNIT SC SCH ×2 (07:22→20:26)
[2023-11-29] MEDS: MIRALAX *UNIT DOSE* 17GM PACKET PO SCH (09:22)
[2023-11-29] MEDS: FLUTICASONE PROP 0.05% NASAL SPRAY 16 GM (FLONASE) NARES SCH (09:23)
[2023-11-29] MEDS: NICOTINE 7 MG/24 HR TRANSDERMAL TD SCH (09:23)
[2023-11-29] MEDS: ENOXAPARIN 40MG/0.4ML SYRINGE (J1650 PER 10MG) SC SCH (09:24)
[2023-11-29] MEDS: ASPIRIN 81MG ENTERIC TABLET PO SCH (09:24)
[2023-11-29] MEDS: LEVEMIR (INSULIN DETEMIR) 1 UNITS/0.01ML SC SCH (09:24)
[2023-11-29] MEDS: FUROSEMIDE 40 MG TAB PO SCH (09:25)
[2023-11-29] MEDS: PANTOPRAZOLE 40MG TAB (PROTONIX) PO SCH (09:25)
[2023-11-29] MEDS: ATORVASTATIN 20 MG TAB PO SCH (09:25)
[2023-11-29] MEDS: MELOXICAM (MOBIC) 7.5 MG TAB PO SCH (09:25)
[2023-11-29] MEDS: guaiFENesin ER TABLET 600 MG TAB PO SCH (09:25)
[2023-11-29] MEDS: ACETAMINOPH W/CODEINE #3 TAB UD PO PRN (10:07)
[2023-11-29] MEDS: AZITHROMYCIN SUSP 200MG/5ML 30ML BOTTLE PO SCH (12:00)
[2023-11-29] MEDS: NYSTATIN 100,000 UNITS/GM TOPICAL PWD 15GM TOP SCH (13:01)
[2023-11-29] MEDS ORDERED: ONDANSETRON 4MG TAB PO PRN (13:10)
[2023-11-29] MEDS: LIDOCAINE 5% (LIDODERM) PATCH TD SCH (17:00)
[2023-11-29] MEDS: LIDOCAINE 5% (LIDODERM) PATCH TOP SCH (17:00)
[2023-11-29] MEDS ORDERED: NYSTATIN 100,000 UNITS/GM TOPICAL PWD 15GM TOP SCH (21:00)
[2023-11-30 04:28] VITALS: BP 131/80; TEMP 97.8; O2SAT 98
[2023-11-30 04:51] LABS: HEMATOCRIT 35.4 % (36.0-47.0); MEAN CORPUSCULAR HEMOGLOBIN 27.5 pg (27.0-33.0); MEAN CORPUSCULAR HGB CONC 31.1 g/dl (32.0-36.5); MEAN CORPUSCULAR VOLUME 88.5 fl (80.0-96.0); PLATELET COUNT, AUTOMATED 175 10^3/uL (150-450); WHITE BLOOD COUNT 8.9 10^3/uL (4.0-10.0)
[2023-11-30 05:29] LABS: ALBUMIN 2.7 G/DL (3.2-5.2); ALKALINE PHOSPHATASE 120 U/L (46-116); ALT/SGPT 78 U/L (7.0-40); AST/SGOT 13 U/L (<34); BILIRUBIN,TOTAL 0.5 MG/DL (0.3-1.2); BLOOD UREA NITROGEN 28 MG/DL (9-23); CALCIUM LEVEL 8.9 MG/DL (8.3-10.6); CARBON DIOXIDE LEVEL 26 MMOL/L (20-31); CHLORIDE LEVEL 106 MMOL/L (98-107); CREATININE FOR GFR 0.87 MG/DL (0.55-1.30); GLOMERULAR FILTRATION RATE > 60.0 (>45); GLUCOSE, FASTING 439 MG/DL (74-106); POTASSIUM SERUM 4.6 MMOL/L (3.5-5.1); SODIUM LEVEL 138 MMOL/L (136-145)
[2023-11-30] MEDS: INSULIN LISPRO (NovoLOG) PER UNIT SC STA (05:42)
[2023-11-30 07:55] VITALS: O2SAT 98
[2023-11-30 08:31] VITALS: BP 138/78; TEMP 97.6; O2SAT 95
[2023-11-30] MEDS: LEVEMIR (INSULIN DETEMIR) 1 UNITS/0.01ML SC SCH (08:37)
[2023-11-30 11:30] VITALS: BP 120/78; TEMP 97.8; O2SAT 100
[2023-11-30] MEDS: methylPREDNISolone 40MG 1ML VIAL IV SCH (13:37)
[2023-11-30 14:25] VITALS: BP 126/83; TEMP 97.7; O2SAT 97
[2023-11-30] MEDS: INSULIN LISPRO (NovoLOG) PER UNIT SC SCH (16:57)
[2023-11-30 20:05] VITALS: BP 144/86; TEMP 97.8; O2SAT 98
[2023-11-30] MEDS ORDERED: AZIT500T5 PO (20:09)
[2023-12-01 04:00] VITALS: BP 128/72; TEMP 97.5; O2SAT 95
[2023-12-01 06:17] LABS: HEMATOCRIT 34.2 % (36.0-47.0); HEMOGLOBIN 10.7 g/dl (12.0-15.5); MEAN CORPUSCULAR HEMOGLOBIN 27.8 pg (27.0-33.0); MEAN CORPUSCULAR HGB CONC 31.3 g/dl (32.0-36.5); MEAN CORPUSCULAR VOLUME 88.8 fl (80.0-96.0); PLATELET COUNT, AUTOMATED 178 10^3/uL (150-450); RED BLOOD COUNT 3.85 10^6/uL (4.00-5.40); WHITE BLOOD COUNT 8.1 10^3/uL (4.0-10.0)
[2023-12-01 06:55] LABS: ALBUMIN 2.6 G/DL (3.2-5.2); ALKALINE PHOSPHATASE 106 U/L (46-116); ALT/SGPT 73 U/L (7.0-40); AST/SGOT 10 U/L (<34); BILIRUBIN,TOTAL 0.4 MG/DL (0.3-1.2); BLOOD UREA NITROGEN 35 MG/DL (9-23); CALCIUM LEVEL 9.1 MG/DL (8.3-10.6); CARBON DIOXIDE LEVEL 26 MMOL/L (20-31); CHLORIDE LEVEL 107 MMOL/L (98-107); CREATININE FOR GFR 0.95 MG/DL (0.55-1.30); GLOMERULAR FILTRATION RATE > 60.0 (>45); GLUCOSE, FASTING 427 MG/DL (74-106); POTASSIUM SERUM 4.5 MMOL/L (3.5-5.1); SODIUM LEVEL 138 MMOL/L (136-145); TOTAL PROTEIN 4.9 G/DL (5.7-8.2)
[2023-12-01] MEDS: predniSONE 20 MG TAB PO SCH (08:27)
[2023-12-01 12:12] VITALS: BP 124/74; TEMP 97.9; O2SAT 97
[2023-12-01 20:10] VITALS: BP 129/69; TEMP 97.5; O2SAT 99
[2023-12-02 04:00] VITALS: BP 143/78; TEMP 97.3; O2SAT 100
[2023-12-02 06:12] LABS: HEMATOCRIT 35.1 % (36.0-47.0); MEAN CORPUSCULAR HEMOGLOBIN 27.4 pg (27.0-33.0); MEAN CORPUSCULAR HGB CONC 31.3 g/dl (32.0-36.5); MEAN CORPUSCULAR VOLUME 87.3 fl (80.0-96.0); PLATELET COUNT, AUTOMATED 164 10^3/uL (150-450); RED BLOOD COUNT 4.02 10^6/uL (4.00-5.40); WHITE BLOOD COUNT 8.5 10^3/uL (4.0-10.0)
[2023-12-02 06:38] LABS: ALBUMIN 2.7 G/DL (3.2-5.2); ALKALINE PHOSPHATASE 105 U/L (46-116); ALT/SGPT 75 U/L (7.0-40); AST/SGOT 11 U/L (<34); BILIRUBIN,TOTAL 0.4 MG/DL (0.3-1.2); BLOOD UREA NITROGEN 35 MG/DL (9-23); CARBON DIOXIDE LEVEL 29 MMOL/L (20-31); CHLORIDE LEVEL 109 MMOL/L (98-107); CREATININE FOR GFR 0.74 MG/DL (0.55-1.30); GLOMERULAR FILTRATION RATE > 60.0 (>45); GLUCOSE, FASTING 330 MG/DL (74-106); POTASSIUM SERUM 4.2 MMOL/L (3.5-5.1); SODIUM LEVEL 143 MMOL/L (136-145); TOTAL PROTEIN 5.1 G/DL (5.7-8.2)
[2023-12-02] MEDS: INSULIN LISPRO (NovoLOG) PER UNIT SC SCH (09:56)
[2023-12-02] MEDS: predniSONE 20 MG TAB PO SCH (09:57)
[2023-12-02 12:25] VITALS: BP 157/75; TEMP 97.5; O2SAT 94
[2023-12-02 19:30] VITALS: BP 116/72; TEMP 97.3; O2SAT 98
[2023-12-03 01:07] VITALS: O2SAT 96
[2023-12-03 04:00] VITALS: BP 107/69; TEMP 97.2; O2SAT 100
[2023-12-03 08:05] LABS: HEMATOCRIT 36.9 % (36.0-47.0); HEMOGLOBIN 11.5 g/dl (12.0-15.5); MEAN CORPUSCULAR HEMOGLOBIN 27.1 pg (27.0-33.0); MEAN CORPUSCULAR HGB CONC 31.2 g/dl (32.0-36.5); MEAN CORPUSCULAR VOLUME 86.8 fl (80.0-96.0); PLATELET COUNT, AUTOMATED 173 10^3/uL (150-450); RED BLOOD COUNT 4.25 10^6/uL (4.00-5.40); WHITE BLOOD COUNT 10.8 10^3/uL (4.0-10.0)
[2023-12-03 08:23] LABS: ALBUMIN 2.7 G/DL (3.2-5.2); ALKALINE PHOSPHATASE 115 U/L (46-116); ALT/SGPT 114 U/L (7.0-40); AST/SGOT 28 U/L (<34); BILIRUBIN,TOTAL 0.6 MG/DL (0.3-1.2); BLOOD UREA NITROGEN 32 MG/DL (9-23); CALCIUM LEVEL 9.3 MG/DL (8.3-10.6); CARBON DIOXIDE LEVEL 29 MMOL/L (20-31); CHLORIDE LEVEL 109 MMOL/L (98-107); CREATININE FOR GFR 0.75 MG/DL (0.55-1.30); GLOMERULAR FILTRATION RATE > 60.0 (>45); GLUCOSE, FASTING 119 MG/DL (74-106); SODIUM LEVEL 143 MMOL/L (136-145); TOTAL PROTEIN 5.1 G/DL (5.7-8.2)
[2023-12-03] MEDS: metFORMIN XR 500MG TAB *GLUCOPHAGE XR PO SCH (09:05)
[2023-12-03] MEDS: predniSONE 10MG TAB PO SCH (09:07)
[2023-12-03 12:22] VITALS: BP 133/85; TEMP 97.5; O2SAT 97
[2023-12-03] MEDS: INSULIN LISPRO (NovoLOG) PER UNIT SC SCH (17:55)
[2023-12-03 20:30] VITALS: BP 125/57; TEMP 97.3; O2SAT 94
[2023-12-04 03:10] VITALS: BP 120/62; TEMP 97.3; O2SAT 96
[2023-12-04 06:55] LABS: HEMATOCRIT 35.1 % (36.0-47.0); HEMOGLOBIN 10.9 g/dl (12.0-15.5); MEAN CORPUSCULAR HEMOGLOBIN 27.3 pg (27.0-33.0); MEAN CORPUSCULAR HGB CONC 31.1 g/dl (32.0-36.5); PLATELET COUNT, AUTOMATED 180 10^3/uL (150-450); RED BLOOD COUNT 3.99 10^6/uL (4.00-5.40); WHITE BLOOD COUNT 10.5 10^3/uL (4.0-10.0)
[2023-12-04 07:42] LABS: ALBUMIN 2.5 G/DL (3.2-5.2); ALKALINE PHOSPHATASE 104 U/L (46-116); ALT/SGPT 85 U/L (7.0-40); AST/SGOT < 8 U/L (<34); BILIRUBIN,TOTAL 0.5 MG/DL (0.3-1.2); BLOOD UREA NITROGEN 33 MG/DL (9-23); CALCIUM LEVEL 9.3 MG/DL (8.3-10.6); CARBON DIOXIDE LEVEL 30 MMOL/L (20-31); CHLORIDE LEVEL 109 MMOL/L (98-107); CREATININE FOR GFR 0.77 MG/DL (0.55-1.30); GLOMERULAR FILTRATION RATE > 60.0 (>45); GLUCOSE, FASTING 262 MG/DL (74-106); POTASSIUM SERUM 3.9 MMOL/L (3.5-5.1); SODIUM LEVEL 144 MMOL/L (136-145); TOTAL PROTEIN 4.7 G/DL (5.7-8.2)
[2023-12-04] MEDS: INSULIN LISPRO (NovoLOG) PER UNIT SC SCH (08:34)
[2023-12-04 12:11] VITALS: BP 118/70; TEMP 97.5; O2SAT 95
[2023-12-04 20:00] VITALS: BP 114/72; TEMP 97.9; O2SAT 94
[2023-12-05 04:00] VITALS: BP 119/73; TEMP 97.7; O2SAT 97
[2023-12-05 06:30] LABS: HEMATOCRIT 35.7 % (36.0-47.0); HEMOGLOBIN 11.2 g/dl (12.0-15.5); MEAN CORPUSCULAR HEMOGLOBIN 27.5 pg (27.0-33.0); MEAN CORPUSCULAR HGB CONC 31.4 g/dl (32.0-36.5); MEAN CORPUSCULAR VOLUME 87.7 fl (80.0-96.0); PLATELET COUNT, AUTOMATED 175 10^3/uL (150-450); RED BLOOD COUNT 4.07 10^6/uL (4.00-5.40); WHITE BLOOD COUNT 10.5 10^3/uL (4.0-10.0)
[2023-12-05 07:05] LABS: ALBUMIN 2.7 G/DL (3.2-5.2); ALKALINE PHOSPHATASE 104 U/L (46-116); ALT/SGPT 73 U/L (7.0-40); AST/SGOT < 8 U/L (<34); BILIRUBIN,TOTAL 0.6 MG/DL (0.3-1.2); BLOOD UREA NITROGEN 27 MG/DL (9-23); CALCIUM LEVEL 9.6 MG/DL (8.3-10.6); CARBON DIOXIDE LEVEL 30 MMOL/L (20-31); CHLORIDE LEVEL 107 MMOL/L (98-107); CREATININE FOR GFR 0.73 MG/DL (0.55-1.30); GLOMERULAR FILTRATION RATE > 60.0 (>45); GLUCOSE, FASTING 126 MG/DL (74-106); POTASSIUM SERUM 3.8 MMOL/L (3.5-5.1); SODIUM LEVEL 143 MMOL/L (136-145)
[2023-12-05] MEDS: CARBAMIDE PEROXIDE 6.5% OTIC SOLN 15ML AU SCH (10:22)
[2023-12-05 12:00] VITALS: BP 113/63; TEMP 97.3; O2SAT 95
[2023-12-05 20:00] VITALS: BP 124/73; TEMP 97; O2SAT 95
[2023-12-05] MEDS: guaiFENesin ER TABLET 600 MG TAB PO SCH (21:30)
[2023-12-05] MEDS: INSULIN LISPRO (NovoLOG) PER UNIT SC SCH (21:31)
[2023-12-05] MEDS: LEVEMIR (INSULIN DETEMIR) 1 UNITS/0.01ML SC SCH (21:31)
[2023-12-06 04:00] VITALS: BP 124/73; TEMP 97.5; O2SAT 98
[2023-12-06] MEDS: ALBUTEROL 90 MCG/ACT 8GM HFA INHALER INH PRN (04:59)
[2023-12-06 08:03] LABS: HEMATOCRIT 37.7 % (36.0-47.0); HEMOGLOBIN 11.6 g/dl (12.0-15.5); MEAN CORPUSCULAR HEMOGLOBIN 27.2 pg (27.0-33.0); MEAN CORPUSCULAR HGB CONC 30.8 g/dl (32.0-36.5); MEAN CORPUSCULAR VOLUME 88.5 fl (80.0-96.0); PLATELET COUNT, AUTOMATED 182 10^3/uL (150-450); RED BLOOD COUNT 4.26 10^6/uL (4.00-5.40); WHITE BLOOD COUNT 11.1 10^3/uL (4.0-10.0)
[2023-12-06] MEDS: INSULIN LISPRO (NovoLOG) PER UNIT SC SCH ×2 (08:04→08:05)
[2023-12-06 08:32] LABS: ALKALINE PHOSPHATASE 110 U/L (46-116); ALT/SGPT 69 U/L (7.0-40); AST/SGOT 12 U/L (<34); BILIRUBIN,TOTAL 0.6 MG/DL (0.3-1.2); BLOOD UREA NITROGEN 28 MG/DL (9-23); CALCIUM LEVEL 9.7 MG/DL (8.3-10.6); CARBON DIOXIDE LEVEL 30 MMOL/L (20-31); CHLORIDE LEVEL 106 MMOL/L (98-107); CREATININE FOR GFR 0.75 MG/DL (0.55-1.30); GLOMERULAR FILTRATION RATE > 60.0 (>45); GLUCOSE, FASTING 183 MG/DL (74-106); POTASSIUM SERUM 4.2 MMOL/L (3.5-5.1); SODIUM LEVEL 140 MMOL/L (136-145); TOTAL PROTEIN 5.5 G/DL (5.7-8.2)
[2023-12-06] MEDS ORDERED: HumuLIN N INSULIN (NovoLIN N) PER UNIT SC SCH (09:00)
[2023-12-06 12:00] VITALS: BP 125/72; TEMP 97.5; O2SAT 96
[2023-12-06 20:00] VITALS: BP 126/71; TEMP 97.4; O2SAT 95
[2023-12-07 04:00] VITALS: BP 129/72; TEMP 97.5; O2SAT 99
[2023-12-07] MEDS ORDERED: HUMA100I5 SC (09:36)
[2023-12-07 09:54] VITALS: O2SAT 96
== END 2023-12-07 10:51 | DRG 189 ==
LOC: M ED 19:47 → M ED INP 23:41 → M ICU 11-29 01:29 → M MSPAV 11-30 14:22
PROVIDERS: ADMIT Family Medicine; ATTEND Internal Medicine
DX: J96.21 Acute and chronic respiratory failure with hypoxia (principal); J44.1 Chronic obstructive pulmonary disease with (acute) exacerbation; I50.32 Chronic diastolic (congestive) heart failure; Z68.41 Body mass index [BMI] 40.0-44.9, adult; E66.2 Morbid (severe) obesity with alveolar hypoventilation; I11.0 Hypertensive heart disease with heart failure; Z99.81 Dependence on supplemental oxygen; F17.290 Nicotine dependence, other tobacco product, uncomplicated; K21.9 Gastro-esophageal reflux disease without esophagitis; I27.20 Pulmonary hypertension, unspecified; E11.65 Type 2 diabetes mellitus with hyperglycemia; J96.22 Acute and chronic respiratory failure with hypercapnia; E78.5 Hyperlipidemia, unspecified; Z91.119 Patient's noncompliance with dietary regimen due to unspecified reason; Z88.0 Allergy status to penicillin; Z88.2 Allergy status to sulfonamides; Z88.8 Allergy status to other drugs, medicaments and biological substances; Z79.899 Other long term (current) drug therapy; Z79.82 Long term (current) 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; Z79.4 Long term (current) use of insulin; K44.9 Diaphragmatic hernia without obstruction or gangrene